=== PATIENT | male | born 1950 | race Caucasian/White ===

== ENCOUNTER 2018-04-21 15:30 | Emergency (ER) | payer MEDICARE, SELFPAY ==
[2018-04-21 15:31] VITALS: BP 153/88; PULSE 77; RESP 17; TEMP 36.6; O2SAT 100; BMI 23.0
--- NOTE | 2018-04-21 15:46 | CT_ITS ---
CT/Abdomen/Pelvis without Cont IMPRESSION: Probable 5 mm left UVJ stone causing mild hydronephrosis. Electronically Signed: Willie Wright MD at 17:08 EDT , Service support ,
--- NOTE | 2018-04-21 15:47 | ED.VISSUMM ---
- ER Visit Summary Date of Service: 04/21/18 Chief Complaint: Abdominal pain History of Present Illness: The patient is a 67 M presenting with abdominal pain. Patient states it started earlier today and has been gradually worsening throughout the day. Pain is in the left lower quadrant. He has nausea with no vomiting. He has a history of previous gastrectomy and cholecystectomy. History of previous kidney stones and states this feels similar. Denies hematuria or dysuria. Physical Examination: Vitals are stable. Patient is afebrile. Alert no acute distress. HEENT exam is unremarkable. Neck is supple. Lungs are clear and equal bilaterally. Heart is regular rate and rhythm. Abdomen is soft mild left lower quadrant tenderness without rebound or guarding Extremities are unremarkable. Skin is warm and dry. No focal neurologic deficit. Remainder of exam is unremarkable. Emergency Department Course and Treatment: Patient is given IV fluids, morphine, Zofran IV. CBC normal except for platelet 142 which is at his baseline. Chemistry showed BUN 22. Urinalysis shows positive blood, [address] abdomen and pelvis shows probable 5 mm left UVJ stone causing mild hydronephrosis. Patient continues to have pain and was given additional dose of morphine. On reevaluation, he feels improved. He will follow-up with Dr. Gregg. Advised to return to ED for any worsening complaints. Disposition: Discharged home Impression: Urolithiasis This note was generated with PowerMag dictation software. It may contain incorrect words, spelling, and punctuation that were not noted in review of the chart prior to signing ED Disposition - Plan for ED Patient: Chief Complaint: Abd Pain Instructions: ED Stone Renal W Colic Prescriptions: Oxycodone HCl/Acetaminophen [Percocet 5/325] 1 tablet PO Q6H PRN PRN 3 Days #12 tablet PRN Reason: Pain Referrals: Torsten Gregg MD [STAFF PHYSICIAN] - Piyush Rivera MD [Primary Care Provider] -
[2018-04-21 16:22] LABS: Bacteria 0 SEEN /hpf (None Seen); Mucous, Urine 0 SEEN /hpf (<or=2+); Red Blood Cells-Urine 0 SEEN /hpf (0-5); Squamous Epithelial Cells - UA 0 SEEN /hpf (0-5); White Blood Cells 0 SEEN /hpf (0-5)
[2018-04-21 16:25] LABS: Color, Urine Yellow (Yellow); Glucose, Dipstick Normal (Normal); Ketone-Dipstick 5 mg/dl (Negative); Leukocyte Esterase-Dipstick Negative /ul (Negative); Nitrite-Dipstick Negative (Negative); Occult Blood-Urine 50 /ul (Negative); Protein-Dipstick Negative (Negative); Urine Bilirubin Dipstick Negative (Negative); Urine Clarity Clear (Clear); Urine Urobilinogen Normal (Normal)
[2018-04-21] MEDS: Morphine 4 MG/ML Syringe IV ×2 (16:27→17:42)
[2018-04-21] MEDS: Ondansetron 4 MG/2 ML Vial IV (16:28)
[2018-04-21 16:43] LABS: Absolute Lymphocyte Count 1.25 X10^3/ul (0.83-4.51); Absolute Neutrophil Count 5.8 X10^3/uL (2.0-7.7); Basophil# 0.02 X10^3/uL; Basophil% 0.3 % (0-1); Eosinophil# 0.07 X10^3/uL; Eosinophils% 0.9 % (0-5); Hematocrit 44.3 % (40-54); Hemoglobin 14.3 g/dl (13.0-16.5); Lymphocyte # 1.25 X10^3/ul (4.0); Mean Corp Hgb Conc 32.3 g/gl (32-36); Mean Corpuscular Hgb 29.2 pg (27.0-32.0); Mean Corpuscular Volume 90.6 fL (80-94); Mean Platelet Vol. 10.9 fl (6.2-12.0); Monocyte# 0.68 X10^3/uL; Monocyte% 8.7 % (0-10); Neutrophil # 5.79 X10^3/uL (2.7-7.7); Neutrophil % 74.1 % (47-70); Platelet Count 142 K/mm3 (150-450); RBC Distribution Width CV 14.2 % (11.6-14.6); RBC Distribution Width SD 46.7 fl (35.1-43.9); Red Blood Count 4.89 M/mm3 (4.6-6.2); White Blood Count 7.8 K/mm3 (4.4-11.0)
[2018-04-21 16:44] LABS: POSITIVE COUNT NO; POSITIVE DIFFERENTIAL NO; POSITIVE MORPHOLOGY NO
[2018-04-21 17:02] LABS: Anion Gap 9 (5-15); BUN 22 mg/dL (7-18); BUN/Creat Ratio 20.6 RATIO (10-20); Calcium,Total 8.8 mg/dL (8.5-10.1); Chloride 108 mmol/L (98-107); Creatinine, Serum 1.07 mg/dL (0.70-1.30); EST Glomerular Filtration Rate 73 mL/min (>60); Est Glom Filt Rate - Afr Amer 88 mL/min (>60); Estimated Creatinine Clearance 72.87 ml/min; Glucose 103 mg/dL (74-106); Potassium 4.5 mmol/L (3.5-5.1); Sodium Level 142 mmol/L (136-145)
[2018-04-21 17:46] VITALS: BP 156/87; PULSE 78; RESP 18; O2SAT 97
--- NOTE | 2018-04-21 18:21 | ED.DEP ---
ED Disposition - Plan for ED Patient: Chief Complaint: Abd Pain Instructions: ED Stone Renal W Colic Prescriptions: Oxycodone HCl/Acetaminophen [Percocet 5/325] 1 tablet PO Q6H PRN PRN 3 Days #12 tablet PRN Reason: Pain Referrals: Piyush Rivera MD [Primary Care Provider] - Torsten Gregg MD [STAFF PHYSICIAN] -
[2018-04-21 18:31] VITALS: PULSE 83; RESP 18; O2SAT 96
[2018-04-21] MEDS: oxyCODONE 5 MG Tablet PO (18:31)
== END 2018-04-21 18:32 | disposition home or self-care (01) ==
LOC: ED 16:14
PROVIDERS: Emergency Provider Emergency Medicine; Family Provider Internal Medicine; PCP Internal Medicine
DX: N13.2 Hydronephrosis with renal and ureteral calculous obstruction (principal); I10 Essential (primary) hypertension; N40.0 Benign prostatic hyperplasia without lower urinary tract symptoms; Z79.82 Long term (current) use of aspirin; Z79.899 Other long term (current) drug therapy; Z87.442 Personal history of urinary calculi; Z90.3 Acquired absence of stomach [part of]; Z90.49 Acquired absence of other specified parts of digestive tract
CPT/HCPCS: 74176; 80048; 81001; 85025; 96361; 96374; 96375; 96376; 99283; J7030; J7040; A4216; J2405

== ENCOUNTER → 2018-05-30 09:00 | Outpatient (CLI) | payer MEDICARE, SELFPAY ==
--- NOTE | 2018-05-30 09:04 | RAD_ITS ---
STUDY: X-RAY - ABDOMEN/PELVIS REASON FOR EXAM: Male, 68 years old. Follow-up kidney stones TECHNIQUE: Two AP supine views of the abdomen and pelvis. COMPARISON: CT abdomen pelvis 04/21/2018 FINDINGS: Normal visualized lung bases. The left urinary bladder calculus passed the UVJ on previous CT examination is not visualized. There are small phleboliths. There is an unremarkable bowel gas pattern. There is no demonstrated free abdominal air. The visualized liver, spleen and kidneys are grossly normal in size and morphology. Normal soft tissue structures. Surgical changes in the right upper abdomen and epigastrium. There are diffuse degenerative changes of the visualized lumbar spine. Dextroscoliosis. RAD/Abdomen Single View IMPRESSION: Resolution of previous left urinary bladder calculus past the left UVJ on previous CT. Stable degenerative changes, postsurgical changes and scoliosis. Electronically Signed: Karen Hutson MD at 4:13 EDT , Service support ,
== END ==
PROVIDERS: Family Provider Internal Medicine; PCP Internal Medicine; Visit Provider Urology
DX: N20.0 Calculus of kidney (principal)
CPT/HCPCS: 74018

== ENCOUNTER → 2019-01-29 10:12 | Outpatient (CLI) | payer MEDICARE, SELFPAY ==
--- NOTE | 2019-01-29 10:28 | EKG12_ITS ---
Test Reason : PRE OP Blood Pressure : / mmHG Vent. Rate : 072 BPM Atrial Rate : 072 BPM P-R Int : 148 ms QRS Dur : 128 ms QT Int : 426 ms P-R-T Axes : 054 -50 -05 degrees QTc Int : 466 ms Normal sinus rhythm Right bundle branch block Left anterior fascicular block Bifascicular block Abnormal ECG Confirmed by DONNELL GARCIA ([id number]), assignment desk editor ZEINA RANDALL ([id number]) on 01/31/2019 6:06:50 AM Referred By: Andres Hernandez Confirmed By:DONNELL GARCIA
[2019-01-29 10:45] LABS: Absolute Lymphocyte Count 1.59 X10^3/ul (0.83-4.51); Absolute Neutrophil Count 3.5 X10^3/uL (2.0-7.7); Basophil# 0.03 X10^3/uL; Basophil% 0.5 % (0-1); Eosinophil# 0.07 X10^3/uL; Eosinophils% 1.2 % (0-5); Hematocrit 45.4 % (40-54); Hemoglobin 14.9 g/dl (13.0-16.5); Lymphocyte # 1.59 X10^3/ul (4.0); Lymphocyte % 26.6 % (19-41); Mean Corp Hgb Conc 32.8 g/gl (32-36); Mean Corpuscular Hgb 29.6 pg (27.0-32.0); Mean Corpuscular Volume 90.1 fL (80-94); Mean Platelet Vol. 11.6 fl (6.2-12.0); Monocyte# 0.75 X10^3/uL; Monocyte% 12.6 % (0-10); Neutrophil # 3.52 X10^3/uL (2.7-7.7); Neutrophil % 58.9 % (47-70); Platelet Count 165 K/mm3 (150-450); RBC Distribution Width CV 13.8 % (11.6-14.6); RBC Distribution Width SD 45.4 fl (35.1-43.9); Red Blood Count 5.04 M/mm3 (4.6-6.2)
[2019-01-29 10:47] LABS: POSITIVE COUNT NO; POSITIVE DIFFERENTIAL NO; POSITIVE MORPHOLOGY NO
[2019-01-29 11:11] LABS: Anion Gap 8 (5-15); BUN 16 mg/dL (7-18); Chloride 107 mmol/L (98-107); Creatinine, Serum 1.07 mg/dL (0.70-1.30); EST Glomerular Filtration Rate 73 mL/min (>60); Est Glom Filt Rate - Afr Amer 88 mL/min (>60); Glucose 95 mg/dL (74-106); Potassium 4.2 mmol/L (3.5-5.1); Sodium Level 144 mmol/L (136-145)
== END ==
PROVIDERS: Family Provider Internal Medicine; PCP Internal Medicine; Referring Provider Physician Assistant; Visit Provider Physician Assistant
DX: Z01.810 Encounter for preprocedural cardiovascular examination (principal); I45.10 Unspecified right bundle-branch block
CPT/HCPCS: 36415; 80048; 85025; 93005

== ENCOUNTER → 2019-04-29 08:45 | Outpatient (CLI) | payer MEDICARE, SELFPAY ==
--- NOTE | 2019-04-29 08:00 | PROSBIL_PTH ---
PATIENT: SARAH HARDIN Jr. LOC: [facility] U#:[id number] AGE/SX: 75/M ROOM: RE04/29/[address]: Dr. Torsten Gregg MD : 1950 BED: DIS: SPEC #: [id number] RECD: 04/29/19 17:25 STATUS: JOSELO JOSE MARTIN #: [id number] OSMEL: 04/29/19 08:[address]: Torsten Gregg DEPT: SURGICAL PATHOLOGY RECD BY: Naz Stringer ENTERED: 04/30/19 11:17 SP TYPE: PROST BX LELA DR: Dr. Piyush Rivera MD Tissues: A - PROSTATE RIGHT B - PROSTATE RIGHT C - PROSTATE RIGHT D - PROSTATE LEFT E - PROSTATE LEFT F - PROSTATE LEFT Procedures: PROSTATE BX HEADER OPERATION: Prostate biopsy PRE-OP DIAGNOSIS: Elevated PSA TISSUE SUBMITTED: A - Right apex, B - Right mid, C - Right base, D - Left apex, E - Left mid, F - Left base MICROSCOPIC DIAGNOSIS A. Right prostate, apex, core biopsy: Prostatic tissue, negative for malignancy. Focal basal cell hyperplasia. B. Right prostate, mid, core biopsy: Prostatic tissue, negative for malignancy. Focal basal cell hyperplasia. C. Right prostate, base, core biopsy: Prostatic tissue, negative for malignancy. Focal atrophy and basal cell hyperplasia. D. Left prostate, apex, core biopsy: Prostatic tissue, negative for malignancy. Focal basal cell hyperplasia. E. Left prostate, mid, core biopsy: Prostatic tissue, negative for malignancy. Focal basal cell hyperplasia and mild chronic inflammation. F. Left prostate, base, core biopsy: Prostatic tissue, negative for malignancy. Focal atrophy and basal cell hyperplasia. SJ:gualberto 05/01/19 MICROSCOPIC DESCRIPTION Slides are reviewed. GROSS DESCRIPTION A - Received is one container designated prostate, right apex. The specimen consists of two elongated fragments of light sanders-white soft tissue each measuring 1 cm in length and 0.1 cm in diameter. The specimen is totally submitted in one cassette. B - Received is one container designated prostate, right mid. The specimen consists of two elongated fragments of light sanders-white soft tissue each measuring 1 cm in length and 0.1 cm in diameter. The specimen is totally submitted in one cassette. C - Received is one container designated prostate, right base. The specimen consists of two elongated fragments of light sanders-white soft tissue each measuring 1 cm in length and 0.1 cm in diameter. The specimen is totally submitted in one cassette. D - Received is one container designated prostate, left apex. The specimen consists of two elongated fragments of light sanders-white soft tissue each measuring 1 cm in length and 0.1 cm in diameter. The specimen is totally submitted in one cassette. E - Received is one container designated prostate, left mid. The specimen consists of two elongated fragments of light sanders-white soft tissue each measuring 1.5 cm in length and 0.1 cm in diameter. The specimen is totally submitted in one cassette. F - Received is one container designated prostate, left base. The specimen consists of two elongated fragments of light sanders-white soft tissue each measuring 1 cm in length and 0.1 cm in diameter. The specimen is totally submitted in one cassette. / AM:gualberto 04/30/19 TC:5 CPT: G0146
== END ==
PROVIDERS: Family Provider Internal Medicine; PCP Internal Medicine; Referring Provider Urology; Visit Provider Urology
DX: R97.20 Elevated prostate specific antigen [PSA] (principal)
CPT/HCPCS: 88305; G0416

== ENCOUNTER → 2020-06-22 09:04 | Outpatient (CLI) | payer MEDICARE, SELFPAY ==
[2020-06-22 10:32] LABS: PSA,Total- Diagnostic 7.55 ng/mL (0.0-4.0)
== END ==
PROVIDERS: PCP Internal Medicine; Referring Provider Urology; Visit Provider Urology
DX: R97.20 Elevated prostate specific antigen [PSA] (principal)
CPT/HCPCS: 36415; 84153

== ENCOUNTER → 2021-07-07 09:56 | Outpatient (CLI) | payer MEDICARE, SELFPAY ==
[2021-07-07 10:55] LABS: PSA,Total- Diagnostic 5.32 ng/mL (0.0-4.0)
== END ==
PROVIDERS: PCP Internal Medicine; Referring Provider Urology; Visit Provider Urology
DX: N40.1 Benign prostatic hyperplasia with lower urinary tract symptoms (principal)
CPT/HCPCS: 36415; 84153

== ENCOUNTER → 2022-04-20 | Outpatient (CLI) | payer MEDICARE, SELFPAY ==
[2022-04-20 15:18] LABS: PSA,Total- Diagnostic 6.14 ng/mL (0.0-4.0)
== END | disposition home or self-care (01) ==
LOC: LAB 14:23
PROVIDERS: PCP Internal Medicine; Referring Provider Urology; Visit Provider Urology
DX: N40.1 Benign prostatic hyperplasia with lower urinary tract symptoms (principal)
CPT/HCPCS: 36415; 84153

== ENCOUNTER → 2023-05-07 | Outpatient (CLI) | payer MEDICARE, SELFPAY ==
[2023-05-07 12:06] LABS: PSA,Total- Diagnostic 6.23 ng/mL (0.0-4.0)
== END | disposition home or self-care (01) ==
LOC: LAB.FUTURE 11:11
PROVIDERS: PCP Internal Medicine; Referring Provider Urology; Visit Provider Urology
DX: R97.20 Elevated prostate specific antigen [PSA] (principal); N40.1 Benign prostatic hyperplasia with lower urinary tract symptoms
CPT/HCPCS: 36415; 84153

== ENCOUNTER → 2024-10-28 | Outpatient (CLI) | payer MEDICARE, SELFPAY | END | disposition home or self-care (01) | LOC: LAB 11:32 | PROVIDERS: PCP Internal Medicine; Referring Provider Nurse Practitioner; Visit Provider Nurse Practitioner | DX: R97.20 Elevated prostate specific antigen [PSA] (principal) | CPT/HCPCS: 36415; 84153 ==

== ENCOUNTER → 2024-11-06 | Outpatient (CLI) | payer MEDICARE, SELFPAY ==
[2024-11-09 08:08] LABS: PSA, Free 3.97 ng/mL; PSA, Free % 23.2 % (.)
== END | disposition home or self-care (01) ==
LOC: LAB 15:37
PROVIDERS: PCP Internal Medicine; Referring Provider Urology; Visit Provider Urology
DX: R97.20 Elevated prostate specific antigen [PSA] (principal)
CPT/HCPCS: 36415; 84153; 84154

== ENCOUNTER → 2024-12-25 | Outpatient (CLI) | payer MEDICARE, SELFPAY ==
--- NOTE | 2024-12-25 11:18 | MRI_ITS ---
PROCEDURE: PELVIS W/WO CONTRAST (MRIPELWW), 12/25/2024 REASON FOR EXAM: ELEVATED PSA. PSA reportedly 17.0 per technologist report. TECHNIQUE: Multisequence multiplanar MRI pelvis was performed with and without IV contrast. CONTRAST: 15 mL Clariscan COMPARISON: None FINDINGS: Variable overall mild motion limitation. A few sequences are moderately motion degraded. Prostate size: 7.1 x 5.7 x 7.8 cm, estimated volume 164 mL. Per the above provided PSA, PSA density is 0.104 ng/mL. Transition zone: PI-RADS 2 findings. Peripheral Zone: Minimal background changes of likely prostatitis (PI-RADS 2). Neurovascular bundles: Unremarkable. Seminal vesicles: Unremarkable. Bladder: Underdistended and suboptimally evaluated. Mass-effect by the enlarged prostate with appearance suggestive of chronic bladder outlet obstruction. Lymph nodes: Borderline mildly enlarged RIGHT inguinal node, 14 mm short axis. Enlarged RIGHT posterolateral mesorectal node measures 13 x 7 mm. Bones: Diffusely heterogeneous marrow signal. Ill-defined suspicious enhancement and restricted diffusion in the RIGHT superior pubic ramus spanning 3.2 cm. Additional areas of small restricted diffusion in the anterior acetabuli bilaterally without measurable correlate in some areas. Tiny foci of enhancement in the anterior RIGHT sacrum abutting the SI joint of 2 7 mm could be degenerative. Lumbar spondylosis. Other: None. MRI/Pelvis W/WO Contrast IMPRESSION: 1. Marked prostatomegaly and sequela of minimal likely prostatitis without high risk lesion identified (PI-RADS 2). 2. Findings suspicious for pelvic bony metastasis in light of reported history of malignancy, largest lesion in the RIGHT pubic bone measures 3.2 cm with some being difficult to discretely measure. A few ti ny foci of enhancement in the RIGHT sacrum adjacent the SI joint may be degenerative. Clinical/oncologic follow-up recomm ended. 3. Enlarged RIGHT posterolateral mesorectal node is nonspecific and may be reac tive in the absence of known rectal neoplasm, however given the context, close follow-up is warranted. 4. Borderline mildly enlarged RIGHT inguinal node. Attention on follow-up. 5. Additional description as above. Reading Location: [id number]
== END | disposition home or self-care (01) ==
PROVIDERS: PCP Internal Medicine; Referring Provider Urology; Visit Provider Urology
DX: R97.20 Elevated prostate specific antigen [PSA] (principal)
CPT/HCPCS: 72197; A9575; A4216

== ENCOUNTER → 2025-01-05 | Outpatient (CLI) | payer MEDICARE, SELFPAY ==
--- NOTE | 2025-01-05 08:00 | PROSBIL_PTH ---
PATIENT: SARAH HARDIN Jr. LOC: [facility] U#:[id number] AGE/SX: 74/M ROOM: RE01/05/[address]: Dr. Torsten Gregg MD : 1950 BED: DIS: 01/05/2025 SPEC #: [id number] RECD: 01/05/25 13:00 STATUS: JOSELO JOSE MARTIN #: [id number] OSMEL: 01/05/25 08:[address]: Torsten Gregg DEPT: SURGICAL PATHOLOGY RECD BY: Doroteo Vital ENTERED: 01/06/25 08:23 SP TYPE: PROST BX LELA DR: Dr. Piyush Rivera MD Tissues: A - PROSTATE RIGHT B - PROSTATE RIGHT C - PROSTATE RIGHT D - PROSTATE LEFT E - PROSTATE LEFT F - PROSTATE LEFT Procedures: PROSTATE BX HEADER OPERATION: Prostate biopsy PRE-OP DIAGNOSIS: Elevated PSA TISSUE SUBMITTED: A - Right apex, B - Right mid, C - Right base, D - Left apex, E - Left mid, F - Left base MICROSCOPIC DIAGNOSIS A. Prostate, right apex, biopsy: * Benign prostatic tissue B. Prostate, right mid, biopsy: * Benign prostatic tissue C. Prostate, right base, biopsy: * Benign prostatic tissue D. Prostate, left apex, biopsy: * Benign prostatic tissue E. Prostate, left mid, biopsy: * Benign prostatic tissue F. Prostate, left base, biopsy: * Benign prostatic tissue MICROSCOPIC DESCRIPTION Slides are reviewed. GROSS DESCRIPTION A. Received in formalin in a container labeled with the patient's name, date of , and RA is a 0.8 x 0.1 cm thin and wispy core biopsy of soft tissue. Submitted in toto in A1. B. Received in formalin in a container labeled with the patient's name, date of , and RM is a 1.0 x 0.1 cm white and wispy core biopsy of soft tissue. Submitted in toto in B1. C. Received in formalin in a container labeled with the patient's name, date of , and RB is a 1.3 x 0.1 cm core biopsy of white and wispy soft tissue. Submitted in toto in C1. D. Received in formalin in a container labeled with the patient's name, date of , and LA is a 1.4 x 0.1 cm thin and wispy core biopsy of soft tissue. Submitted in toto in D1. E. Received in formalin in a container labeled with the patient's name, date of , and LM is a 1.0 x 0.1 cm white and wispy core biopsy of soft tissue. Submitted in toto in E1. F. Received in formalin in a container labeled with the patient's name, date of , and LB is a 1.3 x 0.1 cm white and wispy core biopsy of soft tissue. Submitted in toto in F1. [facility] 01-06-2025 CPT: G0146
== END | disposition home or self-care (01) ==
LOC: LABSPEC 16:57
PROVIDERS: PCP Internal Medicine; Referring Provider Urology; Visit Provider Urology
DX: R97.20 Elevated prostate specific antigen [PSA] (principal)
CPT/HCPCS: 88305; G0416

== ENCOUNTER → 2025-01-08 | Outpatient (CLI) | payer MEDICARE, SELFPAY ==
--- NOTE | 2025-01-08 10:02 | NM_ITS ---
PROCEDURE: BONE SCAN WHOLE BODY 01/08/2025 REASON FOR EXAM: ELEVATED PROSTATE SPECIFIC ANTIGEN TECHNIQUE: Anterior and posterior body bone scan performed after radiopharmaceutical administration RADIOPHARMACEUTICAL: 28 mCi Technetium-99m MDP IV COMPARISON: CORRELATION WITH EXISTING RELEVANT IMAGING STUDIES (i.e. x-ray, MRI, CT, etc.): No existing relevant imaging study available , patient did not have a previous relevant imaging study. FINDINGS: Mild thoracolumbar dextroscoliosis is noted Degenerative changes are seen of the knees, spine, and bilateral 1st carpal- metacarpal joints. No findings are seen to suggest the presence of osseous metastatic disease. NM/Bone Scan Whole Body IMPRESSION: No scintigraphic evidence of osseous metastatic disease Reading Location: [place] [id number]
== END | disposition home or self-care (01) ==
LOC: NM 09:58
PROVIDERS: PCP Internal Medicine; Referring Provider Urology; Visit Provider Urology
DX: R97.20 Elevated prostate specific antigen [PSA] (principal)
CPT/HCPCS: 78306; A9503

== ENCOUNTER 2025-02-15 08:23 | Emergency (ER) | payer MEDICARE, SELFPAY ==
[2025-02-15 08:23] VITALS: BP 154/81; PULSE 88; RESP 16; TEMP 36.6; O2SAT 99; BMI 23.3
--- NOTE | 2025-02-15 08:34 | EDS_ITS ---
HPI History of Present Illness Chief Complaint: Complaint [facility] Medical History (Updated 02/15/25 @ 09:[address] Deshawn Mendez DO) History of gastric cancer History of kidney stones Hypertension Acute calculous cholecystitis Home Medications ?Medication ?Instructions ?Recorded ?Last Taken ?Type amlodipine 10 mg tablet 10 mg PO DAILY blood pressur e 12/15/16 08/15/17 History aspirin 81 mg chewable tablet 81 mg PO QHS heart 12/1508/14/17 History finasteride 5 mg tablet 5 mg PO DAILY prostate 12/1508/14/17 History folic acid 400 mcg tablet 0.4 mg PO DAILY supplement 0 12/15/16 08/14/17 History uxauwrky-kor-atjps acid 0.4 1 ea PO DAILY supplement 0 12/15/16 08/14/17 History mg-lycopene 300 mcg-lutein 250 mcg tablet tamsulosin 0.4 mg capsule 0.4 mg PO QHS prostate 12/1508/14/17 History vitamin B complex 1 ea PO QMONTH 12/15/1606/27 History ergocalciferol (vitamin D2) 1,250 50,000 units PO MO s upplement 08/15/17 08/13/17 History mcg (50,000 unit) capsule ciprofloxacin HCl 500 mg tablet 500 mg PO BID #14 TABL ETS 02/15/25 Unknown Rx lisinopril 40 mg tablet 40 mg PO DAILY 02/15/25 Unkn own History Allergy/AdvReac Type Severity Reaction Status Date / Time No Known Allergies Allergy Verified 02/15/25 08:23 Surgical History (Updated 08/24/17 @ 08:48 by Luna Conde) S/P laparoscopic cholecystectomy (~08/16/17) Social History (Updated 08/28/17 @ 13:[address] Ruperto Berrios MD) Smoking Status: Former smoker EXAM Physical Exam Const Vital Signs: 02/15/25 08:23 Temperature 97.8 F Temperature Source Oral Pulse Rate 88 Respiratory Rate 16 Blood Pressure 154/81 H Blood Pressure Mean 105 Pulse Ox 99 Oxygen Delivery Method Room Air MDM MDM MDM Narrative Medical decision making narrative: HISTORY OF PRESENT ILLNESS: Chief complaint: Urinary retention 74-year-old male history of hypertension, BPH on tamsulosin and finasteride presents with inability urinate. He states this began []. He endorses dribbling a few drops. Endorses constant pressure and urge to urinate. Notes lower abdominal pain as well. REVIEW OF SYSTEMS: Pertinent positives: Urinary retention Pertinent negatives: As per [facility] PHYSICAL EXAM: Nursing triage notes reviewed, Vital signs reviewed Constitutional: please see [facility] HENT: MMM Eyes: Pupils equal round and reactive to light, Extraocular muscles intact Neck: No stridor, no JVD, full neck ROM Lungs: Clear to auscultation, No wheezing or rales. No increased work of breathing, no conversational dyspnea, no accessory muscle use, no nasal flaring. No respiratory distress noted Heart: Regular rate and rhythm, No murmurs, No rubs and No gallops, 2+ distal pulses (radial, femoral, posterior tibial) in all extremities Abdomen: Soft, there is no tenderness, obvious distention to lower abdomen over bladder, no rigidity, rebound or guarding, no obvious peritoneal signs, no palpable pulsatile abdominal masses, no auscultated abdominal bruit : No CVAT Extremities: No edema Neuro: No new focal neurological deficits, cranial nerves II through XII intact, 5/5 strength in all present extremities. Intact sensation to light touch in all present extremities, 2+ reflexes bilateral patella tendons. Skin: No rash or lesions noted MEDICAL DECISION MAKING: Chief Complaint: please see [facility] External records reviewed: Reviewed prior imaging studies, reviewed current medi cations Factors affecting care: history of nephrolithiasis, BPH Social determinants of health: none History obtained from others: none Consults: none [facility] Narrative: The patient was initially hemodynamically stable, afebrile and nontoxic- appearing. Exam consistent with urinary tension. Bedside bladder scan showed bladder volume approximate 850 cc I considered the following differential diagnosis: Urinary retention, ALICIA, UTI I obtained labs including BMP and urinalysis to assess if there is any sign of ALICIA or UTI. Mcmahon catheter was placed with return of approximately 1 L of clear urine. Patient noted immediate relief. ALL IMAGES (IF OBTAINED) HAVE BEEN PERSONALLY REVIEWED AND INTERPRETED BY MYSELF. CBC without leukocytosis, severe anemia, no thrombocytopenia. CMP without evidence of acute kidney injury, significant electrolyte abnormality, anion gap to suggest end organ hypo-perfusion, no evidence of metabolic acidosis with a normal bicarbonate, no evidence of hepatobiliary obstructive pathology Urinalysis, urine culture pending. Will prophylactically treat with antibiotics given urinary retention and recent urethral manipulation with Mcmahon catheter placement. Will give instructions on Mcmahon catheter management, return precautions, follow-up instructions with urology. The patient and/or family, caregivers express understanding. The patient and/or family, caregivers agrees with the plan. Shared decision making: I will have a discussion with the patient and or visitors regarding risk/benefits of further testing or admission. They will be made aware of of the risk/benefits inherent in this decision they will be given the opportunity to voice understanding. Total critical care time today provided was at least 0 minutes. This excludes separately billable procedures. Critical care time (if documented) is secondary to the patient having high probability of clinically significant/life threatening deterioration in the patient's condition which required my urgent intervention. Impression: 1. Urinary tension 2. History of BPH Dispo: Discharge home This note was generated with [employer] [place] dictation software. It may contain incorrect words, spelling, and punctuation that were not noted in review of the chart prior to signing. Lab Data Labs: Laboratory Results - last 24 hr 02/15/25 08:55 WBC 9.7 RBC 4.57 L Hgb 13.2 Hct 40.0 MCV 87.5 MCH 28.9 MCHC 33.0 RDW Std Deviation 45.8 H RDW Coeff of Gogo 14.4 Plt Count 183 MPV 11.1 Immature Gran % (Auto) 0.500 Neut % (Auto) 79.4 H Lymph % (Auto) 11.3 L Daniels % (Auto) 8.3 Eos % (Auto) 0.2 Baso % (Auto) 0.3 Absolute Neuts (auto) 7.7 Absolute Lymphs (auto) 1.09 Nucleated RBC % 0 Sodium 140 Potassium 3.9 Chloride 104 Carbon Dioxide 25.1 Anion Gap 11 BUN 17 Creatinine 1.16 Estim Creat Clear Calc 59.50 Est GFR (MDRD) Non-Af 66 BUN/Creatinine Ratio 14.7 Glucose 123 H Calcium 9.1 Discharge Plan Triage Chief Complaint: Complaint ED Provider: Deshawn Mendez Dx/Rx/DC Orders Clinical Impression: Urinary retention Instructions: ED Mcmahon Catheter, Care, ED Urinary Retention, Male Prescriptions: New ciprofloxacin HCl 500 mg tablet 500 mg PO BID Qty: 14 0RF No Action folic acid 0.4 MG tablet 0.4 mg PO DAILY Patient Comments: supplement tamsulosin 0.4 MG capsule 0.4 mg PO QHS Patient Comments: prostate amlodipine 10 MG tablet 10 mg PO DAILY Patient Comments: blood pressure aspirin 81 MG tablet,chewable 81 mg PO QHS Patient Comments: health maintenance finasteride 5 MG tablet 5 mg PO DAILY Patient Comments: prostate vitamin B complex 1 EACH capsule 1 ea PO QMONTH Patient Comments: supplement uczrsdly-rwi-AX-lycopen-lutein 1 EACH tablet 1 ea PO DAILY Patient Comments: supplement ergocalciferol (vitamin D2) 50,000 U capsule 50,000 units PO MO Patient Comments: lisinopril 40 mg tablet 40 mg PO DAILY Primary Care Provider: Piyush Rivera Referrals: Torsten Gregg MD [Med Staff - Active Staff] - Activity Restrictions/Additional Instructions: Thank you for trusting us with your care today! Your history, physical exam and labs were most consistent with urinary retention. Please keep Mcmahon in place until you follow-up with urology as an outpatient. You have been prescribed antibiotics given Mcmahon catheter increased risk of infection please take antibiotics as prescribed. Please take Tylenol (2 pills, 650 mg), ibuprofen (2 pills, 400 mg) every 6 hours as needed for pain and fever control. Please return to the emergency department if your symptoms change or worsen. Please follow with your primary care physician for further outpatient evaluation and management. Print Language: Lebanese Disposition Disposition: Home, Self Care
--- OUTSIDE RECORDS SUMMARY | 2025-02-15 08:45 | XMS RPT_ITS | CCD ---
Author Organization [facility] Care Team Providers Care Bus And Trolley Dispatcher Name Role Phone Miguel EDWARDS, Piyush Naidu Primary Care Provider Miguel EDWARDS, Piyush Naidu Primary Care Provider Ju SIMEON.Negra JENNINGS Unavailable Miguel EDWARDS, Dr. Pickett Primary Care Provider Maspeth, Michelle Attending Provider [phone] Maspeth, Michelle Referring Provider [phone] Cristino EDWARDS, Dr. Torsten Mccord Attending Provider Cristino EDWARDS, Dr. Torsten Mccord Referring Provider Torsten Gregg Attending Unavailable Rivera, Piyush Primary Care Unavailable CristinoTorsten Referring Unavailable Rivera, Piyush Primary Care Unavailable Maspeth, Michelle Attending Unavailable MaspethMichelle Referring Unavailable CristinoTorsten Referring Unavailable Rivera, Piyush Primary Care Unavailable CristinoTorsten Attending Unavailable CristinoTorsten Referring Unavailable Rivera, Piyush Primary Care Unavailable CristinoTorsten Attending Unavailable CristinoTorsten Referring Unavailable Rivera, Piyush Primary Care Unavailable CristinoTorsten Attending Unavailable NEGRA UGALDE Referring Unavailable RIVERA, PIYUSH Naidu Primary Care Unavailable RIVERAPIYUSH Attending Unavailable RIVERA, FROILAN Primary Care Unavailable RIVERA, PIYUSH Naidu Referring Unavailable RIVERA, PIYUSH Naidu Primary Care Unavailable RIVERA, PIYUSH Naidu Primary Care Unavailable RIVERA, PIYUSH Naidu Primary Care Unavailable RIVERA, PIYUSH Naidu Primary Care Unavailable RIVERA, PIYUSH Naidu Referring Unavailable RIVERA, PIYUSH Naidu Primary Care Unavailable RIVERA, PIYUSH Naidu Attending Unavailable RIVERA, FROILAN Primary Care Unavailable RIVERA, FROILAN Primary Care Unavailable RIVERA, PIYUSH Naidu Primary Care Unavailable AMEYA AGUDELO Referring Unavailable RIVERA, PIYUSH Naidu Primary Care Unavailable RIVERA, PIYUSH Naidu Attending Unavailable RIVERA, PIYUSH Naidu Primary Care Unavailable RIVERA, PIYUSH Naidu Primary Care Unavailable NEGRA UGALDE Attending Unavailable RIVERA, PIYUSH Naidu Primary Care Unavailable RIVERA, PIYUSH Naidu Primary Care Unavailable RIVERA, PIYUSH Naidu Referring Unavailable RIVERA, PIYUSH Naidu Primary Care Unavailable RIVERA, PIYUSH Naidu Primary Care Unavailable RIVEAR, PIYUSH Naidu Primary Care Unavailable RIVERA, PIYUSH Naidu Primary Care Unavailable RIVERA, PIYUSH Naidu Referring Unavailable RIVERA, PIYUSH Naidu Primary Care Unavailable RIVERA, PIYUSH Naidu Referring Unavailable RIVERA, PIYUSH Naidu Primary Care Unavailable RIVERA, PIYUSH Naidu Primary Care Unavailable AMEYA AGUDELO Referring Unavailable RIVERA, PIYUSH Naidu Primary Care Unavailable RIVERA, PIYUSH Naidu Attending Unavailable RIVERA, PIYUSH Naidu Primary Care Unavailable RIVERA, PIYUSH Naidu Primary Care Unavailable Allergies Allergy Classification Reported Allergen(s) Allergy Type Date of Onset Reaction(s) Facility Bacitracin / Polymyxin B (1 source) Bacitracin / Polymyxin B Drug Allergy 07-15-2007 [facility] Work Phone: (20 sources) Bacitracin / Polymyxin B; Translations: [BACITRACIN-POLYM YXIN B] Drug Allergy 07-15-2007 [facility] Work Phone: Medications Current Medications Medication Drug Class(es) Dates Sig (Normalized) Sig (Original) acetaminophen 325 mg / oxyCODONE hydrochloride 5 mg oral tablet (5 sources) Opioid Agonist Start: 04-21-2018 Oxycodone-Acetamin ophen 1 TABLET tablet Active 1 {tbl} PO EVERY 6 HOURS NEEDED as needed for Pain 07 29April 21, 2018 12:00am Start: 04-21-2018 take 1 tablet by jammie th every six hours as needed Oxycodone-Acetaminophen Active 1 TABLET PO EVERY 6 HOURS NEEDED 07 29April 21, 2018 12:00am amLODIPine 10 mg oral tablet (20 sources) Dihydropyridine Calcium Channel Paulina Start: 12-15-2016 End: 08-28-2024 take 1 tablet by mouth once daily amLODIPine (NORVASC) 10 mg tablet Take 1 tablet by mouth once daily. 90 tablet 3 02/20/2024 Active Comment on above: Take 1 tablet by jammie th once daily. aspirin 81 mg chewable tablet (20 sources) Platelet Aggregation Inhibitor, Nonsteroidal Anti-inflammatory Drug Start: 12-15-2016 take 1 tablet by mouth at bedtime Aspirin 81 MG tablet,chewable Active 81 mg PO AT BEDTIME December 15, 2016 12:00am Start: 02-08-2015 take 1 tablet by jammie th once daily aspirin, enteric coated (ASPIR-81) 81 mg EC tablet Take 1 tablet by mouth once daily. 100 tablet 0 02/08/2015 Active Comment on above: Take 1 tablet by jammie th once daily. CENTRUM SILVER TAB (20 sources) Start: CENTRUM SILVER TAB Take one(1) tablet daily. 0 06/30/2005 Active Comment on above: Take one(1) tablet d aily. dextromethorphan hydrobromide 30 mg / pyrilamine maleate 30 mg oral tablet (5 sources) Uncompetitive N-uxmrly-O-aspartate Receptor Antagonist, Sigma-1 Agonist Start: take 1 tablet by mouth every six hours as needed pyrilamine-dextrometh orphan (CAPRON DMT) 30-30 mg tab Take 1 tablet by mouth every 6 hours as needed. 30 tablet 11/25/2024 Active ergocalciferol 1.25 mg oral capsule (20 sources) Provitamin D2 Compound Start: 025 End: 025 take 1 capsule by mouth every week ergocalciferol 50,000 unit capsule (VITAMIN D2, DRISDOL) Take 1 capsule by mouth one time a week. 12 capsule 3 12/26/2024 Active Start: 02-05-2023 End: 01-30-2024 take 1 capsule by mouth every week ergocalciferol 50,000 unit capsule (VITAMIN D2, DRISDOL) Take 1 capsule by mouth one time a week. 12 capsule 3 01/30/2024 Active Start: 11-25-2021 End: 02-20-2022 take 1 capsule by mouth every week ergocalciferol 50,000 unit capsule (VITAMIN D2, DRISDOL) Take 1 capsule by mouth one time a week. 12 capsule 11/25/2021 02/20/2022 Discontinued Start: 08-15-2017 Ergocalciferol (Vitamin D2) 27335 U capsule Active 96886 U PO MO August 15, 2017 1:00am Comment on above: Take 1 capsule by mo [facility] one time a week. finasteride 5 mg oral tablet (20 sources) 5-alpha Reductase Inhibitor Start: 07-30-2014 End: 02-25-2024 take 1 tablet by mouth once daily Finasteride 5 MG tablet Active 5 mg PO DAILY December 15, 2016 12:00am Comment on above: Take 1 tablet by jammie once daily. folic acid 0.4 mg oral tablet (20 sources) Start: 12-15-2016 take 1 tablet by mouth once daily Folic Acid 0.4 MG tablet Active 0.4 mg PO DAILY December 15, 2016 12:00am Start: 09-28-2015 take 1 tablet by jammie th once daily folic acid 400 mcg tablet Take 1 tablet by mouth once daily. 0 09/28/2015 Active Comment on above: Take 1 tablet by jammie once daily. lisinopril 40 mg oral tablet (20 sources) Angiotensin Converting Enzyme Inhibitor Start: take 1 tablet by mouth once daily lisinopril (ZESTRIL) 40 mg tablet Indications: Essential hypertension Take 1 tablet by mouth once daily. 90 tablet 3 12/19/2024 Active Start: 05-19-2024 take 1 tablet by jammie th once daily lisinopril (ZESTRIL) 40 mg tablet Indications: Essential hypertension Take 1 tablet by mouth once daily. 90 tablet 1 05/19/2024 Active Start: 05-14-2024 End: 05-19-2024 take 1 tablet by mouth once daily lisinopril (ZESTRIL) 20 mg tablet Indications: Essential hypertension Take 1 tablet by mouth once daily. 30 tablet 5 05/14/2024 05/19/2024 Discontinued (Dosage adjustment) Start: 04-16-2024 End: 05-12-2024 take 2 tablets by mouth once daily lisinopril (ZESTRIL) 10 mg tablet Indications: Essential hypertension Take 2 tablets by mouth once daily. 5 04/16/2024 05/12/2024 Discontinued Start: 04-07-2024 End: 04-16-2024 take 1 tablet by mouth once daily lisinopril (ZESTRIL) 10 mg tablet Indications: Essential hypertension Take 1 tablet by mouth once daily. 30 tablet 5 04/07/2024 04/16/2024 Discontinued Start: 03-03-2024 End: 04-07-2024 take 1 tablet by mouth once daily lisinopril (ZESTRIL) 5 mg tablet Indications: Essential hypertension Take 1 tablet by mouth once daily. 30 tablet 5 03/03/2024 04/07/2024 Discontinued (Dosage adjustment) Eydprmcp-Mbx-Pa-Lycopen-Lute in (2 sources) Start: 12-15-2016 Ygbwyyxg-Uqw-Ig-Lycopen-Lute in Active 1 EACH PO DAILY December 15, 2016 12:00am Usehxqwy-Gwd-Rr-Lycopen-Lute in 1 EACH tablet (3 sources) Start: 12-15-2016 Zrhyxmpk-Pxn-Qc-Lycopen-Lute in 1 EACH tablet Active 1 NMA PO DAILY December 15, 2016 12:00am mupirocin 0.02 mg/mg topical ointment (1 source) RNA Synthe tase Inhibi tor Antiba cteria l Start: 05-25-2023 End: 05-30-2023 mupirocin (BACTROBAN) 2 % ointment Apply to affected area three times a day for 5 days. 22 g 0 05/25/2023 05/30/2023 Active Comment on above: Apply to affected ar ea three times a day for 5 days. tamsulosin hydrochloride 0.4 mg oral capsule (20 sources) alpha- Adrene rgic Herrerae r Start: 06-05-2016 End: 06-09-2024 take 1 capsul e by mouth once daily at bedtim e tamsulosin (FLOMAX) 0.4 mg Take 1 capsule by mouth daily at bedtime. 90 capsule 4 06/10/2024 Active Comment on above: Take 1 capsule by [facility] daily at bedtime. Vitamin B Complex (2 sources) Start: 12-15-2016 Vitamin B Complex Active 1 E ACH PO EVERY MONTH December 15, 2016 12:00am Vitamin B Complex 1 EACH capsule (3 sources) Start: 12-15-2016 Vitamin B Complex 1 EACH capsule Active 1 NMA PO EVERY MONTH December 15, 2016 12:00am vitamin b12 1 mg/ml injectab le solution (20 sources) Vitami n B12 Start: 10-13-2024 End: 09-13-2025 1,000 mcg, INTRAMUSCULAR, EV PEDRO 4 WEEKS, 12 doses, First dose on Sun10/13/24 at 0000, Last dose on Sun08/17/25 at 0000 Start: 10-13-2024 End: 09-13-2025 cyanocobalamin 1,000 mcg inj ection Start: 10-01-2023 End: 09-24-2024 1,000 mcg, INTRAMUSCULAR, EV PEDRO 1 MONTH, 12 doses, First dose on Sun10/01/23 at 0000, Last dose on Sun08/26/24 at 0000 Start: 10-01-2023 End: 09-24-2024 cyanocobalamin 1,000 mcg inj ection Start: 02-25-2019 End: 09-26-2023 cyanocobalamin 1,000 mcg inj ection Problems Active Problems Problem Classification Problem Date Documented Date Episodic/Chronic Aortic; peripheral; and visceral artery aneurysms (20 sources) Aneurysm of ascending aorta; Translations: [Aneurysm of ascending aorta without rupture] Onset: 04-30-2024 04-30-2024 Chronic Biliary tract disease (5 sources) Acute cholecystitis due to biliary calculus; Translations: [Calculus of gallbladder with acute cholecystitis without obstruction] 08-24-2017 Episodic Calculus of urinary tract (5 sources) History of calculus of kidney; Translations: [Personal history of urinary calculi] 08-24-2017 Episodic Cancer of stomach (5 sources) History of malignant neoplasm of stomach; Translations: [Personal history of other malignant neoplasm of stomach] 08-24-2017 Episodic Comment on above: Status post total ga strectomy. Essential hypertension (20 sources) Essential hypertension; Translations: [Essential (primary) hypertension] Onset: 03-05-2009 09-07-2015 Chronic Hyperplasia of prostate (20 sources) Benign prostatic hyperplasia; Translations: [Benign prostatic hyperplasia without lower urinary tract symptoms] Onset: 08-15-2007 Resolved: 07-30-2014 07-30-2014 Chronic Immunizations and screening for infectious disease (6 sources) Vaccination needed; Translations: [Encounter for immunization] Episodic Nutritional deficiencies (20 sources) Vitamin D deficiency; Translations: [Vitamin D deficiency, unspecified] Onset: 07-31-2011 07-31-2011 Chronic Nutritional deficiencies (3 sources) Cobalamin deficiency; Translations: [Deficiency of other specified B group vitamins] Onset: 12-02-2024 12-02-2024 Episodic Open wounds of extremities (1 source) Disorder of lower extremity; Translations: [Unspecified open wound, left lower leg, initial encounter] 05-25-2023 Episodic Other circulatory disease (20 sources) Raynaud's phenomenon; Translations: [Raynaud's syndrome without gangrene] Onset: 07-14-2022 Chronic Other connective tissue disease (1 source) Atrophy of muscle of left lower leg; Translations: [Muscle wasting and atrophy, not elsewhere classified, left lower leg] Episodic Other connective tissue disease (3 sources) Weakness of left leg; Translations: [Other symptoms and signs involving the musculoskeletal system] Onset: 07-14-2022 Episodic Other ear and sense organ disorders (1 source) Impacted cerumen in left ear; Translations: [Impacted cerumen, left ear] Episodic Other lower respiratory disease (2 sources) Wheezing; Translations: [Wheezing] Episodic Other lower respiratory disease (2 sources) Cough; Translations: [Acute cough] 04-14-2024 Episodic Other nervous system disorders (1 source) Numbness of finger; Translations: [Anesthesia of skin] Episodic Other upper respiratory infections (1 source) Viral upper respiratory tract infection; Translations: [Acute upper respiratory infection, unspecified] 11-25-2024 Episodic Unclassified (1 source) Acute cough; Translations: [Acute cough] Onset: 04-14-2024 Viral infection (1 source) Disease caused by 2019-nCoV; Translations: [COVID-19] 04-16-2024 Episodic Past or Other Problems Problem Classification Problem Date Documented Da te Episodic/Chronic Abdominal hernia (20 sources) Inguinal hernia; Translations: [Unilateral inguinal hernia, without obstruction or gangrene, not specified as recurrent] Onset: 10-13-2010 Resolved: 02-23-2014 02-23-2014 Episodic Allergic reactions (20 sources) Solar degeneration; Translations: [Other skin changes due to chronic exposure to nonionizing radiation] Onset: 06-18-2009 Resolved: 09-07-2015 09-07-2015 Episodic Cancer of stomach (20 sources) Malignant tumor of stomach; Translations: [Malignant neoplasm of stomach, unspecified] Onset: 09-04-2007 Resolved: 07-29-2012 07-29-2012 Chronic Deficiency and other anemia (20 sources) Pernicious anemia; Translations: [Vitamin B12 deficiency anemia due to intrinsic factor deficiency] Onset: 09-13-2005 Episodic Deficiency and other anemia (20 sources) Anemia; Translations: [Anemia, unspecified] Resolved: 09-09-2007 09-09-2007 Episodic Deficiency and other anemia (1 source) Vitamin B12 deficiency anemia due to intrinsic factor deficiency; Translations: [Pernicious anemia] Onset: 09-13-2005 Episodic Diabetes mellitus without complication (3 sources) Hyperglycemia; Translations: [Hyperglycemia, unspecified] Onset: 02-25-2024 Episodic Melanomas of skin (20 sources) History of malignant melanoma of the skin; Translations: [Personal history of malignant melanoma of skin] Onset: 06-03-2007 01-12-2017 Episodic Other and unspecified benign neoplasm (20 sources) Benign neoplasm of skin of trunk; Translations: [Other benign neoplasm of skin of trunk] Onset: 06-18-2009 Resolved: 01-12-2017 01-12-2017 Episodic Other and unspecified benign neoplasm (20 sources) Benign neoplasm of skin of face; Translations: [Other benign neoplasm of skin of unspecified part of face] Onset: 06-18-2009 Resolved: 01-12-2017 01-12-2017 Episodic Other and unspecified benign neoplasm (20 sources) Melanocytic nevus of trunk; Translations: [Melanocytic nevi of trunk] Onset: 03-05-2012 Resolved: 01-12-2017 01-12-2017 Episodic Other and unspecified benign neoplasm (20 sources) Dysplastic nevus of trunk; Translations: [Melanocytic nevi of trunk] Onset: 12-31-2012 Resolved: 01-12-2017 01-12-2017 Episodic Other and unspecified benign neoplasm (20 sources) Melanocytic nevus of upper limb; Translations: [Melanocytic nevi of unspecified upper limb, including shoulder] Onset: 12-31-2012 Resolved: 01-12-2017 01-12-2017 Episodic Other and unspecified benign neoplasm (20 sources) Benign neoplasm of skin of shoulder; Translations: [Other benign neoplasm of skin of unspecified upper limb, including shoulder] Onset: 12-31-2012 Resolved: 09-07-2015 09-07-2015 Episodic Other connective tissue disease (20 sources) Other symptoms and signs involving the musculoskeletal system; Translations: [Other musculoskeletal symptoms referable to limbs] Onset: 07-14-2022 07-14-2022 Episodic Other diseases of bladder and urethra (20 sources) Bladder neck obstruction; Translations: [Bladder-neck obstruction] Onset: 08-05-2009 Resolved: 07-30-2014 07-30-2014 Chronic Other diseases of veins and lymphatics (20 sources) Venous insufficiency of leg; Translations: [Venous insufficiency (chronic) (peripheral)] Onset: 01-11-2022 Episodic Other gastrointestinal disorders (20 sources) Retroperitoneal mass; Translations: [Intra-abdominal and pelvic swelling, mass and lump, unspecified site] Onset: 02-04-2015 Resolved: 09-07-2015 09-07-2015 Episodic Other non-epithelial cancer of skin (20 sources) History of malignant neoplasm of skin; Translations: [Personal history of other malignant neoplasm of skin] Onset: 06-18-2009 Resolved: 01-12-2017 01-12-2017 Episodic Other screening for suspected conditions (not mental disorders or infectious disease) (20 sources) Raised prostate specific antigen; Translations: [Elevated prostate specific antigen [PSA]] Onset: 10-22-2006 Resolved: 04-04-2012 07-30-2014 Episodic Other skin disorders (20 sources) Seborrheic keratosis; Translations: [Other seborrheic keratosis] Onset: 06-18-2009 05-16-2011 Episodic Other skin disorders (20 sources) Solar lentigo; Translations: [Other melanin hyperpigmentation] Onset: 06-18-2009 Resolved: 09-07-2015 09-07-2015 Episodic Other skin disorders (20 sources) Scar conditions and fibrosis of skin; Translations: [Scar conditions and fibrosis of skin] Onset: 06-18-2009 Resolved: 09-07-2015 09-07-2015 Episodic Other skin disorders (20 sources) Inflamed seborrheic keratosis; Translations: [Inflamed seborrheic keratosis] Onset: 03-05-2012 Resolved: 09-07-2015 09-07-2015 Episodic Pleurisy; pneumothorax; pulmonary collapse (4 sources) Pleural effusion; Translations: [Pleural effusion, not elsewhere classified] Onset: 05-14-2024 04-14-2024 Episodic Results Test Name Value Interpretation Reference Range Facility [facility] 02-02-[address] [facility] Nurse Visit (FAMPWS) -------- HERIBERTO PEÑALOZA Ynes ([id number]) 1950 M NFR Date Time Provider Department 02/02/25 9:15 AM [facility] NURSE [facility] During your visit today, we recorded the following information about you: RAMONITA TREVINO 02/02/2025 9:18 AM Signed Patient presents for B-12 injection. Denies any problems at this time. Patient instructed on any SE of medication, verbalized understanding and agreed to proceed with treatment. Tolerated injection well. Ramonita Trevino LPN Allergies As of Date: 02/02/2025 Noted Allergy Reaction POLYSPORIN (BACITRACIN-POLYMYXIN *07/15/2007 2 - Rash Date Reviewed: 11/25/2024 Reviewed by: Negra Ugalde, DAMAGE PREVENTION COORDINATOR.FILM CUTTER - Fully Assessed Reason for Visit: B-12 Injection [247] Primary Visit Diagnosis:Vitamin B12 deficiency [E53.8] Prescriptions as of 02/02/2025 - ergocalciferol 50,000 unit capsule (VITAMIN D2, DRISDOL) Take 1 capsule by mouth one time a week. - lisinopril (ZESTRIL) 40 mg tablet Take 1 tablet by mouth once daily. - pyrilamine-dextromethorp pacheco (CAPRON DMT) 30-30 mg tab Take 1 tablet by mouth every 6 hours as needed. - tamsulosin (FLOMAX) 0.4 mg Take 1 capsule by mouth daily at bedtime. - amLODIPine (NORVASC) 10 mg tablet Take 1 tablet by mouth once daily. - folic acid 400 mcg tablet Take 1 tablet by mouth once daily. - aspirin, enteric coated (ASPIR-81) 81 mg EC tablet Take 1 tablet by mouth once daily. - CENTRUM SILVER TAB Take one(1) tablet daily. Facility-Administered Medications as of 02/02/2025 - cyanocobalamin 1,000 mcg injection Meds Comments as of 02/08/2015: Patient is not currently taking all prescribed medication due to recent surgery. Problem List As Of Date 02/02/2025 Noted Resolved PERNICIOUS ANEMIA [D51.0] 09/13/2005 Elevated prostate specific antigen (PSA) [R97.2*10/22/2006 04/04/2012 ANEMIA NOS [D64.9] 09/09/2007 H/O MALIGNANT MELANOMA/PERS HX MALIG SKIN MELAN*06/03/2007 BPH W URINARY OBS/LUTS [N40.1, N13.8] 08/15/2007 07/30/2014 Malignant neoplasm of stomach, unspecified site*09/04/2007 07/29/2012 Routine general medical examination at [facility]*02/01/2009 09/07/2015 Essential hypertension [I10] 03/05/2009 Melanocytic Nevi/ Benign Neoplasm of Skin of Tr*06/18/2009 01/12/2017 NEVI FACE///Benign Neoplasm of Skin [D23.30] 06/18/2009 01/12/2017 Other Seborrheic Keratoses [L82.1] 06/18/2009 Solar Lentigines [L81.4] 06/18/2009 09/07/2015 Actnic Damage//Sun-Damaged Skin [L57.8] 06/18/2009 09/07/2015 H/O BCC//// of Other Malignant Neoplasm [Z85.82*06/18/2009 01/12/2017 Scar condition and fibrosis of skin [L90.5] 06/18/2009 09/07/2015 Bladder neck obstruction [N32.0] 08/05/2009 07/30/2014 Inguinal hernia [K40.90] 10/13/2010 02/23/2014 Vitamin D deficiency [E55.9] 07/31/2011 Irritated//Inflamed Seborrheic Keratosis [L82.0]03/05/2012 09/07/2015 Melanocytic Nevi of trunk: Junctional and Intra*03/05/2012 01/12/2017 Atypical nevus of abdominal wall [D22.5] 12/31/2012 01/12/2017 Melanocytic nevi of upper extremity or shoulder*12/31/2012 01/12/2017 Dermatofibroma of shoulder [D23.60] 12/31/2012 09/07/2015 BPH (benign prostatic hyperplasia) [N40.0] 07/30/2014 Elevated PSA [R97.20] 07/30/2014 Retroperitoneal mass [R19.00] 02/04/2015 09/07/2015 Venous insufficiency of both lower extremities *01/11/2022 Left leg weakness [R29.898] 07/14/2022 Raynaud's phenomenon without gangrene [I73.00] 07/14/2022 Aneurysm of ascending aorta without rupture (HC*04/30/2024 Encounter Status:Closed by RAMONITA TREVINO on 02/02/25 Normal [facility] Bone Scan Whole Bodyon 01-[address] [facility] Imaging Services [address] [place] [address] [id number] Bone Scan Whole Body MR#: [id number] Acct: [id number] Name: HERIBERTO PEÑALOZA Ynes Hurtado Rep #: [id number] : 1950 M 74 From: Sumeet Strong PCP: Dr. Piyush Rivera MD Status: REG CLI Study: Bone Scan Whole Body Date of Exam: 01/08/25 Exam# [id number] Ordering Dr: Torsten Gregg MD PROCEDURE: BONE SCAN WHOLE BODY 01/08/2025 REASON FOR EXAM: ELEVATED PROSTATE SPECIFIC ANTIGEN TECHNIQUE: Anterior and posterior body bone scan performed after radiopharmaceutical administration RADIOPHARMACEUTICAL: 28 mCi Technetium-99m MDP IV COMPARISON: CORRELATION WITH EXISTING RELEVANT IMAGING STUDIES (i.e. x-ray, MRI, CT, etc.): No existing relevant imaging study available , patient did not have a previous relevant imaging study. FINDINGS: Mild thoracolumbar dextroscoliosis is noted Degenerative changes are seen of the knees, spine, and bilateral 1st carpal-metacarpal joints. No findings are seen to suggest the presence of osseous metastatic disease. NM/Bone Scan Whole Body IMPRESSION: No scintigraphic evidence of osseous metastatic disease Reading Location: [place] [address] CC: Dr. Torsten Gregg MD; Dr. Piyush Rivera MD Licensed Psychologist: Signed Normal [facility] Surgical pathology reportOrd ered By: Monserrat Manzano on 01-07-2025 Surgical pathology study [facility] CNNURSEon 01-05-2025 [facility] Nurse Visit (FAMPWS) -------- HERIBERTO PEÑALOZA ([id number]) 1950 M NFR Date Time Provider Department 01/05/25 9:15 AM MA NURSE [facility] During your visit today, we recorded the following information about you: RAMONITA TREVINO 01/05/2025 9:28 AM Signed Patient presents for B-12 injection. Denies any problems at this time. Patient instructed on any SE of medication, verbalized understanding and agreed to proceed with treatment. Tolerated injection well. Ramonita Trevino LPN Allergies As of Date: 01/05/2025 Noted Allergy Reaction POLYSPORIN (BACITRACIN-POLYMYXIN *07/15/2007 2 - Rash Date Reviewed: 11/25/2024 Reviewed by: Negra Ugalde, DAMAGE PREVENTION COORDINATOR.FILM CUTTER - Fully Assessed Reason for Visit: B-12 Injection [247] Primary Visit Diagnosis:Pernicious anemia [D51.0] Prescriptions as of 01/05/2025 - ergocalciferol 50,000 unit capsule (VITAMIN D2, DRISDOL) Take 1 capsule by mouth one time a week. - lisinopril (ZESTRIL) 40 mg tablet Take 1 tablet by mouth once daily. - pyrilamine-dextromethorp pacheco (CAPRON DMT) 30-30 mg tab Take 1 tablet by mouth every 6 hours as needed. - tamsulosin (FLOMAX) 0.4 mg Take 1 capsule by mouth daily at bedtime. - amLODIPine (NORVASC) 10 mg tablet Take 1 tablet by mouth once daily. - folic acid 400 mcg tablet Take 1 tablet by mouth once daily. - aspirin, enteric coated (ASPIR-81) 81 mg EC tablet Take 1 tablet by mouth once daily. - CENTRUM SILVER TAB Take one(1) tablet daily. Facility-Administered Medications as of 01/05/2025 - cyanocobalamin 1,000 mcg injection Meds Comments as of 02/08/2015: Patient is not currently taking all prescribed medication due to recent surgery. Problem List As Of Date 01/05/2025 Noted Resolved PERNICIOUS ANEMIA [D51.0] 09/13/2005 Elevated prostate specific antigen (PSA) [R97.2*10/22/2006 04/04/2012 ANEMIA NOS [D64.9] 09/09/2007 H/O MALIGNANT MELANOMA/PERS HX MALIG SKIN MELAN*06/03/2007 BPH W URINARY OBS/LUTS [N40.1, N13.8] 08/15/2007 07/30/2014 Malignant neoplasm of stomach, unspecified site*09/04/2007 07/29/2012 Routine general medical examination at [facility]*02/01/2009 09/07/2015 Essential hypertension [I10] 03/05/2009 Melanocytic Nevi/ Benign Neoplasm of Skin of Tr*06/18/2009 01/12/2017 NEVI FACE///Benign Neoplasm of Skin [D23.30] 06/18/2009 01/12/2017 Other Seborrheic Keratoses [L82.1] 06/18/2009 Solar Lentigines [L81.4] 06/18/2009 09/07/2015 Actnic Damage//Sun-Damaged Skin [L57.8] 06/18/2009 09/07/2015 H/O BCC//// of Other Malignant Neoplasm [Z85.82*06/18/2009 01/12/2017 Scar condition and fibrosis of skin [L90.5] 06/18/2009 09/07/2015 Bladder neck obstruction [N32.0] 08/05/2009 07/30/2014 Inguinal hernia [K40.90] 10/13/2010 02/23/2014 Vitamin D deficiency [E55.9] 07/31/2011 Irritated//Inflamed Seborrheic Keratosis [L82.0]03/05/2012 09/07/2015 Melanocytic Nevi of trunk: Junctional and Intra*03/05/2012 01/12/2017 Atypical nevus of abdominal wall [D22.5] 12/31/2012 01/12/2017 Melanocytic nevi of upper extremity or shoulder*12/31/2012 01/12/2017 Dermatofibroma of shoulder [D23.60] 12/31/2012 09/07/2015 BPH (benign prostatic hyperplasia) [N40.0] 07/30/2014 Elevated PSA [R97.20] 07/30/2014 Retroperitoneal mass [R19.00] 02/04/2015 09/07/2015 Venous insufficiency of both lower extremities *01/11/2022 Left leg weakness [R29.898] 07/14/2022 Raynaud's phenomenon without gangrene [I73.00] 07/14/2022 Aneurysm of ascending aorta without rupture (HC*04/30/2024 Encounter Status:Closed by RAMONITA TREVINO on 01/05/25 Normal [facility] PROSTATE BXon 01-05-2025 PROSTATE BX ---- Patient Age/Sex Location Account Attending Physician HERIBERTO PEÑALOZA Jr. 74/M LABSPEC [id number] Dr. Torsten Gregg MD Specimen: Received: 01/05/25 Status: JOSELO [place] Num: [id number] Spec Type: PROST BX Subm Dr: Dr. Torsten Gregg MD HEADER OPERATION: Prostate biopsy PRE-OP DIAGNOSIS: Elevated PSA TISSUE SUBMITTED: A - Right apex, B - Right mid, C - Right base, D - Left apex, E - Left mid, F - Left base MICROSCOPIC DIAGNOSIS A. Prostate, right apex, biopsy: * Benign prostatic tissue B. Prostate, right mid, biopsy: * Benign prostatic tissue C. Prostate, right base, biopsy: * Benign prostatic tissue D. Prostate, left apex, biopsy: * Benign prostatic tissue E. Prostate, left mid, biopsy: * Benign prostatic tissue F. Prostate, left base, biopsy: * Benign prostatic tissue MICROSCOPIC DESCRIPTION Slides are reviewed. GROSS DESCRIPTION A. Received in formalin in a container labeled with the patient's name, date of , and RA is a 0.8 x 0.1 cm thin and wispy core biopsy of soft tissue. Submitted in toto in A1. B. Received in formalin in a container labeled with the patient's name, date of , and RM is a 1.0 x 0.1 cm white and wispy core biopsy of soft tissue. Submitted in toto in B1. C. Received in formalin in a container labeled with the patient's name, date of , and RB is a 1.3 x 0.1 cm core biopsy of white and wispy soft tissue. Submitted in toto in C1. D. Received in formalin in a container labeled with the patient's name, date of , and LA is a 1.4 x 0.1 cm thin and wispy core biopsy of soft tissue. Submitted in toto in D1. E. Received in formalin in a container labeled with the patient's name, date of , and Patient Age/Sex Location Account Attending Physician HERIBERTO PEÑALOZA Jr. 74/M LABSPEC [id number] Dr. Torsten Gregg MD LM is a 1.0 x 0.1 cm white and wispy core biopsy of soft tissue. Submitted in toto in E1. F. Received in formalin in a container labeled with the patient's name, date of , and LB is a 1.3 x 0.1 cm white and wispy core biopsy of soft tissue. Submitted in toto in F1. [facility] 01-06-2025 CPT: G0146 Patient Age/Sex Location Account Attending Physician HERIBERTO PEÑALOZA Jr. 74/M LABSPEC [id number] Dr. Torsten Gregg MD Signed (signature on file) Dr. Monserrat Manzano DO 01/07/25 1041 Normal [facility] Comment on above: Performed By: #### P PROSB #### [facility] [address] [place], [address] Pelvis W/WO Contraston 12-25 Pelvis W/WO Contrast [facility] [address] [place] [address] Pelvis W/WO Contrast MR#: [id number] Acct: [id number] Name: HERIBERTO PEÑALOZA Jr. Rep #: [id number] : 1950 M 74 From: Aries Tomas MD PCP: Dr. Piyush Rivera MD Status: REG CLI Study: Pelvis W/WO Contrast Date of Exam: 12/25/24 Exam# [id number] Ordering Dr: Torsten Gregg MD PROCEDURE: PELVIS W/WO CONTRAST (MRIPELWW), 12/25/2024 REASON FOR EXAM: ELEVATED PSA. PSA reportedly 17.0 per technologist report. TECHNIQUE: Multisequence multiplanar MRI pelvis was performed with and without IV contrast. CONTRAST: 15 mL Clariscan COMPARISON: None FINDINGS: Variable overall mild motion limitation. A few sequences are moderately motion degraded. Prostate size: 7.1 x 5.7 x 7.8 cm, estimated volume 164 mL. Per the above provided PSA, PSA density is 0.104 ng/mL. Transition zone: PI-RADS 2 findings. Peripheral Zone: Minimal background changes of likely prostatitis (PI-RADS 2). Neurovascular bundles: Unremarkable. Seminal vesicles: Unremarkable. Bladder: Underdistended and suboptimally evaluated. Mass-effect by the enlarged prostate with appearance suggestive of chronic bladder outlet obstruction. Lymph nodes: Borderline mildly enlarged RIGHT inguinal node, 14 mm short axis. Enlarged RIGHT posterolateral mesorectal node measures 13 x 7 mm. Bones: Diffusely heterogeneous marrow signal. Ill-defined suspicious enhancement and restricted diffusion in the RIGHT superior pubic ramus spanning 3.2 cm. Additional areas of small restricted diffusion in the anterior acetabuli bilaterally without measurable correlate in some areas. Tiny foci of enhancement in the anterior RIGHT sacrum abutting the SI joint of 2 7 mm could be degenerative. Lumbar spondylosis. Other: None. MRI/Pelvis W/WO Contrast IMPRESSION: 1. Marked prostatomegaly and sequela of minimal likely prostatitis without high risk lesion identified (PI-RADS 2). 2. Findings suspicious for pelvic bony metastasis in light of reported history of malignancy, largest lesion in the RIGHT pubic bone measures 3.2 cm with some being difficult to discretely measure. A few tiny foci of enhancement in the RIGHT sacrum adjacent the SI joint may be degenerative. Clinical/oncologic follow-up recommended. 3. Enlarged RIGHT posterolateral mesorectal node is nonspecific and may be reactive in the absence of known rectal neoplasm, however given the context, close follow-up is warranted. 4. Borderline mildly enlarged RIGHT inguinal node. Attention on follow-up. 5. Additional description as above. Reading Location: [id number] CC: Dr. Torsten Gregg MD; Dr. Piyush Rivera MD Licensed Psychologist: [facility]igned [facility] [facility] Nurse Visit (FAMPWS) -------- HERIBERTO PEÑALOZA ([id number]) 1950 M NFR Date Time Provider Department 12/02/24 11:15 AM [facility] During your visit today, we recorded the following information about you: Usha Alexander LPN 12/02/2024 10:58 AM Signed Patient presents for B-12 injection. Denies any problems at this time. Patient instructed on any SE of medication, verbalized understanding and agreed to proceed with treatment. Tolerated injection well. Usha Alexander LPN Allergies As of Date: 12/02/2024 Noted Allergy Reaction POLYSPORIN (BACITRACIN-POLYMYXIN *07/15/2007 2 - Rash Date Reviewed: 11/25/2024 Reviewed by: Negra Ugalde, DAMAGE PREVENTION COORDINATOR.FILM CUTTER - Fully Assessed Primary Visit Diagnosis:Vitamin B12 deficiency [E53.8] Prescriptions as of 12/02/2024 - pyrilamine-dextromethorp pacheco (CAPRON DMT) 30-30 mg tab Take 1 tablet by mouth every 6 hours as needed. - tamsulosin (FLOMAX) 0.4 mg Take 1 capsule by mouth daily at bedtime. - lisinopril (ZESTRIL) 40 mg tablet Take 1 tablet by mouth once daily. - amLODIPine (NORVASC) 10 mg tablet Take 1 tablet by mouth once daily. - ergocalciferol 50,000 unit capsule (VITAMIN D2, DRISDOL) Take 1 capsule by mouth one time a week. - folic acid 400 mcg tablet Take 1 tablet by mouth once daily. - aspirin, enteric coated (ASPIR-81) 81 mg EC tablet Take 1 tablet by mouth once daily. - CENTRUM SILVER TAB Take one(1) tablet daily. Facility-Administered Medications as of 12/02/2024 - cyanocobalamin 1,000 mcg injection Meds Comments as of 02/08/2015: Patient is not currently taking all prescribed medication due to recent surgery. Problem List As Of Date 12/02/2024 Noted Resolved PERNICIOUS ANEMIA [D51.0] 09/13/2005 Elevated prostate specific antigen (PSA) [R97.2*10/22/2006 04/04/2012 ANEMIA NOS [D64.9] 09/09/2007 H/O MALIGNANT MELANOMA/PERS HX MALIG SKIN MELAN*06/03/2007 BPH W URINARY OBS/LUTS [N40.1, N13.8] 08/15/2007 07/30/2014 Malignant neoplasm of stomach, unspecified site*09/04/2007 07/29/2012 Routine general medical examination at [facility]*02/01/2009 09/07/2015 Essential hypertension [I10] 03/05/2009 Melanocytic Nevi/ Benign Neoplasm of Skin of Tr*06/18/2009 01/12/2017 NEVI FACE///Benign Neoplasm of Skin [D23.30] 06/18/2009 01/12/2017 Other Seborrheic Keratoses [L82.1] 06/18/2009 Solar Lentigines [L81.4] 06/18/2009 09/07/2015 Actnic Damage//Sun-Damaged Skin [L57.8] 06/18/2009 09/07/2015 H/O BCC//// of Other Malignant Neoplasm [Z85.82*06/18/2009 01/12/2017 Scar condition and fibrosis of skin [L90.5] 06/18/2009 09/07/2015 Bladder neck obstruction [N32.0] 08/05/2009 07/30/2014 Inguinal hernia [K40.90] 10/13/2010 02/23/2014 Vitamin D deficiency [E55.9] 07/31/2011 Irritated//Inflamed Seborrheic Keratosis [L82.0]03/05/2012 09/07/2015 Melanocytic Nevi of trunk: Junctional and Intra*03/05/2012 01/12/2017 Atypical nevus of abdominal wall [D22.5] 12/31/2012 01/12/2017 Melanocytic nevi of upper extremity or shoulder*12/31/2012 01/12/2017 Dermatofibroma of shoulder [D23.60] 12/31/2012 09/07/2015 BPH (benign prostatic hyperplasia) [N40.0] 07/30/2014 Elevated PSA [R97.20] 07/30/2014 Retroperitoneal mass [R19.00] 02/04/2015 09/07/2015 Venous insufficiency of both lower extremities *01/11/2022 Left leg weakness [R29.898] 07/14/2022 Raynaud's phenomenon without gangrene [I73.00] 07/14/2022 Aneurysm of ascending aorta without rupture (HC*04/30/2024 Encounter Status:Closed by USHA ALEXANDER on 12/02/24 [facility] CNOVon 11-25-2024 CNOV Office Visit (INTMWS ) -------- HERIBERTO PEÑALOZA ([id number]) 1950 M NFR Date Time Provider Department 11/25/24 8:20 AM NEGRA UGALDE INTMWS During your visit today, we recorded the following information about you: Temperature Pulse Respiration Blood pressure 98.7 degrees 74/minute 14/minute 132/80 Weight 74.8 kg Negra Ugalde, DAMAGE PREVENTION COORDINATOR.FILM CUTTER 11/25/2024 8:35 AM Signed - Prescription for a combination medication with a cough suppressant and antihistamine sent to [facility] pharmacy. - Drink plenty of fluids to help break up thick drainage. - Use a humidifier at night to alleviate coughing. - Let me know on Sunday if you are not feeling any better Negra Ugalde, BLANCO.FILM CUTTER 11/25/2024 8:38 AM Signed CC: Patient presents with: Chest Congestion: Cough x 4 days HPI The patient consented to the use of ambient AI software for draft documentation of the visit consistent with [facility]?s Notice of Privacy Practices. Cough: - Onset: Sunday, four days ago. - Described as horrible during coughing fits, with sensation deep in the chest. - Associated with postnasal drainage; unable to expectorate sputum. - Denies dyspnea, fever, chills, headache, or decreased appetite. - Sore throat has improved. - Energy level remains consistent with baseline. - No known exposure to sick contacts. - Denies history of asthma or other respiratory issues. - Has not performed any home COVID-19 tests. 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 BPH (benign prostatic hyperplasia) 07/30/2014 Cholelithiasis and acute cholecystitis without obstruction 08/16/2017 Elevated PSA 07/30/2014 Essential hypertension 03/05/2009 H/O MALIGNANT MELANOMA/PERS HX MALIG SKIN MELANOMA 06/03/2007 HYPERTENSION NOS 03/05/2009 Hypertrophy of prostate with urinary obstruction and other lower urinary tract symptoms (LUTS) 08/15/2007 Internal hemorrhoids without mention of complication MALIG NEOPL STOMACH NOS 09/04/2007 Pernicious anemia 09/13/2005 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 Ureterolithiasis 01/02/2017 right Venous insufficiency of both lower extremities 01/11/2022 PAST SURGICAL HISTORY Procedure Laterality Date COLONOSCOPY FLX DX W/COLLJ SPEC WHEN PFRMD 11/27/2006 COLONOSCOPY FLX DX W/COLLJ SPEC WHEN PFRMD 12/25/2014 COLONOSCOPY FLX DX W/COLLJ SPEC WHEN PFRMD 04/21/2020 Colonoscopy CYSTOSCOPY,URETEROSCOPY, LITHOTRIPSY Right 01/10/2017 Stent placement, removal, 01/10/17; 01/03/17 ESOPHAGOGASTRODUODENOSCO PY TRANSORAL DIAGNOSTIC 11/27/2006 LAPS SURG CHOLECYSTECTOMY W/CHOLANGIOGRAPHY 08/16/2017 [facility] PAST SURGICAL HISTORY OF November Total gastrectomy- stomach CA, Trudi n Y jejunostomy PAST SURGICAL HISTORY OF Left 1989 left knee arthroscopy, PAST SURGICAL HISTORY OF Right 02/04/2015 Retroperitoneal cyst excision PROSTATE BIOPSY W/TRANSRECTAL US 04/29/2019 RPR 1ST INGUN HRNA AGE 5 YRS/> REDUCIBLE 10/03/2010 RIGHT SHOULDER SURGERY HX Right 2019 ALLERGIES Polysporin [Bacitracin-Polymyxin B] MEDICATIONS tamsulosin (FLOMAX) 0.4 mgTake 1 capsule by mouth daily at bedtime.Disp: 90 capsuleRfl: 4 lisinopril (ZESTRIL) 40 mg tabletTake 1 tablet by mouth once daily.Disp: 90 tabletRfl: 1 amLODIPine (NORVASC) 10 mg tabletTake 1 tablet by mouth once daily.Disp: 90 tabletRfl: 3 ergocalciferol 50,000 unit capsule (VITAMIN D2, DRISDOL)Take 1 capsule by mouth one time a week.Disp: 12 capsuleRfl: 3 folic acid 400 mcg tabletTake 1 tablet by mouth once daily.Disp: Rfl: 0 aspirin, enteric coated (ASPIR-81) 81 mg EC tabletTake 1 tablet by mouth once daily.Disp: 100 tabletRfl: 0 CENTRUM SILVER TABTake one(1) tablet daily.Disp: Rfl: 0 pyrilamine-dextromethorp pacheco (CAPRON DMT) 30-30 mg tabTake 1 tablet by mouth every 6 hours as needed.Disp: 30 tabletRfl: 0 FAMILY HISTORY Problem Relation Age of Onset None Father failure to thrive None Mother failure to thrive Social History Tobacco Use Smoking status: Never Smokeless tobacco: Never Vaping Use Vaping status: Never Used Substance Use Topics Alcohol use: Yes Alcohol/week: 8.0 standard drinks of alcohol Types: 8 Glasses of Wine (5oz) per week Drug use: No Comment: not usually BP 132/80 Pulse 74 Temp 37.1 ?C (98.7 ?F) (Temporal) Resp 14 Wt 74.8 kg (165 lb) SpO2 98% BMI 23.51 kg/m? Physical Exam Vitals reviewed. Constitutional: General: He is not in acute distress. Appearance: He is ill-appearing. He is not toxic-appearing. HENT: Head: Normocephalic and atraumatic. Nose: Rhinorrhea present. No congestion. Mouth/Throat: Mouth: Mucous membranes are moist. Pharynx: Oropharynx is clear. Eyes: Conjunctiva/sclera: Conjunctivae normal. Cardiovascular: Rate and Rhythm: Normal rate and regular rhythm. (more content not included)... [facility] [facility] -------- HERIBERTO PEÑALOZA Ynes ([id number]) 1950 M NFR Date Time Provider Department 11/10/24 9:15 AM [facility] During your visit today, we recorded the following information about you: RAMONITA TREVINO 11/10/2024 9:18 AM Signed Patient presents for B-12 injection. Denies any problems at this time. Patient instructed on any SE of medication, verbalized understanding and agreed to proceed with treatment. Tolerated injection well. Ramonita Trevino LPN Allergies As of Date: 11/10/2024 Noted Allergy Reaction POLYSPORIN (BACITRACIN-POLYMYXIN *07/15/2007 2 - Rash Date Reviewed: 08/28/2024 Reviewed by: Fatou Rodriguez LPN - Fully Assessed Reason for Visit: B-12 Injection [247] Primary Visit Diagnosis:Pernicious anemia [D51.0] Prescriptions as of 11/10/2024 - tamsulosin (FLOMAX) 0.4 mg Take 1 capsule by mouth daily at bedtime. - lisinopril (ZESTRIL) 40 mg tablet Take 1 tablet by mouth once daily. - amLODIPine (NORVASC) 10 mg tablet Take 1 tablet by mouth once daily. - ergocalciferol 50,000 unit capsule (VITAMIN D2, DRISDOL) Take 1 capsule by mouth one time a week. - folic acid 400 mcg tablet Take 1 tablet by mouth once daily. - aspirin, enteric coated (ASPIR-81) 81 mg EC tablet Take 1 tablet by mouth once daily. - CENTRUM SILVER TAB Take one(1) tablet daily. Facility-Administered Medications as of 11/10/2024 - cyanocobalamin 1,000 mcg injection Meds Comments as of 02/08/2015: Patient is not currently taking all prescribed medication due to recent surgery. Problem List As Of Date 11/10/2024 Noted Resolved PERNICIOUS ANEMIA [D51.0] 09/13/2005 Elevated prostate specific antigen (PSA) [R97.2*10/22/2006 04/04/2012 ANEMIA NOS [D64.9] 09/09/2007 H/O MALIGNANT MELANOMA/PERS HX MALIG SKIN MELAN*06/03/2007 BPH W URINARY OBS/LUTS [N40.1, N13.8] 08/15/2007 07/30/2014 Malignant neoplasm of stomach, unspecified site*09/04/2007 07/29/2012 Routine general medical examination at [facility]*02/01/2009 09/07/2015 Essential hypertension [I10] 03/05/2009 Melanocytic Nevi/ Benign Neoplasm of Skin of Tr*06/18/2009 01/12/2017 NEVI FACE///Benign Neoplasm of Skin [D23.30] 06/18/2009 01/12/2017 Other Seborrheic Keratoses [L82.1] 06/18/2009 Solar Lentigines [L81.4] 06/18/2009 09/07/2015 Actnic Damage//Sun-Damaged Skin [L57.8] 06/18/2009 09/07/2015 H/O BCC//// of Other Malignant Neoplasm [Z85.82*06/18/2009 01/12/2017 Scar condition and fibrosis of skin [L90.5] 06/18/2009 09/07/2015 Bladder neck obstruction [N32.0] 08/05/2009 07/30/2014 Inguinal hernia [K40.90] 10/13/2010 02/23/2014 Vitamin D deficiency [E55.9] 07/31/2011 Irritated//Inflamed Seborrheic Keratosis [L82.0]03/05/2012 09/07/2015 Melanocytic Nevi of trunk: Junctional and Intra*03/05/2012 01/12/2017 Atypical nevus of abdominal wall [D22.5] 12/31/2012 01/12/2017 Melanocytic nevi of upper extremity or shoulder*12/31/2012 01/12/2017 Dermatofibroma of shoulder [D23.60] 12/31/2012 09/07/2015 BPH (benign prostatic hyperplasia) [N40.0] 07/30/2014 Elevated PSA [R97.20] 07/30/2014 Retroperitoneal mass [R19.00] 02/04/2015 09/07/2015 Venous insufficiency of both lower extremities *01/11/2022 Left leg weakness [R29.898] 07/14/2022 Raynaud's phenomenon without gangrene [I73.00] 07/14/2022 Aneurysm of ascending aorta without rupture (HC*04/30/2024 Encounter Status:Closed by RAMONITA TREVINO on 11/10/24 Normal [facility] PSA Total+%Freeon 11-09-2024 PSA, FREE 3.97 ng/mL Normal N/A [facility] Comment on above: Result Comment: Ba DICK methodology. Performed By: #### L [id number] #### [facility] [address] [place], [address] PSA, FREE % 23.2 Normal . [facility] Comment on above: Result Comment: The table below lists the probability of prostate cancer for men with non-suspicious ALFONZO results and total PSA between 4 and 10 ng/mL, by patient age (Lazaro et al, SAMUEL 1998, 279:1542). % Free PSA 50-64 yr 65-75 yr 0.00-10.00% 56% 55% 10.01-15.00% 24% 35% 15.01-20.00% 17% 23% 20.01-25.00% 10% 20% >25.00% 5% 9% Please note: Lazaro et al did not make specific recommendations regarding the use of percent free PSA for any other population of men. Performed at: [facility] [address] [place] [id number] Floor And Wall Applier Liquid: Jimmy Kelly PhD, Phone: [phone] Performed By: #### L [id number] #### [facility] [address] [place], [address] PSA, TOTAL ULTR 17.100 ng/mL Abnormal 0.000-4.000 [facility] Comment on above: Result Comment: Ba zaragoza ECLIA methodology. According to the [employer], Serum PSA should decrease and remain at undetectable levels after radical prostatectomy. The AUA defines biochemical recurrence as an initial PSA value 0.200 ng/mL or greater followed by a subsequent confirmatory PSA value 0.200 ng/mL or greater. Values obtained with different assay methods or kits cannot be used interchangeably. Results cannot be interpreted as absolute evidence of the presence or absence of malignant disease. Performed By: #### L [id number] #### [facility] [address] [place], [address] Free PSA/Total PSA [Mass fra ction]Ordered By: Torsten Gregg on 11-06-2024 % Free Prostate Specific Ag Calc 23.2 % . [facility] Comment on above: The table below list s the probability of prostate cancer formen with non-suspicious ALFONZO results and total PSA between4 and 10 ng/mL, by patient age (Lazaro et al, SAMUEL 1998,279:1542). % Free PSA 50-64 yr 65-75 yr 0.00-10.00% 56% 55% 10.01-15.00% 24% 35% 15.01-20.00% 17% 23% 20.01-25.00% 10% 20% >25.00% 5% 9%Please note: Lazaro et al did not make specific recommendations regarding the use of percent free PSA for any other population of men.Performed at: [facility] [address] [id number] Director: Jimmy Kelly PhD, Phone: [phone] Free prostate specific antig en (PSA) measurementOrdered By: Torsten Gregg on 11-06-2024 Free Prostate Specific Antigen 3.97 ng/mL N/A [facility] Comment on above: [employer] ECLIA methodol ogy. PSA, totalOrdered By: Torsten rivas on 11-06-2024 Prostate Specific Ag, Ultra-Sensitv 17.100 ng/mL High 0.000-4.000 [facility] Comment on above: [employer] ECLIA methodol ogy.According to the [employer], Serum PSAshould decrease and remain at undetectable levels afterradical prostatectomy. The AUA defines biochemicalrecurrence as an initial PSA value 0.200 ng/mL or greaterfollowed by a subsequent confirmatory PSA value 0.200 ng/mLor greater. Values obtained with different assay methods orkits cannot be used interchangeably. Results cannot beinterpreted as absolute evidence of the presence or absenceof malignant disease. Serum or plasma free prostat e specific antigen (PSA)/total PSA mass ratioOrdered By: Torsten Gregg on 11-06-2024 Free PSA/Total PSA [Mass fraction] 23.2 % . [facility] Comment on above: The table below list s the probability of prostate cancer formen with non-suspicious ALFONZO results and total PSA between4 and 10 ng/mL, by patient age (Lazaro et al, SAMUEL 1998,279:1542). % Free PSA 50-64 yr 65-75 yr 0.00-10.00% 56% 55% 10.01-15.00% 24% 35% 15.01-20.00% 17% 23% 20.01-25.00% 10% 20% >25.00% 5% 9%Please note: Lazaro et al did not make specific recommendations regarding the use of percent free PSA for any other population of men.Performed at: [facility] [employer] [id number] Director: Jimmy Kelly PhD, Phone: [phone] Diagnostic total prostate sp ecific antigen (PSA) measurementOrdered By: Michelle Ely on 10-28-2024 Prostate Specific Antigen Total 17.70 ng/mL High 0.00-4.00 [facility] Comment on above: This test was perfor med using the [employer] tPSA method. Measured values of a patient sample can vary depending on the testing procedure used. PSA values determined on patient samples by different testing procedures cannot be used interchangeably. If there is a change in PSA assays while monitoring therapy, sequential testing should be performed to confirm baseline values. PSA,Total- [employer]icon PSA, DIAGNOSTIC 17.70 ng/mL High 0.00-4.00 [facility] Comment on above: Result Comment: This test was performed using the [employer] tPSA method. Measured values of a patient??sample can vary depending on the testing procedure used. PSA values determined on patient samples by different testing procedures cannot be used interchangeably. If there is a change in PSA assays while monitoring therapy, sequential testing should be performed to confirm baseline values. Performed By: #### L [phone] #### [facility] [address] [place], [address] CNNURSEon 10-13-[address] [facility] Nurse Visit (FAMPWS) -------- HERIBERTO PEÑALOZA ([id number]) 1950 M NFR Date Time Provider Department 10/13/24 9:15 AM [facility] During your visit today, we recorded the following information about you: RAMONITA TREVINO 10/13/2024 9:18 AM Signed Patient presents for B-12 injection. Denies any problems at this time. Patient instructed on any SE of medication, verbalized understanding and agreed to proceed with treatment. Tolerated injection well. Ramonita Trevino LPN Allergies As of Date: 10/13/2024 Noted Allergy Reaction POLYSPORIN (BACITRACIN-POLYMYXIN *07/15/2007 2 - Rash Date Reviewed: 08/28/2024 Reviewed by: Fatou Rodriguez LPN - Fully Assessed Reason for Visit: B-12 Injection [247] Primary Visit Diagnosis:Pernicious anemia [D51.0] Prescriptions as of 10/13/2024 - tamsulosin (FLOMAX) 0.4 mg Take 1 capsule by mouth daily at bedtime. - lisinopril (ZESTRIL) 40 mg tablet Take 1 tablet by mouth once daily. - amLODIPine (NORVASC) 10 mg tablet Take 1 tablet by mouth once daily. - ergocalciferol 50,000 unit capsule (VITAMIN D2, DRISDOL) Take 1 capsule by mouth one time a week. - folic acid 400 mcg tablet Take 1 tablet by mouth once daily. - aspirin, enteric coated (ASPIR-81) 81 mg EC tablet Take 1 tablet by mouth once daily. - CENTRUM SILVER TAB Take one(1) tablet daily. Facility-Administered Medications as of 10/13/2024 - cyanocobalamin 1,000 mcg injection Meds Comments as of 02/08/2015: Patient is not currently taking all prescribed medication due to recent surgery. Problem List As Of Date 10/13/2024 Noted Resolved PERNICIOUS ANEMIA [D51.0] 09/13/2005 Elevated prostate specific antigen (PSA) [R97.2*10/22/2006 04/04/2012 ANEMIA NOS [D64.9] 09/09/2007 H/O MALIGNANT MELANOMA/PERS HX MALIG SKIN MELAN*06/03/2007 BPH W URINARY OBS/LUTS [N40.1, N13.8] 08/15/2007 07/30/2014 Malignant neoplasm of stomach, unspecified site*09/04/2007 07/29/2012 Routine general medical examination at [facility]*02/01/2009 09/07/2015 Essential hypertension [I10] 03/05/2009 Melanocytic Nevi/ Benign Neoplasm of Skin of Tr*06/18/2009 01/12/2017 NEVI FACE///Benign Neoplasm of Skin [D23.30] 06/18/2009 01/12/2017 Other Seborrheic Keratoses [L82.1] 06/18/2009 Solar Lentigines [L81.4] 06/18/2009 09/07/2015 Actnic Damage//Sun-Damaged Skin [L57.8] 06/18/2009 09/07/2015 H/O BCC//// of Other Malignant Neoplasm [Z85.82*06/18/2009 01/12/2017 Scar condition and fibrosis of skin [L90.5] 06/18/2009 09/07/2015 Bladder neck obstruction [N32.0] 08/05/2009 07/30/2014 Inguinal hernia [K40.90] 10/13/2010 02/23/2014 Vitamin D deficiency [E55.9] 07/31/2011 Irritated//Inflamed Seborrheic Keratosis [L82.0]03/05/2012 09/07/2015 Melanocytic Nevi of trunk: Junctional and Intra*03/05/2012 01/12/2017 Atypical nevus of abdominal wall [D22.5] 12/31/2012 01/12/2017 Melanocytic nevi of upper extremity or shoulder*12/31/2012 01/12/2017 Dermatofibroma of shoulder [D23.60] 12/31/2012 09/07/2015 BPH (benign prostatic hyperplasia) [N40.0] 07/30/2014 Elevated PSA [R97.20] 07/30/2014 Retroperitoneal mass [R19.00] 02/04/2015 09/07/2015 Venous insufficiency of both lower extremities *01/11/2022 Left leg weakness [R29.898] 07/14/2022 Raynaud's phenomenon without gangrene [I73.00] 07/14/2022 Aneurysm of ascending aorta without rupture (HC*04/30/2024 Encounter Status:Closed by RAMONITA TREVINO on 10/13/24 [facility] 09-24-2024 CNPN Telephone (INTMWS) -------- HERIBERTO PEÑALOZA ([id number]) 1950 M NFR Date Time Provider Department 09/24/24 PIYUSH RIVERA INTWS During your visit today, we recorded the following information about you: Ramonita Trevino LPN 09/24/2024 2:17 PM Signed Patient scheduled for nurse visit 10/13/24 to receive B-[address] order at this time. Ramonita Trevino LPN Allergies As of Date: 09/24/2024 Noted Allergy Reaction POLYSPORIN (BACITRACIN-POLYMYXIN *07/15/2007 2 - Rash Date Reviewed: 08/28/2024 Reviewed by: Fatou Rodriguez LPN - Fully Assessed Reason for Visit: Orders [681] Primary Visit Diagnosis:Pernicious anemia [D51.0] Order(s):[START ON 10/13/2024] cyanocobalamin 1,000 mcg injectionDisp: Rfl: Prescriptions as of 09/25/2024 - tamsulosin (FLOMAX) 0.4 mg Take 1 capsule by mouth daily at bedtime. - lisinopril (ZESTRIL) 40 mg tablet Take 1 tablet by mouth once daily. - amLODIPine (NORVASC) 10 mg tablet Take 1 tablet by mouth once daily. - ergocalciferol 50,000 unit capsule (VITAMIN D2, DRISDOL) Take 1 capsule by mouth one time a week. - folic acid 400 mcg tablet Take 1 tablet by mouth once daily. - aspirin, enteric coated (ASPIR-81) 81 mg EC tablet Take 1 tablet by mouth once daily. - CENTRUM SILVER TAB Take one(1) tablet daily. Facility-Administered Medications as of 09/25/2024 - cyanocobalamin 1,000 mcg injection Meds Comments as of 02/08/2015: Patient is not currently taking all prescribed medication due to recent surgery. Problem List As Of Date 09/24/2024 Noted Resolved PERNICIOUS ANEMIA [D51.0] 09/13/2005 Elevated prostate specific antigen (PSA) [R97.2*10/22/2006 04/04/2012 ANEMIA NOS [D64.9] 09/09/2007 H/O MALIGNANT MELANOMA/PERS HX MALIG SKIN MELAN*06/03/2007 BPH W URINARY OBS/LUTS [N40.1, N13.8] 08/15/2007 07/30/2014 Malignant neoplasm of stomach, unspecified site*09/04/2007 07/29/2012 Routine general medical examination at [facility]*02/01/2009 09/07/2015 Essential hypertension [I10] 03/05/2009 Melanocytic Nevi/ Benign Neoplasm of Skin of Tr*06/18/2009 01/12/2017 NEVI FACE///Benign Neoplasm of Skin [D23.30] 06/18/2009 01/12/2017 Other Seborrheic Keratoses [L82.1] 06/18/2009 Solar Lentigines [L81.4] 06/18/2009 09/07/2015 Actnic Damage//Sun-Damaged Skin [L57.8] 06/18/2009 09/07/2015 H/O BCC//// of Other Malignant Neoplasm [Z85.82*06/18/2009 01/12/2017 Scar condition and fibrosis of skin [L90.5] 06/18/2009 09/07/2015 Bladder neck obstruction [N32.0] 08/05/2009 07/30/2014 Inguinal hernia [K40.90] 10/13/2010 02/23/2014 Vitamin D deficiency [E55.9] 07/31/2011 Irritated//Inflamed Seborrheic Keratosis [L82.0]03/05/2012 09/07/2015 Melanocytic Nevi of trunk: Junctional and Intra*03/05/2012 01/12/2017 Atypical nevus of abdominal wall [D22.5] 12/31/2012 01/12/2017 Melanocytic nevi of upper extremity or shoulder*12/31/2012 01/12/2017 Dermatofibroma of shoulder [D23.60] 12/31/2012 09/07/2015 BPH (benign prostatic hyperplasia) [N40.0] 07/30/2014 Elevated PSA [R97.20] 07/30/2014 Retroperitoneal mass [R19.00] 02/04/2015 09/07/2015 Venous insufficiency of both lower extremities *01/11/2022 Left leg weakness [R29.898] 07/14/2022 Raynaud's phenomenon without gangrene [I73.00] 07/14/2022 Aneurysm of ascending aorta without rupture (HC*04/30/2024 Prescriptions ordered this encounter Disp Refills Start End CYANOCOBALAMIN (VIT B-12) 1,000 MCG/* 10/13/2024 09/13/2025 Route: INTRAMUSCULA Encounter Status:[facility]FAMPWS[facility] -------- HERIBERTO PEÑALOZA ([id number]) 1950 M NFR Date Time Provider Department 09/08/24 8:45 AM MA NURSE BLU During your visit today, we recorded the following information about you: Ramonita Trevino LPN 09/08/2024 8:47 AM Signed Patient presents for B-12 injection. Denies any problems at this time. Patient instructed on any SE of medication, verbalized understanding and agreed to proceed with treatment. Tolerated injection well. Ramonita Trevino LPN Allergies As of Date: 09/08/2024 Noted Allergy Reaction POLYSPORIN (BACITRACIN-POLYMYXIN *07/15/2007 2 - Rash Date Reviewed: 08/28/2024 Reviewed by: Fatou Rodriguez LPN - Fully Assessed Reason for Visit: B-12 Injection [247] Primary Visit Diagnosis:Pernicious anemia [D51.0] Prescriptions as of 09/08/2024 - tamsulosin (FLOMAX) 0.4 mg Take 1 capsule by mouth daily at bedtime. - lisinopril (ZESTRIL) 40 mg tablet Take 1 tablet by mouth once daily. - amLODIPine (NORVASC) 10 mg tablet Take 1 tablet by mouth once daily. - ergocalciferol 50,000 unit capsule (VITAMIN D2, DRISDOL) Take 1 capsule by mouth one time a week. - folic acid 400 mcg tablet Take 1 tablet by mouth once daily. - aspirin, enteric coated (ASPIR-81) 81 mg EC tablet Take 1 tablet by mouth once daily. - CENTRUM SILVER TAB Take one(1) tablet daily. Meds Comments as of 02/08/2015: Patient is not currently taking all prescribed medication due to recent surgery. Problem List As Of Date 09/08/2024 Noted Resolved PERNICIOUS ANEMIA [D51.0] 09/13/2005 Elevated prostate specific antigen (PSA) [R97.2*10/22/2006 04/04/2012 ANEMIA NOS [D64.9] 09/09/2007 H/O MALIGNANT MELANOMA/PERS HX MALIG SKIN MELAN*06/03/2007 BPH W URINARY OBS/LUTS [N40.1, N13.8] 08/15/2007 07/30/2014 Malignant neoplasm of stomach, unspecified site*09/04/2007 07/29/2012 Routine general medical examination at [facility]*02/01/2009 09/07/2015 Essential hypertension [I10] 03/05/2009 Melanocytic Nevi/ Benign Neoplasm of Skin of Tr*06/18/2009 01/12/2017 NEVI FACE///Benign Neoplasm of Skin [D23.30] 06/18/2009 01/12/2017 Other Seborrheic Keratoses [L82.1] 06/18/2009 Solar Lentigines [L81.4] 06/18/2009 09/07/2015 Actnic Damage//Sun-Damaged Skin [L57.8] 06/18/2009 09/07/2015 H/O BCC//// of Other Malignant Neoplasm [Z85.82*06/18/2009 01/12/2017 Scar condition and fibrosis of skin [L90.5] 06/18/2009 09/07/2015 Bladder neck obstruction [N32.0] 08/05/2009 07/30/2014 Inguinal hernia [K40.90] 10/13/2010 02/23/2014 Vitamin D deficiency [E55.9] 07/31/2011 Irritated//Inflamed Seborrheic Keratosis [L82.0]03/05/2012 09/07/2015 Melanocytic Nevi of trunk: Junctional and Intra*03/05/2012 01/12/2017 Atypical nevus of abdominal wall [D22.5] 12/31/2012 01/12/2017 Melanocytic nevi of upper extremity or shoulder*12/31/2012 01/12/2017 Dermatofibroma of shoulder [D23.60] 12/31/2012 09/07/2015 BPH (benign prostatic hyperplasia) [N40.0] 07/30/2014 Elevated PSA [R97.20] 07/30/2014 Retroperitoneal mass [R19.00] 02/04/2015 09/07/2015 Venous insufficiency of both lower extremities *01/11/2022 Left leg weakness [R29.898] 07/14/2022 Raynaud's phenomenon without gangrene [I73.00] 07/14/2022 Aneurysm of ascending aorta without rupture (HC*04/30/2024 Encounter Status:Closed by RAMONITA TREVINO on 09/08/24 Normal [facility] CNOVon 08-28-2024 CNOV Office Visit (INTMWS ) -------- HERIBERTO PEÑALOZA ([id number]) 1950 M NFR Date Time Provider Department 08/28/24 1:40 PM PIYUSH RIVERA INTMWS During your visit today, we recorded the following information about you: Temperature Pulse Respiration Blood pressure 98.2 degrees 72/minute 18/minute 118/68 Weight 75.7 kg Piyush Rivera MD 08/28/2024 2:17 PM Signed This note was created using [employer]. Subjective Heriberto Peñaloza is a 74 year old male. He was doing well. Hypertension was controlled. He was at the end of a minor upper respiratory infection. He was at the end of low back strain related to chores. Left leg weakness was mild and stable. Review of Systems Constitutional: Negative for fatigue and fever. HENT: Negative for congestion. Respiratory: Positive for cough. Negative for shortness of breath and wheezing. Cardiovascular: Negative for chest pain, palpitations and leg swelling. Neurological: Negative. ACTIVE PROBLEM LIST Pernicious Anemia H/O MALIGNANT MELANOMA/PERS HX MALIG SKIN MELANOMA Essential Hypertension Other Seborrheic Keratoses Vitamin D Deficiency Bph (Benign Prostatic Hyperplasia) Elevated Psa Venous Insufficiency of Both Lower Extremities Left Leg Weakness Raynaud's Phenomenon Without Gangrene Aneurysm of Ascending Aorta Without Rupture (Hcc) Social History Tobacco Use Smoking status: Never Smokeless tobacco: Never Vaping Use Vaping status: Never Used Substance Use Topics Alcohol use: Yes Alcohol/week: 8.0 standard drinks of alcohol Types: 8 Glasses of Wine (5oz) per week Drug use: No Comment: not usually Current Outpatient Medications Medication Sig tamsulosin (FLOMAX) 0.4 mg Take 1 capsule by mouth daily at bedtime. lisinopril (ZESTRIL) 40 mg tablet Take 1 tablet by mouth once daily. amLODIPine (NORVASC) 10 mg tablet Take 1 tablet by mouth once daily. ergocalciferol 50,000 unit capsule (VITAMIN D2, DRISDOL) Take 1 capsule by mouth one time a week. folic acid 400 mcg tablet Take 1 tablet by mouth once daily. aspirin, enteric coated (ASPIR-81) 81 mg EC tablet Take 1 tablet by mouth once daily. CENTRUM SILVER TAB Take one(1) tablet daily. amLODIPine (NORVASC) 10 mg tablet Take 1 tablet by mouth once daily for 14 days. Current Facility-Administered Medications Medication Dose Route Frequency cyanocobalamin 1,000 mcg injection 1,000 mcg INTRAMUSCULAR q 1 MONTH Objective BP 118/68 (BP Site: Left Arm, BP Position: Sitting, BP Cuff Size: Large Adult) Pulse 72 Temp 36.8 ?C (98.2 ?F) (Temporal) Resp 18 Wt 75.7 kg (166 lb 14.2 oz) BMI 23.78 kg/m? Physical Exam HENT: Nose: No rhinorrhea. Cardiovascular: Rate and Rhythm: Normal rate and regular rhythm. Heart sounds: No murmur heard. No gallop. Pulmonary: Effort: No respiratory distress. Breath sounds: No wheezing or rales. Comments: Transient rhonchi, right mid lung. Musculoskeletal: Right lower leg: No edema. Left lower leg: No edema. Neurological: Mental Status: He is alert. Assessment and Plan 1. Essential hypertension - ICD9: 401.9, ICD10: I10 (primary diagnosis) - Controlled - Continue current medications - LIPID PANEL BASIC - COMPREHENSIVE METABOLIC PANEL 2. Encounter for immunization - ICD9: V03.89, ICD10: Z23 - [employer] COVID-19 VACCINE AGE 12+ YR (COMIRNATY) 3. Pernicious anemia - ICD9: 281.0, ICD10: D51.0 - Supplemented. - COMPLETE BLOOD COUNT - VITAMIN B12 4. Vitamin D deficiency - ICD9: 268.9, ICD10: E55.9 - supplemented. Piyush Rivera MD Allergies As of Date: 08/28/2024 Noted Allergy Reaction POLYSPORIN (BACITRACIN-POLYMYXIN *07/15/2007 2 - Rash Date Reviewed: 08/28/2024 Reviewed by: Fatou Rodriguez LPN - Fully Assessed Reason for Visit: F/U 6 months [1177] Primary Visit Diagnosis:Essential hypertension [I10] Other Visit Diagnoses:Encounter for immunization [Z23] Pernicious anemia [D51.0] Vitamin D deficiency [E55.9] Order(s):[employer] COVID-19 VACCINE AGE 12+ YR (MANDEEP) [[id number]] Order #: [id number] COMPLETE BLOOD COUNT [SQCBC] Order #: [id number] FUTURE VITAMIN B12 [SQB12] Order #: [id number] FUTURE LIPID PANEL BASIC [SQLIPB] Order #: [id number] FUTURE COMPREHENSIVE METABOLIC PANEL [SQCMP] Order #: [id number] FUTURE Prescriptions as of 08/28/2024 - tamsulosin (FLOMAX) 0.4 mg Take 1 capsule by mouth daily at bedtime. - lisinopril (ZESTRIL) 40 mg tablet Take 1 tablet by mouth once daily. - amLODIPine (NORVASC) 10 mg tablet Take 1 tablet by mouth once daily. - ergocalciferol 50,000 unit capsule (VITAMIN D2, DRISDOL) Take 1 capsule by mouth one time a week. - folic acid 400 mcg tablet Take 1 tablet by mouth once daily. - aspirin, enteric coated (ASPIR-81) 81 mg EC tablet Take 1 tablet by mouth once daily. - CENTRUM SILVER TAB Take one(1) tablet daily. Facility-Adm (more content not included)... Normal [facility] 08-11-[address] [facility] Nurse Visit (FAMPWS) -------- HERIBERTO PEÑALOZA ([id number]) 1950 M NFR Date Time Provider Department 08/11/24 9:15 AM MA NURSE FAMPWS During your visit today, we recorded the following information about you: Ramonita Trevino LPN 08/11/2024 9:43 AM Signed Patient presents for B-12 injection. Denies any problems at this time. Patient instructed on any SE of medication, verbalized understanding and agreed to proceed with treatment. Tolerated injection well. Ramonita Trevino LPN Allergies As of Date: 08/11/2024 Noted Allergy Reaction POLYSPORIN (BACITRACIN-POLYMYXIN *07/15/2007 2 - Rash Date Reviewed: 05/19/2024 Reviewed by: Fatou Rodriguez LPN - Fully Assessed Reason for Visit: B-12 Injection [247] Primary Visit Diagnosis:Pernicious anemia [D51.0] Prescriptions as of 08/11/2024 - tamsulosin (FLOMAX) 0.4 mg Take 1 capsule by mouth daily at bedtime. - amLODIPine (NORVASC) 10 mg tablet Take 1 tablet by mouth once daily for 14 days. - lisinopril (ZESTRIL) 40 mg tablet Take 1 tablet by mouth once daily. - amLODIPine (NORVASC) 10 mg tablet Take 1 tablet by mouth once daily. - ergocalciferol 50,000 unit capsule (VITAMIN D2, DRISDOL) Take 1 capsule by mouth one time a week. - folic acid 400 mcg tablet Take 1 tablet by mouth once daily. - aspirin, enteric coated (ASPIR-81) 81 mg EC tablet Take 1 tablet by mouth once daily. - CENTRUM SILVER TAB Take one(1) tablet daily. Facility-Administered Medications as of 08/11/2024 - cyanocobalamin 1,000 mcg injection Meds Comments as of 02/08/2015: Patient is not currently taking all prescribed medication due to recent surgery. Problem List As Of Date 08/11/2024 Noted Resolved PERNICIOUS ANEMIA [D51.0] 09/13/2005 Elevated prostate specific antigen (PSA) [R97.2*10/22/2006 04/04/2012 ANEMIA NOS [D64.9] 09/09/2007 H/O MALIGNANT MELANOMA/PERS HX MALIG SKIN MELAN*06/03/2007 BPH W URINARY OBS/LUTS [N40.1, N13.8] 08/15/2007 07/30/2014 Malignant neoplasm of stomach, unspecified site*09/04/2007 07/29/2012 Routine general medical examination at [facility]*02/01/2009 09/07/2015 Essential hypertension [I10] 03/05/2009 Melanocytic Nevi/ Benign Neoplasm of Skin of Tr*06/18/2009 01/12/2017 NEVI FACE///Benign Neoplasm of Skin [D23.30] 06/18/2009 01/12/2017 Other Seborrheic Keratoses [L82.1] 06/18/2009 Solar Lentigines [L81.4] 06/18/2009 09/07/2015 Actnic Damage//Sun-Damaged Skin [L57.8] 06/18/2009 09/07/2015 H/O BCC//// of Other Malignant Neoplasm [Z85.82*06/18/2009 01/12/2017 Scar condition and fibrosis of skin [L90.5] 06/18/2009 09/07/2015 Bladder neck obstruction [N32.0] 08/05/2009 07/30/2014 Inguinal hernia [K40.90] 10/13/2010 02/23/2014 Vitamin D deficiency [E55.9] 07/31/2011 Irritated//Inflamed Seborrheic Keratosis [L82.0]03/05/2012 09/07/2015 Melanocytic Nevi of trunk: Junctional and Intra*03/05/2012 01/12/2017 Atypical nevus of abdominal wall [D22.5] 12/31/2012 01/12/2017 Melanocytic nevi of upper extremity or shoulder*12/31/2012 01/12/2017 Dermatofibroma of shoulder [D23.60] 12/31/2012 09/07/2015 BPH (benign prostatic hyperplasia) [N40.0] 07/30/2014 Elevated PSA [R97.20] 07/30/2014 Retroperitoneal mass [R19.00] 02/04/2015 09/07/2015 Venous insufficiency of both lower extremities *01/11/2022 Left leg weakness [R29.898] 07/14/2022 Raynaud's phenomenon without gangrene [I73.00] 07/14/2022 Aneurysm of ascending aorta without rupture (HC*04/30/2024 Encounter Status:Closed by RAMONITA TREVINO on 08/11/24 [facility] [facility] Nurse Visit (FAMPWS) -------- HERIBERTO PEÑALOZA ([id number]) 1950 M NFR Date Time Provider Department 07/07/24 9:15 AM MA NURSE BLU During your visit today, we recorded the following information about you: Pulse Blood pressure 83/minute 135/70 Ramonita Trevino LPN 07/07/2024 9:05 AM Signed Patient presents for B-12 injection. Denies any problems at this time. Patient instructed on any SE of medication, verbalized understanding and agreed to proceed with treatment. Tolerated injection well. Ramonita Trevino LPN Allergies As of Date: 07/07/2024 Noted Allergy Reaction POLYSPORIN (BACITRACIN-POLYMYXIN *07/15/2007 2 - Rash Date Reviewed: 05/19/2024 Reviewed by: Fatou Rodriguez LPN - Fully Assessed Reason for Visit: B-12 Injection [247] Primary Visit Diagnosis:Pernicious anemia [D51.0] Prescriptions as of 07/07/2024 - tamsulosin (FLOMAX) 0.4 mg Take 1 capsule by mouth daily at bedtime. - amLODIPine (NORVASC) 10 mg tablet Take 1 tablet by mouth once daily for 14 days. - lisinopril (ZESTRIL) 40 mg tablet Take 1 tablet by mouth once daily. - amLODIPine (NORVASC) 10 mg tablet Take 1 tablet by mouth once daily. - ergocalciferol 50,000 unit capsule (VITAMIN D2, DRISDOL) Take 1 capsule by mouth one time a week. - folic acid 400 mcg tablet Take 1 tablet by mouth once daily. - aspirin, enteric coated (ASPIR-81) 81 mg EC tablet Take 1 tablet by mouth once daily. - CENTRUM SILVER TAB Take one(1) tablet daily. Facility-Administered Medications as of 07/07/2024 - cyanocobalamin 1,000 mcg injection Meds Comments as of 02/08/2015: Patient is not currently taking all prescribed medication due to recent surgery. Problem List As Of Date 07/07/2024 Noted Resolved PERNICIOUS ANEMIA [D51.0] 09/13/2005 Elevated prostate specific antigen (PSA) [R97.2*10/22/2006 04/04/2012 ANEMIA NOS [D64.9] 09/09/2007 H/O MALIGNANT MELANOMA/PERS HX MALIG SKIN MELAN*06/03/2007 BPH W URINARY OBS/LUTS [N40.1, N13.8] 08/15/2007 07/30/2014 Malignant neoplasm of stomach, unspecified site*09/04/2007 07/29/2012 Routine general medical examination at [facility]*02/01/2009 09/07/2015 Essential hypertension [I10] 03/05/2009 Melanocytic Nevi/ Benign Neoplasm of Skin of Tr*06/18/2009 01/12/2017 NEVI FACE///Benign Neoplasm of Skin [D23.30] 06/18/2009 01/12/2017 Other Seborrheic Keratoses [L82.1] 06/18/2009 Solar Lentigines [L81.4] 06/18/2009 09/07/2015 Actnic Damage//Sun-Damaged Skin [L57.8] 06/18/2009 09/07/2015 H/O BCC//// of Other Malignant Neoplasm [Z85.82*06/18/2009 01/12/2017 Scar condition and fibrosis of skin [L90.5] 06/18/2009 09/07/2015 Bladder neck obstruction [N32.0] 08/05/2009 07/30/2014 Inguinal hernia [K40.90] 10/13/2010 02/23/2014 Vitamin D deficiency [E55.9] 07/31/2011 Irritated//Inflamed Seborrheic Keratosis [L82.0]03/05/2012 09/07/2015 Melanocytic Nevi of trunk: Junctional and Intra*03/05/2012 01/12/2017 Atypical nevus of abdominal wall [D22.5] 12/31/2012 01/12/2017 Melanocytic nevi of upper extremity or shoulder*12/31/2012 01/12/2017 Dermatofibroma of shoulder [D23.60] 12/31/2012 09/07/2015 BPH (benign prostatic hyperplasia) [N40.0] 07/30/2014 Elevated PSA [R97.20] 07/30/2014 Retroperitoneal mass [R19.00] 02/04/2015 09/07/2015 Venous insufficiency of both lower extremities *01/11/2022 Left leg weakness [R29.898] 07/14/2022 Raynaud's phenomenon without gangrene [I73.00] 07/14/2022 Aneurysm of ascending aorta without rupture (HC*04/30/2024 Encounter Status:Closed [facility]INO [facility] [facility] Nurse Visit (FAMPWS) -------- HERIBERTO PEÑALOZA ([id number]) 1950 M NFR Date Time Provider Department 06/09/24 9:45 AM [facility] your visit today, we recorded the following information about you: Ramonita Trevino LPN 06/09/2024 9:45 AM Signed Patient presents for B-12 injection. Denies any problems at this time. Patient instructed on any SE of medication, verbalized understanding and agreed to proceed with treatment. Tolerated injection well. Ramonita Trevino LPN Allergies As of Date: 06/09/2024 Noted Allergy Reaction POLYSPORIN (BACITRACIN-POLYMYXIN *07/15/2007 2 - Rash Date Reviewed: 05/19/2024 Reviewed by: Fatou Rodriguez LPN - Fully Assessed Reason for Visit: B-12 Injection [247] Primary Visit Diagnosis:Pernicious anemia [D51.0] Prescriptions as of 06/09/2024 - lisinopril (ZESTRIL) 40 mg tablet Take 1 tablet by mouth once daily. - amLODIPine (NORVASC) 10 mg tablet Take 1 tablet by mouth once daily. - ergocalciferol 50,000 unit capsule (VITAMIN D2, DRISDOL) Take 1 capsule by mouth one time a week. - tamsulosin ER (FLOMAX) 0.4 mg cp24 Take 1 capsule by mouth daily at bedtime. - folic acid 400 mcg tablet Take 1 tablet by mouth once daily. - aspirin, enteric coated (ASPIR-81) 81 mg EC tablet Take 1 tablet by mouth once daily. - CENTRUM SILVER TAB Take one(1) tablet daily. Facility-Administered Medications as of 06/09/2024 - cyanocobalamin 1,000 mcg injection Meds Comments as of 02/08/2015: Patient is not currently taking all prescribed medication due to recent surgery. Problem List As Of Date 06/09/2024 Noted Resolved PERNICIOUS ANEMIA [D51.0] 09/13/2005 Elevated prostate specific antigen (PSA) [R97.2*10/22/2006 04/04/2012 ANEMIA NOS [D64.9] 09/09/2007 H/O MALIGNANT MELANOMA/PERS HX MALIG SKIN MELAN*06/03/2007 BPH W URINARY OBS/LUTS [N40.1, N13.8] 08/15/2007 07/30/2014 Malignant neoplasm of stomach, unspecified site*09/04/2007 07/29/2012 Routine general medical examination at [facility]*02/01/2009 09/07/2015 Essential hypertension [I10] 03/05/2009 Melanocytic Nevi/ Benign Neoplasm of Skin of Tr*06/18/2009 01/12/2017 NEVI FACE///Benign Neoplasm of Skin [D23.30] 06/18/2009 01/12/2017 Other Seborrheic Keratoses [L82.1] 06/18/2009 Solar Lentigines [L81.4] 06/18/2009 09/07/2015 Actnic Damage//Sun-Damaged Skin [L57.8] 06/18/2009 09/07/2015 H/O BCC//// of Other Malignant Neoplasm [Z85.82*06/18/2009 01/12/2017 Scar condition and fibrosis of skin [L90.5] 06/18/2009 09/07/2015 Bladder neck obstruction [N32.0] 08/05/2009 07/30/2014 Inguinal hernia [K40.90] 10/13/2010 02/23/2014 Vitamin D deficiency [E55.9] 07/31/2011 Irritated//Inflamed Seborrheic Keratosis [L82.0]03/05/2012 09/07/2015 Melanocytic Nevi of trunk: Junctional and Intra*03/05/2012 01/12/2017 Atypical nevus of abdominal wall [D22.5] 12/31/2012 01/12/2017 Melanocytic nevi of upper extremity or shoulder*12/31/2012 01/12/2017 Dermatofibroma of shoulder [D23.60] 12/31/2012 09/07/2015 BPH (benign prostatic hyperplasia) [N40.0] 07/30/2014 Elevated PSA [R97.20] 07/30/2014 Retroperitoneal mass [R19.00] 02/04/2015 09/07/2015 Venous insufficiency of both lower extremities *01/11/2022 Left leg weakness [R29.898] 07/14/2022 Raynaud's phenomenon without gangrene [I73.00] 07/14/2022 Aneurysm of ascending aorta without rupture (HC*04/30/2024 Encounter Status:Closed by RAMONITA TREVINO on 06/09/24 [facility] CNOVon 05-19-2024 CNOV Office Visit (INTMWS ) -------- HERIBERTO PEÑALOZA ([id number]) 1950 M NFR Date Time Provider Department 05/19/24 3:00 PM PIYUSH RIVERA INTMWS During your visit today, we recorded the following information about you: Temperature Pulse Blood pressure Weight 97 degrees 71/minute 135/72 75.1 kg Piyush Rivera MD 05/19/2024 3:30 PM Signed This note was created using NoteWriter. Subjective Heriberto Peñaloza is a 73 year old male. He had Covid and cough resolved. CXR normalized. Echo was essentially unremarkable and thoracic aorta size was unchanged compared to 2015. Review of Systems Constitutional: Negative for fatigue. Respiratory: Negative for cough and shortness of breath. Cardiovascular: Negative for chest pain. Musculoskeletal: Negative. Neurological: Negative. ACTIVE PROBLEM LIST Pernicious Anemia H/O MALIGNANT MELANOMA/PERS HX MALIG SKIN MELANOMA Essential Hypertension Other Seborrheic Keratoses Vitamin D Deficiency Bph (Benign Prostatic Hyperplasia) Elevated Psa Venous Insufficiency of Both Lower Extremities Left Leg Weakness Raynaud's Phenomenon Without Gangrene Aneurysm of Ascending Aorta Without Rupture (Hcc) Social History Tobacco Use Smoking status: Never Smokeless tobacco: Never Vaping Use Vaping status: Never Used Substance Use Topics Alcohol use: Yes Alcohol/week: 8.0 standard drinks of alcohol Types: 8 Glasses of Wine (5oz) per week Drug use: No Comment: not usually Current Outpatient Medications Medication Sig lisinopril (ZESTRIL) 20 mg tablet Take 1 tablet by mouth once daily. amLODIPine (NORVASC) 10 mg tablet Take 1 tablet by mouth once daily. ergocalciferol 50,000 unit capsule (VITAMIN D2, DRISDOL) Take 1 capsule by mouth one time a week. tamsulosin ER (FLOMAX) 0.4 mg cp24 Take 1 capsule by mouth daily at bedtime. folic acid 400 mcg tablet Take 1 tablet by mouth once daily. aspirin, enteric coated (ASPIR-81) 81 mg EC tablet Take 1 tablet by mouth once daily. CENTRUM SILVER TAB Take one(1) tablet daily. Current Facility-Administered Medications Medication Dose Route Frequency cyanocobalamin 1,000 mcg injection 1,000 mcg INTRAMUSCULAR q 1 MONTH Objective BP 135/72 (BP Site: Left Arm, BP Position: Sitting, BP Cuff Size: Large Adult) Pulse 71 Temp 36.1 ?C (97 ?F) (Temporal) Wt 75.1 kg (165 lb 9.1 oz) SpO2 98% BMI 23.59 kg/m? Physical Exam Constitutional: Appearance: Normal appearance. Cardiovascular: Rate and Rhythm: Normal rate and regular rhythm. Heart sounds: No murmur heard. No gallop. Pulmonary: Breath sounds: Normal breath sounds. Test results pertinent to today's visit were reviewed and discussed with the patient. Assessment and Plan 1. Essential hypertension - ICD9: 401.9, ICD10: I10 (primary diagnosis) - Improving control - Increase lisinopril - Recommend home blood pressure monitoring, to bring results to next visit - LISINOPRIL 40 MG TABLET 2. Need for influenza vaccination - ICD9: V04.81, ICD10: Z23 - INFLUENZA VACCINE, PRSV FREE, AGE 65+ YR, HIGH DOSE, TRIVALENT (FLUZONE HIGH-DOSE) 3. Aneurysm of ascending aorta without rupture (HCC) - ICD9: 441.2, ICD10: I71.21 Stable. Piyush Rivera MD Allergies As of Date: 05/19/2024 Noted Allergy Reaction POLYSPORIN (BACITRACIN-POLYMYXIN *07/15/2007 2 - Rash Date Reviewed: 05/19/2024 Reviewed by: Fatou Rodriguez LPN - Fully Assessed Reason for Visit: Urgent Care follow-up [Other] Immunizations [194] Cmt: Flu vaccination Primary Visit Diagnosis:Essential hypertension [I10] Other Visit Diagnoses:Need for influenza vaccination [Z23] Aneurysm of ascending aorta without rupture (HCC) [I71.21] Order(s):INFLUENZA VACCINE, PRSV FREE, AGE 65+ YR, HIGH DOSE, TRIVALENT (FLUZONE HIGH-DOSE) [[id number]] Order #: [id number] lisinopril (ZESTRIL) 40 mg tabletTake 1 tablet by mouth once daily.Disp: 90 tabletRfl: 1 Prescriptions as of 05/19/2024 - lisinopril (ZESTRIL) 40 mg tablet Take 1 tablet by mouth once daily. - amLODIPine (NORVASC) 10 mg tablet Take 1 tablet by mouth once daily. - ergocalciferol 50,000 unit capsule (VITAMIN D2, DRISDOL) Take 1 capsule by mouth one time a week. - tamsulosin ER (FLOMAX) 0.4 mg cp24 Take 1 capsule by mouth daily at bedtime. - folic acid 400 mcg tablet Take 1 tablet by mouth once daily. - aspirin, enteric coated (ASPIR-81) 81 mg EC tablet Take 1 tablet by mouth once daily. - CENTRUM SILVER TAB Take one(1) tablet daily. Facility-Administered Medications as of 05/19/2024 - cyanocobalamin 1,000 mcg injection Meds Comments as of 02/08/2015: Patient is not currently taking all prescribed medication due to recent surgery. Problem List As Of Date 05/19/2024 Noted Resolved PERNICIOUS ANEMIA [D51.0] 09/13/2005 Elevated prostate specific antigen (PSA) [R97.2*10/22/2006 04/04/2012 ANEMIA NOS [D64.9] (more content not included)... [facility] CNPRadha 05-19-2024 [facility] Telephone (INTMWS) -------- HERIBERTO PEÑALOZA ([id number]) 1950 M NFR Date Time Provider Department 05/19/24 PIYUSH RIVERA During your visit today, we recorded the following information about you: Ruth De León LPN 05/19/2024 9:37 AM Signed ----- Message from Piyush Rivera MD sent at 05/17/2024 3:57 PM EDT ----- chest X-ray within normal limits. Rtuh De León LPN 05/19/2024 9:39 AM Signed Phoned patient left message to return call and ask to speak to a nurse. Fatou Rodriguez LPN 05/19/2024 12:29 PM Signed Patient notified. Fatou Rodriguez LPN Allergies As of Date: 05/19/2024 Noted Allergy Reaction POLYSPORIN (BACITRACIN-POLYMYXIN *07/15/2007 2 - Rash Date Reviewed: 04/16/2024 Reviewed by: Fatou Rodriguez LPN - Fully Assessed Reason for Visit: Results [95] chest xray results [Other] Prescriptions as of 05/19/2024 - lisinopril (ZESTRIL) 20 mg tablet Take 1 tablet by mouth once daily. - amLODIPine (NORVASC) 10 mg tablet Take 1 tablet by mouth once daily. - ergocalciferol 50,000 unit capsule (VITAMIN D2, DRISDOL) Take 1 capsule by mouth one time a week. - tamsulosin ER (FLOMAX) 0.4 mg cp24 Take 1 capsule by mouth daily at bedtime. - folic acid 400 mcg tablet Take 1 tablet by mouth once daily. - aspirin, enteric coated (ASPIR-81) 81 mg EC tablet Take 1 tablet by mouth once daily. - CENTRUM SILVER TAB Take one(1) tablet daily. Facility-Administered Medications as of 05/19/2024 - cyanocobalamin 1,000 mcg injection Meds Comments as of 02/08/2015: Patient is not currently taking all prescribed medication due to recent surgery. Problem List As Of Date 05/19/2024 Noted Resolved PERNICIOUS ANEMIA [D51.0] 09/13/2005 Elevated prostate specific antigen (PSA) [R97.2*10/22/2006 04/04/2012 ANEMIA NOS [D64.9] 09/09/2007 H/O MALIGNANT MELANOMA/PERS HX MALIG SKIN MELAN*06/03/2007 BPH W URINARY OBS/LUTS [N40.1, N13.8] 08/15/2007 07/30/2014 Malignant neoplasm of stomach, unspecified site*09/04/2007 07/29/2012 Routine general medical examination at [facility]*02/01/2009 09/07/2015 Essential hypertension [I10] 03/05/2009 Melanocytic Nevi/ Benign Neoplasm of Skin of Tr*06/18/2009 01/12/2017 NEVI FACE///Benign Neoplasm of Skin [D23.30] 06/18/2009 01/12/2017 Other Seborrheic Keratoses [L82.1] 06/18/2009 Solar Lentigines [L81.4] 06/18/2009 09/07/2015 Actnic Damage//Sun-Damaged Skin [L57.8] 06/18/2009 09/07/2015 H/O BCC//// of Other Malignant Neoplasm [Z85.82*06/18/2009 01/12/2017 Scar condition and fibrosis of skin [L90.5] 06/18/2009 09/07/2015 Bladder neck obstruction [N32.0] 08/05/2009 07/30/2014 Inguinal hernia [K40.90] 10/13/2010 02/23/2014 Vitamin D deficiency [E55.9] 07/31/2011 Irritated//Inflamed Seborrheic Keratosis [L82.0]03/05/2012 09/07/2015 Melanocytic Nevi of trunk: Junctional and Intra*03/05/2012 01/12/2017 Atypical nevus of abdominal wall [D22.5] 12/31/2012 01/12/2017 Melanocytic nevi of upper extremity or shoulder*12/31/2012 01/12/2017 Dermatofibroma of shoulder [D23.60] 12/31/2012 09/07/2015 BPH (benign prostatic hyperplasia) [N40.0] 07/30/2014 Elevated PSA [R97.20] 07/30/2014 Retroperitoneal mass [R19.00] 02/04/2015 09/07/2015 Venous insufficiency of both lower extremities *01/11/2022 Left leg weakness [R29.898] 07/14/2022 Raynaud's phenomenon without gangrene [I73.00] 07/14/2022 Aneurysm of ascending aorta without rupture (HC*04/30/2024 Encounter Status:Closed by FATOU RODRIGUEZ on 05/19/24 Normal [facility] XR CHEST 2V FRONTAL/LATon XR CHEST 2V FRONTAL/LAT * * *Final Report* * * DATE OF EXAM: May 14 2024 8:31AM WOX [id number] - XR CHEST 2V FRONTAL/LAT / PROCEDURE REASON: Pleural effusion * * * * Physician Interpretation * * * * EXAMINATION: CHEST RADIOGRAPH (2 VIEW FRONTAL and LATERAL) CLINICAL HISTORY: Pleural effusion MQ: XC2_6 EXAM DATE/TIME: 05/14/2024 8:31 AM COMPARISON: 04/14/2024 RESULT: Lines, tubes, and devices: None. Lungs and pleura: No consolidation. No lung mass. No persistent pleural effusion. No pneumothorax. Cardiomediastinal silhouette: Normal cardiomediastinal silhouette. Bones and soft tissues: Multilevel degenerative change and osteophytosis. IMPRESSION: No acute radiographic abnormality. Licensed Psychologist: JOVITA Transcribe Date/Time: May 14 2024 4:17P Dictated by : CORNELL JAMISON MD This examination was interpreted and the report reviewed and electronically signed by: CORNELL JAMISON MD on May 14 2024 4:19PM EST [id number] Normal [facility] XR Chest PA and Lateralon IMPRESSION: No acute radiographic abnormality. Licensed Psychologist: JOVITA Transcribe Date/Time: May 14 2024 4:17P Dictated by : CORNELL JAMISON MD This examination was interpreted and the report reviewed and electronically signed by: CORNELL JAMISON MD on May 14 2024 4:19PM EST DIVISION OF RADIOLOGY * * *Final Report* * * DATE OF EXAM: May 14 2024 8:31AM WOX [id number] - XR CHEST 2V FRONTAL/LAT / PROCEDURE REASON: Pleural effusion * * * * Physician Interpretation * * * * EXAMINATION: CHEST RADIOGRAPH (2 VIEW FRONTAL & LATERAL) CLINICAL HISTORY: Pleural effusion MQ: XC2_6 EXAM DATE/TIME: 05/14/2024 8:31 AM COMPARISON: 04/14/2024 RESULT: Lines, tubes, and devices: None. Lungs and pleura: No consolidation. No lung mass. No persistent pleural effusion. No pneumothorax. Cardiomediastinal silhouette: Normal cardiomediastinal silhouette. Bones and soft tissues: Multilevel degenerative change and osteophytosis. DIVISION OF RADIOLOGY Provider, Rosas Hoskins - 05/14/2024 * * *Final Report* * * DATE OF EXAM: May 14 2024 8:31AM WOX [id number] - XR CHEST 2V FRONTAL/LAT / PROCEDURE REASON: Pleural effusion * * * * Physician Interpretation * * * * EXAMINATION: CHEST RADIOGRAPH (2 VIEW FRONTAL & LATERAL) CLINICAL HISTORY: Pleural effusion MQ: XC2_6 EXAM DATE/TIME: 05/14/2024 8:31 AM COMPARISON: 04/14/2024 RESULT: Lines, tubes, and devices: None. Lungs and pleura: No consolidation. No lung mass. No persistent pleural effusion. No pneumothorax. Cardiomediastinal silhouette: Normal cardiomediastinal silhouette. Bones and soft tissues: Multilevel degenerative change and osteophytosis. IMPRESSION IMPRESSION: No acute radiographic abnormality. Licensed Psychologist: PSCB Transcribe Date/Time: May 14 2024 4:17P Dictated by : CORNELL JAMISON MD This examination was interpreted and the report reviewed and electronically signed by: CORNELL JAMISON MD on May 14 2024 4:19PM EST [facility] Radiology Study observation (narrative) [facility] XR Chest PA and LateralOrder ed By: [facility]cf Provider on 05-14-2024 [facility] CNNURSEon 05-12-2024 CNNURSE Nurse Visit (FAMPWS) -------- HERIBERTO PEÑALOZA ([id number]) 1950 M NFR Date Time Provider Department 05/12/24 9:15 AM MA NURSE BLU During your visit today, we recorded the following information about you: Ramonita Trevino LPN 05/12/2024 9:14 AM Signed Patient presents for B-12 injection. Denies any problems at this time. Patient instructed on any SE of medication, verbalized understanding and agreed to proceed with treatment. Tolerated injection well. Ramonita Trevino LPN Allergies As of Date: 05/12/2024 Noted Allergy Reaction POLYSPORIN (BACITRACIN-POLYMYXIN *07/15/2007 2 - Rash Date Reviewed: 04/16/2024 Reviewed by: Fatou Rodriguez LPN - Fully Assessed Reason for Visit: B-12 Injection [247] Primary Visit Diagnosis:Pernicious anemia [D51.0] Prescriptions as of 05/12/2024 - lisinopril (ZESTRIL) 10 mg tablet Take 2 tablets by mouth once daily. - amLODIPine (NORVASC) 10 mg tablet Take 1 tablet by mouth once daily. - ergocalciferol 50,000 unit capsule (VITAMIN D2, DRISDOL) Take 1 capsule by mouth one time a week. - tamsulosin ER (FLOMAX) 0.4 mg cp24 Take 1 capsule by mouth daily at bedtime. - folic acid 400 mcg tablet Take 1 tablet by mouth once daily. - aspirin, enteric coated (ASPIR-81) 81 mg EC tablet Take 1 tablet by mouth once daily. - CENTRUM SILVER TAB Take one(1) tablet daily. Facility-Administered Medications as of 05/12/2024 - cyanocobalamin 1,000 mcg injection Meds Comments as of 02/08/2015: Patient is not currently taking all prescribed medication due to recent surgery. Problem List As Of Date 05/12/2024 Noted Resolved PERNICIOUS ANEMIA [D51.0] 09/13/2005 Elevated prostate specific antigen (PSA) [R97.2*10/22/2006 04/04/2012 ANEMIA NOS [D64.9] 09/09/2007 H/O MALIGNANT MELANOMA/PERS HX MALIG SKIN MELAN*06/03/2007 BPH W URINARY OBS/LUTS [N40.1, N13.8] 08/15/2007 07/30/2014 Malignant neoplasm of stomach, unspecified site*09/04/2007 07/29/2012 Routine general medical examination at [facility]*02/01/2009 09/07/2015 Essential hypertension [I10] 03/05/2009 Melanocytic Nevi/ Benign Neoplasm of Skin of Tr*06/18/2009 01/12/2017 NEVI FACE///Benign Neoplasm of Skin [D23.30] 06/18/2009 01/12/2017 Other Seborrheic Keratoses [L82.1] 06/18/2009 Solar Lentigines [L81.4] 06/18/2009 09/07/2015 Actnic Damage//Sun-Damaged Skin [L57.8] 06/18/2009 09/07/2015 H/O BCC//// of Other Malignant Neoplasm [Z85.82*06/18/2009 01/12/2017 Scar condition and fibrosis of skin [L90.5] 06/18/2009 09/07/2015 Bladder neck obstruction [N32.0] 08/05/2009 07/30/2014 Inguinal hernia [K40.90] 10/13/2010 02/23/2014 Vitamin D deficiency [E55.9] 07/31/2011 Irritated//Inflamed Seborrheic Keratosis [L82.0]03/05/2012 09/07/2015 Melanocytic Nevi of trunk: Junctional and Intra*03/05/2012 01/12/2017 Atypical nevus of abdominal wall [D22.5] 12/31/2012 01/12/2017 Melanocytic nevi of upper extremity or shoulder*12/31/2012 01/12/2017 Dermatofibroma of shoulder [D23.60] 12/31/2012 09/07/2015 BPH (benign prostatic hyperplasia) [N40.0] 07/30/2014 Elevated PSA [R97.20] 07/30/2014 Retroperitoneal mass [R19.00] 02/04/2015 09/07/2015 Venous insufficiency of both lower extremities *01/11/2022 Left leg weakness [R29.898] 07/14/2022 Raynaud's phenomenon without gangrene [I73.00] 07/14/2022 Aneurysm of ascending aorta without rupture (HC*04/30/2024 Encounter Status:Closed by RAMONITA TREVINO on 05/12/24 Normal [facility] 05-12-2024 CNPN Telephone (INTMWS) -------- HERIBERTO PEÑALOZA ([id number]) 1950 M NFR Date Time Provider Department 05/12/24 PIYUSH RIVERA INTMWS During your visit today, we recorded the following information about you: Ramonita Trevino LPN 05/12/2024 9:25 AM Signed Patient here for B-12 nurse visit. BP checked at this time d/t recent increase in Linsinopril to 20mg daily. Tolerating medication well with no problems. Patient is here for a blood pressure check. Initial BP: 135/71 P 74 BP Daniel average: 139/68 P 72 Repeat BP Check: 133/70 P43. #1 144/70 P73 #2 144/66 P71 #3 138/65 P71 #4 135/69 P72 #5 139/67 P71 #6 Does patient report chest pain? No Does patient report dizziness? No Does patient report shortness of breath? No Any complaints voiced by patient? No Medications reviewed? Yes Current Outpatient Medications Medication Sig lisinopril (ZESTRIL) 10 mg tablet Take 2 tablets by mouth once daily. amLODIPine (NORVASC) 10 mg tablet Take 1 tablet by mouth once daily. ergocalciferol 50,000 unit capsule (VITAMIN D2, DRISDOL) Take 1 capsule by mouth one time a week. tamsulosin ER (FLOMAX) 0.4 mg cp24 Take 1 capsule by mouth daily at bedtime. folic acid 400 mcg tablet Take 1 tablet by mouth once daily. aspirin, enteric coated (ASPIR-81) 81 mg EC tablet Take 1 tablet by mouth once daily. CENTRUM SILVER TAB Take one(1) tablet daily. Current Facility-Administered Medications Medication Dose Route Frequency cyanocobalamin 1,000 mcg injection 1,000 mcg INTRAMUSCULAR q 1 MONTH Will review with Piyush Rivera MD Next Appointment: 05/19/24 Will need refill of higher Lisinopril dosing. ZHANNA Fuller Victor H, MD 05/14/2024 12:06 AM Signed Improved BP. The following approved medication requests have been transmitted electronically. Requested Prescriptions Signed Prescriptions Disp Refills lisinopril (ZESTRIL) 20 mg tablet 30 tablet 5 Sig: Take 1 tablet by mouth once daily. Authorizing Provider: PIYUSH RIVERA MD Allergies As of Date: 05/12/2024 Noted Allergy Reaction POLYSPORIN (BACITRACIN-POLYMYXIN *07/15/2007 2 - Rash Date Reviewed: 04/16/2024 Reviewed by: Fatou Rodriguez LPN - Fully Assessed Reason for Visit: blood pressure update [Other] Visit Diagnosis:Essential hypertension [I10] Order(s):lisinopril (ZESTRIL) 20 mg tabletTake 1 tablet by mouth once daily.Disp: 30 tabletRfl: 5 Prescriptions as of 05/14/2024 - lisinopril (ZESTRIL) 20 mg tablet Take 1 tablet by mouth once daily. - amLODIPine (NORVASC) 10 mg tablet Take 1 tablet by mouth once daily. - ergocalciferol 50,000 unit capsule (VITAMIN D2, DRISDOL) Take 1 capsule by mouth one time a week. - tamsulosin ER (FLOMAX) 0.4 mg cp24 Take 1 capsule by mouth daily at bedtime. - folic acid 400 mcg tablet Take 1 tablet by mouth once daily. - aspirin, enteric coated (ASPIR-81) 81 mg EC tablet Take 1 tablet by mouth once daily. - CENTRUM SILVER TAB Take one(1) tablet daily. Facility-Administered Medications as of 05/14/2024 - cyanocobalamin 1,000 mcg injection Meds Comments as of 02/08/2015: Patient is not currently taking all prescribed medication due to recent surgery. Problem List As Of Date 05/12/2024 Noted Resolved PERNICIOUS ANEMIA [D51.0] 09/13/2005 Elevated prostate specific antigen (PSA) [R97.2*10/22/2006 04/04/2012 ANEMIA NOS [D64.9] 09/09/2007 H/O MALIGNANT MELANOMA/PERS HX MALIG SKIN MELAN*06/03/2007 BPH W URINARY OBS/LUTS [N40.1, N13.8] 08/15/2007 07/30/2014 Malignant neoplasm of stomach, unspecified site*09/04/2007 07/29/2012 Routine general medical examination at a [facility]*02/01/2009 09/07/2015 Essential hypertension [I10] 03/05/2009 Melanocytic Nevi/ Benign Neoplasm of Skin of Tr*06/18/2009 01/12/2017 NEVI FACE///Benign Neoplasm of Skin [D23.30] 06/18/2009 01/12/2017 Other Seborrheic Keratoses [L82.1] 06/18/2009 Solar Lentigines [L81.4] 06/18/2009 09/07/2015 Actnic Damage//Sun-Damaged Skin [L57.8] 06/18/2009 09/07/2015 H/O BCC//// of Other Malignant Neoplasm [Z85.82*06/18/2009 01/12/2017 Scar condition and fibrosis of skin [L90.5] 06/18/2009 09/07/2015 Bladder neck obstruction [N32.0] 08/05/2009 07/30/2014 Inguinal hernia [K40.90] 10/13/2010 02/23/2014 Vitamin D deficiency [E55.9] 07/31/2011 Irritated//Inflamed Seborrheic Keratosis [L82.0]03/05/2012 09/07/2015 Melanocytic Nevi of trunk: Junctional and Intra*03/05/2012 01/12/2017 Atypical nevus of abdominal wall [D22.5] 12/31/2012 01/12/2017 Melanocytic nevi of upper extremity or shoulder*12/31/2012 01/12/2017 Dermatofibroma of shoulder [D23.60] 12/31/2012 09/07/2015 BPH (benign prostatic hyperplasia) [N40.0] 07/30/2014 Elevated PSA [R97.20] 07/30/2014 Retroperitoneal mass [R19.00] 02/04/2015 09/07/2015 Venous insufficiency of both lower extremities *01/11/2022 Left leg weakness [R29.898] 06/27 (more content not included)... Normal [facility] ECHOon 04-24-2024 Echocardiography Echocardiography Rep ort: Transthoracic Echo [facility] Date of service: 04/24/2024 3:16:22 PM [employer] Ordering physician: PIYUSH RIVERA Indication: Abnormal ECG Technologist: Ana Scales [facility] Interpreting physician: Kartik Sanchez MD PATIENT: Name: MR. HERIBERTO PEÑALOZA : 1950 Age: 73 years Gender: M History of hypertension. Primary rhythm: sinus. Height: 178.40 cm BSA: 1.91 m Weight: 73.60 kg BMI: 23.1 kg/m Heart rate 66 bpm Blood pressure 151/76 mmHg Technically difficult exam due to body habitus. Color Doppler was utilized to interrogate the cardiac valves assessed and spectral Doppler was utilized to determine the flow velocities and pressure gradients reported in this exam. MEASUREMENTS: Value Indexed Normal Max aortic dimension 4.6 cm Ao < 3.8 Left atrial volume 41 ml (4ch A-L) 22 ml/m Eileen <= 34 LV ID (diastole) 5.0 cm (2D) 2.61 cm/m LV ID (systole) 3.2 cm (2D) 1.68 cm/m IVS, leaflet tips 1.1 cm (2D) Posterior wall thickness 1.1 cm (2D) Left ventricular mass 209 g (2D) 110 g/m LV stroke volume 65 ml (2D biplane) LV end diastolic volume 118 ml (2D biplane) 61.6 ml/m 34<=EDVi<75 LV end systolic volume 53 ml (2D biplane) 27.7 ml/m Ejection Fraction 55 % (2D biplane) EF > 52 FINDINGS: LEFT VENTRICLE The left ventricle is normal in size. Left ventricular systolic function is normal. Grade I left ventricular diastolic dysfunction. Mitral annular lateral E/e': 8.7. Mitral annular septal E/e': 7.5. Wall Motion: All scored segments are normal. RIGHT VENTRICLE The right ventricle is normal in size. Right ventricular systolic function is normal. RV systolic tissue Doppler velocity is 11.0 cm/s. Estimated right ventricular systolic pressure is 28 mmHg consistent with normal pulmonary artery pressures. Estimated right atrial pressure is 3 mmHg (although IVC not seen). LEFT ATRIUM The left atrial cavity is normal in size. RIGHT ATRIUM The right atrial cavity is normal in size. Inferior Vena Cava: The inferior vena cava appears dilated measuring 2.1 cm. MITRAL VALVE The mitral valve leaflets are structurally normal. There is no mitral valve regurgitation. The pressure half time is 77 msec. The peak mitral E/A ratio is 0.80. The average mitral E/e' ratio is 8.1. The mitral flow deceleration time is 267 msec. TRICUSPID VALVE The tricuspid valve leaflets are structurally normal. There is trace (trace - 1+) tricuspid valve regurgitation. AORTIC VALVE The aortic valve cusps are structurally normal. There is mild (1+) aortic valve regurgitation. Tricuspid aortic valve. The peak gradient is 5 mmHg (peak velocity = 107.6 cm/s). PULMONIC VALVE The pulmonic valve cusps are structurally normal. There is mild (1+ - 2+) pulmonic valve regurgitation. AORTA The visualized aorta is dilated. Measurements - Sinus: 3.8 cm. Sinotubular junction 3.4 cm. Mid ascending aorta 4.6 cm. Distal ascending aorta 4.5 cm. Mid arch 4.0 cm. PERICARDIUM There is no pericardial effusion. CONCLUSIONS: - Technically difficult exam due to body habitus. - Exam indication: Abnormal ECG - The left ventricle is normal in size. Left ventricular systolic function is normal. EF = 55 5% (2D biplane) Grade I left ventricular diastolic dysfunction. - The right ventricle is normal in size. Right ventricular systolic function is normal. - There are no significant valvular abnormalities. - The visualized aorta is dilated with a maximal dimension of 4.6 cm. - Exam was compared with the prior echocardiographic exam performed on 01/27/2015 (Stress). The LVEF has increased slightly. * * * Final (Updated) * * * [employer] [facility] Image : [id number] Normal [facility] CNOVon 04-16-2024 CNOV Office Visit (INTMWS ) -------- HERIBERTO PEÑALOZA ([id number]) 1950 M NFR Date Time Provider Department 04/16/24 8:20 AM IPYUSH RIVERA INTMWS During your visit today, we recorded the following information about you: Temperature Pulse Respiration Blood pressure 97.5 degrees 69/minute 20/minute 146/78 Weight 73.6 kg Piyush Rivera MD 04/16/2024 9:10 AM Signed This note was created using [employer]. Subjective Heriberto Peñaloza is a 73 year old male. He developed a cough more than one week ago, and had no other symptoms. He tested + for Covid, and the finding of pleural effusion prompted other studies with borderline elevation of d dimer and BNP. He felt back to normal. He had no cardiac disease. He had no leg pain, no inactivity or prolonged immobility, no history of PE or DVT. Review of Systems Constitutional: Negative for chills, fatigue and fever. Respiratory: Negative for chest tightness and shortness of breath. Cardiovascular: Negative for chest pain, palpitations and leg swelling. Gastrointestinal: Negative. Musculoskeletal: Negative for myalgias. ACTIVE PROBLEM LIST Pernicious Anemia H/O MALIGNANT MELANOMA/PERS HX MALIG SKIN MELANOMA Essential Hypertension Other Seborrheic Keratoses Vitamin D Deficiency Bph (Benign Prostatic Hyperplasia) Elevated Psa Venous Insufficiency of Both Lower Extremities Left Leg Weakness Raynaud's Phenomenon Without Gangrene Current Outpatient Medications Medication Sig lisinopril (ZESTRIL) 10 mg tablet Take 1 tablet by mouth once daily. amLODIPine (NORVASC) 10 mg tablet Take 1 tablet by mouth once daily. ergocalciferol 50,000 unit capsule (VITAMIN D2, DRISDOL) Take 1 capsule by mouth one time a week. tamsulosin ER (FLOMAX) 0.4 mg cp24 Take 1 capsule by mouth daily at bedtime. folic acid 400 mcg tablet Take 1 tablet by mouth once daily. aspirin, enteric coated (ASPIR-81) 81 mg EC tablet Take 1 tablet by mouth once daily. CENTRUM SILVER TAB Take one(1) tablet daily. Current Facility-Administered Medications Medication Dose Route Frequency cyanocobalamin 1,000 mcg injection 1,000 mcg INTRAMUSCULAR q 1 MONTH Objective BP 146/78 (BP Site: Left Arm, BP Position: Sitting, BP Cuff Size: Large Adult) Pulse 69 Temp 36.4 ?C (97.5 ?F) (Temporal) Resp 20 Wt 73.6 kg (162 lb 4.1 oz) BMI 23.12 kg/m? Physical Exam Constitutional: Appearance: Normal appearance. He is not ill-appearing or diaphoretic. Cardiovascular: Rate and Rhythm: Normal rate and regular rhythm. Heart sounds: No murmur heard. No gallop. Pulmonary: Effort: No respiratory distress. Breath sounds: Normal breath sounds. No wheezing or rales. Musculoskeletal: General: No tenderness. Right lower leg: No edema. Left lower leg: No edema. Neurological: Mental Status: He is alert. Latest Ref [facility] 04/14/2024 WBC 3.70 - 11.00 k/uL 6.06 RBC 4.20 - 6.00 m/uL 4.66 Hemoglobin 13.0 - 17.0 g/dL 13.1 Hematocrit 39.0 - 51.0 % 41.2 MCV 80.0 - 100.0 fL 88.4 MCH 26.0 - 34.0 pg 28.1 MCHC 30.5 - 36.0 g/dL 31.8 RDW-CV 11.5 - 15.0 % 14.9 Platelet Count 150 - 400 k/uL 202 MPV 9.0 - 12.7 fL 11.9 Neut% % 53.1 Abs Neut (ANC) 1.45 - 7.50 k/uL 3.22 Lymph% % 33.2 Abs Lymph 1.00 - 4.00 k/uL 2.01 Stanley% % 11.1 Abs Stanley <0.87 k/uL 0.67 Eosin% % 2.0 Abs Eosin <0.46 k/uL 0.12 Baso% % 0.3 Abs Baso <0.11 k/uL <0.03 Immature Gran % % 0.3 IMMATURE GRANS (ABS) <0.10 k/uL <0.03 NRBC /100 WBC 0.0 Absolute nRBC <0.01 k/uL <0.01 DTYPE Auto Protein, Total 6.3 - 8.0 g/dL 6.9 Albumin 3.9 - 4.9 g/dL 4.0 Calcium 8.5 - 10.2 mg/dL 8.9 Bilirubin, Total 0.2 - 1.3 mg/dL 0.4 Alkaline Phosphatase 38 - 113 U/L 86 AST 14 - 40 U/L 17 ALT 10 - 54 U/L 14 Glucose 74 - 99 mg/dL 79 BUN 9 - 24 mg/dL 18 Creatinine 0.73 - 1.22 mg/dL 1.18 Sodium 136 - 144 mmol/L 142 Potassium 3.7 - 5.1 mmol/L 4.5 Chloride 98 - 107 mmol/L 106 CO2 22 - 30 mmol/L 24 Anion Gap 8 - 15 mmol/L 12 eGFR >=60 mL/min/1.73m? 65 d Dimer <500 ng/mL FEU 740 (H) D Dimer Age-related Cutoff ng/mL FEU 730 COVID 19 Result See comment Detected ! NT Pro BNP <125 pg/mL 218 (H) Legend: (H) High ! Abnormal EKG RESULTS: normal sinus rhythm, LBBB, RBBB, and T wave abnormality lateral leads. Assessment and Plan 1. COVID-19 - ICD9: 079.89, ICD10: U07.1 (primary diagnosis) - Resolving. Continue precautions. 2. Pleural effusion - ICD9: 511.9, ICD10: J90 I suspect viral. Recheck in 3 weeks. - ECG COMPLETE - SODIUM CHLORIDE 0.9 % (FLUSH) INJECTION SYRINGE - XR CHEST 2V FRONTAL/LAT 3. Abnormal blood chemistry - ICD9: 790.6, ICD10: R79.9 Unclear significance. Patient is clinically fine. See #5. - SODIUM CHLORIDE 0.9 % (FLUSH) INJECTION SYRINGE 4. Essential hypertension - ICD9: 401.9, ICD10: I10 Not at goal. We have been increasing lisinopril. - LISINOPRIL 10 MG TABLET. Increase to 20 mg (2 tablets) (more content not included)... Normal [facility] ECG COMPLETEon 04-16-2024 ECG COMPLETE Ventricular Rate : 6 4 BPM Atrial Rate : 64 BPM P-R Interval : 154 ms QRS Duration : 130 ms Q-T Interval : 450 ms QTC Calculation(Bazett) : 464 ms Calculated P [place] : 57 degrees Calculated R [place] : -60 degrees Calculated T [place] : -36 degrees NORMAL SINUS RHYTHM COMPLETE RIGHT BUNDLE BRANCH BLOCK LEFT ANTERIOR FASCICULAR BLOCK BIFASCICULAR BLOCK LATERAL T WAVE ABNORMALITY ABNORMAL ECG Confirmed by ILA SANTIZO DO ([id number]) on 04/17/2024 1:01:24 PM NAME : HERIBERTO PEÑALOZA PID : [id number] : 1950 Gender : Male Race : ORD : [id number] Procedure Date : Apr 16 2024 08:43:30 Edit Date : Apr 17 2024 13:55:35 Diagnosis: NORMAL SINUS RHYTHM COMPLETE RIGHT BUNDLE BRANCH BLOCK LEFT ANTERIOR FASCICULAR BLOCK BIFASCICULAR BLOCK LATERAL T WAVE ABNORMALITY ABNORMAL ECG Confirmed by ILA SANTIZO DO ([id number]) on 04/17/2024 1:01:24 PM Test Reason : J90 Pleural effusion Location : 185 : [facility] Overread By : ILA SANTIZO DO Edited By : ILA SANTIZO DO Referred By : PIYUSH RIVERA Acquired by : Armando MAHARAJ [facility] -------- HERIBERTO PEÑALOZA ([id number]) 1950 M R Date Time Provider Department 04/15/24 SUZANNE TSANG [facility] During your visit today, we recorded the following information about you: Suzanne Tsang PA 04/15/2024 7:00 PM Signed I spoke with Negra Odonnell CNP in Dr. Rivera's office. She will make Dr. Rivera aware of the mildly elevated D-dimer. Patient is COVID-positive. He has a follow-up with PCP tomorrow. PCPs office is aware of the result. Allergies As of Date: 04/15/2024 Noted Allergy Reaction POLYSPORIN (BACITRACIN-POLYMYXIN *07/15/2007 2 - Rash Date Reviewed: 04/14/2024 Reviewed by: Sadie Toscano LPN - Fully Assessed Reason for Visit: Results [95] Prescriptions as of 04/15/2024 - lisinopril (ZESTRIL) 10 mg tablet Take 1 tablet by mouth once daily. - amLODIPine (NORVASC) 10 mg tablet Take 1 tablet by mouth once daily. - ergocalciferol 50,000 unit capsule (VITAMIN D2, DRISDOL) Take 1 capsule by mouth one time a week. - tamsulosin ER (FLOMAX) 0.4 mg cp24 Take 1 capsule by mouth daily at bedtime. - folic acid 400 mcg tablet Take 1 tablet by mouth once daily. - aspirin, enteric coated (ASPIR-81) 81 mg EC tablet Take 1 tablet by mouth once daily. - CENTRUM SILVER TAB Take one(1) tablet daily. Facility-Administered Medications as of 04/15/2024 - cyanocobalamin 1,000 mcg injection Meds Comments as of 02/08/2015: Patient is not currently taking all prescribed medication due to recent surgery. Problem List As Of Date 04/15/2024 Noted Resolved PERNICIOUS ANEMIA [D51.0] 09/13/2005 Elevated prostate specific antigen (PSA) [R97.2*10/22/2006 04/04/2012 ANEMIA NOS [D64.9] 09/09/2007 H/O MALIGNANT MELANOMA/PERS HX MALIG SKIN MELAN*06/03/2007 BPH W URINARY OBS/LUTS [N40.1, N13.8] 08/15/2007 07/30/2014 Malignant neoplasm of stomach, unspecified site*09/04/2007 07/29/2012 Routine general medical examination at [facility]*02/01/2009 09/07/2015 Essential hypertension [I10] 03/05/2009 Melanocytic Nevi/ Benign Neoplasm of Skin of Tr*06/18/2009 01/12/2017 NEVI FACE///Benign Neoplasm of Skin [D23.30] 06/18/2009 01/12/2017 Other Seborrheic Keratoses [L82.1] 06/18/2009 Solar Lentigines [L81.4] 06/18/2009 09/07/2015 Actnic Damage//Sun-Damaged Skin [L57.8] 06/18/2009 09/07/2015 H/O BCC//// of Other Malignant Neoplasm [Z85.82*06/18/2009 01/12/2017 Scar condition and fibrosis of skin [L90.5] 06/18/2009 09/07/2015 Bladder neck obstruction [N32.0] 08/05/2009 07/30/2014 Inguinal hernia [K40.90] 10/13/2010 02/23/2014 Vitamin D deficiency [E55.9] 07/31/2011 Irritated//Inflamed Seborrheic Keratosis [L82.0]03/05/2012 09/07/2015 Melanocytic Nevi of trunk: Junctional and Intra*03/05/2012 01/12/2017 Atypical nevus of abdominal wall [D22.5] 12/31/2012 01/12/2017 Melanocytic nevi of upper extremity or shoulder*12/31/2012 01/12/2017 Dermatofibroma of shoulder [D23.60] 12/31/2012 09/07/2015 BPH (benign prostatic hyperplasia) [N40.0] 07/30/2014 Elevated PSA [R97.20] 07/30/2014 Retroperitoneal mass [R19.00] 02/04/2015 09/07/2015 Venous insufficiency of both lower extremities *01/11/2022 Left leg weakness [R29.898] 07/14/2022 Raynaud's phenomenon without gangrene [I73.00] 07/14/2022 Encounter Status:Closed by [facility] HERIBERTO PEÑALOZA ([id number]) 1950 M NFR Date Time Provider Department [facility]/15[facility] During your visit today, we recorded the following information about you: Suzanne Tsang PA 04/15/2024 7:20 AM Signed Please contact patient and let him know he tested positive for COVID-19. He is out of the window for treatment with antiviral. Keep appointment with PCP follow-up tomorrow. Sadie Toscano LPN 04/15/2024 8:49 AM Signed Patient notified.Sadie Toscano LPN Allergies As of Date: 04/15/2024 Noted Allergy Reaction POLYSPORIN (BACITRACIN-POLYMYXIN *07/15/2007 2 - Rash Date Reviewed: 04/14/2024 Reviewed by: Sadie Toscano LPN - Fully Assessed Reason for Visit: Results [95] Prescriptions as of 04/15/2024 - lisinopril (ZESTRIL) 10 mg tablet Take 1 tablet by mouth once daily. - amLODIPine (NORVASC) 10 mg tablet Take 1 tablet by mouth once daily. - ergocalciferol 50,000 unit capsule (VITAMIN D2, DRISDOL) Take 1 capsule by mouth one time a week. - tamsulosin ER (FLOMAX) 0.4 mg cp24 Take 1 capsule by mouth daily at bedtime. - folic acid 400 mcg tablet Take 1 tablet by mouth once daily. - aspirin, enteric coated (ASPIR-81) 81 mg EC tablet Take 1 tablet by mouth once daily. - CENTRUM SILVER TAB Take one(1) tablet daily. Facility-Administered Medications as of 04/15/2024 - cyanocobalamin 1,000 mcg injection Meds Comments as of 02/08/2015: Patient is not currently taking all prescribed medication due to recent surgery. Problem List As Of Date 04/15/2024 Noted Resolved PERNICIOUS ANEMIA [D51.0] 09/13/2005 Elevated prostate specific antigen (PSA) [R97.2*10/22/2006 04/04/2012 ANEMIA NOS [D64.9] 09/09/2007 H/O MALIGNANT MELANOMA/PERS HX MALIG SKIN MELAN*06/03/2007 BPH W URINARY OBS/LUTS [N40.1, N13.8] 08/15/2007 07/30/2014 Malignant neoplasm of stomach, unspecified site*09/04/2007 07/29/2012 Routine general medical examination at [facility]*02/01/2009 09/07/2015 Essential hypertension [I10] 03/05/2009 Melanocytic Nevi/ Benign Neoplasm of Skin of Tr*06/18/2009 01/12/2017 NEVI FACE///Benign Neoplasm of Skin [D23.30] 06/18/2009 01/12/2017 Other Seborrheic Keratoses [L82.1] 06/18/2009 Solar Lentigines [L81.4] 06/18/2009 09/07/2015 Actnic Damage//Sun-Damaged Skin [L57.8] 06/18/2009 09/07/2015 H/O BCC//// of Other Malignant Neoplasm [Z85.82*06/18/2009 01/12/2017 Scar condition and fibrosis of skin [L90.5] 06/18/2009 09/07/2015 Bladder neck obstruction [N32.0] 08/05/2009 07/30/2014 Inguinal hernia [K40.90] 10/13/2010 02/23/2014 Vitamin D deficiency [E55.9] 07/31/2011 Irritated//Inflamed Seborrheic Keratosis [L82.0]03/05/2012 09/07/2015 Melanocytic Nevi of trunk: Junctional and Intra*03/05/2012 01/12/2017 Atypical nevus of abdominal wall [D22.5] 12/31/2012 01/12/2017 Melanocytic nevi of upper extremity or shoulder*12/31/2012 01/12/2017 Dermatofibroma of shoulder [D23.60] 12/31/2012 09/07/2015 BPH (benign prostatic hyperplasia) [N40.0] 07/30/2014 Elevated PSA [R97.20] 07/30/2014 Retroperitoneal mass [R19.00] 02/04/2015 09/07/2015 Venous insufficiency of both lower extremities *01/11/2022 Left leg weakness [R29.898] 07/14/2022 Raynaud's phenomenon without gangrene [I73.00] 07/14/2022 Encounter Status:Closed by SADIE TOSCANO on 04/15/24 Normal [facility] CBC W Auto Differential pane l (Bld)on 04-14-2024 Basophils (Bld) [#/Vol] 10*3/uL Normal <0.11 [facility] Comment on above: Order Comment: Speci men Type: BLOOD SPECIMENOrdering Facility: [facility] Address: [address] [place] [address] Performed By: #### 5 7021-8 ####[facility] LABCLIA [id number] [place] [address] [place] Basophils/100 WBC (Bld) 0.3 % Normal [facility] Comment on above: Order Comment: Speci men Type: BLOOD SPECIMENOrdering Facility: [facility] Address: [address] [place] [address] Performed By: #### 5 7021-8 ####[facility] LABCLIA [id number] [place] [address] [place] Differential cell count method Nom (Bld) Auto Normal [facility] Comment on above: Order Comment: Speci men Type: BLOOD SPECIMENOrdering Facility: [facility] Address: [address] [place] [address] Performed By: #### 5 7021-8 ####[facility] LABCLIA [id number] [place] [address] [place] Eosinophils (Bld) [#/Vol] 0.12 10*3/uL Normal <0.46 [facility] Comment on above: Order Comment: Speci men Type: BLOOD SPECIMENOrdering Facility: [facility] Address: [address] [place] [address] Performed By: #### 5 7021-8 ####[facility] LABCLIA [id number] [place] [address] [place] Eosinophils/100 WBC (Bld) 2.0 % Normal [facility] Comment on above: Order Comment: Speci men Type: BLOOD SPECIMENOrdering Facility: [facility] Address: [address] [place] [address] Performed By: #### 5 7021-8 ####[facility] LABCLIA [id number] [place] [address] [place] Erythrocyte distribution width (RBC) [Ratio] 14.9 % Normal 11.5-15.0 [facility] Comment on above: Order Comment: Speci men Type: BLOOD SPECIMENOrdering Facility: [facility] Address: [address] [place] [address] Performed By: #### 5 7021-8 ####[facility] LABCLIA [id number] [place] [address] [place] Hematocrit (Bld) [Volume fraction] 41.2 % Normal 39.0-51.0 [facility] Comment on above: Order Comment: Speci men Type: BLOOD SPECIMENOrdering Facility: [facility] Address: [address] [place] [address] Performed By: #### 5 7021-8 ####[facility] LABCLIA [id number] [place] [address] [place] Hemoglobin (Bld) [Mass/Vol] 13.1 g/dL Normal 13.0-17.0 [facility] Comment on above: Order Comment: Speci men Type: BLOOD SPECIMENOrdering Facility: [facility] Address: [address] [place] [address] Performed By: #### 5 7021-8 ####[facility] LABCLIA [id number] [place] [address] [place] Immature granulocytes (Bld) [#/Vol] 10*3/uL Normal <0.10 [facility] Comment on above: Order Comment: Speci men Type: BLOOD SPECIMENOrdering Facility: [facility] Address: [address] [place] [address] Performed By: #### 5 7021-8 ####[facility] LABCLIA [id number] [place] [address] [place] Immature granulocytes/100 WBC (Bld) 0.3 % Normal [facility] Comment on above: Order Comment: Speci men Type: BLOOD SPECIMENOrdering Facility: [facility] Address: [address] [place] [address] Performed By: #### 5 7021-8 ####[facility] LABIA [id number] [place] [address] [place] Lymphocytes (Bld) [#/Vol] 2.01 10*3/uL Normal 1.00-4.00 [facility] Comment on above: Order Comment: Speci men Type: BLOOD SPECIMENOrdering Facility: [facility] Address: [address] [place] [address] Performed By: #### 5 7021-8 ####[facility] LABIA [id number] [place] [address] [place] Lymphocytes/100 WBC (Bld) 33.2 % Normal [facility] Comment on above: Order Comment: Speci men Type: BLOOD SPECIMENOrdering Facility: [facility] Address: [address] [place] [address] Performed By: #### 5 7021-8 ####[facility] LABIA [id number] [place] [address] [place] MCH (RBC) [Entitic mass] 28.1 pg Normal 26.0-34.0 [facility] Comment on above: Order Comment: Speci men Type: BLOOD SPECIMENOrdering Facility: [facility] Address: [address] [place] [address] Performed By: #### 5 7021-8 ####[facility] LABIA [id number] [place] [address] [place] MCHC (RBC) [Mass/Vol] 31.8 g/dL Normal 30.5-36.0 [facility] Comment on above: Order Comment: Speci men Type: BLOOD SPECIMENOrdering Facility: [facility] Address: [address] [place] [address] Performed By: #### 5 7021-8 ####[facility] LABCLIA [id number] [place] [address] [place] MCV (RBC) [Entitic vol] 88.4 fL Normal 80.0-100.0 [facility] Comment on above: Order Comment: Speci men Type: BLOOD SPECIMENOrdering Facility: [facility] Address: [address] [place] [address] Performed By: #### 5 7021-8 ####[facility] LABCLIA [id number] [place] [address] [place] Monocytes (Bld) [#/Vol] 0.67 10*3/uL Normal <0.87 [facility] Comment on above: Order Comment: Speci men Type: BLOOD SPECIMENOrdering Facility: [facility] Address: [address] [place] [address] Performed By: #### 5 7021-8 ####[facility] LABCLIA [id number] [place] [address] [place] Monocytes/100 WBC (Bld) 11.1 % Normal [facility] Comment on above: Order Comment: Speci men Type: BLOOD SPECIMENOrdering Facility: [facility] Address: [address] [place] [address] Performed By: #### 5 7021-8 ####[facility] LABCLIA [id number] [place] [address] [place] Neutrophils (Bld) [#/Vol] 3.22 10*3/uL Normal 1.45-7.50 [facility] Comment on above: Order Comment: Speci men Type: BLOOD SPECIMENOrdering Facility: [facility] Address: [address] [place] [address] Performed By: #### 5 7021-8 ####[facility] LABCLIA [id number] [place] [address] [place] Neutrophils/100 WBC (Bld) 53.1 % Normal [facility] Comment on above: Order Comment: Speci men Type: BLOOD SPECIMENOrdering Facility: [facility] Address: [address] [place] [address] Performed By: #### 5 7021-8 ####[facility] LABIA [id number] [place] [address] [place] Nucleated RBC (Bld) [#/Vol] 10*3/uL Normal <0.01 [facility] Comment on above: Order Comment: Speci men Type: BLOOD SPECIMENOrdering Facility: [facility] Address: [address] [place] [address] Performed By: #### 5 7021-8 ####[facility] LABIA [id number] [place] [address] [place] Nucleated RBC/100 WBC (Bld) [Ratio] 0.0 /100 WBC Normal [facility] Comment on above: Order Comment: Speci men Type: BLOOD SPECIMENOrdering Facility: [facility] Address: [address] [place] [address] Performed By: #### 5 7021-8 ####[facility] LABIA [id number] [place] [address] [place] Platelet mean volume (Bld) [Entitic vol] 11.9 fL Normal 9.0-12.7 [facility] Comment on above: Order Comment: Speci men Type: BLOOD SPECIMENOrdering Facility: [facility] Address: [address] [place] [address] Performed By: #### 5 7021-8 ####[facility] LABIA [id number] [place] [address] [place] Platelets (Bld) [#/Vol] 202 10*3/uL Normal 150-400 [facility] Comment on above: Order Comment: Speci men Type: BLOOD SPECIMENOrdering Facility: [facility] Address: [address] [place] [address] Performed By: #### 5 7021-8 ####[facility] LABCLIA [id number] [place] [id number] [place] RBC (Bld) [#/Vol] 4.66 10*6/uL Normal 4.20-6.00 [facility] Comment on above: Order Comment: Speci men Type: BLOOD SPECIMENOrdering Facility: [facility] Address: [address] [place] [address] Performed By: #### 5 7021-8 ####[facility] LABCLIA [id number] [place] [address] [place] WBC (Bld) [#/Vol] 6.06 10*3/uL Normal 3.70-11.00 [facility] Comment on above: Order Comment: Speci men Type: BLOOD SPECIMENOrdering Facility: [facility] Address: [address] [place] [address] Performed By: #### 5 7021-8 ####[facility] LABCLIA [id number] [address] [facility] CNOV[facility] 04-14-20[facility] -------- HERIBERTO PEÑALOZA ([id number]) 1950 M NFR Date Time Provider Department 04/14/24 3:00 PM [facility] During your visit today, we recorded the following information about you: Temperature Pulse Respiration Blood pressure 98.2 degrees 97/minute 18/minute 140/80 Weight 75.7 kg Ameya Agudelo MD 04/14/2024 4:25 PM Signed Patient presents with: Cough: Cough x 1 week HPI: Coughing since last week. His will be getting chemo so he wants to avoid getting her sick. Positive symptoms: cough, mid chest hurts with coughs but not with deep breaths, history of pneumonia, Negative symptoms: Shortness of breath, Wheezing, Sore throat, Nasal Congestion, Rhinorrhea, Fever, Chills, OTC: none Has a history of pneumonia. No history of asthma. MEDICATIONS: Current Outpatient Medications Medication Sig lisinopril (ZESTRIL) 10 mg tablet Take 1 tablet by mouth once daily. amLODIPine (NORVASC) 10 mg tablet Take 1 tablet by mouth once daily. ergocalciferol 50,000 unit capsule (VITAMIN D2, DRISDOL) Take 1 capsule by mouth one time a week. tamsulosin ER (FLOMAX) 0.4 mg cp24 Take 1 capsule by mouth daily at bedtime. folic acid 400 mcg tablet Take 1 tablet by mouth once daily. aspirin, enteric coated (ASPIR-81) 81 mg EC tablet Take 1 tablet by mouth once daily. CENTRUM SILVER TAB Take one(1) tablet daily. Current Facility-Administered Medications Medication Dose Route Frequency cyanocobalamin 1,000 mcg injection 1,000 mcg INTRAMUSCULAR q 1 MONTH ALLERGIES: ALLERGIES Allergen Reactions Polysporin [Bacitra* Rash VITALS: BP 140/80 Pulse 97 Temp 36.8 ?C (98.2 ?F) (Tympanic) Resp 18 Wt 75.7 kg (166 lb 14.2 oz) SpO2 97% BMI 23.78 kg/m? PHYSICAL EXAM: GEN: Pleasant, in no acute distress. HEENT: PERRL, EOMI, conjunctiva clear Sinuses: non-tender frontal sinus, non-tender maxillary sinuses Throat: moist mucous membranes, no erythema, no exudate Neck: supple, no thyromegaly, no lymphadenopathy HEART: regular rate and rhythm, no murmurs LUNGS: faint inspiratory wheezes and crackles which clear after coughing, raspy cough, no increased WOB CHEST: no sternal tenderness with palpation EXT: no clubbing, cyanosis, or edema ASSESSMENT/PLAN: 1. Acute cough - ICD9: 786.2, ICD10: R05.1 (primary diagnosis) 2. Pleural effusion - ICD9: 511.9, ICD10: J90 - XR CHEST 2V FRONTAL/LAT - small bilateral pleural effusions - COVID NAAT, UPPER RESPIRATORY, ROUTINE New effusion without identifiable cause. Discussed with PCP. Will draw labs and schedule follow up this week. - COMPREHENSIVE METABOLIC PANEL - NT PRO BNP - COMPLETE BLOOD COUNT AND DIFFERENTIAL - D dimer Follow up sooner with worsening cough, worsening shortness of breath, increasing chest pain, or late onset fever. Ameya Agudelo MD Allergies As of Date: 04/14/2024 Noted Allergy Reaction POLYSPORIN (BACITRACIN-POLYMYXIN *07/15/2007 2 - Rash Date Reviewed: 04/14/2024 Reviewed by: Sadie Toscano LPN - Fully Assessed Reason for Visit: Cough [28] Cmt: Cough x 1 week Primary Visit Diagnosis:Acute cough [R05.1] Other Visit Diagnosis:Pleural effusion [J90] Order(s):XR CHEST 2V FRONTAL/LAT [[id number]] Order #: [id number] FUTURE COVID NAAT, UPPER RESPIRATORY, ROUTINE [SQCOVID] Order #: [id number]. #:[id number] COMPREHENSIVE METABOLIC PANEL [SQCMP] Order #: [id number] FUTURE NT PRO BNP [SQNTBNP] Order #: [id number] FUTURE COMPLETE BLOOD COUNT AND DIFFERENTIAL [SQCBCDIF] Order #: [id number] FUTURE D-DIMER [SQDDMER] Order #: [id number] FUTURE Prescriptions as of 04/14/2024 - lisinopril (ZESTRIL) 10 mg tablet Take 1 tablet by mouth once daily. - amLODIPine (NORVASC) 10 mg tablet Take 1 tablet by mouth once daily. - ergocalciferol 50,000 unit capsule (VITAMIN D2, DRISDOL) Take 1 capsule by mouth one time a week. - tamsulosin ER (FLOMAX) 0.4 mg cp24 Take 1 capsule by mouth daily at bedtime. - folic acid 400 mcg tablet Take 1 tablet by mouth once daily. - aspirin, enteric coated (ASPIR-81) 81 mg EC tablet Take 1 tablet by mouth once daily. - CENTRUM SILVER TAB Take one(1) tablet daily. Facility-Administered Medications as of 04/14/2024 - cyanocobalamin 1,000 mcg injection Meds Comments as of 02/08/2015: Patient is not currently taking all prescribed medication due to recent surgery. Problem List As Of Date 04/14/2024 Noted Resolved PERNICIOUS ANEMIA [D51.0] 09/13/2005 Elevated prostate specific antigen (PSA) [R97.2*10/22/2006 04/04/2012 ANEMIA NOS [D64.9] 09/09/2007 H/O MALIGNANT MELANOMA/PERS HX MALIG SKIN MELAN*06/03/2007 BPH W URINARY OBS/LUTS [N40.1, N13.8] 08/15/2007 07/30/2014 Malignant neoplasm of stomach, unspecified site*09/04/2007 07/29/2012 Routine general medical examination at [facility]*02/01/2009 09/07/2015 Essential hypertension [I10] (more content not included)... Normal [facility] Comprehensive metabolic 2000 panelon 04-14-2024 Albumin [Mass/Vol] 4.0 g/dL Normal 3.9-4.9 [facility] Comment on above: Order Comment: Speci men Type: BLOOD SPECIMENOrdering Facility: [facility] Address: [address] [place] [address] Performed By: #### 3 3762-6, 90542-9 ####[facility] LABIA [id number] [place] [address] [place] ALP [Catalytic activity/Vol] 86 U/L Normal 38-113 [facility] Comment on above: Order Comment: Speci men Type: BLOOD SPECIMENOrdering Facility: [facility] Address: [address] [place] [address] Performed By: #### 3 3762-6, 87473-8 ####[facility] LABCLIA [id number] [place] [id number] [place] ALT [Catalytic activity/Vol] 14 U/L Normal 10-54 [facility] Comment on above: Order Comment: Speci men Type: BLOOD SPECIMENOrdering Facility: [facility] Address: [address] [place] [id number] Performed By: #### 3 3762-6, 36010-1 ####[facility] LABIA [id number] [address] [address] [place] Anion gap [Moles/Vol] 12 mmol/L Normal 8-15 [facility] Comment on above: Order Comment: Speci men Type: BLOOD SPECIMENOrdering Facility: [facility] Address: [address] [place] [address] Performed By: #### 3 3762-6, ####[facility] LABCLIA [id number] [place] [address] [place] AST [Catalytic activity/Vol] 17 U/L Normal 14-40 [facility] Comment on above: Order Comment: Speci men Type: BLOOD SPECIMENOrdering Facility: [facility] Address: [address] [place] [address] Performed By: #### 3 3762-6, 36682-5 ####[facility] LABCLIA [id number] [place] [address] [place] Bilirubin [Mass/Vol] 0.4 mg/dL Normal 0.2-1.3 [facility] Comment on above: Order Comment: Speci men Type: BLOOD SPECIMENOrdering Facility: [facility] Address: [address] [place] [address] Performed By: #### 3 3762-6, ####[facility] LABCLIA [id number] [place] [address] [place] Calcium [Mass/Vol] 8.9 mg/dL Normal 8.5-10.2 [facility] Comment on above: Order Comment: Speci men Type: BLOOD SPECIMENOrdering Facility: [facility] Address: [address] [place] [address] Performed By: #### 3 3762-6, ####[facility] LABCLIA [id number] [place] [address] [place] Chloride [Moles/Vol] 106 mmol/L Normal 98-107 [facility] Comment on above: Order Comment: Speci men Type: BLOOD SPECIMENOrdering Facility: [facility] Address: [address] [place] [address] Performed By: #### 3 3762-6, 83665-0 ####[facility] LABCLIA [id number] [place] [address] [place] CO2 [Moles/Vol] 24 mmol/L Normal 22-30 [facility] Comment on above: Order Comment: Speci men Type: BLOOD SPECIMENOrdering Facility: [facility] Address: [address] [place] [address] Performed By: #### 3 3762-6, 01401-5 ####[facility] LABCLIA [id number] [place] [address] [place] Creatinine [Mass/Vol] 1.18 mg/dL Normal 0.73-1.22 [facility] Comment on above: Order Comment: Speci men Type: BLOOD SPECIMENOrdering Facility: [facility] Address: [address] [place] [address] Performed By: #### 3 3762-6, 75501-1 ####[facility] LABCLIA [id number] [address] [place] Creatinine and Glomerular filtration rate.predicted panel (S/P/Bld) 65 mL/min/1.73m??? Normal >=60 [facility] Comment on above: Order Comment: Speci men Type: BLOOD SPECIMENOrdering Facility: [facility] Address: [address] [place] [address] Result Comment: Yaa mated Glomerular Filtration Rate (eGFR) is calculated using the 2020 CKD-EPI creatinine equation. This equation utilizes serum creatinine, sex, and age as parameters. The creatinine assay has traceable calibration to isotope dilution-mass spectrometry. Refer to KDIGO guidelines for clinical interpretation. In patients with unstable renal function, e.g. those with acute kidney injury, the eGFR may not accurately reflect actual GFR. Performed By: #### 3 3762-6, 92291-7 ####[facility] LABCLIA [id number] [address] [address] [place] Glucose [Mass/Vol] 79 mg/dL Normal 74-99 [facility] Comment on above: Order Comment: Speci men Type: BLOOD SPECIMENOrdering Facility: [facility] Address: [address] [place] [address] Result Comment: The [place] [employer] (ADA) provides guidance for cutoff values for fasting glucose and random glucose. The ADA defines fasting as no caloric intake for at least 8 hours. Fasting plasma glucose results between 100 to 125 mg/dL indicate increased risk for diabetes (prediabetes). Fasting plasma glucose results greater than or equal to 126 mg/dL meet the criteria for diagnosis of diabetes. In the absence of unequivocal hyperglycemia, results should be confirmed by repeat testing. In a patient with classic symptoms of hyperglycemia or hyperglycemic crisis, random plasma glucose results greater than or equal to 200 mg/dL meet the criteria for diagnosis of diabetes. Reference: Standards of Medical Care in Diabetes 2016, [place] [employer]. Diabetes Care. 2016.39(Suppl 1). Performed By: #### 3 3762-6, 62041-1 ####[facility] LABIA [id number] [place] [address] [place] Potassium [Moles/Vol] 4.5 mmol/L Normal 3.7-5.1 [facility] Comment on above: Order Comment: Speci men Type: BLOOD SPECIMENOrdering Facility: [facility] Address: [address] [place] [address] Performed By: #### 3 3762-6, 66848-8 ####[facility] LABIA [id number] [place] [address] [place] Protein [Mass/Vol] 6.9 g/dL Normal 6.3-8.0 [facility] Comment on above: Order Comment: Speci men Type: BLOOD SPECIMENOrdering Facility: [facility] Address: [address] [place] [address] Performed By: #### 3 3762-6, 80359-6 ####[facility] LABCLIA [id number] [place] [address] [place] Sodium [Moles/Vol] 142 mmol/L Normal 136-144 [facility] Comment on above: Order Comment: Speci men Type: BLOOD SPECIMENOrdering Facility: [facility] Address: [address] [place] [address] Performed By: #### 3 3762-6, 56033-7 ####[facility] LABCLIA [id number] [place] [address] [place] Urea nitrogen [Mass/Vol] 18 mg/dL Normal 9-24 [facility] Comment on above: Order Comment: Speci men Type: BLOOD SPECIMENOrdering Facility: [facility] Address: [address] [place] [address] Performed By: #### 3 3762-6, 14384-6 ####[facility] LABIA [id number] [place] [address] [place] D dimer FEU PPP-mCncon 04-14 Fibrin D-dimer FEU (PPP) [Mass/Vol] 740 ng/mL FEU High <500 [facility] Comment on above: Order Comment: Speci men Type: BLOOD SPECIMENOrdering Facility: [facility] Address: [address] [place] [address] Result Comment: Peyton en Plasma Aliquot Performed By: #### 4 8065-7 ####[facility] LABCLIA [id number] [place] [address] [place] Fibrin D-dimer FEU (PPP) [Ma ss/Vol]on 04-14-2024 D DIMER AGE-RELATED CUTOFF 730 ng/mL FEU Normal [facility] Comment on above: Order Comment: Speci men Type: BLOOD SPECIMENOrdering Facility: [facility] Address: [address] [place] [address] Performed By: #### 4 8065-7 ####[facility] LABCLIA [id number] [address] [place] NT-proBNP SerPl-ncon 04-14 Natriuretic peptide.B prohormone N-Terminal [Mass/Vol] 218 pg/mL High <125 [facility] Comment on above: Order Comment: Speci men Type: BLOOD SPECIMENOrdering Facility: [facility] Address: [address] [place] [address] Performed By: #### 3 3762-6, 78646-4 ####[facility] [id number] [place] [address] [place] SARS-CoV-2 RNA Resp Ql CORAL+p robeon 04-14-2024 SARS-CoV-2 (COVID-19) RNA CORAL+probe Ql (Resp) COVID 19 RESULT: Detected The method used is RT-PCR or an equivalent NAAT method. Reference Range (the expected result in uninfected individuals): Not detected Normal [facility] Comment on above: Performed By: #### 9 4500-6 ####[facility] [id number] [place] [address] [place] XR CHEST 2V FRONTAL/LATon XR CHEST 2V FRONTAL/LAT * * *Final Report* * * DATE OF EXAM: Apr 14 2024 3:28PM WOX [id number] - XR CHEST 2V FRONTAL/LAT / PROCEDURE REASON: Acute cough * * * * Physician Interpretation * * * * EXAMINATION: CHEST RADIOGRAPH (2 VIEW FRONTAL and LATERAL) CLINICAL HISTORY: Acute cough MQ: XC2_6 EXAM DATE/TIME: 04/14/2024 3:28 PM COMPARISON: Chest x-ray on 01/11/2022 RESULT: Lines, tubes, and devices: None. Lungs and pleura: No consolidation. No lung mass. There appear to be bilateral small pleural effusions, visualized on lateral view. No pneumothorax identified. Cardiomediastinal silhouette: Normal cardiomediastinal silhouette. Bones and soft tissues: Unremarkable. IMPRESSION: Bilateral small pleural effusions. Licensed Psychologist: PSCB Transcribe Date/Time: Apr 14 2024 3:58P Dictated by : AZ MEDINA MD This examination was interpreted and the report reviewed and electronically signed by: AZ MEDINA MD on Apr 14 2024 3:58PM EST [id number] Normal [facility] XR Chest PA and Lateralon IMPRESSION: Bilateral small pleural effusions. Licensed Psychologist: JOVITA Transcribe Date/Time: Apr 14 2024 3:58P Dictated by : AZ MEDINA MD This examination was interpreted and the report reviewed and electronically signed by: AZ MEDINA MD on Apr 14 2024 3:58PM EST DIVISION OF RADIOLOGY * * *Final Report* * * DATE OF EXAM: Apr 14 2024 3:28PM WOX [id number] - XR CHEST 2V FRONTAL/LAT / PROCEDURE REASON: Acute cough * * * * Physician Interpretation * * * * EXAMINATION: CHEST RADIOGRAPH (2 VIEW FRONTAL & LATERAL) CLINICAL HISTORY: Acute cough MQ: XC2_6 EXAM DATE/TIME: 04/14/2024 3:28 PM COMPARISON: Chest x-ray on 01/11/2022 RESULT: Lines, tubes, and devices: None. Lungs and pleura: No consolidation. No lung mass. There appear to be bilateral small pleural effusions, visualized on lateral view. No pneumothorax identified. Cardiomediastinal silhouette: Normal cardiomediastinal silhouette. Bones and soft tissues: Unremarkable. DIVISION OF RADIOLOGY Provider, [facility] - 04/14/2024 * * *Final Report* * * DATE OF EXAM: Apr 14 2024 3:28PM WOX 5291 - XR CHEST 2V FRONTAL/LAT / PROCEDURE REASON: Acute cough * * * * Physician Interpretation * * * * EXAMINATION: CHEST RADIOGRAPH (2 VIEW FRONTAL & LATERAL) CLINICAL HISTORY: Acute cough MQ: XC2_6 EXAM DATE/TIME: 04/14/2024 3:28 PM COMPARISON: Chest x-ray on 01/11/2022 RESULT: Lines, tubes, and devices: None. Lungs and pleura: No consolidation. No lung mass. There appear to be bilateral small pleural effusions, visualized on lateral view. No pneumothorax identified. Cardiomediastinal silhouette: Normal cardiomediastinal silhouette. Bones and soft tissues: Unremarkable. IMPRESSION IMPRESSION: Bilateral small pleural effusions. Licensed Psychologist: JOVITA Transcribe Date/Time: Apr 14 2024 3:58P Dictated by : AZ MEDINA MD This examination was interpreted and the report reviewed and electronically signed by: AZ MEDINA MD on Apr 14 2024 3:58PM EST [facility] Radiology Study observation (narrative) [facility] XR Chest PA and LateralOrder ed By: Ccf Provider on 04-14-2024 [facility] Basic metabolic 2000 panelon 04-07-2024 Anion gap [Moles/Vol] 9 mmol/L Normal 8-15 [facility] Comment on above: Order Comment: Speci men Type: BLOOD SPECIMENOrdering Facility: [facility] Address: [address] [place] [address] Performed By: #### 2 4321-2 ####[facility] [id number] [place] [address] [place] Calcium [Mass/Vol] 8.9 mg/dL Normal 8.5-10.2 [facility] Comment on above: Order Comment: Speci men Type: BLOOD SPECIMENOrdering Facility: [facility] Address: [address] [place] [address] Performed By: #### 2 4321-2 ####[facility] [id number] [place] [address] [place] Chloride [Moles/Vol] 106 mmol/L Normal 98-107 [facility] Comment on above: Order Comment: Speci men Type: BLOOD SPECIMENOrdering Facility: [facility] Address: [address] [place] [address] Performed By: #### 2 4321-2 ####[facility] [id number] [place] [address] [place] CO2 [Moles/Vol] 25 mmol/L Normal 22-30 [facility] Comment on above: Order Comment: Speci men Type: BLOOD SPECIMENOrdering Facility: [facility] Address: [address] [place] [address] Performed By: #### 2 4321-2 ####[facility] KAILASHBONAPARTENCDilia [id number] [place] [address] [place] Creatinine [Mass/Vol] 0.90 mg/dL Normal 0.73-1.22 [facility] Comment on above: Order Comment: Speci men Type: BLOOD SPECIMENOrdering Facility: [facility] Address: [address] [place] [address] Performed By: #### 2 4321-2 ####[facility] [id number] [place] [address] [place] Creatinine and Glomerular filtration rate.predicted panel (S/P/Bld) 90 mL/min/1.73m??? Normal >=60 [facility] Comment on above: Order Comment: Speci men Type: BLOOD SPECIMENOrdering Facility: [facility] Address: [address] [place] [address] Result Comment: Yaa mated Glomerular Filtration Rate (eGFR) is calculated using the 2020 CKD-EPI creatinine equation. This equation utilizes serum creatinine, sex, and age as parameters. The creatinine assay has traceable calibration to isotope dilution-mass spectrometry. Refer to KDIGO guidelines for clinical interpretation. In patients with unstable renal function, e.g. those with acute kidney injury, the eGFR may not accurately reflect actual GFR. Performed By: #### 2 4321-2 ####[facility] [id number] [place] [address] [place] Glucose [Mass/Vol] 103 mg/dL High 74-99 [facility] Comment on above: Order Comment: Speci men Type: BLOOD SPECIMENOrdering Facility: [facility] Address: [address] [place] [address] Result Comment: The [place] [employer] Association (ADA) provides guidance for cutoff values for fasting glucose and random glucose. The ADA defines fasting as no caloric intake for at least 8 hours. Fasting plasma glucose results between 100 to 125 mg/dL indicate increased risk for diabetes (prediabetes). Fasting plasma glucose results greater than or equal to 126 mg/dL meet the criteria for diagnosis of diabetes. In the absence of unequivocal hyperglycemia, results should be confirmed by repeat testing. In a patient with classic symptoms of hyperglycemia or hyperglycemic crisis, random plasma glucose results greater than or equal to 200 mg/dL meet the criteria for diagnosis of diabetes. Reference: Standards of Medical Care in Diabetes 2016, [place] [employer]. Diabetes Care. 2016.39(Suppl 1). Performed By: #### 2 4321-2 ####[facility] MILLTOWNCLIA [id number] [place] [address] [place] Potassium [Moles/Vol] 3.7 mmol/L Normal 3.7-5.1 [facility] Comment on above: Order Comment: Speci men Type: BLOOD SPECIMENOrdering Facility: [facility] Address: [address] [place] [address] Performed By: #### 2 4321-2 ####[facility] [id number] [place] [address] [place] Sodium [Moles/Vol] 140 mmol/L Normal 136-144 [facility] Comment on above: Order Comment: Speci men Type: BLOOD SPECIMENOrdering Facility: [facility] Address: [address] [place] [address] Performed By: #### 2 4321-2 ####[facility]IT[facility]CL[facility] [id number] [place] [address] [place] Urea nitrogen [Mass/Vol] 16 mg/dL Normal 9-24 [facility] Comment on above: Order Comment: Speci men Type: BLOOD SPECIMENOrdering Facility: [facility] Address: [address] [place] [address] Performed By: #### 2 4321-2 ####[facility] [id number] [place] [address] [facility] CNNURSEon 04-07-2024 [facility] Nurse Visit (FAMPWS) -------- HERIBERTO PEÑALOZA ([id number]) 1950 M NFR Date Time Provider Department 04/07/24 9:45 AM [facility] During your visit today, we recorded the following information about you: Ramonita Trevino LPN 04/07/2024 9:20 AM Signed Patient presents for B-12 injection. Denies any problems at this time. Patient instructed on any SE of medication, verbalized understanding and agreed to proceed with treatment. Tolerated injection well. Ramonita Trevino LPN Referring Provider: PIYUSH RIVERA [[id number]] Allergies As of Date: 04/07/2024 Noted Allergy Reaction POLYSPORIN (BACITRACIN-POLYMYXIN *07/15/2007 2 - Rash Date Reviewed: 02/25/2024 Reviewed by: Fatou Rodriguez LPN - Fully Assessed Reason for Visit: B-12 Injection [247] Primary Visit Diagnosis:Pernicious anemia [D51.0] Prescriptions as of 04/07/2024 - lisinopril (ZESTRIL) 5 mg tablet Take 1 tablet by mouth once daily. - amLODIPine (NORVASC) 10 mg tablet Take 1 tablet by mouth once daily. - ergocalciferol 50,000 unit capsule (VITAMIN D2, DRISDOL) Take 1 capsule by mouth one time a week. - tamsulosin ER (FLOMAX) 0.4 mg cp24 Take 1 capsule by mouth daily at bedtime. - folic acid 400 mcg tablet Take 1 tablet by mouth once daily. - aspirin, enteric coated (ASPIR-81) 81 mg EC tablet Take 1 tablet by mouth once daily. - CENTRUM SILVER TAB Take one(1) tablet daily. Facility-Administered Medications as of 04/07/2024 - cyanocobalamin 1,000 mcg injection Meds Comments as of 02/08/2015: Patient is not currently taking all prescribed medication due to recent surgery. Problem List As Of Date 04/07/2024 Noted Resolved PERNICIOUS ANEMIA [D51.0] 09/13/2005 Elevated prostate specific antigen (PSA) [R97.2*10/22/2006 04/04/2012 ANEMIA NOS [D64.9] 09/09/2007 H/O MALIGNANT MELANOMA/PERS HX MALIG SKIN MELAN*06/03/2007 BPH W URINARY OBS/LUTS [N40.1, N13.8] 08/15/2007 07/30/2014 Malignant neoplasm of stomach, unspecified site*09/04/2007 07/29/2012 Routine general medical examination at [facility]*02/01/2009 09/07/2015 Essential hypertension [I10] 03/05/2009 Melanocytic Nevi/ Benign Neoplasm of Skin of Tr*06/18/2009 01/12/2017 NEVI FACE///Benign Neoplasm of Skin [D23.30] 06/18/2009 01/12/2017 Other Seborrheic Keratoses [L82.1] 06/18/2009 Solar Lentigines [L81.4] 06/18/2009 09/07/2015 Actnic Damage//Sun-Damaged Skin [L57.8] 06/18/2009 09/07/2015 H/O BCC//// of Other Malignant Neoplasm [Z85.82*06/18/2009 01/12/2017 Scar condition and fibrosis of skin [L90.5] 06/18/2009 09/07/2015 Bladder neck obstruction [N32.0] 08/05/2009 07/30/2014 Inguinal hernia [K40.90] 10/13/2010 02/23/2014 Vitamin D deficiency [E55.9] 07/31/2011 Irritated//Inflamed Seborrheic Keratosis [L82.0]03/05/2012 09/07/2015 Melanocytic Nevi of trunk: Junctional and Intra*03/05/2012 01/12/2017 Atypical nevus of abdominal wall [D22.5] 12/31/2012 01/12/2017 Melanocytic nevi of upper extremity or shoulder*12/31/2012 01/12/2017 Dermatofibroma of shoulder [D23.60] 12/31/2012 09/07/2015 BPH (benign prostatic hyperplasia) [N40.0] 07/30/2014 Elevated PSA [R97.20] 07/30/2014 Retroperitoneal mass [R19.00] 02/04/2015 09/07/2015 Venous insufficiency of both lower extremities *01/11/2022 Left leg weakness [R29.898] 07/14/2022 Raynaud's phenomenon without gangrene [I73.00] 07/14/2022 Encounter Status:Closed by RAMONITA TREVINO on 04/07/24 [facility] CNPNon 04-07-2024 CNPN Telephone (INTMWS) -------- HERIBERTO PEÑALOZA ([id number]) 1950 M NFR Date Time Provider Department 04/07/24 PIYUSH RIVERA INTMWS During your visit today, we recorded the following information about you: Pulse Blood pressure 73/minute 145/72 Ramonita Trevino LPN 04/07/2024 9:26 AM Signed Patient in for nurse visit for B-12 and had BP checked since starting Lisinopril 5mg daily. Manual Readin/72 Pulse: 68 BP Daniel average: 145/72 P: 73 Repeat BP Check: 154/70 P73 #1 150/73 P71 #2 145/72 P80 #3 146/73 P70 #4 143/71 P73 #5 132/71 P73 #6 Reason for blood pressure check - Medication adjustment Patient is: Taking medication as prescribed Yes Took medication today No If no, date medication last taken 04/05/24; states that he ran out of medication yesterday Experiencing side effects No Pt has been identified by name and birthdate: Yes Allergies reviewed: Yes Latex allergy: no. Medication - prescribed and OTC reviewed and updated: Yes Do you need any prescription refills prior to your next visit: No Health Maintenance: Reviewed and not up to date and provider notified ZHANNA Fullerquez, Froilan, MD 04/07/2024 1:48 PM Signed 1) Blood chemistry within normal limits. 2) Increase Lisinopril to 10 mg daily. Rx sent. 3) Continue amlodipine. 4) BP true with next B12 injection. Fatou Rodriguez LPN 04/07/2024 5:13 PM Signed Patient notified of below results/recommendations, verbalized understanding. Added BP daniel to next B-12 injection. Fatou Rodriguez LPN Allergies As of Date: 04/07/2024 Noted Allergy Reaction POLYSPORIN (BACITRACIN-POLYMYXIN *07/15/2007 2 - Rash Date Reviewed: 02/25/2024 Reviewed by: Fatou Rodriguez LPN - Fully Assessed Reason for Visit: Patient Update [1234] Primary Visit Diagnosis:Essential hypertension [I10] Order(s):lisinopril (ZESTRIL) 10 mg tabletTake 1 tablet by mouth once daily.Disp: 30 tabletRfl: 5 Prescriptions as of 04/07/2024 - lisinopril (ZESTRIL) 10 mg tablet Take 1 tablet by mouth once daily. - amLODIPine (NORVASC) 10 mg tablet Take 1 tablet by mouth once daily. - ergocalciferol 50,000 unit capsule (VITAMIN D2, DRISDOL) Take 1 capsule by mouth one time a week. - tamsulosin ER (FLOMAX) 0.4 mg cp24 Take 1 capsule by mouth daily at bedtime. - folic acid 400 mcg tablet Take 1 tablet by mouth once daily. - aspirin, enteric coated (ASPIR-81) 81 mg EC tablet Take 1 tablet by mouth once daily. - CENTRUM SILVER TAB Take one(1) tablet daily. Facility-Administered Medications as of 04/07/2024 - cyanocobalamin 1,000 mcg injection Meds Comments as of 02/08/2015: Patient is not currently taking all prescribed medication due to recent surgery. Problem List As Of Date 04/07/2024 Noted Resolved PERNICIOUS ANEMIA [D51.0] 09/13/2005 Elevated prostate specific antigen (PSA) [R97.2*10/22/2006 04/04/2012 ANEMIA NOS [D64.9] 09/09/2007 H/O MALIGNANT MELANOMA/PERS HX MALIG SKIN MELAN*06/03/2007 BPH W URINARY OBS/LUTS [N40.1, N13.8] 08/15/2007 07/30/2014 Malignant neoplasm of stomach, unspecified site*09/04/2007 07/29/2012 Routine general medical examination at [facility]*02/01/2009 09/07/2015 Essential hypertension [I10] 03/05/2009 Melanocytic Nevi/ Benign Neoplasm of Skin of Tr*06/18/2009 01/12/2017 NEVI FACE///Benign Neoplasm of Skin [D23.30] 06/18/2009 01/12/2017 Other Seborrheic Keratoses [L82.1] 06/18/2009 Solar Lentigines [L81.4] 06/18/2009 09/07/2015 Actnic Damage//Sun-Damaged Skin [L57.8] 06/18/2009 09/07/2015 H/O BCC//// of Other Malignant Neoplasm [Z85.82*06/18/2009 01/12/2017 Scar condition and fibrosis of skin [L90.5] 06/18/2009 09/07/2015 Bladder neck obstruction [N32.0] 08/05/2009 07/30/2014 Inguinal hernia [K40.90] 10/13/2010 02/23/2014 Vitamin D deficiency [E55.9] 07/31/2011 Irritated//Inflamed Seborrheic Keratosis [L82.0]03/05/2012 09/07/2015 Melanocytic Nevi of trunk: Junctional and Intra*03/05/2012 01/12/2017 Atypical nevus of abdominal wall [D22.5] 12/31/2012 01/12/2017 Melanocytic nevi of upper extremity or shoulder*12/31/2012 01/12/2017 Dermatofibroma of shoulder [D23.60] 12/31/2012 09/07/2015 BPH (benign prostatic hyperplasia) [N40.0] 07/30/2014 Elevated PSA [R97.20] 07/30/2014 Retroperitoneal mass [R19.00] 02/04/2015 09/07/2015 Venous insufficiency of both lower extremities *01/11/2022 Left leg weakness [R29.898] 07/14/2022 Raynaud's phenomenon without gangrene [I73.00] 07/14/2022 Prescriptions ordered this encounter Disp Refills Start End LISINOPRIL 10 MG TABLET 30 t* 5 04/07/2024 Route: ORAL Sig: Take 1 tablet by mouth once daily. Medications Discontinued During This Encounter Prescriptions - lisinopril (ZESTRIL) 5 mg tablet (Discontinued) Take 1 tablet by mouth once daily. Encounter Status:Closed by FATOU RODRIGUEZ on 04/07/24 [facility] 03-03-[address] [facility] Nurse Visit (FAMPWS) -------- HERIBERTO PEÑALOZA ([id number]) 1950 M NFR Date Time Provider Department 03/03/24 9:15 AM [facility] During your visit today, we recorded the following information about you: Ramonita Trevino LPN 03/03/2024 9:33 AM Signed Patient presents for B-12 injection. Denies any problems at this time. Patient instructed on any SE of medication, verbalized understanding and agreed to proceed with treatment. Tolerated injection well. Ramonita Trevino LPN Referring Provider: PIYUSH RIVERA [[id number]] Allergies As of Date: 03/03/2024 Noted Allergy Reaction POLYSPORIN (BACITRACIN-POLYMYXIN *07/15/2007 2 - Rash Date Reviewed: 02/25/2024 Reviewed by: Fatou Rodriguez LPN - Fully Assessed Reason for Visit: B-12 Injection [247] Primary Visit Diagnosis:Pernicious anemia [D51.0] Prescriptions as of 03/03/2024 - amLODIPine (NORVASC) 10 mg tablet Take 1 tablet by mouth once daily. - ergocalciferol 50,000 unit capsule (VITAMIN D2, DRISDOL) Take 1 capsule by mouth one time a week. - tamsulosin ER (FLOMAX) 0.4 mg cp24 Take 1 capsule by mouth daily at bedtime. - folic acid 400 mcg tablet Take 1 tablet by mouth once daily. - aspirin, enteric coated (ASPIR-81) 81 mg EC tablet Take 1 tablet by mouth once daily. - CENTRUM SILVER TAB Take one(1) tablet daily. Facility-Administered Medications as of 03/03/2024 - cyanocobalamin 1,000 mcg injection Meds Comments as of 02/08/2015: Patient is not currently taking all prescribed medication due to recent surgery. Problem List As Of Date 03/03/2024 Noted Resolved PERNICIOUS ANEMIA [D51.0] 09/13/2005 Elevated prostate specific antigen (PSA) [R97.2*10/22/2006 04/04/2012 ANEMIA NOS [D64.9] 09/09/2007 H/O MALIGNANT MELANOMA/PERS HX MALIG SKIN MELAN*06/03/2007 BPH W URINARY OBS/LUTS [N40.1, N13.8] 08/15/2007 07/30/2014 Malignant neoplasm of stomach, unspecified site*09/04/2007 07/29/2012 Routine general medical examination at [facility]*02/01/2009 09/07/2015 Essential hypertension [I10] 03/05/2009 Melanocytic Nevi/ Benign Neoplasm of Skin of Tr*06/18/2009 01/12/2017 NEVI FACE///Benign Neoplasm of Skin [D23.30] 06/18/2009 01/12/2017 Other Seborrheic Keratoses [L82.1] 06/18/2009 Solar Lentigines [L81.4] 06/18/2009 09/07/2015 Actnic Damage//Sun-Damaged Skin [L57.8] 06/18/2009 09/07/2015 H/O BCC//// of Other Malignant Neoplasm [Z85.82*06/18/2009 01/12/2017 Scar condition and fibrosis of skin [L90.5] 06/18/2009 09/07/2015 Bladder neck obstruction [N32.0] 08/05/2009 07/30/2014 Inguinal hernia [K40.90] 10/13/2010 02/23/2014 Vitamin D deficiency [E55.9] 07/31/2011 Irritated//Inflamed Seborrheic Keratosis [L82.0]03/05/2012 09/07/2015 Melanocytic Nevi of trunk: Junctional and Intra*03/05/2012 01/12/2017 Atypical nevus of abdominal wall [D22.5] 12/31/2012 01/12/2017 Melanocytic nevi of upper extremity or shoulder*12/31/2012 01/12/2017 Dermatofibroma of shoulder [D23.60] 12/31/2012 09/07/2015 BPH (benign prostatic hyperplasia) [N40.0] 07/30/2014 Elevated PSA [R97.20] 07/30/2014 Retroperitoneal mass [R19.00] 02/04/2015 09/07/2015 Venous insufficiency of both lower extremities *01/11/2022 Left leg weakness [R29.898] 07/14/2022 Raynaud's phenomenon without gangrene [I73.00] 07/14/2022 Encounter Status:Closed by RAMONITA TREVINO on 03/03/24 [facility] C[facility] Tele[facility] (INTMWS) -------- HERIBERTO PEÑALOZA ([id number]) 1950 M NFR Date Time Provider Department 03/03/24 PIYUSH RIVERA INTWS During your visit today, we recorded the following information about you: Blood pressure 146/73 Ramonita Trevino LPN 03/03/2024 10:28 AM Signed Patient was in office for B-12 administration. Did check BP before he left with reading of 146/73 d/t recent elevation in office. Patient requesting further instruction. ZHANNA Fuller Victor H, MD 03/03/2024 4:17 PM Signed Add LISINOPRIL 5 mg daily to amlodipine. BP true with next B12 shot. Non fasting BMP with next B12 shot to monitor electrolytes, kidney function on new medication. Make August 2024 follow up in person, not video. Fatou Rodriguez LPN 03/03/2024 4:45 PM Signed Patient notified of below recommendation, verbalized understanding. BP daniel added to next B-12 injection. 08/28/2024 appt changed to yuki. Fatou Rodriguez LPN Allergies As of Date: 03/03/2024 Noted Allergy Reaction POLYSPORIN (BACITRACIN-POLYMYXIN *07/15/2007 2 - Rash Date Reviewed: 02/25/2024 Reviewed by: Fatou Rodriguez LPN - Fully Assessed Reason for Visit: Patient Update [1234] Primary Visit Diagnosis:Essential hypertension [I10] Order(s):lisinopril (ZESTRIL) 5 mg tabletTake 1 tablet by mouth once daily.Disp: 30 tabletRfl: 5 BASIC METABOLIC PANEL [SQBMP] Order #: [id number] FUTURE Prescriptions as of 03/03/2024 - lisinopril (ZESTRIL) 5 mg tablet Take 1 tablet by mouth once daily. - amLODIPine (NORVASC) 10 mg tablet Take 1 tablet by mouth once daily. - ergocalciferol 50,000 unit capsule (VITAMIN D2, DRISDOL) Take 1 capsule by mouth one time a week. - tamsulosin ER (FLOMAX) 0.4 mg cp24 Take 1 capsule by mouth daily at bedtime. - folic acid 400 mcg tablet Take 1 tablet by mouth once daily. - aspirin, enteric coated (ASPIR-81) 81 mg EC tablet Take 1 tablet by mouth once daily. - CENTRUM SILVER TAB Take one(1) tablet daily. Facility-Administered Medications as of 03/03/2024 - cyanocobalamin 1,000 mcg injection Meds Comments as of 02/08/2015: Patient is not currently taking all prescribed medication due to recent surgery. Problem List As Of Date 03/03/2024 Noted Resolved PERNICIOUS ANEMIA [D51.0] 09/13/2005 Elevated prostate specific antigen (PSA) [R97.2*10/22/2006 04/04/2012 ANEMIA NOS [D64.9] 09/09/2007 H/O MALIGNANT MELANOMA/PERS HX MALIG SKIN MELAN*06/03/2007 BPH W URINARY OBS/LUTS [N40.1, N13.8] 08/15/2007 07/30/2014 Malignant neoplasm of stomach, unspecified site*09/04/2007 07/29/2012 Routine general medical examination at [facility]*02/01/2009 09/07/2015 Essential hypertension [I10] 03/05/2009 Melanocytic Nevi/ Benign Neoplasm of Skin of Tr*06/18/2009 01/12/2017 NEVI FACE///Benign Neoplasm of Skin [D23.30] 06/18/2009 01/12/2017 Other Seborrheic Keratoses [L82.1] 06/18/2009 Solar Lentigines [L81.4] 06/18/2009 09/07/2015 Actnic Damage//Sun-Damaged Skin [L57.8] 06/18/2009 09/07/2015 H/O BCC//// of Other Malignant Neoplasm [Z85.82*06/18/2009 01/12/2017 Scar condition and fibrosis of skin [L90.5] 06/18/2009 09/07/2015 Bladder neck obstruction [N32.0] 08/05/2009 07/30/2014 Inguinal hernia [K40.90] 10/13/2010 02/23/2014 Vitamin D deficiency [E55.9] 07/31/2011 Irritated//Inflamed Seborrheic Keratosis [L82.0]03/05/2012 09/07/2015 Melanocytic Nevi of trunk: Junctional and Intra*03/05/2012 01/12/2017 Atypical nevus of abdominal wall [D22.5] 12/31/2012 01/12/2017 Melanocytic nevi of upper extremity or shoulder*12/31/2012 01/12/2017 Dermatofibroma of shoulder [D23.60] 12/31/2012 09/07/2015 BPH (benign prostatic hyperplasia) [N40.0] 07/30/2014 Elevated PSA [R97.20] 07/30/2014 Retroperitoneal mass [R19.00] 02/04/2015 09/07/2015 Venous insufficiency of both lower extremities *01/11/2022 Left leg weakness [R29.898] 07/14/2022 Raynaud's phenomenon without gangrene [I73.00] 07/14/2022 Prescriptions ordered this encounter Disp Refills Start End LISINOPRIL 5 MG TABLET 30 t* 5 03/03/2024 Route: ORAL Sig: Take 1 tablet by mouth once daily. Encounter Status:Closed by FATOU RODRIGUEZ on 03/03/24 [facility] HERIBERTO PEÑALOZA ([id number]) 1950 M NFR Date Time Provider Department 02/26/24 PIYUSH RIVERA 4CQ During your visit today, we recorded the following information about you: Rosa Gray 02/26/2024 4:05 PM Signed Patient called to arrange his B 12 shot with you at 9 am on Mondays I see you are blocked for a mtg. Please call patient back. Ramonita Trevino LPN 02/27/2024 11:19 AM Signed Spoke with PSS regarding appt and recommendation to get pt scheduled. Ramonita Trevino LPN Allergies As of Date: 02/26/2024 Noted Allergy Reaction POLYSPORIN (BACITRACIN-POLYMYXIN *07/15/2007 2 - Rash Date Reviewed: 02/25/2024 Reviewed by: Fatou Rodriguez LPN - Fully Assessed Reason for Visit: Patient Question [5458] Prescriptions as of 02/27/2024 - amLODIPine (NORVASC) 10 mg tablet Take 1 tablet by mouth once daily. - ergocalciferol 50,000 unit capsule (VITAMIN D2, DRISDOL) Take 1 capsule by mouth one time a week. - tamsulosin ER (FLOMAX) 0.4 mg cp24 Take 1 capsule by mouth daily at bedtime. - folic acid 400 mcg tablet Take 1 tablet by mouth once daily. - aspirin, enteric coated (ASPIR-81) 81 mg EC tablet Take 1 tablet by mouth once daily. - CENTRUM SILVER TAB Take one(1) tablet daily. Facility-Administered Medications as of 02/27/2024 - cyanocobalamin 1,000 mcg injection Meds Comments as of 02/08/2015: Patient is not currently taking all prescribed medication due to recent surgery. Problem List As Of Date 02/26/2024 Noted Resolved PERNICIOUS ANEMIA [D51.0] 09/13/2005 Elevated prostate specific antigen (PSA) [R97.2*10/22/2006 04/04/2012 ANEMIA NOS [D64.9] 09/09/2007 H/O MALIGNANT MELANOMA/PERS HX MALIG SKIN MELAN*06/03/2007 BPH W URINARY OBS/LUTS [N40.1, N13.8] 08/15/2007 07/30/2014 Malignant neoplasm of stomach, unspecified site*09/04/2007 07/29/2012 Routine general medical examination at [facility]*02/01/2009 09/07/2015 Essential hypertension [I10] 03/05/2009 Melanocytic Nevi/ Benign Neoplasm of Skin of Tr*06/18/2009 01/12/2017 NEVI FACE///Benign Neoplasm of Skin [D23.30] 06/18/2009 01/12/2017 Other Seborrheic Keratoses [L82.1] 06/18/2009 Solar Lentigines [L81.4] 06/18/2009 09/07/2015 Actnic Damage//Sun-Damaged Skin [L57.8] 06/18/2009 09/07/2015 H/O BCC//// of Other Malignant Neoplasm [Z85.82*06/18/2009 01/12/2017 Scar condition and fibrosis of skin [L90.5] 06/18/2009 09/07/2015 Bladder neck obstruction [N32.0] 08/05/2009 07/30/2014 Inguinal hernia [K40.90] 10/13/2010 02/23/2014 Vitamin D deficiency [E55.9] 07/31/2011 Irritated//Inflamed Seborrheic Keratosis [L82.0]03/05/2012 09/07/2015 Melanocytic Nevi of trunk: Junctional and Intra*03/05/2012 01/12/2017 Atypical nevus of abdominal wall [D22.5] 12/31/2012 01/12/2017 Melanocytic nevi of upper extremity or shoulder*12/31/2012 01/12/2017 Dermatofibroma of shoulder [D23.60] 12/31/2012 09/07/2015 BPH (benign prostatic hyperplasia) [N40.0] 07/30/2014 Elevated PSA [R97.20] 07/30/2014 Retroperitoneal mass [R19.00] 02/04/2015 09/07/2015 Venous insufficiency of both lower extremities *01/11/2022 Left leg weakness [R29.898] 07/14/2022 Raynaud's phenomenon without gangrene [I73.00] 07/14/2022 Encounter Status:Closed by RAMONITA TREVINO on 02/27/24 Normal [facility] 25(OH)D3 SerPl-[facility] 2023 25-hydroxyvitamin D3 [Mass/Vol] 71.2 ng/mL Normal 31.0-80.0 [facility] Comment on above: Order Comment: Speci men Type: BLOOD SPECIMENOrdering Facility: [facility] Address: [address] [place] [address] Performed By: #### 1 989-3 ####[facility] LABCLIA [id number] [address] [place] CBC panel Auto (Bld)on 02-24 Erythrocyte distribution width (RBC) [Ratio] 14.5 % Normal 11.5-15.0 [facility] Comment on above: Order Comment: Speci men Type: BLOOD SPECIMENOrdering Facility: [facility] Address: [address] [place] [address] Performed By: #### 5 8410-2 ####[facility] [id number] [place] [address] [place] Hematocrit (Bld) [Volume fraction] 45.3 % Normal 39.0-51.0 [facility] Comment on above: Order Comment: Speci men Type: BLOOD SPECIMENOrdering Facility: [facility] Address: [address] [place] [address] Performed By: #### 5 8410-2 ####[facility] [id number] [place] [address] [place] Hemoglobin (Bld) [Mass/Vol] 14.3 g/dL Normal 13.0-17.0 [facility] Comment on above: Order Comment: Speci men Type: BLOOD SPECIMENOrdering Facility: [facility] Address: [address] [place] [address] Performed By: #### 5 8410-2 ####[facility] [id number] [place] [address] [place] MCH (RBC) [Entitic mass] 28.1 pg Normal 26.0-34.0 [facility] Comment on above: Order Comment: Speci men Type: BLOOD SPECIMENOrdering Facility: [facility] Address: [address] [place] [address] Performed By: #### 5 8410-2 ####[facility] [id number] [place] [address] [place] MCHC (RBC) [Mass/Vol] 31.6 g/dL Normal 30.5-36.0 [facility] Comment on above: Order Comment: Speci men Type: BLOOD SPECIMENOrdering Facility: [facility] Address: [address] [place] [address] Performed By: #### 5 8410-2 ####[facility] [id number] [place] [address] [place] MCV (RBC) [Entitic vol] 89.0 fL Normal 80.0-100.0 [facility] Comment on above: Order Comment: Speci men Type: BLOOD SPECIMENOrdering Facility: [facility] Address: [address] [place], [place] [address] Performed By: #### 5 8410-2 ####[facility] [id number] [place] [address] [place] Nucleated RBC (Bld) [#/Vol] 10*3/uL Normal <0.01 [facility] Comment on above: Order Comment: Speci men Type: BLOOD SPECIMENOrdering Facility: [facility] Address: [address] [place] [address] Performed By: #### 5 8410-2 ####[facility] KIRSTEN [id number] [place] [address] [place] Platelet mean volume (Bld) [Entitic vol] 11.9 fL Normal 9.0-12.7 [facility] Comment on above: Order Comment: Speci men Type: BLOOD SPECIMENOrdering Facility: [facility] Address: [address] [place] [address] Performed By: #### 5 8410-2 ####[facility] KAILASHBONAPARTENCDYLON [id number] [place] [address] [place] Platelets (Bld) [#/Vol] 157 10*3/uL Normal 150-400 [facility] Comment on above: Order Comment: Speci men Type: BLOOD SPECIMENOrdering Facility: [facility] Address: [address] [place] [address] Performed By: #### 5 8410-2 ####[facility]ITALNCSALMAA [id number] [place] [address] [place] RBC (Bld) [#/Vol] 5.09 10*6/uL Normal 4.20-6.00 [facility] Comment on above: Order Comment: Speci men Type: BLOOD SPECIMENOrdering Facility: [facility] Address: [address] [place] [address] Performed By: #### 5 8410-2 ####[facility] [id number] [place] [address] [place] WBC (Bld) [#/Vol] 5.83 10*3/uL Normal 3.70-11.00 [facility] Comment on above: Order Comment: Speci men Type: BLOOD SPECIMENOrdering Facility: [facility] Address: [address] [place], [place] [address] Performed By: #### 5 8410-2 ####[facility] ANDRY [facility]ER[facility] HOSPITALDYLON [id number] [place] [id number] [facility] CNOVon 02-25-2024 CNOV Office Visit (INTMWS ) -------- HERIBERTO PEÑALOZA ([id number]) 1950 M NFR Date Time Provider Department 02/25/24 4:40 PM PIYUSH RIVERA INTMWS During your visit today, we recorded the following information about you: Temperature Pulse Respiration Blood pressure 98 degrees 69/minute 20/minute 156/74 Weight Height 74.8 kg 1.784 m Piyush Rivera MD 02/25/2024 5:55 PM Signed Heriberto Peñaloza is a 73 year old male here for a Medicare wellness visit. Medicare Health Risk Assessment General Health Very good Exercise: Minutes/Day 30 min Exercise: Days/Week 2 days Alcohol: Daily Use 4 or more times a week Alcohol: Drinks/Day 1 or 2 Alcohol: 6 or more drinks Never Feel off balance No Concerns: Teeth/Dentures No Concerns: Sexual function No Troubled by feelings Stressed Frequency: Eating healthy diet More than half the days ADLs requiring help None of the above Safety precautions in home/vehicle Yes Smoke, vape, chews tobacco No Difficulty hearing No Difficulty seeing No Current Providers Specialists: I have reviewed specialist-related care of the patient in the medical record. Current care team: Patient Care Team: Piyush Rivera MD as PCP - General (Internal Medicine) Outside specialists seen: Dr. Ermelinda Gregg, urology. Dr. Bob Campos, dermatology. Dr. Hurtado, ophthalmology. Medical/Family history review Reviewed and updated problem list, medical/surgical/family/ social history, medications, and allergies. Opioid use review Opioid Medications (last 90 days) No data to display Anxiety/Depression screening Recommendation: no further intervention at this time Cognitive screening Mini Cog Score: 5 Cognitive screening reviewed and No further action needed (score 3-5). Functional Observation Was the patient's Timed Up AND Go test unsteady or ? 12 seconds? No Advance Care Planning Patient did not wish or was not able to name a surrogate decision maker or provide an advance care plan Measurements BP 156/74 Pulse 69 Temp (Src) 98 (Temporal) Resp 20 Ht 5' 10.25 (1.78m) Wt 165 lb (74.8kg) BMI 23.52 kg/(m2). Vision Screening: Follows with optometry/ophthalmology Right: 20/40 Left: 20/ 20 Both: 20/30 Assessment/Plan Medicare annual wellness visit, subsequent (Z00.00) - Counseled on healthy diet and regular exercise - Fall avoidance information provided - Personalized prevention plan provided - Covid booster recommended. Piyush Rivera MD 02/25/2024 5:55 PM Signed This note was created using [employer]. Subjective Heriberto Peñaloza is a 73 year old male. He was dealing with some stressors, but overall felt well. His hypertension was elevated today. His labs were pending. Review of Systems Constitutional: Negative for fatigue and unexpected weight change. Respiratory: Negative for chest tightness and shortness of breath. Cardiovascular: Negative for chest pain, palpitations and leg swelling. Gastrointestinal: Negative for abdominal pain. Musculoskeletal: Left thumb normal. Neurological: Positive for numbness. Negative for dizziness and headaches. Numbness, tingling of left thumb. ACTIVE PROBLEM LIST Pernicious Anemia H/O MALIGNANT MELANOMA/PERS HX MALIG SKIN MELANOMA Essential Hypertension Other Seborrheic Keratoses Vitamin D Deficiency Bph (Benign Prostatic Hyperplasia) Elevated Psa Venous Insufficiency of Both Lower Extremities Left Leg Weakness Raynaud's Phenomenon Without Gangrene Current Outpatient Medications Medication Sig amLODIPine (NORVASC) 10 mg tablet Take 1 tablet by mouth once daily. ergocalciferol 50,000 unit capsule (VITAMIN D2, DRISDOL) Take 1 capsule by mouth one time a week. tamsulosin ER (FLOMAX) 0.4 mg cp24 Take 1 capsule by mouth daily at bedtime. folic acid 400 mcg tablet Take 1 tablet by mouth once daily. aspirin, enteric coated (ASPIR-81) 81 mg EC tablet Take 1 tablet by mouth once daily. CENTRUM SILVER TAB Take one(1) tablet daily. Current Facility-Administered Medications Medication Dose Route Frequency cyanocobalamin 1,000 mcg injection 1,000 mcg INTRAMUSCULAR q 1 MONTH Objective BP 156/74 (BP Site: Left Arm, BP Position: Sitting, BP Cuff Size: Large Adult) Pulse 69 Temp 36.7 ?C (98 ?F) (Temporal) Resp 20 Ht 178.4 cm (5' 10.25) Wt 74.8 kg (165 lb) BMI 23.51 kg/m? Physical Exam Constitutional: Appearance: He is not ill-appearing. Cardiovascular: Rate and Rhythm: Normal rate and regular rhythm. Heart sounds: No murmur heard. No gallop. Pulmonary: Effort: No respiratory distress. Breath sounds: No wheezing or rales. Abdominal: Palpations: Abdomen is soft. Tenderness: There is no abdominal tenderness. Musculoskeletal: Right lower leg: No edema. Left lower leg: No edema. Comments: Left leg in compression stocking. Neurological: Mental Status: He is alert. (more content not included)... Normal [facility] Comprehensive metabolic 2000 panelon 02-25-2024 Albumin [Mass/Vol] 3.9 g/dL Normal 3.9-4.9 [facility] Comment on above: Order Comment: Speci men Type: BLOOD SPECIMENOrdering Facility: [facility] Address: [address] [place] [address] Performed By: #### 2 4323-8 ####[facility] [id number] [place] [address] [place] ALP [Catalytic activity/Vol] 89 U/L Normal 38-113 [facility] Comment on above: Order Comment: Speci men Type: BLOOD SPECIMENOrdering Facility: [facility] Address: [address] [place] [address] Performed By: #### 2 4323-8 ####[facility] [id number] [place] [address] [place] ALT [Catalytic activity/Vol] 10 U/L Normal 10-54 [facility] Comment on above: Order Comment: Speci men Type: BLOOD SPECIMENOrdering Facility: [facility] Address: [address] [place] [address] Performed By: #### 2 4323-8 ####[facility] ANDRY MILLTOWNCLIA [id number] [place] [address] [place] Anion gap [Moles/Vol] 9 mmol/L Normal 8-15 [facility] Comment on above: Order Comment: Speci men Type: BLOOD SPECIMENOrdering Facility: [facility] Address: [address] [place] [address] Performed By: #### 2 4323-8 ####[facility] MILLWNCLIA [id number] [place] [address] [place] AST [Catalytic activity/Vol] 15 U/L Normal 14-40 [facility] Comment on above: Order Comment: Speci men Type: BLOOD SPECIMENOrdering Facility: [facility] Address: [address] [place] [address] Performed By: #### 2 4323-8 ####[facility] MILLTOWNCLIA [id number] [place] [address] [place] Bilirubin [Mass/Vol] 0.7 mg/dL Normal 0.2-1.3 [facility] Comment on above: Order Comment: Speci men Type: BLOOD SPECIMENOrdering Facility: [facility] Address: [address] [place] [address] Performed By: #### 2 4323-8 ####[facility] MILLTOWNCLIA [id number] [place] [address] [place] Calcium [Mass/Vol] 8.9 mg/dL Normal 8.5-10.2 [facility] Comment on above: Order Comment: Speci men Type: BLOOD SPECIMENOrdering Facility: [facility] Address: [address] [place] [address] Performed By: #### 2 4323-8 ####[facility] [id number] [place] [address] [place] Chloride [Moles/Vol] 107 mmol/L Normal 98-107 [facility] Comment on above: Order Comment: Speci men Type: BLOOD SPECIMENOrdering Facility: [facility] Address: [address] [place] [address] Performed By: #### 2 4323-8 ####[facility] [id number] [place] [address] [place] CO2 [Moles/Vol] 22 mmol/L Normal 22-30 [facility] Comment on above: Order Comment: Speci men Type: BLOOD SPECIMENOrdering Facility: [facility] Address: [address] [place] [address] Performed By: #### 2 4323-8 ####[facility] [id number] [place] [address] [place] Creatinine [Mass/Vol] 0.97 mg/dL Normal 0.73-1.22 [facility] Comment on above: Order Comment: Speci men Type: BLOOD SPECIMENOrdering Facility: [facility] Address: [address] [place] [address] Performed By: #### 2 4323-8 ####[facility] [id number] [place] [address] [place] Creatinine and Glomerular filtration rate.predicted panel (S/P/Bld) 82 mL/min/1.73m??? Normal >=60 [facility] Comment on above: Order Comment: Speci men Type: BLOOD SPECIMENOrdering Facility: [facility] Address: [address] [place] [address] Result Comment: Yaa mated Glomerular Filtration Rate (eGFR) is calculated using the 2020 CKD-EPI creatinine equation. This equation utilizes serum creatinine, sex, and age as parameters. The creatinine assay has traceable calibration to isotope dilution-mass spectrometry. Refer to KDIGO guidelines for clinical interpretation. In patients with unstable renal function, e.g. those with acute kidney injury, the eGFR may not accurately reflect actual GFR. Performed By: #### 2 4323-8 ####[facility] [id number] [place] [address] [place] Glucose [Mass/Vol] 102 mg/dL High 74-99 [facility] Comment on above: Order Comment: Speci men Type: BLOOD SPECIMENOrdering Facility: [facility] Address: [address] [place] [address] Result Comment: The [place] Diabetes Association (ADA) provides guidance for cutoff values for fasting glucose and random glucose. The ADA defines fasting as no caloric intake for at least 8 hours. Fasting plasma glucose results between 100 to 125 mg/dL indicate increased risk for diabetes (prediabetes). Fasting plasma glucose results greater than or equal to 126 mg/dL meet the criteria for diagnosis of diabetes. In the absence of unequivocal hyperglycemia, results should be confirmed by repeat testing. In a patient with classic symptoms of hyperglycemia or hyperglycemic crisis, random plasma glucose results greater than or equal to 200 mg/dL meet the criteria for diagnosis of diabetes. Reference: Standards of Medical Care in Diabetes 2016, [place] Diabetes Association. Diabetes Care. 2016.39(Suppl 1). Performed By: #### 2 4323-8 ####[facility] [id number] [place] [address] [place] Potassium [Moles/Vol] 3.8 mmol/L Normal 3.7-5.1 [facility] Comment on above: Order Comment: Richard bruno Type: BLOOD SPECIMENOrdering Facility: [facility] Address: [address] [place] [address] Performed By: #### 2 4323-8 ####[facility] [id number] [place] [address] [place] Protein [Mass/Vol] 6.5 g/dL Normal 6.3-8.0 [facility] Comment on above: Order Comment: Speci men Type: BLOOD SPECIMENOrdering Facility: [facility] Address: [address] [place] [address] Performed By: #### 2 4323-8 ####[facility] [id number] [place] [address] [place] Sodium [Moles/Vol] 138 mmol/L Normal 136-144 [facility] Comment on above: Order Comment: Speci men Type: BLOOD SPECIMENOrdering Facility: [facility] Address: [address] [place] [address] Performed By: #### 2 4323-8 ####[facility] [id number] [place] [address] [place] Urea nitrogen [Mass/Vol] 22 mg/dL Normal 9-24 [facility] Comment on above: Order Comment: Speci men Type: BLOOD SPECIMENOrdering Facility: [facility] Address: [address] [place] [address] Performed By: #### 2 4323-8 ####[facility] [id number] [place] [address] [place] HbA1c (Bld)on 02-25-2024 Average glucose Estimated from glycated hemoglobin (Bld) [Mass/Vol] 114 mg/dL Normal [facility] Comment on above: Order Comment: Speci men Type: BLOOD SPECIMENOrdering Facility: [facility] Address: [address] [place] [address] Result Comment: eAG: (Estimated average glucose) is a calculated value from HgbA1c and is patient representative of the average blood glucose level in the last 2-3 month period. Performed By: #### 5 5454-3 ####[facility] LABCLIA [id number] [place] [address] [place] HbA1c (Bld) [Mass fraction] 5.6 % Normal 4.3-5.6 [facility] Comment on above: Order Comment: Speci men Type: BLOOD SPECIMENOrdering Facility: [facility] Address: [address] [place] [address] Result Comment: Amer [place] Diabetes Association guidelines indicate that patients with HgbA1c in the range 5.7-6.4% are at increased risk for development of diabetes, and intervention by lifestyle modification may be beneficial. HgbA1c greater or equal to 6.5% is considered diagnostic of diabetes. Performed By: #### 5 5454-3 ####[facility] LABCLIA [id number] [address] OF [place] Lipid 1996 panelon 4 Cholesterol [Mass/Vol] 155 mg/dL Normal <200 [facility] Comment on above: Order Comment: Richard bruno Type: BLOOD SPECIMENOrdering Facility: [facility] Address: [address] [place] [address] Result Comment: <200 mg/dL, Desirable 200-239 mg/dL, Borderline high >239 mg/dL, High Performed By: #### 2 132-9 ####[facility] LABCLIA [id number] [address] [place]#### [address]-6 ####[facility] LABCLIA [id number] [address] OF [facility] [id number] [place] [address] [place] Cholesterol in HDL [Mass/Vol] 64 mg/dL Normal >39 [facility] Comment on above: Order Comment: Richard bruno Type: BLOOD SPECIMENOrdering Facility: [facility] Address: [address] [place] [address] Result Comment: 40-5 9 mg/dL, Acceptable >59 mg/dL, High: Negative risk factor for coronary heart disease <40 mg/dL, Low: Positive risk factor for coronary heart disease Performed By: #### 2 132-9 ####[facility] LABCLIA [id number] [place] [address] [place]#### 49889-2 ####[facility] LABCLIA [id number] [address] [id number] [address] OF [facility] Cholesterol in LDL [Mass/Vol] 79 mg/dL Normal <100 [facility] Comment on above: Order Comment: Speci men Type: BLOOD SPECIMENOrdering Facility: [facility] Address: [address] [place] [address] Result Comment: <100 mg/dL, Optimal 100-129 mg/dL, Near optimal/above optimal 130-159 mg/dL, Borderline high 160-189 mg/dL, High >189 mg/dL, Very high Secondary prevention optimal LDL Cholesterol levels are recommended to be < 70 mg/dL Performed By: #### 2 132-9 ####[facility] LABCLIA [id number] [address] OF [facility]#### [address]30-9 ####[facility] LABCLIA [id number] [address] [id number] [address] OF [facility] Cholesterol in LDL/Cholesterol in HDL [Mass ratio] 1.23 {ratio} Normal <2.54 [facility] Comment on above: Order Comment: Richard men Type: BLOOD SPECIMENOrdering Facility: [facility] Address: [address] [place] [address] Result Comment: Refnik bills: 1. National Cholesterol Education Program ATP III Guideline At-A-Glance Quick Desk Reference: National Heart, Lung, and Blood [place]. National Institutes of Health. 2001: NIH Publication No. 01-3305. 2. An International Atherosclerosis Society position paper: global recommendations for the management of dyslipidemia: executive summary, Atherosclerosis. 2014: 232(2):410-413. Performed By: #### 2 132-9 ####[facility] LABCLIA [id number] [address] [address] [place]#### 27835-9 ####[facility] LABCLIA [id number] [address] [address] [facility] [id number] [place] [address] [place] Cholesterol in VLDL [Mass/Vol] 12 mg/dL Normal <30 [facility] Comment on above: Order Comment: Speci men Type: BLOOD SPECIMENOrdering Facility: [facility] Address: [address] [place] [address] Performed By: #### 2 132-9 ####[facility] LABCLIA [id number] [place] [address] [place]#### 87024-6 ####[facility] LABCLIA [id number] [address] [id number] [place] [address] [place] Cholesterol non HDL [Mass/Vol] 91 mg/dL Normal <130 [facility] Comment on above: Order Comment: Speci men Type: BLOOD SPECIMENOrdering Facility: [facility] Address: [address] [place] [address] Result Comment: <130 mg/dL, Optimal 130-159 mg/dL, Near optimal/above optimal 160-189 mg/dL, Borderline high 190-219 mg/dL, High >219 mg/dL, Very high Secondary prevention optimal non HDL Cholesterol levels are recommended to be <100 mg/dL Performed By: #### 2 132-9 ####[facility] LABCLIA [id number] [place] [id number] [place]#### 72027-8 ####[facility] LABCLIA [id number] [address] [id number] [place] [address] [place] Cholesterol.total/Chol esterol in HDL [Mass ratio] 2.42 {ratio} Normal <5.10 [facility] Comment on above: Order Comment: Speci men Type: BLOOD SPECIMENOrdering Facility: [facility] Address: [address] [place] [address] Performed By: #### 2 132-9 ####[facility] LABCLIA [id number] [place] [address] [place]#### 08070-6 ####[facility] LABCLIA [id number] [address] [id number] [place] [address] [place] FASTING TIME 12 hrs Normal [facility] Comment on above: Order Comment: Speci men Type: BLOOD SPECIMENOrdering Facility: [facility] Address: [address] [place] [address] Performed By: #### 2 132-9 ####[facility] LABCLIA [id number] [place] [address] [place]#### 28263-4 ####[facility] LABCLIA [id number] [place] [id number] [place] [facility] [id number] [place] [address] [place] Triglyceride [Mass/Vol] 61 mg/dL Normal <150 [facility] Comment on above: Order Comment: Speci men Type: BLOOD SPECIMENOrdering Facility: [facility] Address: [address] [place], [place] [address] Result Comment: <150 mg/dL, Normal 150-199 mg/dL, Borderline high 200-499 mg/dL, High >499 mg/dL, Very high Performed By: #### 2 132-9 ####[facility] LABIA [id number] [address] [place]#### [address]666-8 ####[facility] LABIA [id number] [address] [id number] [place] [address] [place] Vit B12 [facility] 02-24- 024 Cobalamin (Vitamin B12) [Mass/Vol] 378 pg/mL Normal 232-1245 [facility] Comment on above: Order Comment: Speci men Type: BLOOD SPECIMENOrdering Facility: [facility] Address: [address] [place] [address] Performed By: #### 2 132-9 ####[facility] LABIA [id number] [address]#### 97935-1 ####[facility] [id number] [address] [id number] [address] 02-04-[address] [facility] Nurse Visit (FAMPWS) -------- HERIBERTO PEÑALOZA ([id number]) 1950 M NFR Date Time Provider Department 02/04/24 9:15 AM [place] NURSE FAMPWS During your visit today, we recorded the following information about you: Ramonita Trevino LPN 02/04/2024 11:26 AM Signed Patient presents for B-12 injection. Denies any problems at this time. Patient instructed on any SE of medication, verbalized understanding and agreed to proceed with treatment. Tolerated injection well. Ramonita Trevino LPN Allergies As of Date: 02/04/2024 Noted Allergy Reaction POLYSPORIN (BACITRACIN-POLYMYXIN *07/15/2007 2 - Rash Date Reviewed: 05/25/2023 Reviewed by: Sadie Toscano LPN - Fully Assessed Reason for Visit: B-12 Injection [247] Primary Visit Diagnosis:Pernicious anemia [D51.0] Prescriptions as of 02/04/2024 - ergocalciferol 50,000 unit capsule (VITAMIN D2, DRISDOL) Take 1 capsule by mouth one time a week. - amLODIPine (NORVASC) 10 mg tablet Take 1 tablet by mouth once daily. - tamsulosin ER (FLOMAX) 0.4 mg cp24 Take 1 capsule by mouth daily at bedtime. - folic acid 400 mcg tablet Take 1 tablet by mouth once daily. - aspirin, enteric coated (ASPIR-81) 81 mg EC tablet Take 1 tablet by mouth once daily. - finasteride (PROSCAR) 5 mg tablet Take 1 tablet by mouth once daily. - CENTRUM SILVER TAB Take one(1) tablet daily. Facility-Administered Medications as of 02/04/2024 - cyanocobalamin 1,000 mcg injection Meds Comments as of 02/08/2015: Patient is not currently taking all prescribed medication due to recent surgery. Problem List As Of Date 02/04/2024 Noted Resolved PERNICIOUS ANEMIA [D51.0] 09/13/2005 Elevated prostate specific antigen (PSA) [R97.2*10/22/2006 04/04/2012 ANEMIA NOS [D64.9] 09/09/2007 H/O MALIGNANT MELANOMA/PERS HX MALIG SKIN MELAN*06/03/2007 BPH W URINARY OBS/LUTS [N40.1, N13.8] 08/15/2007 07/30/2014 Malignant neoplasm of stomach, unspecified site*09/04/2007 07/29/2012 Routine general medical examination at [facility]*02/01/2009 09/07/2015 Essential hypertension [I10] 03/05/2009 Melanocytic Nevi/ Benign Neoplasm of Skin of Tr*06/18/2009 01/12/2017 NEVI FACE///Benign Neoplasm of Skin [D23.30] 06/18/2009 01/12/2017 Other Seborrheic Keratoses [L82.1] 06/18/2009 Solar Lentigines [L81.4] 06/18/2009 09/07/2015 Actnic Damage//Sun-Damaged Skin [L57.8] 06/18/2009 09/07/2015 H/O BCC//// of Other Malignant Neoplasm [Z85.82*06/18/2009 01/12/2017 Scar condition and fibrosis of skin [L90.5] 06/18/2009 09/07/2015 Bladder neck obstruction [N32.0] 08/05/2009 07/30/2014 Inguinal hernia [K40.90] 10/13/2010 02/23/2014 Vitamin D deficiency [E55.9] 07/31/2011 Irritated//Inflamed Seborrheic Keratosis [L82.0]03/05/2012 09/07/2015 Melanocytic Nevi of trunk: Junctional and Intra*03/05/2012 01/12/2017 Atypical nevus of abdominal wall [D22.5] 12/31/2012 01/12/2017 Melanocytic nevi of upper extremity or shoulder*12/31/2012 01/12/2017 Dermatofibroma of shoulder [D23.60] 12/31/2012 09/07/2015 BPH (benign prostatic hyperplasia) [N40.0] 07/30/2014 Elevated PSA [R97.20] 07/30/2014 Retroperitoneal mass [R19.00] 02/04/2015 09/07/2015 Venous insufficiency of both lower extremities *01/11/2022 Left leg weakness [R29.898] 07/14/2022 Raynaud's phenomenon without gangrene [I73.00] 07/14/2022 Encounter Status:Closed by RAMONITA TREVINO on 02/04/24 Normal [facility] No Panel InformationOrdered By: Torsten Gregg on 05-07-2023 Prostate Specific Antigen Total 6.23 ng/mL 0.0-4.0 [facility] Comment on above: This test was perfor med using the TPSA assay method for theDimension chemistry system. Values obtained with differentassay methods cannot be used interchangably.When changing PSA assays in the course of monitoring apatient, additional sequential testing should be carriedout to confirm baseline values. Comprehensive metabolic 2000 panelon 02-09-2023 Albumin [Mass/Vol] 4.1 g/dL 3.9 - 4.9 g/dL [facility] ALP [Catalytic activity/Vol] 91 U/L 38 - 113 U/L [facility] ALT [Catalytic activity/Vol] 9 U/L Low 10 - 54 U/L [facility] Anion gap [Moles/Vol] 8 mmol/L Low 9 - 18 mmol/L [facility] AST [Catalytic activity/Vol] 13 U/L Low 14 - 40 U/L [facility] Bilirubin [Mass/Vol] 0.7 mg/dL 0.2 - 1 .3 mg/dL [facility] Calcium [Mass/Vol] 9.0 mg/dL 8.5 - 10. 2 mg/dL [facility] Chloride [Moles/Vol] 105 mmol/L 97 - 10 5 mmol/L [facility] CO2 [Moles/Vol] 27 mmol/L 22 - 30 mmol/L [facility] Creatinine [Mass/Vol] 1.06 mg/dL 0.73 - 1.22 mg/dL [facility] Estimated Glomerular Filtration Rate 75 mL/min/1.73m >=60 mL/min/1.73m [facility] Glucose [Mass/Vol] 166 mg/dL High 74 - 99 mg/dL [facility] Potassium [Moles/Vol] 3.8 mmol/L 3.7 - 5.1 mmol/L [facility] Protein [Mass/Vol] 6.3 g/dL 6.3 - 8.0 g/dL [facility] Sodium [Moles/Vol] 140 mmol/L 136 - 144 mmol/L [facility] Urea nitrogen [Mass/Vol] 20 mg/dL 9 - 24 mg/dL [facility] No Panel Informationon 04-20 Prostate Specific Antigen Total 6.14 ng/mL 0.0-4.0 [facility] Work Phone: Comment on above: This test was perfor med using the TPSA assay method for theDimension chemistry system. Values obtained with differentassay methods cannot be used interchangably.When changing PSA assays in the course of monitoring apatient, additional sequential testing should be carriedout to confirm baseline values. XR CHEST 2V FRONTAL/LATon [facility] XR Chest PA and Lateralon IMPRESSION: No acute radiographic abnormality. Licensed Psychologist: JOVITA Transcribe Date/Time: Jan 11 2022 9:50A Dictated by : CORNELL JAMISON MD This examination was interpreted and the report reviewed and electronically signed by: CORNELL JAMISON MD on Jan 11 2022 9:51AM EST ZZZ_DO_NOT_U _DIVISION OF RADIOLOGY * * *Final Report* * * DATE OF EXAM: Jan 11 2022 9:48AM WOX [id number] - XR CHEST 2V FRONTAL/LAT / PROCEDURE REASON: Wheezing * * * * Physician Interpretation * * * * EXAMINATION: CHEST RADIOGRAPH (2 VIEW FRONTAL & LATERAL) CLINICAL HISTORY: Wheezing MQ: XC2_6 EXAM DATE/TIME: 01/11/2022 9:48 AM COMPARISON: 08/24/2019 RESULT: Lines, tubes, and devices: None. Lungs and pleura: No consolidation. No lung mass. No pleural effusion. No pneumothorax. Cardiomediastinal silhouette: Stable cardiomediastinal silhouette. Bones and soft tissues: Unremarkable. ZZZ_DO_NOT_U _DIVISION OF RADIOLOGY Provider, [facility] - 01/11/2022 * * *Final Report* * * DATE OF EXAM: Jan 11 2022 9:48AM WOX [id number] - XR CHEST 2V FRONTAL/LAT / PROCEDURE REASON: Wheezing * * * * Physician Interpretation * * * * EXAMINATION: CHEST RADIOGRAPH (2 VIEW FRONTAL & LATERAL) CLINICAL HISTORY: Wheezing MQ: XC2_6 EXAM DATE/TIME: 01/11/2022 9:48 AM COMPARISON: 08/24/2019 RESULT: Lines, tubes, and devices: None. Lungs and pleura: No consolidation. No lung mass. No pleural effusion. No pneumothorax. Cardiomediastinal silhouette: Stable cardiomediastinal silhouette. Bones and soft tissues: Unremarkable. IMPRESSION IMPRESSION: No acute radiographic abnormality. Licensed Psychologist: JOVITA Transcribe Date/Time: Jan 11 2022 9:50A Dictated by : CORNELL JAMISON MD This examination was interpreted and the report reviewed and electronically signed by: CORNELL JAMISON MD on Jan 11 2022 9:51AM EST [facility] Radiology Study observation (narrative) [facility] XR Chest PA and LateralOrder ed By: [facility] Provider on 01-11-2022 [facility] Vital Signs Date Time Vital Sign Value Performing Clinician Facility 11-25-2024 08:18-0400 Body mass index (BMI) [Ratio] 23.51 kg/m2 [employer] DAMAGE PREVENTION COORDINATOR.FILM CUTTER Work Phone: [facility] 11-25-2024 08:18-0400 Body temperature 98.71 [degF] [employer] [facility] DAMAGE PREVENTION COORDINATOR.FILM CUTTER Work Phone: [facility] 11-25-2024 08:18-0400 Body weight 74.84 kg [employer] DAMAGE PREVENTION COORDINATOR.FILM CUTTER Work Phone: [facility] 11-25-2024 08:18-0400 Diastolic blood pressure 80 mm[Hg] [employer] DAMAGE PREVENTION COORDINATOR.FILM CUTTER Work Phone: [facility] 11-25-2024 08:18-0400 Heart rate 74 /min [employer] DAMAGE PREVENTION COORDINATOR.FILM CUTTER Work Phone: [facility] 11-25-2024 08:18-0400 Respiratory rate 14 /min Negra ShepardJu DAMAGE PREVENTION COORDINATOR.FILM CUTTER Work Phone: [facility] 11-25-2024 08:18-0400 SaO2% (BldA) [Mass fraction] 98 % [employer] DAMAGE PREVENTION COORDINATOR.FILM CUTTER Work Phone: [facility] 11-25-2024 08:18-0400 Systolic blood pressure 132 mm[Hg] [employer]ra Ju DAMAGE PREVENTION COORDINATOR.FILM CUTTER Work Phone: [facility] 08-28-2024 13:33-0500 Body mass index (BMI) [Ratio] 23.78 kg/m2 Piyush Rivera MD Work Phone: [facility] 08-28-2024 13:33-0500 Body temperature 98.2 [degF] Piyush Rivera MD Work Phone: [facility] 08-28-2024 13:33-0500 Body weight 75.7 kg Piyush Rivera MD Work Phone: [facility] 08-28-2024 13:33-0500 Diastolic blood pressure 68 mm[Hg] Piyush Rivera MD Work Phone: [facility] 08-28-2024 13:33-0500 Heart rate 72 /min Piyush Rivera MD Work Phone: [facility] 08-28-2024 13:33-0500 Respiratory rate 18 /min Piyush Rivera MD Work Phone: [facility] 08-28-2024 13:33-0500 Systolic blood pressure 118 mm[Hg] Piyush Rivera MD Work Phone: [facility] 07-07-2024 09:05-0500 Diastolic blood pressure 70 mm[Hg] Mi Nurse Work Phone: [facility] 07-07-2024 09:05-0500 Heart rate 83 /min Mi Nurse Work Phone: [facility] 07-07-2024 09:05-0500 Systolic blood pressure 135 mm[Hg] Mi Nurse Work Phone: [facility] 05-19-2024 15:00-0400 Diastolic blood pressure 72 mm[Hg] Piyush Rivera MD Work Phone: [facility] 05-19-2024 15:00-0400 Heart rate 71 /min Piyush Rivera MD Work Phone: [facility] 05-19-2024 15:00-0400 Systolic blood pressure 135 mm[Hg] Piyush Rivera MD Work Phone: [facility] 05-19-2024 14:56-0400 Body mass index (BMI) [Ratio] 23.59 kg/m2 Piyush Rivera MD Work Phone: [facility] 05-19-2024 14:56-0400 Body temperature 97 [degF] Piyush Rivera MD Work Phone: [facility] 05-19-2024 14:56-0400 Body weight 75.1 kg Piyush Rivera MD Work Phone: [facility] 05-19-2024 14:56-0400 SaO2% (BldA) [Mass fraction] 98 % Piyush Rivera MD Work Phone: [facility] 04-16-2024 08:30-0400 Diastolic blood pressure 78 mm[Hg] Piyush Rivera MD Work Phone: [facility] 04-16-2024 08:30-0400 Heart rate 69 /min Piyush Rivera MD Work Phone: [facility] 04-16-2024 08:30-0400 Systolic blood pressure 146 mm[Hg] Piyush Rivera MD Work Phone: [facility] 04-16-2024 08:29-0400 Body mass index (BMI) [Ratio] 23.12 kg/m2 Piyush Rivera MD Work Phone: [facility] 04-16-2024 08:29-0400 Body temperature 97.5 [degF] Piyush Rivera MD Work Phone: [facility] 04-16-2024 08:29-0400 Body weight 73.6 kg Piyush Rivera MD Work Phone: [facility] 04-16-2024 08:29-0400 Respiratory rate 20 /min Piyush Rivera MD Work Phone: [facility] 04-14-2024 14:54-0400 Body mass index (BMI) [Ratio] 23.78 kg/m2 Ameya Agudelo MD Work Phone: [facility] 04-14-2024 14:54-0400 Body temperature 98.2 [degF] Ameya Agudelo MD Work Phone: [facility] 04-14-2024 14:54-0400 Body weight 75.7 kg Ameya Agudelo MD Work Phone: [facility] 04-14-2024 14:54-0400 Diastolic blood pressure 80 mm[Hg] Ameya Agudelo MD Work Phone: [facility] 04-14-2024 14:54-0400 Heart rate 97 /min Ameya Agudelo MD Work Phone: [facility] 04-14-2024 14:54-0400 Respiratory rate 18 /min Ameya Agudelo MD Work Phone: [facility] 04-14-2024 14:54-0400 SaO2% (BldA) [Mass fraction] 97 % Ameya Agudelo MD Work Phone: [facility] 04-14-2024 14:54-0400 Systolic blood pressure 140 mm[Hg] Ameya Agudelo MD Work Phone: [facility] 04-07-2024 09:26-0400 Diastolic blood pressure 72 mm[Hg] Piyush Rivera MD Work Phone: [facility] Comment on above: BP Daniel average 04-07-2024 09:26-0400 Heart rate 73 /min Piyush Rivera MD Work Phone: [facility] 04-07-2024 09:26-0400 Systolic blood pressure 145 mm[Hg] Piyush Rivera MD Work Phone: [facility] Comment on above: BP Daniel average 03-03-2024 10:28-0400 Diastolic blood pressure 73 mm[Hg] Piyush Rivera MD Work Phone: [facility] 03-03-2024 10:28-0400 Systolic blood pressure 146 mm[Hg] Piyush Rivera MD Work Phone: [facility] 02-25-2024 16:46-0400 Diastolic blood pressure 74 mm[Hg] Piyush Rivera MD Work Phone: [facility] 02-25-2024 16:46-0400 Heart rate 69 /min Piyush Rivera MD Work Phone: [facility] 02-25-2024 16:46-0400 Systolic blood pressure 156 mm[Hg] Piyush Rivera MD Work Phone: [facility] 02-25-2024 16:35-0400 Body height 178.4 cm Piyush Rivera MD Work Phone: [facility] 02-25-2024 16:35-0400 Body mass index (BMI) [Ratio] 23.51 kg/m2 Piyush Rivera MD Work Phone: [facility] 02-25-2024 16:35-0400 Body temperature 98.01 [degF] Piyush Rivera MD Work Phone: [facility] 02-25-2024 16:35-0400 Body weight 74.84 kg Piyush Rivera MD Work Phone: [facility] 02-25-2024 16:35-0400 Respiratory rate 20 /min Piyush Rivera MD Work Phone: [facility] 05-25-2023 09:51-0400 Body temperature 97.11 [degF] Karey Athy PA-C Work Phone: [facility] 05-25-2023 09:51-0400 Body weight 77.2 kg Karey Athy PA-C Work Phone: [facility] 05-25-2023 09:51-0400 Diastolic blood pressure 70 mm[Hg] Karey Athy PA-C Work Phone: [facility] 05-25-2023 09:51-0400 Heart rate 80 /min Karey Athy PA-C Work Phone: [facility] 05-25-2023 09:51-0400 Respiratory rate 18 /min Karey Athy PA-C Work Phone: [facility] 05-25-2023 09:51-0400 SaO2% (BldA) [Mass fraction] 97 % Karey Athy PA-C Work Phone: [facility] 05-25-2023 09:51-0400 Systolic blood pressure 120 mm[Hg] Karey Staton PA-C Work Phone: [facility] 02-12-2023 13:25-0400 Body height 178.4 cm Piyush Rivera MD Work Phone: [facility] 02-12-2023 13:25-0400 Body weight 76.2 kg Piyush Rivera MD Work Phone: [facility] 02-12-2023 13:25-0400 Diastolic blood pressure 68 mm[Hg] Piyush Rivera MD Work Phone: [facility] 02-12-2023 13:25-0400 Heart rate 80 /min Piyush Rivera MD Work Phone: [facility] 02-12-2023 13:25-0400 Respiratory rate 16 /min Piyush Rivera MD Work Phone: [facility] 02-12-2023 13:25-0400 Systolic blood pressure 130 mm[Hg] Piyush Rivera MD Work Phone: [facility] 07-14-2022 10:19-0500 Diastolic blood pressure 66 mm[Hg] Piyush Rivera MD Work Phone: [facility] 07-14-2022 10:19-0500 Systolic blood pressure 132 mm[Hg] Piyush Rivera MD Work Phone: [facility] 01-11-2022 09:28-0400 Diastolic blood pressure 68 mm[Hg] Piyush Rivera MD Work Phone: [facility] 01-11-2022 09:28-0400 Systolic blood pressure 130 mm[Hg] Piyush Rivera MD Work Phone: [facility] 01-11-2022 08:50-0400 Body height 181.9 cm Piyush Rivera MD Work Phone: [facility] 01-11-2022 08:50-0400 Body temperature 97.9 [degF] Piyush Rivera MD Work Phone: [facility] 01-11-2022 08:50-0400 Body weight 78.02 kg Piyush Rivera MD Work Phone: [facility] 01-11-2022 08:50-0400 Heart rate 76 /min Piyush Rivera MD Work Phone: [facility] 01-11-2022 08:50-0400 Respiratory rate 12 /min Piyush Rivera MD Work Phone: [facility] Encounters Encounter Date Encounter Type Care Provider Facility Start: 02-02-2025 End: 02-02-2025 Nursing evaluation of patient and report Mi Nurse Work Phone: [facility] [place] Comment on above: Vitamin B12 deficien cy (Primary Dx) Start: 02-02-2025 End: 02-02-2025 ambulatory PIYUSH RIVERA Facility:[facility] Start: 01-08-[address] Torsten Gregg MD -Nuclear Medicine [facility] Work Phone: Start: 01-08-2025 End: 01-08-2025 ambulatory Torsten Gregg Facility:[facility] Start: 01-05-2025 End: 01-05-[address] Piyush Rivera MD Work Phone: [facility] Work Phone: Start: 01-05-2025 End: 01-05-[address] Torsten Gregg MD -Laboratory Specimen Work Phone: Start: 01-05-2025 End: 01-05-2025 ambulatory PIYUSH RIVERA Facility:[facility] Start: 01-05-2025 End: 01-05-2025 Nursing evaluation of patient and report Mi Nurse Work Phone: [facility] [place] Comment on above: Pernicious anemia (P rimary Dx) Start: 01-05-2025 End: 01-05-2025 ambulatory Torsten Gregg Facility:[facility] Start: 12-25-2024 End: 12-26-2024 Refill Piyush Rivera MD Work Phone: [facility] [place] Comment on above: Refill Request ([place] [facility] to local [facility]) Start: 12-25-2024 End: 12-25-[address] Torsten Gregg MD -[facility] Work Phone: Start: 12-25-2024 End: 12-25-2024 ambulatory Torsten Gregg Facility:[facility] Start: 12-02-2024 End: 12-02-2024 Nursing evaluation of patient and report Mi Nurse Work Phone: [facility] [place] Comment on above: Vitamin B12 deficien cy (Primary Dx) Start: 12-02-2024 End: 12-02-2024 ambulatory PIYUSH RIVERA Facility:[facility] Start: 11-25-2024 End: 11-25-2024 ambulatory NEGRA UGALDE Facility:[facility] Start: 11-25-2024 End: 11-25-2024 Patient encounter procedure Negra Ugalde DAMAGE PREVENTION COORDINATOR.FILM CUTTER Work Phone: [facility] [place] Comment on above: Viral URI with cough (Primary Dx) Start: 11-10-2024 End: 11-10-2024 ambulatory PIYUSH RIVERA Facility:[facility] Start: 11-06-2024 End: 11-06-[address] Piyush Rivera MD Work Phone: [facility] Work Phone: Start: 11-06-2024 End: 11-06-[address] Torsten Gregg MD -Laboratory Work Phone: Start: 11-06-2024 End: 11-06-2024 ambulatory Torsten Gregg Facility:[facility] Start: 10-28-2024 End: 10-28-[address] Piyush Rivera MD Work Phone: [facility] Work Phone: Start: 10-28-2024 End: 10-28-2024 Patient encounter procedure Michelle Ely -Laboratory Work Phone: Start: 10-28-2024 End: 10-28-2024 ambulatory Piyush Velascoz Facility:[facility] Start: 10-13-2024 End: 10-13-2024 ambulatory PIYUSH RIVERA Facility:[facility] Start: 10-13-2024 End: 10-13-2024 Nursing evaluation of patient and report Mi Nurse Work Phone: [facility] [place] Comment on above: Pernicious anemia (P rimary Dx) Start: 09-24-2024 End: 09-25-2024 Telephone encounter Piyush Rivera MD Work Phone: [facility] [place] Comment on above: Orders Start: 09-08-2024 End: 09-08-2024 ambulatory PIYUSH Naidu RIVERA Facility:[facility] Start: 09-08-2024 End: 09-08-2024 Nursing evaluation of patient and report Mi Nurse Work Phone: [facility] [place] Comment on above: Pernicious anemia (P rimary Dx) Start: 08-28-2024 End: 08-28-2024 ambulatory PIYUSH RIVERA Facility:[facility] Start: 08-28-2024 End: 08-28-2024 Office outpatient visit 15 minutes Piyush Rivera MD Work Phone: Internal [facility] [place] Comment on above: Essential hypertensi on (Primary Dx); Encounter for immunization; Pernicious anemia; Vitamin D deficiency Start: 08-11-2024 End: 08-11-2024 ambulatory PIYUSH MEJIAQUEZ Facility:[facility] Start: 08-11-2024 End: 08-11-2024 Nursing evaluation of patient and report Mi Nurse Work Phone: [facility] [place] Comment on above: Pernicious anemia (P rimary Dx) Start: 07-07-2024 End: 07-07-2024 Nursing evaluation of patient and report Mi Nurse Work Phone: [facility] [place] Comment on above: Pernicious anemia (P rimary Dx) Start: 07-07-2024 End: 07-07-2024 ambulatory PIYUSH RIVERA Facility:[facility] Start: 06-09-2024 End: 06-09-2024 ambulatory PIYUSH RIVERA Facility:[facility] Start: 06-09-2024 End: 06-10-2024 Nursing evaluation of patient and report Mi Nurse Work Phone: Family [facility] [place] Comment on above: Pernicious anemia (P rimary Dx) Refill Request Start: 05-19-2024 End: 05-19-2024 ambulatory PIYUSH RIVERA Facility:[facility] Start: 05-19-2024 End: 05-19-2024 Office outpatient visit 15 minutes Piyush Rivera MD Work Phone: [facility] [place] Comment on above: Essential hypertensi on (Primary Dx); Need for influenza vaccination; Aneurysm of ascending aorta without rupture (HCC) Start: 05-19-2024 End: 05-19-2024 Telephone encounter Piyush Rivera MD Work Phone: [facility] [place] Comment on above: Results; chest xray results Start: 05-14-2024 End: 05-14-2024 ambulatory PIYUSH RIVERA Facility:[facility] Start: 05-14-2024 End: 05-14-2024 Subsequent hospital visit by physician [facility] [place] Work Phone: Radiology Comment on above: Pleural effusion [J9 0] Start: 05-12-2024 End: 05-14-2024 Telephone encounter Piyush Rivera MD Work Phone: [facility] [place] Comment on above: blood pressure updat e Start: 05-12-2024 End: 05-12-2024 ambulatory PIYUSH RIVERA Facility:[facility] Start: 05-12-2024 End: 05-12-2024 Nursing evaluation of patient and report Mi Nurse Work Phone: [facility] [place] Comment on above: Pernicious anemia (P rimary Dx) Start: 04-24-2024 End: 04-24-2024 ambulatory PIYUSH RIVERA Facility:[facility] Start: 04-16-2024 End: 04-16-2024 ambulatory PIYUSH RIVERA Facility:[facility] Start: 04-16-2024 End: 04-16-2024 Office outpatient visit 25 minutes Piyush Rivera MD Work Phone: [facility] [place] Comment on above: COVID-19 (Primary Dx ); Pleural effusion; Abnormal blood chemistry; Essential hypertension; Abnormal EKG Start: 04-15-2024 End: 04-15-2024 Telephone encounter Suzanne GOULD Work Phone: [facility] Comment on above: Results Start: 04-14-2024 End: 04-14-2024 Subsequent hospital visit by physician [facility] [place] Work Phone: Radiology Comment on above: Acute cough [R05.1] Start: 04-14-2024 End: 04-14-2024 ambulatory AMEYA AGUDELO Facility:[facility] Start: 04-14-2024 End: 04-14-2024 Office outpatient visit 25 minutes Ameya Agudelo MD Work Phone: [facility] Comment on above: Acute cough (Primary Dx); Pleural effusion Start: 04-07-2024 Telephone encounter Piyush rudd MD Work Phone: [facility] [place] Comment on above: Patient Update Start: 04-07-2024 End: 04-07-2024 Nursing evaluation of patient and report Mi Nurse Work Phone: Family [facility] [place] Comment on above: Pernicious anemia (P rimary Dx) Start: 04-07-2024 End: 04-07-2024 ambulatory PIYUSH RIVERA Facility:[facility] Start: 03-03-2024 Telephone encounter Piyush rudd MD Work Phone: [facility] [place] Comment on above: Patient Update Start: 03-03-2024 End: 03-03-2024 ambulatory PIYUSH RIVERA Facility:[facility] Start: 03-03-2024 End: 03-03-2024 Nursing evaluation of patient and report Mi Nurse Work Phone: [facility] [place] Comment on above: Pernicious anemia (P rimary Dx) Start: 02-26-2024 Telephone encounter Piyush rudd MD Work Phone: [address] [place] [address] Comment on above: Patient Question Start: 02-25-2024 End: 02-25-2024 ambulatory PIYUSH RIVERA Facility:[facility] Start: 02-25-2024 End: 02-25-2024 Patient encounter procedure Piyush Rivera MD Work Phone: [facility] [place] Comment on above: Medicare annual well ness visit, subsequent (Primary Dx); Essential hypertension; Pernicious anemia; Venous insufficiency of both lower extremities; Need for COVID-19 vaccine; Vitamin D deficiency Start: 02-25-2024 End: 02-25-2024 ambulatory NEGRA UGALDE Facility:[facility] Start: 02-20-2024 Refill Piyush boss MD Work Phone: [facility] [place] Comment on above: Refill Request Start: 02-04-2024 End: 02-04-2024 ambulatory PIYUSH RIVERA Facility:[facility] Start: 02-04-2024 End: 02-04-2024 Nursing evaluation of patient and report Mi Nurse Work Phone: [facility] [place] Comment on above: Pernicious anemia (P rimary Dx) Start: 01-30-2024 Refill Piyush boss MD Work Phone: [facility] [place] Comment on above: Refill Request Medication Problem Start: 12-31-2023 End: 12-31-2023 Nursing evaluation of patient and report Mi Nurse Work Phone: [facility] [place] Comment on above: Pernicious anemia (P rimary Dx) Start: 11-26-2023 End: 11-26-2023 Nursing evaluation of patient and report Mi Nurse Work Phone: [facility] [place] Comment on above: Pernicious anemia (P rimary Dx) Start: 10-29-2023 End: 10-29-2023 Nursing evaluation of patient and report Mi Nurse Work Phone: [facility] [place] Comment on above: Pernicious anemia (P rimary Dx) Start: 10-01-2023 End: 10-01-2023 Nursing evaluation of patient and report Mi Nurse Work Phone: [facility] [place] Comment on above: Pernicious anemia (P rimary Dx) Start: 09-28-2023 Telephone encounter Piyush rudd MD Work Phone: [facility] [place] Comment on above: Orders Start: 07-02-2023 End: 07-02-2023 Nursing evaluation of patient and report Mi Nurse Work Phone: [facility] [place] Comment on above: Pernicious anemia (P rimary Dx) Start: 05-25-2023 End: 05-25-2023 Patient encounter procedure Karey Staton PA-C Work Phone: [facility] Comment on above: Leg wound, left, ini tial encounter (Primary Dx) Start: 05-07-2023 End: 05-07-2023 ambulatory [facility] Work Phone: Start: 05-07-2023 End: 05-07-2023 Patient encounter procedure [facility]-Laboratory, Future Work Phone: Start: 04-02-2023 End: 04-02-2023 Nursing evaluation of patient and report Mi Nurse Work Phone: [facility] [place] Comment on above: Pernicious anemia (P rimary Dx) Start: 02-12-2023 End: 02-12-2023 Patient encounter procedure Piyush Rivera MD Work Phone: Internal [facility] Comment on above: Medicare annual well ness visit, subsequent (Primary Dx); Pernicious anemia; Essential hypertension; Vitamin D deficiency; Numbness of left thumb; Impacted cerumen of left ear; Hyperglycemia Start: 02-09-2023 Telephone encounter Leidy Granados MA [facility] [place] Comment on above: Orders Start: 01-29-2023 End: 01-29-2023 Nursing evaluation of patient and report Mi Nurse Work Phone: [facility] [place] Comment on above: Pernicious anemia (P rimary Dx) Start: 12-25-2022 End: 12-25-2022 Nursing evaluation of patient and report Mi Nurse Work Phone: [facility] [place] Comment on above: Pernicious anemia (P rimary Dx) Start: 11-27-2022 End: 11-27-2022 Nursing evaluation of patient and report Mi Nurse Work Phone: [facility] [place] Comment on above: Pernicious anemia (P rimary Dx) Start: 10-30-2022 End: 10-30-2022 Nursing evaluation of patient and report Mi Nurse Work Phone: [facility] [place] Comment on above: Pernicious anemia (P rimary Dx) Start: 10-02-2022 End: 10-02-2022 Nursing evaluation of patient and report Mi Nurse Work Phone: [facility] [place] Comment on above: Pernicious anemia (P rimary Dx) Start: 09-26-2022 Telephone encounter Piyush rudd MD Work Phone: Internal [facility] [place] Comment on above: Orders Start: 09-04-2022 End: 09-04-2022 Nursing evaluation of patient and report Mi Nurse Work Phone: [facility] [place] Comment on above: Pernicious anemia (P rimary Dx) Start: 07-31-2022 End: 07-31-2022 Nursing evaluation of patient and report Mi Nurse Work Phone: [facility] [place] Comment on above: Pernicious anemia (P rimary Dx) Start: 07-14-2022 End: 07-14-2022 Patient encounter procedure Piyush Rivera MD Work Phone: Internal [facility] [place] Comment on above: Essential hypertensi on (Primary Dx); Pernicious anemia; Venous insufficiency of both lower extremities; Atrophy of muscle of left lower leg; Left leg weakness; Raynaud's phenomenon without gangrene Start: 07-03-2022 End: 07-03-2022 Nursing evaluation of patient and report Mi Nurse Work Phone: [facility] [place] Comment on above: Pernicious anemia (P rimary Dx) Start: 06-05-2022 End: 06-05-2022 Nursing evaluation of patient and report Mi Nurse Work Phone: [facility] Comment on above: Pernicious anemia (P rimary Dx); Need for vaccination; Need for influenza vaccination Start: 05-03-2022 End: 05-03-2022 Nursing evaluation of patient and report Mi Nurse Work Phone: [facility] [place] Comment on above: Pernicious anemia (P rimary Dx) Start: 04-20-2022 End: 04-20-2022 ambulatory [facility] Work Phone: Start: 04-20-2022 End: 04-20-2022 Patient encounter procedure [facility]Labor[facility] Start: 04-03-2022 End: 04-03-2022 Nursing evaluation of patient and report Mi Nurse Work Phone: [facility] Comment on above: Pernicious anemia (P rimary Dx) Start: 03-29-2022 Telephone encounter Piyush rudd MD Work Phone: [facility] Comment on above: Patient Update Start: 03-06-2022 End: 03-06-2022 Nursing evaluation of patient and report Mi Nurse Work Phone: [facility] Comment on above: Pernicious anemia (P rimary Dx) Start: 02-20-2022 Refill Piyush boss MD Work Phone: Internal [facility] Comment on above: Refill Request Start: 01-30-2022 End: 01-30-2022 Nursing evaluation of patient and report Mi Nurse Work Phone: [facility] Comment on above: Pernicious anemia (P rimary Dx) Start: 01-11-2022 End: 01-11-2022 Subsequent hospital visit by physician [facility] [place] Work Phone: Radiology Comment on above: Wheezing [R06.2] Start: 01-11-2022 End: 01-11-2022 Patient encounter procedure Piyush Rivera MD Work Phone: Internal [facility] Comment on above: Medicare annual well ness visit, subsequent (Primary Dx); Essential hypertension; Wheezing; Need for COVID-19 vaccine; Pernicious anemia; Venous insufficiency of both lower extremities Start: 12-28-2021 Refill Piyush boss MD Work Phone: [facility] [place] Comment on above: Refill Request Start: 12-26-2021 End: 12-26-2021 Nursing evaluation of patient and report Mi Nurse Work Phone: [facility] [place] Comment on above: Pernicious anemia (P rimary Dx) Start: 11-28-2021 End: 11-28-2021 Nursing evaluation of patient and report Mi Nurse Work Phone: [facility] [place] Comment on above: Pernicious anemia (P rimary Dx) Start: 02-01-2009 End: 09-07-2015 Patient encounter status Mi Nurse Work Phone: [facility] Procedures Date Procedure Procedure Detail Performing Clinician Start: 01-08-2025 Radionuclide whole b benita bone study Dr. Piyush Rivera MD Work Phone: Start: 12-25-2024 MRI of pelvis with contrast Dr. Piyush Rivera MD Work Phone: Start: 11-06-2024 Free prostate specif ic antigen level Dr. Piyush Rivera MD Work Phone: Comment on above: [facility] [employer]. Start: 11-06-2024 Prostate specific an tigen measurement Dr. Piyush Rivera MD Work Phone: Comment on above: [facility] [employer].According to the [employer], Serum PSAshould decrease and remain at undetectable levels afterradical prostatectomy. The AUA defines biochemicalrecurrence as an initial PSA value 0.200 ng/mL or greaterfollowed by a subsequent confirmatory PSA value 0.200 ng/mLor greater. Values obtained with different assay methods orkits cannot be used interchangeably. Results cannot beinterpreted as absolute evidence of the presence or absenceof malignant disease. Start: 10-28-2024 Assay of prostate sp ecific antigen total Dr. Piyush Rivera MD Work Phone: Comment on above: This test was perfor med using the [employer] tPSA method. Measured values of a patient sample can vary depending on the testing procedure used. PSA values determined on patient samples by different testing procedures cannot be used interchangeably. If there is a change in PSA assays while monitoring therapy, sequential testing should be performed to confirm baseline values. Start: 08-28-2024 PFIZER-BIONTECH COVI D-19 VACCINE AGE 12+ YR (COMIRNATY) Piyush Rivera MD Work Phone: Start: 05-14-2024 Radiologic exam chest 2 views Piyush Rivera MD Work Phone: Start: 04-16-2024 Ecg routine ecg w/le ast 12 lds i&r only [facility] Provider Start: 04-14-2024 Radiologic exam chest 2 views Ameya Agudelo MD Work Phone: Start: 02-25-2024 PFIZER-BIONTECH COVI D-19 VACCINE (2022- SEASON) AGE 12+ YR Piyush Rivera MD Work Phone: Start: 02-25-2024 Adult depression scr eening assessment Mi Nurse Work Phone: Start: 02-25-2024 Lipid 1996 panel - S sofía or Plasma Piyush Rivera MD Work Phone: Start: 02-09-2023 Lipid 1996 panel - S sofía or Plasma Karey Staton PA-C Work Phone: Start: 06-05-2022 INFLUENZA SEASONAL Q UADRIVALENT HIGH DOSE AGE 65+ 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 Work Phone: Start: 06-05-2022 PFIZER-BIONTECH COVI D-19 BIVALENT BOOSTER VACCINE, AGE 12+ YR 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 Work Phone: Start: 01-11-2022 Radiologic exam chest 2 views Piyush Rivera MD Work Phone: Start: 01-11-2022 PFIZER-BIONTECH COVI D-19 VACCINE, AGE 12+ YR (BUI TOP) Piyush Rivera MD Work Phone: Start: 01-11-2022 Adult depression scr eening assessment Piyush Rivera MD Work Phone: Start: 01-03-2021 Adult depression scr eening assessment Swathi Nurse Work Phone: Start: 04-21-2020 Colonoscopy Mi Nurse Work Phone: Plan of Treatment Date Care Activity Detail Author Start: 04-21-2030 Colonoscopy COLONOSCOPY [facility] Start: 04-21-2030 COLORECTAL CANCER SCREENING COLORECTAL CANCER SCREENING [facility] Start: 04-21-2030 Screening for malign ant neoplasm of colon [facility] Start: 02-24-2029 Lipid panel Lipid Screening [facility] Start: 01-27-2029 Urine microalbumin profile [facility] Start: 02-10-2028 Lipid 1996 panel - S sofía or Plasma Lipid Screening [facility] Start: 02-10-2028 Lipid panel Lipid Screening [facility] Start: 02-10-2028 LIPID SCREEN LIPID SCREEN [facility] Start: 04-14-2027 Diabetes Screening Diabetes Screenin g [facility] Start: 04-07-2027 Diabetes Screening Diabetes Screenin g [facility] Start: 02-24-2027 [facility] Start: 12-26-2026 LIPID SCREEN LIPID SCREEN [facility] Start: 02-09-2026 DIABETES SCREEN DIABETES SCREEN [facility] Start: 02-09-2026 Diabetes Screening Diabetes Screenin g [facility] Start: 12-30-2025 LIPID SCREEN LIPID SCREEN [facility] Start: 11-25-2025 Annual PCP Team Sleeve Sewer joseph Disease Visit Annual PCP Team Chronic Disease Visit [facility] Start: 08-28-2025 Annual PCP Team Sleeve Sewer joseph Disease Visit Annual PCP Team Chronic Disease Visit [facility] Start: 08-28-2025 BP Controlled (<130/80) BP Controlle d (<130/80) [facility] Start: 08-10-2025 End: 08-10-2025 Nursing evaluation of patient and report 08/10/2025 9:00 AM EST Nurse Visit [facility] [place] [address] [place] [address] Nurse, Swathi [address] [place] [address] [place] [address] B-12 injection [facility] [place] Comment on above: B-12 injection Start: 07-14-2025 DIABETES SCREEN DIABETES SCREEN [facility] Start: 07-06-2025 End: 07-06-2025 Nursing evaluation of patient and report 07/06/2025 9:00 AM EST Nurse Visit [facility] [place] [address] [place] [address] Nurse, Mi [address] [place] [address] B-12 injection [facility] [place] Comment on above: B-12 injection Start: 06-08-2025 End: 06-08-2025 Nursing evaluation of patient and report 06/08/2025 9:00 AM EDT Nurse Visit [facility] [place] [address] [place] [address] Nurse, Ut [address] [place] [address] B-12 injection [facility] [place] Comment on above: B-12 injection Start: 05-19-2025 Annual PCP Team Sleeve Sewer joseph Disease Visit Annual PCP Team Chronic Disease Visit [facility] Start: 05-11-2025 End: 05-11-2025 Nursing evaluation of patient and report 05/11/2025 9:00 AM EDT Nurse Visit [facility] [place] [address] [place] [address] Nurse, Ut [address] [place] [address] B-12 injection [facility] [place] Comment on above: B-12 injection Start: 04-16-2025 Annual PCP Team Sleeve Sewer joseph Disease Visit Annual PCP Team Chronic Disease Visit [facility] Start: 04-06-2025 End: 04-06-2025 Nursing evaluation of patient and report 04/06/2025 9:00 AM EDT Nurse Visit [facility] [place] [address] [place] [address] Nurse, Ut [address] [place] [address] B-12 injection [facility] [place] Comment on above: B-12 injection Start: 03-02-2025 End: 03-02-2025 Nursing evaluation of patient and report 03/02/2025 11:15 AM EDT Nurse Visit [facility] [place] [address] [place] [address] Nurse, Ut [address] [place], [place] [id number] B-12 injection [facility] [place] Comment on above: B-12 injection Start: 02-26-2025 End: 02-26-2025 Patient encounter procedure 02/26/2025 1:00 PM EDT Office Visit [facility] [place] [address] [place] [address] Piyush Rivera MD [address] [place] [address] Medicare Annual Wellness w/6 month follow-up [facility] [place] Comment on above: Medicare Annual Well ness w/6 month follow-up Start: 02-25-2025 Covid-19 Vaccine () Covid-19 Vaccine () [facility] Start: 02-24-2025 Annual PCP Team Sleeve Sewer joseph Disease Visit Annual PCP Team Chronic Disease Visit [facility] Start: 02-24-2025 Anxiety Screening Anxiety Screening [facility] Start: 02-24-2025 Depression Screening Depression Scre ening [facility] Start: 02-23-2025 End: 05-25-2025 CBC panel - Blood by Automated count COMPLETE BLOOD COUNT Lab Routine Pernicious anemia Expected: 02/23/2025, Expires: 05/25/2025 [facility] Work Phone: Comment on above: Expected: 02/23/2025 , Expires: 05/25/2025 Start: 02-23-2025 End: 05-25-2025 Cobalamin (Vitamin B12) [Mass/volume] in Serum or Plasma VITAMIN B12 Lab Routine Pernicious anemia Expected: 02/23/2025, Expires: 05/25/2025 [facility] Comment on above: Expected: 02/23/2025 , Expires: 05/25/2025 Start: 02-23-2025 End: 05-25-2025 Comprehensive metabolic 2000 panel - Serum or Plasma COMPREHENSIVE METABOLIC PANEL Lab Routine Essential hypertension Expected: 02/23/2025, Expires: 05/25/2025 [facility] Comment on above: Expected: 02/23/2025 , Expires: 05/25/2025 Start: 02-23-2025 End: 05-25-2025 Lipid 1996 panel - Serum or Plasma LIPID PANEL BASIC Lab Routine Essential hypertension Expected: 02/23/2025, Expires: 05/25/2025 [facility] Comment on above: Expected: 02/23/2025 , Expires: 05/25/2025 Start: 02-02-2025 End: 02-02-2025 Nursing evaluation of patient and report 02/02/2025 9:15 AM EDT Nurse Visit [facility] [place] [address] [place] [address] Nurse, Ut [address] [place] [address] B-12 injection [facility] [place] Comment on above: B-12 injection Start: 01-05-2025 End: 01-05-2025 Nursing evaluation of patient and report 01/05/2025 9:15 AM EDT Nurse Visit [facility] [place] [address] [place] [address] Nurse, Ut [address] [place] [address] B-12 injection [facility] [place] Comment on above: B-12 injection Start: 12-26-2024 DIABETES SCREEN DIABETES SCREEN [facility] Start: 12-08-2024 End: 12-08-2024 Nursing evaluation of patient and report 12/08/2024 9:15 AM EDT Nurse Visit [facility] [place] [address] [place] [address] Nurse, Mi [address] [place] [address] B-12 injection [facility] [place] Comment on above: B-12 injection Start: 11-10-2024 End: 11-10-2024 Nursing evaluation of patient and report 11/10/2024 9:15 AM EDT Nurse Visit [facility] [place] [address] [place] [address] Nurse, Ut [address] [place] [address] B-12 injection [facility] [place] Comment on above: B-12 injection Start: 10-13-2024 End: 10-13-2024 Nursing evaluation of patient and report 10/13/2024 9:15 AM EST Nurse Visit [facility] [place] [address] [place] [address] Nurse, Ut [address] [place] [address] B-12 injection [facility] [place] Comment on above: B-12 injection Start: 09-08-2024 End: 09-08-2024 Nursing evaluation of patient and report 09/08/2024 8:45 AM EST Nurse Visit [facility] [place] [address] [place] [address] Nurse, Ut [address] [place] [address] B-12 injection [facility] [place] Comment on above: B-12 injection Start: 08-28-2024 End: 08-28-2024 Follow-up encounter 08/28/2024 1:[address] [facility] [place] [address] [place] [address] Piyush Rivera MD [address] [place] [address] 6 month follow-up [facility] [place] Comment on above: 6 month follow-up Start: 08-28-2024 End: 08-28-2024 Patient encounter procedure 08/28/2024 1:40 PM EST Office Visit [facility] [place] [address] [place] [address] Piyush Rivera MD [address] [place] [address] 6 month follow-up [facility] [place] Comment on above: 6 month follow-up Start: 08-27-2024 Advance Directive Discussion Advance Directive Discussion [facility] Start: 08-11-2024 End: 08-11-2024 Nursing evaluation of patient and report 08/11/2024 9:15 AM EST Nurse Visit [facility] [place] [address] [place] [address] Nurse, Ut [address] [place] [address] B-12 injection [facility] [place] Comment on above: B-12 injection Start: 07-07-2024 End: 07-07-2024 Nursing evaluation of patient and report 07/07/2024 9:15 AM EST Nurse Visit [facility] [place] [address] [place] [address] Nurse, Ut [address] [place] [address] B-12 injection [facility] [place] Comment on above: B-12 injection Start: 06-09-2024 End: 06-09-2024 Nursing evaluation of patient and report 06/09/2024 9:45 AM EDT Nurse Visit [facility] [place] [address] [place] [address] Nurse, Ut [address] [place] [address] B-12 injection [facility] [place] Comment on above: B-12 injection Start: 05-25-2024 BP Controlled (<130/80) BP Controlle d (<130/80) [facility] Start: 05-19-2024 End: 05-19-2024 Patient encounter procedure 05/19/2024 3:00 PM EDT Office Visit [facility] [place] [address] [place] [address] Piyush Rivera MD [address] [place] [address] urg care f/u [facility] [place] Comment on above: urg care f/u Start: 05-12-2024 End: 05-12-2024 Nursing evaluation of patient and report 05/12/2024 9:15 AM EDT Nurse Visit [facility] [place] [address] [place] [address] Nurse, Ut [address] [place] [address] B-12 injection [facility] [place] Comment on above: B-12 injection Start: 05-07-2024 End: 05-16-2025 XR Chest PA and Lateral XR CHEST 2V FRONTAL/LAT Radiology Routine Pleural effusion Expected: 05/07/2024, Expires: 05/16/2025 [facility] Comment on above: Expected: 05/07/2024 , Expires: 05/16/2025 Start: 04-27-2024 Covid-19 Vaccine () Covid-19 Vaccine () [facility] Start: 04-27-2024 Influenza vaccination Influenza Vacc ine (#1) [facility] Start: 04-24-2024 End: 04-24-2024 Patient encounter procedure 04/24/2024 3:30 PM EDT Office Visit Cardiology [address] [place], [place] [id number] Abnormal EKG [R94.31] Cardiology Comment on above: Abnormal EKG [R94.31 ] Start: 04-16-2024 End: 04-16-2024 Patient encounter procedure 04/16/2024 8:20 AM EDT Office Visit [facility] [place] [address] [place] [address] Piyush Rivera MD [address] [place] [address] urg care f/u [facility] [place] Comment on above: urg care f/u Start: 04-14-2024 End: 07-14-2024 CBC W Auto Differential panel - Blood [facility] Comment on above: Expected: 04/14/2024 , Expires: 07/14/2024 Start: 04-14-2024 End: 07-14-2024 Comprehensive metabolic 2000 panel - Serum or Plasma [facility] Comment on above: Expected: 04/14/2024 , Expires: 07/14/2024 Start: 04-14-2024 End: 07-14-2024 Fibrin D-dimer FEU [Mass/volume] in Platelet poor plasma [facility] Comment on above: Expected: 04/14/2024 , Expires: 07/14/2024 Start: 04-14-2024 End: 07-14-2024 Natriuretic peptide.B prohormone N-Terminal [Mass/volume] in Serum or Plasma [facility] Comment on above: Expected: 04/14/2024 , Expires: 07/14/2024 Start: 04-07-2024 End: 04-07-2024 Nursing evaluation of patient and report 04/07/2024 9:45 AM EDT Nurse Visit [facility] [place] [address] [place] [address] Nurse, Swathi [address] [place] [address] b-12 [facility] [place] Comment on above: b-12 Start: 03-24-2024 End: 06-23-2024 Basic metabolic 2000 panel - Serum or Plasma BASIC METABOLIC PANEL Lab Routine Essential hypertension Expected: 03/24/2024, Expires: 06/23/2024 [facility] Work Phone: Comment on above: Expected: 03/24/2024 , Expires: 06/23/2024 Start: 03-03-2024 End: 03-03-2024 Nursing evaluation of patient and report 03/03/2024 9:15 AM EDT Nurse Visit [facility] [place] [address] [place] [address] Nurse, Ut [address] [place] [address] B-12 injection- ok to arrive early per [facility] [place] Comment on above: B-12 injection- ok t o arrive early per [facility] Start: 02-25-2024 End: 02-25-2024 Patient encounter procedure 02/25/2024 4:40 PM EDT Office Visit [facility] [place] [address] [facility] [place] [address] Piyush Rivera MD [address] [place] [address] medicare wellness [facility] [place] Comment on above: medicare wellness Start: 02-13-2024 ANNUAL PCP TEAM DIRECTOR NETWORK DEVELOPMENT JOSEPH DISEASE VISIT ANNUAL PCP TEAM CHRONIC DISEASE VISIT [facility] Start: 02-04-2024 End: 02-04-2024 Nursing evaluation of patient and report [facility] [place] Comment on above: B-12 injection B-12 injection- ok t o arrive late per [facility] Start: 01-30-2024 End: 04-30-2024 25-hydroxyvitamin D3 [Mass/volume] in Serum or Plasma VITAMIN D 25 HYDROXY Lab Routine Vitamin D deficiency Expected: 01/30/2024, Expires: 04/30/2024 [facility] Comment on above: Expected: 01/30/2024 , Expires: 04/30/2024 Start: 01-30-2024 End: 04-30-2024 CBC panel - Blood by Automated count COMPLETE BLOOD COUNT Lab Routine Pernicious anemia Essential hypertension Expected: 01/30/2024, Expires: 04/30/2024 [facility] Work Phone: Comment on above: Expected: 01/30/2024 , Expires: 04/30/2024 Start: 01-30-2024 End: 04-30-2024 Cobalamin (Vitamin B12) [Mass/volume] in Serum or Plasma VITAMIN B12 Lab Routine Pernicious anemia Expected: 01/30/2024, Expires: 04/30/2024 [facility] Comment on above: Expected: 01/30/2024 , Expires: 04/30/2024 Start: 01-30-2024 End: 04-30-2024 Comprehensive metabolic 2000 panel - Serum or Plasma COMPREHENSIVE METABOLIC PANEL Lab Routine Essential hypertension Expected: 01/30/2024, Expires: 04/30/2024 [facility] Comment on above: Expected: 01/30/2024 , Expires: 04/30/2024 Start: 01-30-2024 End: 04-30-2024 Hemoglobin A1c in Blood HEMOGLOBIN A1C Lab Routine Hyperglycemia Expected: 01/30/2024, Expires: 04/30/2024 [facility] Comment on above: Expected: 01/30/2024 , Expires: 04/30/2024 Start: 01-30-2024 End: 04-30-2024 Lipid 1996 panel - Serum or Plasma LIPID PANEL BASIC Lab Routine Essential hypertension Expected: 01/30/2024, Expires: 04/30/2024 [facility] Comment on above: Expected: 01/30/2024 , Expires: 04/30/2024 Start: 12-31-2023 DIABETES SCREEN DIABETES SCREEN [facility] Start: 09-28-2023 Covid-19 Vaccine (7 - 2023-24 season) Covid-19 Vaccine () [facility] Start: 08-27-2023 Advance Directive Discussion Advance Directive Discussion [facility] Start: 08-27-2023 Behavioral Health Screening Behavioral Health Screening [facility] Start: 08-27-2023 Depression Assessment Depression Ass essment [facility] Start: 08-14-2023 End: 10-14-2023 25-hydroxyvitamin D3 [Mass/volume] in Serum or Plasma VITAMIN D 25 HYDROXY Lab Routine Vitamin D deficiency Expected: 08/14/2023, Expires: 10/14/2023 [facility] Work Phone: Comment on above: Expected: 08/14/2023 , Expires: 10/14/2023 Start: 08-14-2023 End: 10-14-2023 Basic metabolic 2000 panel - Serum or Plasma BASIC METABOLIC PNL Lab Routine Hyperglycemia Expected: 08/14/2023, Expires: 10/14/2023 [facility] Work Phone: Comment on above: Expected: 08/14/2023 , Expires: 10/14/2023 Start: 08-14-2023 End: 10-14-2023 CBC panel - Blood by Automated count CBC Lab Routine Pernicious anemia Expected: 08/14/2023, Expires: 10/14/2023 [facility] Work Phone: Comment on above: Expected: 08/14/2023 , Expires: 10/14/2023 Start: 08-14-2023 End: 10-14-2023 Cobalamin (Vitamin B12) [Mass/volume] in Serum or Plasma VITAMIN B12 BLOOD Lab Routine Pernicious anemia Expected: 08/14/2023, Expires: 10/14/2023 [facility] Work Phone: Comment on above: Expected: 08/14/2023 , Expires: 10/14/2023 Start: 08-14-2023 End: 10-14-2023 Hemoglobin A1c in Blood HGB A1C Lab Routine Hyperglycemia Expected: 08/14/2023, Expires: 10/14/2023 [facility] Work Phone: Comment on above: Expected: 08/14/2023 , Expires: 10/14/2023 Start: 07-14-2023 ANNUAL PCP TEAM DIRECTOR NETWORK DEVELOPMENT JOSEPH DISEASE VISIT ANNUAL PCP TEAM CHRONIC DISEASE VISIT [facility] Start: 04-27-2023 Influenza vaccination [facility] Start: 02-09-2023 End: 04-11-2023 25-hydroxyvitamin D3 [Mass/volume] in Serum or Plasma [facility] Work Phone: Comment on above: Expected: 02/09/2023 , Expires: 04/11/2023 Start: 02-09-2023 End: 04-11-2023 Lipid 1996 panel - Serum or Plasma [facility] Work Phone: Comment on above: Expected: 02/09/2023 , Expires: 04/11/2023 Start: 01-11-2023 Adult depression scr eening assessment DEPRESSION SCREENING [facility] Start: 01-11-2023 ANNUAL PCP TEAM DIRECTOR NETWORK DEVELOPMENT JOSEPH DISEASE VISIT ANNUAL PCP TEAM CHRONIC DISEASE VISIT [facility] Start: 10-06-2022 COVID-19 VACCINE (6 - Pfizer series) COVID-19 VACCINE (6 - Pfizer series) [facility] Start: 08-27-2022 ADVANCE DIRECTIVE DISCUSSION ADVANCE DIRECTIVE DISCUSSION [facility] Start: 08-27-2022 DEPRESSION ASSESSMENT DEPRESSION ASS ESSMENT [facility] Start: 07-14-2022 End: 09-13-2022 Basic metabolic 2000 panel - Serum or Plasma BASIC METABOLIC PNL Lab Routine Pernicious anemia Expected: 07/14/2022, Expires: 09/13/2022 [facility] Work Phone: Comment on above: Expected: 07/14/2022 , Expires: 09/13/2022 Start: 07-14-2022 End: 09-13-2022 CBC panel - Blood by Automated count CBC Lab Routine Pernicious anemia Expected: 07/14/2022, Expires: 09/13/2022 [facility] Work Phone: Comment on above: Expected: 07/14/2022 , Expires: 09/13/2022 Start: 07-14-2022 End: 09-13-2022 VITAMIN B12 BLOOD VITAMIN B12 BLOOD Lab Routine Pernicious anemia Expected: 07/14/2022, Expires: 09/13/2022 [facility] Work Phone: Comment on above: Expected: 07/14/2022 , Expires: 09/13/2022 Start: 04-27-2022 Influenza vaccination INFLUENZA (#1) [facility] Start: 04-13-2022 ANNUAL PCP TEAM DIRECTOR NETWORK DEVELOPMENT JOSEPH DISEASE VISIT ANNUAL PCP TEAM CHRONIC DISEASE VISIT [facility] Start: 01-03-2022 Adult depression scr eening assessment DEPRESSION SCREENING [facility] Start: 08-27-2021 ADVANCE DIRECTIVE DISCUSSION ADVANCE DIRECTIVE DISCUSSION [facility] Start: 08-27-2021 DEPRESSION ASSESSMENT DEPRESSION ASS ESSMENT [facility] Start: 05-31-2021 BP CONTROLLED (<130/80) BP CONTROLLE D (<130/80) [facility] Start: 02-25-2015 FECAL OCCULT BLOOD FECAL OCCULT BLOO D [facility] Start: 02-25-2015 Screening for malign ant neoplasm of colon Fecal Occult Blood [facility] Start: 2010 RSV Vaccine (1 - 1-d ose 60+ series) RSV Vaccine (1 - 1-dose 60+ series) [facility] Start: 1995 COLOGUARD (FIT-DNA) COLOGUARD (FIT-D NA) [facility] Start: [address] COLONOGRAPHY [facility] Start: 1995 Screening for malign ant neoplasm of colon [facility] Start: 1995 SIGMOIDOSCOPY SIGMOIDOSCOPY [facility] ECG COMPLETE [facility] Work Phone: Comment on above: Ordered: 04/16/2024 End: 04-16-2025 Echocardiography ECHO Cardiology Routine Abnormal EKG 1 Occurrences starting 04/16/2024 until 04/16/2025 [facility] Comment on above: 1 Occurrences starti ng 04/16/2024 until 04/16/2025 Removal impacted cer umen irrigation/lvg unilat AMBULATORY EAR LAVAGE/IRRIGATION Procedures Routine Impacted cerumen of left ear Ordered: 02/12/2023 [facility] Work Phone: Comment on above: Ordered: 02/12/2023 SARS-CoV-2 (COVID-19 ) RNA [Presence] in Respiratory specimen by CORAL with probe detection COVID NAAT, UPPER RESPIRATORY, ROUTINE Microbiology Routine Acute cough Ordered: 04/14/2024 [facility] Work Phone: Comment on above: Ordered: 04/14/2024 [facility] Immunizations Immunization Date Immunization Notes Care Provider Fa cili 08-28-2024 COVID-19 vaccine, ag e 12+ yr (PFIZER-BIONTECH COMIRNATY) Piyush Rivera MD Work Phone: [facility] 05-19-2024 influenza, high dose seasonal, preservative-free Piyush Rivera MD Work Phone: [facility] 02-25-2024 COVID-19 vaccine, ag e 12+ yr, season (PFIZER-BIONTECH) Piyush Rivera MD Work Phone: [facility] 10-03-2023 respiratory syncytia l virus (RSV) vaccine, bivalent (ABRYSVO) Piyush Rivera MD Work Phone: [facility] 2023 COVID-19 vaccine, ag e 12+ yr, season (PFIZER-BIONTECH) Ut Nurse Work Phone: [facility] Work Phone: 2023 influenza (HD-IIV4) vaccine, age 65+ yr, high dose, quadrivalent, PF (FLUZONE HIGH-DOSE) Ut Nurse Work Phone: [facility] Work Phone: 2023 influenza virus vacc ine, unspecified formulation Piyush Rivera MD Work Phone: [facility] 06-05-2022 COVID-19 booster vaccine, age 12+ yr, bivalent (PFIZER-BIONTECH) Ut Nurse Work Phone: [facility] Work Phone: 06-05-2022 influenza, high-dose , quadrivalent vaccine (FLUZONE HIGH DOSE QUADRIVALENT) Ut Nurse Work Phone: [facility] Work Phone: 06-05-2022 influenza virus vacc ine, unspecified formulation Karey Staton PA-C Work Phone: [facility] 01-11-2022 COVID-19 vaccine, ag e 12+ yr (PFIZER-BIONTECH - BUI TOP) Piyush Rivera MD Work Phone: [facility] Work Phone: 05-30-2021 influenza, high-dose , quadrivalent vaccine (FLUZONE HIGH DOSE QUADRIVALENT) Ut Nurse Work Phone: [facility] Work Phone: 10-21-2020 COVID-19 vaccine, ag e 12+ yr (PFIZER-BIONTECH - PURPLE TOP) Ut Nurse Work Phone: [facility] Work Phone: 09-30-2020 COVID-19 vaccine, ag e 12+ yr (PFIZER-BIONTECH - PURPLE TOP) Mi Nurse Work Phone: [facility] Work Phone: 08-24-2020 zoster vaccine recombinant Mi Nurse Work Phone: [facility] Work Phone: 06-02-2020 zoster vaccine recombinant Ut Nurse Work Phone: [facility] Work Phone: 05-31-2020 influenza, high-dose , quadrivalent vaccine (FLUZONE HIGH DOSE QUADRIVALENT) Ut Nurse Work Phone: [facility] Work Phone: 05-29-2019 influenza, high dose seasonal, preservative-free Mi Nurse Work Phone: [facility] Work Phone: 01-27-2019 tetanus and diphther ia toxoids, adsorbed, preservative free, for adult use (5 Lf of tetanus toxoid and 2 Lf of diphtheria toxoid) Ut Nurse Work Phone: [facility] Work Phone: 05-13-2018 influenza, high dose seasonal, preservative-free Ut Nurse Work Phone: [facility] Work Phone: 06-19-2017 influenza, injectabl e, quadrivalent, preservative free [facility] 06-19-2017 influenza, seasonal, injectable [facility] Work Phone: 06-18-2017 influenza, high dose seasonal, preservative-free Ut Nurse Work Phone: [facility] Work Phone: 01-12-2017 pneumococcal polysaccharide vaccine, 23 valent [facility] Nurse Work Phone: [facility] 06-19-2016 influenza, high dose seasonal, preservative-free [facility] Nurse Work Phone: [facility] Work Phone: 09-07-2015 pneumococcal conjuga te vaccine, 13 valent Ut Nurse Work Phone: [facility] 06-07-2015 influenza, high dose seasonal, preservative-free [facility] Nurse Work Phone: [facility] Work Phone: 07-20-2014 influenza, seasonal, injectable Ut Nurse Work Phone: [facility] Work Phone: 07-03-2012 influenza virus vacc ine, unspecified formulation [facility] Nurse Work Phone: [facility] 07-03-2012 zoster vaccine, live [facility] Nurs e Work Phone: [facility] 07-31-2011 influenza virus vacc ine, unspecified formulation [facility] Nurse Work Phone: [facility] 06-13-2010 influenza virus vacc ine, unspecified formulation Mi Nurse Work Phone: [facility] 06-14-2009 influenza virus vacc ine, unspecified formulation Mi Nurse Work Phone: [facility] Work Phone: 02-01-2009 tetanus toxoid, redu raven diphtheria toxoid, and acellular pertussis vaccine, adsorbed Ut Nurse Work Phone: [facility] 08-10-2008 influenza virus vacc ine, unspecified formulation Ut Nurse Work Phone: [facility] Work Phone: 07-15-2007 influenza virus vacc ine, unspecified formulation Ut Nurse Work Phone: [facility] 06-25-2006 influenza virus vacc ine, unspecified formulation Ut Nurse Work Phone: [facility] Work Phone: Payers Date Payer Category Payer Self-pay [id number] 2021 Medicare AETNA MEDICARE A ETNA MEDICARE PPO [id number] 2021-Present [phone] [address] [place] [address] PP [id number] 2021 Medicare AETNA MEDICARE A ETNA MEDICARE PPO [id number] 2021-Present [phone] [address] [place] [address] PP [id number] 2021 Medicare (Managed Care) [facility] [id number] 2010 Private Health Insurance 101 [id number] Unknown [id number] Unknown [id number] Unknown [id number] Unknown [id number] Unknown [id number] Social History Date Type Detail Facility Start: 07-31-2011 End: 02-12-2023 Tobacco smoking status NHIS Never smoked tobacco [facility] Work Phone: Start: 04-13-2021 End: 11-25-2024 Alcohol intake Current drinker of alcohol (finding) [facility] Start: 04-13-2021 End: 01-29-2023 Alcohol intake [facility] Start: 04-21-2020 End: 05-31-2020 History SDOH Alcohol Frequency 5 [facility] Start: 04-21-2020 End: 05-31-2020 History SDOH Alcohol Std Drinks 1 [facility] Start: 09-16-2019 End: 12-27-2019 History SDOH Social Connections Phone 3 [facility] Start: 09-16-2019 End: 05-31-2020 History SDOH Social Connections Get Together 2 [facility] Start: 09-15-2019 Education 18 [facility] Start: 1950 Sex Assigned At Male [facility] Start: 11-25-2021 End: 01-11-2022 Exposure to SARS-CoV-2 (event) Not sure [facility] Start: 07-31-2011 End: 02-12-2023 Tobacco use and exposure Smokeless tobacco non-user [facility] Start: 04-21-2018 Tobacco smoking status NHIS Unknown if ever smoked [facility] Start: 08-15-2017 None [facility] Start: 12-20-2017 Spouse/ Significant Other [facility] Start: 01-02-2017 Non-smoker [facility] Start: 12-27-2019 End: 01-29-2023 Social connection and isolation panel [facility] Do you belong to any clubs or organizations such as judaism groups, unions, fraternal or athletic groups, or school groups? Yes [facility] Are you now , , , , never or living with a partner? [facility] How often to you hav e a drink containing alcohol? 4 or more times a week [facility] How many standard dr inks containing alcohol do you have on a typical day? 1 or 2 [facility] How often do you hav e 6 or more drinks on 1 occasion? Never [facility] How hard is it for y ou to pay for the very basics like food, housing, medical care, and heating Not hard at all [facility] Work Phone: Do you feel stress - tense, restless, nervous, or anxious, or unable to sleep at night because your mind is troubled all the time - these days [OSQ] Only a little [facility] (I/We) worried [facility] (my/our) food would run out before (I/we) got money to buy more. Never true [facility] Work Phone: Start: 12-29-2019 Gender identity Identifies as male gender (finding) [facility] Start: 04-21-2018 Tobacco smoking status NHIS Ex-smoker (finding) [facility] Start: 11-09-2024 End: 11-16-2024 Sex Male (finding) [facility] Functional Status Date Assessment Result Facility 03-08-2015 Are you deaf, or do you have serious difficulty hearing No 03/08/2015 9:29 AM Tami Magdaleno LPN No [facility] Work Phone: 03-08-2015 Are you blind, or do you have serious difficulty seeing, even when wearing glasses No 03/08/2015 9:29 AM Tami Magdaleno LPN No [facility] 03-08-2015 Do you have serious difficulty walking or climbing stairs No 03/08/2015 9:29 AM Tami Magdaleno LPN No [facility] 03-08-2015 Do you have difficul ty dressing or bathing No 03/08/2015 9:29 AM EDT Tami Mejia LPN No [facility] 03-08-2015 Because of a physica l, mental, or emotional condition, do you have difficulty doing errands alone such as visiting a physician's office or shopping No 03/08/2015 9:29 AM EDT Tami Mejia LPN No [facility] Mental Status Date Assessment Result Facility 03-08-2015 Because of a physica l, mental, or emotional condition, do you have serious difficulty concentrating, remembering, or making decisions No 03/08/2015 9:29 AM EDT Tami Mejia LPN No [facility] Clinical Notes 02-04-2015 to 02-02-2025 RAMONITA TREVINO - 02/02/2025 9:10 AM EDTRAMONITA TREVINO - 01/05/2025 9:28 AM EDTTelephone Encounter - Maspeth Ayah Vanegas - 12/25/2024 2:52 PM Usha Valverde LPN - 12/02/2024 10:58 AM EDT Note Date & Type Note Facility 02-02-2025 Note HNO ID: [id number] Author: ?, ?, ? Service: ? Author Type: LICENSED NURSE Type: Progress Notes Filed: 02/02/2025 09:18 Note Text: Patient presents for B-12 injection. Denies any problems at this time. Patient instructed on any SE of medication, verbalized understanding and agreed to proceed with treatment. Tolerated injection well. Ramonita Trevino LPN [facility] 02-02-2025 History of Presen t illness Narrative Patient presents for B-12 injection. Denies any problems at this time. Patient instructed on any SE of medication, verbalized understanding and agreed to proceed with treatment. Tolerated injection well. Ramonita Trevino LPN documented in this encounter [facility] 01-05-2025 Note HNO ID: [id number] Author: ?, ?, ? Service: ? Author Type: LICENSED NURSE Type: Progress Notes Filed: 01/05/2025 09:28 Note Text: Patient presents for B-12 injection. Denies any problems at this time. Patient instructed on any SE of medication, verbalized understanding and agreed to proceed with treatment. Tolerated injection well. Ramonita Trevino LPN [facility] 01-05-2025 History of Presen t illness Narrative Patient presents for B-12 injection. Denies any problems at this time. Patient instructed on any SE of medication, verbalized understanding and agreed to proceed with treatment. Tolerated injection well. Ramonita Trevino LPN documented in this encounter [facility] 12-25-2024 Telephone encounter Note Prescription Refill Information The patient has been identified by name and date of : Yes Caregiver verified no other encounters exist for this prescription request: Yes Caregiver confirmed with patient/requestor that no other refills are due, in the near future, with this provider at this time: Yes The last office visit in the department: 11/25/24 Does the patient have a future office visit with this provider/department: Yes Requested Prescriptions Pending Prescriptions Disp Refills ergocalciferol 50,000 unit capsule (VITAMIN D2, DRISDOL) 12 capsule 3 Sig: Take 1 capsule by mouth one time a week. Per Patient, [facility] will not mail the Vitamin D2. Please send to [facility] [place]. Ayah Vanegas December 25, 2024 2:53 PM [facility] 12-25-2024 Miscellaneous Notes Prescription Refill Information The patient has been identified by name and date of : Yes Caregiver verified no other encounters exist for this prescription request: Yes Caregiver confirmed with patient/requestor that no other refills are due, in the near future, with this provider at this time: Yes The last office visit in the department: 11/25/24 Does the patient have a future office visit with this provider/department: Yes Requested Prescriptions Pending Prescriptions Disp Refills ergocalciferol 50,000 unit capsule (VITAMIN D2, DRISDOL) 12 capsule 3 Sig: Take 1 capsule by mouth one time a week. Per Patient, [facility] will not mail the Vitamin D2. Please send to [facility] [place]. Ayah Vanegas December 25, 2024 2:53 PM documented in this encounter [facility] 12-02-2024 History of Presen t illness Narrative Patient presents for B-12 injection. Denies any problems at this time. Patient instructed on any SE of medication, verbalized understanding and agreed to proceed with treatment. Tolerated injection well. Usha Alexander LPN documented in this encounter [facility] 12-02-2024 Note HNO ID: [id number] Author: USHA ALEXANDER LPN Service: ? Author Type: LICENSED NURSE Type: Progress Notes Filed: 12/02/2024 10:58 Note Text: Patient presents for B-12 injection. Denies any problems at this time. Patient instructed on any SE of medication, verbalized understanding and agreed to proceed with treatment. Tolerated injection well. Usha Alexander LPN [facility] 11-25-2024 Note HNO ID: [id number] Author: NEGRA UGALDE APRN.FILM CUTTER Service: ? Author Type: Nurse Practitioner Type: Progress Notes Filed: 11/25/2024 08:38 Note Text: CC: Patient presents with: Chest Congestion: Cough x 4 days HPI The patient consented to the use of [employer] software for draft documentation of the visit consistent with [facility]?s Notice of Privacy Practices. Cough: - Onset: Sunday, four days ago. - Described as horrible during coughing fits, with sensation deep in the chest. - Associated with postnasal drainage; unable to expectorate sputum. - Denies dyspnea, fever, chills, headache, or decreased appetite. - Sore throat has improved. - Energy level remains consistent with baseline. - No known exposure to sick contacts. - Denies history of asthma or other respiratory issues. - Has not performed any home COVID-19 tests. 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 BPH (benign prostatic hyperplasia) 07/30/2014 Cholelithiasis and acute cholecystitis without obstruction 08/16/2017 Elevated PSA 07/30/2014 Essential hypertension 03/05/2009 H/O MALIGNANT MELANOMA/PERS HX MALIG SKIN MELANOMA 06/03/2007 HYPERTENSION NOS 03/05/2009 Hypertrophy of prostate with urinary obstruction and other lower urinary tract symptoms (LUTS) 08/15/2007 Internal hemorrhoids without mention of complication MALIG NEOPL STOMACH NOS 09/04/2007 Pernicious anemia 09/13/2005 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 Ureterolithiasis 01/02/2017 right Venous insufficiency of both lower extremities 01/11/2022 PAST SURGICAL HISTORY Procedure Laterality Date COLONOSCOPY FLX DX W/COLLJ SPEC WHEN PFRMD 11/27/2006 COLONOSCOPY FLX DX W/COLLJ SPEC WHEN PFRMD 12/25/2014 COLONOSCOPY FLX DX W/COLLJ SPEC WHEN PFRMD 04/21/2020 Colonoscopy CYSTOSCOPY,URETEROSCOPY,LITHOTR IPSY Right 01/10/2017 Stent placement, removal, 01/10/17; 01/03/17 ESOPHAGOGASTRODUODENOSCOPY TRANSORAL DIAGNOSTIC 11/27/2006 LAPS SURG CHOLECYSTECTOMY W/CHOLANGIOGRAPHY 08/16/2017 [facility] PAST SURGICAL HISTORY OF November Total gastrectomy- stomach CA, Rtudi n Y jejunostomy PAST SURGICAL HISTORY OF Left 1989 left knee arthroscopy, PAST SURGICAL HISTORY OF Right 02/04/2015 Retroperitoneal cyst excision PROSTATE BIOPSY W/TRANSRECTAL US 04/29/2019 RPR 1ST INGUN HRNA AGE 5 YRS/> REDUCIBLE 10/03/2010 RIGHT SHOULDER SURGERY HX Right 2019 ALLERGIES Polysporin [Bacitracin-Polymyxin B] MEDICATIONS tamsulosin (FLOMAX) 0.4 mgTake 1 capsule by mouth daily at bedtime.Disp: 90 capsuleRfl: 4 lisinopril (ZESTRIL) 40 mg tabletTake 1 tablet by mouth once daily.Disp: 90 tabletRfl: 1 amLODIPine (NORVASC) 10 mg tabletTake 1 tablet by mouth once daily.Disp: 90 tabletRfl: 3 ergocalciferol 50,000 unit capsule (VITAMIN D2, DRISDOL)Take 1 capsule by mouth one time a week.Disp: 12 capsuleRfl: 3 folic acid 400 mcg tabletTake 1 tablet by mouth once daily.Disp: Rfl: 0 aspirin, enteric coated (ASPIR-81) 81 mg EC tabletTake 1 tablet by mouth once daily.Disp: 100 tabletRfl: 0 CENTRUM SILVER TABTake one(1) tablet daily.Disp: Rfl: 0 pyrilamine-dextromethorphan (CAPRON DMT) 30-30 mg tabTake 1 tablet by mouth every 6 hours as needed.Disp: 30 tabletRfl: 0 FAMILY HISTORY Problem Relation Age of Onset None Father failure to thrive None Mother failure to thrive Social History Tobacco Use Smoking status: Never Smokeless tobacco: Never Vaping Use Vaping status: Never Used Substance Use Topics Alcohol use: Yes Alcohol/week: 8.0 standard drinks of alcohol Types: 8 Glasses of Wine (5oz) per week Drug use: No Comment: not usually BP 132/80 Pulse 74 Temp 37.1 ?C (98.7 ?F) (Temporal) Resp 14 Wt 74.8 kg (165 lb) SpO2 98% BMI 23.51 kg/m? Physical Exam Vitals reviewed. Constitutional: General: He is not in acute distress. Appearance: He is ill-appearing. He is not toxic-appearing. HENT: Head: Normocephalic and atraumatic. Nose: Rhinorrhea present. No congestion. Mouth/Throat: Mouth: Mucous membranes are moist. Pharynx: Oropharynx is clear. Eyes: Conjunctiva/sclera: Conjunctivae normal. Cardiovascular: Rate and Rhythm: Normal rate and regular rhythm. Heart sounds: Murmur heard. Pulmonary: Effort: Pulmonary effort is normal. Breath sounds: Normal breath sounds. No wheezing, rhonchi or rales. Lymphadenopathy: Cervical: No cervical adenopathy. Skin: General: Skin is warm and dry. Neurological: Mental Status: He is alert. Assessment/Plan 1. Viral URI with cough (J06.9) - Onset of cough began on Sunday, with no associated sputum production, dyspnea, fever, chills, or headache. Sore throat has improved, and energy levels remain stable. - No known exposure to sick contacts and no history of asthma or other respiratory issues. - Physical examination (more content not included)... [facility] 11-25-2024 History of Presen t illness Narrative CC: Patient presents with: Chest Congestion: Cough x 4 days HPI The patient consented to the use of [employer] software for draft documentation of the visit consistent with [facility] s Notice of Privacy Practices. Cough: - Onset: Sunday, four days ago. - Described as horrible during coughing fits, with sensation deep in the chest. - Associated with postnasal drainage; unable to expectorate sputum. - Denies dyspnea, fever, chills, headache, or decreased appetite. - Sore throat has improved. - Energy level remains consistent with baseline. - No known exposure to sick contacts. - Denies history of asthma or other respiratory issues. - Has not performed any home COVID-19 tests. 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 BPH (benign prostatic hyperplasia) 07/30/2014 Cholelithiasis and acute cholecystitis without obstruction 08/16/2017 Elevated PSA 07/30/2014 Essential hypertension 03/05/2009 H/O MALIGNANT MELANOMA/PERS HX MALIG SKIN MELANOMA 06/03/2007 HYPERTENSION NOS 03/05/2009 Hypertrophy of prostate with urinary obstruction and other lower urinary tract symptoms (LUTS) 08/15/2007 Internal hemorrhoids without mention of complication MALIG NEOPL STOMACH NOS 09/04/2007 Pernicious anemia 09/13/2005 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 Ureterolithiasis 01/02/2017 right Venous insufficiency of both lower extremities 01/11/2022 PAST SURGICAL HISTORY Procedure Laterality Date COLONOSCOPY FLX DX W/COLLJ SPEC WHEN PFRMD 11/27/2006 COLONOSCOPY FLX DX W/COLLJ SPEC WHEN PFRMD 12/25/2014 COLONOSCOPY FLX DX W/COLLJ SPEC WHEN PFRMD 04/21/2020 Colonoscopy CYSTOSCOPY,URETEROSCOPY,LITHOTR IPSY Right 01/10/2017 Stent placement, removal, 01/10/17; 01/03/17 ESOPHAGOGASTRODUODENOSCOPY TRANSORAL DIAGNOSTIC 11/27/2006 LAPS SURG CHOLECYSTECTOMY W/CHOLANGIOGRAPHY 08/16/2017 [facility] PAST SURGICAL HISTORY OF November Total gastrectomy- stomach CA, Trudi n Y jejunostomy PAST SURGICAL HISTORY OF Left 1989 left knee arthroscopy, PAST SURGICAL HISTORY OF Right 02/04/2015 Retroperitoneal cyst excision PROSTATE BIOPSY W/TRANSRECTAL US 04/29/2019 RPR 1ST INGUN HRNA AGE 5 YRS/> REDUCIBLE 10/03/2010 RIGHT SHOULDER SURGERY HX Right 2019 ALLERGIES Polysporin [Bacitracin-Polymyxin B] MEDICATIONS tamsulosin (FLOMAX) 0.4 mg^Take 1 capsule by mouth daily at bedtime.^Disp: 90 capsule^Rfl: 4 lisinopril (ZESTRIL) 40 mg tablet^Take 1 tablet by mouth once daily.^Disp: 90 tablet^Rfl: 1 amLODIPine (NORVASC) 10 mg tablet^Take 1 tablet by mouth once daily.^Disp: 90 tablet^Rfl: 3 ergocalciferol 50,000 unit capsule (VITAMIN D2, DRISDOL)^Take 1 capsule by mouth one time a week.^Disp: 12 capsule^Rfl: 3 folic acid 400 mcg tablet^Take 1 tablet by mouth once daily.^Disp: ^Rfl: 0 aspirin, enteric coated (ASPIR-81) 81 mg EC tablet^Take 1 tablet by mouth once daily.^Disp: 100 tablet^Rfl: 0 CENTRUM SILVER TAB^Take one(1) tablet daily.^Disp: ^Rfl: 0 pyrilamine-dextromethorphan (CAPRON DMT) 30-30 mg tab^Take 1 tablet by mouth every 6 hours as needed.^Disp: 30 tablet^Rfl: 0 FAMILY HISTORY Problem Relation Age of Onset None Father failure to thrive None Mother failure to thrive Social History Tobacco Use Smoking status: Never Smokeless tobacco: Never Vaping Use Vaping status: Never Used Substance Use Topics Alcohol use: Yes Alcohol/week: 8.0 standard drinks of alcohol Types: 8 Glasses of Wine (5oz) per week Drug use: No Comment: not usually BP 132/80 Pulse 74 Temp 37.1 C (98.7 F) (Temporal) Resp 14 Wt 74.8 kg (165 lb) SpO2 98% BMI 23.51 kg/m Physical Exam Vitals reviewed. Constitutional: General: He is not in acute distress. Appearance: He is ill-appearing. He is not toxic-appearing. HENT: Head: Normocephalic and atraumatic. Nose: Rhinorrhea present. No congestion. Mouth/Throat: Mouth: Mucous membranes are moist. Pharynx: Oropharynx is clear. Eyes: Conjunctiva/sclera: Conjunctivae normal. Cardiovascular: Rate and Rhythm: Normal rate and regular rhythm. Heart sounds: Murmur heard. Pulmonary: Effort: Pulmonary effort is normal. Breath sounds: Normal breath sounds. No wheezing, rhonchi or rales. Lymphadenopathy: Cervical: No cervical adenopathy. Skin: General: Skin is warm and dry. Neurological: Mental Status: He is alert. Assessment/Plan 1. Viral URI with cough (J06.9) - Onset of cough began on Sunday, with no associated sputum production, dyspnea, fever, chills, or headache. Sore throat has improved, and energy levels remain stable. - No known exposure to sick contacts and no history of asthma or other respiratory issues. - Physical examination reveals clear lung bravo, with no evidence of bronchitis or pneumonia. - Prescribed combination medication containing a cough suppressant and antihistamine to address cough and postnasal drainage; prescription sent to [facility] pharmacy. - Advised increased fluid intake and use of a humidifier at night to alleviate symptoms. - Discussed the option of a COVID-19 test, but patient declined. Prescription instructions reviewed with patient as applicable. Potential red flag symptoms discussed with the patient. Reviewed appropriate action plan to take if red flag symptoms occur. Patient agreeable to treatment plan. Negra Ugalde APRN.CNP Medical Decision Making: Problems: Low: Acute, uncomplicated illness or injury Risk: Low: Low risk from testing/treatment Moderate: Drug management Medical Decision Making Level: 3 - Low documented in this encounter [facility] 11-25-2024 Instructions Negra Ugalde APRN.CNP - 11/25/2024 8:35 AM EDT - Prescription for a combination medication with a cough suppressant and antihistamine sent to [facility] pharmacy. - Drink plenty of fluids to help break up thick drainage. - Use a humidifier at night to alleviate coughing. - Let me know on Sunday if you are not feeling any better documented in this encounter [facility] 11-10-2024 Note HNO ID: [id number] Author: ?, ?, ? Service: ? Author Type: LICENSED NURSE Type: Progress Notes Filed: 11/10/2024 09:18 Note Text: Patient presents for B-12 injection. Denies any problems at this time. Patient instructed on any SE of medication, verbalized understanding and agreed to proceed with treatment. Tolerated injection well. Ramonita Trevino LPN [facility] 10-13-2024 Note HNO ID: [id number] Author: ?, ?, ? Service: ? Author Type: LICENSED NURSE Type: Progress Notes Filed: 10/13/2024 09:18 Note Text: Patient presents for B-12 injection. Denies any problems at this time. Patient instructed on any SE of medication, verbalized understanding and agreed to proceed with treatment. Tolerated injection well. Ramonita Trevino LPN [facility] 10-13-2024 History of Presen t illness Narrative Patient presents for B-12 injection. Denies any problems at this time. Patient instructed on any SE of medication, verbalized understanding and agreed to proceed with treatment. Tolerated injection well. Ramonita Trevino LPN documented in this encounter [facility] 09-24-2024 Telephone encounter Note Patient scheduled for nurse visit 10/13/24 to receive B-[address]. [address] order at this time. Ramonita Trevino LPN [facility] 09-24-2024 Miscellaneous Notes Patient scheduled for nurse visit 10/13/24 to receive B-[address] order at this time. Ramonita Trevino LPN documented in this encounter [facility] 09-08-2024 Note HNO ID: [id number] Author: RAMONITA TREVINO LPN Service: ? Author Type: LICENSED NURSE Type: Progress Notes Filed: 09/08/2024 08:47 Note Text: Patient presents for B-12 injection. Denies any problems at this time. Patient instructed on any SE of medication, verbalized understanding and agreed to proceed with treatment. Tolerated injection well. Ramonita Trevino LPN [facility] 09-08-2024 History of Presen t illness Narrative Patient presents for B-12 injection. Denies any problems at this time. Patient instructed on any SE of medication, verbalized understanding and agreed to proceed with treatment. Tolerated injection well. Ramonita Trevino LPN documented in this encounter [facility] 08-28-2024 Note HNO ID: [id number] Author: PIYUSH RIVERA MD Service: ? Author Type: Physician Type: Progress Notes Filed: 08/28/2024 14:17 Note Text: This note was created using Peelter. Subjective Heriberto Peñaloza is a 74 year old male. He was doing well. Hypertension was controlled. He was at the end of a minor upper respiratory infection. He was at the end of low back strain related to chores. Left leg weakness was mild and stable. Review of Systems Constitutional: Negative for fatigue and fever. HENT: Negative for congestion. Respiratory: Positive for cough. Negative for shortness of breath and wheezing. Cardiovascular: Negative for chest pain, palpitations and leg swelling. Neurological: Negative. ACTIVE PROBLEM LIST Pernicious Anemia H/O MALIGNANT MELANOMA/PERS HX MALIG SKIN MELANOMA Essential Hypertension Other Seborrheic Keratoses Vitamin D Deficiency Bph (Benign Prostatic Hyperplasia) Elevated Psa Venous Insufficiency of Both Lower Extremities Left Leg Weakness Raynaud's Phenomenon Without Gangrene Aneurysm of Ascending Aorta Without Rupture (Hcc) Social History Tobacco Use Smoking status: Never Smokeless tobacco: Never Vaping Use Vaping status: Never Used Substance Use Topics Alcohol use: Yes Alcohol/week: 8.0 standard drinks of alcohol Types: 8 Glasses of Wine (5oz) per week Drug use: No Comment: not usually Current Outpatient Medications Medication Sig tamsulosin (FLOMAX) 0.4 mg Take 1 capsule by mouth daily at bedtime. lisinopril (ZESTRIL) 40 mg tablet Take 1 tablet by mouth once daily. amLODIPine (NORVASC) 10 mg tablet Take 1 tablet by mouth once daily. ergocalciferol 50,000 unit capsule (VITAMIN D2, DRISDOL) Take 1 capsule by mouth one time a week. folic acid 400 mcg tablet Take 1 tablet by mouth once daily. aspirin, enteric coated (ASPIR-81) 81 mg EC tablet Take 1 tablet by mouth once daily. CENTRUM SILVER TAB Take one(1) tablet daily. amLODIPine (NORVASC) 10 mg tablet Take 1 tablet by mouth once daily for 14 days. Current Facility-Administered Medications Medication Dose Route Frequency cyanocobalamin 1,000 mcg injection 1,000 mcg INTRAMUSCULAR q 1 MONTH Objective BP 118/68 (BP Site: Left Arm, BP Position: Sitting, BP Cuff Size: Large Adult) Pulse 72 Temp 36.8 ?C (98.2 ?F) (Temporal) Resp 18 Wt 75.7 kg (166 lb 14.2 oz) BMI 23.78 kg/m? Physical Exam HENT: Nose: No rhinorrhea. Cardiovascular: Rate and Rhythm: Normal rate and regular rhythm. Heart sounds: No murmur heard. No gallop. Pulmonary: Effort: No respiratory distress. Breath sounds: No wheezing or rales. Comments: Transient rhonchi, right mid lung. Musculoskeletal: Right lower leg: No edema. Left lower leg: No edema. Neurological: Mental Status: He is alert. Assessment and Plan 1. Essential hypertension - ICD9: 401.9, ICD10: I10 (primary diagnosis) - Controlled - Continue current medications - LIPID PANEL BASIC - COMPREHENSIVE METABOLIC PANEL 2. Encounter for immunization - ICD9: V03.89, ICD10: Z23 - PFIZER-BIONTECH COVID-19 VACCINE AGE 12+ YR (COMIRNATY) 3. Pernicious anemia - ICD9: 281.0, ICD10: D51.0 - Supplemented. - COMPLETE BLOOD COUNT - VITAMIN B12 4. Vitamin D deficiency - ICD9: 268.9, ICD10: E55.9 - supplemented. Piyush Rivera MD [facility] 08-28-2024 History of Presen t illness Narrative This note was created using NoteWriter. Subjective Heriberto Peñaloza is a 74 year old male. He was doing well. Hypertension was controlled. He was at the end of a minor upper respiratory infection. He was at the end of low back strain related to chores. Left leg weakness was mild and stable. Review of Systems Constitutional: Negative for fatigue and fever. HENT: Negative for congestion. Respiratory: Positive for cough. Negative for shortness of breath and wheezing. Cardiovascular: Negative for chest pain, palpitations and leg swelling. Neurological: Negative. ACTIVE PROBLEM LIST Pernicious Anemia H/O MALIGNANT MELANOMA/PERS HX MALIG SKIN MELANOMA Essential Hypertension Other Seborrheic Keratoses Vitamin D Deficiency Bph (Benign Prostatic Hyperplasia) Elevated Psa Venous Insufficiency of Both Lower Extremities Left Leg Weakness Raynaud's Phenomenon Without Gangrene Aneurysm of Ascending Aorta Without Rupture (Hcc) Social History Tobacco Use Smoking status: Never Smokeless tobacco: Never Vaping Use Vaping status: Never Used Substance Use Topics Alcohol use: Yes Alcohol/week: 8.0 standard drinks of alcohol Types: 8 Glasses of Wine (5oz) per week Drug use: No Comment: not usually Current Outpatient Medications Medication Sig tamsulosin (FLOMAX) 0.4 mg Take 1 capsule by mouth daily at bedtime. lisinopril (ZESTRIL) 40 mg tablet Take 1 tablet by mouth once daily. amLODIPine (NORVASC) 10 mg tablet Take 1 tablet by mouth once daily. ergocalciferol 50,000 unit capsule (VITAMIN D2, DRISDOL) Take 1 capsule by mouth one time a week. folic acid 400 mcg tablet Take 1 tablet by mouth once daily. aspirin, enteric coated (ASPIR-81) 81 mg EC tablet Take 1 tablet by mouth once daily. CENTRUM SILVER TAB Take one(1) tablet daily. amLODIPine (NORVASC) 10 mg tablet Take 1 tablet by mouth once daily for 14 days. Current Facility-Administered Medications Medication Dose Route Frequency cyanocobalamin 1,000 mcg injection 1,000 mcg INTRAMUSCULAR q 1 MONTH Objective BP 118/68 (BP Site: Left Arm, BP Position: Sitting, BP Cuff Size: Large Adult) Pulse 72 Temp 36.8 C (98.2 F) (Temporal) Resp 18 Wt 75.7 kg (166 lb 14.2 oz) BMI 23.78 kg/m Physical Exam HENT: Nose: No rhinorrhea. Cardiovascular: Rate and Rhythm: Normal rate and regular rhythm. Heart sounds: No murmur heard. No gallop. Pulmonary: Effort: No respiratory distress. Breath sounds: No wheezing or rales. Comments: Transient rhonchi, right mid lung. Musculoskeletal: Right lower leg: No edema. Left lower leg: No edema. Neurological: Mental Status: He is alert. Assessment and Plan 1. Essential hypertension - ICD9: 401.9, ICD10: I10 (primary diagnosis) - Controlled - Continue current medications - LIPID PANEL BASIC - COMPREHENSIVE METABOLIC PANEL 2. Encounter for immunization - ICD9: V03.89, ICD10: Z23 - PFIZER-BIONTECH COVID-19 VACCINE AGE 12+ YR (COMIRNATY) 3. Pernicious anemia - ICD9: 281.0, ICD10: D51.0 - Supplemented. - COMPLETE BLOOD COUNT - VITAMIN B12 4. Vitamin D deficiency - ICD9: 268.9, ICD10: E55.9 - supplemented. Piyush Rivera MD documented in this encounter [facility] 08-11-2024 Note HNO ID: [id number] Author: RAMONITA TREVINO LPN Service: ? Author Type: LICENSED NURSE Type: Progress Notes Filed: 08/11/2024 09:43 Note Text: Patient presents for B-12 injection. Denies any problems at this time. Patient instructed on any SE of medication, verbalized understanding and agreed to proceed with treatment. Tolerated injection well. Ramonita Trevino LPN [facility] 08-11-2024 History of Presen t illness Narrative Patient presents for B-12 injection. Denies any problems at this time. Patient instructed on any SE of medication, verbalized understanding and agreed to proceed with treatment. Tolerated injection well. Ramonita Trevino LPN documented in this encounter [facility] 07-07-2024 Note HNO ID: [id number] Author: RAMONITA TREVINO LPN Service: ? Author Type: LICENSED NURSE Type: Progress Notes Filed: 07/07/2024 09:05 Note Text: Patient presents for B-12 injection. Denies any problems at this time. Patient instructed on any SE of medication, verbalized understanding and agreed to proceed with treatment. Tolerated injection well. Ramonita Trevino LPN [facility] 07-07-2024 History of Presen t illness Narrative Patient presents for B-12 injection. Denies any problems at this time. Patient instructed on any SE of medication, verbalized understanding and agreed to proceed with treatment. Tolerated injection well. Ramonita Trevino LPN documented in this encounter [facility] 06-09-2024 Telephone encounter Note Prescription Refill Information The patient has been identified by name and date of : Yes Caregiver verified no other encounters exist for this prescription request: Yes Caregiver confirmed with patient/requestor that no other refills are due, in the near future, with this provider at this time: Yes The last office visit in the department: 05/19/24 Does the patient have a future office visit with this provider/department: Yes Requested Prescriptions Pending Prescriptions Disp Refills tamsulosin (FLOMAX) 0.4 mg 90 capsule 4 Sig: Take 1 capsule by mouth daily at bedtime. Noreen Bright LPN June 09, 2024 3:44 PM [facility] 06-09-2024 Miscellaneous Notes Prescription Refill Information The patient has been identified by name and date of : Yes Caregiver verified no other encounters exist for this prescription request: Yes Caregiver confirmed with patient/requestor that no other refills are due, in the near future, with this provider at this time: Yes The last office visit in the department: 05/19/24 Does the patient have a future office visit with this provider/department: Yes Requested Prescriptions Pending Prescriptions Disp Refills tamsulosin (FLOMAX) 0.4 mg 90 capsule 4 Sig: Take 1 capsule by mouth daily at bedtime. Noreen Bright LPN June 09, 2024 3:44 PM Prescription Refill Information The patient has been identified by name and date of : Yes Caregiver verified no other encounters exist for this prescription request: Yes Caregiver confirmed with patient/requestor that no other refills are due, in the near future, with this provider at this time: Yes The last office visit in the department: 05/19/2024 Does the patient have a future office visit with this provider/department: Yes Requested Prescriptions Pending Prescriptions Disp Refills tamsulosin (FLOMAX) 0.4 mg 90 capsule 4 Sig: Take 1 capsule by mouth daily at bedtime. Mail order pharmacy requesting a short term 14 day supply is sent to local pharmacy while they prepare mail order Radha Garcias June 09, 2024 11:13 AM documented in this encounter [facility] 06-09-2024 Telephone encounter Note Prescription Refill Information The patient has been identified by name and date of : Yes Caregiver verified no other encounters exist for this prescription request: Yes Caregiver confirmed with patient/requestor that no other refills are due, in the near future, with this provider at this time: Yes The last office visit in the department: 05/19/2024 Does the patient have a future office visit with this provider/department: Yes Requested Prescriptions Pending Prescriptions Disp Refills tamsulosin (FLOMAX) 0.4 mg 90 capsule 4 Sig: Take 1 capsule by mouth daily at bedtime. Mail order pharmacy requesting a short term 14 day supply is sent to local pharmacy while they prepare mail order Radha Garcias June 09, 2024 11:13 AM [facility] 06-09-2024 Telephone encounter Note Patient unable to get mail order until 06/13. Is currently out, asking for short term supply be sent to [facility]. [facility] 06-09-2024 Miscellaneous Notes Patient unable to get mail order until 06/13. Is currently out, asking for short term supply be sent to [facility]. documented in this encounter [facility] 06-09-2024 Note HNO ID: [id number] Author: RAMONITA TREVINO LPN Service: ? Author Type: LICENSED NURSE Type: Progress Notes Filed: 06/09/2024 09:45 Note Text: Patient presents for B-12 injection. Denies any problems at this time. Patient instructed on any SE of medication, verbalized understanding and agreed to proceed with treatment. Tolerated injection well. Ramonita Trevino LPN [facility] 06-09-2024 History of Presen t illness Narrative Patient presents for B-12 injection. Denies any problems at this time. Patient instructed on any SE of medication, verbalized understanding and agreed to proceed with treatment. Tolerated injection well. Ramonita Trevino LPN documented in this encounter [facility] 05-19-2024 Note HNO ID: [id number] Author: PIYUSH RIVERA MD Service: ? Author Type: Physician Type: Progress Notes Filed: 05/19/2024 15:30 Note Text: This note was created using Druva. Subjective Heriberto Peñaloza is a 73 year old male. He had Covid and cough resolved. CXR normalized. Echo was essentially unremarkable and thoracic aorta size was unchanged compared to 2015. Review of Systems Constitutional: Negative for fatigue. Respiratory: Negative for cough and shortness of breath. Cardiovascular: Negative for chest pain. Musculoskeletal: Negative. Neurological: Negative. ACTIVE PROBLEM LIST Pernicious Anemia H/O MALIGNANT MELANOMA/PERS HX MALIG SKIN MELANOMA Essential Hypertension Other Seborrheic Keratoses Vitamin D Deficiency Bph (Benign Prostatic Hyperplasia) Elevated Psa Venous Insufficiency of Both Lower Extremities Left Leg Weakness Raynaud's Phenomenon Without Gangrene Aneurysm of Ascending Aorta Without Rupture (Hcc) Social History Tobacco Use Smoking status: Never Smokeless tobacco: Never Vaping Use Vaping status: Never Used Substance Use Topics Alcohol use: Yes Alcohol/week: 8.0 standard drinks of alcohol Types: 8 Glasses of Wine (5oz) per week Drug use: No Comment: not usually Current Outpatient Medications Medication Sig lisinopril (ZESTRIL) 20 mg tablet Take 1 tablet by mouth once daily. amLODIPine (NORVASC) 10 mg tablet Take 1 tablet by mouth once daily. ergocalciferol 50,000 unit capsule (VITAMIN D2, DRISDOL) Take 1 capsule by mouth one time a week. tamsulosin ER (FLOMAX) 0.4 mg cp24 Take 1 capsule by mouth daily at bedtime. folic acid 400 mcg tablet Take 1 tablet by mouth once daily. aspirin, enteric coated (ASPIR-81) 81 mg EC tablet Take 1 tablet by mouth once daily. CENTRUM SILVER TAB Take one(1) tablet daily. Current Facility-Administered Medications Medication Dose Route Frequency cyanocobalamin 1,000 mcg injection 1,000 mcg INTRAMUSCULAR q 1 MONTH Objective BP 135/72 (BP Site: Left Arm, BP Position: Sitting, BP Cuff Size: Large Adult) Pulse 71 Temp 36.1 ?C (97 ?F) (Temporal) Wt 75.1 kg (165 lb 9.1 oz) SpO2 98% BMI 23.59 kg/m? Physical Exam Constitutional: Appearance: Normal appearance. Cardiovascular: Rate and Rhythm: Normal rate and regular rhythm. Heart sounds: No murmur heard. No gallop. Pulmonary: Breath sounds: Normal breath sounds. Test results pertinent to today's visit were reviewed and discussed with the patient. Assessment and Plan 1. Essential hypertension - ICD9: 401.9, ICD10: I10 (primary diagnosis) - Improving control - Increase lisinopril - Recommend home blood pressure monitoring, to bring results to next visit - LISINOPRIL 40 MG TABLET 2. Need for influenza vaccination - ICD9: V04.81, ICD10: Z23 - INFLUENZA VACCINE, PRSV FREE, AGE 65+ YR, HIGH DOSE, TRIVALENT (FLUZONE HIGH-DOSE) 3. Aneurysm of ascending aorta without rupture (HCC) - ICD9: 441.2, ICD10: I71.21 Stable. Piyush Rivera MD [facility] 05-19-2024 History of Presen t illness Narrative This note was created using NoteWriter. Subjective Heriberto Peñaloza is a 73 year old male. He had Covid and cough resolved. CXR normalized. Echo was essentially unremarkable and thoracic aorta size was unchanged compared to 2015. Review of Systems Constitutional: Negative for fatigue. Respiratory: Negative for cough and shortness of breath. Cardiovascular: Negative for chest pain. Musculoskeletal: Negative. Neurological: Negative. ACTIVE PROBLEM LIST Pernicious Anemia H/O MALIGNANT MELANOMA/PERS HX MALIG SKIN MELANOMA Essential Hypertension Other Seborrheic Keratoses Vitamin D Deficiency Bph (Benign Prostatic Hyperplasia) Elevated Psa Venous Insufficiency of Both Lower Extremities Left Leg Weakness Raynaud's Phenomenon Without Gangrene Aneurysm of Ascending Aorta Without Rupture (Hcc) Social History Tobacco Use Smoking status: Never Smokeless tobacco: Never Vaping Use Vaping status: Never Used Substance Use Topics Alcohol use: Yes Alcohol/week: 8.0 standard drinks of alcohol Types: 8 Glasses of Wine (5oz) per week Drug use: No Comment: not usually Current Outpatient Medications Medication Sig lisinopril (ZESTRIL) 20 mg tablet Take 1 tablet by mouth once daily. amLODIPine (NORVASC) 10 mg tablet Take 1 tablet by mouth once daily. ergocalciferol 50,000 unit capsule (VITAMIN D2, DRISDOL) Take 1 capsule by mouth one time a week. tamsulosin ER (FLOMAX) 0.4 mg cp24 Take 1 capsule by mouth daily at bedtime. folic acid 400 mcg tablet Take 1 tablet by mouth once daily. aspirin, enteric coated (ASPIR-81) 81 mg EC tablet Take 1 tablet by mouth once daily. CENTRUM SILVER TAB Take one(1) tablet daily. Current Facility-Administered Medications Medication Dose Route Frequency cyanocobalamin 1,000 mcg injection 1,000 mcg INTRAMUSCULAR q 1 MONTH Objective BP 135/72 (BP Site: Left Arm, BP Position: Sitting, BP Cuff Size: Large Adult) Pulse 71 Temp 36.1 C (97 F) (Temporal) Wt 75.1 kg (165 lb 9.1 oz) SpO2 98% BMI 23.59 kg/m Physical Exam Constitutional: Appearance: Normal appearance. Cardiovascular: Rate and Rhythm: Normal rate and regular rhythm. Heart sounds: No murmur heard. No gallop. Pulmonary: Breath sounds: Normal breath sounds. Test results pertinent to today's visit were reviewed and discussed with the patient. Assessment and Plan 1. Essential hypertension - ICD9: 401.9, ICD10: I10 (primary diagnosis) - Improving control - Increase lisinopril - Recommend home blood pressure monitoring, to bring results to next visit - LISINOPRIL 40 MG TABLET 2. Need for influenza vaccination - ICD9: V04.81, ICD10: Z23 - INFLUENZA VACCINE, PRSV FREE, AGE 65+ YR, HIGH DOSE, TRIVALENT (FLUZONE HIGH-DOSE) 3. Aneurysm of ascending aorta without rupture (HCC) - ICD9: 441.2, ICD10: I71.21 Stable. Piyush Rivera MD documented in this encounter [facility] 05-19-2024 Telephone encounter Note Patient notified. Fatou Rodriguez LPN [facility] 05-19-2024 Miscellaneous Notes Patient notified. Fatou Rodriguez LPN Phoned patient left message to return call and ask to speak to a nurse. ----- Message from Piyush Rivera MD sent at 05/17/2024 3:57 PM EDT ----- chest X-ray within normal limits. documented in this encounter [facility] 05-19-2024 Telephone encounter Note Phoned patient left message to return call and ask to speak to a nurse. [facility] 05-19-2024 Telephone encounter Note ----- Message from Piyush Rivera MD sent at 05/17/2024 3:57 PM EDT ----- chest X-ray within normal limits. [facility] 05-14-2024 History of Presen t illness Narrative Radiology Service Progress Note PATIENT NAME: Heriberto Peñaloza DATE OF SERVICE: May 14, 2024 TIME: 8:26 AM PATIENT IDENTITY VERIFICATION COMPLETED USING TWO (2) IDENTIFIERS: Name and Date of confirmed by patient verbally. FALL SCREENING: Has the patient had 2 falls in the last year or 1 fall with injury or currently using an Ambulatory Assistive Device (Walker, Cane, Wheelchair, Crutches, etc.)? No PATIENT GENDER DATA: Male PATIENT RELEVANT IMPLANT DATA REVIEWED: Not Applicable PATIENT PRESENTS WITH AN IMPLANTABLE OR ATTACHED STEAM DISTRIBUTION SUPERVISOR: No RADIOLOGY DEPARTMENT: General X-ray: Exam(s) Completed: Chest X-Ray PERIPHERAL IV DATA: Not applicable SIGNED BY: RT Ruslan(R) May 14, 2024 8:26 AM documented in this encounter [facility] 05-14-2024 Note HNO ID: [id number] Author: ARAM PINA RT(R) Service: Radiology Author Type: Technologist Type: Progress Notes Filed: 05/14/2024 08:32 Note Text: Radiology Service Progress Note PATIENT NAME: Heriberto Peñaloza DATE OF SERVICE: May 14, 2024 TIME: 8:26 AM PATIENT IDENTITY VERIFICATION COMPLETED USING TWO (2) IDENTIFIERS: Name and Date of confirmed by patient verbally. FALL SCREENING: Has the patient had 2 falls in the last year or 1 fall with injury or currently using an Ambulatory Assistive Device (Walker, Cane, Wheelchair, Crutches, etc.)? No PATIENT GENDER DATA: Male PATIENT RELEVANT IMPLANT DATA REVIEWED: Not Applicable PATIENT PRESENTS WITH AN IMPLANTABLE OR ATTACHED STEAM DISTRIBUTION SUPERVISOR: No RADIOLOGY DEPARTMENT: General X-ray: Exam(s) Completed: Chest X-Ray PERIPHERAL IV DATA: Not applicable SIGNED BY: RT Ruslan(R) May 14, 2024 8:26 AM [facility] 05-14-2024 Telephone encounter Note Improved BP. The following approved medication requests have been transmitted electronically. Requested Prescriptions Signed Prescriptions Disp Refills lisinopril (ZESTRIL) 20 mg tablet 30 tablet 5 Sig: Take 1 tablet by mouth once daily. Authorizing Provider: PIYUSH RIVERA MD [facility] 05-14-2024 Miscellaneous Notes Improved BP. The following approved medication requests have been transmitted electronically. Requested Prescriptions Signed Prescriptions Disp Refills lisinopril (ZESTRIL) 20 mg tablet 30 tablet 5 Sig: Take 1 tablet by mouth once daily. Authorizing Provider: PIYUSH RIVERA MD Patient here for B-12 nurse visit. BP checked at this time d/t recent increase in Linsinopril to 20mg daily. Tolerating medication well with no problems. Patient is here for a blood pressure check. Initial BP: 135/71 P 74 BP Daniel average: 139/68 P 72 Repeat BP Check: 133/70 P43. #1 144/70 P73 #2 144/66 P71 #3 138/65 P71 #4 135/69 P72 #5 139/67 P71 #6 Does patient report chest pain? No Does patient report dizziness? No Does patient report shortness of breath? No Any complaints voiced by patient? No Medications reviewed? Yes Current Outpatient Medications Medication Sig lisinopril (ZESTRIL) 10 mg tablet Take 2 tablets by mouth once daily. amLODIPine (NORVASC) 10 mg tablet Take 1 tablet by mouth once daily. ergocalciferol 50,000 unit capsule (VITAMIN D2, DRISDOL) Take 1 capsule by mouth one time a week. tamsulosin ER (FLOMAX) 0.4 mg cp24 Take 1 capsule by mouth daily at bedtime. folic acid 400 mcg tablet Take 1 tablet by mouth once daily. aspirin, enteric coated (ASPIR-81) 81 mg EC tablet Take 1 tablet by mouth once daily. CENTRUM SILVER TAB Take one(1) tablet daily. Current Facility-Administered Medications Medication Dose Route Frequency cyanocobalamin 1,000 mcg injection 1,000 mcg INTRAMUSCULAR q 1 MONTH Will review with Piyush Rivera MD Next Appointment: 05/19/24 Will need refill of higher Lisinopril dosing. Ramonita Trevino LPN documented in this encounter [facility] 05-12-2024 Telephone encounter Note Patient here for B-12 nurse visit. BP checked at this time d/t recent increase in Linsinopril to 20mg daily. Tolerating medication well with no problems. Patient is here for a blood pressure check. Initial BP: 135/71 P 74 BP Daniel average: 139/68 P 72 Repeat BP Check: 133/70 P43. #1 144/70 P73 #2 144/66 P71 #3 138/65 P71 #4 135/69 P72 #5 139/67 P71 #6 Does patient report chest pain? No Does patient report dizziness? No Does patient report shortness of breath? No Any complaints voiced by patient? No Medications reviewed? Yes Current Outpatient Medications Medication Sig lisinopril (ZESTRIL) 10 mg tablet Take 2 tablets by mouth once daily. amLODIPine (NORVASC) 10 mg tablet Take 1 tablet by mouth once daily. ergocalciferol 50,000 unit capsule (VITAMIN D2, DRISDOL) Take 1 capsule by mouth one time a week. tamsulosin ER (FLOMAX) 0.4 mg cp24 Take 1 capsule by mouth daily at bedtime. folic acid 400 mcg tablet Take 1 tablet by mouth once daily. aspirin, enteric coated (ASPIR-81) 81 mg EC tablet Take 1 tablet by mouth once daily. CENTRUM SILVER TAB Take one(1) tablet daily. Current Facility-Administered Medications Medication Dose Route Frequency cyanocobalamin 1,000 mcg injection 1,000 mcg INTRAMUSCULAR q 1 MONTH Will review with Piyush Rivera MD Next Appointment: 05/19/24 Will need refill of higher Lisinopril dosing. Ramonita Trevino LPN [facility] 05-12-2024 Note HNO ID: [id number] Author: RAMONITA TREVINO LPN Service: ? Author Type: LICENSED NURSE Type: Progress Notes Filed: 05/12/2024 09:14 Note Text: Patient presents for B-12 injection. Denies any problems at this time. Patient instructed on any SE of medication, verbalized understanding and agreed to proceed with treatment. Tolerated injection well. Ramonita Trevino LPN [facility] 05-12-2024 History of Presen t illness Narrative Patient presents for B-12 injection. Denies any problems at this time. Patient instructed on any SE of medication, verbalized understanding and agreed to proceed with treatment. Tolerated injection well. Ramnoita Trevino LPN documented in this encounter [facility] 04-16-2024 Instructions Piyush Rivera MD - 04/16/2024 9:01 AM EDT Increase lisinopril to 20 mg daily. Chest xray in 3 weeks. documented in this encounter [facility] 04-16-2024 Note HNO ID: [id number] Author: PIYUSH RIVERA MD Service: ? Author Type: Physician Type: Progress Notes Filed: 04/16/2024 09:10 Note Text: This note was created using [employer]. Subjective Heriberto Peñaloza is a 73 year old male. He developed a cough more than one week ago, and had no other symptoms. He tested + for Covid, and the finding of pleural effusion prompted other studies with borderline elevation of d dimer and BNP. He felt back to normal. He had no cardiac disease. He had no leg pain, no inactivity or prolonged immobility, no history of PE or DVT. Review of Systems Constitutional: Negative for chills, fatigue and fever. Respiratory: Negative for chest tightness and shortness of breath. Cardiovascular: Negative for chest pain, palpitations and leg swelling. Gastrointestinal: Negative. Musculoskeletal: Negative for myalgias. ACTIVE PROBLEM LIST Pernicious Anemia H/O MALIGNANT MELANOMA/PERS HX MALIG SKIN MELANOMA Essential Hypertension Other Seborrheic Keratoses Vitamin D Deficiency Bph (Benign Prostatic Hyperplasia) Elevated Psa Venous Insufficiency of Both Lower Extremities Left Leg Weakness Raynaud's Phenomenon Without Gangrene Current Outpatient Medications Medication Sig lisinopril (ZESTRIL) 10 mg tablet Take 1 tablet by mouth once daily. amLODIPine (NORVASC) 10 mg tablet Take 1 tablet by mouth once daily. ergocalciferol 50,000 unit capsule (VITAMIN D2, DRISDOL) Take 1 capsule by mouth one time a week. tamsulosin ER (FLOMAX) 0.4 mg cp24 Take 1 capsule by mouth daily at bedtime. folic acid 400 mcg tablet Take 1 tablet by mouth once daily. aspirin, enteric coated (ASPIR-81) 81 mg EC tablet Take 1 tablet by mouth once daily. CENTRUM SILVER TAB Take one(1) tablet daily. Current Facility-Administered Medications Medication Dose Route Frequency cyanocobalamin 1,000 mcg injection 1,000 mcg INTRAMUSCULAR q 1 MONTH Objective BP 146/78 (BP Site: Left Arm, BP Position: Sitting, BP Cuff Size: Large Adult) Pulse 69 Temp 36.4 ?C (97.5 ?F) (Temporal) Resp 20 Wt 73.6 kg (162 lb 4.1 oz) BMI 23.12 kg/m? Physical Exam Constitutional: Appearance: Normal appearance. He is not ill-appearing or diaphoretic. Cardiovascular: Rate and Rhythm: Normal rate and regular rhythm. Heart sounds: No murmur heard. No gallop. Pulmonary: Effort: No respiratory distress. Breath sounds: Normal breath sounds. No wheezing or rales. Musculoskeletal: General: No tenderness. Right lower leg: No edema. Left lower leg: No edema. Neurological: Mental Status: He is alert. Latest Ref Rng 04/14/2024 WBC 3.70 - 11.00 k/uL 6.06 RBC 4.20 - 6.00 m/uL 4.66 Hemoglobin 13.0 - 17.0 g/dL 13.1 Hematocrit 39.0 - 51.0 % 41.2 MCV 80.0 - 100.0 fL 88.4 MCH 26.0 - 34.0 pg 28.1 MCHC 30.5 - 36.0 g/dL 31.8 RDW-CV 11.5 - 15.0 % 14.9 Platelet Count 150 - 400 k/uL 202 MPV 9.0 - 12.7 fL 11.9 Neut% % 53.1 Abs Neut (ANC) 1.45 - 7.50 k/uL 3.22 Lymph% % 33.2 Abs Lymph 1.00 - 4.00 k/uL 2.01 Stanley% % 11.1 Abs Stanley <0.87 k/uL 0.67 Eosin% % 2.0 Abs Eosin <0.46 k/uL 0.12 Baso% % 0.3 Abs Baso <0.11 k/uL <0.03 Immature Gran % % 0.3 IMMATURE GRANS (ABS) <0.10 k/uL <0.03 NRBC /100 WBC 0.0 Absolute nRBC <0.01 k/uL <0.01 DTYPE Auto Protein, Total 6.3 - 8.0 g/dL 6.9 Albumin 3.9 - 4.9 g/dL 4.0 Calcium 8.5 - 10.2 mg/dL 8.9 Bilirubin, Total 0.2 - 1.3 mg/dL 0.4 Alkaline Phosphatase 38 - 113 U/L 86 AST 14 - 40 U/L 17 ALT 10 - 54 U/L 14 Glucose 74 - 99 mg/dL 79 BUN 9 - 24 mg/dL 18 Creatinine 0.73 - 1.22 mg/dL 1.18 Sodium 136 - 144 mmol/L 142 Potassium 3.7 - 5.1 mmol/L 4.5 Chloride 98 - 107 mmol/L 106 CO2 22 - 30 mmol/L 24 Anion Gap 8 - 15 mmol/L 12 eGFR >=60 mL/min/1.73m? 65 d Dimer <500 ng/mL FEU 740 (H) D Dimer Age-related Cutoff ng/mL FEU 730 COVID 19 Result See comment Detected ! NT Pro BNP <125 pg/mL 218 (H) Legend: (H) High ! Abnormal EKG RESULTS: normal sinus rhythm, LBBB, RBBB, and T wave abnormality lateral leads. Assessment and Plan 1. COVID-19 - ICD9: 079.89, ICD10: U07.1 (primary diagnosis) - Resolving. Continue precautions. 2. Pleural effusion - ICD9: 511.9, ICD10: J90 I suspect viral. Recheck in 3 weeks. - ECG COMPLETE - SODIUM CHLORIDE 0.9 % (FLUSH) INJECTION SYRINGE - XR CHEST 2V FRONTAL/LAT 3. Abnormal blood chemistry - ICD9: 790.6, ICD10: R79.9 Unclear significance. Patient is clinically fine. See #5. - SODIUM CHLORIDE 0.9 % (FLUSH) INJECTION SYRINGE 4. Essential hypertension - ICD9: 401.9, ICD10: I10 Not at goal. We have been increasing lisinopril. - LISINOPRIL 10 MG TABLET. Increase to 20 mg (2 tablets) daily. BP recheck scheduled. 5. Abnormal EKG - ICD9: 794.31, ICD10: R94.31 Patient denied symptoms of CV awareness. Further recommendations with echo. - ECHO - PERFLUTREN LIPID MICROSPHERES 1.1 MG/ML INJECTION IN NS 10 ML - SODIUM CHLORIDE 0.9 % (FLUSH) INJECTION SYRINGE Piyush Rivera MD [facility] 04-16-2024 History of Presen t illness Narrative This note was created using [employer]. Subjective Heriberto Peñaloza is a 73 year old male. He developed a cough more than one week ago, and had no other symptoms. He tested + for Covid, and the finding of pleural effusion prompted other studies with borderline elevation of d dimer and BNP. He felt back to normal. He had no cardiac disease. He had no leg pain, no inactivity or prolonged immobility, no history of PE or DVT. Review of Systems Constitutional: Negative for chills, fatigue and fever. Respiratory: Negative for chest tightness and shortness of breath. Cardiovascular: Negative for chest pain, palpitations and leg swelling. Gastrointestinal: Negative. Musculoskeletal: Negative for myalgias. ACTIVE PROBLEM LIST Pernicious Anemia H/O MALIGNANT MELANOMA/PERS HX MALIG SKIN MELANOMA Essential Hypertension Other Seborrheic Keratoses Vitamin D Deficiency Bph (Benign Prostatic Hyperplasia) Elevated Psa Venous Insufficiency of Both Lower Extremities Left Leg Weakness Raynaud's Phenomenon Without Gangrene Current Outpatient Medications Medication Sig lisinopril (ZESTRIL) 10 mg tablet Take 1 tablet by mouth once daily. amLODIPine (NORVASC) 10 mg tablet Take 1 tablet by mouth once daily. ergocalciferol 50,000 unit capsule (VITAMIN D2, DRISDOL) Take 1 capsule by mouth one time a week. tamsulosin ER (FLOMAX) 0.4 mg cp24 Take 1 capsule by mouth daily at bedtime. folic acid 400 mcg tablet Take 1 tablet by mouth once daily. aspirin, enteric coated (ASPIR-81) 81 mg EC tablet Take 1 tablet by mouth once daily. CENTRUM SILVER TAB Take one(1) tablet daily. Current Facility-Administered Medications Medication Dose Route Frequency cyanocobalamin 1,000 mcg injection 1,000 mcg INTRAMUSCULAR q 1 MONTH Objective BP 146/78 (BP Site: Left Arm, BP Position: Sitting, BP Cuff Size: Large Adult) Pulse 69 Temp 36.4 C (97.5 F) (Temporal) Resp 20 Wt 73.6 kg (162 lb 4.1 oz) BMI 23.12 kg/m Physical Exam Constitutional: Appearance: Normal appearance. He is not ill-appearing or diaphoretic. Cardiovascular: Rate and Rhythm: Normal rate and regular rhythm. Heart sounds: No murmur heard. No gallop. Pulmonary: Effort: No respiratory distress. Breath sounds: Normal breath sounds. No wheezing or rales. Musculoskeletal: General: No tenderness. Right lower leg: No edema. Left lower leg: No edema. Neurological: Mental Status: He is alert. Latest Ref [facility] 04/14/2024 WBC 3.70 - 11.00 k/uL 6.06 RBC 4.20 - 6.00 m/uL 4.66 Hemoglobin 13.0 - 17.0 g/dL 13.1 Hematocrit 39.0 - 51.0 % 41.2 MCV 80.0 - 100.0 fL 88.4 MCH 26.0 - 34.0 pg 28.1 MCHC 30.5 - 36.0 g/dL 31.8 RDW-CV 11.5 - 15.0 % 14.9 Platelet Count 150 - 400 k/uL 202 MPV 9.0 - 12.7 fL 11.9 Neut% % 53.1 Abs Neut (ANC) 1.45 - 7.50 k/uL 3.22 Lymph% % 33.2 Abs Lymph 1.00 - 4.00 k/uL 2.01 Stanley% % 11.1 Abs Stanley <0.87 k/uL 0.67 Eosin% % 2.0 Abs Eosin <0.46 k/uL 0.12 Baso% % 0.3 Abs Baso <0.11 k/uL <0.03 Immature Gran % % 0.3 IMMATURE GRANS (ABS) <0.10 k/uL <0.03 NRBC /100 WBC 0.0 Absolute nRBC <0.01 k/uL <0.01 DTYPE Auto Protein, Total 6.3 - 8.0 g/dL 6.9 Albumin 3.9 - 4.9 g/dL 4.0 Calcium 8.5 - 10.2 mg/dL 8.9 Bilirubin, Total 0.2 - 1.3 mg/dL 0.4 Alkaline Phosphatase 38 - 113 U/L 86 AST 14 - 40 U/L 17 ALT 10 - 54 U/L 14 Glucose 74 - 99 mg/dL 79 BUN 9 - 24 mg/dL 18 Creatinine 0.73 - 1.22 mg/dL 1.18 Sodium 136 - 144 mmol/L 142 Potassium 3.7 - 5.1 mmol/L 4.5 Chloride 98 - 107 mmol/L 106 CO2 22 - 30 mmol/L 24 Anion Gap 8 - 15 mmol/L 12 eGFR >=60 mL/min/1.73m 65 d Dimer <500 ng/mL FEU 740 (H) D Dimer Age-related Cutoff ng/mL FEU 730 COVID 19 Result See comment Detected ! NT Pro BNP <125 pg/mL 218 (H) Legend: (H) High ! Abnormal EKG RESULTS: normal sinus rhythm, LBBB, RBBB, and T wave abnormality lateral leads. Assessment and Plan 1. COVID-19 - ICD9: 079.89, ICD10: U07.1 (primary diagnosis) - Resolving. Continue precautions. 2. Pleural effusion - ICD9: 511.9, ICD10: J90 I suspect viral. Recheck in 3 weeks. - ECG COMPLETE - SODIUM CHLORIDE 0.9 % (FLUSH) INJECTION SYRINGE - XR CHEST 2V FRONTAL/LAT 3. Abnormal blood chemistry - ICD9: 790.6, ICD10: R79.9 Unclear significance. Patient is clinically fine. See #5. - SODIUM CHLORIDE 0.9 % (FLUSH) INJECTION SYRINGE 4. Essential hypertension - ICD9: 401.9, ICD10: I10 Not at goal. We have been increasing lisinopril. - LISINOPRIL 10 MG TABLET. Increase to 20 mg (2 tablets) daily. BP recheck scheduled. 5. Abnormal EKG - ICD9: 794.31, ICD10: R94.31 Patient denied symptoms of CV awareness. Further recommendations with echo. - ECHO - PERFLUTREN LIPID MICROSPHERES 1.1 MG/ML INJECTION IN NS 10 ML - SODIUM CHLORIDE 0.9 % (FLUSH) INJECTION SYRINGE Piyush Rivera MD documented in this encounter [facility] 04-15-2024 Telephone encounter Note I spoke with Negra Odonnell CNP in Dr. Rivera's office. She will make Dr. Rivera aware of the mildly elevated D-dimer. Patient is COVID-positive. He has a follow-up with PCP tomorrow. PCPs office is aware of the result. [facility] Work Phone: 04-15-2024 Miscellaneous Notes I spoke with Negra Odonnell CNP in Dr. Rivera's office. She will make Dr. Rivera aware of the mildly elevated D-dimer. Patient is COVID-positive. He has a follow-up with PCP tomorrow. PCPs office is aware of the result. documented in this encounter [facility] 04-15-2024 Telephone encounter Note Patient notified.Sadie Toscano LPN [facility] 04-15-2024 Miscellaneous Notes Patient notified.Sadie Toscano LPN Please contact patient and let him know he tested positive for COVID-19. He is out of the window for treatment with antiviral. Keep appointment with PCP follow-up tomorrow. documented in this encounter [facility] 04-15-2024 Telephone encounter Note Please contact patient and let him know he tested positive for COVID-19. He is out of the window for treatment with antiviral. Keep appointment with PCP follow-up tomorrow. [facility] Work Phone: 04-14-2024 History of Presen t illness Narrative Radiology Service Progress Note PATIENT NAME: Heriberto Peñaloza DATE OF SERVICE: April 14, 2024 TIME: 3:22 PM PATIENT IDENTITY VERIFICATION COMPLETED USING TWO (2) IDENTIFIERS: Name and Date of confirmed by patient verbally. FALL SCREENING: Has the patient had 2 falls in the last year or 1 fall with injury or currently using an Ambulatory Assistive Device (Walker, Cane, Wheelchair, Crutches, etc.)? No PATIENT GENDER DATA: Male PATIENT RELEVANT IMPLANT DATA REVIEWED: Not Applicable PATIENT PRESENTS WITH AN IMPLANTABLE OR ATTACHED STEAM DISTRIBUTION SUPERVISOR: No RADIOLOGY DEPARTMENT: General X-ray: Exam(s) Completed: Chest X-Ray PERIPHERAL IV DATA: Not applicable SIGNED BY: RT Ruslan(R) April 14, 2024 3:22 PM documented in this encounter [facility] 04-14-2024 Note HNO ID: [id number] Author: ARAM PINA RT(R) Service: Radiology Author Type: Technologist Type: Progress Notes Filed: 04/14/2024 15:28 Note Text: Radiology Service Progress Note PATIENT NAME: Heriberto Peñaloza DATE OF SERVICE: April 14, 2024 TIME: 3:22 PM PATIENT IDENTITY VERIFICATION COMPLETED USING TWO (2) IDENTIFIERS: Name and Date of confirmed by patient verbally. FALL SCREENING: Has the patient had 2 falls in the last year or 1 fall with injury or currently using an Ambulatory Assistive Device (Walker, Cane, Wheelchair, Crutches, etc.)? No PATIENT GENDER DATA: Male PATIENT RELEVANT IMPLANT DATA REVIEWED: Not Applicable PATIENT PRESENTS WITH AN IMPLANTABLE OR ATTACHED STEAM DISTRIBUTION SUPERVISOR: No RADIOLOGY DEPARTMENT: General X-ray: Exam(s) Completed: Chest X-Ray PERIPHERAL IV DATA: Not applicable SIGNED BY: RT Ruslan(R) April 14, 2024 3:22 PM [facility] 04-14-2024 Note HNO ID: [id number] Author: AMEYA AGUDELO MD Service: ? Author Type: Physician Type: Progress Notes Filed: 04/14/2024 16:25 Note Text: Patient presents with: Cough: Cough x 1 week HPI: Coughing since last week. His will be getting chemo so he wants to avoid getting her sick. Positive symptoms: cough, mid chest hurts with coughs but not with deep breaths, history of pneumonia, Negative symptoms: Shortness of breath, Wheezing, Sore throat, Nasal Congestion, Rhinorrhea, Fever, Chills, OTC: none Has a history of pneumonia. No history of asthma. MEDICATIONS: Current Outpatient Medications Medication Sig lisinopril (ZESTRIL) 10 mg tablet Take 1 tablet by mouth once daily. amLODIPine (NORVASC) 10 mg tablet Take 1 tablet by mouth once daily. ergocalciferol 50,000 unit capsule (VITAMIN D2, DRISDOL) Take 1 capsule by mouth one time a week. tamsulosin ER (FLOMAX) 0.4 mg cp24 Take 1 capsule by mouth daily at bedtime. folic acid 400 mcg tablet Take 1 tablet by mouth once daily. aspirin, enteric coated (ASPIR-81) 81 mg EC tablet Take 1 tablet by mouth once daily. CENTRUM SILVER TAB Take one(1) tablet daily. Current Facility-Administered Medications Medication Dose Route Frequency cyanocobalamin 1,000 mcg injection 1,000 mcg INTRAMUSCULAR q 1 MONTH ALLERGIES: ALLERGIES Allergen Reactions Polysporin [Bacitra* Rash VITALS: BP 140/80 Pulse 97 Temp 36.8 ?C (98.2 ?F) (Tympanic) Resp 18 Wt 75.7 kg (166 lb 14.2 oz) SpO2 97% BMI 23.78 kg/m? PHYSICAL EXAM: GEN: Pleasant, in no acute distress. HEENT: PERRL, EOMI, conjunctiva clear Sinuses: non-tender frontal sinus, non-tender maxillary sinuses Throat: moist mucous membranes, no erythema, no exudate Neck: supple, no thyromegaly, no lymphadenopathy HEART: regular rate and rhythm, no murmurs LUNGS: faint inspiratory wheezes and crackles which clear after coughing, raspy cough, no increased WOB CHEST: no sternal tenderness with palpation EXT: no clubbing, cyanosis, or edema ASSESSMENT/PLAN: 1. Acute cough - ICD9: 786.2, ICD10: R05.1 (primary diagnosis) 2. Pleural effusion - ICD9: 511.9, ICD10: J90 - XR CHEST 2V FRONTAL/LAT - small bilateral pleural effusions - COVID NAAT, UPPER RESPIRATORY, ROUTINE New effusion without identifiable cause. Discussed with PCP. Will draw labs and schedule follow up this week. - COMPREHENSIVE METABOLIC PANEL - NT PRO BNP - COMPLETE BLOOD COUNT AND DIFFERENTIAL - D dimer Follow up sooner with worsening cough, worsening shortness of breath, increasing chest pain, or late onset fever. Ameya Agudelo MD [facility] 04-14-2024 History of Presen t illness Narrative Patient presents with: Cough: Cough x 1 week HPI: Coughing since last week. His will be getting chemo so he wants to avoid getting her sick. Positive symptoms: cough, mid chest hurts with coughs but not with deep breaths, history of pneumonia, Negative symptoms: Shortness of breath, Wheezing, Sore throat, Nasal Congestion, Rhinorrhea, Fever, Chills, OTC: none Has a history of pneumonia. No history of asthma. MEDICATIONS: Current Outpatient Medications Medication Sig lisinopril (ZESTRIL) 10 mg tablet Take 1 tablet by mouth once daily. amLODIPine (NORVASC) 10 mg tablet Take 1 tablet by mouth once daily. ergocalciferol 50,000 unit capsule (VITAMIN D2, DRISDOL) Take 1 capsule by mouth one time a week. tamsulosin ER (FLOMAX) 0.4 mg cp24 Take 1 capsule by mouth daily at bedtime. folic acid 400 mcg tablet Take 1 tablet by mouth once daily. aspirin, enteric coated (ASPIR-81) 81 mg EC tablet Take 1 tablet by mouth once daily. CENTRUM SILVER TAB Take one(1) tablet daily. Current Facility-Administered Medications Medication Dose Route Frequency cyanocobalamin 1,000 mcg injection 1,000 mcg INTRAMUSCULAR q 1 MONTH ALLERGIES: ALLERGIES Allergen Reactions Polysporin [Bacitra* Rash VITALS: BP 140/80 Pulse 97 Temp 36.8 C (98.2 F) (Tympanic) Resp 18 Wt 75.7 kg (166 lb 14.2 oz) SpO2 97% BMI 23.78 kg/m PHYSICAL EXAM: GEN: Pleasant, in no acute distress. HEENT: PERRL, EOMI, conjunctiva clear Sinuses: non-tender frontal sinus, non-tender maxillary sinuses Throat: moist mucous membranes, no erythema, no exudate Neck: supple, no thyromegaly, no lymphadenopathy HEART: regular rate and rhythm, no murmurs LUNGS: faint inspiratory wheezes and crackles which clear after coughing, raspy cough, no increased WOB CHEST: no sternal tenderness with palpation EXT: no clubbing, cyanosis, or edema ASSESSMENT/PLAN: 1. Acute cough - ICD9: 786.2, ICD10: R05.1 (primary diagnosis) 2. Pleural effusion - ICD9: 511.9, ICD10: J90 - XR CHEST 2V FRONTAL/LAT - small bilateral pleural effusions - COVID NAAT, UPPER RESPIRATORY, ROUTINE New effusion without identifiable cause. Discussed with PCP. Will draw labs and schedule follow up this week. - COMPREHENSIVE METABOLIC PANEL - NT PRO BNP - COMPLETE BLOOD COUNT AND DIFFERENTIAL - D dimer Follow up sooner with worsening cough, worsening shortness of breath, increasing chest pain, or late onset fever. Ameya Agudelo MD documented in this encounter [facility] 04-07-2024 Telephone encounter Note Patient notified of below results/recommendations, verbalized understanding. Added BP daniel to next B-12 injection. Fatou Rodriguez LPN [facility] 04-07-2024 Miscellaneous Notes Patient notified of below results/recommendations, verbalized understanding. Added BP daniel to next B-12 injection. Fatou Rodriguez LPN 1) Blood chemistry within normal limits. 2) Increase Lisinopril to 10 mg daily. Rx sent. 3) Continue amlodipine. 4) BP true with next B12 injection. Patient in for nurse visit for B-12 and had BP checked since starting Lisinopril 5mg daily. Manual Readin/72 Pulse: 68 BP Daniel average: 145/72 P: 73 Repeat BP Check: 154/70 P73 #1 150/73 P71 #2 145/72 P80 #3 146/73 P70 #4 143/71 P73 #5 132/71 P73 #6 Reason for blood pressure check - Medication adjustment Patient is: Taking medication as prescribed Yes Took medication today No If no, date medication last taken 04/05/24; states that he ran out of medication yesterday Experiencing side effects No Pt has been identified by name and birthdate: Yes Allergies reviewed: Yes Latex allergy: no. Medication - prescribed and OTC reviewed and updated: Yes Do you need any prescription refills prior to your next visit: No Health Maintenance: Reviewed and not up to date and provider notified Ramonita Trevino LPN documented in this encounter [facility] 04-07-2024 Telephone encounter Note 1) Blood chemistry within normal limits. 2) Increase Lisinopril to 10 mg daily. Rx sent. 3) Continue amlodipine. 4) BP true with next B12 injection. [facility] 04-07-2024 Telephone encounter Note Patient in for nurse visit for B-12 and had BP checked since starting Lisinopril 5mg daily. Manual Readin/72 Pulse: 68 BP Daniel average: 145/72 P: 73 Repeat BP Check: 154/70 P73 #1 150/73 P71 #2 145/72 P80 #3 146/73 P70 #4 143/71 P73 #5 132/71 P73 #6 Reason for blood pressure check - Medication adjustment Patient is: Taking medication as prescribed Yes Took medication today No If no, date medication last taken 04/05/24; states that he ran out of medication yesterday Experiencing side effects No Pt has been identified by name and birthdate: Yes Allergies reviewed: Yes Latex allergy: no. Medication - prescribed and OTC reviewed and updated: Yes Do you need any prescription refills prior to your next visit: No Health Maintenance: Reviewed and not up to date and provider notified Ramonita Trevino LPN [facility] 04-07-2024 Note HNO ID: [id number] Author: RAMONITA TREVINO LPN Service: ? Author Type: LICENSED NURSE Type: Progress Notes Filed: 04/07/2024 09:20 Note Text: Patient presents for B-12 injection. Denies any problems at this time. Patient instructed on any SE of medication, verbalized understanding and agreed to proceed with treatment. Tolerated injection well. Ramonita Trevino LPN [facility] 04-07-2024 History of Presen t illness Narrative Patient presents for B-12 injection. Denies any problems at this time. Patient instructed on any SE of medication, verbalized understanding and agreed to proceed with treatment. Tolerated injection well. Ramonita Trevino LPN documented in this encounter [facility] 03-03-2024 Telephone encounter Note Patient notified of below recommendation, verbalized understanding. BP daniel added to next B-12 injection. 08/28/2024 appt changed to inoffice. Fatou Rodriguez LPN [facility] 03-03-2024 Miscellaneous Notes Patient notified of below recommendation, verbalized understanding. BP daniel added to next B-12 injection. 08/28/2024 appt changed to inoffice. Fatou Rodriguez LPN Add LISINOPRIL 5 mg daily to amlodipine. BP true with next B12 shot. Non fasting BMP with next B12 shot to monitor electrolytes, kidney function on new medication. Make August 2024 follow up in person, not video. Patient was in office for B-12 administration. Did check BP before he left with reading of 146/73 d/t recent elevation in office. Patient requesting further instruction. Ramonita Trevino LPN documented in this encounter [facility] 03-03-2024 Telephone encounter Note Add LISINOPRIL 5 mg daily to amlodipine. BP true with next B12 shot. Non fasting BMP with next B12 shot to monitor electrolytes, kidney function on new medication. Make August 2024 follow up in person, not video. [facility] 03-03-2024 Telephone encounter Note Patient was in office for B-12 administration. Did check BP before he left with reading of 146/73 d/t recent elevation in office. Patient requesting further instruction. Ramonita Trevino LPN [facility] 03-03-2024 Note HNO ID: [id number] Author: RAMONITA TREVINO LPN Service: ? Author Type: LICENSED NURSE Type: Progress Notes Filed: 03/03/2024 09:33 Note Text: Patient presents for B-12 injection. Denies any problems at this time. Patient instructed on any SE of medication, verbalized understanding and agreed to proceed with treatment. Tolerated injection well. Ramonita Trevino LPN [facility] 03-03-2024 History of Presen t illness Narrative Patient presents for B-12 injection. Denies any problems at this time. Patient instructed on any SE of medication, verbalized understanding and agreed to proceed with treatment. Tolerated injection well. Ramonita Trevino LPN documented in this encounter [facility] 02-27-2024 Telephone encounter Note Spoke with PSS regarding appt and recommendation to get pt scheduled. Ramonita Trevino LPN [facility] 02-27-2024 Miscellaneous Notes Spoke with PSS regarding appt and recommendation to get pt scheduled. Ramonita Trevino LPN Patient called to arrange his B 12 shot with you at 9 am on Mondays I see you are blocked for a mtg. Please call patient back. documented in this encounter [facility] 02-26-2024 Telephone encounter Note Patient called to arrange his B 12 shot with you at 9 am on Mondays I see you are blocked for a mtg. Please call patient back. [facility] 02-25-2024 Note HNO ID: [id number] Author: PIYUSH RIVERA MD Service: ? Author Type: Physician Type: Progress Notes Filed: 02/25/2024 17:55 Note Text: This note was created using [employer]. Subjective Heriberto Peñaloza is a 73 year old male. He was dealing with some stressors, but overall felt well. His hypertension was elevated today. His labs were pending. Review of Systems Constitutional: Negative for fatigue and unexpected weight change. Respiratory: Negative for chest tightness and shortness of breath. Cardiovascular: Negative for chest pain, palpitations and leg swelling. Gastrointestinal: Negative for abdominal pain. Musculoskeletal: Left thumb normal. Neurological: Positive for numbness. Negative for dizziness and headaches. Numbness, tingling of left thumb. ACTIVE PROBLEM LIST Pernicious Anemia H/O MALIGNANT MELANOMA/PERS HX MALIG SKIN MELANOMA Essential Hypertension Other Seborrheic Keratoses Vitamin D Deficiency Bph (Benign Prostatic Hyperplasia) Elevated Psa Venous Insufficiency of Both Lower Extremities Left Leg Weakness Raynaud's Phenomenon Without Gangrene Current Outpatient Medications Medication Sig amLODIPine (NORVASC) 10 mg tablet Take 1 tablet by mouth once daily. ergocalciferol 50,000 unit capsule (VITAMIN D2, DRISDOL) Take 1 capsule by mouth one time a week. tamsulosin ER (FLOMAX) 0.4 mg cp24 Take 1 capsule by mouth daily at bedtime. folic acid 400 mcg tablet Take 1 tablet by mouth once daily. aspirin, enteric coated (ASPIR-81) 81 mg EC tablet Take 1 tablet by mouth once daily. CENTRUM SILVER TAB Take one(1) tablet daily. Current Facility-Administered Medications Medication Dose Route Frequency cyanocobalamin 1,000 mcg injection 1,000 mcg INTRAMUSCULAR q 1 MONTH Objective BP 156/74 (BP Site: Left Arm, BP Position: Sitting, BP Cuff Size: Large Adult) Pulse 69 Temp 36.7 ?C (98 ?F) (Temporal) Resp 20 Ht 178.4 cm (5' 10.25) Wt 74.8 kg (165 lb) BMI 23.51 kg/m? Physical Exam Constitutional: Appearance: He is not ill-appearing. Cardiovascular: Rate and Rhythm: Normal rate and regular rhythm. Heart sounds: No murmur heard. No gallop. Pulmonary: Effort: No respiratory distress. Breath sounds: No wheezing or rales. Abdominal: Palpations: Abdomen is soft. Tenderness: There is no abdominal tenderness. Musculoskeletal: Right lower leg: No edema. Left lower leg: No edema. Comments: Left leg in compression stocking. Neurological: Mental Status: He is alert. Gait: Gait normal. Latest Ref Rng 02/25/2024 Protein, Total 6.3 - 8.0 g/dL 6.5 Albumin 3.9 - 4.9 g/dL 3.9 Calcium 8.5 - 10.2 mg/dL 8.9 Bilirubin, Total 0.2 - 1.3 mg/dL 0.7 Alkaline Phosphatase 38 - 113 U/L 89 AST 14 - 40 U/L 15 ALT 10 - 54 U/L 10 Glucose 74 - 99 mg/dL 102 (H) BUN 9 - 24 mg/dL 22 Creatinine 0.73 - 1.22 mg/dL 0.97 Sodium 136 - 144 mmol/L 138 Potassium 3.7 - 5.1 mmol/L 3.8 Chloride 98 - 107 mmol/L 107 CO2 22 - 30 mmol/L 22 Anion Gap 8 - 15 mmol/L 9 eGFR >=60 mL/min/1.73m? 82 WBC 3.70 - 11.00 k/uL 5.83 RBC 4.20 - 6.00 m/uL 5.09 Hemoglobin 13.0 - 17.0 g/dL 14.3 Hematocrit 39.0 - 51.0 % 45.3 MCV 80.0 - 100.0 fL 89.0 MCH 26.0 - 34.0 pg 28.1 MCHC 30.5 - 36.0 g/dL 31.6 RDW-CV 11.5 - 15.0 % 14.5 Platelet Count 150 - 400 k/uL 157 MPV 9.0 - 12.7 fL 11.9 Absolute nRBC <0.01 k/uL <0.01 Legend: (H) High Assessment and Plan 1. Medicare annual wellness visit, subsequent - ICD9: V70.0, ICD10: Z00.00 (primary diagnosis) - See wellness note. 2. Essential hypertension - ICD9: 401.9, ICD10: I10 - Worsening control - Continue current medications - Encouraged sodium restriction, DASH or Mediterranean diet - Reviewed risks of hypertension and principles of treatment - Nurse BP recheck. 3. Pernicious anemia - ICD9: 281.0, ICD10: D51.0 Check level. 4. Venous insufficiency of both lower extremities - ICD9: 459.81, ICD10: I87.2 Controlled. 5. Need for COVID-19 vaccine - ICD9: V04.89, ICD10: Z23 - [employer] COVID-19 VACCINE (2022- SEASON) AGE 12+ YR 6. Vitamin D deficiency - ICD9: 268.9, ICD10: E55.9 Recheck level. Piyush Rivera MD [facility] 02-25-2024 History of Presen t illness Narrative This note was created using [employer]. Subjective Heriberto Peñaloza is a 73 year old male. He was dealing with some stressors, but overall felt well. His hypertension was elevated today. His labs were pending. Review of Systems Constitutional: Negative for fatigue and unexpected weight change. Respiratory: Negative for chest tightness and shortness of breath. Cardiovascular: Negative for chest pain, palpitations and leg swelling. Gastrointestinal: Negative for abdominal pain. Musculoskeletal: Left thumb normal. Neurological: Positive for numbness. Negative for dizziness and headaches. Numbness, tingling of left thumb. ACTIVE PROBLEM LIST Pernicious Anemia H/O MALIGNANT MELANOMA/PERS HX MALIG SKIN MELANOMA Essential Hypertension Other Seborrheic Keratoses Vitamin D Deficiency Bph (Benign Prostatic Hyperplasia) Elevated Psa Venous Insufficiency of Both Lower Extremities Left Leg Weakness Raynaud's Phenomenon Without Gangrene Current Outpatient Medications Medication Sig amLODIPine (NORVASC) 10 mg tablet Take 1 tablet by mouth once daily. ergocalciferol 50,000 unit capsule (VITAMIN D2, DRISDOL) Take 1 capsule by mouth one time a week. tamsulosin ER (FLOMAX) 0.4 mg cp24 Take 1 capsule by mouth daily at bedtime. folic acid 400 mcg tablet Take 1 tablet by mouth once daily. aspirin, enteric coated (ASPIR-81) 81 mg EC tablet Take 1 tablet by mouth once daily. CENTRUM SILVER TAB Take one(1) tablet daily. Current Facility-Administered Medications Medication Dose Route Frequency cyanocobalamin 1,000 mcg injection 1,000 mcg INTRAMUSCULAR q 1 MONTH Objective BP 156/74 (BP Site: Left Arm, BP Position: Sitting, BP Cuff Size: Large Adult) Pulse 69 Temp 36.7 C (98 F) (Temporal) Resp 20 Ht 178.4 cm (5' 10.25) Wt 74.8 kg (165 lb) BMI 23.51 kg/m Physical Exam Constitutional: Appearance: He is not ill-appearing. Cardiovascular: Rate and Rhythm: Normal rate and regular rhythm. Heart sounds: No murmur heard. No gallop. Pulmonary: Effort: No respiratory distress. Breath sounds: No wheezing or rales. Abdominal: Palpations: Abdomen is soft. Tenderness: There is no abdominal tenderness. Musculoskeletal: Right lower leg: No edema. Left lower leg: No edema. Comments: Left leg in compression stocking. Neurological: Mental Status: He is alert. Gait: Gait normal. Latest Ref Rng 02/25/2024 Protein, Total 6.3 - 8.0 g/dL 6.5 Albumin 3.9 - 4.9 g/dL 3.9 Calcium 8.5 - 10.2 mg/dL 8.9 Bilirubin, Total 0.2 - 1.3 mg/dL 0.7 Alkaline Phosphatase 38 - 113 U/L 89 AST 14 - 40 U/L 15 ALT 10 - 54 U/L 10 Glucose 74 - 99 mg/dL 102 (H) BUN 9 - 24 mg/dL 22 Creatinine 0.73 - 1.22 mg/dL 0.97 Sodium 136 - 144 mmol/L 138 Potassium 3.7 - 5.1 mmol/L 3.8 Chloride 98 - 107 mmol/L 107 CO2 22 - 30 mmol/L 22 Anion Gap 8 - 15 mmol/L 9 eGFR >=60 mL/min/1.73m 82 WBC 3.70 - 11.00 k/uL 5.83 RBC 4.20 - 6.00 m/uL 5.09 Hemoglobin 13.0 - 17.0 g/dL 14.3 Hematocrit 39.0 - 51.0 % 45.3 MCV 80.0 - 100.0 fL 89.0 MCH 26.0 - 34.0 pg 28.1 MCHC 30.5 - 36.0 g/dL 31.6 RDW-CV 11.5 - 15.0 % 14.5 Platelet Count 150 - 400 k/uL 157 MPV 9.0 - 12.7 fL 11.9 Absolute nRBC <0.01 k/uL <0.01 Legend: (H) High Assessment and Plan 1. Medicare annual wellness visit, subsequent - ICD9: V70.0, ICD10: Z00.00 (primary diagnosis) - See wellness note. 2. Essential hypertension - ICD9: 401.9, ICD10: I10 - Worsening control - Continue current medications - Encouraged sodium restriction, DASH or Mediterranean diet - Reviewed risks of hypertension and principles of treatment - Nurse BP recheck. 3. Pernicious anemia - ICD9: 281.0, ICD10: D51.0 Check level. 4. Venous insufficiency of both lower extremities - ICD9: 459.81, ICD10: I87.2 Controlled. 5. Need for COVID-19 vaccine - ICD9: V04.89, ICD10: Z23 - [employer] COVID-19 VACCINE (2022- [place]) AGE 12+ YR 6. Vitamin D deficiency - ICD9: 268.9, ICD10: E55.9 Recheck level. Piyush Rivera MD Images from the original note were not included. Heriberto Peñaloza is a 73 year old male here for a Medicare wellness visit. Medicare Health Risk Assessment General Health Very good Exercise: Minutes/Day 30 min Exercise: Days/Week 2 days Alcohol: Daily Use 4 or more times a week Alcohol: Drinks/Day 1 or 2 Alcohol: 6 or more drinks Never Feel off balance No Concerns: Teeth/Dentures No Concerns: Sexual function No Troubled by feelings Stressed Frequency: Eating healthy diet More than half the days ADLs requiring help None of the above Safety precautions in home/vehicle Yes Smoke, vape, chews tobacco No Difficulty hearing No Difficulty seeing No Current Providers Specialists: I have reviewed specialist-related care of the patient in the medical record. Current care team: Patient Care Team: Piyush Rivera MD as PCP - General (Internal Medicine) Outside specialists seen: Dr. Ermelinda Gregg, urology. Dr. Bob Campos, dermatology. Dr. Hurtado, ophthalmology. Medical/Family history review Reviewed and updated problem list, medical/surgical/family/social history, medications, and allergies. Opioid use review Opioid Medications (last 90 days) No data to display Anxiety/Depression screening Recommendation: no further intervention at this time Cognitive screening Mini Cog Score: 5 Cognitive screening reviewed and No further action needed (score 3-5). Functional Observation Was the patient's Timed Up & Go test unsteady or ? 12 seconds? No Advance Care Planning Patient did not wish or was not able to name a surrogate decision maker or provide an advance care plan Measurements BP 156/74 Pulse 69 Temp (Src) 98 (Temporal) Resp 20 Ht 5' 10.25 (1.78m) Wt 165 lb (74.8kg) BMI 23.52 kg/(m^2). Vision Screening: Follows with optometry/ophthalmology Right: 20/40 Left: 20/ 20 Both: 20/30 Assessment/Plan Medicare annual wellness visit, subsequent (Z00.00) - Counseled on healthy diet and regular exercise - Fall avoidance information provided - Personalized prevention plan provided - Covid booster recommended. documented in this encounter [facility] 02-25-2024 Note HNO ID: [id number] Author: PIYUSH RIVERA MD Service: ? Author Type: Physician Type: Progress Notes Filed: 02/25/2024 17:55 Note Text: Heriberto Peñaloza is a 73 year old male here for a Medicare wellness visit. Medicare Health Risk Assessment General Health Very good Exercise: Minutes/Day 30 min Exercise: Days/Week 2 days Alcohol: Daily Use 4 or more times a week Alcohol: Drinks/Day 1 or 2 Alcohol: 6 or more drinks Never Feel off balance No Concerns: Teeth/Dentures No Concerns: Sexual function No Troubled by feelings Stressed Frequency: Eating healthy diet More than half the days ADLs requiring help None of the above Safety precautions in home/vehicle Yes Smoke, vape, chews tobacco No Difficulty hearing No Difficulty seeing No Current Providers Specialists: I have reviewed specialist-related care of the patient in the medical record. Current care team: Patient Care Team: Piyush Rivera MD as PCP - General (Internal Medicine) Outside specialists seen: Dr. Ermelinda Gregg, urology. Dr. Bob Campos, dermatology. Dr. Hurtado, ophthalmology. Medical/Family history review Reviewed and updated problem list, medical/surgical/family/social history, medications, and allergies. Opioid use review Opioid Medications (last 90 days) No data to display Anxiety/Depression screening Recommendation: no further intervention at this time Cognitive screening Mini Cog Score: 5 Cognitive screening reviewed and No further action needed (score 3-5). Functional Observation Was the patient's Timed Up AND Go test unsteady or ? 12 seconds? No Advance Care Planning Patient did not wish or was not able to name a surrogate decision maker or provide an advance care plan Measurements BP 156/74 Pulse 69 Temp (Src) 98 (Temporal) Resp 20 Ht 5' 10.25 (1.78m) Wt 165 lb (74.8kg) BMI 23.52 kg/(m2). Vision Screening: Follows with optometry/ophthalmology Right: 2040 Left: 20/ 20 Both: Assessment/Plan Medicare annual wellness visit, subsequent (Z00.00) - Counseled on healthy diet and regular exercise - Fall avoidance information provided - Personalized prevention plan provided - Covid booster recommended. [facility] 02-20-2024 Telephone encounter Note Prescription Refill Information The patient has been identified by name and date of : Yes Caregiver verified no other encounters exist for this prescription request: Yes Caregiver confirmed with patient/requestor that no other refills are due, in the near future, with this provider at this time: Yes The last office visit in the department: 02/12/23 Does the patient have a future office visit with this provider/department: Yes Requested Prescriptions Pending Prescriptions Disp Refills amLODIPine (NORVASC) 10 mg tablet 90 tablet 3 Sig: Take 1 tablet by mouth once daily. Tami Vanegas February 20, 2024 9:15 AM [facility] 02-20-2024 Miscellaneous Notes Prescription Refill Information The patient has been identified by name and date of : Yes Caregiver verified no other encounters exist for this prescription request: Yes Caregiver confirmed with patient/requestor that no other refills are due, in the near future, with this provider at this time: Yes The last office visit in the department: 02/12/23 Does the patient have a future office visit with this provider/department: Yes Requested Prescriptions Pending Prescriptions Disp Refills amLODIPine (NORVASC) 10 mg tablet 90 tablet 3 Sig: Take 1 tablet by mouth once daily. Tami Vanegas February 20, 2024 9:15 AM documented in this encounter [facility] 02-04-2024 Note HNO ID: [id number] Author: RAMONITA TREVINO LPN Service: ? Author Type: LICENSED NURSE Type: Progress Notes Filed: 02/04/2024 11:26 Note Text: Patient presents for B-12 injection. Denies any problems at this time. Patient instructed on any SE of medication, verbalized understanding and agreed to proceed with treatment. Tolerated injection well. Ramonita Trevino LPN [facility] 02-04-2024 History of Presen t illness Narrative Patient presents for B-12 injection. Denies any problems at this time. Patient instructed on any SE of medication, verbalized understanding and agreed to proceed with treatment. Tolerated injection well. Ramonita Trevino LPN documented in this encounter [facility] 01-30-2024 Telephone encounter Note Called patient and scheduled on 02/25/24 and advised to get labs before appointment. [facility] 01-30-2024 Miscellaneous Notes Called patient and scheduled on 02/25/24 and advised to get labs before appointment. Please schedule Medicare wellness visit with fasting labs prior Negra Ugalde APRN.FILM CUTTER But in review pt would need new rx. Last seen pcp 02/12/23. Looks like 6 month follow up did not get arranged. Labs due? Arrange wellness for this month? Will request PA to complete. Pt came in to refill his D2. When I entered it, it gave me a warning that the formula that was prescribed was not the correct formulary for his insurance policy.. Please advise. documented in this encounter [facility] 01-30-2024 Telephone encounter Note Please schedule Medicare wellness visit with fasting labs prior Negra Ugalde APRN.FILM CUTTER [facility] 01-30-2024 Telephone encounter Note But in review pt would need new rx. Last seen pcp 02/12/23. Looks like 6 month follow up did not get arranged. Labs due? Arrange wellness for this month? [facility] 01-30-2024 Telephone encounter Note Will request PA to complete. [facility] 01-30-2024 Telephone encounter Note Pt came in to refill his D2. When I entered it, it gave me a warning that the formula that was prescribed was not the correct formulary for his insurance policy.. Please advise. [facility] 12-31-2023 History of Presen t illness Narrative Patient presents for B-12 injection. Denies any problems at this time. Patient instructed on any SE of medication, verbalized understanding and agreed to proceed with treatment. Tolerated injection well. Ramonita Trevino LPN documented in this encounter [facility] 11-26-2023 History of Presen t illness Narrative Patient presents for B-12 injection. Denies any problems at this time. Patient instructed on any SE of medication, verbalized understanding and agreed to proceed with treatment. Tolerated injection well. Ramonita Trevino LPN documented in this encounter [facility] 10-29-2023 History of Presen t illness Narrative Patient presents for B-12 injection. Denies any problems at this time. Patient instructed on any SE of medication, verbalized understanding and agreed to proceed with treatment. Tolerated injection well. Ramonita Trevino LPN documented in this encounter [facility] 10-01-2023 History of Presen t illness Narrative Patient presents for B-12 injection. Denies any problems at this time. Patient instructed on any SE of medication, verbalized understanding and agreed to proceed with treatment. Tolerated injection well. Ramonita Trevino LPN documented in this encounter [facility] 09-28-2023 Miscellaneous Notes Patient scheduled for nurse visit 10/01/23 to receive B-[address]. [address] new administration order at this time. Ramonita Trevino LPN documented in this encounter [facility] 07-02-2023 History of Presen t illness Narrative Patient presents for B-12 injection. Denies any problems at this time. Patient instructed on any SE of medication, verbalized understanding and agreed to proceed with treatment. Tolerated injection well. Ramonita Trevino LPN documented in this encounter [facility] 05-25-2023 History of Presen t illness Narrative Images from the original note were not included. This note was created using Peelter. Subjective Heriberto Peñaloza is a 72 year old male. HPI Patient presents with a open sore in his left lower leg. He noticed it on Sunday. He is not sure if he had bumped into something. He cut a little red today so came in for evaluation. No drainage. No history of MRSA or staph infection. Denies fever or chills. He is not diabetic. Review of Systems Constitutional: Negative. HENT: Negative. Respiratory: Negative. Cardiovascular: Negative. Gastrointestinal: Negative. Musculoskeletal: Wound left lower leg All other systems reviewed and are negative. 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 90 tablet 3 ergocalciferol 50,000 unit capsule (VITAMIN D2, DRISDOL) Take 1 capsule by mouth one time a week. 12 capsule 3 tamsulosin ER (FLOMAX) 0.4 mg cp24 Take 1 capsule by mouth daily at bedtime. 90 capsule 4 folic acid 400 mcg tablet Take 1 tablet by mouth once daily. 0 aspirin, enteric coated (ASPIR-81) 81 mg EC tablet Take 1 tablet by mouth once daily. 100 tablet 0 finasteride (PROSCAR) 5 mg tablet Take 1 tablet by mouth once daily. 90 tablet 4 CENTRUM SILVER TAB Take one(1) tablet daily. 0 mupirocin (BACTROBAN) 2 % ointment Apply to affected area three times a day for 5 days. 22 g 0 Current Facility-Administered Medications Medication Dose Route Frequency Provider Last Rate Last Admin cyanocobalamin 1,000 mcg injection 1,000 mcg INTRAMUSCULAR q 1 MONTH Older, Negra, DAMAGE PREVENTION COORDINATOR.FILM CUTTER 1,000 mcg at 04/02/23 0917 PAST SURGICAL HISTORY Procedure Laterality Date COLONOSCOPY FLX DX W/COLLJ SPEC WHEN PFRMD 11/27/2006 COLONOSCOPY FLX DX W/COLLJ SPEC WHEN PFRMD 12/25/2014 COLONOSCOPY FLX DX W/COLLJ SPEC WHEN PFRMD 04/21/2020 Colonoscopy CYSTOSCOPY,URETEROSCOPY,LITHOTR IPSY Right 01/10/2017 Stent placement, removal, 01/10/17; 01/03/17 ESOPHAGOGASTRODUODENOSCOPY TRANSORAL DIAGNOSTIC 11/27/2006 LAPS SURG CHOLECYSTECTOMY W/CHOLANGIOGRAPHY 08/16/2017 [facility] PAST SURGICAL HISTORY OF November Total gastrectomy- stomach CA, Trudi n Y jejunostomy PAST SURGICAL HISTORY OF Left 1989 left knee arthroscopy, PAST SURGICAL HISTORY OF Right 02/04/2015 Retroperitoneal cyst excision PROSTATE BIOPSY W/TRANSRECTAL US 04/29/2019 RPR 1ST INGUN HRNA AGE 5 YRS/> REDUCIBLE 10/03/2010 RIGHT SHOULDER SURGERY HX Right 2019 FAMILY HISTORY Problem Relation Age of Onset None Father failure to thrive None Mother failure to thrive Social History Tobacco Use Smoking status: Never Smokeless tobacco: Never Vaping Use Vaping Use: Never used Substance Use Topics Alcohol use: Yes Alcohol/week: 8.0 standard drinks of alcohol Types: 8 Glasses of Wine (5oz) per week Drug use: No Comment: not usually Objective BP 120/70 Pulse 80 Temp 36.2 C (97.1 F) (Tympanic) Resp 18 Wt 77.2 kg (170 lb 3.2 oz) SpO2 97% BMI 24.25 kg/m Physical Exam Vitals reviewed. Constitutional: Appearance: Normal appearance. HENT: Head: Normocephalic and atraumatic. Musculoskeletal: Legs: Comments: Patient has a small 2 cm scabbed area with some mild erythema on the wound edges on the left anterior lower leg. Does not appear to be infected. No sign of abscess. No significant warmth to the area. No drainage. Skin: General: Skin is warm and dry. Neurological: Mental Status: He is alert. Assessment and Plan ASSESSMENT/PLAN: 1. Leg wound, left, initial encounter - ICD9: 894.0, ICD10: S81.802A At this point, the erythema likely just from wound edge healing. I did not feel that this was infected right now. Discussed he could use mupirocin to prevent infection. If its significantly more red tomorrow discussed with him I could call in an oral antibiotic tomorrow however I do not think it is infected now. Patient was agreeable with plan. Karey Staton PA-C documented in this encounter [facility] 04-02-2023 History of Presen t illness Narrative Patient presents for B-12 injection. Denies any problems at this time. Patient instructed on any SE of medication, verbalized understanding and agreed to proceed with treatment. Tolerated injection well. Ramonita Trevino LPN documented in this encounter [facility] 02-12-2023 History of Presen t illness Narrative Ambulatory Ear Lavage Pre-treatment: Warm water Treatment: Left ear Equipment and Irrigation solution and Volume used: Single use syringe with single use irrigation tip Water Return flow appearance: Brown Patient tolerated procedure: yes Tympanic membrane assessment: Tympanic membrane assessed by LIP pre and post procedure This note was created using [employer]. Subjective Heriberto Peñaloza is a 72 year old male. He's noted numbness of the left thumb pad recently. There was no trauma, no impact on his activities of daily living. His glucose was elevated but was not fasting. Hypertension was controlled, and lipids were controlled. He noted some hearing loss of the left and suspected he had wax buildup. Review of Systems Constitutional: Negative for fatigue and unexpected weight change. HENT: Negative for ear discharge and ear pain. Respiratory: Negative for chest tightness and shortness of breath. Cardiovascular: Negative for chest pain, palpitations and leg swelling. Gastrointestinal: Negative. Genitourinary: Negative for difficulty urinating. Musculoskeletal: Negative. ACTIVE PROBLEM LIST Pernicious Anemia H/O MALIGNANT MELANOMA/PERS HX MALIG SKIN MELANOMA Essential Hypertension Other Seborrheic Keratoses Vitamin D Deficiency Bph (Benign Prostatic Hyperplasia) Elevated Psa Venous Insufficiency of Both Lower Extremities Left Leg Weakness Raynaud's Phenomenon Without Gangrene Current Outpatient Medications Medication Sig ergocalciferol 50,000 unit capsule (VITAMIN D2, DRISDOL) Take 1 capsule by mouth one time a week. tamsulosin ER (FLOMAX) 0.4 mg cp24 Take 1 capsule by mouth daily at bedtime. folic acid 400 mcg tablet Take 1 tablet by mouth once daily. aspirin, enteric coated (ASPIR-81) 81 mg EC tablet Take 1 tablet by mouth once daily. finasteride (PROSCAR) 5 mg tablet Take 1 tablet by mouth once daily. CENTRUM SILVER TAB Take one(1) tablet daily. amLODIPine (NORVASC) 10 mg tablet Take 1 tablet by mouth once daily. Current Facility-Administered Medications Medication Dose Route Frequency cyanocobalamin 1,000 mcg injection 1,000 mcg INTRAMUSCULAR q 1 MONTH Objective BP 130/68 (BP Site: Left Arm, BP Position: Sitting, BP Cuff Size: Large Adult) Pulse 80 Resp 16 Ht 178.4 cm (5' 10.25) Wt 76.2 kg (168 lb) BMI 23.93 kg/m Physical Exam Constitutional: General: He is not in acute distress. HENT: Right Ear: Tympanic membrane, ear canal and external ear normal. Left Ear: Ear canal and external ear normal. There is impacted cerumen. Cardiovascular: Rate and Rhythm: Normal rate and regular rhythm. Heart sounds: No murmur heard. No gallop. Pulmonary: Breath sounds: Normal breath sounds. Musculoskeletal: Right lower leg: No edema. Left lower leg: No edema. Comments: Left thumb normal. Neurological: General: No focal deficit present. Mental Status: He is alert and oriented to person, place, and time. Sensory: No sensory deficit. Motor: No weakness. Gait: Gait normal. Depression Screening 09/15/2019 01/03/2021 01/11/2022 02/12/2023 PHQ-2 Score 0 0 0 0 PHQ-9 Score - 0 2 - Depression screening tool completed and reviewed. Based on score and interview, patient is not at risk for depression. Screening tool discussed with patient, and I recommended no further intervention at this time. Assessment and Plan 1. Medicare annual wellness visit, subsequent - ICD9: V70.0, ICD10: Z00.00 (primary diagnosis) See wellness note. 2. Pernicious anemia - ICD9: 281.0, ICD10: D51.0 Stable. - CBC - VITAMIN B12 BLOOD 3. Essential hypertension - ICD9: 401.9, ICD10: I10 - Controlled - Continue current medications 4. Vitamin D deficiency - ICD9: 268.9, ICD10: E55.9 Level elevating. Recheck in 6 months. - VITAMIN D 25 HYDROXY 5. Numbness of left thumb - ICD9: 782.0, ICD10: R20.0 Localized. Observe only. 6. Impacted cerumen of left ear - ICD9: 380.4, ICD10: H61.22 Lavage successful. Left ear re examined. - AMBULATORY EAR LAVAGE/IRRIGATION 7. Hyperglycemia - ICD9: 790.29, ICD10: R73.9 Non fasting. - BASIC METABOLIC PNL - HGB A1C Piyush Rivera MD Heriberto Peñaloza is a 72 year old male here for a Medicare Subsequent Annual Wellness Visit Health Risk Assessment In general, health is: Very good Concerns with balance:Not at all Concerns with teeth or dentures:Not at all Concerns with sexual function:Not at all Pavo anxious, stressed, angry, irritable, lonely, isolated, or had thoughts of hurting themself: Not at all Has little interest or pleasure in doing things: Not at all Bothered by feeling down, depressed, or hopeless: Not at all Needs help with grocery shopping, cooking, housework, bathing, grooming, dressing, eating, sitting or standing, walking, using the toilet, handling finances, taking medications, using the telephone, or driving: No Following safety precautions in the home environment and vehicle: removed throw rugs from floors, installed grab bars in the bathroom, handrails in stairwells, having adequate lighting, wearing seatbelt at all times?: Yes Smokes cigarettes, vapes, or chew tobacco: No Eats healthy foods including fruits, vegetables, whole grains, and fiber-rich foods: Nearly every day Number of days per week engages in exercise: 5 days Average alcohol consumption: 4 or more times a week Current Providers Specialists: I have reviewed specialist-related care of the patient in the medical record. Outside specialists seen: Dr. Ermelinda Gregg, urology. Dr. Bob Campos, dermatology. Dr. Hurtado, ophthalmology. Medical/Family history review Reviewed and updated problem list, medical/surgical/family/social history, medications, and allergies. Opioid use review Patient is not currently using opioids. Depression screening Depression Screening PHQ-2 Score PHQ-9 Score 01/11/2022 0 2 Depression screening tool completed and reviewed. Based on score and interview, patient is not at risk for depression. Screening tool discussed with patient, and I recommended no further intervention at this time. Cognitive screening Mini Cog Score: 5 Cognitive screening reviewed and no further action needed (score 3-5) Functional Observation Was the patient's timed Up & Go test unsteady or ? 12 seconds? No Advance Care Planning End of Life planning discussed, including patient's advanced directive wishes: Yes Measurements BP 130/68 Pulse 80 Resp 16 Ht 5' 10.25 (1.78m) Wt 168 lb (76.2kg) BMI 23.94 kg/(m^2). Visual acuity (required for Welcome to Medicare): follows with optometry/ophthalmology and Right: 20/40 Left: 20/ 25 Both: 20/25 Hearing Evaluation: within normal limits Assessment/Plan - Counseled on healthy diet and regular exercise - Discussed need for and benefit of weight loss. BMI 23.93 kg/(m^2) - Fall avoidance documented in this encounter [facility] 02-12-2023 Instructions Piyush Rivera MD - 02/12/2023 2:04 PM EDT FASTING BLOOD WORK IN 6 MONTHS. documented in this encounter [facility] 02-09-2023 Miscellaneous Notes Lab notified. Leidy Granados MA Lab at [facility] contacted office and indicated that patient has an appointment on Sunday with Dr. Cheng and here is to get his labs completed. There are no orders. Please contact [phone] once orders have been entered. Leidy Granados MA documented in this encounter [facility] 01-29-2023 History of Presen t illness Narrative Patient presents for B-12 injection. Denies any problems at this time. Patient instructed on any SE of medication, verbalized understanding and agreed to proceed with treatment. Tolerated injection well. Ramonita Trevino LPN documented in this encounter [facility] 12-25-2022 History of Presen t illness Narrative Patient presents for B-12 injection. Denies any problems at this time. Patient instructed on any SE of medication, verbalized understanding and agreed to proceed with treatment. Tolerated injection well. Ramonita Trevino LPN documented in this encounter [facility] 11-27-2022 History of Presen t illness Narrative Patient presents for B-12 injection. Denies any problems at this time. Patient instructed on any SE of medication, verbalized understanding and agreed to proceed with treatment. Tolerated injection well. Ramonita Trevino LPN documented in this encounter [facility] 10-30-2022 History of Presen t illness Narrative Patient presents for B-12 injection. Denies any problems at this time. Patient instructed on any SE of medication, verbalized understanding and agreed to proceed with treatment. Tolerated injection well. Ramonita Trevino LPN documented in this encounter [facility] 10-02-2022 History of Presen t illness Narrative Patient presents for B-12 injection. Denies any problems at this time. Patient instructed on any SE of medication, verbalized understanding and agreed to proceed with treatment. Tolerated injection well. Ramonita Trevino LPN documented in this encounter [facility] 09-26-2022 Miscellaneous Notes Patient scheduled for nurse visit 10/02/22 to receive B-[address] new administration order at this time. Ramonita Trevino LPN documented in this encounter [facility] 09-04-2022 History of Presen t illness Narrative Patient presents for B-12 injection. Denies any problems at this time. Patient instructed on any SE of medication, verbalized understanding and agreed to proceed with treatment. Tolerated injection well. Ramonita Trevino LPN documented in this encounter [facility] 07-31-2022 History of Presen t illness Narrative Patient presents for B-12 injection. Denies any problems at this time. Patient instructed on any SE of medication, verbalized understanding and agreed to proceed with treatment. Tolerated injection well. Ramonita Trevino LPN documented in this encounter [facility] 07-14-2022 History of Presen t illness Narrative This note was created using [employer]. Subjective Heriberto Peñaloza is a 72 year old male. His hypertension was fair. He was taking his medications. Labs needed updating. He had chronic left leg weakness with some atrophy for more than 2 years. Nerve testing was normal. This was not worse, and did not impact on his activities of daily living. He also noted intermittent painful purple discoloration of his fingers this summer while golfing. Symptom lasted for seconds and resolved with no sequelae. No triggers were noted, no systemic symptoms, or skin breakdown was appreciated. Review of Systems Constitutional: Negative. Respiratory: Negative. Cardiovascular: Negative. Gastrointestinal: Negative. Skin: Positive for color change. Neurological: See HPI. ACTIVE PROBLEM LIST Pernicious Anemia H/O MALIGNANT MELANOMA/PERS HX MALIG SKIN MELANOMA Essential Hypertension Other Seborrheic Keratoses Vitamin D Deficiency Bph (Benign Prostatic Hyperplasia) Elevated Psa Venous Insufficiency of Both Lower Extremities Current Outpatient Medications Medication Sig ergocalciferol 50,000 unit capsule (VITAMIN D2, DRISDOL) Take 1 capsule by mouth one time a week. amLODIPine (NORVASC) 10 mg tablet Take 1 tablet by mouth once daily. tamsulosin ER (FLOMAX) 0.4 mg cp24 Take 1 capsule by mouth daily at bedtime. folic acid 400 mcg tablet Take 1 tablet by mouth once daily. aspirin, enteric coated (ASPIR-81) 81 mg EC tablet Take 1 tablet by mouth once daily. finasteride (PROSCAR) 5 mg tablet Take 1 tablet by mouth once daily. CENTRUM SILVER TAB Take one(1) tablet daily. Current Facility-Administered Medications Medication Dose Route Frequency cyanocobalamin 1,000 mcg injection 1,000 mcg INTRAMUSCULAR q 1 MONTH cyanocobalamin 1,000 mcg injection 1,000 mcg INTRAMUSCULAR q 1 MONTH Objective BP 132/66 (BP Site: Right Arm, BP Position: Sitting) Resp (P) 16 Wt (P) 78.5 kg (173 lb) BMI (P) 23.73 kg/m Physical Exam Constitutional: General: He is not in acute distress. Cardiovascular: Rate and Rhythm: Normal rate and regular rhythm. Pulses: Normal pulses. Heart sounds: No murmur heard. No gallop. Pulmonary: Effort: Pulmonary effort is normal. Breath sounds: Normal breath sounds. Musculoskeletal: General: No swelling, tenderness or deformity. Right lower leg: No edema. Left lower leg: No edema. Skin: Coloration: Skin is not pale. Findings: No bruising or erythema. Neurological: Mental Status: He is alert. Motor: Weakness present. Gait: Gait normal. Comments: Left leg 4/5 compared with 5/5 right leg. Upper extremities 5/5. Labs to be done. Assessment and Plan 1. Essential hypertension - ICD9: 401.9, ICD10: I10 (primary diagnosis) - fair control - Continue current medication(s) - Have BP checked with B12 injections for more data. - Goal of BP <130/80 2. Pernicious anemia - ICD9: 281.0, ICD10: D51.0 For recheck 3. Venous insufficiency of both lower extremities - ICD9: 459.81, ICD10: I87.2 Controlled. 4. Atrophy of muscle of left lower leg - ICD9: 728.2, ICD10: M62.562 We discussed NEUROLOGY consultation. He will call if symptoms are progressing. 5. Left leg weakness - ICD9: 729.89, ICD10: R29.898 See #4. 6. Raynaud's phenomenon without gangrene - ICD9: 443.0, ICD10: I73.00 Discussed. We agreed to observe for now. Piyush Rivera MD documented in this encounter [facility] 07-03-2022 History of Presen t illness Narrative Patient presents for B-12 injection. Denies any problems at this time. Patient instructed on any SE of medication, verbalized understanding and agreed to proceed with treatment. Tolerated injection well. Ramonita Trevino LPN documented in this encounter [facility] 06-05-2022 History of Presen t illness Narrative Patient presents for B-12 injection. Denies any problems at this time. Patient instructed on any SE of medication, verbalized understanding and agreed to proceed with treatment. Tolerated injection well. Pt also to receive COVID and flu vaccines. Ramonita Trevino LPN documented in this encounter [facility] 05-03-2022 History of Presen t illness Narrative Patient presents for B-12 injection. Denies any problems at this time. Patient instructed on any SE of medication, verbalized understanding and agreed to proceed with treatment. Tolerated injection well. Ramonita Trevino LPN documented in this encounter [facility] 04-03-2022 History of Presen t illness Narrative Patient presents for B-12 injection. Denies any problems at this time. Patient instructed on any SE of medication, verbalized understanding and agreed to proceed with treatment. Tolerated injection well. Ramonita Trevino LPN documented in this encounter [facility] 03-29-2022 Miscellaneous Notes Noted Negra Odonnell APRN.CNP Patient calling he did home COVID test today, was positive. Patient said began with symptoms yesterday (03/28)having sore throat. He has had sinus drainage for quite some time. Patient wanted to just have a PCR test done to make sure of the results. Advised he could go on his my chart and schedule COVID test or he could go into the [facility] care if his my chart is not functioning. Patient said he will go to his my chart. Patient did not give any interest in oral antiviral medication. documented in this encounter [facility] 03-06-2022 History of Presen t illness Narrative Patient presents for B-12 injection. Denies any problems at this time. Patient instructed on any SE of medication, verbalized understanding and agreed to proceed with treatment. Tolerated injection well. Ramonita Trevino LPN documented in this encounter [facility] 02-20-2022 Miscellaneous Notes JED: 01/11/2022 Last refill: 11/25/2021 QTY: 12 Refills: 0 Patient's request for medication is as follows: Pending Prescriptions Disp Refills ERGOCALCIFEROL (VITAMIN D2) 1,250 MCG (50,000 UNIT) CAPSULE 12 capsule 3 Sig: Take 1 capsule by mouth one time a week. NASIM: No Please approve the above prescription(s) to electronically send to pharmacy. Johnie Rosa Ma Patient has been identified by name and date of : Yes Pending Prescriptions Disp Refills ERGOCALCIFEROL (VITAMIN D2) 1,250 MCG (50,000 UNIT) CAPSULE 12 capsule 3 Sig: Take 1 capsule by mouth one time a week. NASIM: No RX INSTRUCTIONS: Patient requested 90 days and refills for one year. Patient aware RX will be sent to pharmacy. No need to notify patient. Ayah Ely Pss documented in this encounter [facility] 01-30-2022 History of Presen t illness Narrative Patient presents for B-12 injection. Denies any problems at this time. Patient instructed on any SE of medication, verbalized understanding and agreed to proceed with treatment. Tolerated injection well. Ramonita Trevino LPN documented in this encounter [facility] 01-11-2022 History of Presen t illness Narrative Radiology Service Progress Note PATIENT NAME: Heriberto Peñaloza DATE OF SERVICE: January 11, 2022 TIME: 9:41 AM PATIENT IDENTITY VERIFICATION COMPLETED USING TWO (2) IDENTIFIERS: Name and Date of confirmed by patient verbally. FALL SCREENING: Has the patient had 2 falls in the last year or 1 fall with injury or currently using an Ambulatory Assistive Device (Walker, Cane, Wheelchair, Crutches, etc.)? No PATIENT GENDER DATA: Male PATIENT RELEVANT IMPLANT DATA REVIEWED: Yes RADIOLOGY DEPARTMENT: General X-ray: Exam(s) Completed: Chest X-Ray PERIPHERAL IV DATA: Not applicable SIGNED BY: RT Alyce(R) January 11, 2022 9:41 AM documented in this encounter [facility] 01-11-2022 History of Presen t illness Narrative This note was created using [employer]. Subjective Heriberto Peñaloza is a 71 year old male. He was doing well and enjoying golfing. Dependent edema was mild and stable. Hypertension and lipids were controlled. Vitamin D was supplemented. We reviewed his lab results. Review of Systems Constitutional: Negative for chills, fever and unexpected weight change. HENT: Negative for congestion and sore throat. Eyes: Negative. Respiratory: Negative for cough, chest tightness, shortness of breath and wheezing. Cardiovascular: Positive for leg swelling. Negative for chest pain and palpitations. Gastrointestinal: Negative. Genitourinary: Negative. Musculoskeletal: Negative. Neurological: Negative for dizziness and headaches. Psychiatric/Behavioral: Negative. ACTIVE PROBLEM LIST Pernicious Anemia H/O MALIGNANT MELANOMA/PERS HX MALIG SKIN MELANOMA Essential Hypertension Other Seborrheic Keratoses Vitamin D Deficiency Bph (Benign Prostatic Hyperplasia) Elevated Psa Current Outpatient Medications Medication Sig amLODIPine (NORVASC) 10 mg tablet Take 1 tablet by mouth once daily. ergocalciferol 50,000 unit capsule (VITAMIN D2, DRISDOL) Take 1 capsule by mouth one time a week. tamsulosin ER (FLOMAX) 0.4 mg cp24 Take 1 capsule by mouth daily at bedtime. folic acid 400 mcg tablet Take 1 tablet by mouth once daily. aspirin, enteric coated (ASPIR-81) 81 mg EC tablet Take 1 tablet by mouth once daily. finasteride (PROSCAR) 5 mg tablet Take 1 tablet by mouth once daily. CENTRUM SILVER TAB Take one(1) tablet daily. Current Facility-Administered Medications Medication Dose Route Frequency cyanocobalamin 1,000 mcg injection 1,000 mcg INTRAMUSCULAR q 1 MONTH cyanocobalamin 1,000 mcg injection 1,000 mcg INTRAMUSCULAR q 1 MONTH Objective BP 130/68 (BP Site: Right Arm, BP Position: Sitting) Pulse 76 Temp 36.6 C (97.9 F) (Temporal Artery) Resp 12 Ht 181.9 cm (5' 11.6) Wt 78 kg (172 lb) BMI 23.59 kg/m Physical Exam Constitutional: General: He is not in acute distress. Appearance: He is not ill-appearing. Cardiovascular: Rate and Rhythm: Normal rate and regular rhythm. Heart sounds: No murmur heard. No gallop. Pulmonary: Effort: Pulmonary effort is normal. Breath sounds: Examination of the right-lower field reveals wheezing and rhonchi. Examination of the left-lower field reveals rhonchi. Wheezing and rhonchi present. Abdominal: General: There is no distension. Palpations: Abdomen is soft. Musculoskeletal: Right lower le+ Pitting Edema present. Left lower le+ Pitting Edema present. Neurological: General: No focal deficit present. Mental Status: He is alert. Gait: Gait normal. Component Latest Ref Rng & Units 12/26/2021 Protein, Total 6.3 - 8.0 g/dL 6.5 Albumin 3.9 - 4.9 g/dL 4.0 Calcium 8.5 - 10.2 mg/dL 9.1 Bilirubin, Total 0.2 - 1.3 mg/dL 0.6 Alkaline Phosphatase 38 - 113 U/L 87 AST 14 - 40 U/L 18 ALT 10 - 54 U/L 12 Glucose 74 - 99 mg/dL 103 (H) BUN 9 - 24 mg/dL 17 Creatinine 0.73 - 1.22 mg/dL 1.08 Sodium 136 - 144 mmol/L 139 Potassium 3.7 - 5.1 mmol/L 4.1 Chloride 97 - 105 mmol/L 104 CO2 22 - 30 mmol/L 29 Anion Gap 9 - 18 mmol/L 6 (L) eGFR >=60 mL/min/1.73m 73 Cholesterol, Total <200 mg/dL 159 Triglyceride <150 mg/dL 46 HDL Cholesterol >39 mg/dL 66 Non HDL Cholesterol <130 mg/dL 93 Fasting Time hrs 12 VLDL Cholesterol <30 mg/dL 9 TC:HDL Ratio <5.10 2.41 LDL Cholesterol <100 mg/dL 84 LDL:HDL Ratio <2.54 1.27 Vitamin D 25 Hydroxy 31.0 - 80.0 ng/mL 64.3 Assessment and Plan 1. Medicare annual wellness visit, subsequent - ICD9: V70.0, ICD10: Z00.00 (primary diagnosis) See wellness note. 2. Essential hypertension - ICD9: 401.9, ICD10: I10 - good control - Continue current medication(s) - Goal of BP <130/80 3. Wheezing - ICD9: 786.07, ICD10: R06.2 Allergies? - XR CHEST 2V FRONTAL/LAT 4. Need for COVID-19 vaccine - ICD9: V04.89, ICD10: Z23 - [employer] COVID-19 VACCINE, AGE 12+ YR (BUI TOP) 5. Pernicious anemia - ICD9: 281.0, ICD10: D51.0 Recheck. - CBC - BASIC METABOLIC PNL - VITAMIN B12 BLOOD 6. Venous insufficiency of both lower extremities - ICD9: 459.81, ICD10: I87.2 Try OTC compression stockings. Piyush Rivera MD Medicare Yearly Visit Medical B eligibilty date 05/27/2015 Date of last exam 01/03/2021 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 BPH (benign prostatic hyperplasia) 07/30/2014 Cholelithiasis and acute cholecystitis without obstruction 08/16/2017 Elevated PSA 07/30/2014 Essential hypertension 03/05/2009 H/O MALIGNANT MELANOMA/PERS HX MALIG SKIN MELANOMA 06/03/2007 HYPERTENSION NOS 03/05/2009 Hypertrophy of prostate with urinary obstruction and other lower urinary tract symptoms (LUTS) 08/15/2007 Internal hemorrhoids without mention of complication MALIG NEOPL STOMACH NOS 09/04/2007 Pernicious anemia 09/13/2005 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 Ureterolithiasis 01/02/2017 right PAST SURGICAL HISTORY Procedure Laterality Date COLONOSCOPY FLX DX W/COLLJ SPEC WHEN PFRMD 11/27/2006 COLONOSCOPY FLX DX W/COLLJ SPEC WHEN PFRMD 12/25/2014 COLONOSCOPY FLX DX W/COLLJ SPEC WHEN PFRMD 04/21/2020 Colonoscopy CYSTOSCOPY,URETEROSCOPY,LITHOTR IPSY Right 01/10/2017 Stent placement, removal, 01/10/17; 01/03/17 ESOPHAGOGASTRODUODENOSCOPY TRANSORAL DIAGNOSTIC 11/27/2006 LAPS SURG CHOLECYSTECTOMY W/CHOLANGIOGRAPHY 08/16/2017 [facility] PAST SURGICAL HISTORY OF November Total gastrectomy- stomach CA, Trdui n Y jejunostomy PAST SURGICAL HISTORY OF Left 1989 left knee arthroscopy, PAST SURGICAL HISTORY OF Right 02/04/2015 Retroperitoneal cyst excision PROSTATE BIOPSY W/TRANSRECTAL US 04/29/2019 [facility] 1ST INGUN HRNA AGE 5 YRS/> REDUCIBLE 10/03/2010 RIGHT SHOULDER SURGERY HX Right 2019 ALLERGIES: Polysporin [Bacitracin-Polymyxin B] Medications reviewed: Yes FAMILY HISTORY Problem Relation Age of Onset None Father failure to thrive None Mother failure to thrive SOCIAL HISTORY: Social History Tobacco Use Smoking status: Never Smoker Smokeless tobacco: Never Used Vaping Use Vaping Use: Never used Substance Use Topics Alcohol use: Yes Alcohol/week: 8.0 standard drinks Types: 8 Glasses of Wine (5oz) per week Drug use: No Comment: not usually Heriberto likes to exercise by aerobics class/tape 3-4 times per week plus golfing. He watches his diet for sodium, low fat and low cholesterol most of the time. List of current specialists seen: Dr. Ermelinda Gregg, urology. Dr. Bob Campos, dermatology. Dr. Hurtado, ophthalmology. End of Live Planning discussed including patients advanced directive wishes: Yes I am willing to follow Heriberto's advanced directives. PHQ-2 / Depression screen He in the past two weeks denies having felt down, depressed, hopeless or with little interest or pleasure in doing things. PHQ-2 Score: 0 PHQ-9 Score: 2 Functional Ability/Safety Screen 1. Was the patient's timed Up and Go test unsteady or longer than 30 seconds? No 2. Does the patient need help with the phone, transportation, shopping,preparing meals, housework, laundry, medications or managing money? No 3. Does your home have rugs in the hallway, lack of grab bars in the bathroom, lack of handrails on the stairs or have poor lighting? No Hearing Evaluation: normal PHYSICAL EXAM BP 136/68 (BP Site: Right Arm, BP Position: Sitting, BP Cuff Size: Large Adult) Pulse 76 Temp 36.6 C (97.9 F) (Temporal Artery) Resp 12 Ht 181.9 cm (5' 11.6) Wt 78 kg (172 lb) BMI 23.59 kg/m Alert and oriented X 3: YES Body mass index is 23.59 kg/m . Visual acuity: OD: 20/30 OS: 20/ 25 OU: 20/40 The Mini Cog(c): Word recall=3/3 + Clock drawing=2/2=5/5. (<3 is positive). ASSESSMENT/PLAN: 71 year old male The following prevention plan was discussed during the office visit and provided to the patient: - Fall avoidance - Vaccines recommended COVID-19 - ADVANCED CARE PLANNING discussion. Piyush Rivera MD documented in this encounter [facility] 01-11-2022 Instructions Piyush Rivera MD - 01/11/2022 9:32 AM EDT Try compression stockings. Copy of living will please. documented in this encounter [facility] 12-28-2021 Miscellaneous Notes Patient has been identified by name and date of : Yes Pharmacy phones for refill(s): Pending Prescriptions Disp Refills AMLODIPINE 10 MG TABLET 90 tablet 3 Sig: Take 1 tablet by mouth once daily. NASIM: No Date of last office visit in primary care: 04/13/21, NOV: 01/11/22 Last 2 Encounter Wt Readings: Date: Wt: 04/13/2021 77.1 kg (170 lb) 01/03/2021 78.9 kg (174 lb) Previous labs/tests for medication: Blood Pressure: BUN (mg/dL) Date Value 12/26/2021 17 12/30/2020 17 Sodium (mmol/L) Date Value 12/26/2021 139 12/30/2020 142 Last 1 Encounter BP Readings: Date: BP: 04/13/2021 130/68 Please advise. Thank you. Rosa Branch RN documented in this encounter [facility] 12-26-2021 History of Presen t illness Narrative Patient presents for B-12 injection. Denies any problems at this time. Patient instructed on any SE of medication, verbalized understanding and agreed to proceed with treatment. Tolerated injection well. Ramonita Trevino LPN documented in this encounter [facility] 11-28-2021 History of Presen t illness Narrative Patient presents for B-12 injection. Denies any problems at this time. Patient instructed on any SE of medication, verbalized understanding and agreed to proceed with treatment. Tolerated injection well. Ramonita Trevino LPN documented in this encounter [facility] 01-27-2021 Note Procedure (SUSANA) HERIBERTO PEÑALOZA ([id number]) 1950 M NFR Date Time Provider Department 01/27/21 10:45 AM NEUR LAB MAIN 2 SUSANA During your visit today, we recorded the following information about you: Referring Provider: PIYUSH RIVERA [[id number]] Allergies As of Date: 01/27/2021 Noted Allergy Reaction POLYSPORIN (BACITRACIN-POLYMYXIN *07/15/2007 2 - Rash Date Reviewed: 01/03/2021 Reviewed by: Fatou Rodriguez LPN - Fully Assessed Reason for Visit: Musculoskeletal Problem [69] Visit Diagnoses:Left leg weakness [R29.898] Atrophy of muscle of left lower leg [M62.562] Weakness [R53.1] Order(s):EMG(NEURO/NI) [[id number]] Order #: [id number]. #:[id number] 1 Prescriptions as of 01/27/2021 Sig: AMLODIPINE 10 MG TABLET Take 1 tablet by mouth once d* ERGOCALCIFEROL (VITAMIN D2) 1* Take 1 capsule by mouth one t* TAMSULOSIN 0.4 MG CAPSULE Take 1 capsule by mouth daily* FOLIC ACID 400 MCG TABLET Take 1 tablet by mouth once d* ASPIRIN 81 MG TABLET,DELAYED * Take 1 tablet by mouth once d* FINASTERIDE 5 MG TABLET Take 1 tablet by mouth once d* * CENTRUM SILVER TABLET Take one(1) tablet daily. Problem List As Of Date 01/27/2021 Noted Resolved PERNICIOUS ANEMIA [D51.0] 09/13/2005 Elevated prostate specific antigen (PSA) [R97.2*10/22/2006 04/04/2012 ANEMIA NOS [D64.9] 09/09/2007 H/O MALIGNANT MELANOMA/PERS HX MALIG SKIN MELAN*06/03/2007 BPH W URINARY OBS/LUTS [N40.1, N13.8] 08/15/2007 07/30/2014 Malignant neoplasm of stomach, unspecified site*09/04/2007 07/29/2012 Routine general medical examination at [facility]*02/01/2009 09/07/2015 Essential hypertension [I10] 03/05/2009 Melanocytic Nevi/ Benign Neoplasm of Skin of Tr*06/18/2009 01/12/2017 NEVI FACE///Benign Neoplasm of Skin [D23.30] 06/18/2009 01/12/2017 Other Seborrheic Keratoses [L82.1] 06/18/2009 Solar Lentigines [L81.4] 06/18/2009 09/07/2015 Actnic Damage//Sun-Damaged Skin [L57.8] 06/18/2009 09/07/2015 H/O BCC//// of Other Malignant Neoplasm [Z85.82*06/18/2009 01/12/2017 Scar condition and fibrosis of skin [L90.5] 06/18/2009 09/07/2015 Bladder neck obstruction [N32.0] 08/05/2009 07/30/2014 Inguinal hernia [K40.90] 10/13/2010 02/23/2014 Vitamin D deficiency [E55.9] 07/31/2011 Irritated//Inflamed Seborrheic Keratosis [L82.0]03/05/2012 09/07/2015 Melanocytic Nevi of trunk: Junctional and Intra*03/05/2012 01/12/2017 Atypical nevus of abdominal wall [D22.5] 12/31/2012 01/12/2017 Melanocytic nevi of upper extremity or shoulder*12/31/2012 01/12/2017 Dermatofibroma of shoulder [D23.60] 12/31/2012 09/07/2015 BPH (benign prostatic hyperplasia) [N40.0] 07/30/2014 Elevated PSA [R97.20] 07/30/2014 Retroperitoneal mass [R19.00] 02/04/2015 09/07/2015 Encounter Status:Closed by [facility]S on 01/28/21 [facility] 02-04-2015 History of Past i llness Narrative Problem Noted Date Resolved Date 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 09/07/2015 Atypical nevus of abdominal wall 12/31/2012 01/12/2017 Melanocytic nevi of upper extremity or shoulder 12/31/2012 01/12/2017 Dermatofibroma of shoulder 12/31/201209/07 Irritated//Inflamed Seborrheic Keratosis 012 09/07/2015 Melanocytic Nevi of trunk: J unctional and Intradermal Pigmented Nevi of lower chest, abdomen, and back 03/05/201201/12 Inguinal hernia 10/13/2010 02/23/2014 Bladder neck obstruction 08/05/2009 014 Melanocytic Nevi/ Benign Neoplasm of Skin of Daniel nk 06/18/2009 01/12/2017 NEVI FACE///Benign Neoplasm of Skin 06/18/2009 01/12/2017 Solar Lentigines 06/18/2009 09/07/2015 Actnic Damage//Sun-Damaged Skin 06/18/2009 09/07/2015 H/O BCC//// of Other Malignant Neoplasm 06/18/20 09 01/12/2017 Scar condition and fibrosis of skin 06/18/2009 09/07/2015 Routine general medical exam ination at a health care facility 02/01/2009 09/07/2015 Overview: Colon 12-01: internal hems with no polyps Malignant neoplasm of stomach, 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 07/29/2012 Overview: 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 Completed Chemo in 07-29 BPH W URINARY OBS/LUTS 08/15/2007 4 Elevated prostate specific antigen (PSA) 007 04/04/2012 Overview: PSA 10.8 in 07-04, 12 in 02-02: Malgieri rec repeat in 3 mo and consider Proscar Prostate in 01-31: bilateral biopsies with benign tissue Anemia, unspecified 09/09/2007 documented as of this encounter (statuses as of 11/28/2021) [facility] History of Past illness Narrative* Problem Noted Date Resolved Date 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 09/07/2015 Atypical nevus of abdominal wall 12/31/2012 01/12/2017 Melanocytic nevi of upper extremity or shoulder 12/31/2012 01/12/2017 Dermatofibroma of shoulder 12/31/201209/07 Irritated//Inflamed Seborrheic Keratosis 012 09/07/2015 Melanocytic Nevi of trunk: J unctional and Intradermal Pigmented Nevi of lower chest, abdomen, and back 03/05/201201/12 Inguinal hernia 10/13/2010 02/23/2014 Bladder neck obstruction 08/05/2009 014 Melanocytic Nevi/ Benign Neoplasm of Skin of Daniel nk 06/18/2009 01/12/2017 NEVI FACE///Benign Neoplasm of Skin 06/18/2009 01/12/2017 Solar Lentigines 06/18/2009 09/07/2015 Actnic Damage//Sun-Damaged Skin 06/18/2009 09/07/2015 H/O BCC//// of Other Malignant Neoplasm 06/18/20 09 01/12/2017 Scar condition and fibrosis of skin 06/18/2009 09/07/2015 Routine general medical exam ination at a health care facility 02/01/2009 09/07/2015 Overview: Colon 4-07: internal hems with no polyps Malignant neoplasm of stomach, 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 07/29/2012 Overview: 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 Completed Chemo in 07-29 BPH W URINARY OBS/LUTS 08/15/2007 4 Elevated prostate specific antigen (PSA) 007 04/04/2012 Overview: PSA 10.8 in 07-04, 12 in 02-02: Malgieri rec repeat in 3 mo and consider Proscar Prostate in 01-31: bilateral biopsies with benign tissue Anemia, unspecified 09/09/2007 documented as of this encounter (statuses as of 12/26/2021) [facility] of Past illness Narrative* Problem Noted Date Resolved Date 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 09/07/2015 Atypical nevus of abdominal wall 12/31/2012 01/12/2017 Melanocytic nevi of upper extremity or shoulder 12/31/2012 01/12/2017 Dermatofibroma of shoulder 12/31/201209/07 Irritated//Inflamed Seborrheic Keratosis 012 09/07/2015 Melanocytic Nevi of trunk: J unctional and Intradermal Pigmented Nevi of lower chest, abdomen, and back 03/05/201201/12 Inguinal hernia 10/13/2010 02/23/2014 Bladder neck obstruction 08/05/2009 014 Melanocytic Nevi/ Benign Neoplasm of Skin of Daniel nk 06/18/2009 01/12/2017 NEVI FACE///Benign Neoplasm of Skin 06/18/2009 01/12/2017 Solar Lentigines 06/18/2009 09/07/2015 Actnic Damage//Sun-Damaged Skin 06/18/2009 09/07/2015 H/O BCC//// of Other Malignant Neoplasm 06/18/20 09 01/12/2017 Scar condition and fibrosis of skin 06/18/2009 09/07/2015 Routine general medical exam ination at a health care facility 02/01/2009 09/07/2015 Overview: Colon 4-07: internal hems with no polyps Malignant neoplasm of stomach, 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 07/29/2012 Overview: 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 Completed Chemo in 07-29 BPH W URINARY OBS/LUTS 08/15/2007 4 Elevated prostate specific antigen (PSA) 007 04/04/2012 Overview: PSA 10.8 in 07-04, 12 in 02-02: Malgieri rec repeat in 3 mo and consider Proscar Prostate in 01-31: bilateral biopsies with benign tissue Anemia, unspecified 09/09/2007 documented as of this encounter (statuses as of 12/28/2021) [facility] of Past illness Narrative* Problem Noted Date Resolved Date 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 09/07/2015 Atypical nevus of abdominal wall 12/31/2012 01/12/2017 Melanocytic nevi of upper extremity or shoulder 12/31/2012 01/12/2017 Dermatofibroma of shoulder 12/31/201209/07 Irritated//Inflamed Seborrheic Keratosis 012 09/07/2015 Melanocytic Nevi of trunk: J unctional and Intradermal Pigmented Nevi of lower chest, abdomen, and back 03/05/201201/12 Inguinal hernia 10/13/2010 02/23/2014 Bladder neck obstruction 08/05/2009 014 Melanocytic Nevi/ Benign Neoplasm of Skin of Daniel nk 06/18/2009 01/12/2017 NEVI FACE///Benign Neoplasm of Skin 06/18/2009 01/12/2017 Solar Lentigines 06/18/2009 09/07/2015 Actnic Damage//Sun-Damaged Skin 06/18/2009 09/07/2015 H/O BCC//// of Other Malignant Neoplasm 06/18/20 09 01/12/2017 Scar condition and fibrosis of skin 06/18/2009 09/07/2015 Routine general medical exam ination at a health care facility 02/01/2009 09/07/2015 Overview: Colon 4-07: internal hems with no polyps Malignant neoplasm of stomach, 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 07/29/2012 Overview: 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 Completed Chemo in 07-29 BPH W URINARY OBS/LUTS 08/15/2007 4 Elevated prostate specific antigen (PSA) 007 04/04/2012 Overview: PSA 10.8 in 07-04, 12 in 02-02: Malgieri rec repeat in 3 mo and consider Proscar Prostate in 01-31: bilateral biopsies with benign tissue Anemia, unspecified 09/09/2007 documented as of this encounter (statuses as of 01/11/2022) [facility] of Past illness Narrative* Problem Noted Date Resolved Date 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 09/07/2015 Atypical nevus of abdominal wall 12/31/2012 01/12/2017 Melanocytic nevi of upper extremity or shoulder 12/31/2012 01/12/2017 Dermatofibroma of shoulder 12/31/201209/07 Irritated//Inflamed Seborrheic Keratosis 012 09/07/2015 Melanocytic Nevi of trunk: J unctional and Intradermal Pigmented Nevi of lower chest, abdomen, and back 03/05/201201/12 Inguinal hernia 10/13/2010 02/23/2014 Bladder neck obstruction 08/05/2009 014 Melanocytic Nevi/ Benign Neoplasm of Skin of Daniel nk 06/18/2009 01/12/2017 NEVI FACE///Benign Neoplasm of Skin 06/18/2009 01/12/2017 Solar Lentigines 06/18/2009 09/07/2015 Actnic Damage//Sun-Damaged Skin 06/18/2009 09/07/2015 H/O BCC//// of Other Malignant Neoplasm 06/18/20 09 01/12/2017 Scar condition and fibrosis of skin 06/18/2009 09/07/2015 Routine general medical exam ination at a health care facility 02/01/2009 09/07/2015 Overview: Colon 12-01: internal hems with no polyps Malignant neoplasm of stomach, 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 07/29/2012 Overview: 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 Completed Chemo in 07-29 BPH W URINARY OBS/LUTS 08/15/2007 4 Elevated prostate specific antigen (PSA) 007 04/04/2012 Overview: PSA 10.8 in 07-04, 12 in 02-02: Malgieri rec repeat in 3 mo and consider Proscar Prostate in 01-31: bilateral biopsies with benign tissue Anemia, unspecified 09/09/2007 documented as of this encounter (statuses as of 01/30/2022) [facility] of Past illness Narrative* Problem Noted Date Resolved Date 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 09/07/2015 Atypical nevus of abdominal wall 12/31/2012 01/12/2017 Melanocytic nevi of upper extremity or shoulder 12/31/2012 01/12/2017 Dermatofibroma of shoulder 12/31/201209/07 Irritated//Inflamed Seborrheic Keratosis 012 09/07/2015 Melanocytic Nevi of trunk: J unctional and Intradermal Pigmented Nevi of lower chest, abdomen, and back 03/05/201201/12 Inguinal hernia 10/13/2010 02/23/2014 Bladder neck obstruction 08/05/2009 014 Melanocytic Nevi/ Benign Neoplasm of Skin of Daniel nk 06/18/2009 01/12/2017 NEVI FACE///Benign Neoplasm of Skin 06/18/2009 01/12/2017 Solar Lentigines 06/18/2009 09/07/2015 Actnic Damage//Sun-Damaged Skin 06/18/2009 09/07/2015 H/O BCC//// of Other Malignant Neoplasm 06/18/20 09 01/12/2017 Scar condition and fibrosis of skin 06/18/2009 09/07/2015 Routine general medical exam ination at a health care facility 02/01/2009 09/07/2015 Overview: Colon 07: internal hems with no polyps Malignant neoplasm of stomach, 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 07/29/2012 Overview: 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 Completed Chemo in 07-29 BPH W URINARY OBS/LUTS 08/15/2007 4 Elevated prostate specific antigen (PSA) 007 04/04/2012 Overview: PSA 10.8 in 07-04, 12 in 02-02: Malgieri rec repeat in 3 mo and consider Proscar Prostate in 01-31: bilateral biopsies with benign tissue Anemia, unspecified 09/09/2007 documented as of this encounter (statuses as of 02/20/2022) [facility] illness Narrative* Problem Noted Date Resolved Date 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 09/07/2015 Atypical nevus of abdominal wall 12/31/2012 01/12/2017 Melanocytic nevi of upper extremity or shoulder 12/31/2012 01/12/2017 Dermatofibroma of shoulder 12/31/201209/07 Irritated//Inflamed Seborrheic Keratosis 012 09/07/2015 Melanocytic Nevi of trunk: J unctional and Intradermal Pigmented Nevi of lower chest, abdomen, and back 03/05/201201/12 Inguinal hernia 10/13/2010 02/23/2014 Bladder neck obstruction 08/05/2009 014 Melanocytic Nevi/ Benign Neoplasm of Skin of Daniel nk 06/18/2009 01/12/2017 NEVI FACE///Benign Neoplasm of Skin 06/18/2009 01/12/2017 Solar Lentigines 06/18/2009 09/07/2015 Actnic Damage//Sun-Damaged Skin 06/18/2009 09/07/2015 H/O BCC//// of Other Malignant Neoplasm 06/18/20 09 01/12/2017 Scar condition and fibrosis of skin 06/18/2009 09/07/2015 Routine general medical exam ination at a health care facility 02/01/2009 09/07/2015 Overview: Colon -07: internal hems with no polyps Malignant neoplasm of stomach, 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 07/29/2012 Overview: Gastrectomy in -: reportedly metastatic at this time Completed Chemo in 07-29 BPH W URINARY OBS/LUTS 08/15/2007 4 Elevated prostate specific antigen (PSA) 007 04/04/2012 Overview: PSA 10.8 in 07-04, 12 in 02-02: Malgieri rec repeat in 3 mo and consider Proscar Prostate in 01-31: bilateral biopsies with benign tissue Anemia, unspecified 09/09/2007 documented as of this encounter (statuses as of 03/06/2022) [facility] Narrative* Problem Noted Date Resolved Date 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 09/07/2015 Atypical nevus of abdominal wall 12/31/2012 01/12/2017 Melanocytic nevi of upper extremity or shoulder 12/31/2012 01/12/2017 Dermatofibroma of shoulder 12/31/201209/07 Irritated//Inflamed Seborrheic Keratosis 012 09/07/2015 Melanocytic Nevi of trunk: J unctional and Intradermal Pigmented Nevi of lower chest, abdomen, and back 03/05/201201/12 Inguinal hernia 10/13/2010 02/23/2014 Bladder neck obstruction 08/05/2009 014 Melanocytic Nevi/ Benign Neoplasm of Skin of Daniel nk 06/18/2009 01/12/2017 NEVI FACE///Benign Neoplasm of Skin 06/18/2009 01/12/2017 Solar Lentigines 06/18/2009 09/07/2015 Actnic Damage//Sun-Damaged Skin 06/18/2009 09/07/2015 H/O BCC//// of Other Malignant Neoplasm 06/18/20 09 01/12/2017 Scar condition and fibrosis of skin 06/18/2009 09/07/2015 Routine general medical exam ination at a health care facility 02/01/2009 09/07/2015 Overview: Colon 12-01: internal hems with no polyps Malignant neoplasm of stomach, 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 07/29/2012 Overview: 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 Completed Chemo in 07-29 BPH W URINARY OBS/LUTS 08/15/2007 4 Elevated prostate specific antigen (PSA) 007 04/04/2012 Overview: PSA 10.8 in 07-04, 12 in 02-02: Malgieri rec repeat in 3 mo and consider Proscar Prostate in 01-31: bilateral biopsies with benign tissue Anemia, unspecified 09/09/2007 documented as of this encounter (statuses as of 03/29/2022) [facility]arrative* Problem Noted Date Resolved Date 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 09/07/2015 Atypical nevus of abdominal wall 12/31/2012 01/12/2017 Melanocytic nevi of upper extremity or shoulder 12/31/2012 01/12/2017 Dermatofibroma of shoulder 12/31/201209/07 Irritated//Inflamed Seborrheic Keratosis 012 09/07/2015 Melanocytic Nevi of trunk: J unctional and Intradermal Pigmented Nevi of lower chest, abdomen, and back 03/05/201201/12 Inguinal hernia 10/13/2010 02/23/2014 Bladder neck obstruction 08/05/2009 014 Melanocytic Nevi/ Benign Neoplasm of Skin of Daniel nk 06/18/2009 01/12/2017 NEVI FACE///Benign Neoplasm of Skin 06/18/2009 01/12/2017 Solar Lentigines 06/18/2009 09/07/2015 Actnic Damage//Sun-Damaged Skin 06/18/2009 09/07/2015 H/O BCC//// of Other Malignant Neoplasm 06/18/20 09 01/12/2017 Scar condition and fibrosis of skin 06/18/2009 09/07/2015 Routine general medical exam ination at a health care facility 02/01/2009 09/07/2015 Overview: Colon 12-01: internal hems with no polyps Malignant neoplasm of stomach, 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 07/29/2012 Overview: 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 Completed Chemo in 07-29 BPH W URINARY OBS/LUTS 08/15/2007 4 Elevated prostate specific antigen (PSA) 007 04/04/2012 Overview: PSA 10.8 in 07-04, 12 in 02-02: Malgieri rec repeat in 3 mo and consider Proscar Prostate in 01-31: bilateral biopsies with benign tissue Anemia, unspecified 09/09/2007 documented as of this encounter (statuses as of 04/03/2022) [facility]arrative* Problem Noted Date Resolved Date 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 09/07/2015 Atypical nevus of abdominal wall 12/31/2012 01/12/2017 Melanocytic nevi of upper extremity or shoulder 12/31/2012 01/12/2017 Dermatofibroma of shoulder 12/31/201209/07 Irritated//Inflamed Seborrheic Keratosis 012 09/07/2015 Melanocytic Nevi of trunk: J unctional and Intradermal Pigmented Nevi of lower chest, abdomen, and back 03/05/201201/12 Inguinal hernia 10/13/2010 02/23/2014 Bladder neck obstruction 08/05/2009 014 Melanocytic Nevi/ Benign Neoplasm of Skin of Daniel nk 06/18/2009 01/12/2017 NEVI FACE///Benign Neoplasm of Skin 06/18/2009 01/12/2017 Solar Lentigines 06/18/2009 09/07/2015 Actnic Damage//Sun-Damaged Skin 06/18/2009 09/07/2015 H/O BCC//// of Other Malignant Neoplasm 06/18/20 09 01/12/2017 Scar condition and fibrosis of skin 06/18/2009 09/07/2015 Routine general medical exam ination at a health care facility 02/01/2009 09/07/2015 Overview: Colon 12-01: internal hems with no polyps Malignant neoplasm of stomach, 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 07/29/2012 Overview: 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 Completed Chemo in 07-29 BPH W URINARY OBS/LUTS 08/15/2007 4 Elevated prostate specific antigen (PSA) 007 04/04/2012 Overview: PSA 10.8 in 07-04, 12 in 02-02: Malgieri rec repeat in 3 mo and consider Proscar Prostate in 01-31: bilateral biopsies with benign tissue Anemia, unspecified 09/09/2007 documented as of this encounter (statuses as of 05/03/2022) [facility]arrative* Problem Noted Date Resolved Date 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 09/07/2015 Atypical nevus of abdominal wall 12/31/2012 01/12/2017 Melanocytic nevi of upper extremity or shoulder 12/31/2012 01/12/2017 Dermatofibroma of shoulder 12/31/201209/07 Irritated//Inflamed Seborrheic Keratosis 012 09/07/2015 Melanocytic Nevi of trunk: J unctional and Intradermal Pigmented Nevi of lower chest, abdomen, and back 03/05/201201/12 Inguinal hernia 10/13/2010 02/23/2014 Bladder neck obstruction 08/05/2009 014 Melanocytic Nevi/ Benign Neoplasm of Skin of Daniel nk 06/18/2009 01/12/2017 NEVI FACE///Benign Neoplasm of Skin 06/18/2009 01/12/2017 Solar Lentigines 06/18/2009 09/07/2015 Actnic Damage//Sun-Damaged Skin 06/18/2009 09/07/2015 H/O BCC//// of Other Malignant Neoplasm 06/18/20 09 01/12/2017 Scar condition and fibrosis of skin 06/18/2009 09/07/2015 Routine general medical exam ination at a health care facility 02/01/2009 09/07/2015 Overview: Colon 12-01: internal hems with no polyps Malignant neoplasm of stomach, 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 07/29/2012 Overview: 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 Completed Chemo in 07-29 BPH W URINARY OBS/LUTS 08/15/2007 4 Elevated prostate specific antigen (PSA) 007 04/04/2012 Overview: PSA 10.8 in 07-04, 12 in 02-02: Malgieri rec repeat in 3 mo and consider Proscar Prostate in 01-31: bilateral biopsies with benign tissue Anemia, unspecified 09/09/2007 documented as of this encounter (statuses as of 06/05/2022) [facility]* Problem Noted Date Resolved Date 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 09/07/2015 Atypical nevus of abdominal wall 12/31/2012 01/12/2017 Melanocytic nevi of upper extremity or shoulder 12/31/2012 01/12/2017 Dermatofibroma of shoulder 12/31/201209/07 Irritated//Inflamed Seborrheic Keratosis 012 09/07/2015 Melanocytic Nevi of trunk: J unctional and Intradermal Pigmented Nevi of lower chest, abdomen, and back 03/05/201201/12 Inguinal hernia 10/13/2010 02/23/2014 Bladder neck obstruction 08/05/2009 014 Melanocytic Nevi/ Benign Neoplasm of Skin of Daniel nk 06/18/2009 01/12/2017 NEVI FACE///Benign Neoplasm of Skin 06/18/2009 01/12/2017 Solar Lentigines 06/18/2009 09/07/2015 Actnic Damage//Sun-Damaged Skin 06/18/2009 09/07/2015 H/O BCC//// of Other Malignant Neoplasm 06/18/20 09 01/12/2017 Scar condition and fibrosis of skin 06/18/2009 09/07/2015 Routine general medical exam ination at a health care facility 02/01/2009 09/07/2015 Overview: Colon -: internal hems with no polyps Malignant neoplasm of stomach, 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 07/29/2012 Overview: 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 Completed Chemo in 07-29 BPH W URINARY OBS/LUTS 08/15/2007 4 Elevated prostate specific antigen (PSA) 007 04/04/2012 Overview: PSA 10.8 in 07-04, 12 in 02-02: Malgieri rec repeat in 3 mo and consider Proscar Prostate in 01-31: bilateral biopsies with benign tissue Anemia, unspecified 09/09/2007 documented as of this encounter (statuses as of 07/03/2022) [facility]arrative* Problem Noted Date Resolved Date 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 09/07/2015 Atypical nevus of abdominal wall 12/31/2012 01/12/2017 Melanocytic nevi of upper extremity or shoulder 12/31/2012 01/12/2017 Dermatofibroma of shoulder 12/31/201209/07 Irritated//Inflamed Seborrheic Keratosis 012 09/07/2015 Melanocytic Nevi of trunk: J unctional and Intradermal Pigmented Nevi of lower chest, abdomen, and back 03/05/201201/12 Inguinal hernia 10/13/2010 02/23/2014 Bladder neck obstruction 08/05/2009 014 Melanocytic Nevi/ Benign Neoplasm of Skin of Daniel nk 06/18/2009 01/12/2017 NEVI FACE///Benign Neoplasm of Skin 06/18/2009 01/12/2017 Solar Lentigines 06/18/2009 09/07/2015 Actnic Damage//Sun-Damaged Skin 06/18/2009 09/07/2015 H/O BCC//// of Other Malignant Neoplasm 06/18/20 09 01/12/2017 Scar condition and fibrosis of skin 06/18/2009 09/07/2015 Routine general medical exam ination at a health care facility 02/01/2009 09/07/2015 Overview: Colon -: internal hems with no polyps Malignant neoplasm of stomach, 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 07/29/2012 Overview: 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 Completed Chemo in 07-29 BPH W URINARY OBS/LUTS 08/15/2007 4 Elevated prostate specific antigen (PSA) 007 04/04/2012 Overview: PSA 10.8 in 07-04, 12 in 02-02: Malgieri rec repeat in 3 mo and consider Proscar Prostate in 01-31: bilateral biopsies with benign tissue Anemia, unspecified 09/09/2007 documented as of this encounter (statuses as of 07/14/2022) [facility] Narrative* Problem Noted Date Resolved Date 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 09/07/2015 Atypical nevus of abdominal wall 12/31/2012 01/12/2017 Melanocytic nevi of upper extremity or shoulder 12/31/2012 01/12/2017 Dermatofibroma of shoulder 12/31/201209/07 Irritated//Inflamed Seborrheic Keratosis 012 09/07/2015 Melanocytic Nevi of trunk: J unctional and Intradermal Pigmented Nevi of lower chest, abdomen, and back 03/05/201201/12 Inguinal hernia 10/13/2010 02/23/2014 Bladder neck obstruction 08/05/2009 014 Melanocytic Nevi/ Benign Neoplasm of Skin of Daniel nk 06/18/2009 01/12/2017 NEVI FACE///Benign Neoplasm of Skin 06/18/2009 01/12/2017 Solar Lentigines 06/18/2009 09/07/2015 Actnic Damage//Sun-Damaged Skin 06/18/2009 09/07/2015 H/O BCC//// of Other Malignant Neoplasm 06/18/20 09 01/12/2017 Scar condition and fibrosis of skin 06/18/2009 09/07/2015 Routine general medical exam ination at a health care facility 02/01/2009 09/07/2015 Overview: Colon 12-01: internal hems with no polyps Malignant neoplasm of stomach, 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 07/29/2012 Overview: 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 Completed Chemo in 07-29 BPH W URINARY OBS/LUTS 08/15/2007 4 Elevated prostate specific antigen (PSA) 007 04/04/2012 Overview: PSA 10.8 in 07-04, 12 in 02-02: Malgieri rec repeat in 3 mo and consider Proscar Prostate in 01-31: bilateral biopsies with benign tissue Anemia, unspecified 09/09/2007 documented as of this encounter (statuses as of 07/31/2022) [facility] History of Past illness Narrative* Problem Noted Date Resolved Date 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 09/07/2015 Atypical nevus of abdominal wall 12/31/2012 01/12/2017 Melanocytic nevi of upper extremity or shoulder 12/31/2012 01/12/2017 Dermatofibroma of shoulder 12/31/201209/07 Irritated//Inflamed Seborrheic Keratosis 012 09/07/2015 Melanocytic Nevi of trunk: J unctional and Intradermal Pigmented Nevi of lower chest, abdomen, and back 03/05/201201/12 Inguinal hernia 10/13/2010 02/23/2014 Bladder neck obstruction 08/05/2009 014 Melanocytic Nevi/ Benign Neoplasm of Skin of Daniel nk 06/18/2009 01/12/2017 NEVI FACE///Benign Neoplasm of Skin 06/18/2009 01/12/2017 Solar Lentigines 06/18/2009 09/07/2015 Actnic Damage//Sun-Damaged Skin 06/18/2009 09/07/2015 H/O BCC//// of Other Malignant Neoplasm 06/18/20 09 01/12/2017 Scar condition and fibrosis of skin 06/18/2009 09/07/2015 Routine general medical exam ination at a health care facility 02/01/2009 09/07/2015 Overview: Colon 12-01: internal hems with no polyps Malignant neoplasm of stomach, 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 07/29/2012 Overview: 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 Completed Chemo in 07-29 BPH W URINARY OBS/LUTS 08/15/2007 4 Elevated prostate specific antigen (PSA) 007 04/04/2012 Overview: PSA 10.8 in 07-04, 12 in 02-02: Malgieri rec repeat in 3 mo and consider Proscar Prostate in 01-31: bilateral biopsies with benign tissue Anemia, unspecified 09/09/2007 documented as of this encounter (statuses as of 09/04/2022) [facility] History of Past illness Narrative* Problem Noted Date Resolved Date 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 09/07/2015 Atypical nevus of abdominal wall 12/31/2012 01/12/2017 Melanocytic nevi of upper extremity or shoulder 12/31/2012 01/12/2017 Dermatofibroma of shoulder 12/31/201209/07 Irritated//Inflamed Seborrheic Keratosis 012 09/07/2015 Melanocytic Nevi of trunk: J unctional and Intradermal Pigmented Nevi of lower chest, abdomen, and back 03/05/201201/12 Inguinal hernia 10/13/2010 02/23/2014 Bladder neck obstruction 08/05/2009 014 Melanocytic Nevi/ Benign Neoplasm of Skin of Daniel nk 06/18/2009 01/12/2017 NEVI FACE///Benign Neoplasm of Skin 06/18/2009 01/12/2017 Solar Lentigines 06/18/2009 09/07/2015 Actnic Damage//Sun-Damaged Skin 06/18/2009 09/07/2015 H/O BCC//// of Other Malignant Neoplasm 06/18/20 09 01/12/2017 Scar condition and fibrosis of skin 06/18/2009 09/07/2015 Routine general medical exam ination at a health care facility 02/01/2009 09/07/2015 Overview: Colon 12-01: internal hems with no polyps Malignant neoplasm of stomach, 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 07/29/2012 Overview: 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 Completed Chemo in 07-29 BPH W URINARY OBS/LUTS 08/15/2007 4 Elevated prostate specific antigen (PSA) 007 04/04/2012 Overview: PSA 10.8 in 07-04, 12 in 02-02: Malgieri rec repeat in 3 mo and consider Proscar Prostate in 01-31: bilateral biopsies with benign tissue Anemia, unspecified 09/09/2007 documented as of this encounter (statuses as of 10/02/2022) [facility] History of Past illness Narrative* Problem Noted Date Resolved Date 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 09/07/2015 Atypical nevus of abdominal wall 12/31/2012 01/12/2017 Melanocytic nevi of upper extremity or shoulder 12/31/2012 01/12/2017 Dermatofibroma of shoulder 12/31/201209/07 Irritated//Inflamed Seborrheic Keratosis 012 09/07/2015 Melanocytic Nevi of trunk: J unctional and Intradermal Pigmented Nevi of lower chest, abdomen, and back 03/05/201201/12 Inguinal hernia 10/13/2010 02/23/2014 Bladder neck obstruction 08/05/2009 014 Melanocytic Nevi/ Benign Neoplasm of Skin of Daniel nk 06/18/2009 01/12/2017 NEVI FACE///Benign Neoplasm of Skin 06/18/2009 01/12/2017 Solar Lentigines 06/18/2009 09/07/2015 Actnic Damage//Sun-Damaged Skin 06/18/2009 09/07/2015 H/O BCC//// of Other Malignant Neoplasm 06/18/20 09 01/12/2017 Scar condition and fibrosis of skin 06/18/2009 09/07/2015 Routine general medical exam ination at a health care facility 02/01/2009 09/07/2015 Overview: Colon 12-01: internal hems with no polyps Malignant neoplasm of stomach, 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 07/29/2012 Overview: 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 Completed Chemo in 07-29 BPH W URINARY OBS/LUTS 08/15/2007 4 Elevated prostate specific antigen (PSA) 007 04/04/2012 Overview: PSA 10.8 in 07-04, 12 in 02-02: Malgieri rec repeat in 3 mo and consider Proscar Prostate in 01-31: bilateral biopsies with benign tissue Anemia, unspecified 09/09/2007 documented as of this encounter (statuses as of 10/19/2022) [facility] History of Past illness Narrative* Problem Noted Date Resolved Date 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 09/07/2015 Atypical nevus of abdominal wall 12/31/2012 01/12/2017 Melanocytic nevi of upper extremity or shoulder 12/31/2012 01/12/2017 Dermatofibroma of shoulder 12/31/201209/07 Irritated//Inflamed Seborrheic Keratosis 012 09/07/2015 Melanocytic Nevi of trunk: J unctional and Intradermal Pigmented Nevi of lower chest, abdomen, and back 03/05/201201/12 Inguinal hernia 10/13/2010 02/23/2014 Bladder neck obstruction 08/05/2009 014 Melanocytic Nevi/ Benign Neoplasm of Skin of Daniel nk 06/18/2009 01/12/2017 NEVI FACE///Benign Neoplasm of Skin 06/18/2009 01/12/2017 Solar Lentigines 06/18/2009 09/07/2015 Actnic Damage//Sun-Damaged Skin 06/18/2009 09/07/2015 H/O BCC//// of Other Malignant Neoplasm 06/18/20 09 01/12/2017 Scar condition and fibrosis of skin 06/18/2009 09/07/2015 Routine general medical exam ination at a health care facility 02/01/2009 09/07/2015 Overview: Colon 12-01: internal hems with no polyps Malignant neoplasm of stomach, 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 07/29/2012 Overview: 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 Completed Chemo in 07-29 BPH W URINARY OBS/LUTS 08/15/2007 4 Elevated prostate specific antigen (PSA) 007 04/04/2012 Overview: PSA 10.8 in 07-04, 12 in 02-02: Malgieri rec repeat in 3 mo and consider Proscar Prostate in 01-31: bilateral biopsies with benign tissue Anemia, unspecified 09/09/2007 documented as of this encounter (statuses as of 10/30/2022) [facility] History of Past illness Narrative* Problem Noted Date Resolved Date 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 09/07/2015 Atypical nevus of abdominal wall 12/31/2012 01/12/2017 Melanocytic nevi of upper extremity or shoulder 12/31/2012 01/12/2017 Dermatofibroma of shoulder 12/31/201209/07 Irritated//Inflamed Seborrheic Keratosis 012 09/07/2015 Melanocytic Nevi of trunk: J unctional and Intradermal Pigmented Nevi of lower chest, abdomen, and back 03/05/201201/12 Inguinal hernia 10/13/2010 02/23/2014 Bladder neck obstruction 08/05/2009 014 Melanocytic Nevi/ Benign Neoplasm of Skin of Daniel nk 06/18/2009 01/12/2017 NEVI FACE///Benign Neoplasm of Skin 06/18/2009 01/12/2017 Solar Lentigines 06/18/2009 09/07/2015 Actnic Damage//Sun-Damaged Skin 06/18/2009 09/07/2015 H/O BCC//// of Other Malignant Neoplasm 06/18/20 09 01/12/2017 Scar condition and fibrosis of skin 06/18/2009 09/07/2015 Routine general medical exam ination at a health care facility 02/01/2009 09/07/2015 Overview: Colon 07: internal hems with no polyps Malignant neoplasm of stomach, 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 07/29/2012 Overview: 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 Completed Chemo in 07-29 BPH W URINARY OBS/LUTS 08/15/2007 4 Elevated prostate specific antigen (PSA) 007 04/04/2012 Overview: PSA 10.8 in 07-04, 12 in 02-02: Malgieri rec repeat in 3 mo and consider Proscar Prostate in 01-31: bilateral biopsies with benign tissue Anemia, unspecified 09/09/2007 documented as of this encounter (statuses as of 11/27/2022) [facility] History of Past illness Narrative* Problem Noted Date Resolved Date 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 09/07/2015 Atypical nevus of abdominal wall 12/31/2012 01/12/2017 Melanocytic nevi of upper extremity or shoulder 12/31/2012 01/12/2017 Dermatofibroma of shoulder 12/31/201209/07 Irritated//Inflamed Seborrheic Keratosis 012 09/07/2015 Melanocytic Nevi of trunk: J unctional and Intradermal Pigmented Nevi of lower chest, abdomen, and back 03/05/201201/12 Inguinal hernia 10/13/2010 02/23/2014 Bladder neck obstruction 08/05/2009 014 Melanocytic Nevi/ Benign Neoplasm of Skin of Daniel nk 06/18/2009 01/12/2017 NEVI FACE///Benign Neoplasm of Skin 06/18/2009 01/12/2017 Solar Lentigines 06/18/2009 09/07/2015 Actnic Damage//Sun-Damaged Skin 06/18/2009 09/07/2015 H/O BCC//// of Other Malignant Neoplasm 06/18/20 09 01/12/2017 Scar condition and fibrosis of skin 06/18/2009 09/07/2015 Routine general medical exam ination at a health care facility 02/01/2009 09/07/2015 Overview: Colon 12-01: internal hems with no polyps Malignant neoplasm of stomach, 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 07/29/2012 Overview: 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 Completed Chemo in 07-29 BPH W URINARY OBS/LUTS 08/15/2007 4 Elevated prostate specific antigen (PSA) 007 04/04/2012 Overview: PSA 10.8 in 07-04, 12 in 02-02: Malgieri rec repeat in 3 mo and consider Proscar Prostate in 01-31: bilateral biopsies with benign tissue Anemia, unspecified 09/09/2007 documented as of this encounter (statuses as of 12/25/2022) [facility] History of Past illness Narrative* Problem Noted Date Resolved Date 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 09/07/2015 Atypical nevus of abdominal wall 12/31/2012 01/12/2017 Melanocytic nevi of upper extremity or shoulder 12/31/2012 01/12/2017 Dermatofibroma of shoulder 12/31/201209/07 Irritated//Inflamed Seborrheic Keratosis 012 09/07/2015 Melanocytic Nevi of trunk: J unctional and Intradermal Pigmented Nevi of lower chest, abdomen, and back 03/05/201201/12 Inguinal hernia 10/13/2010 02/23/2014 Bladder neck obstruction 08/05/2009 014 Melanocytic Nevi/ Benign Neoplasm of Skin of Daniel nk 06/18/2009 01/12/2017 NEVI FACE///Benign Neoplasm of Skin 06/18/2009 01/12/2017 Solar Lentigines 06/18/2009 09/07/2015 Actnic Damage//Sun-Damaged Skin 06/18/2009 09/07/2015 H/O BCC//// of Other Malignant Neoplasm 06/18/20 09 01/12/2017 Scar condition and fibrosis of skin 06/18/2009 09/07/2015 Routine general medical exam ination at a health care facility 02/01/2009 09/07/2015 Overview: Colon 12-01: internal hems with no polyps Malignant neoplasm of stomach, 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 07/29/2012 Overview: 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 Completed Chemo in 07-29 BPH W URINARY OBS/LUTS 08/15/2007 4 Elevated prostate specific antigen (PSA) 007 04/04/2012 Overview: PSA 10.8 in 07-04, 12 in 02-02: Malgieri rec repeat in 3 mo and consider Proscar Prostate in 01-31: bilateral biopsies with benign tissue Anemia, unspecified 09/09/2007 documented as of this encounter (statuses as of 01/29/2023) [facility] History of Past illness Narrative* Problem Noted Date Resolved Date 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 09/07/2015 Atypical nevus of abdominal wall 12/31/2012 01/12/2017 Melanocytic nevi of upper extremity or shoulder 12/31/2012 01/12/2017 Dermatofibroma of shoulder 12/31/201209/07 Irritated//Inflamed Seborrheic Keratosis 012 09/07/2015 Melanocytic Nevi of trunk: J unctional and Intradermal Pigmented Nevi of lower chest, abdomen, and back 03/05/201201/12 Inguinal hernia 10/13/2010 02/23/2014 Bladder neck obstruction 08/05/2009 014 Melanocytic Nevi/ Benign Neoplasm of Skin of Daniel nk 06/18/2009 01/12/2017 NEVI FACE///Benign Neoplasm of Skin 06/18/2009 01/12/2017 Solar Lentigines 06/18/2009 09/07/2015 Actnic Damage//Sun-Damaged Skin 06/18/2009 09/07/2015 H/O BCC//// of Other Malignant Neoplasm 06/18/20 09 01/12/2017 Scar condition and fibrosis of skin 06/18/2009 09/07/2015 Routine general medical exam ination at a health care facility 02/01/2009 09/07/2015 Overview: Colon 12-01: internal hems with no polyps Malignant neoplasm of stomach, 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 07/29/2012 Overview: 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 Completed Chemo in 07-29 BPH W URINARY OBS/LUTS 08/15/2007 4 Elevated prostate specific antigen (PSA) 007 04/04/2012 Overview: PSA 10.8 in 07-04, 12 in 02-02: Malgieri rec repeat in 3 mo and consider Proscar Prostate in 01-31: bilateral biopsies with benign tissue Anemia, unspecified 09/09/2007 documented as of this encounter (statuses as of 02/09/2023) [facility] History of Past illness Narrative* Problem Noted Date Resolved Date 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 09/07/2015 Atypical nevus of abdominal wall 12/31/2012 01/12/2017 Melanocytic nevi of upper extremity or shoulder 12/31/2012 01/12/2017 Dermatofibroma of shoulder 12/31/201209/07 Irritated//Inflamed Seborrheic Keratosis 012 09/07/2015 Melanocytic Nevi of trunk: J unctional and Intradermal Pigmented Nevi of lower chest, abdomen, and back 03/05/201201/12 Inguinal hernia 10/13/2010 02/23/2014 Bladder neck obstruction 08/05/2009 014 Melanocytic Nevi/ Benign Neoplasm of Skin of Daniel nk 06/18/2009 01/12/2017 NEVI FACE///Benign Neoplasm of Skin 06/18/2009 01/12/2017 Solar Lentigines 06/18/2009 09/07/2015 Actnic Damage//Sun-Damaged Skin 06/18/2009 09/07/2015 H/O BCC//// of Other Malignant Neoplasm 06/18/20 09 01/12/2017 Scar condition and fibrosis of skin 06/18/2009 09/07/2015 Routine general medical exam ination at a health care facility 02/01/2009 09/07/2015 Overview: Colon 12-01: internal hems with no polyps Malignant neoplasm of stomach, 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 07/29/2012 Overview: 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 Completed Chemo in 07-29 BPH W URINARY OBS/LUTS 08/15/2007 4 Elevated prostate specific antigen (PSA) 007 04/04/2012 Overview: PSA 10.8 in 07-04, 12 in 02-02: Malgieri rec repeat in 3 mo and consider Proscar Prostate in 01-31: bilateral biopsies with benign tissue Anemia, unspecified 09/09/2007 documented as of this encounter (statuses as of 02/13/2023) [facility] of Past illness Narrative* Problem Noted Date Diagnosed Date Resolved Date 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 016 Atypical nevus of abdominal wall 12/31/2012 01/12/2017 Melanocytic nevi of upper ex tremity or shoulder 12/31/2012 01/12/2017 Dermatofibroma of shoulder 12/31/2012 0 09/07/2015 Irritated//Inflamed Seborrheic Keratosis 03/05/2012 09/07/2015 Melanocytic Nevi of trunk: J unctional and Intradermal Pigmented Nevi of lower chest, abdomen, and back 03/05/2012 01/12/2017 Inguinal hernia 10/13/2010 02/23/2014 Bladder neck obstruction 08/05/200911/2013 Melanocytic Nevi/ Benign Manav plasm of Skin of Trunk 06/18/2009 01/12/2017 NEVI FACE///Benign Neoplasm of Skin 06/18/2009 01/12/2017 Solar Lentigines 06/18/2009 09/07/2015 Actnic Damage//Sun-Damaged Skin 06/18/2009 09/07/2015 H/O BCC//// of Other Malignant Neoplasm 06/18/2009 01/12/2017 Scar condition and fibrosis of skin 06/18/2009 09/07/2015 Routine general medical exam ination at a health care facility 02/01/2009 09/07/2015 Overview: Colon 12-01: internal hems with no polyps Malignant neoplasm of stomac h, 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 07/29/2012 Overview: 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 Completed Chemo in 07-29 BPH W URINARY OBS/LUTS 08/15/200707/30 Elevated prostate specific antigen (PSA) 10/22/2006 04/04/2012 Overview: PSA 10.8 in 07-04, 12 in 02-02: Malgieri rec repeat in 3 mo and consider Proscar Prostate in 01-31: bilateral biopsies with benign tissue Anemia, unspecified 09/09/19 08 documented as of this encounter (statuses as of 04/02/2023) [facility] Past illness Narrative* Problem Noted Date Diagnosed Date Resolved Date 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 016 Atypical nevus of abdominal wall 12/31/2012 01/12/2017 Melanocytic nevi of upper ex tremity or shoulder 12/31/2012 01/12/2017 Dermatofibroma of shoulder 12/31/2012 0 09/07/2015 Irritated//Inflamed Seborrheic Keratosis 03/05/2012 09/07/2015 Melanocytic Nevi of trunk: J unctional and Intradermal Pigmented Nevi of lower chest, abdomen, and back 03/05/2012 01/12/2017 Inguinal hernia 10/13/2010 02/23/2014 Bladder neck obstruction 08/05/200911/2013 Melanocytic Nevi/ Benign Manav plasm of Skin of Trunk 06/18/2009 01/12/2017 NEVI FACE///Benign Neoplasm of Skin 06/18/2009 01/12/2017 Solar Lentigines 06/18/2009 09/07/2015 Actnic Damage//Sun-Damaged Skin 06/18/2009 09/07/2015 H/O BCC//// of Other Malignant Neoplasm 06/18/2009 01/12/2017 Scar condition and fibrosis of skin 06/18/2009 09/07/2015 Routine general medical exam ination at a health care facility 02/01/2009 09/07/2015 Overview: Colon 12-01: internal hems with no polyps Malignant neoplasm of stomac h, 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 07/29/2012 Overview: 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 Completed Chemo in 07-29 BPH W URINARY OBS/LUTS 08/15/200707/30 Elevated prostate specific antigen (PSA) 10/22/2006 04/04/2012 Overview: PSA 10.8 in 07-04, 12 in 02-02: Malgieri rec repeat in 3 mo and consider Proscar Prostate in 01-31: bilateral biopsies with benign tissue Anemia, unspecified 09/09/19 08 documented as of this encounter (statuses as of 05/25/2023) [facility] Past illness Narrative* Problem Noted Date Diagnosed Date Resolved Date 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 016 Atypical nevus of abdominal wall 12/31/2012 01/12/2017 Melanocytic nevi of upper ex tremity or shoulder 12/31/2012 01/12/2017 Dermatofibroma of shoulder 12/31/2012 0 09/07/2015 Irritated//Inflamed Seborrheic Keratosis 03/05/2012 09/07/2015 Melanocytic Nevi of trunk: J unctional and Intradermal Pigmented Nevi of lower chest, abdomen, and back 03/05/2012 01/12/2017 Inguinal hernia 10/13/2010 02/23/2014 Bladder neck obstruction 08/05/200911/2013 Melanocytic Nevi/ Benign Manav plasm of Skin of Trunk 06/18/2009 01/12/2017 NEVI FACE///Benign Neoplasm of Skin 06/18/2009 01/12/2017 Solar Lentigines 06/18/2009 09/07/2015 Actnic Damage//Sun-Damaged Skin 06/18/2009 09/07/2015 H/O BCC//// of Other Malignant Neoplasm 06/18/2009 01/12/2017 Scar condition and fibrosis of skin 06/18/2009 09/07/2015 Routine general medical exam ination at a health care facility 02/01/2009 09/07/2015 Overview: Colon 12-01: internal hems with no polyps Malignant neoplasm of stomac h, 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 07/29/2012 Overview: 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 Completed Chemo in 07-29 BPH W URINARY OBS/LUTS 08/15/200707/30 Elevated prostate specific antigen (PSA) 10/22/2006 04/04/2012 Overview: PSA 10.8 in 07-04, 12 in 02-02: Malgieri rec repeat in 3 mo and consider Proscar Prostate in 01-31: bilateral biopsies with benign tissue Anemia, unspecified 09/09/19 08 documented as of this encounter (statuses as of 07/03/2023) [facility] Narrative* Problem Noted Date Diagnosed Date Resolved Date 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 016 Atypical nevus of abdominal wall 12/31/2012 01/12/2017 Melanocytic nevi of upper ex tremity or shoulder 12/31/2012 01/12/2017 Dermatofibroma of shoulder 12/31/2012 0 09/07/2015 Irritated//Inflamed Seborrheic Keratosis 03/05/2012 09/07/2015 Melanocytic Nevi of trunk: J unctional and Intradermal Pigmented Nevi of lower chest, abdomen, and back 03/05/2012 01/12/2017 Inguinal hernia 10/13/2010 02/23/2014 Bladder neck obstruction 08/05/200911/2013 Melanocytic Nevi/ Benign Manav plasm of Skin of Trunk 06/18/2009 01/12/2017 NEVI FACE///Benign Neoplasm of Skin 06/18/2009 01/12/2017 Solar Lentigines 06/18/2009 09/07/2015 Actnic Damage//Sun-Damaged Skin 06/18/2009 09/07/2015 H/O BCC//// of Other Malignant Neoplasm 06/18/2009 01/12/2017 Scar condition and fibrosis of skin 06/18/2009 09/07/2015 Routine general medical exam ination at a health care facility 02/01/2009 09/07/2015 Overview: Colon 12-01: internal hems with no polyps Malignant neoplasm of stomac h, 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 07/29/2012 Overview: 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 Completed Chemo in 07-29 BPH W URINARY OBS/LUTS 08/15/200707/30 Elevated prostate specific antigen (PSA) 10/22/2006 04/04/2012 Overview: PSA 10.8 in 07-04, 12 in 02-02: Malgieri rec repeat in 3 mo and consider Proscar Prostate in 01-31: bilateral biopsies with benign tissue Anemia, unspecified 09/09/19 08 documented as of this encounter (statuses as of 10/01/2023) [facility]ative* Problem Noted Date Diagnosed Date Resolved Date 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 016 Atypical nevus of abdominal wall 12/31/2012 01/12/2017 Melanocytic nevi of upper ex tremity or shoulder 12/31/2012 01/12/2017 Dermatofibroma of shoulder 12/31/2012 0 09/07/2015 Irritated//Inflamed Seborrheic Keratosis 03/05/2012 09/07/2015 Melanocytic Nevi of trunk: J unctional and Intradermal Pigmented Nevi of lower chest, abdomen, and back 03/05/2012 01/12/2017 Inguinal hernia 10/13/2010 02/23/2014 Bladder neck obstruction 08/05/200911/2013 Melanocytic Nevi/ Benign Manav plasm of Skin of Trunk 06/18/2009 01/12/2017 NEVI FACE///Benign Neoplasm of Skin 06/18/2009 01/12/2017 Solar Lentigines 06/18/2009 09/07/2015 Actnic Damage//Sun-Damaged Skin 06/18/2009 09/07/2015 H/O BCC//// of Other Malignant Neoplasm 06/18/2009 01/12/2017 Scar condition and fibrosis of skin 06/18/2009 09/07/2015 Routine general medical exam ination at a health care facility 02/01/2009 09/07/2015 Overview: Colon 12-01: internal hems with no polyps Malignant neoplasm of stomac h, 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 07/29/2012 Overview: 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 Completed Chemo in 07-29 BPH W URINARY OBS/LUTS 08/15/200707/30 Elevated prostate specific antigen (PSA) 10/22/2006 04/04/2012 Overview: PSA 10.8 in 07-04, 12 in 02-02: Malgieri rec repeat in 3 mo and consider Proscar Prostate in 01-31: bilateral biopsies with benign tissue Anemia, unspecified 09/09/19 08 documented as of this encounter (statuses as of 10/29/2023) [facility] Narrative* Problem Noted Date Diagnosed Date Resolved Date 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 016 Atypical nevus of abdominal wall 12/31/2012 01/12/2017 Melanocytic nevi of upper ex tremity or shoulder 12/31/2012 01/12/2017 Dermatofibroma of shoulder 12/31/2012 0 09/07/2015 Irritated//Inflamed Seborrheic Keratosis 03/05/2012 09/07/2015 Melanocytic Nevi of trunk: J unctional and Intradermal Pigmented Nevi of lower chest, abdomen, and back 03/05/2012 01/12/2017 Inguinal hernia 10/13/2010 02/23/2014 Bladder neck obstruction 08/05/200911/2013 Melanocytic Nevi/ Benign Manav plasm of Skin of Trunk 06/18/2009 01/12/2017 NEVI FACE///Benign Neoplasm of Skin 06/18/2009 01/12/2017 Solar Lentigines 06/18/2009 09/07/2015 Actnic Damage//Sun-Damaged Skin 06/18/2009 09/07/2015 H/O BCC//// of Other Malignant Neoplasm 06/18/2009 01/12/2017 Scar condition and fibrosis of skin 06/18/2009 09/07/2015 Routine general medical exam ination at a health care facility 02/01/2009 09/07/2015 Overview: Colon 12-01: internal hems with no polyps Malignant neoplasm of stomac h, 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 07/29/2012 Overview: 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 Completed Chemo in 07-29 BPH W URINARY OBS/LUTS 08/15/200707/30 Elevated prostate specific antigen (PSA) 10/22/2006 04/04/2012 Overview: PSA 10.8 in 07-04, 12 in 02-02: Malgieri rec repeat in 3 mo and consider Proscar Prostate in 01-31: bilateral biopsies with benign tissue Anemia, unspecified 09/09/19 08 documented as of this encounter (statuses as of 11/26/2023) [facility] History of Past illness Narrative* Problem Noted Date Diagnosed Date Resolved Date 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 016 Atypical nevus of abdominal wall 12/31/2012 01/12/2017 Melanocytic nevi of upper ex tremity or shoulder 12/31/2012 01/12/2017 Dermatofibroma of shoulder 12/31/2012 0 09/07/2015 Irritated//Inflamed Seborrheic Keratosis 03/05/2012 09/07/2015 Melanocytic Nevi of trunk: J unctional and Intradermal Pigmented Nevi of lower chest, abdomen, and back 03/05/2012 01/12/2017 Inguinal hernia 10/13/2010 02/23/2014 Bladder neck obstruction 08/05/200911/2013 Melanocytic Nevi/ Benign Manav plasm of Skin of Trunk 06/18/2009 01/12/2017 NEVI FACE///Benign Neoplasm of Skin 06/18/2009 01/12/2017 Solar Lentigines 06/18/2009 09/07/2015 Actnic Damage//Sun-Damaged Skin 06/18/2009 09/07/2015 H/O BCC//// of Other Malignant Neoplasm 06/18/2009 01/12/2017 Scar condition and fibrosis of skin 06/18/2009 09/07/2015 Routine general medical exam ination at a health care facility 02/01/2009 09/07/2015 Overview: Colon 12-01: internal hems with no polyps Malignant neoplasm of stomac h, 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 07/29/2012 Overview: 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 Completed Chemo in 07-29 BPH W URINARY OBS/LUTS 08/15/200707/30 Elevated prostate specific antigen (PSA) 10/22/2006 04/04/2012 Overview: PSA 10.8 in 07-04, 12 in 02-02: Malgieri rec repeat in 3 mo and consider Proscar Prostate in 01-31: bilateral biopsies with benign tissue Anemia, unspecified 09/09/19 08 documented as of this encounter (statuses as of 10/03/2023) [facility] Pernicious anemia- Primary [facility] Diagnosis Pernicious anemia- Primary [facility] Diagnosis Medicare annual wellness visit, subsequent- Primary Routine general medical examination at a health care facility Essential hypertension Unspecified essential hypertension Wheezing Need for COVID-19 vaccine Pernicious anemia Venous insufficiency of both lower extremities [facility] Pernicious anemia- Primary [facility] Diagnosis Pernicious anemia- Primary [facility] Diagnosis Pernicious anemia- Primary [facility] noteNo assessment information availableWooVeterans Health Administration Work Phone: Evaluation note* Diagnosis Pernicious anemia- Primary Need for vaccination Need for prophylactic vaccination and inoculation against unspecified single disease Need for influenza vaccination Need for prophylactic vaccination and inoculation against influenza [facility] Diagnosis Essential hypertension- Primary Unspecified essential hypertension Pernicious anemia Venous insufficiency of both lower extremities Atrophy of muscle of left lower leg Left leg weakness Other musculoskeletal symptoms referable to limbs Raynaud's phenomenon without gangrene [facility] Diagnosis Pernicious anemia- Primary [facility] Diagnosis Pernicious anemia- Primary [facility] Diagnosis Pernicious anemia- Primary [facility] Diagnosis Essential hypertension- Primary Unspecified essential hypertension Vitamin D deficiency Unspecified vitamin D deficiency [facility] Diagnosis Medicare annual wellness visit, subsequent- Primary Routine general medical examination at a health care facility Pernicious anemia Essential hypertension Unspecified essential hypertension Vitamin D deficiency Unspecified vitamin D deficiency Numbness of left thumb Impacted cerumen of left ear Impacted cerumen Hyperglycemia Other abnormal glucose [facility] Diagnosis Pernicious anemia- Primary [facility] Diagnosis Leg wound, left, initial encounter- Primary [facility] Diagnosis Pernicious anemia- Primary [facility] Diagnosis Pernicious anemia- Primary [facility] Diagnosis Pernicious anemia- Primary [facility] Diagnosis Pernicious anemia- Primary Essential hypertension Unspecified essential hypertension Vitamin D deficiency Unspecified vitamin D deficiency Hyperglycemia Other abnormal glucose [facility] Diagnosis Medicare annual wellness visit, subsequent- Primary Routine general medical examination at a health care facility Essential hypertension Unspecified essential hypertension Pernicious anemia Venous insufficiency of both lower extremities Need for COVID-19 vaccine Vitamin D deficiency Unspecified vitamin D deficiency [facility] [place] [facility] Diagnosis Pernicious anemia- Primary [facility] [place] [facility]* Diagnosis Essential hypertension- Primary Unspecified essential hypertension documented in this encounter [facility] note* Diagnosis Pernicious anemia- Primary documented in this encounter [facility] note* Diagnosis Essential hypertension- Primary Unspecified essential hypertension documented in this encounter [facility] note* Diagnosis Acute cough- Primary Pleural effusion Unspecified pleural effusion Acute cough documented in this encounter [facility] note* Diagnosis COVID-19- Primary Pleural effusion Unspecified pleural effusion Abnormal blood chemistry Other abnormal blood chemistry Essential hypertension Unspecified essential hypertension Abnormal EKG Nonspecific abnormal electrocardiogram (ECG) (EKG) documented in this encounter [facility] note* Diagnosis Acute cough documented in this encounter [facility] note* Diagnosis Pernicious anemia- Primary documented in this encounter [facility] note* Diagnosis Essential hypertension Unspecified essential hypertension documented in this encounter [facility] note* Diagnosis Pleural effusion Unspecified pleural effusion documented in this encounter [facility] note* Diagnosis Essential hypertension- Primary Unspecified essential hypertension Need for influenza vaccination Need for prophylactic vaccination and inoculation against influenza Aneurysm of ascending aorta without rupture (HCC) documented in this encounter [facility] note* Diagnosis Wheezing documented in this encounter [facility] note* Diagnosis Pernicious anemia- Primary documented in this encounter [facility] note* Diagnosis Pernicious anemia- Primary documented in this encounter [facility] note* Diagnosis Essential hypertension- Primary Unspecified essential hypertension Encounter for immunization Need for other specified prophylactic vaccination against single bacterial disease Pernicious anemia Vitamin D deficiency Unspecified vitamin D deficiency documented in this encounter [facility] note* Diagnosis Pernicious anemia- Primary documented in this encounter [facility] note* Diagnosis Pernicious anemia- Primary documented in this encounter [facility] note* Diagnosis Viral URI with cough- Primary Acute upper respiratory infections of unspecified site documented in this encounter [facility] note* Diagnosis Vitamin B12 deficiency- Primary Other B-complex deficiencies documented in this encounter [facility] note* Diagnosis Vitamin B12 deficiency- Primary Other B-complex deficiencies documented in this encounter [facility] for referral (narrative)* Outpatient Procedure (Routine) - Authorized Specialty Diagnoses / Procedures Referred By Contac t [facility] Diagnoses Abnormal EKG Procedures ECHO ECHO TTHRC R-T 2D W/WOM-MODE COMPL SPEC&COLR D Piyush Rivera MD [address] [place] [address] [facility] [address] [place] [address] Referral ID Status Reason Start Date Expiration Date Visits Requested Visits Authorized [id number] Authorized Auto-Generat ed Referral 04/16/2024 04/16/2025 1 1 * Outpatient Procedure (Routine) - New Request Specialty Diagnoses / Procedures Referred By Contac t Referred To [facility] Diagnoses Pleural effusion Procedures ECG COMPLETE ECG ROUTINE ECG W/LEAST 12 LDS W/I&R Piyush Rivera MD [address] [place] [address] [facility] [address] [place] [address] Referral ID Status Reason Start Date Expiration Date Visits Requested Visits Authorized [id number] New Request Auto-Generat ed Referral 04/16/2024 04/16/2025 1 1 [facility] for referral (narrative)No reason for referral information availableWThe [facility] Work Phone: Summary Purpose Family History No Family History Records Found Relationship Condition Age at Onset Recorded Date/T roshan Unknown Family History?No pe rtinent history Unknown January 02, 2017 5:07pm Family History?No pe rtinent history Unknown August 15, 2017 7:12pm Advance Directives No Advanced Directives Records FoundDocuments on File Type Date Recorded Patient Patient Admitting Representative Expl anation Advance Directive(s) 04/21/2020 7:33 AM Advance Directive(s) 04/07/2020 4:19 PM Advance Directive Response Recorded Date/ Time Living Will Yes April 21 8 3:31pm Power of Senior 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 Application Developer Yes April 21 018 3:31pm Medications Administered Section Active Administered Medications - up to 3 most recent administrations Medication Order MAR Action Action Date Dose Rate Site cyanocobalamin 1,000 mcg injection 1,000 mcg, INTRAMUSCULAR, EVERY 1 MONTH, 12 doses, First dose on Sun10/03/21 at 0000, Last dose on Sun08/29/22 at 0000 Given 11/28/2021 9:15 AM EDT 1,000 mcg Deltoid, Left Given 10/31/2021 9:04 AM EST 1,000 mcg De ltoid, Right Active Administered Medications - up to 3 most recent administrations Medication Order MAR Action Action Date Dose Rate Site cyanocobalamin 1,000 mcg injection 1,000 mcg, INTRAMUSCULAR, EVERY 1 MONTH, 12 doses, First dose on Sun10/03/21 at 0000, Last dose on Sun08/29/22 at 0000 Given 12/26/2021 9:18 AM EDT 1,000 mcg Deltoid, Right Given 11/28/2021 9:15 AM EDT 1,000 mcg De ltoid, Left Given 10/31/2021 9:04 AM EST 1,000 mcg De ltoid, Right Active Administered Medications - up to 3 most recent administrations Medication Order MAR Action Action Date Dose Rate Site cyanocobalamin 1,000 mcg injection 1,000 mcg, INTRAMUSCULAR, EVERY 1 MONTH, 12 doses, First dose on Sun10/03/21 at 0000, Last dose on Sun08/29/22 at 0000 Given 01/30/2022 9:08 AM EDT 1,000 mcg Deltoid, Left Given 12/26/2021 9:18 AM EDT 1,000 mcg De ltoid, Right Given 11/28/2021 9:15 AM EDT 1,000 mcg De ltoid, Left Active Administered Medications - up to 3 most recent administrations Medication Order MAR Action Action Date Dose Rate Site cyanocobalamin 1,000 mcg injection 1,000 mcg, INTRAMUSCULAR, EVERY 1 MONTH, 12 doses, First dose on Sun10/03/21 at 0000, Last dose on Sun08/29/22 at 0000 Given 03/06/2022 9:40 AM EDT 1,000 mcg Deltoid, Right Given 01/30/2022 9:08 AM EDT 1,000 mcg De ltoid, Left Given 12/26/2021 9:18 AM EDT 1,000 mcg De ltoid, Right Active Administered Medications - up to 3 most recent administrations Medication Order MAR Action Action Date Dose Rate Site cyanocobalamin 1,000 mcg injection 1,000 mcg, INTRAMUSCULAR, EVERY 1 MONTH, 12 doses, First dose on Sun10/03/21 at 0000, Last dose on Sun08/29/22 at 0000 Given 04/03/2022 9:03 AM EDT 1,000 mcg Deltoid, Left Given 03/06/2022 9:40 AM EDT 1,000 mcg De ltoid, Right Given 01/30/2022 9:08 AM EDT 1,000 mcg De ltoid, Left Active Administered Medications - up to 3 most recent administrations Medication Order MAR Action Action Date Dose Rate Site cyanocobalamin 1,000 mcg injection 1,000 mcg, INTRAMUSCULAR, EVERY 1 MONTH, 12 doses, First dose on Sun10/03/21 at 0000, Last dose on Sun08/29/22 at 0000 Given 05/03/2022 9:04 AM EDT 1,000 mcg Deltoid, Right Given 04/03/2022 9:03 AM EDT 1,000 mcg De ltoid, Left Given 03/06/2022 9:40 AM EDT 1,000 mcg De ltoid, Right Active Administered Medications - up to 3 most recent administrations Medication Order MAR Action Action Date Dose Rate Site cyanocobalamin 1,000 mcg injection 1,000 mcg, INTRAMUSCULAR, EVERY 1 MONTH, 12 doses, First dose on Sun10/03/21 at 0000, Last dose on Sun08/29/22 at 0000 Given 06/05/2022 9:21 AM EDT 1,000 mcg Deltoid, Left Given 05/03/2022 9:04 AM EDT 1,000 mcg De ltoid, Right Given 04/03/2022 9:03 AM EDT 1,000 mcg De ltoid, Left Active Administered Medications - up to 3 most recent administrations Medication Order MAR Action Action Date Dose Rate Site cyanocobalamin 1,000 mcg injection 1,000 mcg, INTRAMUSCULAR, EVERY 1 MONTH, 12 doses, First dose on Sun10/03/21 at 0000, Last dose on Sun08/29/22 at 0000 Given 07/03/2022 9:08 AM EST 1,000 mcg Deltoid, Right Given 06/05/2022 9:21 AM EDT 1,000 mcg De ltoid, Left Given 05/03/2022 9:04 AM EDT 1,000 mcg De ltoid, Right Active Administered Medications - up to 3 most recent administrations Medication Order MAR Action Action Date Dose Rate Site cyanocobalamin 1,000 mcg injection 1,000 mcg, INTRAMUSCULAR, EVERY 1 MONTH, 12 doses, First dose on Sun10/03/21 at 0000, Last dose on Sun08/29/22 at 0000 Given 07/31/2022 9:39 AM EST 1,000 mcg Deltoid, Left Given 07/03/2022 9:08 AM EST 1,000 mcg De ltoid, Right Given 06/05/2022 9:21 AM EDT 1,000 mcg De ltoid, Left Active Administered Medications - up to 3 most recent administrations Medication Order MAR Action Action Date Dose Rate Site cyanocobalamin 1,000 mcg injection 1,000 mcg, INTRAMUSCULAR, EVERY 1 MONTH, First dose on Sun02/25/19 at 1330, Until Discontinued Given 09/04/2022 10:09 AM EST 1,000 mcg Deltoid, Right Given 09/06/2020 9:09 AM EST 1,000 mcg De ltoid, Right Given 08/02/2020 9:04 AM EST 1,000 mcg De ltoid, Left Active Administered Medications - up to 3 most recent administrations Medication Order MAR Action Action Date Dose Rate Site cyanocobalamin 1,000 mcg injection 1,000 mcg, INTRAMUSCULAR, EVERY 1 MONTH, First dose on Sun02/25/19 at 1330, Until Discontinued Given 10/02/2022 9:13 AM EST 1,000 mcg Deltoid, Right Given 09/04/2022 10:09 AM EST 1,000 mcg D eltoid, Right Given 09/06/2020 9:09 AM EST 1,000 mcg De ltoid, Right Active Administered Medications - up to 3 most recent administrations Medication Order MAR Action Action Date Dose Rate Site cyanocobalamin 1,000 mcg injection 1,000 mcg, INTRAMUSCULAR, EVERY 1 MONTH, First dose on Sun02/25/19 at 1330, Until Discontinued Given 10/30/2022 9:13 AM EST 1,000 mcg Deltoid, Left Given 10/02/2022 9:13 AM EST 1,000 mcg De ltoid, Right Given 09/04/2022 10:09 AM EST 1,000 mcg D eltoid, Right Active Administered Medications - up to 3 most recent administrations Medication Order MAR Action Action Date Dose Rate Site cyanocobalamin 1,000 mcg injection 1,000 mcg, INTRAMUSCULAR, EVERY 1 MONTH, First dose on Sun02/25/19 at 1330, Until Discontinued Given 11/27/2022 9:44 AM EDT 1,000 mcg Deltoid, Right Given 10/30/2022 9:13 AM EST 1,000 mcg De ltoid, Left Given 10/02/2022 9:13 AM EST 1,000 mcg De ltoid, Right Active Administered Medications - up to 3 most recent administrations Medication Order MAR Action Action Date Dose Rate Site cyanocobalamin 1,000 mcg injection 1,000 mcg, INTRAMUSCULAR, EVERY 1 MONTH, First dose on Sun02/25/19 at 1330, Until Discontinued Given 12/25/2022 9:30 AM EDT 1,000 mcg Deltoid, Left Given 11/27/2022 9:44 AM EDT 1,000 mcg De ltoid, Right Given 10/30/2022 9:13 AM EST 1,000 mcg De ltoid, Left Active Administered Medications - up to 3 most recent administrations Medication Order MAR Action Action Date Dose Rate Site cyanocobalamin 1,000 mcg injection 1,000 mcg, INTRAMUSCULAR, EVERY 1 MONTH, 12 doses, First dose on Sun10/02/22 at 0000, Last dose on Sun08/28/23 at 0000 Given 01/29/2023 9:28 AM EDT 1,000 mcg Deltoid, Right Active Administered Medications - up to 3 most recent administrations Medication Order MAR Action Action Date Dose Rate Site cyanocobalamin 1,000 mcg injection 1,000 mcg, INTRAMUSCULAR, EVERY 1 MONTH, 12 doses, First dose on Sun10/02/22 at 0000, Last dose on Sun08/28/23 at 0000 Given 04/02/2023 9:17 AM EDT 1,000 mcg Deltoid, Left Given 01/29/2023 9:28 AM EDT 1,000 mcg De ltoid, Right Active Administered Medications - up to 3 most recent administrations Medication Order MAR Action Action Date Dose Rate Site cyanocobalamin 1,000 mcg injection 1,000 mcg, INTRAMUSCULAR, EVERY 1 MONTH, 12 doses, First dose on Sun10/02/22 at 0000, Last dose on Sun08/28/23 at 0000 Given 07/02/2023 9:23 AM EST 1,000 mcg Deltoid, Left Given 2023 9:32 AM EDT 1,000 mcg De ltoid, Right Given 04/02/2023 9:17 AM EDT 1,000 mcg De ltoid, Left Chief Complaint and Reason for Visit Chief Complaint PSA Chief Complaint Admit Date R97.20 Elevated prostate specific antige n [PSA] December 25, 2024 10:48am [id number] January 08, 2025 9:58a m Additional Source Comments (unrecognized sect ion and content) No Status Records FoundNo Status Records FoundNo Status Records Found INFORMATION SOURCE (unrecogn ized section and content) DATE CREATED AUTHOR 01/31/2021 [facility] DATE CREATED AUTHOR AUTHOR'S ORGANIZ ATION 01/22/2025 [facility] DATE CREATED AUTHOR AUTHOR'S ORGANIZ ATION 02/02/2025 [facility] Source Comments (unrecognize d section and content) In the event this informatio n is protected by the Federal Confidentiality of Alcohol and Drug Abuse Patient Records regulations: The Federal rules restrict any use of the information to criminally investigate or prosecute any alcohol or drug abuse patient.[facility] the event this information is protected by the Federal Confidentiality of Alcohol and Drug Abuse Patient Records regulations: The Federal rules restrict any use of the information to criminally investigate or prosecute any alcohol or drug abuse patient.[facility] the event this information is protected by the Federal Confidentiality of Alcohol and Drug Abuse Patient Records regulations: The Federal rules restrict any use of the information to criminally investigate or prosecute any alcohol or drug abuse patient.[facility] Center[facility] the event this information is protected by the Federal Confidentiality of Alcohol and Drug Abuse Patient Records regulations: The Federal rules restrict any use of the information to criminally investigate or prosecute any alcohol or drug abuse patient.[facility] the event this information is protected by the Federal Confidentiality of Alcohol and Drug Abuse Patient Records regulations: The Federal rules restrict any use of the information to criminally investigate or prosecute any alcohol or drug abuse patient.[facility] the event this information is protected by the Federal Confidentiality of Alcohol and Drug Abuse Patient Records regulations: The Federal rules restrict any use of the information to criminally investigate or prosecute any alcohol or drug abuse patient.[facility] the event this information is protected by the Federal Confidentiality of Alcohol and Drug Abuse Patient Records regulations: The Federal rules restrict any use of the information to criminally investigate or prosecute any alcohol or drug abuse patient.[facility] the event this information is protected by the Federal Confidentiality of Alcohol and Drug Abuse Patient Records regulations: The Federal rules restrict any use of the information to criminally investigate or prosecute any alcohol or drug abuse patient.[facility] the event this information is protected by the Federal Confidentiality of Alcohol and Drug Abuse Patient Records regulations: The Federal rules restrict any use of the information to criminally investigate or prosecute any alcohol or drug abuse patient.[facility] CenterIn the event this information is protected by the Federal Confidentiality of Alcohol and Drug Abuse Patient Records regulations: The Federal rules restrict any use of the information to criminally investigate or prosecute any alcohol or drug abuse patient.[facility] the event this information is protected by the Federal Confidentiality of Alcohol and Drug Abuse Patient Records regulations: The Federal rules restrict any use of the information to criminally investigate or prosecute any alcohol or drug abuse patient.[facility] Center[facility] the event this information is protected by the Federal Confidentiality of Alcohol and Drug Abuse Patient Records regulations: The Federal rules restrict any use of the information to criminally investigate or prosecute any alcohol or drug abuse patient.[facility] Center[facility] the event this information is protected by the Federal Confidentiality of Alcohol and Drug Abuse Patient Records regulations: The Federal rules restrict any use of the information to criminally investigate or prosecute any alcohol or drug abuse patient.[facility] the event this information is protected by the Federal Confidentiality of Alcohol and Drug Abuse Patient Records regulations: The Federal rules restrict any use of the information to criminally investigate or prosecute any alcohol or drug abuse patient.[facility] CenterIn the event this information is protected by the Federal Confidentiality of Alcohol and Drug Abuse Patient Records regulations: The Federal rules restrict any use of the information to criminally investigate or prosecute any alcohol or drug abuse patient.[facility] CenterIn the event this information is protected by the Federal Confidentiality of Alcohol and Drug Abuse Patient Records regulations: The Federal rules restrict any use of the information to criminally investigate or prosecute any alcohol or drug abuse patient.[facility] Center[facility] the event this information is protected by the Federal Confidentiality of Alcohol and Drug Abuse Patient Records regulations: The Federal rules restrict any use of the information to criminally investigate or prosecute any alcohol or drug abuse patient.[facility] CenterIn the event this information is protected by the Federal Confidentiality of Alcohol and Drug Abuse Patient Records regulations: The Federal rules restrict any use of the information to criminally investigate or prosecute any alcohol or drug abuse patient.[facility] CenterIn the event this information is protected by the Federal Confidentiality of Alcohol and Drug Abuse Patient Records regulations: The Federal rules restrict any use of the information to criminally investigate or prosecute any alcohol or drug abuse patient.[facility] CenterIn the event this information is protected by the Federal Confidentiality of Alcohol and Drug Abuse Patient Records regulations: The Federal rules restrict any use of the information to criminally investigate or prosecute any alcohol or drug abuse patient.[facility] CenterIn the event this information is protected by the Federal Confidentiality of Alcohol and Drug Abuse Patient Records regulations: The Federal rules restrict any use of the information to criminally investigate or prosecute any alcohol or drug abuse patient.[facility] CenterIn the event this information is protected by the Federal Confidentiality of Alcohol and Drug Abuse Patient Records regulations: The Federal rules restrict any use of the information to criminally investigate or prosecute any alcohol or drug abuse patient.[facility] CenterIn the event this information is protected by the Federal Confidentiality of Alcohol and Drug Abuse Patient Records regulations: The Federal rules restrict any use of the information to criminally investigate or prosecute any alcohol or drug abuse patient.[facility] CenterIn the event this information is protected by the Federal Confidentiality of Alcohol and Drug Abuse Patient Records regulations: The Federal rules restrict any use of the information to criminally investigate or prosecute any alcohol or drug abuse patient.[facility] CenterIn the event this information is protected by the Federal Confidentiality of Alcohol and Drug Abuse Patient Records regulations: The Federal rules restrict any use of the information to criminally investigate or prosecute any alcohol or drug abuse patient.[facility] CenterIn the event this information is protected by the Federal Confidentiality of Alcohol and Drug Abuse Patient Records regulations: The Federal rules restrict any use of the information to criminally investigate or prosecute any alcohol or drug abuse patient.[facility] CenterIn the event this information is protected by the Federal Confidentiality of Alcohol and Drug Abuse Patient Records regulations: The Federal rules restrict any use of the information to criminally investigate or prosecute any alcohol or drug abuse patient.[facility] CenterIn the event this information is protected by the Federal Confidentiality of Alcohol and Drug Abuse Patient Records regulations: The Federal rules restrict any use of the information to criminally investigate or prosecute any alcohol or drug abuse patient.[facility] CenterIn the event this information is protected by the Federal Confidentiality of Alcohol and Drug Abuse Patient Records regulations: The Federal rules restrict any use of the information to criminally investigate or prosecute any alcohol or drug abuse patient.[facility] CenterIn the event this information is protected by the Federal Confidentiality of Alcohol and Drug Abuse Patient Records regulations: The Federal rules restrict any use of the information to criminally investigate or prosecute any alcohol or drug abuse patient.[facility] CenterIn the event this information is protected by the Federal Confidentiality of Alcohol and Drug Abuse Patient Records regulations: The Federal rules restrict any use of the information to criminally investigate or prosecute any alcohol or drug abuse patient.[facility] CenterIn the event this information is protected by the Federal Confidentiality of Alcohol and Drug Abuse Patient Records regulations: The Federal rules restrict any use of the information to criminally investigate or prosecute any alcohol or drug abuse patient.[facility] CenterIn the event this information is protected by the Federal Confidentiality of Alcohol and Drug Abuse Patient Records regulations: The Federal rules restrict any use of the information to criminally investigate or prosecute any alcohol or drug abuse patient.[facility] CenterIn the event this information is protected by the Federal Confidentiality of Alcohol and Drug Abuse Patient Records regulations: The Federal rules restrict any use of the information to criminally investigate or prosecute any alcohol or drug abuse patient.[facility] CenterIn the event this information is protected by the Federal Confidentiality of Alcohol and Drug Abuse Patient Records regulations: The Federal rules restrict any use of the information to criminally investigate or prosecute any alcohol or drug abuse patient.[facility] CenterIn the event this information is protected by the Federal Confidentiality of Alcohol and Drug Abuse Patient Records regulations: The Federal rules restrict any use of the information to criminally investigate or prosecute any alcohol or drug abuse patient.[facility] CenterIn the event this information is protected by the Federal Confidentiality of Alcohol and Drug Abuse Patient Records regulations: The Federal rules restrict any use of the information to criminally investigate or prosecute any alcohol or drug abuse patient.[facility] CenterIn the event this information is protected by the Federal Confidentiality of Alcohol and Drug Abuse Patient Records regulations: The Federal rules restrict any use of the information to criminally investigate or prosecute any alcohol or drug abuse patient.[facility] CenterIn the event this information is protected by the Federal Confidentiality of Alcohol and Drug Abuse Patient Records regulations: The Federal rules restrict any use of the information to criminally investigate or prosecute any alcohol or drug abuse patient.[facility] CenterIn the event this information is protected by the Federal Confidentiality of Alcohol and Drug Abuse Patient Records regulations: The Federal rules restrict any use of the information to criminally investigate or prosecute any alcohol or drug abuse patient.[facility] CenterIn the event this information is protected by the Federal Confidentiality of Alcohol and Drug Abuse Patient Records regulations: The Federal rules restrict any use of the information to criminally investigate or prosecute any alcohol or drug abuse patient.[facility] CenterIn the event this information is protected by the Federal Confidentiality of Alcohol and Drug Abuse Patient Records regulations: The Federal rules restrict any use of the information to criminally investigate or prosecute any alcohol or drug abuse patient.[facility] CenterIn the event this information is protected by the Federal Confidentiality of Alcohol and Drug Abuse Patient Records regulations: The Federal rules restrict any use of the information to criminally investigate or prosecute any alcohol or drug abuse patient.[facility] CenterIn the event this information is protected by the Federal Confidentiality of Alcohol and Drug Abuse Patient Records regulations: The Federal rules restrict any use of the information to criminally investigate or prosecute any alcohol or drug abuse patient.[facility] CenterIn the event this information is protected by the Federal Confidentiality of Alcohol and Drug Abuse Patient Records regulations: The Federal rules restrict any use of the information to criminally investigate or prosecute any alcohol or drug abuse patient.[facility] CenterIn the event this information is protected by the Federal Confidentiality of Alcohol and Drug Abuse Patient Records regulations: The Federal rules restrict any use of the information to criminally investigate or prosecute any alcohol or drug abuse patient.[facility] CenterIn the event this information is protected by the Federal Confidentiality of Alcohol and Drug Abuse Patient Records regulations: The Federal rules restrict any use of the information to criminally investigate or prosecute any alcohol or drug abuse patient.[facility] CenterIn the event this information is protected by the Federal Confidentiality of Alcohol and Drug Abuse Patient Records regulations: The Federal rules restrict any use of the information to criminally investigate or prosecute any alcohol or drug abuse patient.[facility] CenterIn the event this information is protected by the Federal Confidentiality of Alcohol and Drug Abuse Patient Records regulations: The Federal rules restrict any use of the information to criminally investigate or prosecute any alcohol or drug abuse patient.[facility] CenterIn the event this information is protected by the Federal Confidentiality of Alcohol and Drug Abuse Patient Records regulations: The Federal rules restrict any use of the information to criminally investigate or prosecute any alcohol or drug abuse patient.[facility] CenterIn the event this information is protected by the Federal Confidentiality of Alcohol and Drug Abuse Patient Records regulations: The Federal rules restrict any use of the information to criminally investigate or prosecute any alcohol or drug abuse patient.[facility] CenterIn the event this information is protected by the Federal Confidentiality of Alcohol and Drug Abuse Patient Records regulations: The Federal rules restrict any use of the information to criminally investigate or prosecute any alcohol or drug abuse patient.[facility] CenterIn the event this information is protected by the Federal Confidentiality of Alcohol and Drug Abuse Patient Records regulations: The Federal rules restrict any use of the information to criminally investigate or prosecute any alcohol or drug abuse patient.[facility] CenterIn the event this information is protected by the Federal Confidentiality of Alcohol and Drug Abuse Patient Records regulations: The Federal rules restrict any use of the information to criminally investigate or prosecute any alcohol or drug abuse patient.[facility] CenterIn the event this information is protected by the Federal Confidentiality of Alcohol and Drug Abuse Patient Records regulations: The Federal rules restrict any use of the information to criminally investigate or prosecute any alcohol or drug abuse patient.[facility] CenterIn the event this information is protected by the Federal Confidentiality of Alcohol and Drug Abuse Patient Records regulations: The Federal rules restrict any use of the information to criminally investigate or prosecute any alcohol or drug abuse patient.[facility] CenterIn the event this information is protected by the Federal Confidentiality of Alcohol and Drug Abuse Patient Records regulations: The Federal rules restrict any use of the information to criminally investigate or prosecute any alcohol or drug abuse patient.[facility] CenterIn the event this information is protected by the Federal Confidentiality of Alcohol and Drug Abuse Patient Records regulations: The Federal rules restrict any use of the information to criminally investigate or prosecute any alcohol or drug abuse patient.[facility] CenterIn the event this information is protected by the Federal Confidentiality of Alcohol and Drug Abuse Patient Records regulations: The Federal rules restrict any use of the information to criminally investigate or prosecute any alcohol or drug abuse patient.[facility] CenterIn the event this information is protected by the Federal Confidentiality of Alcohol and Drug Abuse Patient Records regulations: The Federal rules restrict any use of the information to criminally investigate or prosecute any alcohol or drug abuse patient.[facility]In the event this information is protected by the Federal Confidentiality of Alcohol and Drug Abuse Patient Records regulations: The Federal rules restrict any use of the information to criminally investigate or prosecute any alcohol or drug abuse patient.[facility] CenterIn the event this information is protected by the Federal Confidentiality of Alcohol and Drug Abuse Patient Records regulations: The Federal rules restrict any use of the information to criminally investigate or prosecute any alcohol or drug abuse patient.[facility] CenterIn the event this information is protected by the Federal Confidentiality of Alcohol and Drug Abuse Patient Records regulations: The Federal rules restrict any use of the information to criminally investigate or prosecute any alcohol or drug abuse patient.[facility] CenterIn the event this information is protected by the Federal Confidentiality of Alcohol and Drug Abuse Patient Records regulations: The Federal rules restrict any use of the information to criminally investigate or prosecute any alcohol or drug abuse patient.[facility] CenterIn the event this information is protected by the Federal Confidentiality of Alcohol and Drug Abuse Patient Records regulations: The Federal rules restrict any use of the information to criminally investigate or prosecute any alcohol or drug abuse patient.[facility] CenterIn the event this information is protected by the Federal Confidentiality of Alcohol and Drug Abuse Patient Records regulations: The Federal rules restrict any use of the information to criminally investigate or prosecute any alcohol or drug abuse patient.[facility] Reason for Visit (unrecogniz ed section and content) Reason Comments B-12 Injection Reason Onset Date Comments Refill Request 12/28/2021 Reason Comments Medicare Wellness Exam Reason Onset Date Comments Refill Request 02/20/2022 Reason Comments Patient Update Reason Onset Date Comments B-12 Injection Imm/Inj Immunizations 06/05/2022 Flu vaccination Reason Comments F/U 6 months Reason Comments Orders Reason Comments open sore on left leg X 4 days Reason Onset Date Comments Refill Request 01/30/2024 Reason Comments Medication Problem Reason Onset Date Comments Refill Request 02/20/2024 Reason Comments Patient Question Reason Comments Cough Cough x 1 week Reason Comments Results Reason Comments Urgent Care Follow-up Reason Comments blood pressure update Reason Comments Results chest xray results Reason Onset Date Comments Urgent Care follow-up Immunizations 05/19/2024 Flu vaccination Reason Onset Date Comments Refill Request 06/09/2024 Reason Comments Chest Congestion Cough x 4 days Reason Onset Date Comments Refill Request 12/25/2024 Change to local [facility] Teams (unrecognized sec tion and content) Bus And Trolley Dispatcher Relationship Specialty Start Date End Date Piyush Rivera MD [address] [place] [address] PCP - General Internal Medicine 09/08/13 Bus And Trolley Dispatcher Relationship Specialty Start Date End Date Piyush Rivera MD [address] [place] [address] PCP - General Internal Medicine 09/08/13 Bus And Trolley Dispatcher Relationship Specialty Start Date End Date Piyush Rivera MD [address] [place] [address] PCP - General Internal Medicine 09/08/13 Bus And Trolley Dispatcher Relationship Specialty Start Date End Date Piyush Rivera MD [address] [place] [address] PCP - General Internal Medicine 09/08/13 Bus And Trolley Dispatcher Relationship Specialty Start Date End Date Piyush Rivera MD [address] [place] [address] PCP - General Internal Medicine 09/08/13 Bus And Trolley Dispatcher Relationship Specialty Start Date End Date Piyush Rivera MD [address] [place] [address] PCP - General Internal Medicine 09/08/13 Bus And Trolley Dispatcher Relationship Specialty Start Date End Date Piyush Rivera MD [address] [place] [address] PCP - General Internal Medicine 09/08/13 Bus And Trolley Dispatcher Relationship Specialty Start Date End Date Piyush Rivera MD [address] [place] [address] PCP - General Internal Medicine 09/08/13 Bus And Trolley Dispatcher Relationship Specialty Start Date End Date Piyush Rivera MD [address] [place] [address] PCP - General Internal Medicine 09/08/13 Bus And Trolley Dispatcher Relationship Specialty Start Date End Date Piyush Rivera MD [address] [place] [address] PCP - General Internal Medicine 09/08/13 Bus And Trolley Dispatcher Relationship Specialty Start Date End Date Piyush Rivera MD [address] [place] [address] PCP - General Internal Medicine 09/08/13 Bus And Trolley Dispatcher Relationship Specialty Start Date End Date Piyush Rivera MD [address] [place] [address] PCP - General Internal Medicine 09/08/13 Bus And Trolley Dispatcher Relationship Specialty Start Date End Date Piyush Rivera MD [address] [place] [address] PCP - General Internal Medicine 09/08/13 Team Status: Active Member Role Status Dates Dr. Piyush Rivera MD Family Provider Active Dr. Piyush Rivera MD Primary Care Provider Active Team Status: Inactive Member Role Status Dates Dr. Piyush Rivera MD Primary Care Provider Active Dr. Torsten Gregg MD Attending Provider, Referr ing Provider Active Bus And Trolley Dispatcher Relationship Specialty Start Date End Date Piyush Rivera MD [address] [place] [address] PCP - General Internal Medicine 09/08/13 Bus And Trolley Dispatcher Relationship Specialty Start Date End Date Piyush Rivera MD [address] [place] [address] PCP - General Internal Medicine 09/08/13 Bus And Trolley Dispatcher Relationship Specialty Start Date End Date Piyush Rivera MD [address] [place] [address] PCP - General Internal Medicine 09/08/13 Bus And Trolley Dispatcher Relationship Specialty Start Date End Date Piyush Rivera MD [address] [place] [address] PCP - General Internal Medicine 09/08/13 Bus And Trolley Dispatcher Relationship Specialty Start Date End Date Piyush Rivera MD [address] [place] [address] PCP - General Internal Medicine 09/08/13 Bus And Trolley Dispatcher Relationship Specialty Start Date End Date Piyush Rivera MD [address] [place] [address] PCP - General Internal Medicine 09/08/13 Bus And Trolley Dispatcher Relationship Specialty Start Date End Date Piyush Rivera MD [address] [place] [address] PCP - General Internal Medicine 09/08/13 Bus And Trolley Dispatcher Relationship Specialty Start Date End Date Piyush Rivera MD [address] [place] [address] PCP - General Internal Medicine 09/08/13 Bus And Trolley Dispatcher Relationship Specialty Start Date End Date Piyush Rivera MD [address] [place] [address] PCP - General Internal Medicine 09/08/13 Bus And Trolley Dispatcher Relationship Specialty Start Date End Date Piyush Rivera MD [address] [place] [address] PCP - General Internal Medicine 09/08/13 Bus And Trolley Dispatcher Relationship Specialty Start Date End Date Piyush Rivera MD [address] [place] [address] PCP - General Internal Medicine 09/08/13 Bus And Trolley Dispatcher Relationship Specialty Start Date End Date Piyush Rivera MD [address] [place] [address] PCP - General Internal Medicine 09/08/13 Bus And Trolley Dispatcher Relationship Specialty Start Date End Date Piyush Rivera MD [address] [place] [address] PCP - General Internal Medicine 09/08/13 Bus And Trolley Dispatcher Relationship Specialty Start Date End Date Piyush Rivera MD [address] [place] [address] PCP - General Internal Medicine 09/08/13 Bus And Trolley Dispatcher Relationship Specialty Start Date End Date Piyush Rivera MD [address] [place] [address] PCP - General Internal Medicine 09/08/13 Bus And Trolley Dispatcher Relationship Specialty Start Date End Date Piyush Rivera MD [address] [place] [address] PCP - General Internal Medicine 09/08/13 [place], DAMAGE PREVENTION COORDINATOR.FILM CUTTER [address] [place] [address] Diagrammer Internal Medicine 08/04/24 Bus And Trolley Dispatcher Relationship Specialty Start Date End Date Piyush Rivera MD [address] [place] [address] PCP - General Internal Medicine 09/08/13 [place], DAMAGE PREVENTION COORDINATOR.FILM CUTTER [address] [place] [address] Diagrammer Internal Medicine 08/04/24 Bus And Trolley Dispatcher Relationship Specialty Start Date End Date Piyush Rivera MD [address] [place] [address] PCP - General Internal Medicine 09/08/13 [place], DAMAGE PREVENTION COORDINATOR.FILM CUTTER [address] [place] [address] Diagrammer Internal Medicine 08/04/24 Bus And Trolley Dispatcher Relationship Specialty Start Date End Date Piyush Rivera MD [address] [place] [address] PCP - General Internal Medicine 09/08/13 [place], DAMAGE PREVENTION COORDINATOR.FILM CUTTER [address] [facility] [place] [address] Diagrammer Internal Medicine 08/04/24 Bus And Trolley Dispatcher Relationship Specialty Start Date End Date Piyush Rivera MD [address] [place] [address] PCP - General Internal Medicine 09/08/13 [place]gal[place], DAMAGE PREVENTION COORDINATOR.FILM CUTTER [address] [place] [address] Diagrammer Internal Medicine 08/04/24 Team Status: Active Member Role Status Dates Dr. Piyush Rivera MD Primary Care Provider Active Team Status: Inactive Member Role Status Dates Dr. Piyush Rivera MD Primary Care Provider Active Start: October 28, 2024 End: October 28, 2024 Michelle Ely Attending Provider Active Start : October 28, 2024 End: October 28, 2024 Michelle Ely Referring Provider Active Start : October 28, 2024 End: October 28, 2024 Team Status: Active Member Role Status Dates Dr. Piyush Rivera MD Primary Care Provider Active Start: November 06, 2024 Dr. Torsten Gregg MD Attending Provider Active Start: November 06, 2024 Dr. Torsten Gregg MD Referring Provider Active Start: November 06, 2024 Team Status: Inactive Member Role Status Dates Dr. Piyush Rivera MD Primary Care Provider Active Start: November 06, 2024 End: November 06, 2024 Dr. Torsten Gregg MD Attending Provider Active Start: November 06, 2024 End: November 06, 2024 Dr. Torsten Gregg MD Referring Provider Active Start: November 06, 2024 End: November 06, 2024 Bus And Trolley Dispatcher Relationship Specialty Start Date End Date Piyush Rivera MD [address] [place] [address] PCP - General Internal Medicine 09/08/13 [place]gal[place], DAMAGE PREVENTION COORDINATOR.FILM CUTTER [address] [place] [address] Diagrammer Internal Medicine 08/04/24 Bus And Trolley Dispatcher Relationship Specialty Start Date End Date Piyush Rivera MD [address] [place] [address] PCP - General Internal Medicine 09/08/13 Negra Ugalde, DAMAGE PREVENTION COORDINATOR.FILM CUTTER [address] [place] [address] Diagrammer Internal Medicine 08/04/24 Bus And Trolley Dispatcher Relationship Specialty Start Date End Date Piyush Rivera MD [address] [place] [address] PCP - General Internal Medicine 09/08/13 Negra Ugal[place], DAMAGE PREVENTION COORDINATOR.FILM CUTTER [address] [place] [address] Diagrammer Internal Medicine 08/04/24 Team Status: Inactive Member Role Status Dates Dr. Piyush Rivera MD Primary Care Provider Active Start: December 25, 2024 End: December 25, 2024 Dr. Torsten Gregg MD Attending Provider Active Start: December 25, 2024 End: December 25, 2024 Dr. Torsten Gregg MD Referring Provider Active Start: December 25, 2024 End: December 25, 2024 Team Status: Inactive Member Role Status Dates Dr. Piyush Rivera MD Primary Care Provider Active Start: January 05, 2025 End: January 05, 2025 Dr. Torsten Gregg MD Attending Provider Active Start: January 05, 2025 End: January 05, 2025 Dr. Torsten Gregg MD Referring Provider Active Start: January 05, 2025 End: January 05, 2025 Team Status: Active Member Role Status Dates Dr. Piyush Rivera MD Primary Care Provider Active Start: January 08, 2025 Dr. Torsten Gregg MD Attending Provider Active Start: January 08, 2025 Dr. 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 [address] [place] [address] Diagrammer Internal Medicine 08/04/24 Goals (unrecognized section and content) Goals may be documented in a n alternate sectionGoals may be documented in an alternate sectionGoals may be documented in an alternate sectionGoals may be documented in an alternate sectionGoals may be documented in an alternate section Active Administered Medications - up to 3 most recent administrations Administered Medications (un recognized section and content) Medication Order MAR Action Action Date Dose Rate Site cyanocobalamin 1,000 mcg injection 1,000 mcg, INTRAMUSCULAR, EVERY 1 MONTH, 12 doses, First dose on Sun10/01/23 at 0000, Last dose on Sun08/26/24 at 0000 Given 10/01/2023 9:13 AM EST 1,000 mcg Deltoid, Right Active Administered Medications - up to 3 most recent administrations Medication Order MAR Action Action Date Dose Rate Site cyanocobalamin 1,000 mcg injection 1,000 mcg, INTRAMUSCULAR, EVERY 1 MONTH, 12 doses, First dose on Sun10/01/23 at 0000, Last dose on Sun08/26/24 at 0000 Given 10/29/2023 9:10 AM EST 1,000 mcg Deltoid, Left Given 10/01/2023 9:13 AM EST 1,000 mcg De ltoid, Right Active Administered Medications - up to 3 most recent administrations Medication Order MAR Action Action Date Dose Rate Site cyanocobalamin 1,000 mcg injection 1,000 mcg, INTRAMUSCULAR, EVERY 1 MONTH, 12 doses, First dose on Sun10/01/23 at 0000, Last dose on Sun08/26/24 at 0000 Given 11/26/2023 9:17 AM EDT 1,000 mcg Deltoid, Right Given 10/29/2023 9:10 AM EST 1,000 mcg De ltoid, Left Given 10/01/2023 9:13 AM EST 1,000 mcg De ltoid, Right FOR RECORDS PERTAINING TO PATIENTS WHO ARE OR HAVE BEEN ENROLLED IN A CHEMICAL DEPENDENCY/SUBSTANCEABUSE PROGRAM, SOME INFORMATION MAY BE OMITTED. This clinical summary was aggregated from multiple sources. Caution should be exercised in using it in the provision of clinical care. This summary normalizes information from multiple sources, and as a consequence, information in this document may materially change the coding, format and clinical context of patient data. In addition, data may be omitted in some cases. CLINICAL DECISIONS SHOULD BE BASED ON THE PRIMARY CLINICAL RECORDS. [facility] [employer] [facility]. provides no warranty or guarantee of the accuracy or completeness of information in this document.
[2025-02-15] MEDS: Lidocaine Jelly 2% 20 ML Syringe (URO-JET) 1 APPLIC TOPICAL (08:52)
[2025-02-15 09:05] LABS: Absolute Lymphocyte Count 1.09 X10^3/uL (0.83-4.51); Absolute Neutrophil Count 7.7 X10^3/uL (2.0-7.7); Basophil# 0.03 X10^3/uL; Basophil% 0.3 % (0-1); Eosinophil# 0.02 X10^3/uL; Eosinophils% 0.2 % (0-5); Hemoglobin 13.2 g/dL (13.0-16.5); Lymphocyte # 1.09 X10^3/ul (0.83-4.51); Lymphocyte % 11.3 % (19-41); Mean Corpuscular Hgb 28.9 pg (27.0-32.0); Mean Corpuscular Volume 87.5 fL (80-94); Mean Platelet Vol. 11.1 fl (6.2-12.0); Monocyte% 8.3 % (0-10); NRBC Flagged by Analyzer 0 % (0-5); Neutrophil # 7.69 X10^3/uL (2.7-7.7); Neutrophil % 79.4 % (47-70); Platelet Count 183 K/mm3 (150-450); RBC Distribution Width CV 14.4 % (11.6-14.6); RBC Distribution Width SD 45.8 fl (35.1-43.9); Red Blood Count 4.57 M/mm3 (4.6-6.2); White Blood Count 9.7 K/mm3 (4.4-11.0)
[2025-02-15] MEDS: 0.9% Normal Saline (500mL Bag) 500 ML 999 ML IV (09:20)
[2025-02-15 09:43] LABS: Anion Gap 11 (5-15); BUN 17 mg/dL (4-19); BUN/Creat Ratio 14.7 RATIO (10-20); Calcium,Total 9.1 mg/dL (7.6-11.0); Carbon Dioxide 25.1 mmol/L (21.0-32.0); Chloride 104 mmol/L (98-108); Creatinine, Serum 1.16 mg/dL (0.70-1.20); EST Glomerular Filtration Rate 66 (>60); Glucose 123 mg/dL (70-99); Potassium 3.9 mmol/L (3.3-5.1); Sodium Level 140 mmol/L (133-145)
[2025-02-15 10:12] VITALS: BP 146/78; PULSE 78; RESP 16; TEMP 37.1; O2SAT 99
[2025-02-15 10:17] LABS: Bacteria 0 SEEN /hpf (None Seen); Mucous, Urine 0 SEEN /hpf (<or=2+); Squamous Epithelial Cells - UA 0 SEEN /hpf (0-5)
[2025-02-15 10:18] LABS: Color, Urine Yellow (Yellow); Glucose, Dipstick Normal (Normal); Ketone-Dipstick 5 mg/dl (Negative); Leukocyte Esterase-Dipstick 25 /ul (Negative); Nitrite-Dipstick Negative (Negative); Occult Blood-Urine 250 /ul (Negative); Protein-Dipstick 15 mg/dl (Negative); Specific Gravity, Urine 1.015 (1.002-1.030); Urine Bilirubin Dipstick Negative (Negative); Urine Clarity Sl. Cloudy (Clear); Urine Urobilinogen Normal (Normal)
[2025-02-15 10:25] LABS: Red Blood Cells-Urine > 100 SEEN /hpf (0-5); White Blood Cells 0-5 SEEN /hpf (0-5)
== END 2025-02-15 10:14 | disposition home or self-care (01) ==
PROVIDERS: Emergency Provider Emergency Medicine; PCP Internal Medicine; Visit Provider Emergency Medicine
DX: N40.1 Benign prostatic hyperplasia with lower urinary tract symptoms (principal); R33.8 Other retention of urine; I10 Essential (primary) hypertension; Z79.82 Long term (current) use of aspirin; Z79.899 Other long term (current) drug therapy; Z87.891 Personal history of nicotine dependence
CPT/HCPCS: 51702; 80048; 81001; 85025; 87086; 96360; 99285; A4216

== ENCOUNTER 2025-02-25 07:19 | Observation (INO) | payer MEDICARE, SELFPAY ==
--- NOTE | 2025-02-19 18:44 | PAT.ANE_ITS ---
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 When Was Last Pacemaker Check QUESTION #4 FULL TEXT: You/Your Family Experience fever (hyperthermia) with Anesthesia Last Oral Intake Last Oral intake: Last Oral Intake NPO since Meds taken in AM with sips of water? 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 Female No 02/18/25 09:07 HX of Motion Sickness No 02/18/25 09:07 HX of N/V After Surgery No 02/18/25 09:07 Non-Smoker Yes 02/18/25 09:07 Duration of Surgery greater Yes 02/18/25 09:07 than 60 minutes Number of Risk Factors 2 02/18/25 09:07 PONV Score Moderate Risk 02/18/25 09:07 Height & Weight Height & Weight: Anesthesia: Height & Weight Height 5 ft 11 in 02/15/25 08:23 Respiratory Assessment Respiratory Assessment - cracking machine operator: Respiratory Tract Infection Hx - cracking machine operator Hx Respiratory Tract Infection No 02/18/25 09:07 STOP Sleep Apnea STOP Sleep Apnea - cracking machine operator: STOP Sleep Apnea - cracking machine operator Hx Hypertension Yes: CONTROLLED WITH MED 02/18/25 09:07 Hx Sleep Apnea No 02/18/25 09:07 CPAP No 08/16/17 04:35 BIPAP No 08/16/17 04:35 Do you snore loudly (louder Yes 02/18/25 09:07 than talking or can be heard Do you often feel tired/ No 02/18/25 09:07 fatigued/ sleepy during daytime? Has anyone observed you stop No 02/18/25 09:07 breathing during sleep? STOP Results Positive 02/18/25 09:07 QUESTION #5 FULL TEXT : Do you snore loudly (louder than talking or can be heard through closed doors)? 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 Specify any problems Hx of Preganancy in last 3 N/A 02/18/25 09:07 Months Nurse Filling Out Transfusion DSCHRIBER 02/18/25 09:07 & Questions: Date: 02/18/25 02/18/25 09:07 Time: 09:08 02/18/25 09:07 Patient unable to answer at this time (ie. confused, unrespo /Reproduction History /Reproductive History - cracking machine operator: /Reproductive Hx- cracking machine operator Hx Now No 02/18/25 09:07 Gestational Age (in weeks): EDC: Hx Hx Para Hx Section SAB No 02/18/25 09:07 [facility] Medical History (Updated 02/18/25 @ 09:17 by Yue Gilbert) Wears glasses Cancer Alcohol use Indwelling urethral catheter present Prostate disease Non-smoker Leg cramps History of edema History of echocardiogram History of stress test History of gastric cancer Hypertension Home Medications Medication Instructions Recorded Last Taken Type amlodipine 10 mg tablet 10 mg PO DAILY blood pressur e 12/15/16 08/15/17 History aspirin 81 mg chewable tablet 81 mg PO QHS heart 12/1502/14/25 History finasteride 5 mg tablet 5 mg PO DAILY prostate 12/1508/14/17 History folic acid 400 mcg tablet 0.4 mg PO DAILY supplement 0 12/15/16 08/14/17 History [id number] acid 0.4 1 ea PO DAILY supplement 0 12/15/16 08/14/17 History mg-lycopene 300 mcg-lutein 250 mcg tablet tamsulosin 0.4 mg capsule 0.4 mg PO QHS prostate 12/1508/14/17 History ergocalciferol (vitamin D2) 1,250 50,000 units PO MO s upplement 08/15/17 08/13/17 History mcg (50,000 unit) capsule ciprofloxacin HCl 500 mg tablet 500 mg PO BID #14 TABL ETS 02/15/25 Unknown Rx lisinopril 40 mg tablet 40 mg PO DAILY 02/15/25 Unkn own History mecobalamin (vitamin B12) 10,000 10,000 mcg IM QMONTH 02/18/25 Unknown History mcg solution for injection Allergy/AdvReac Type Severity Reaction Status Date / Time No Known Allergies Allergy Verified 02/18/25 09:03 Surgical History (Updated 02/18/25 @ 09:17 by Yue Gilbert) Hx of right cataract extraction Hx of left cataract extraction History of esophagogastroduodenoscopy (EGD) Hx of colonoscopy History of cystoscopy S/P laparoscopic cholecystectomy (~08/16/17) Social History (Updated 08/28/17 @ 13:[address] Ruperto Berrios MD) Smoking Status: Never smoker Audit: Pertinent Findings Pertinent Findings EKG Perinent findings: January 29, 2019. Normal sinus rhythm. Right bundle branch block. Left anterior fascicular block. No change from at least January 03, 2017. Recommendation Anesthesia Recommendation Anesthesia recommendation: OPTIMIZED for anesthesia
[2025-02-25] VITALS (16 sets, daily range): BP systolic 100–139; BP diastolic 60–78; PULSE 75–84; RESP 12–18; TEMP 36.2–37.2; O2SAT 92–100; BMI 22.6
--- OUTSIDE RECORDS SUMMARY | 2025-02-25 06:13 | XMS RPT_ITS | CCD ---
Author Organization [facility] Care Team Providers Care Delivery Professional Name Role Phone Miguel EDWARDS, Piyush Naidu Primary Care Provider Miguel EDWARDS, Piyush Naidu Primary Care Provider Negra Ugalde APRN.CNP Unavailable Miguel EDWARDS, Dr. Pickett Primary Care Provider Early[place]Michelle Attending Provider [phone] Michelle Ely Referring Provider Cristino EDWARDS, Dr. Torsten Mccord Attending Provider [phone] Cristino EDWARDS, Dr. Torsten Mccord Referring Provider [phone]( [phone] NEGRA UGALDE Referring Unavailable MIGUEL, PIYUSH Naidu Primary Care Unavailable MIGUEL, PIYUSH Naidu Attending Unavailable MIGUEL, PIYUSH Naidu Primary Care Unavailable MIGUEL, PIYUSH Naidu Referring Unavailable RIVERA, PIYUSH Naidu Primary Care Unavailable MIGUEL, PIYUSH Naidu Primary Care Unavailable RIVERA, PIYUSH Naidu Primary Care Unavailable RIVERA, PIYUSH Naidu Primary Care Unavailable RIVERA, PIYUSH Naidu Referring Unavailable RIVERA, PIYUSH Naidu Primary Care Unavailable RIVERA, PIYUSH Naidu Attending Unavailable MIGUEL, PIYUSH Naidu Primary Care Unavailable RIVERA, PIYUSH Naidu Primary Care Unavailable RIVERA, PIYUSH Naidu Primary Care Unavailable AMEYA AGUDELO Referring Unavailable RIVERA, PIYUSH Naidu Primary Care Unavailable RIVERA, PIYUSH Naidu Attending Unavailable RIVERA, PIYUSH Naidu Primary Care Unavailable RIVERA, PIYUSH Naidu Primary Care Unavailable NEGRA UGALDE Attending Unavailable MIGUEL, PIYUSH Naidu Primary Care Unavailable RIVERA, PIYUSH Naidu Primary Care Unavailable RIVERA, PIYUSH Naidu Referring Unavailable RIVERA, PYIUSH Naidu Primary Care Unavailable RIVERA, PIYUSH Naidu Primary Care Unavailable RIVERA, PIYUSH Naidu Primary Care Unavailable RIVERA, FROILAN Primary Care Unavailable RIVERA, FROILAN Referring Unavailable RIVERA, PIYUSH Naidu Primary Care Unavailable RIVERA, FROILAN Referring Unavailable RIVERA, PIYUSH Naidu Primary Care Unavailable RIVERA, PIYUSH Naidu Primary Care Unavailable AMEYA AGUDELO Referring Unavailable RIVERA, PIYUSH Naidu Primary Care Unavailable RIVERA, FROILAN Attending Unavailable RIVERA, FROILAN Primary Care Unavailable RIVERA, FROILAN Primary Care Unavailable Dr. Deshawn Mendez DO Emergency Provider Rivera, Piyush Primary Care Unavailable Cristino, Torsten Mccord Referring Unavailable Cristino, Torsten Mccord Attending Unavailable Rivera, Piyush Primary Care Unavailable Cristino, Torsten Mccord Referring Unavailable Cristino, Torsten Mccord Attending Unavailable Cristino, Torsten Mccord Referring Unavailable Rivera, Piyush Primary Care Unavailable Karly Castro Attending Unavailable Cristino, Torsten Mccord Referring Unavailable Cristino, Torsten Mccord Attending Unavailable Rivera, Piyush Primary Care Unavailable Deshawn Mendez Attending Unavailable Rivera, Piyush Primary Care Unavailable Cristino, Torsten Mccord Referring Unavailable Cristino, Torsten Mccord Attending Unavailable Rivera, Piyush Primary Care Unavailable [place], Michelle Referring Unavailable Rivera, Piyush Primary Care Unavailable [place], Michelle Attending Unavailable Cristino, Torsten Mccord Attending Unavailable Rivera, Piyush Primary Care Unavailable Cristino, Torsten Mccord Referring Unavailable Allergies Allergy Classification Reported Allergen(s) Allergy Type Date of Onset Reaction(s) Facility Bacitracin / Polymyxin B (1 source) Bacitracin / Polymyxin B Drug Allergy 07-15-2007 [facility] Work Phone: (20 sources) Bacitracin / Polymyxin B; Translations: [BACITRACIN-POLYM YXIN B] Drug Allergy 07-15-2007 [facility] Work Phone: Medications Current Medications Medication Drug Class(es) Dates Sig (Normalized) Sig (Original) amLODIPine 10 mg oral tablet (20 sources) Dihydropyridine Calcium Channel Paulina Start: 12-15-2016 End: 02-19-2025 take 1 tablet by mouth once daily amLODIPine (NORVASC) 10 mg tablet Take 1 tablet by mouth once daily. 90 tablet 3 02/19/2025 Active Comment on above: Take 1 tablet [...] on above: Take one(1) tablet d aily. ciprofloxacin 500 mg oral tablet (1 source) Quinolone Antimicrobial Start: take 1 tablet by mouth twice daily Ciprofloxacin Hcl 500 mg tablet Active 500 mg PO TWICE A DAY February 15, 2025 12:00am dextromethorphan hydrobromide 30 mg / pyrilamine maleate 30 mg oral tablet (7 sources) Uncompetitive T-jkfnlm-A-aspartate Receptor Antagonist, Sigma-1 Agonist Start: take 1 tablet by mouth every six hours as needed pyrilamine-dextrometh orphan (CAPRON DMT) 30-30 mg tab Take 1 tablet by mouth every 6 hours as needed. 30 tablet 11/25/2024 Active ergocalciferol 1.25 mg oral capsule (20 sources) Provitamin D2 Compound Start: End: take 1 capsule by mouth every week [...] 02/20/2022 Discontinued Start: 08-15-2017 Ergocalciferol (Vitamin D2) 84765 U capsule Active 92997 U PO MO August 15, 2017 1:00am Comment on above: Take 1 capsule by mo [facility] one time a week. finasteride 5 mg oral tablet (20 sources) 5-alpha Reductase Inhibitor Start: 07-30-2014 End: 02-25-2024 take 1 tablet by mouth once daily Finasteride 5 MG tablet Active 5 mg PO DAILY December 15, 2016 12:00am Comment on above: Take 1 tablet by jammie th once daily. folic acid 0.4 mg oral [...] 1 tablet by jammie th once daily. lisinopril 40 mg oral tablet [...] tablet 5 03/03/2024 04/07/2024 Discontinued (Dosage adjustment) Xrefuelz-Tpd-Vh-Lycopen-Lute in (2 sources) Start: 12-15-2016 Cwkoafha-Otj-Ij-Lycopen-Lute in Active 1 EACH PO DAILY December 15, 2016 12:00am Akxuffvr-Rml-Ir-Lycopen-Lute in 1 EACH tablet (4 sources) Start: 12-15-2016 Awzotgwp-Mcp-La-Lycopen-Lute in 1 EACH tablet Active 1 NMA [...] mg oral capsule (20 sources) alpha- Adrene marek valdez Start: 06-05-2016 End: 06-09-2024 take 1 capsul e by mouth once daily at bedtim e tamsulosin (FLOMAX) 0.4 mg Take 1 capsule by mouth daily at bedtime. 90 capsule 4 06/10/2024 Active Comment on above: Take 1 capsule by mo uth daily at bedtime. Vitamin B Complex (2 sources) Start: 12-15-2016 Vitamin B Complex Active 1 E ACH PO EVERY MONTH December 15, 2016 12:00am Vitamin B Complex 1 EACH capsule (4 sources) Start: 12-15-2016 Vitamin B Complex 1 EACH capsule Active 1 NMA PO EVERY MONTH December 15, 2016 12:00am vitamin b12 1 mg/ml injectab le solution (20 sources) Vitami n B12 Start: 10-13-2024 End: 09-13-2025 cyanocobalamin 1,000 mcg injection Start: 10-13-2024 End: 09-13-2025 1,000 mcg, INTRAMUSCULAR, EV PEDRO 4 WEEKS, 12 doses, First dose on Sun10/13/24 at 0000, Last dose on Sun08/17/25 at 0000 Start: 10-01-2023 End: 09-24-2024 1,000 mcg, INTRAMUSCULAR, EV PEDRO 1 MONTH, 12 doses, First dose on Sun10/01/23 at 0000, Last dose on Sun08/26/24 at 0000 Start: 10-01-2023 End: 09-24-2024 cyanocobalamin 1,000 mcg inj ection Start: 02-25-2019 End: 09-26-2023 cyanocobalamin 1,000 mcg inj ection Completed/Discontinued Medications Medication Drug Class(es) Dates Sig (Normalized) Sig (Original) acetaminophen 325 mg / oxyCODONE hydrochloride 5 mg oral tablet (6 sources) Opioid Agonist Start: 04-21-2018 End: 02-15-2025 Oxycodone-Acetamino phen 1 TABLET tablet Discontinued 1 {tbl} PO EVERY 6 HOURS NEEDED as needed for Pain 07 29April 21, 2018 12:00am February 15, 2025 8:58am Start: 04-21-2018 take 1 tablet by jammie th every six hours as needed Oxycodone-Acetaminophen Active 1 TABLET PO EVERY 6 HOURS NEEDED 07 29April 21, 2018 12:00am Problems Active Problems Problem Classification Problem Date Documented Date Episodic/Chronic Aortic; peripheral; and visceral artery aneurysms (20 sources) Aneurysm of ascending aorta; Translations: [Aneurysm of ascending aorta without rupture] Onset: 04-30-2024 04-30-2024 Chronic Biliary tract disease (6 sources) Acute cholecystitis due to biliary calculus; Translations: [Calculus of gallbladder with acute cholecystitis without obstruction] 08-24-2017 Episodic Calculus of urinary tract (6 sources) History of calculus of kidney; Translations: [Personal history of urinary calculi] 08-24-2017 Episodic Cancer of stomach (6 sources) History of malignant neoplasm of stomach; Translations: [Personal history of other malignant neoplasm of stomach] 08-24-2017 Episodic Comment on above: Status post total ga strectomy. Essential hypertension (20 sources) Essential hypertension; Translations: [Essential (primary) hypertension] Onset: 03-05-2009 09-07-2015 Chronic Genitourinary symptoms and ill-defined conditions (2 sources) Retention of urine; Translations: [Retention of urine, unspecified] Onset: 02-20-2025 02-15-2025 Episodic Hyperplasia of prostate (20 sources) Benign prostatic [...] Test Name Value Interpretation Reference Range Facility MR/PAT.CLEO 02-19-2025 /PAT.[facility] Medical Records Department [address] [place] [address] PAT - Anesthesia 02/19/25 1844 MR#: [id number] Acct: [id number] Name: HERIBERTO PEÑALOZA Rep #: [id number] : 1950 74 From: Facundo Ortez MD PCP: Dr. 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 When Was Last Pacemaker Check QUESTION #4 FULL TEXT: You/Your Family Experience fever (hyperthermia) with Anesthesia Last Oral Intake Last Oral intake: Last Oral Intake NPO since Meds taken in AM with sips of water? Meds patient instructed to take am of surgery PONV PONV - senior sales consultant: PONV - senior sales consultant Female No 02/18/25 09:07 HX of Motion Sickness No 02/18/25 09:07 HX of N/V After Surgery No 02/18/25 09:07 Non-Smoker Yes 02/18/25 09:07 Duration of Surgery greater Yes 02/18/25 09:07 than 60 minutes Number of Risk Factors 2 02/18/25 09:07 PONV Score Moderate Risk 02/18/25 09:07 Height Weight Height Weight: Anesthesia: Height Weight Height 5 ft 11 in 02/15/25 08:23 Respiratory Assessment Respiratory Assessment - senior sales consultant: Respiratory Tract Infection Hx - senior sales consultant Hx Respiratory Tract Infection No 02/18/25 09:07 STOP Sleep Apnea STOP Sleep Apnea - senior sales consultant: STOP Sleep Apnea - senior sales consultant Hx Hypertension Yes: CONTROLLED WITH MED 02/18/25 09:07 Hx Sleep Apnea No 02/18/25 09:07 CPAP No 08/16/17 04:35 BIPAP No 08/16/17 04:35 Do you snore loudly (louder Yes 02/18/25 09:07 than talking or can be heard Do you often feel tired/ No 02/18/25 09:07 fatigued/ sleepy during daytime? Has anyone observed you stop No 02/18/25 09:07 breathing during sleep? STOP Results Positive 02/18/25 09:07 QUESTION #5 FULL TEXT : Do you snore loudly (louder than talking or can be heard through closed doors)? 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 Specify any problems Hx of Preganancy in last 3 N/A 02/18/25 09:07 Months Nurse Filling Out Transfusion DSCHRIBER 02/18/25 09:07 Questions: Date: 02/18/25 02/18/25 09:07 Time: 09:08 02/18/25 09:07 Patient unable to answer at this time (ie. confused, unrespo /Reproduction History /Reproductive History - senior sales consultant: /Reproductive Hx- senior sales consultant Hx Now No 02/18/25 09:07 Gestational Age (in weeks): EDC: Hx Hx Para Hx Section SAB No 02/18/25 09:07 [facility] Medical History (Updated 02/18/25 @ 09:17 by Yue Gilbert) Wears glasses Cancer Alcohol use Indwelling urethral catheter present Prostate disease Non-smoker Leg cramps History of edema History of echocardiogram History of stress test History of gastric cancer Hypertension Home Medications ???Medication ???Instructions ???Recorded ???Last Taken ???Type amlodipine 10 mg tablet 10 mg PO DAILY blood pressure 11/2608/15/17 History aspirin 81 mg chewable tablet 81 mg PO QHS heart 12/15/16 History finasteride 5 mg tablet 5 mg PO DAILY prostate 12/15/16 History folic acid 400 mcg tablet 0.4 mg PO DAILY supplement 7 08/14/17 History kyvnnzfc-ced-nuvhs acid 0.4 1 ea PO DAILY supplement 12/15/16 08/14/17 History mg-lycopene 300 mcg-lutein 250 mcg tablet tamsulosin 0.4 mg capsule 0.4 mg PO QHS prostate 04 (more content not included)... Normal [facility] Urine Cultureon 02-16-2025 U[facility] Culture exhibits no growth. Normal [facility] Comment on above: Performed By: #### L 400.0001, M100.2200 #### [facility] Laboratory [place], [address] Absolute lymphocyte countOrd ered By: Deshawn Mendez on 02-15-2025 Lymphocytes Auto (Unsp spec) [#/Vol] 1.09 10*3/uL 0.83-4.51 [facility] Absolute neutrophil countOrd ered By: Deshawn Mendez on 02-15-2025 Neutrophils (Bld) [#/Vol] 7.7 10*3/uL 2.0-7.7 [facility] Anion gap in Serum or Plasma Ordered By: Deshawn Mendez on 02-15-2025 Anion gap [Moles/Vol] 11 mmol/L 5-15 [facility] Automated lymphocyte count a s percentage of total leukocytesOrdered By: Deshawn Mendez on 02-15-2025 Lymphocytes/100 WBC Auto (Unsp spec) 11.3 % Low - [facility] BUN/creatinine ratioOrdered By: Deshawn Mendez on 02-15-2025 Urea nitrogen/Creatinine [Mass ratio] 14.7 mg/mg - [facility] Basic Metabolic Profile (BMP )on 02-15-2025 BUN/CRE 14.7 RATIO Normal 06-15 [facility] Comment on above: Performed By: #### L 500.2500, L100.0100 ####[facility] [address] [place], [address] Calcium [Mass/Vol] 9.1 mg/dL Normal 7.6-11.0 [facility] Comment on above: Performed By: #### L 500.2500, L100.0100 ####[facility] [address] [place], [address] Chloride [Moles/Vol] 104 mmol/L Normal 98-108 [facility] Comment on above: Performed By: #### L 500.2500, L100.0100 ####[facility] [address] [place], [address] CO2 [Moles/Vol] 25.1 mmol/L Normal 21.0-32.0 [facility] Comment on above: Performed By: #### L 500.2500, L100.0100 ####[facility] [address] [place], [address] Creatinine [Mass/Vol] 1.16 mg/dL Normal 0.70-1.20 [facility] Comment on above: Performed By: #### L 500.2500, L100.0100 ####[facility] [address] [place], [address] ECRCL 59.50 ml/min Normal 50-250 [facility] Comment on above: Performed By: #### L 500.2500, L100.0100 ####[facility] [address] [place], [address] GAP 11 Normal 5-15 [facility] Comment on above: Performed By: #### L 500.2500, L100.0100 ####[facility] [address] [place], [address] GFR/1.73 sq M.predicted among non-blacks MDRD (S/P/Bld) [Vol rate/Area] 66 mL/min/{1.73_m2} Normal >60 [facility] Comment on above: Result Comment: mL/m in/1.73m2 CKD-EPI Creatinine Equation (2020) Performed By: #### L 500.2500, L100.0100 ####[facility] [address] [place], [address] Glucose [Mass/Vol] 123 mg/dL High 70-99 [facility] Comment on above: Performed By: #### L 500.2500, L100.0100 ####[facility] [address] [place], [address] Potassium [Moles/Vol] 3.9 mmol/L Normal 3.3-5.1 [facility] Comment on above: Performed By: #### L 500.2500, L100.0100 ####[facility] [address] [place], [address] Sodium [Moles/Vol] 140 mmol/L Normal 133-145 [facility] Comment on above: Performed By: #### L 500.2500, L100.0100 ####[facility] [address] [place], [address] Urea nitrogen [Mass/Vol] 17 mg/dL Normal 4-19 [facility] Comment on above: Performed By: #### L 500.2500, L100.0100 ####[facility] [address] [place], [address] Basophil percentageOrdered B y: Deshawn Vanessa on 02-15-2024 Basophils/100 WBC (Bld) 0.3 % 0-1 [facility] CBC W/Diff, Automatedon 01-26 Absolute Lymph 1.09 X10 3/uL Normal 0.83-4.51 [facility] Comment on above: Performed By: #### L 500.2500, L100.0100 #### [facility] Laboratory [address] [place], [address] Absolute Neut 7.7 X10 3/uL Normal 2.0-7.7 [facility] Comment on above: Performed By: #### L 500.2500, L100.0100 #### [facility] [address] [place], [address] Basophils/100 WBC (Bld) 0.3 % Normal 0-1 [facility] Comment on above: Performed By: #### L 500.2500, L100.0100 #### [facility] [address] [place], [address] Eosinophils/100 WBC (Bld) 0.2 % Normal 0-5 [facility] Comment on above: Performed By: #### L 500.2500, L100.0100 #### [facility] [address] [place], [address] Erythrocyte distribution width (RBC) [Ratio] 14.4 % Normal 11.6-14.6 [facility] Comment on above: Performed By: #### L 500.2500, L100.0100 #### [facility] [address] [place], [address] Hematocrit (Bld) [Volume fraction] 40.0 % Normal 40-54 [facility] Comment on above: Performed By: #### L 500.2500, L100.0100 #### [facility] [address] [place], [address] Hemoglobin (Bld) [Mass/Vol] 13.2 g/dL Normal 13.0-16.5 [facility] Comment on above: Performed By: #### L 500.2500, L100.0100 #### [facility] [address] [place], [address] IG% 0.500 Normal 0.0-0.9 [facility] Comment on above: Result Comment: IG% - Immature Granulocytes (promyelocytes, myelocytes and metamyelocytes) > 1% indicates that a LEFT SHIFT is Present. Performed By: #### L 500.2500, L100.0100 #### [facility] [address] [place], [address] Lymphocytes/100 WBC (Bld) 11.3 % Low 19-41 [facility] Comment on above: Performed By: #### L 500.2500, L100.0100 #### [facility] [address] [place], [address] MCH (RBC) [Entitic mass] 28.9 pg Normal 27.0-32.0 [facility] Comment on above: Performed By: #### L 500.2500, L100.0100 #### [facility] [address] [place], [address] MCHC (RBC) [Mass/Vol] 33.0 g/dL Normal 32-36 [facility] Comment on above: Performed By: #### L 500.2500, L100.0100 #### [facility] [address] [place], [address] MCV (RBC) [Entitic vol] 87.5 fL Normal 80-94 [facility] Comment on above: Performed By: #### L 500.2500, L100.0100 #### [facility] [address] [place], [address] Monocytes/100 WBC (Bld) 8.3 % Normal 0-10 [facility] Comment on above: Performed By: #### L 500.2500, L100.0100 #### [facility] [address] [place], [address] Neutrophils/100 WBC (Bld) 79.4 % High 47-70 [facility] Comment on above: Performed By: #### L 500.2500, L100.0100 #### [facility] [address] [place], [address] Nucleated RBC (Bld) [#/Vol] 0 10*3/uL Normal 0-5 [facility] Comment on above: Performed By: #### L 500.2500, L100.0100 #### [facility] [address] [place], [address] Platelet mean volume (Bld) [Entitic vol] 11.1 fL Normal 6.2-12.0 [facility] Comment on above: Performed By: #### L 500.2500, L100.0100 #### [facility] [address] [place], [address] Platelets (Bld) [#/Vol] 183 10*3/uL Normal 150-450 [facility] Comment on above: Performed By: #### L 500.2500, L100.0100 #### [facility] [address] [place], [address] RBC (Bld) [#/Vol] 4.57 10*6/uL Low 4.6-6.2 [facility] Comment on above: Performed By: #### L 500.2500, L100.0100 #### [facility] [address] [place], [address] RDW SD 45.8 fl High 35.1-43.9 [facility] Comment on above: Performed By: #### L 500.2500, L100.0100 #### [facility] [address] [place], [address] WBC (Bld) [#/Vol] 9.7 10*3/uL Normal 4.4-11.0 [facility] Comment on above: Performed By: #### L 500.2500, L100.0100 #### [facility] [address] [place], [address] Carbon dioxide, total [Moles /volume] in Central venous bloodOrdered By: Deshawn Mendez on 02-15-2025 CO2 [Moles/Vol] 25.1 mmol/L 21.0-32.0 [facility] Chloride assayOrdered By: Asif Mendez on 02-15-2025 Chloride [Moles/Vol] 104 mmol/L 98-108 [facility] Emergency Department Summary on 02-15-2025 Emergency Department Summary [facility] Medical Records Department [address] [place] [address] Emergency Department Summary 02/15/25 MR#: [id number] Acct: [id number] Name: HERIBERTO PEÑALOZA Ynes Hurtado Rep #: [id number] : 1950 74 From: Deshawn Mendez DO PCP: Dr. Piyush Rivera MD Status:REG ER Location: ED HPI History of Present Illness Chief Complaint: Complaint [facility] Medical History (Updated 02/15/25 @ 09:[address] Deshawn Mendez DO) History of gastric cancer History of kidney stones Hypertension Acute calculous cholecystitis Home Medications ???Medication ???Instructions ???Recorded ???Last Taken ???Type amlodipine 10 mg tablet 10 mg PO DAILY blood pressure 11/2608/15/17 History aspirin 81 mg chewable tablet 81 mg PO QHS heart 12/15/16 History finasteride 5 mg tablet 5 mg PO DAILY prostate 12/15/16 History folic acid 400 mcg tablet 0.4 mg PO DAILY supplement 7 08/14/17 History clyawfdu-pep-auteu acid 0.4 1 ea PO DAILY supplement 12/15/16 08/14/17 History mg-lycopene 300 mcg-lutein 250 mcg tablet tamsulosin 0.4 mg capsule 0.4 mg PO QHS prostate 12/15/16 History vitamin B complex 1 ea PO QMONTH 12/15/16 07/13/17 H istory ergocalciferol (vitamin D2) 1,250 50,000 units PO MO supplement 08/13/17 History mcg (50,000 unit) capsule ciprofloxacin HCl 500 mg tablet 500 mg PO BID #14 TABLETS 02/15/25 Unknown Rx lisinopril 40 mg tablet 40 mg PO DAILY 02/15/25 Unknown Hi story Allergy/AdvReac Type Severity Reaction Status Date / Time No Known Allergies Allergy Verified 02/15/25 08:23 Surgical History (Updated 08/24/17 @ 08:48 by Luna Conde) S/P laparoscopic cholecystectomy ( 08/16/17) Social History (Updated 08/28/17 @ 13:[address] Ruperto Berrios MD) Smoking Status: Former smoker EXAM Physical Exam Const Vital Signs: 02/15/25 08:23 Temperature 97.8 F Temperature Source Oral Pulse Rate 88 Respiratory Rate 16 Blood Pressure 154/81 H Blood Pressure Mean 105 Pulse Ox 99 Oxygen Delivery Method Room Air MDM MDM MDM Narrative Medical decision making narrative: HISTORY OF PRESENT ILLNESS: Chief complaint: Urinary retention 74-year-old male history of hypertension, BPH on tamsulosin and finasteride presents with inability urinate. He states this began []. He endorses dribbling a few drops. Endorses constant pressure and urge to urinate. Notes lower abdominal pain as well. REVIEW OF SYSTEMS: Pertinent positives: Urinary retention Pertinent negatives: As per HPI PHYSICAL EXAM: Nursing triage notes reviewed, Vital signs reviewed Constitutional: please see [facility] HENT: MMM Eyes: Pupils equal round and reactive to light, Extraocular muscles intact Neck: No stridor, no JVD, full neck ROM Lungs: Clear to auscultation, No wheezing or rales. No increased work of breathing, no conversational dyspnea, no accessory muscle use, no nasal flaring. No respiratory distress noted Heart: Regular rate and rhythm, No murmurs, No rubs and No gallops, 2+ distal pulses (radial, femoral, posterior tibial) in all extremities Abdomen: Soft, there is no tenderness, obvious distention to lower abdomen over bladder, no rigidity, rebound or guarding, no obvious peritoneal signs, no palpable pulsatile abdominal masses, no auscultated abdominal bruit : No CVAT Extremities: No edema Neuro: No new focal neurological deficits, cranial nerves II through XII intact, 5/5 strength in all present extremities. Intact sensation to light touch in all present extremities, 2+ reflexes bilateral patella tendons. Skin: No rash or lesions noted MEDICAL DECISION MAKING: Chief Complaint: please see [facility] External records reviewed: Reviewed prior imaging studies, reviewed current medications Factors affecting care: history of nephrolithiasis, BPH Social determinants of health: none History obtained from others: none Consults: none [facility] Narrative: The patient was initially hemodynamically stable, afebrile and nontoxic-appearing. Exam consistent with urinary tension. Bedside bladder scan showed bladder volume approximate 850 cc I considered the following differential diagnosis: Urinary retention, ALICIA, UTI I obtained labs including BMP and urinalysis to assess if there is any sign of ALICIA or UTI. Mcmahon catheter was placed with return of approximately 1 L of clear urine. Patient noted immediate relief. ALL IMAGES (IF OBTAINED) HAVE BEEN PERSONALLY REVIEWED AND INTERPRETED BY MYSELF. CBC without leukocytosis, severe anemia, no thrombocytopenia. CMP without evidence of acute kidney injury, significant electrolyte abnormality, anion gap to suggest end organ hypo-perfusion, no evidence of metabolic acidosis with a normal bicarb (more content not included)... Normal [facility] Eosinophil percentageOrdered By: Deshawn Mendez on 02-15-2025 Eosinophils/100 WBC (Bld) 0.2 % 0-5 [facility] Erythrocyte distribution wid th ratioOrdered By: Deshawn Mendez on 02-15-2025 Erythrocyte distribution width (RBC) [Ratio] 14.4 % 11.6-14.6 [facility] Erythrocyte distribution wid th standard deviationOrdered By: Deshawn Mendez on 02-15-2025 Erythrocyte distribution width (RBC) [Ratio] 45.8 fl High 35.1-43.9 [facility] Glomerular filtration rate ( GFR) estimation/1.73 sq m using serum, plasma, or whole bOrdered By: Deshawn Mendez on 02-15-2025 GFR/1.73 sq M.predicted among non-blacks MDRD (S/P/Bld) [Vol rate/Area] 66 mL/min/{1.73_m2} >60 [facility] Comment on above: mL/min/1.73m2 CKD-EP I Creatinine Equation (2020) Hematocrit Auto (Bld) [Volum e fraction]Ordered By: Deshawn Mendez on 02-15-2025 Hematocrit (Bld) [Volume fraction] 40.0 % 40-54 [facility] Hemoglobin measurementOrdere d By: Deshawn Mendez on 02-15-2025 Hemoglobin (Bld) [Mass/Vol] 13.2 g/dL 13.0-16.5 [facility] Immature granulocytes/100 WB C Auto (Bld)Ordered By: Deshawn Mendez on 02-15-2025 Immature granulocytes/100 WBC (Bld) 0.500 % 0.0-0.9 [facility] Comment on above: IG% - Immature Granu locytes (promyelocytes, myelocytes and metamyelocytes) > 1% indicates that a LEFT SHIFT is Present. MCV (mean corpuscular volume ) determinationOrdered By: Deshawn Mendez on 02-15-2025 MCV (RBC) [Entitic vol] 87.5 fL 80-94 [facility] Mean corpuscular hemoglobin (MCH) determinationOrdered By: Deshawn Mendez on 02-15-2025 MCH (RBC) [Entitic mass] 28.9 pg 27.0-32.0 [facility] Mean corpuscular hemoglobin concentration (MCHC) determinationOrdered By: Deshawn Mendez on 02-15-2025 MCHC (RBC) [Mass/Vol] 33.0 g/dL 32-36 [facility] Mean platelet volume determi nationOrdered By: Deshawn Mendez on 02-15-2025 Platelet mean volume (Bld) [Entitic vol] 11.1 fL 6.2-12.0 [facility] Monocyte percentageOrdered B y: Deshawn Mendez on 02-15-2025 Monocytes/100 WBC (Bld) 8.3 % 0-10 [facility] Neutrophil percentageOrdered By: Deshawn Mendez on 02-15-2025 Neutrophils/100 WBC (Bld) 79.4 % High 47-70 [facility] Nucleated red blood cell per centageOrdered By: Deshawn Mendez on 02-15-2025 Nucleated RBC/100 WBC (Bld) [Ratio] 0 % 0-5 [facility] Platelet countOrdered By: sAif Mendez on 02-15-2025 Platelets (Bld) [#/Vol] 183 10*3/uL 150-450 [facility] Potassium measurement (mass/ volume)Ordered By: Deshawn Mendez on 02-15-2025 Potassium (Unsp spec) [Mass/Vol] 3.9 mmol/L 3.3-5.1 [facility] RBC Auto (Bld) [#/Vol]Ordere d By: Deshawn Mendez on 02-15-2025 RBC (Bld) [#/Vol] 4.57 10*6/uL Low 4.6-6.2 [facility] Serum creatinine measurement (mass/volume)Ordered By: Deshawn Mendez on 02-15-2025 Creatinine [Mass/Vol] 1.16 mg/dL 0.70-1.20 [facility] Serum glucose measurement (m ass/volume)Ordered By: Deshawn Mendez on 02-15-2025 Glucose [Mass/Vol] 123 mg/dL High 70-99 [facility] Serum or plasma calcium adolfo urement (mass/volume)Ordered By: Deshawn Mendez on 02-15-2025 Calcium [Mass/Vol] 9.1 mg/dL 7.6-11.0 [facility] Serum or plasma urea nitroge n measurement (mass/volume)Ordered By: Deshawn Mendez on 02-15-2025 Urea nitrogen [Mass/Vol] 17 mg/dL 4-19 [facility] Sodium levelOrdered By: Anoop Mendez on 02-15-2025 Sodium [Moles/Vol] 140 mmol/L 133-145 [facility] Urinalysis, Completeon 02-15 RBC > 100 SEEN Normal 0-5 [facility] Comment on above: Order Comment: SUE TER SPECIMEN Performed By: #### L 400.0001, M100.2200 #### [facility] Laboratory [address] [place], [address] WBC 0-5 SEEN Normal 0-5 [facility] Comment on above: Order Comment: SUE TER SPECIMEN Performed By: #### L 400.0001, M100.2200 #### [facility] [address] [place], [address] BACTERIA 0 SEEN Normal None Seen [facility] Comment on above: Order Comment: SUE TER SPECIMEN Performed By: #### L 400.0001, M100.0 #### [facility] [address] [place], [address] EPI,SQUAMOUS 0 SEEN Normal 0-5 [facility] Comment on above: Order Comment: SUE TER SPECIMEN Performed By: #### L 400.0001, M100.2200 #### [facility] [address] [place], [address] Mucus Ql (Urine sed) 0 SEEN Normal [facility] Comment on above: Order Comment: USE TER SPECIMEN Performed By: #### L 400.0001, M100.2200 #### [facility] [address] [place], [address] White blood cell (WBC) count Ordered By: Deshawn Mendez on 02-15-2025 WBC (Bld) [#/Vol] 9.7 10*3/uL 4.4-11.0 [facility] CNNURSEon 02-02-2025 CNNURSE Nurse Visit (FAMPWS) -------- HERIBERTO PEÑALOZA ([id number]) 1950 M NFR Date Time Provider Department 02/02/25 9:15 AM [place] NURSE BLU During your visit today, we [...] Date Reviewed: 11/25/2024 Reviewed by: Negra Ugalde, CCNP.CHILD WELFARE SOCIAL WORKER - Fully Assessed Reason for Visit: B-12 [...] site*09/04/2007 07/29/2012 Routine general medical examination at [facility]*02/01/2009 09/07/2015 Essential hypertension [I10] 03/05/2009 Melanocytic [...] Status:Closed by RAMONITA TREVINO on 02/02/25 Normal [facility] Bone Scan Whole Bodyon 01-08 Bone Scan Whole Body [facility] Imaging Services [address] [place] [address] Bone Scan Whole Body MR#: [id number] Acct: [id number] Name: HERIBERTO PEÑALOZA Jr. Rep #: [id number] : 1950 M 74 From: Sumeet Strong PCP: Dr. Piyush Rivera MD Status: REG CLI Study: Bone Scan Whole Body Date of Exam: 01/08/25 Exam# [id number] Ordering Dr: Torsten Gregg MD PROCEDURE: BONE [...] evidence of osseous metastatic disease Reading Location: [place] [address] CC: Dr. Torsten Gregg MD; Dr. Piyush Rivera MD Aerial Applicator Pilot: Signed Normal [facility] Surgical pathology reportOrd ered By: Monserrat Manzano on 01-07-2025 Surgical pathology study [facility] CNNURSEon 01-05-2025 [facility] (F[facility]WS) -------- HERIBERTO PEÑALOZA ([id number]) 1950 M NFR Date Time Provider Department 01/05/25 9:15 AM [place] NURSE FAMPWS During your visit today, we [...] Date Reviewed: 11/25/2024 Reviewed by: Negra Ugalde, CCNP.CHILD WELFARE SOCIAL WORKER - Fully Assessed Reason for Visit: B-12 [...] site*09/04/2007 07/29/2012 Routine general medical examination at [facility]*02/01/2009 09/07/2015 Essential hypertension [I10] 03/05/2009 Melanocytic [...] Encounter Status:Closed by RAMONITA TREVINO on 01/05/25 [facility] PROSTATE BXon 01-05-2025 PROSTATE BX ---- Patient Age/Sex Location Account Attending Physician HERIBERTO PEÑALOZA Jr. 74/M LABSPEC [id number] Dr. Torsten Gregg MD Specimen: [id number] Received: 01/05/25-1299 Status: JOSELO [place] Num: [id number] Spec Type: PROST BX Subm Dr: Dr. [...] the patient's name, date of , and "RA" is a 0.8 x 0.1 cm thin and wispy core biopsy of soft tissue. Submitted in toto in A1. B. Received in formalin in a container labeled with the patient's name, date of , and "RM" is a 1.0 x 0.1 cm white and wispy core biopsy of soft tissue. Submitted in toto in B1. C. Received in formalin in a container labeled with the patient's name, date of , and "RB" is a 1.3 x 0.1 cm core biopsy of white and wispy soft tissue. Submitted in toto in C1. D. Received in formalin in a container labeled with the patient's name, date of , and "LA" is a 1.4 x 0.1 cm thin and wispy core biopsy of soft tissue. Submitted in toto in D1. E. Received in formalin in a container labeled with the patient's name, date of , and Patient Age/Sex Location Account Attending Physician HERIBERTO PEÑALOZA Jr. 74/M LABSPEC [id number] Dr. Torsten Gregg MD "LM" is a 1.0 x 0.1 cm white and wispy core biopsy of soft tissue. Submitted in toto in E1. F. Received in formalin in a container labeled with the patient's name, date of , and "LB" is a 1.3 x 0.1 cm white and wispy core biopsy of soft tissue. Submitted in toto in F1. [facility] 01-06-2025 CPT: G0146 Patient Age/Sex Location Account Attending Physician HERIBERTO PEÑALOZA Jr. 74/M LABSPEC [id number] Dr. Torsten Gregg MD Signed (signature on file) Dr. Monserrat Manzano DO 01/07/25 1041 Normal [facility] Comment on above: Performed By: #### P PROSB #### [facility] Laboratory [address] [place], [address] Pelvis W/WO Contraston 12-25 Pelvis W/WO Contrast [facility] Imaging Services [address] [place], [place] [id number] Pelvis W/WO Contrast MR#: [id number] Acct: [id number] Name: HERIBERTO PEÑALOZA Jr. Rep #: [id number] : 1950 M 74 From: Aries Tomas MD PCP: Dr. Piyush Rivera MD Status: REG CLI Study: Pelvis W/WO Contrast Date of Exam: 12/25/24 Exam# [id number] Ordering Dr: Torsten Gregg MD PROCEDURE: PELVIS [...] 5. Additional description as above. Reading Location: [id number] CC: Dr. Torsten Gregg MD; Dr. Piyush Rivera MD Aerial Applicator Pilot: Signed [facility] CNNURSEon 12-02-2024 [facility] Nurse Visit (FAMPWS) -------- HERIBERTO PEÑALOZA ([id number]) 1950 M NFR Date Time Provider Department 12/02/24 11:15 AM [place] [facility] During your visit today, we recorded the [...] Date Reviewed: 11/25/2024 Reviewed by: Negra Ugalde, CCNP.CHILD WELFARE SOCIAL WORKER - Fully Assessed Primary Visit Diagnosis:Vitamin B12 [...] site*09/04/2007 07/29/2012 Routine general medical examination at [facility]*02/01/2009 09/07/2015 Essential hypertension [I10] 03/05/2009 Melanocytic [...] Encounter Status:Closed by USHA ALEXANDER on 12/02/24 [facility] CNOVon 11-25-2024 CNOV Office Visit (INTMWS ) -------- HERIBERTO PEÑALOZA ([id number]) 1950 M NFR Date Time Provider Department 11/25/24 8:20 AM NEGRA UGALDE INTMWS During your visit today, we recorded the following information about you: Temperature Pulse Respiration Blood pressure 98.7 degrees 74/minute 14/minute 132/80 Weight 74.8 kg Nerga Ugalde, BLANCO.CHILD WELFARE SOCIAL WORKER 11/25/2024 8:35 AM Signed - Prescription for a combination medication with a cough suppressant and antihistamine sent to [facility] pharmacy. - Drink plenty of fluids to help break up thick drainage. - Use a humidifier at night to alleviate coughing. - Let me know on Sunday if you are not feeling any better Negra Ugalde, CCNP.CHILD WELFARE SOCIAL WORKER 11/25/2024 8:38 AM Signed CC: Patient presents with: Chest Congestion: Cough x 4 days HPI The patient consented to the use of SmartCare system software for draft documentation of the visit consistent with [facility]?s Notice of Privacy Practices. Cough: - Onset: Sunday, four days ago. - Described as "horrible" during coughing fits, with sensation deep in [...] DIAGNOSTIC 11/27/2006 LAPS SURG CHOLECYSTECTOMY W/CHOLANGIOGRAPHY 08/16/2017 [facility] PAST SURGICAL HISTORY OF November Total [...] (5oz) per week Drug use: No Comment: "not usually" BP 132/80 Pulse 74 Temp 37.1 ?C [...] regular rhythm. (more content not included)... [facility] Nurse [facility] (FAMPWS[facility] -------- HERIBERTO PEÑALOZA ([id number]) 1950 M NFR Date Time Provider Department 11/10/24 9:15 AM [place] [facility] During your visit today, we recorded the [...] site*09/04/2007 07/29/2012 Routine general medical examination at [facility]*02/01/2009 09/07/2015 Essential hypertension [I10] 03/05/2009 Melanocytic [...] Status:Closed by RAMONITA TREVINO on 11/10/24 Normal [facility] PSA Total+%Freeon 11-09-2024 PSA, FREE 3.97 ng/mL Normal N/A [facility] Comment on above: Result Comment: Roch nik ECLIA methodology. Performed By: #### L 3110.0500 #### [facility] Laboratory [address] [place], [address] PSA, FREE % 23.2 Normal . [facility] Comment on above: Result Comment: [...] any other population of men. Performed at: [facility] [address] [place], [place] [id number] Monkey Keeper: Jimmy Kelly PhD, Phone: [phone] Performed By: #### L 3110.0500 #### [facility] [address] [place], [address] PSA, TOTAL ULTR 17.100 ng/mL Abnormal 0.000-4.000 [facility] Comment on above: Result Comment: Roch e ECLIA methodology. According to the [employer], Serum PSA should decrease and [...] By: #### L 3110.0500 #### [facility] [address] [place], [address] Free PSA/Total PSA [Mass fra ction]Ordered By: Torsten Gregg on 11-06-2024 % Free Prostate Specific Ag Calc 23.2 % . [facility] Comment on above: The table [...] for any other population of men.Performed at: [facility] [id number] Director: Jimmy Kelly PhD, Phone: [phone] Free prostate specific antig en (PSA) measurementOrdered By: Torsten Gregg on 11-06-2024 Free Prostate Specific Antigen 3.97 ng/mL N/A [facility] Comment on above: Raven ECLIA methodol ogy. PSA, totalOrdered By: Torsten rivas on 11-06-2024 Prostate Specific Ag, Ultra-Sensitv 17.100 ng/mL High 0.000-4.000 [facility] Comment on above: Raven ECLIA methodol ogy.According to the [place] [employer], Serum PSAshould decrease and remain [...] [Mass fraction] 23.2 % . [facility] Comment on above: The table [...] for any other population of men.Performed at: [facility] [id number] Director: Jimmy Kelly PhD, Phone: [phone] Diagnostic total prostate sp ecific antigen (PSA) measurementOrdered By: Michelle Ely on 10-28-2024 Prostate Specific Antigen Total 17.70 ng/mL High 0.00-4.00 [facility] Comment on above: This test [...] DIAGNOSTIC 17.70 ng/mL High 0.00-4.00 [facility] Comment on above: Result Comment: [...] confirm baseline values. Performed By: #### L 209.7156 #### [facility] [place], [address] CNNURSEon 10-13-2024 [facility] Nurse Visit (FAMPWS) -------- HERIBERTO PEÑALOZA ([id number]) 1950 M NFR Date Time Provider Department 10/13/24 9:15 AM [place] [facility] During your visit today, we recorded the [...] site*09/04/2007 07/29/2012 Routine general medical examination at [facility]*02/01/2009 09/07/2015 Essential hypertension [I10] 03/05/2009 Melanocytic [...] Encounter Status:Closed by RAMONITA TREVINO on 10/13/24 [facility] CNPNon 09-24-2024 CNPN Telephone (INTMWS) -------- HERIBERTO PEÑALOZA ([id number]) 1950 M NFR Date Time Provider Department [...] site*09/04/2007 07/29/2012 Routine general medical examination at [facility]*02/01/2009 09/07/2015 Essential hypertension [I10] 03/05/2009 Melanocytic [...] Encounter Status:Closed by RAMONITA TREVINO on 09/25/24 [facility] Nurse Visit (BLU) -------- HERIBERTO PEÑALOZA ([id number]) 1950 M NFR Date Time Provider Department 09/08/24 8:45 AM [place] NURSE BLU During your visit today, we [...] site*09/04/2007 07/29/2012 Routine general medical examination at [facility]*02/01/2009 09/07/2015 Essential hypertension [I10] 03/05/2009 Melanocytic [...] Status:Closed by RAMONITA TREVINO on 09/08/24 Normal [facility] CNOVon 08-28-2024 CNOV Office Visit (INTMWS ) -------- HERIBERTO PEÑALOZA ([id number]) 1950 M NFR Date Time Provider Department 08/28/24 1:40 PM PIYUSH RIVERA INTYnesWS During your visit today, we recorded the following information about you: Temperature Pulse Respiration Blood pressure 98.2 degrees 72/minute 18/minute 118/68 Weight 75.7 kg Piyush Rivera MD 08/28/2024 2:17 PM Signed This note was created using Funky Movesriter. Subjective Heriberto Peñaloza is a 74 year [...] (5oz) per week Drug use: No Comment: "not usually" Current Outpatient Medications Medication Sig tamsulosin (FLOMAX) [...] - PFIZER-BIONTECH COVID-19 VACCINE AGE 12+ YR (COMNAT) 3. Pernicious anemia - ICD9: 281.0, ICD10: [...] Pernicious anemia [D51.0] Vitamin D deficiency [E55.9] Order(s):PFIZER-BIONTECH COVID-19 VACCINE AGE 12+ YR (COMIRNATY) [[id number]] Order #: [id number] COMPLETE BLOOD COUNT [SQCBC] Order #: [id number] FUTURE VITAMIN B12 [SQB12] Order #: [id number] FUTURE LIPID PANEL BASIC [SQLIPB] Order #: [id number] FUTURE COMPREHENSIVE METABOLIC PANEL [SQCMP] Order #: [id number] FUTURE Prescriptions as of 08/28/2024 - tamsulosin [...] daily. Facility-Adm (more content not included)... [facility] Nurse Visit (FAMPWS) -------- HERIBERTO PEÑALOZA ([id number]) 1950 M NFR Date Time Provider Department 08/11/24 9:15 AM [place] [facility] During your visit today, we recorded the following information about you: Ramonita Trevino LPN 08/11/2024 9:43 AM Signed Patient presents for B-12 injection. Denies any problems at this time. Patient instructed on any SE of medication, verbalized understanding and agreed to proceed with treatment. Tolerated injection well. Ramointa Trevino LPN Allergies As of Date: 08/11/2024 [...] site*09/04/2007 07/29/2012 Routine general medical examination at [facility]*02/01/2009 09/07/2015 Essential hypertension [I10] 03/05/2009 Melanocytic [...] Encounter Status:Closed by RAMONITA TREVINO on 08/11/24 [facility] 07-07-2024 [facility] (FAMPWS[facility] -------- HERIBERTO PEÑALOZA ([id number]) 1950 M NFR Date Time Provider Department 07/07/24 9:15 AM [place] NURSE FAMPWS During your visit today, we [...] site*09/04/2007 07/29/2012 Routine general medical examination at [facility]*02/01/2009 09/07/2015 Essential hypertension [I10] 03/05/2009 Melanocytic [...] Encounter Status:Closed by RAMONITA TREVINO on 07/07/24 Normal [facility] CNNURSEon 06-09-2024 [facility] Nurse Visit (FAMPWS) -------- HERIBERTO PEÑALOZA ([id number]) 1950 M NFR Date Time Provider Department 06/09/24 9:45 AM [place] [facility] During your visit today, we recorded the [...] site*09/04/2007 07/29/2012 Routine general medical examination at [facility]*02/01/2009 09/07/2015 Essential hypertension [I10] 03/05/2009 Melanocytic [...] Encounter Status:Closed by RAMONITA TREVINO on 06/09/24 [facility] CNOVon 05-19-2024 CNOV Office Visit (INTMWS ) -------- HERIBERTO PEÑALOZA ([id number]) 1950 M NFR Date Time Provider Department 05/19/24 3:00 PM PIYUSH RIVERA INTMWS During your visit today, we recorded the following information about you: Temperature Pulse Blood pressure Weight 97 degrees 71/minute 135/72 75.1 kg Piyush Rivera MD 05/19/2024 3:30 PM Signed This note was created using Funky Movesriter. Subjective Heriberto Peñaloza is a 73 year [...] (5oz) per week Drug use: No Comment: "not usually" Current Outpatient Medications Medication Sig lisinopril (ZESTRIL) [...] 65+ YR, HIGH DOSE, TRIVALENT (FLUZONE HIGH-DOSE) [13362EKV] Order #: [id number] lisinopril (ZESTRIL) 40 mg tabletTake 1 tablet [...] NOS [D64.9] (more content not included)... Normal [facility] [facility] Rikki 05-19-2024 MICHAELA Telephone (INTMWS) -------- HERIBERTO PEÑALOZA ([id number]) 1950 M NFR Date Time Provider Department 05/19/24 PIYUSH RIVERA During your visit today, we recorded the following information about you: Ruth De León LPN 05/19/2024 9:37 AM Signed ----- Message from Piyush Rivera MD sent at 05/17/2024 3:57 PM EDT ----- chest X-ray within normal limits. Ruth De León LPN 05/19/2024 9:39 AM Signed [...] 07/29/2012 Routine general medical examination at [facility]*02/01/2009 09/07/2015 Essential hypertension [I10] 03/05/2009 Melanocytic Nevi/ [...] Status:Closed by FATOU RODRIGUEZ on 05/19/24 Normal [facility] XR CHEST 2V FRONTAL/LATon XR CHEST 2V FRONTAL/LAT * * *Final Repor t* * * DATE OF EXAM: May 14 [...] and osteophytosis. IMPRESSION: No acute radiographic abnormality. Aerial Applicator Pilot: JOVITA Transcribe Date/Time: May 14 2024 4:17P Dictated by : CORNELL JAMISON MD This examination was interpreted and the report reviewed and electronically signed by: CORNELL JAMISON MD on May 14 2024 4:19PM EST [id number] Normal [facility] XR Chest PA and Lateralon IMPRESSION: No acute radiographic abnormality. Aerial Applicator Pilot: PSCB Transcribe Date/Time: May 14 2024 4:17P [...] osteophytosis. IMPRESSION IMPRESSION: No acute radiographic abnormality. Aerial Applicator Pilot: JOVITA Transcribe Date/Time: May 14 2024 4:17P Dictated by : CORNELL JAMISON MD This examination was interpreted and the report reviewed and electronically signed by: CORNELL JAMISON MD on May 14 2024 4:19PM [facility] Radiology Study observation (narrative) Alanis strong [facility] XR Chest PA and LateralOrder ed By: Ccf Provider on 05-14-2024 [facility] CNNURSEon 05-12-2024 CNNURSE Nurse Visit (FAMPWS) -------- HERIBERTO PEÑALOZA ([id number]) 1950 M NFR Date Time Provider Department 05/12/24 9:15 AM [place] NURSE BLU During your visit today, we [...] site*09/04/2007 07/29/2012 Routine general medical examination at [facility]*02/01/2009 09/07/2015 Essential hypertension [I10] 03/05/2009 Melanocytic [...] Status:Closed by RAMONITA TREVINO on 05/12/24 Normal [facility] HERIBERTO PEÑALOZA ([id number]) 1950 M NFR Date Time Provider Department 05/12/24 PIYUSH RIVERA During your visit today, we [...] site*09/04/2007 07/29/2012 Routine general medical examination at [facility]*02/01/2009 09/07/2015 Essential hypertension [I10] 03/05/2009 Melanocytic [...] [R29.898] 06/27 (more content not included)... Normal [facility] ECHOon 04-24-2024 Echocardiography Echocardiography Rep ort: Transthoracic Echo [facility] Date of service: 04/24/2024 3:16:22 PM ASSISTANT Ordering physician: PIYSUH RIVERA Indication: Abnormal ECG Technologist: Ana Scales [facility] Interpreting physician: Kartik Sanchez MD PATIENT: Name: [...] * * Final (Updated) * * * [employer] Medical Image : [id number] ID Normal [facility] CNOVon 04-16-2024 CNOV Office Visit (INTMWS ) -------- HERIBERTO PEÑALOZA ([id number]) 1950 M NFR Date Time Provider Department 04/16/24 8:20 AM PIYUSH RIVERA INTMWS During your visit today, we recorded the following information about you: Temperature Pulse Respiration Blood pressure 97.5 degrees 69/minute 20/minute 146/78 Weight 73.6 kg Piyush Rivera MD 04/16/2024 9:10 AM Signed This note was created using Needly. Subjective Heriberto Peñaloza is a 73 year [...] Mental Status: He is alert. Latest Ref Rn 04/14/2024 WBC 3.70 - 11.00 k/uL 6.06 [...] Abs Lymph 1.00 - 4.00 k/uL 2.01 Burnet% % 11.1 Abs Burnet <0.87 k/uL 0.67 Eosin% % 2.0 Abs [...] (2 tablets) (more content not included)... Normal [facility] ECG COMPLETEon 04-16-2024 ECG COMPLETE Ventricular Rate : 6 4 BPM Atrial Rate : 64 BPM P-R Interval : 154 ms QRS Duration : 130 ms Q-T Interval : 450 ms QTC Calculation(Bazett) : 464 ms Calculated P [place] : 57 degrees Calculated R [place] : -60 degrees Calculated T [place] : -36 degrees NORMAL SINUS RHYTHM COMPLETE RIGHT BUNDLE BRANCH BLOCK LEFT ANTERIOR FASCICULAR BLOCK BIFASCICULAR BLOCK LATERAL T WAVE ABNORMALITY ABNORMAL ECG Confirmed by ILA SANTIZO DO ([id number]) on 04/17/2024 1:01:24 PM NAME : HERIBERTO PEÑALOZA PID : [id number] : 1950 Gender : Male Race : ORD : [id number] Procedure Date : Apr 16 2024 08:43:30 Edit Date : Apr 17 2024 13:55:35 Diagnosis: NORMAL SINUS RHYTHM COMPLETE RIGHT BUNDLE BRANCH BLOCK LEFT ANTERIOR FASCICULAR BLOCK BIFASCICULAR BLOCK LATERAL T WAVE ABNORMALITY ABNORMAL ECG Confirmed by ILA SANTIZO DO ([id number]) on 04/17/2024 1:01:24 PM Test Reason : J90 Pleural effusion Location : 185 : [facility] Overread By : ILA SANTIZO DO Edited By : ILA SANTIZO DO Referred By : PIYUSH RIVERA Acquired by : Armando MAHARAJ [facility] Rikki [facility]-15-20[facility] -------- HERIBERTO PEÑALOZA ([id number]) 1950 M NFR Date Time Provider Department 04/15/24 SUZANNE TSANG [facility] During your visit today, we recorded the [...] site*09/04/2007 07/29/2012 Routine general medical examination at [facility]*02/01/2009 09/07/2015 Essential hypertension [I10] 03/05/2009 Melanocytic [...] Encounter Status:Closed by SUZANNE TSANG on 04/15/24 [facility] HERIBERTO PEÑALOZA ([id number]) 1950 M NFR Date Time Provider Department 04/15/24 [facility] During your visit today, we recorded the [...] site*09/04/2007 07/29/2012 Routine general medical examination at [facility]*02/01/2009 09/07/2015 Essential hypertension [I10] 03/05/2009 Melanocytic [...] Status:Closed by SADIE TOSCANO on 04/15/24 Normal [facility] CBC W Auto Differential pane l (Bld)on 04-14-2024 Basophils (Bld) [#/Vol] 10*3/uL Normal <0.11 C [facility] Comment on above: Order Comment: Speci men Type: BLOOD SPECIMENOrdering Facility: [facility] Address: [address] [place] [address] Performed By: #### 5 7021-8 ####[facility] LABCLIA [id number] [place] [address] [place] Basophils/100 WBC (Bld) 0.3 % Normal C [facility] Comment on above: Order Comment: Speci men Type: BLOOD SPECIMENOrdering Facility: [facility] Address: [address] [place] [address] Performed By: #### 5 7021-8 ####[facility] LABCLIA [id number] [place] [address] [place] Differential cell count method Nom (Bld) Auto Normal [facility] Comment on above: Order Comment: Speci men Type: BLOOD SPECIMENOrdering Facility: [facility] Address: [address] [place] [address] Performed By: #### 5 7021-8 ####[facility] LABCLIA [id number] [place] [address] [place] Eosinophils (Bld) [#/Vol] 0.12 10*3/uL Normal <0.46 [facility] Comment on above: Order Comment: Speci men Type: BLOOD SPECIMENOrdering Facility: [facility] Address: [address] [place] [address] Performed By: #### 5 7021-8 ####[facility] LABCLIA [id number] [place] [address] [place] Eosinophils/100 WBC (Bld) 2.0 % Normal [facility] Comment on above: Order Comment: Speci men Type: BLOOD SPECIMENOrdering Facility: [facility] Address: [address] [place] [address] Performed By: #### 5 7021-8 ####[facility] LABCLIA [id number] [place] [address] [place] Erythrocyte distribution width (RBC) [Ratio] 14.9 % Normal 11.5-15.0 [facility] Comment on above: Order Comment: Speci men Type: BLOOD SPECIMENOrdering Facility: [facility] Address: [address] [place] [address] Performed By: #### 5 7021-8 ####[facility] LABCLIA [id number] [place] [address] [place] Hematocrit (Bld) [Volume fraction] 41.2 % Normal 39.0-51.0 [facility] Comment on above: Order Comment: Speci men Type: BLOOD SPECIMENOrdering Facility: [facility] Address: [address] [place] [address] Performed By: #### 5 7021-8 ####[facility] LABCLIA [id number] [place] [address] [place] Hemoglobin (Bld) [Mass/Vol] 13.1 g/dL Normal 13.0-17.0 [facility] Comment on above: Order Comment: Speci men Type: BLOOD SPECIMENOrdering Facility: [facility] Address: [address] [place] [address] Performed By: #### 5 7021-8 ####[facility] LABCLIA [id number] [place] [address] [place] Immature granulocytes (Bld) [#/Vol] 10*3/uL Normal <0.10 [facility] Comment on above: Order Comment: Speci men Type: BLOOD SPECIMENOrdering Facility: [facility] Address: [address] [place] [address] Performed By: #### 5 7021-8 ####[facility] LABCLIA [id number] [place] [address] [place] Immature granulocytes/100 WBC (Bld) 0.3 % Normal [facility] Comment on above: Order Comment: Speci men Type: BLOOD SPECIMENOrdering Facility: [facility] Address: [address] [place] [address] Performed By: #### 5 7021-8 ####[facility] LABCLIA [id number] [place] [address] [place] Lymphocytes (Bld) [#/Vol] 2.01 10*3/uL Normal 1.00-4.00 [facility] Comment on above: Order Comment: Speci men Type: BLOOD SPECIMENOrdering Facility: [facility] Address: [address] [place] [address] Performed By: #### 5 7021-8 ####[facility] LABCLIA [id number] [place] [address] [place] Lymphocytes/100 WBC (Bld) 33.2 % Normal [facility] Comment on above: Order Comment: Speci men Type: BLOOD SPECIMENOrdering Facility: [facility] Address: [address] [place] [address] Performed By: #### 5 7021-8 ####[facility] LABIA [id number] [place] [address] [place] MCH (RBC) [Entitic mass] 28.1 pg Normal 26.0-34.0 [facility] Comment on above: Order Comment: Speci men Type: BLOOD SPECIMENOrdering Facility: [facility] Address: [address] [place] [address] Performed By: #### 5 7021-8 ####[facility] LABIA [id number] [place] [address] [place] MCHC (RBC) [Mass/Vol] 31.8 g/dL Normal 30.5-36.0 [facility] Comment on above: Order Comment: Speci men Type: BLOOD SPECIMENOrdering Facility: [facility] Address: [address] [place] [address] Performed By: #### 5 7021-8 ####[facility] LABCLIA [id number] [place] [address] [place] MCV (RBC) [Entitic vol] 88.4 fL Normal 80.0-100.0 C [facility] Comment on above: Order Comment: Speci men Type: BLOOD SPECIMENOrdering Facility: [facility] Address: [address] [place] [address] Performed By: #### 5 7021-8 ####[facility] LABCLIA [id number] [place] [address] [place] Monocytes (Bld) [#/Vol] 0.67 10*3/uL Normal <0.87 [facility] Comment on above: Order Comment: Speci men Type: BLOOD SPECIMENOrdering Facility: [facility] Address: [address] [place] [address] Performed By: #### 5 7021-8 ####[facility] LABCLIA [id number] [place] [address] [place] Monocytes/100 WBC (Bld) 11.1 % Normal C [facility] Comment on above: Order Comment: Speci men Type: BLOOD SPECIMENOrdering Facility: [facility] Address: [address] [place] [address] Performed By: #### 5 7021-8 ####[facility] LABCLIA [id number] [place] [address] [place] Neutrophils (Bld) [#/Vol] 3.22 10*3/uL Normal 1.45-7.50 [facility] Comment on above: Order Comment: Speci men Type: BLOOD SPECIMENOrdering Facility: [facility] Address: [address] [place] [address] Performed By: #### 5 7021-8 ####[facility] LABCLIA [id number] [place] [address] [place] Neutrophils/100 WBC (Bld) 53.1 % Normal [facility] Comment on above: Order Comment: Speci men Type: BLOOD SPECIMENOrdering Facility: [facility] Address: [address] [place] [address] Performed By: #### 5 7021-8 ####[facility] LABCLIA [id number] [place] [address] [place] Nucleated RBC (Bld) [#/Vol] 10*3/uL Normal <0.01 [facility] Comment on above: Order Comment: Speci men Type: BLOOD SPECIMENOrdering Facility: [facility] Address: [address] [place] [address] Performed By: #### 5 7021-8 ####[facility] LABCLIA [id number] [place] [address] [place] Nucleated RBC/100 WBC (Bld) [Ratio] 0.0 /100 WBC Normal [facility] Comment on above: Order Comment: Speci men Type: BLOOD SPECIMENOrdering Facility: [facility] Address: [address] [place] [address] Performed By: #### 5 7021-8 ####[facility] LABIA [id number] [place] [address] [place] Platelet mean volume (Bld) [Entitic vol] 11.9 fL Normal 9.0-12.7 [facility] Comment on above: Order Comment: Speci men Type: BLOOD SPECIMENOrdering Facility: [facility] Address: [address] [place] [address] Performed By: #### 5 7021-8 ####[facility] LABIA [id number] [place] [address] [place] Platelets (Bld) [#/Vol] 202 10*3/uL Normal 150-400 [facility] Comment on above: Order Comment: Speci men Type: BLOOD SPECIMENOrdering Facility: [facility] Address: [address] [place] [address] Performed By: #### 5 7021-8 ####[facility] LABCLIA [id number] [place] [address] [place] RBC (Bld) [#/Vol] 4.66 10*6/uL Normal 4.20-6.00 [facility] Comment on above: Order Comment: Speci men Type: BLOOD SPECIMENOrdering Facility: [facility] Address: [address] [place] [address] Performed By: #### 5 7021-8 ####[facility] LABCLIA [id number] [place] [address] [place] WBC (Bld) [#/Vol] 6.06 10*3/uL Normal 3.70-11.00 [facility] Comment on above: Order Comment: Speci men Type: BLOOD SPECIMENOrdering Facility: [facility] Address: [address] [place] [address] Performed By: #### 5 7021-8 ####[facility] LABCLIA [id number] [address] [place] CNOVon 04-14-2024 [facility]OV [facility] -------- MONI PEÑALOZABERT Ynes ([id number]) 1950 M NFR Date Time Provider Department 04/14/24 3:00 PM AMEYA AGUDELO [facility] During your visit today, we recorded the [...] Diagnosis:Pleural effusion [J90] Order(s):XR CHEST 2V FRONTAL/LAT [4823971] Order #: [id number] FUTURE COVID NAAT, UPPER RESPIRATORY, ROUTINE [SQCOVID] Order #: [id number]. #:[id number] COMPREHENSIVE METABOLIC PANEL [SQCMP] Order #: [id number] FUTURE NT PRO BNP [SQNTBNP] Order #: [id number] FUTURE COMPLETE BLOOD COUNT AND DIFFERENTIAL [SQCBCDIF] Order #: [id number] FUTURE D-DIMER [SQDDMER] Order #: [id number] FUTURE Prescriptions as of 04/14/2024 - lisinopril [...] site*09/04/2007 07/29/2012 Routine general medical examination at [facility]*02/01/2009 09/07/2015 Essential hypertension [I10] (more content not included)... Normal [facility] Comprehensive metabolic 2000 panelon 04-14-2024 Albumin [Mass/Vol] 4.0 g/dL Normal 3.9-4.9 [facility] Comment on above: Order Comment: Speci men Type: BLOOD SPECIMENOrdering Facility: [facility] Address: [address] [place] [address] Performed By: #### 3 3762-6, ####[facility] LABCLIA [id number] [place] [address] [place] ALP [Catalytic activity/Vol] 86 U/L Normal 38-113 [facility] Comment on above: Order Comment: Speci men Type: BLOOD SPECIMENOrdering Facility: [facility] Address: [address] [place] [address] Performed By: #### 3 3762-6, ####[facility] LABCLIA [id number] [place] [address] [place] ALT [Catalytic activity/Vol] 14 U/L Normal 10-54 [facility] Comment on above: Order Comment: Speci men Type: BLOOD SPECIMENOrdering Facility: [facility] Address: [address] [place] [address] Performed By: #### 3 3762-6, ####[facility] LABCLIA [id number] [place] [address] [place] Anion gap [Moles/Vol] 12 mmol/L Normal 8-15 [facility] Comment on above: Order Comment: Speci men Type: BLOOD SPECIMENOrdering Facility: [facility] Address: [address] [place] [address] Performed By: #### 3 3762-6, ####[facility] LABIA [id number] [place] [address] [place] AST [Catalytic activity/Vol] 17 U/L Normal 14-40 [facility] Comment on above: Order Comment: Speci men Type: BLOOD SPECIMENOrdering Facility: [facility] Address: [address] [place] [address] Performed By: #### 3 3762-6, ####[facility] LABIA [id number] [place] [address] [place] Bilirubin [Mass/Vol] 0.4 mg/dL Normal 0.2-1.3 [facility] Comment on above: Order Comment: Speci men Type: BLOOD SPECIMENOrdering Facility: [facility] Address: [address] [place] [address] Performed By: #### 3 3762-6, ####[facility] LABIA [id number] [place] [address] [place] Calcium [Mass/Vol] 8.9 mg/dL Normal 8.5-10.2 [facility] Comment on above: Order Comment: Speci men Type: BLOOD SPECIMENOrdering Facility: [facility] Address: [address] [place] [address] Performed By: #### 3 3762-6, ####[facility] LABIA [id number] [place] [address] [place] Chloride [Moles/Vol] 106 mmol/L Normal 98-107 [facility] Comment on above: Order Comment: Speci men Type: BLOOD SPECIMENOrdering Facility: [facility] Address: [address] [place] [address] Performed By: #### 3 3762, ####[facility] LABCLIA [id number] [place] [id number] [place] CO2 [Moles/Vol] 24 mmol/L Normal 22-30 [facility] Comment on above: Order Comment: Speci men Type: BLOOD SPECIMENOrdering Facility: [facility] Address: [address] [place] [address] Performed By: #### 3 376-6, ####[facility] LABIA [id number] [place] [address] [place] Creatinine [Mass/Vol] 1.18 mg/dL Normal 0.73-1.22 [facility] Comment on above: Order Comment: Speci men Type: BLOOD SPECIMENOrdering Facility: [facility] Address: [address] [place] [address] Performed By: #### 3 3766, ####[facility] [id number] [place] [address] [place] Creatinine and Glomerular filtration rate.predicted panel (S/P/Bld) 65 mL/min/1.73m??? Normal >=60 [facility] Comment on above: Order Comment: Speci men Type: BLOOD SPECIMENOrdering Facility: [facility] Address: [address] [place] [address] Result Comment: Yaa mated Glomerular Filtration Rate [...] actual GFR. Performed By: #### 3 3762-6, ####[facility] LABIA [id number] [place] [id number] [place] Glucose [Mass/Vol] 79 mg/dL Normal 74-99 [facility] Comment on above: Order Comment: Richard bruno Type: BLOOD SPECIMENOrdering Facility: [facility] Address: [address] [place] [address] Result Comment: The [place] Diabetes Association (ADA) provides guidance for cutoff [...] Standards of Medical Care in Diabetes 2016, [place] [employer] Association. Diabetes Care. 2016.39(Suppl 1). Performed By: #### 3 3762-6, 74407-0 ####[facility] LABCLIA [id number] [place] [address] [place] Potassium [Moles/Vol] 4.5 mmol/L Normal 3.7-5.1 [facility] Comment on above: Order Comment: Richard bruno Type: BLOOD SPECIMENOrdering Facility: [facility] Address: [address] [place] [address] Performed By: #### 3 3762-6, 24153-2 ####[facility] LABCLIA [id number] [facility] [place] [address] [place] Protein [Mass/Vol] 6.9 g/dL Normal 6.3-8.0 [facility] Comment on above: Order Comment: Richard bruno Type: BLOOD SPECIMENOrdering Facility: [facility] Address: [address] [place] [address] Performed By: #### 3 3762-6, 23626-3 ####[facility] LABCLIA [id number] [facility] [place] [address] [place] Sodium [Moles/Vol] 142 mmol/L Normal 136-144 [facility] Comment on above: Order Comment: Speci men Type: BLOOD SPECIMENOrdering Facility: [facility] Address: [address] [place] [address] Performed By: #### 3 3762-6, 53062-8 ####[facility] LABIA [id number] [place] [address] [place] Urea nitrogen [Mass/Vol] 18 mg/dL Normal 9-24 [facility] Comment on above: Order Comment: Speci men Type: BLOOD SPECIMENOrdering Facility: [facility] Address: [address] [place] [address] Performed By: #### 3 3762-6, 51024-9 ####[facility] LABIA [id number] [place] [address] [place] D dimer FEU PPP-mCncon 04-14 Fibrin D-dimer FEU (PPP) [Mass/Vol] 740 ng/mL FEU High <500 [facility] Comment on above: Order Comment: Speci men Type: BLOOD SPECIMENOrdering Facility: [facility] Address: [address] [place] [address] Result Comment: Efraz en Plasma Aliquot Performed By: #### 4 8065-7 ####[facility] [id number] [place] [address] [place] Fibrin D-dimer FEU (PPP) [Ma ss/Vol]on 04-14-2024 D DIMER AGE-RELATED CUTOFF 730 ng/mL FEU Normal [facility] Comment on above: Order Comment: Speci men Type: BLOOD SPECIMENOrdering Facility: [facility] Address: [address] [place] [address] Performed By: #### 4 8065-7 ####[facility] LABIA [id number] [place] [address] [place] NT-proBNP SerPl-mCncon 04-14 Natriuretic peptide.B prohormone N-Terminal [Mass/Vol] 218 pg/mL High <125 [facility] Comment on above: Order Comment: Speci men Type: BLOOD SPECIMENOrdering Facility: [facility] Address: [address] [place] [address] Performed By: #### 3 3762-6, 05443-5 ####[facility] LABIA [id number] [address] [place] SARS-CoV-2 RNA Resp Ql CORAL+p robeon 04-14-2024 SARS-CoV-2 (COVID-19) RNA CORAL+probe Ql (Resp) COVID 19 RESULT: Detected The method used is RT-PCR or an equivalent NAAT method. Reference Range (the expected result in uninfected individuals): Not detected Normal [facility] Comment on above: Performed By: #### 9 4500-6 ####[facility] LABIA [id number] [address] [place] XR CHEST 2V FRONTAL/LATon XR CHEST 2V FRONTAL/LAT * * *Final Repor t* * * DATE OF EXAM: Apr 14 [...] tissues: Unremarkable. IMPRESSION: Bilateral small pleural effusions. Aerial Applicator Pilot: JOVITA Transcribe Date/Time: Apr 14 2024 3:58P Dictated by : AZ MEDINA MD This examination was interpreted and the report reviewed and electronically signed by: AZ MEDINA MD on Apr 14 2024 3:58PM EST [id number] Normal [facility] XR Chest PA and Lateralon IMPRESSION: Bilateral small pleural effusions. Aerial Applicator Pilot: [email or web address] Transcribe Date/Time: Apr 14 2024 3:58P [...] soft tissues: Unremarkable. DIVISION OF RADIOLOGY Provider, [facility]ron[facility] - 04/14/2024 * * *Final Report* [...] Unremarkable. IMPRESSION IMPRESSION: Bilateral small pleural effusions. Aerial Applicator Pilot: JOVITA Transcribe Date/Time: Apr 14 2024 3:58P Dictated by : AZ MEDINA MD This examination was interpreted and the report reviewed and electronically signed by: AZ MEDINA MD on Apr 14 2024 3:58PM EST [facility] Radiology Study observation (narrative) [facility] XR Chest PA and LateralOrder ed By: Ccf Provider on 04-14-2024 [facility] Basic metabolic 2000 panelon 04-07-2024 Anion gap [Moles/Vol] 9 mmol/L Normal 8-15 [facility] Comment on above: Order Comment: Speci men Type: BLOOD SPECIMENOrdering Facility: [facility] Address: [address] [place] [address] Performed By: #### 2 4321-2 ####[facility] [id number] [place] [address] [place] Calcium [Mass/Vol] 8.9 mg/dL Normal 8.5-10.2 [facility] Comment on above: Order Comment: Speci men Type: BLOOD SPECIMENOrdering Facility: [facility] Address: [address] [place] [address] Performed By: #### 2 4321-2 ####[facility] [id number] [place] [address] [place] Chloride [Moles/Vol] 106 mmol/L Normal 98-107 [facility] Comment on above: Order Comment: Speci men Type: BLOOD SPECIMENOrdering Facility: [facility] Address: [address] [place] [address] Performed By: #### 2 4321-2 ####[facility]ITAL[facility]CLIA [id number] [place] [address] [place] CO2 [Moles/Vol] 25 mmol/L Normal 22-30 [facility] Comment on above: Order Comment: Speci men Type: BLOOD SPECIMENOrdering Facility: [facility] Address: [address] [place] [address] Performed By: #### 2 4321-2 ####[facility]ITALNCLI [id number] [place] [address] [place] Creatinine [Mass/Vol] 0.90 mg/dL Normal 0.73-1.22 [facility] Comment on above: Order Comment: Richard bruno Type: BLOOD SPECIMENOrdering Facility: [facility] Address: [address] [place] [address] Performed By: #### 2 4321-2 ####[facility] [id number] [place] [address] [place] Creatinine and Glomerular filtration rate.predicted panel (S/P/Bld) 90 mL/min/1.73m??? Normal >=60 [facility] Comment on above: Order Comment: Richard bruno Type: BLOOD SPECIMENOrdering Facility: [facility] Address: [address] [place] [address] Result Comment: Yaa mated Glomerular Filtration Rate [...] actual GFR. Performed By: #### 2 4321-2 ####[facility] [id number] [place] [address] [place] Glucose [Mass/Vol] 103 mg/dL High 74-99 [facility] Comment on above: Order Comment: Richard bruno Type: BLOOD SPECIMENOrdering Facility: [facility] Address: [address] [place] [address] Result Comment: The [place] Diabetes Association (ADA) provides guidance for cutoff [...] Standards of Medical Care in Diabetes 2016, Mexican Diabetes Association. Diabetes Care. 2016.39(Suppl 1). Performed By: #### 2 4321-2 ####[facility] CENTERDilia [id number] [place] [address] [place] Potassium [Moles/Vol] 3.7 mmol/L Normal 3.7-5.1 [facility] Comment on above: Order Comment: Richard bruno Type: BLOOD SPECIMENOrdering Facility: [facility] Address: [address] [place] [address] Performed By: #### 2 4321-2 ####[facility] [id number] [place] [address] [place] Sodium [Moles/Vol] 140 mmol/L Normal 136-144 [facility] Comment on above: Order Comment: Richard bruno Type: BLOOD SPECIMENOrdering Facility: [facility] Address: [address] [place] [address] Performed By: #### 2 4321-2 ####[facility] [id number] [place] [address] [place] Urea nitrogen [Mass/Vol] 16 mg/dL Normal 9-24 [facility] Comment on above: Order Comment: Richard bruno Type: BLOOD SPECIMENOrdering Facility: [facility] Address: [address] [place] [address] Performed By: #### 2 4321-2 ####[facility]ITALLI [id number] [place] [address] [place] CNNURSEon 04-07-2024 [facility] Nurse [facility] (FAMPWS) -------- HERIBERTO PEÑALOZA ([id number]) 1950 M NFR Date Time Provider Department 04/07/24 9:45 AM [place] NURSE [facility]WS During your visit today, we recorded the following information about you: Ramonita Trevino LPN 04/07/2024 9:20 AM Signed Patient presents for B-12 injection. Denies any problems at this time. Patient instructed on any SE of medication, verbalized understanding and agreed to proceed with treatment. Tolerated injection well. Ramonita Trevino LPN Referring Provider: PIYUSH RIVERA [[id number]] Allergies As of Date: 04/07/2024 Noted Allergy [...] site*09/04/2007 07/29/2012 Routine general medical examination at [facility]*02/01/2009 09/07/2015 Essential hypertension [I10] 03/05/2009 Melanocytic [...] Encounter Status:Closed by RAMONITA TREVINO on 04/07/24 [facility] CNPN Telephone (INTMWS) -------- HERIBERTO PEÑALOZA ([id number]) 1950 M NFR Date Time Provider Department [...] up to date and provider notified ZHANNA Fuller Victor H, MD 04/07/2024 1:48 PM Signed 1) Blood [...] 07/29/2012 [facility]ine [facility] at [facility]*02/01/2009 09/07/2015 Essential hypertension [I10] 03/05/2009 Melanocytic Nevi/ [...] Encounter Status:Closed by FATOU RODRIGUEZ on 04/07/24 [facility] Nurse Visit (FAMPWS) -------- HERIBERTO PEÑALOZA ([id number]) 1950 M NF Date Time Provider Department 03/03/24 9:15 AM [place] [facility] During your visit today, we recorded the following information about you: Ramonita Trevino LPN 03/03/2024 9:33 AM Signed Patient presents for B-12 injection. Denies any problems at this time. Patient instructed on any SE of medication, verbalized understanding and agreed to proceed with treatment. Tolerated injection well. Ramonita Trevino LPN Referring Provider: PIYUSH RIVERA [[id number]] Allergies As of Date: 03/03/2024 Noted Allergy [...] site*09/04/2007 07/29/2012 Routine general medical examination at [facility]*02/01/2009 09/07/2015 Essential hypertension [I10] 03/05/2009 Melanocytic [...] Status:Closed by RAMONITA TREVINO on 03/03/24 [facility] 03-03-2024 CNP Telephone (INTMWS) -------- HERIBERTO PEÑALOZA ([id number]) 1950 M NFR Date Time Provider Department 03/03/24 PIYUSH RIVERA INTGONZALO During your visit today, we recorded the [...] appt changed to inoffice. Fatou Rodriguez LPN Allergies As of Date: 03/03/2024 Noted Allergy Reaction POLYSPORIN (BACITRACIN-POLYMYXIN *07/15/2007 2 - Rash Date Reviewed: 02/25/2024 Reviewed by: Fatou Rodriguez LPN - Fully Assessed Reason for Visit: Patient Update [1234] Primary Visit Diagnosis:Essential hypertension [I10] Order(s):lisinopril (ZESTRIL) 5 mg tabletTake 1 tablet by mouth once daily.Disp: 30 tabletRfl: 5 BASIC METABOLIC PANEL [SQBMP] Order #: [id number] FUTURE Prescriptions as of 03/03/2024 - lisinopril [...] site*09/04/2007 07/29/2012 Routine general medical examination at [facility]*02/01/2009 09/07/2015 Essential hypertension [I10] 03/05/2009 Melanocytic [...] Encounter Status:Closed by FATOU RODRIGUEZ on 03/03/24 Normal [facility] 02-[facility]-2024 CNPN Telephone (4CQ) -------- HERIBERTO PEÑALOZA ([id number]) 1950 M NFR Date Time Provider Department [...] Fully Assessed Reason for Visit: Patient Question [1407] Prescriptions as of 02/27/2024 - amLODIPine (NORVASC) [...] 07/29/2012 [facility] at [facility]*02/01/2009 09/07/2015 Essential hypertension [I10] 03/05/2009 Melanocytic Nevi/ [...] Status:Closed by RAMONITA TREVINO on 02/27/24 Normal [facility] 25(OH)D3 SerPl-ncon 2023 25-hydroxyvitamin D3 [Mass/Vol] 71.2 ng/mL Normal 31.0-80.0 [facility] Comment on above: Order Comment: Speci men Type: BLOOD SPECIMENOrdering Facility: [facility] Address: [address] [place] [address] Performed By: #### 1 989-3 ####[facility] LABCLIA [id number] [place] [address] [place] CBC panel Auto (Bld)on 02-24 Erythrocyte distribution width (RBC) [Ratio] 14.5 % Normal 11.5-15.0 [facility] Comment on above: Order Comment: Speci men Type: BLOOD SPECIMENOrdering Facility: [facility] Address: [address] [place] [address] Performed By: #### 5 8410-2 ####[facility] [id number] [address] [place] Hematocrit (Bld) [Volume fraction] 45.3 % Normal 39.0-51.0 [facility] Comment on above: Order Comment: Speci men Type: BLOOD SPECIMENOrdering Facility: [facility] Address: [address] [place] [address] Performed By: #### 5 8410-2 ####[facility] [id number] [place] [address] [place] Hemoglobin (Bld) [Mass/Vol] 14.3 g/dL Normal 13.0-17.0 [facility] Comment on above: Order Comment: Speci men Type: BLOOD SPECIMENOrdering Facility: [facility] Address: [address] [place] [address] Performed By: #### 5 8410-2 ####[facility] HOS[facility]ITALGERARDO [id number] [address] MCH (RBC) [Entitic mass] 28.1 pg Normal 26.0-34.0 [facility] Comment on above: Order Comment: Speci men Type: BLOOD SPECIMENOrdering Facility: [facility] Address: [address] [place] [address] Performed By: #### 5 8410-2 ####[facility] [id number] [address] [place] MCHC (RBC) [Mass/Vol] 31.6 g/dL Normal 30.5-36.0 [facility] Comment on above: Order Comment: Speci men Type: BLOOD SPECIMENOrdering Facility: [facility] Address: [address] [place] [address] Performed By: #### 5 8410-2 ####[facility] [id number] [address] [place] MCV (RBC) [Entitic vol] 89.0 fL Normal 80.0-100.0 [facility] Comment on above: Order Comment: Speci men Type: BLOOD SPECIMENOrdering Facility: [facility] Address: [address] [place] [address] Performed By: #### 5 8410-2 ####[facility]ITALNCLI [id number] [address] [place] [facility] Nucleated RBC (Bld) [#/Vol] 10*3/uL Normal <0.01 [facility] Comment on above: Order Comment: Speci men Type: BLOOD SPECIMENOrdering Facility: [facility] Address: [address] [place] [address] Performed By: #### 5 8410-2 ####[facility] MERCEDESLIA [id number] [place] [address] [place] Platelet mean volume (Bld) [Entitic vol] 11.9 fL Normal 9.0-12.7 [facility] Comment on above: Order Comment: Speci men Type: BLOOD SPECIMENOrdering Facility: [facility] Address: [address] [place] [address] Performed By: #### 5 8410-2 ####[facility] KAILASHSUZIELIA [id number] [place] [address] [place] Platelets (Bld) [#/Vol] 157 10*3/uL Normal 150-400 [facility] Comment on above: Order Comment: Speci men Type: BLOOD SPECIMENOrdering Facility: [facility] Address: [address] [place] [address] Performed By: #### 5 8410-2 ####[facility] HOSPITALBILLYA [id number] [place] [address] [place] RBC (Bld) [#/Vol] 5.09 10*6/uL Normal 4.20-6.00 [facility] Comment on above: Order Comment: Speci men Type: BLOOD SPECIMENOrdering Facility: [facility] Address: [address] [place] [address] Performed By: #### 5 8410-2 ####[facility] KAILASHHARDWICKMANISHLIA [id number] [place] [address] [place] WBC (Bld) [#/Vol] 5.83 10*3/uL Normal 3.70-11.00 [facility] Comment on above: Order Comment: Speci men Type: BLOOD SPECIMENOrdering Facility: [facility] Address: [address] [place] [address] Performed By: #### 5 8410-2 ####[facility]ITALNCLIA [id number] [place] [id number] [facility] CNOVon 02-25-2024 CNOV Office Visit (INTMWS ) -------- HERIBERTO PEÑALOZA ([id number]) 1950 M NFR Date Time Provider Department [...] (Src) 98 (Temporal) Resp 20 Ht 5' 10.25" (1.78m) Wt 165 lb (74.8kg) BMI 23.52 kg/(m2). Vision Screening: Follows with optometry/ophthalmology Right: 20/40 Left: 20/ 20 Both: 20/30 Assessment/Plan Medicare annual wellness visit, subsequent (Z00.00) - Counseled on healthy diet and regular exercise - Fall avoidance information provided - Personalized prevention plan provided - Covid booster recommended. Piyush Rivera MD 02/25/2024 5:55 PM Signed This note was created using Needly. Subjective Heriberto Peñaloza is a 73 year [...] (Temporal) Resp 20 Ht 178.4 cm (5' 10.25") Wt 74.8 kg (165 lb) BMI 23.51 [...] is alert. (more content not included)... Normal [facility] Comprehensive metabolic 2000 panelon 02-25-2024 Albumin [Mass/Vol] 3.9 g/dL Normal 3.9-4.9 [facility] Comment on above: Order Comment: Speci men Type: BLOOD SPECIMENOrdering Facility: [facility] Address: [address] [place] [address] Performed By: #### 2 4323-8 ####[facility] [id number] [place] [address] [place] ALP [Catalytic activity/Vol] 89 U/L Normal 38-113 [facility] Comment on above: Order Comment: Speci men Type: BLOOD SPECIMENOrdering Facility: [facility] Address: [address] [place] [address] Performed By: #### 2 4323-8 ####[facility] [id number] [place] [address] [place] ALT [Catalytic activity/Vol] 10 U/L Normal 10-54 [facility] Comment on above: Order Comment: Speci men Type: BLOOD SPECIMENOrdering Facility: [facility] Address: [address] [place] [address] Performed By: #### 2 4323-8 ####[facility] WESTWNCLIA [id number] [place] [address] [place] Anion gap [Moles/Vol] 9 mmol/L Normal 8-15 [facility] Comment on above: Order Comment: Speci men Type: BLOOD SPECIMENOrdering Facility: [facility] Address: [address] [place] [address] Performed By: #### 2 4323-8 ####[facility] MILLROCIOWMANISHLIA [id number] [place] [address] [place] AST [Catalytic activity/Vol] 15 U/L Normal 14-40 [facility] Comment on above: Order Comment: Speci men Type: BLOOD SPECIMENOrdering Facility: [facility] Address: [address] [place] [address] Performed By: #### 2 4323-8 ####[facility]OSPITALMANISHLIA [id number] [place] [address] [place] Bilirubin [Mass/Vol] 0.7 mg/dL Normal 0.2-1.3 [facility] Comment on above: Order Comment: Speci men Type: BLOOD SPECIMENOrdering Facility: [facility] Address: [address] [place] [address] Performed By: #### 2 4323-8 ####[facility] KAILASHWNCLIA [id number] [place] [address] [place] Calcium [Mass/Vol] 8.9 mg/dL Normal 8.5-10.2 [facility] Comment on above: Order Comment: Speci men Type: BLOOD SPECIMENOrdering Facility: [facility] Address: [address] [place] [address] Performed By: #### 2 4323-8 ####[facility] WESTWNCLIA [id number] [place] [address] [place] Chloride [Moles/Vol] 107 mmol/L Normal 98-107 [facility] Comment on above: Order Comment: Speci men Type: BLOOD SPECIMENOrdering Facility: [facility] Address: [address] [place] [address] Performed By: #### 2 4323-8 ####[facility] [id number] [place] [address] [place] CO2 [Moles/Vol] 22 mmol/L Normal 22-30 [facility] Comment on above: Order Comment: Speci men Type: BLOOD SPECIMENOrdering Facility: [facility] Address: [address] [place] [address] Performed By: #### 2 4323-8 ####[facility] [id number] [place] [address] [place] Creatinine [Mass/Vol] 0.97 mg/dL Normal 0.73-1.22 [facility] Comment on above: Order Comment: Speci men Type: BLOOD SPECIMENOrdering Facility: [facility] Address: [address] [place] [address] Performed By: #### 2 4323-8 ####[facility] [id number] [address] [place] Creatinine and Glomerular filtration rate.predicted panel (S/P/Bld) 82 mL/min/1.73m??? Normal >=60 [facility] Comment on above: Order Comment: Speci men Type: BLOOD SPECIMENOrdering Facility: [facility] Address: [address] [place] [address] Result Comment: Yaa mated Glomerular Filtration Rate [...] GFR. Performed By: #### 2 4323-8 ####[facility] WESTWNCLIA [id number] [place] [address] [place] Glucose [Mass/Vol] 102 mg/dL High 74-99 [facility] Comment on above: Order Comment: Speci men Type: BLOOD SPECIMENOrdering Facility: [facility] Address: [address] [place], [place] [address] Result Comment: The [place] Diabetes Association (ADA) provides guidance for cutoff [...] Standards of Medical Care in Diabetes 2016, [place] Diabetes Association. Diabetes Care. 2016.39(Suppl 1). Performed By: #### 2 4323-8 ####[facility]ITALNCLIA [id number] [place] [address] [place] Potassium [Moles/Vol] 3.8 mmol/L Normal 3.7-5.1 [facility] Comment on above: Order Comment: Speci men Type: BLOOD SPECIMENOrdering Facility: [facility] Address: [address] [place] [address] Performed By: #### 2 4323-8 ####[facility]ITALNCLIA [id number] [place] [address] [place] Protein [Mass/Vol] 6.5 g/dL Normal 6.3-8.0 [facility] Comment on above: Order Comment: Speci men Type: BLOOD SPECIMENOrdering Facility: [facility] Address: [address] [place] [address] Performed By: #### 2 4323-8 ####[facility] [id number] [place] [address] [place] Sodium [Moles/Vol] 138 mmol/L Normal 136-144 [facility] Comment on above: Order Comment: Speci men Type: BLOOD SPECIMENOrdering Facility: [facility] Address: [address] [place] [address] Performed By: #### 2 4323-8 ####[facility] [id number] [place] [address] [place] Urea nitrogen [Mass/Vol] 22 mg/dL Normal 9-24 [facility] Comment on above: Order Comment: Speci men Type: BLOOD SPECIMENOrdering Facility: [facility] Address: [address] [place] [address] Performed By: #### 2 4323-8 ####[facility] [id number] [place] [address] [place] HbA1c (Bld)on 02-25-2024 Average glucose Estimated from glycated hemoglobin (Bld) [Mass/Vol] 114 mg/dL Normal [facility] Comment on above: Order Comment: Speci men Type: BLOOD SPECIMENOrdering Facility: [facility] Address: [address] [place] [address] Result Comment: eAG: (Estimated average glucose) is a calculated value from HgbA1c and is players club representative of the average blood glucose level in the last 2-3 month period. Performed By: #### 5 5454-3 ####[facility] LABCLIA [id number] [place] [address] [place] HbA1c (Bld) [Mass fraction] 5.6 % Normal 4.3-5.6 [facility] Comment on above: Order Comment: Speci men Type: BLOOD SPECIMENOrdering Facility: [facility] Address: [address] [place] [address] Result Comment: Amer ican Diabetes Association guidelines indicate that patients with HgbA1c in the range 5.7-6.4% are at increased risk for development of diabetes, and intervention by lifestyle modification may be beneficial. HgbA1c greater or equal to 6.5% is considered diagnostic of diabetes. Performed By: #### 5 5454-3 ####[facility] LABCLIA [id number] [place] [address] [place] Lipid 1996 panelon 4 Cholesterol [Mass/Vol] 155 mg/dL Normal <200 [facility] Comment on above: Order Comment: Speci men Type: BLOOD SPECIMENOrdering Facility: [facility] Address: [address] [place] [address] Result Comment: <200 mg/dL, Desirable 200-239 mg/dL, Borderline high >239 mg/dL, High Performed By: #### 2 132-9 ####[facility] LABCLIA [id number] [address] [place]#### [address]-5 ####[facility] LABCLIA [id number] [address] [facility] [id number] [address] [place] Cholesterol in HDL [Mass/Vol] 64 mg/dL Normal >39 [facility] Comment on above: Order Comment: Lioni men Type: BLOOD SPECIMENOrdering Facility: [facility] Address: [address] [place] [address] Result Comment: 40-5 9 mg/dL, Acceptable >59 mg/dL, High: Negative risk factor for coronary heart disease <40 mg/dL, Low: Positive risk factor for coronary heart disease Performed By: #### 2 132-9 ####[facility] [id number] [place] [address] [place]#### 52622-4 ####[facility] [id number] [address] [id number] [address] STATES [facility] Cholesterol in LDL [Mass/Vol] 79 mg/dL Normal <100 [facility] Comment on above: Order Comment: Speci men Type: BLOOD SPECIMENOrdering Facility: [facility] Address: [address] [place] [address] Result Comment: <100 mg/dL, Optimal 100-129 mg/dL, Near optimal/above optimal 130-159 mg/dL, Borderline high 160-189 mg/dL, High >189 mg/dL, Very high Secondary prevention optimal LDL Cholesterol levels are recommended to be < 70 mg/dL Performed By: #### 2 132-9 ####[facility] [id number] [address] STATES [place]#### 89535-4 ####[facility] [id number] [address] [id number] [place] [address] [place] Cholesterol in LDL/Cholesterol in HDL [Mass ratio] 1.23 {ratio} Normal <2.54 [facility] Comment on above: Order Comment: Speci men Type: BLOOD SPECIMENOrdering Facility: [facility] Address: [address] [place] [address] Result Comment: Refnik bills: 1. National Cholesterol Education Program ATP III Guideline At-A-Glance Quick Desk Reference: National Heart, Lung, and Blood [place]. National Institutes of Health. 2001: NIH Publication No. 01-3305. 2. An International Atherosclerosis Society position paper: global recommendations for the management of dyslipidemia: executive summary, Atherosclerosis. 2014: 232(2):410-413. Performed By: #### 2 132-9 ####[facility] [id number] [address] STATES [place]#### 07763-4 ####[facility] [id number] [address] [id number] [address] [place] Cholesterol in VLDL [Mass/Vol] 12 mg/dL Normal <30 [facility] Comment on above: Order Comment: Speci men Type: BLOOD SPECIMENOrdering Facility: [facility] Address: [address] [place] [address] Performed By: #### 2 132-9 ####[facility] [id number] [place] [address] [place]#### 76686-3 ####[facility] [id number] [place] [address] [place] [facility] [id number] [place] [address] [place] Cholesterol non HDL [Mass/Vol] 91 mg/dL Normal <130 [facility] Comment on above: Order Comment: Speci men Type: BLOOD SPECIMENOrdering Facility: [facility] Address: [address] [place] [address] Result Comment: <130 mg/dL, Optimal 130-159 mg/dL, Near optimal/above optimal 160-189 mg/dL, Borderline high 190-219 mg/dL, High >219 mg/dL, Very high Secondary prevention optimal non HDL Cholesterol levels are recommended to be <100 mg/dL Performed By: #### 2 132-9 ####[facility] [id number] [place] [address] [place]#### 83475-7 ####[facility] [id number] [place] [address] [place] [facility] [id number] [place] [id number] [place] Cholesterol.total/Frieda sterol in HDL [Mass ratio] 2.42 {ratio} Normal <5.10 [facility] Comment on above: Order Comment: Speci men Type: BLOOD SPECIMENOrdering Facility: [facility] Address: [address] [place] [address] Performed By: #### 2 132-9 ####[facility] [id number] [place] [address] [place]#### 88666-6 ####[facility] [id number] [address] STATES OF [facility] [id number] [address] STATES [place] FASTING TIME 12 hrs Normal [facility] Comment on above: Order Comment: Speci men Type: BLOOD SPECIMENOrdering Facility: [facility] Address: [address] [place] [address] Performed By: #### 2 132-9 ####[facility] [id number] [place] [address] [place]#### 39414-2 ####[facility] [id number] [address] STATES OF [facility] [id number] [address] [place] Triglyceride [Mass/Vol] 61 mg/dL Normal <150 [facility] Comment on above: Order Comment: Speci men Type: BLOOD SPECIMENOrdering Facility: [facility] Address: [address] [place], [place] [id number] Result Comment: <150 mg/dL, Normal 150-199 mg/dL, Borderline high 200-499 mg/dL, High >499 mg/dL, Very high Performed By: #### 2 132-9 ####[facility] [id number] [address] OF [place]#### 71683-7 ####[facility] LABIA [id number] [address] [id number] [place] [address] [place] Vit B12 [facility] 02-24- 024 Cobalamin (Vitamin B12) [Mass/Vol] 378 pg/mL Normal 232-1245 [facility] Comment on above: Order Comment: Speci men Type: BLOOD SPECIMENOrdering Facility: [facility] Address: [address] [place] [address] Performed By: #### 2 132-9 ####[facility] [id number] [address] STATES [place]#### 63641-4 ####[facility] [id number] [address] [id number] [address] STATES OF [facility] 02-04-2024 [facility] Nurse Visit (FAMPWS) -------- HERIBERTO PEÑALOZA ([id number]) 1950 M NFR Date Time Provider Department 02/04/24 9:15 AM [place] NURSE BRENNONPWS During your visit today, we recorded the [...] site*09/04/2007 07/29/2012 Routine general medical examination at [facility]*02/01/2009 09/07/2015 Essential hypertension [I10] 03/05/2009 Melanocytic [...] Status:Closed by RAMONITA TREVINO on 02/04/24 Normal [facility] No Panel InformationOrdered By: Torsten Gregg on 05-07-2023 Prostate Specific Antigen Total 6.23 ng/mL 0.0-4.0 [facility] Comment on above: This test was perfor med using the TPSA assay method for theDimension chemistry system. Values obtained with differentassay methods cannot be used interchangably.When changing PSA assays in the course of monitoring apatient, additional sequential testing should be carriedout to confirm baseline values. Comprehensive metabolic 2000 panelon 02-09-2023 Albumin [Mass/Vol] 4.1 g/dL 3.9 - 4.9 g/dL [facility] ALP [Catalytic activity/Vol] 91 U/L 38 - 113 U/L [facility] ALT [Catalytic activity/Vol] 9 U/L Low 10 - 54 U/L [facility] Anion gap [Moles/Vol] 8 mmol/L Low 9 - 18 mmol/L [facility] AST [Catalytic activity/Vol] 13 U/L Low 14 - 40 U/L [facility] Bilirubin [Mass/Vol] 0.7 mg/dL 0.2 - 1 .3 mg/dL [facility] Calcium [Mass/Vol] 9.0 mg/dL 8.5 - 10. 2 mg/dL [facility] Chloride [Moles/Vol] 105 mmol/L 97 - 10 5 mmol/L [facility] CO2 [Moles/Vol] 27 mmol/L 22 - 30 mmol/L [facility] Creatinine [Mass/Vol] 1.06 mg/dL 0.73 - 1.22 mg/dL [facility] Estimated Glomerular Filtration Rate 75 mL/min/1.73m >=60 mL/min/1.73m [facility] Glucose [Mass/Vol] 166 mg/dL High 74 - 99 mg/dL [facility] Potassium [Moles/Vol] 3.8 mmol/L 3.7 - 5.1 mmol/L [facility] Protein [Mass/Vol] 6.3 g/dL 6.3 - 8.0 g/dL [facility] Sodium [Moles/Vol] 140 mmol/L 136 - 144 mmol/L [facility] Urea nitrogen [Mass/Vol] 20 mg/dL 9 - 24 mg/dL [facility] No Panel Informationon 04-20 Prostate Specific Antigen Total 6.14 ng/mL 0.0-4.0 [facility] Work Phone: Comment on above: This test was perfor med using the TPSA assay method for the[employer] chemistry system. Values obtained with differentassay methods cannot be used interchangably.When changing PSA assays in the course of monitoring apatient, additional sequential testing should be carriedout to confirm baseline values. XR CHEST 2V FRONTAL/LATon [facility] XR Chest PA and Lateralon IMPRESSION: No acute radiographic abnormality. Aerial Applicator Pilot: JOVITA Transcribe Date/Time: Jan 11 2022 9:50A Dictated by : CORNELL JAMISON MD This examination was interpreted and the report reviewed and electronically signed by: CORNELL JAMISON MD on Jan 11 2022 9:51AM EST ZZZ_DO_NOT_ USE_DIVISIO N OF RADIOLOGY * * *Final Report* * [...] cardiomediastinal silhouette. Bones and soft tissues: Unremarkable. ZZZ_DO_NOT_ USE_DIVISIO N OF RADIOLOGY Provider, [facility] - 01/11/2022 * * *Final Report* [...] Unremarkable. IMPRESSION IMPRESSION: No acute radiographic abnormality. Aerial Applicator Pilot: JOVITA Transcribe Date/Time: Jan 11 2022 9:50A Dictated by : CORNELL JAMISON MD This examination was interpreted and the report reviewed and electronically signed by: CORNELL JAMISON MD on Jan 11 2022 9:51AM EST [facility] Radiology Study observation (narrative) Alanis strong [facility] XR Chest PA and LateralOrder ed By: [facility] Provider on 01-11-2022 [facility] Vital Signs Date Time Vital Sign Value Performing Clinician Facility 02-15-2025 10:12-0400 Body temperature 98.7 [degF] Dr. Piyush Rivera MD Work Phone: 1(527)[phone] [place] [address] 02-15-2025 10:12-0400 Diastolic blood pressure 78 mm[Hg] Dr. Piyush Rivera MD Work Phone: 5(642)528-695150 [place] [address] 02-15-2025 10:12-0400 Heart rate 78 /min Dr. Piyush Rivera MD Work Phone: 0(064)043-810450 [place] [address] 02-15-2025 10:12-0400 Respiratory rate 16 /min Dr. Piyush Rivera MD Work Phone: 8(921)447-853050 [place] [address] 02-15-2025 10:12-0400 SaO2% (BldA) [Mass fraction] 99 % Dr. Piyush Rivera MD Work Phone: 4(375)519-212650 [place] [address] 02-15-2025 10:12-0400 Systolic blood pressure 146 mm[Hg] Dr. Piyush Rivera MD Work Phone: 8(440)153-251301 [place] [address] 02-15-2025 08:23-0400 Body height 180.[address] Piyush Rivera MD Work Phone: 3(271)678-005150 [place] [address] 02-15-2025 08:23-0400 Body mass index (BMI) [Ratio] 23.3 kg/m2 Dr. Piyush Rivera MD Work Phone: 6(803)509-474150 [place] [address] 02-15-2025 08:23-0400 Body weight 75.[address] Piyush Rivera MD Work Phone: 0(571)074-335550 [place] [address] 11-25-2024 08:18-0400 Body mass index (BMI) [Ratio] 23.51 kg/m2 Negra Ugalde APRN.CNP Work Phone: [facility] 11-25-2024 08:18-0400 Body temperature 98.71 [degF] Negra gUalde CCNP.CHILD WELFARE SOCIAL WORKER Work Phone: [facility] 11-25-2024 08:18-0400 Body weight 74.84 kg Negra Ugalde CCNP.CHILD WELFARE SOCIAL WORKER Work Phone: [facility] 11-25-2024 08:18-0400 Diastolic blood pressure 80 mm[Hg] Negra Ugalde CCNP.CHILD WELFARE SOCIAL WORKER Work Phone: [facility] 11-25-2024 08:18-0400 Heart rate 74 /min Negra Ugalde CCNP.CHILD WELFARE SOCIAL WORKER Work Phone: [facility] 11-25-2024 08:18-0400 Respiratory rate 14 /min Negra Ugalde CCNP.CHILD WELFARE SOCIAL WORKER Work Phone: [facility] 11-25-2024 08:18-0400 SaO2% (BldA) [Mass fraction] 98 % Negra Ugalde CCNP.CHILD WELFARE SOCIAL WORKER Work Phone: [facility] 11-25-2024 08:18-0400 Systolic blood pressure 132 mm[Hg] Negra Ugalde CCNP.CHILD WELFARE SOCIAL WORKER Work Phone: [facility] 08-28-2024 13:33-0500 Body mass index (BMI) [Ratio] 23.78 kg/m2 Piyush Rivera MD Work Phone: [facility] 08-28-2024 13:33-0500 Body temperature 98.2 [degF] Piyush Rivera MD Work Phone: [facility] 08-28-2024 13:33-0500 Body weight 75.7 kg Piyush Rivera MD Work Phone: [facility] 08-28-2024 13:33-0500 Diastolic blood pressure 68 mm[Hg] Piyush Rivera MD Work Phone: [facility] 08-28-2024 13:33-0500 Heart rate 72 /min Piyush Rivera MD Work Phone: [facility] 08-28-2024 13:33-0500 Respiratory rate 18 /min Piyush Rivera MD Work Phone: [facility] 08-28-2024 13:33-0500 Systolic blood pressure 118 mm[Hg] Piyush Rivera MD Work Phone: [facility] 07-07-2024 09:05-0500 Diastolic blood pressure 70 mm[Hg] Mi Nurse Work Phone: [facility] 07-07-2024 09:05-0500 Heart rate 83 /min Mi Nurse Work Phone: [facility] 07-07-2024 09:05-0500 Systolic blood pressure 135 mm[Hg] Mi Nurse Work Phone: [facility] 05-19-2024 15:00-0400 Diastolic blood pressure 72 mm[Hg] Piyush Rivera MD Work Phone: [facility] 05-19-2024 15:00-0400 Heart rate 71 /min Piyush Rivera MD Work Phone: [facility] 05-19-2024 15:00-0400 Systolic blood pressure 135 mm[Hg] Piyush Rivera MD Work Phone: [facility] 05-19-2024 14:56-0400 Body mass index (BMI) [Ratio] 23.59 kg/m2 Piyush Rivera MD Work Phone: [facility] 05-19-2024 14:56-0400 Body temperature 97 [degF] Piyush Rivera MD Work Phone: [facility] 05-19-2024 14:56-0400 Body weight 75.1 kg Piyush Rivera MD Work Phone: [facility] 05-19-2024 14:56-0400 SaO2% (BldA) [Mass fraction] 98 % Piyush Rivera MD Work Phone: [facility] 04-16-2024 08:30-0400 Diastolic blood pressure 78 mm[Hg] Piyush Rivera MD Work Phone: [facility] 04-16-2024 08:30-0400 Heart rate 69 /min Piyush Rivera MD Work Phone: [facility] 04-16-2024 08:30-0400 Systolic blood pressure 146 mm[Hg] Piyush Rivera MD Work Phone: [facility] 04-16-2024 08:29-0400 Body mass index (BMI) [Ratio] 23.12 kg/m2 Piyush Rivera MD Work Phone: [facility] 04-16-2024 08:29-0400 Body temperature 97.5 [degF] Piyush Rivera MD Work Phone: [facility] 04-16-2024 08:29-0400 Body weight 73.6 kg Piyush Rivera MD Work Phone: [facility] 04-16-2024 08:29-0400 Respiratory rate 20 /min Piyush Rivera MD Work Phone: [facility] 04-14-2024 14:54-0400 Body mass index (BMI) [Ratio] 23.78 kg/m2 Ameya Agudelo MD Work Phone: [facility] 04-14-2024 14:54-0400 Body temperature 98.2 [degF] Ameya Agudelo MD Work Phone: [facility] 04-14-2024 14:54-0400 Body weight 75.7 kg Ameya Agudelo MD Work Phone: [facility] 04-14-2024 14:54-0400 Diastolic blood pressure 80 mm[Hg] Ameya Agudelo MD Work Phone: [facility] 04-14-2024 14:54-0400 Heart rate 97 /min Ameya Agudelo MD Work Phone: [facility] 04-14-2024 14:54-0400 Respiratory rate 18 /min Ameya Agudelo MD Work Phone: [facility] 04-14-2024 14:54-0400 SaO2% (BldA) [Mass fraction] 97 % Ameya Agudelo MD Work Phone: [facility] 04-14-2024 14:54-0400 Systolic blood pressure 140 mm[Hg] Ameya Agudelo MD Work Phone: [facility] 04-07-2024 09:26-0400 Diastolic blood pressure 72 mm[Hg] Piyush Rivera MD Work Phone: [facility] Comment on above: BP Daniel average 04-07-2024 09:26-0400 Heart rate 73 /min Piyush Rivera MD Work Phone: [facility] 04-07-2024 09:26-0400 Systolic blood pressure 145 mm[Hg] Piyush Rivera MD Work Phone: [facility] Comment on above: BP Daniel average 03-03-2024 10:28-0400 Diastolic blood pressure 73 mm[Hg] Piyush Rivera MD Work Phone: [facility] 03-03-2024 10:28-0400 Systolic blood pressure 146 mm[Hg] Piyush Rivera MD Work Phone: [facility] 02-25-2024 16:46-0400 Diastolic blood pressure 74 mm[Hg] Piyush Rivera MD Work Phone: [facility] 02-25-2024 16:46-0400 Heart rate 69 /min Piyush Rievra MD Work Phone: [facility] 02-25-2024 16:46-0400 Systolic blood pressure 156 mm[Hg] Piyush Rivera MD Work Phone: [facility] 02-25-2024 16:35-0400 Body height 178.4 cm Piyush Rivera MD Work Phone: [facility] 02-25-2024 16:35-0400 Body mass index (BMI) [Ratio] 23.51 kg/m2 Piyush Rivera MD Work Phone: [facility] 02-25-2024 16:35-0400 Body temperature 98.01 [degF] Piyush Rivera MD Work Phone: [facility] 02-25-2024 16:35-0400 Body weight 74.84 kg Piyush Rivera MD Work Phone: [facility] 02-25-2024 16:35-0400 Respiratory rate 20 /min Piyush Rivera MD Work Phone: [facility] 05-25-2023 09:51-0400 Body temperature 97.11 [degF] Karey Athy PA-C Work Phone: [facility] 05-25-2023 09:51-0400 Body weight 77.2 kg Karey Athy PA-C Work Phone: [facility] 05-25-2023 09:51-0400 Diastolic blood pressure 70 mm[Hg] Karey Athy PA-C Work Phone: [facility] 05-25-2023 09:51-0400 Heart rate 80 /min Karey Athy PA-C Work Phone: [facility] 05-25-2023 09:51-0400 Respiratory rate 18 /min Karey Athy PA-C Work Phone: [facility] 05-25-2023 09:51-0400 SaO2% (BldA) [Mass fraction] 97 % Karey Athy PA-C Work Phone: [facility] 05-25-2023 09:51-0400 Systolic blood pressure 120 mm[Hg] Karey Athy PA-C Work Phone: [facility] 02-12-2023 13:25-0400 Body height 178.4 cm Piyush Rivera MD Work Phone: [facility] 02-12-2023 13:25-0400 Body weight 76.2 kg Piyush Rivera MD Work Phone: [facility] 02-12-2023 13:25-0400 Diastolic blood pressure 68 mm[Hg] Piyush Rivera MD Work Phone: [facility] 02-12-2023 13:25-0400 Heart rate 80 /min Piyush Rivera MD Work Phone: [facility] 02-12-2023 13:25-0400 Respiratory rate 16 /min Piyush Rivera MD Work Phone: [facility] 02-12-2023 13:25-0400 Systolic blood pressure 130 mm[Hg] Piyush Rivera MD Work Phone: [facility] 07-14-2022 10:19-0500 Diastolic blood pressure 66 mm[Hg] Piyush Rivera MD Work Phone: [facility] 07-14-2022 10:19-0500 Systolic blood pressure 132 mm[Hg] Piyush Rivera MD Work Phone: [facility] 01-11-2022 09:28-0400 Diastolic blood pressure 68 mm[Hg] Piyush Rivera MD Work Phone: [facility] 01-11-2022 09:28-0400 Systolic blood pressure 130 mm[Hg] Piyush Rivera MD Work Phone: [facility] 01-11-2022 08:50-0400 Body height 181.9 cm Piyush Rivera MD Work Phone: [facility] 01-11-2022 08:50-0400 Body temperature 97.9 [degF] Piyush Rivera MD Work Phone: [facility] 01-11-2022 08:50-0400 Body weight 78.02 kg Piyush Rivera MD Work Phone: [facility] 01-11-2022 08:50-0400 Heart rate 76 /min Piyush Rivera MD Work Phone: [facility] 01-11-2022 08:50-0400 Respiratory rate 12 /min Piyush Rivera MD Work Phone: [facility] Encounters Encounter Date Encounter Type Care Provider Facility Start: 02-25-2025 ambulatory Torsten gongora:[facility] Start: 02-24-2025 End: 02-24-2025 ambulatory Nikki Couch MA [facility] Start: 02-24-2025 End: 02-24-2025 Patient encounter procedure Nikki Couch MA [facility] Comment on above: Population Health Na [facility] Out[facility] Start: 02-23-2025 Encounter for preprocedural cardiovascular examination Torsten Gregg [facility] Start: 02-19-2025 End: 02-19-2025 Refill Piyush Rivera MD Work Phone: [facility] Comment on above: Refill Request Start: 02-15-2025 End: 02-15-2025 Emergency department patient visit Dr. Piyush Rivera MD Work Phone: -Emergency Department Work Phone: Start: 02-02-2025 End: 02-02-2025 Nursing evaluation of patient and report Mi Nurse Work Phone: [facility] Comment on above: Vitamin B12 deficien cy (Primary Dx) Start: 02-02-2025 End: 02-02-2025 ambulatory PIYUSH RIVERA Facility:[facility] Start: 01-08-2025 End: 01-08-[address] Torsten Gregg MD -Nuclear Medicine [facility] Work Phone: Start: 01-08-2025 End: 01-08-2025 ambulatory Piyush Rivera Facility:[facility] Start: 01-05-2025 End: 01-05-[address] Piyush Rivera MD Work Phone: [facility] Work Phone: Start: 01-05-2025 End: 01-05-[address] Torsten Gregg MD -Laboratory Specimen Work Phone: Start: 01-05-2025 End: 01-05-2025 ambulatory PIYUSH RIVERA Facility:[facility] Start: 01-05-2025 End: 01-05-2025 Nursing evaluation of patient and report Mi Nurse Work Phone: [facility] Comment on above: Pernicious anemia (P rimary Dx) Start: 01-05-2025 End: 01-05-2025 ambulatory Torsten Gregg Facility:[facility] Start: 12-25-2024 End: 12-26-2024 Refill Piyush Rivera MD Work Phone: [facility] Comment on above: Refill Request ([place] [facility] to local [facility]) Start: 12-25-2024 End: 12-25-[address] Torsten Gregg MD [facility] Work Phone: Start: 12-25-2024 End: 12-25-2024 ambulatory Piyush Rivera Facility:[facility] Start: 12-02-2024 End: 12-02-2024 Nursing evaluation of patient and report Mi Nurse Work Phone: [facility] Comment on above: Vitamin B12 deficien cy (Primary Dx) Start: 12-02-2024 End: 12-02-2024 ambulatory PIYUSH RIVERA Facility:[facility] Start: 11-25-2024 End: 11-25-2024 ambulatory NEGRA UGALDE Facility:[facility] Start: 11-25-2024 End: 11-25-2024 Patient encounter procedure Negra Ugalde CCNP.CHILD WELFARE SOCIAL WORKER Work Phone: Internal [facility] Comment on above: Viral URI with cough (Primary Dx) Start: 11-10-2024 End: 11-10-2024 ambulatory PIYUSH RIVERA Facility:[facility] Start: 11-06-2024 End: 11-06-[address] Piyush Rivera MD Work Phone: [facility] Work Phone: Start: 11-06-2024 End: 11-06-[address] Torsten Gregg MD -Laboratory Work Phone: Start: 11-06-2024 End: 11-06-2024 ambulatory Torsten Gregg [facility] [facility] Start: 10-28-2024 End: 10-28-[address] Piyush Rivera MD Work Phone: [facility] Work Phone: Start: 10-28-2024 End: 10-28-2024 Patient encounter procedure [facility] [place] [facility] Work Phone: Start: 10-28-2024 End: 10-28-2024 ambulatory [place] Facility:[facility] Start: 10-13-2024 End: 10-13-2024 ambulatory PIYUSH RIVERA Facility:[facility] Start: 10-13-2024 End: 10-13-2024 Nursing evaluation of patient and report Mi Nurse Work Phone: [facility] [place] Comment on above: Pernicious anemia (P rimary Dx) Start: 09-24-2024 End: 09-25-2024 Telephone encounter Piyush Rivera MD Work Phone: Internal Medicine [place] Comment on above: Orders Start: 09-08-2024 End: 09-08-2024 ambulatory PIYUSH RIVERA Facility:[facility] Start: 09-08-2024 End: 09-08-2024 Nursing evaluation of patient and report Mi Nurse Work Phone: [facility] [place] Comment on above: Pernicious anemia (P rimary Dx) Start: 08-28-2024 End: 08-28-2024 ambulatory PIYUSH RIVERA Facility:[facility] Start: 08-28-2024 End: 08-28-2024 Office outpatient visit 15 minutes Piuysh Rivera MD Work Phone: Internal Medicine [place] Comment on above: Essential hypertensi on (Primary Dx); Encounter for immunization; Pernicious anemia; Vitamin D deficiency Start: 08-11-2024 End: 08-11-2024 ambulatory PIYUSH RIVERA Facility:[facility] Start: 08-11-2024 End: 08-11-2024 Nursing evaluation of patient and report Mi Nurse Work Phone: Family [facility] [place] Comment on above: Pernicious anemia (P rimary Dx) Start: 07-07-2024 End: 07-07-2024 Nursing evaluation of patient and report Mi Nurse Work Phone: Family Medicine [place] Comment on above: Pernicious anemia (P rimary Dx) Start: 07-07-2024 End: 07-07-2024 ambulatory PIYUSH RIVERA Facility:[facility] Start: 06-09-2024 End: 06-09-2024 ambulatory PIYUSH RIVERA Facility:[facility] Start: 06-09-2024 End: 06-10-2024 Nursing evaluation of patient and report Mi Nurse Work Phone: [facility] [place] Comment on above: Pernicious anemia (P rimary Dx) Refill Request Start: 05-19-2024 End: 05-19-2024 ambulatory PIYUSH RIVERA Facility:[facility] Start: 05-19-2024 End: 05-19-2024 Office outpatient visit 15 minutes Piyush Rivera MD Work Phone: Internal Medicine [place] Comment on above: Essential hypertensi on (Primary Dx); Need for influenza vaccination; Aneurysm of ascending aorta without rupture (HCC) Start: 05-19-2024 End: 05-19-2024 Telephone encounter Piyush Rivera MD Work Phone: Internal Medicine [place] Comment on above: Results; chest xray results Start: 05-14-2024 End: 05-14-2024 ambulatory PIYUSH RIVERA Facility:[facility] Start: 05-14-2024 End: 05-14-2024 Subsequent hospital visit by physician Xr [facility] Work Phone: Radiology Comment on above: Pleural effusion [J9 0] Start: 05-12-2024 End: 05-14-2024 Telephone encounter Piyush Rivera MD Work Phone: Internal Medicine [place] Comment on above: blood pressure updat e Start: 05-12-2024 End: 05-12-2024 ambulatory PIYUSH RIVERA Facility:[facility] Start: 05-12-2024 End: 05-12-2024 Nursing evaluation of patient and report Mi Nurse Work Phone: Family Medicine [place] Comment on above: Pernicious anemia (P rimary Dx) Start: 04-24-2024 End: 04-24-2024 ambulatory PIYUSH RIVERA Facility:[facility] Start: 04-16-2024 End: 04-16-2024 ambulatory PIYUSH RIVERA Facility:[facility] Start: 04-16-2024 End: 04-16-2024 Office outpatient visit 25 minutes Piyush Rivera MD Work Phone: Internal Medicine [place] Comment on above: COVID-19 (Primary Dx ); Pleural effusion; Abnormal blood chemistry; Essential hypertension; Abnormal EKG Start: 04-15-2024 End: 04-15-2024 Telephone encounter Suzanne GOULD Work Phone: [facility] Comment on above: Results Start: 04-14-2024 End: 04-14-2024 Subsequent hospital visit by physician Xr [facility] Work Phone: Radiology Comment on above: Acute cough [R05.1] Start: 04-14-2024 End: 04-14-2024 ambulatory AMEYA AGUDELO Facility:[facility] Start: 04-14-2024 End: 04-14-2024 Office outpatient visit [...] Start: 04-07-2024 End: 04-07-2024 ambulatory PIYUSH RIVERA Facility:[facility] Start: 03-03-2024 Telephone encounter Piyush rudd MD Work Phone: Internal Medicine [place] Comment on above: Patient Update Start: 03-03-2024 End: 03-03-2024 ambulatory PIYUSH RIVERA Facility:[facility] Start: 03-03-2024 End: 03-03-2024 Nursing evaluation of patient and report Mi Nurse Work Phone: Family Medicine [place] Comment on above: Pernicious anemia (P rimary Dx) Start: 02-26-2024 Telephone encounter Piyush rudd MD Work Phone: [address] [place] [address] Comment on above: Patient Question Start: 02-25-2024 End: 02-25-2024 ambulatory PIYUSH RIVERA Facility:[facility] Start: 02-25-2024 End: 02-25-2024 Patient encounter procedure Piyush Rivera MD Work Phone: Internal Medicine [place] Comment on above: Medicare annual well ness visit, subsequent (Primary Dx); Essential hypertension; Pernicious anemia; Venous insufficiency of both lower extremities; Need for COVID-19 vaccine; Vitamin D deficiency Start: 02-25-2024 End: 02-25-2024 ambulatory NEGRA UGALDE Facility:[facility] Start: 02-20-2024 Refill Piyush boss MD Work Phone: Internal Medicine [place] Comment on above: Refill Request Start: 02-04-2024 End: 02-04-2024 ambulatory PIYUSH RIVERA Facility:[facility] Start: 02-04-2024 End: 02-04-2024 Nursing evaluation of patient and report Mi Nurse Work Phone: Family Medicine [place] Comment on above: Pernicious anemia (P rimary Dx) Start: 01-30-2024 Refill Piyush boss MD Work Phone: [facility] [place] Comment on above: Refill Request Medication Problem Start: 12-31-2023 End: 12-31-2023 Nursing evaluation of patient and report Mi Nurse Work Phone: Family Medicine [place] Comment on above: Pernicious anemia (P rimary Dx) Start: 11-26-2023 End: 11-26-2023 Nursing evaluation of patient and report Mi Nurse Work Phone: [facility] Comment on above: Pernicious anemia (P rimary Dx) Start: 10-29-2023 End: 10-29-2023 Nursing evaluation of patient and report Mi Nurse Work Phone: [facility] [place] Comment on above: Pernicious anemia (P rimary Dx) Start: 10-01-2023 End: 10-01-2023 Nursing evaluation of patient and report Mi Nurse Work Phone: [facility] Comment on above: Pernicious anemia (P rimary Dx) Start: 09-28-2023 Telephone encounter Piyush rudd MD Work Phone: Internal [facility] Comment on above: Orders Start: 07-02-2023 End: 07-02-2023 Nursing evaluation of patient and report Mi Nurse Work Phone: [facility] Comment on above: Pernicious anemia (P rimary Dx) Start: 05-25-2023 End: 05-25-2023 Patient encounter procedure Karey Staton PA-C Work Phone: [facility] Comment on above: Leg wound, left, ini tial encounter (Primary Dx) Start: 05-07-2023 End: 05-07-2023 ambulatory [facility] Work Phone: Start: 05-07-2023 End: 05-07-2023 Patient encounter procedure [facility] Work Phone: Start: 04-02-2023 End: 04-02-2023 Nursing evaluation of patient and report Mi Nurse Work Phone: [facility] Comment on above: Pernicious anemia (P rimary Dx) Start: 02-12-2023 End: 02-12-2023 Patient encounter procedure Piyush Rivera MD Work Phone: [facility] Comment on above: Medicare annual well ness visit, subsequent (Primary Dx); Pernicious anemia; Essential hypertension; Vitamin D deficiency; Numbness of left thumb; Impacted cerumen of left ear; Hyperglycemia Start: 02-09-2023 Telephone encounter Leidy Granados MA Internal Medicine [place] Comment on above: Orders Start: 01-29-2023 End: 01-29-2023 Nursing evaluation of patient and report Mi Nurse Work Phone: [facility] [place] Comment on above: Pernicious anemia (P rimary Dx) Start: 12-25-2022 End: 12-25-2022 Nursing evaluation of patient and report Mi Nurse Work Phone: [facility] [place] Comment on above: Pernicious anemia (P rimary Dx) Start: 11-27-2022 End: 11-27-2022 Nursing evaluation of patient and report Mi Nurse Work Phone: [facility] [place] Comment on above: Pernicious anemia (P rimary Dx) Start: 10-30-2022 End: 10-30-2022 Nursing evaluation of patient and report Mi Nurse Work Phone: [facility] [place] Comment on above: Pernicious anemia (P rimary Dx) Start: 10-02-2022 End: 10-02-2022 Nursing evaluation of patient and report Mi Nurse Work Phone: [facility] [place] Comment on above: Pernicious anemia (P rimary Dx) Start: 09-26-2022 Telephone encounter Piyush rudd MD Work Phone: Internal [facility] [place] Comment on above: Orders Start: 09-04-2022 End: 09-04-2022 Nursing evaluation of patient and report Mi Nurse Work Phone: [facility] [place] Comment on above: Pernicious anemia (P rimary Dx) Start: 07-31-2022 End: 07-31-2022 Nursing evaluation of patient and report Mi Nurse Work Phone: [facility] [place] Comment on above: Pernicious anemia (P rimary Dx) Start: 07-14-2022 End: 07-14-2022 Patient encounter procedure Piyush Rivera MD Work Phone: Internal [facility] [place] Comment on above: Essential hypertensi on (Primary Dx); Pernicious anemia; Venous insufficiency of both lower extremities; Atrophy of muscle of left lower leg; Left leg weakness; Raynaud's phenomenon without gangrene Start: 07-03-2022 End: 07-03-2022 Nursing evaluation of patient and report Mi Nurse Work Phone: [facility] Comment on above: Pernicious anemia (P rimary Dx) Start: 06-05-2022 End: 06-05-2022 Nursing evaluation of patient and report Mi Nurse Work Phone: [facility] Comment on above: Pernicious anemia (P rimary Dx); Need for vaccination; Need for influenza vaccination Start: 05-03-2022 End: 05-03-2022 Nursing evaluation of patient and report Mi Nurse Work Phone: [facility] Comment on above: Pernicious anemia (P rimary Dx) Start: 04-20-2022 End: 04-20-2022 ambulatory [facility] Work Phone: Start: 04-20-2022 End: 04-20-2022 Patient encounter procedure [facility] Start: 04-03-2022 End: 04-03-2022 Nursing evaluation of patient and report Mi Nurse Work Phone: [facility] Comment on above: Pernicious anemia (P rimary Dx) Start: 03-29-2022 Telephone encounter Piyush rudd MD Work Phone: [facility] Comment on above: Patient Update Start: 03-06-2022 End: 03-06-2022 Nursing evaluation of patient and report Mi Nurse Work Phone: [facility] Comment on above: Pernicious anemia (P rimary Dx) Start: 02-20-2022 Refill Piyush boss MD Work Phone: [facility] Comment on above: Refill Request Start: 01-30-2022 End: 01-30-2022 Nursing evaluation of patient and report Mi Nurse Work Phone: [facility] Comment on above: Pernicious anemia (P rimary Dx) Start: 01-11-2022 End: 01-11-2022 Subsequent hospital visit by physician Xr [facility] [place] Work Phone: Radiology Comment on above: [...] Patient encounter status Mi Nurse Work Phone: [facility] Procedures Date Procedure Procedure Detail Performing Clinician Start: 02-15-[address] Piyush Rivera MD Work Phone: Start: 01-08-2025 Radionuclide whole b benita bone [...] above: Raven ECLIA methodol ogy.According to the [employer], Serum PSAshould decrease and remain [...] PFIZER-BIONTECH COVI D-19 VACCINE AGE 12+ YR ([facility] Piyush Rivera MD Work Phone: Start: 05-14-2024 Radiologic exam chest 2 views Piyush Rivera MD Work Phone: Start: 04-16-2024 Ecg routine ecg w/le ast 12 lds i&r only [facility] Provider Start: 04-14-2024 Radiologic exam chest 2 views Ameya Agudelo MD Work Phone: Start: 02-25-2024 PFIZER-BIONTECH COVI D-19 VACCINE () AGE 12+ YR Pyiush Rivera MD Work Phone: Start: 02-25-2024 Adult depression scr eening assessment Mi Nurse Work Phone: Start: 02-25-2024 Lipid 1996 panel - S sofía or Plasma Piyush Rivera MD Work Phone: Start: 02-09-2023 Lipid 1996 panel - S sofía or Plasma Karey Staton PA-C Work Phone: Start: 06-05-2022 INFLUENZA SEASONAL Q UADRIVALENT HIGH DOSE AGE 65+ Negra Older CCNP.CHILD WELFARE SOCIAL WORKER Work Phone: Start: 06-05-2022 PFIZER-BIONTECH COVI D-19 BIVALENT BOOSTER VACCINE, AGE 12+ YR Negra Older CCNP.CHILD WELFARE SOCIAL WORKER Work Phone: Start: 01-11-2022 Radiologic exam chest 2 views Piyush Rivera MD Work Phone: Start: 01-11-2022 PFIZER-BIONTECH COVI D-19 VACCINE, AGE 12+ YR ([facility]) Piyush Rivera MD Work Phone: Start: 01-11-2022 Adult depression scr eening assessment Piyush Rivera MD Work Phone: Start: 01-03-2021 Adult depression scr eening assessment Mi Nurse Work Phone: Start: 04-21-2020 Colonoscopy Mi Nurse Work Phone: Plan of Treatment Date Care Activity Detail Author Start: 04-21-2030 Colonoscopy COLONOSCOPY [facility] Start: 04-21-2030 COLORECTAL CANCER SCREENING COLORECTAL CANCER SCREENING [facility] Start: 04-21-2030 Screening for malign ant neoplasm of colon [facility] Start: 02-24-2029 Lipid panel Lipid Screening [facility] Start: 01-27-2029 Urine microalbumin profile [facility] Start: 02-10-2028 Lipid 1996 panel - S sofía or Plasma Lipid Screening [facility] Start: 02-10-2028 Lipid panel Lipid Screening [facility] Start: 02-10-2028 LIPID SCREEN LIPID SCREEN [facility] Start: 04-14-2027 Diabetes Screening Diabetes Screenin g [facility] Start: 04-07-2027 Diabetes Screening Diabetes Screenin g [facility] Start: 02-24-2027 Diabetes Screening Diabetes Screenin g [facility] Start: 12-26-2026 LIPID SCREEN LIPID SCREEN [facility] Start: 02-09-2026 DIABETES SCREEN DIABETES SCREEN [facility] Start: 02-09-2026 Diabetes Screening Diabetes Screenin g [facility] Start: 12-30-2025 LIPID SCREEN LIPID SCREEN [facility] Start: 11-25-2025 Annual PCP Team Manager [employer] joseph Disease Visit Annual PCP Team Chronic Disease Visit [facility] Start: 08-28-2025 Annual PCP Team Manager [employer] joseph Disease Visit Annual PCP Team Chronic Disease Visit [facility] Start: 08-28-2025 BP Controlled (<130/80) BP Controlle d (<130/80) [facility] Start: 08-10-2025 End: 08-10-2025 Nursing evaluation of patient and report 08/10/2025 9:00 AM EST Nurse Visit [facility] [place] [address] [place] [address] [place] [address] [place] [address] B-12 injection [facility] [place] Comment on above: B-12 injection Start: 07-14-2025 DIABETES SCREEN DIABETES SCREEN [facility] Start: 07-06-2025 End: 07-06-2025 Nursing evaluation of patient and report 07/06/2025 9:00 AM EST Nurse Visit [facility] [place] [address] [place] [address] Nurse[place] [address] [place] [address] B-12 injection [facility] [place] Comment on above: B-12 injection Start: 06-08-2025 End: 06-08-2025 Nursing evaluation of patient and report 06/08/2025 9:00 AM EDT Nurse Visit [facility] [address] [place] [address] Nurse, [place] [address] [place] [address] B-12 injection [facility] Comment on above: B-12 injection Start: 05-19-2025 Annual PCP Team Manager [employer] joseph Disease Visit Annual PCP Team Chronic Disease Visit [facility] Start: 05-11-2025 End: 05-11-2025 Nursing evaluation of patient and report 05/11/2025 9:00 AM EDT Nurse Visit [facility] [place] [address] [place] [address] Nurse, [place] [address] [place] [address] B-12 injection [facility] [place] Comment on above: B-12 injection Start: 04-27-2025 Influenza vaccination Influenza Vacc ine (#1) [facility] Start: 04-16-2025 Annual PCP Team Manager [employer] joseph Disease Visit Annual PCP Team Chronic Disease Visit [facility] Start: 04-06-2025 End: 04-06-2025 Nursing evaluation of patient and report 04/06/2025 9:00 AM EDT Nurse Visit [facility] [place] [address] [place] [address] Nurse, [place] [address] [place] [address] B-12 injection [facility] [place] Comment on above: B-12 injection Start: 03-02-2025 End: 03-02-2025 Nursing evaluation of patient and report 03/02/2025 11:15 AM EDT Nurse Visit [facility] [address] [place] [address] Nurse[place] [address] [place] [address] B-12 injection [facility] [place] Comment on above: B-12 injection Start: 02-26-2025 End: 02-26-2025 Patient encounter procedure 02/26/2025 1:00 PM EDT Office Visit Internal Medicine [place] [address] [place] [address] Piyush Rivera MD [address] [place] [address] Medicare Annual Wellness w/6 month follow-up Internal Medicine [facility] Comment on above: Medicare Annual Well ness w/6 month follow-up Start: 02-25-2025 Covid-19 Vaccine ( season) Covid-19 Vaccine ( season) [facility] Start: 02-24-2025 Annual PCP Team Manager [employer] joseph Disease Visit Annual PCP Team Chronic Disease Visit [facility] Start: 02-24-2025 Anxiety Screening Anxiety Screening [facility] Start: 02-24-2025 Depression Screening Depression Scre ening [facility] Start: 02-23-2025 End: 05-25-2025 CBC panel - Blood by Automated count COMPLETE BLOOD COUNT Lab Routine Pernicious anemia Expected: 02/23/2025, Expires: 05/25/2025 [facility] Work Phone: Comment on above: Expected: 02/23/2025 , Expires: 05/25/2025 Start: 02-23-2025 End: 05-25-2025 Cobalamin (Vitamin B12) [Mass/volume] in Serum or Plasma VITAMIN B12 Lab Routine Pernicious anemia Expected: 02/23/2025, Expires: 05/25/2025 [facility] Comment on above: Expected: 02/23/2025 , Expires: 05/25/2025 Start: 02-23-2025 End: 05-25-2025 Comprehensive metabolic 2000 panel - Serum or Plasma COMPREHENSIVE METABOLIC PANEL Lab Routine Essential hypertension Expected: 02/23/2025, Expires: 05/25/2025 [facility] Comment on above: Expected: 02/23/2025 , Expires: 05/25/2025 Start: 02-23-2025 End: 05-25-2025 Lipid 1996 panel - Serum or Plasma LIPID PANEL BASIC Lab Routine Essential hypertension Expected: 02/23/2025, Expires: 05/25/2025 [facility] Comment on above: Expected: 02/23/2025 , Expires: 05/25/2025 Start: 02-15-2025 [facility] Start: 02-02-2025 End: 02-02-2025 Nursing evaluation of patient and report 02/02/2025 9:15 AM EDT Nurse Visit Family Medicine [facility] [address] [place] [address] Nurse, [place] [address] [place] [address] B-12 injection [facility] [place] Comment on above: B-12 injection Start: 01-05-2025 End: 01-05-2025 Nursing evaluation of patient and report 01/05/2025 9:15 AM EDT Nurse Visit [facility] [place] [address] [place] [address] Nurse, [place] [address] [place] [address] B-12 injection [facility] Comment on above: B-12 injection Start: 12-26-2024 DIABETES SCREEN DIABETES SCREEN [facility] Start: 12-08-2024 End: 12-08-2024 Nursing evaluation of patient and report 12/08/2024 9:15 AM EDT Nurse Visit [facility] [address] [place] [address] Nurse, [place] [address] [place] [address] B-12 injection [facility] Comment on above: B-12 injection Start: 11-10-2024 End: 11-10-2024 Nursing evaluation of patient and report 11/10/2024 9:15 AM EDT Nurse Visit [facility] [address] [place] [address] Nurse, [place] [address] [place] [address] B-12 injection [facility] Comment on above: B-12 injection Start: 10-13-2024 End: 10-13-2024 Nursing evaluation of patient and report 10/13/2024 9:15 AM EST Nurse Visit [facility] [place] [address] [place] [address] Nurse, [place] [address] [place] [address] B-12 injection [facility] Comment on above: B-12 injection Start: 09-08-2024 End: 09-08-2024 Nursing evaluation of patient and report 09/08/2024 8:45 AM EST Nurse Visit [facility] [address] [place] [address] Nurse, [place] [address] [place] [address] B-12 injection [facility] Comment on above: B-12 injection Start: 08-28-2024 End: 08-28-2024 Follow-up encounter 08/28/2024 1:40 PM EST [facility] [address] [place] [address] Piyush Rivera MD [address] [place] [address] 6 month follow-up Internal Medicine [facility] Comment on above: 6 month follow-up Start: 08-28-2024 End: 08-28-2024 Patient encounter procedure 08/28/2024 1:40 PM EST Office Visit Internal Medicine [place] [address] [place] [address] Piyush Rivera MD [address] [place] [address] 6 month follow-up [facility] [place] Comment on above: 6 month follow-up Start: 08-27-2024 Advance Directive Discussion Advance Directive Discussion [facility] Start: 08-27-2024 Medicare Advantage A nnual Wellness Visit Medicare Advantage Annual Wellness Visit [facility] Start: 08-11-2024 End: 08-11-2024 Nursing evaluation of patient and report 08/11/2024 9:15 AM EST Nurse Visit [facility] [address] [place] [address] Nurse, [place] [address] [place] [address] B-12 injection [facility] Comment on above: B-12 injection Start: 07-07-2024 End: 07-07-2024 Nursing evaluation of patient and report 07/07/2024 9:15 AM EST Nurse Visit Family [facility] [address] [place] [address] Nurse, [place] [address] [place] [address] B-12 injection [facility] [place] Comment on above: B-12 injection Start: 06-09-2024 End: 06-09-2024 Nursing evaluation of patient and report 06/09/2024 9:45 AM EDT Nurse Visit [facility] [address] [place] [address] Nurse, [place] [address] [place] [address] B-12 injection [facility] Comment on above: B-12 injection Start: 05-25-2024 BP Controlled (<130/80) BP Controlle d (<130/80) [facility] Start: 05-19-2024 End: 05-19-2024 Patient encounter procedure 05/19/2024 3:00 PM EDT Office Visit Internal Medicine [place] [address] [facility] [place] [address] Piyush Rivera MD [address] [facility] [address] urg care f/u Internal Medicine [facility] Comment on above: urg care f/u Start: 05-12-2024 End: 05-12-2024 Nursing evaluation of patient and report 05/12/2024 9:15 AM EDT Nurse Visit [facility] [place] [address] [place] [address] Nurse, [place] [address] [facility] [place], [place] [address] B-12 injection Family [facility] Comment on above: B-12 injection Start: 05-07-2024 End: 05-16-2025 XR Chest PA and Lateral XR CHEST 2V FRONTAL/LAT Radiology Routine Pleural effusion Expected: 05/07/2024, Expires: 05/16/2025 [facility] Comment on above: Expected: 05/07/2024 , Expires: 05/16/2025 Start: 04-27-2024 Covid-19 Vaccine ( season) Covid-19 Vaccine () [facility] Start: 04-27-2024 Influenza vaccination Influenza Vacc ine (#1) [facility] Start: 04-24-2024 End: 04-24-2024 Patient encounter procedure 04/24/2024 3:30 PM EDT Office Visit Cardiology [address] [place] [address] Abnormal EKG [R94.31] Cardiology Comment on above: Abnormal EKG [R94.31 ] Start: 04-16-2024 End: 04-16-2024 Patient encounter procedure 04/16/2024 8:20 AM EDT Office Visit Internal Medicine [place] [address] [facility] [place], [place] [id number] Piyush Rivera MD [address] [facility] [place] [address] urg care f/u Internal Medicine [facility] Comment on above: urg care f/u Start: 04-14-2024 End: 07-14-2024 CBC W Auto Differential panel - Blood [facility] Comment on above: Expected: 04/14/2024 , Expires: 07/14/2024 Start: 04-14-2024 End: 07-14-2024 Comprehensive metabolic 2000 panel - Serum or Plasma [facility] Comment on above: Expected: 04/14/2024 , Expires: 07/14/2024 Start: 04-14-2024 End: 07-14-2024 Fibrin D-dimer FEU [Mass/volume] in Platelet poor plasma [facility] Comment on above: Expected: 04/14/2024 , Expires: 07/14/2024 Start: 04-14-2024 End: 07-14-2024 Natriuretic peptide.B prohormone N-Terminal [Mass/volume] in Serum or Plasma [facility] Comment on above: Expected: 04/14/2024 , Expires: 07/14/2024 Start: 04-07-2024 End: 04-07-2024 Nursing evaluation of patient and report 04/07/2024 9:45 AM EDT Nurse Visit [facility] [address] [place] [address] Nurse, Swathi [address] [place] [address] [address] [place] [address] [place] Comment on above: b-12 Start: 03-24-2024 End: 06-23-2024 Basic metabolic 2000 panel - Serum or Plasma BASIC METABOLIC PANEL Lab Routine Essential hypertension Expected: 03/24/2024, Expires: 06/23/2024 [facility] Work Phone: Comment on above: Expected: 03/24/2024 , Expires: 06/23/2024 Start: 03-03-2024 End: 03-03-2024 Nursing evaluation of patient and report 03/03/2024 9:15 AM EDT Nurse Visit [facility] [address] [place] [address] Nurse, Ks [address] [place], [place] [address] B-12 injection- ok to arrive early per [facility] [place] Comment on above: B-12 injection- ok t o arrive early per [facility] Start: 02-25-2024 End: 02-25-2024 Patient encounter procedure 02/25/2024 4:40 PM EDT Office Visit Internal Medicine [place] [address] [place] [address] Piyush Rivera MD [address] [place] [address] medicare wellness Internal Medicine [place] Comment on above: medicare wellness Start: 02-13-2024 ANNUAL PCP TEAM BACKER UP JOSEPH DISEASE VISIT ANNUAL PCP TEAM CHRONIC DISEASE VISIT [facility] Start: 02-04-2024 End: 02-04-2024 Nursing evaluation of patient and report [facility] Medicine [place] Comment on above: B-12 injection B-12 injection- ok t o arrive late per [facility] Start: 01-30-2024 End: 04-30-2024 25-hydroxyvitamin D3 [Mass/volume] in Serum or Plasma VITAMIN D 25 HYDROXY Lab Routine Vitamin D deficiency Expected: 01/30/2024, Expires: 04/30/2024 [facility] Comment on above: Expected: 01/30/2024 , Expires: 04/30/2024 Start: 01-30-2024 End: 04-30-2024 CBC panel - Blood by Automated count COMPLETE BLOOD COUNT Lab Routine Pernicious anemia Essential hypertension Expected: 01/30/2024, Expires: 04/30/2024 [facility] Work Phone: Comment on above: Expected: 01/30/2024 , Expires: 04/30/2024 Start: 01-30-2024 End: 04-30-2024 Cobalamin (Vitamin B12) [Mass/volume] in Serum or Plasma VITAMIN B12 Lab Routine Pernicious anemia Expected: 01/30/2024, Expires: 04/30/2024 [facility] Comment on above: Expected: 01/30/2024 , Expires: 04/30/2024 Start: 01-30-2024 End: 04-30-2024 Comprehensive metabolic 2000 panel - Serum or Plasma COMPREHENSIVE METABOLIC PANEL Lab Routine Essential hypertension Expected: 01/30/2024, Expires: 04/30/2024 [facility] Comment on above: Expected: 01/30/2024 , Expires: 04/30/2024 Start: 01-30-2024 End: 04-30-2024 Hemoglobin A1c in Blood HEMOGLOBIN A1C Lab Routine Hyperglycemia Expected: 01/30/2024, Expires: 04/30/2024 [facility] Comment on above: Expected: 01/30/2024 , Expires: 04/30/2024 Start: 01-30-2024 End: 04-30-2024 Lipid 1996 panel - Serum or Plasma LIPID PANEL BASIC Lab Routine Essential hypertension Expected: 01/30/2024, Expires: 04/30/2024 [facility] Comment on above: Expected: 01/30/2024 , Expires: 04/30/2024 Start: 12-31-2023 DIABETES SCREEN DIABETES SCREEN [facility] Start: 09-28-2023 Covid-19 Vaccine () Covid-19 Vaccine () [facility] Start: 08-27-2023 Advance Directive Discussion Advance Directive Discussion [facility] Start: 08-27-2023 Behavioral Health Screening Behavioral Health Screening [facility] Start: 08-27-2023 Depression Assessment Depression Ass essment [facility] Start: 08-14-2023 End: 10-14-2023 25-hydroxyvitamin D3 [Mass/volume] in Serum or Plasma VITAMIN D 25 HYDROXY Lab Routine Vitamin D deficiency Expected: 08/14/2023, Expires: 10/14/2023 [facility] Work Phone: Comment on above: Expected: 08/14/2023 , Expires: 10/14/2023 Start: 08-14-2023 End: 10-14-2023 Basic metabolic 2000 panel - Serum or Plasma BASIC METABOLIC PNL Lab Routine Hyperglycemia Expected: 08/14/2023, Expires: 10/14/2023 [facility] Work Phone: Comment on above: Expected: 08/14/2023 , Expires: 10/14/2023 Start: 08-14-2023 End: 10-14-2023 CBC panel - Blood by Automated count CBC Lab Routine Pernicious anemia Expected: 08/14/2023, Expires: 10/14/2023 [facility] Work Phone: Comment on above: Expected: 08/14/2023 , Expires: 10/14/2023 Start: 08-14-2023 End: 10-14-2023 Cobalamin (Vitamin B12) [Mass/volume] in Serum or Plasma VITAMIN B12 BLOOD Lab Routine Pernicious anemia Expected: 08/14/2023, Expires: 10/14/2023 [facility] Work Phone: Comment on above: Expected: 08/14/2023 , Expires: 10/14/2023 Start: 08-14-2023 End: 10-14-2023 Hemoglobin A1c in Blood HGB A1C Lab Routine Hyperglycemia Expected: 08/14/2023, Expires: 10/14/2023 [facility] Work Phone: Comment on above: Expected: 08/14/2023 , Expires: 10/14/2023 Start: 07-14-2023 ANNUAL PCP TEAM BACKER UP JOSEPH DISEASE VISIT ANNUAL PCP TEAM CHRONIC DISEASE VISIT [facility] Start: 04-27-2023 Influenza vaccination [facility] Start: 02-09-2023 End: 04-11-2023 25-hydroxyvitamin D3 [Mass/volume] in Serum or Plasma [facility] Work Phone: Comment on above: Expected: 02/09/2023 , Expires: 04/11/2023 Start: 02-09-2023 End: 04-11-2023 Lipid 1996 panel - Serum or Plasma [facility] Work Phone: Comment on above: Expected: 02/09/2023 , Expires: 04/11/2023 Start: 01-11-2023 Adult depression scr eening assessment DEPRESSION SCREENING [facility] Start: 01-11-2023 ANNUAL PCP TEAM BACKER UP JOSEPH DISEASE VISIT ANNUAL PCP TEAM CHRONIC DISEASE VISIT [facility] Start: 10-06-2022 COVID-19 VACCINE (6 - Pfizer series) COVID-19 VACCINE (6 - Pfizer series) [facility] Start: 08-27-2022 ADVANCE DIRECTIVE DISCUSSION ADVANCE DIRECTIVE DISCUSSION [facility] Start: 08-27-2022 DEPRESSION ASSESSMENT DEPRESSION ASS ESSMENT [facility] Start: 07-14-2022 End: 09-13-2022 Basic metabolic 2000 panel - Serum or Plasma BASIC METABOLIC PNL Lab Routine Pernicious anemia Expected: 07/14/2022, Expires: 09/13/2022 [facility] Work Phone: Comment on above: Expected: 07/14/2022 , Expires: 09/13/2022 Start: 07-14-2022 End: 09-13-2022 CBC panel - Blood by Automated count CBC Lab Routine Pernicious anemia Expected: 07/14/2022, Expires: 09/13/2022 [facility] Work Phone: Comment on above: Expected: 07/14/2022 , Expires: 09/13/2022 Start: 07-14-2022 End: 09-13-2022 VITAMIN B12 BLOOD VITAMIN B12 BLOOD Lab Routine Pernicious anemia Expected: 07/14/2022, Expires: 09/13/2022 [facility] Work Phone: Comment on above: Expected: 07/14/2022 , Expires: 09/13/2022 Start: 04-27-2022 Influenza vaccination INFLUENZA (#1) [facility] Start: 04-13-2022 ANNUAL PCP TEAM BACKER UP JOSEPH DISEASE VISIT ANNUAL PCP TEAM CHRONIC DISEASE VISIT [facility] Start: 01-03-2022 Adult depression scr eening assessment DEPRESSION SCREENING [facility] Start: 08-27-2021 ADVANCE DIRECTIVE DISCUSSION ADVANCE DIRECTIVE DISCUSSION [facility] Start: 08-27-2021 DEPRESSION ASSESSMENT DEPRESSION ASS ESSMENT [facility] Start: 05-31-2021 BP CONTROLLED (<130/80) BP CONTROLLE D (<130/80) [facility] Start: 02-25-2015 FECAL OCCULT BLOOD FECAL OCCULT BLOO D [facility] Start: 02-25-2015 Screening for malign ant neoplasm of colon Fecal Occult Blood [facility] Start: 2010 RSV Vaccine (1 - 1-d ose 60+ series) RSV Vaccine (1 - 1-dose 60+ series) [facility] Start: 1995 COLOGUARD (FIT-DNA) COLOGUARD (FIT-D NA) [facility] Start: [address] COLONOGRAPHY [facility] Start: 1995 Screening for malign ant neoplasm of colon [facility] Start: 1995 [facility]OSCOPY [facility] Bilirubin measuremen t, urine [facility] ECG COMPLETE [facility] Work Phone: Comment on above: Ordered: 04/16/2024 End: 04-16-2025 Echocardiography ECHO Cardiology Routine Abnormal EKG 1 Occurrences starting 04/16/2024 until 04/16/2025 [facility] Comment on above: 1 Occurrences starti ng 04/16/2024 until 04/16/2025 Hemoglobin [Presence ] in Urine [facility] Measurement of keton es in urine using dipstick [facility] Microscopic urinalysis [facility] Patient Education ED [place] Sue ter, Care ED Urinary Retention, Male [facility] Work Phone: Patient referral [facility] Work Phone: pH of Urine [facility] Removal impacted cer umen irrigation/lvg unilat AMBULATORY EAR LAVAGE/IRRIGATION Procedures Routine Impacted cerumen of left ear Ordered: 02/12/2023 [facility] Work Phone: Comment on above: Ordered: 02/12/2023 SARS-CoV-2 (COVID-19 ) RNA [Presence] in Respiratory specimen by CORAL with probe detection COVID NAAT, UPPER RESPIRATORY, ROUTINE Microbiology Routine Acute cough Ordered: 04/14/2024 [facility] Work Phone: Comment on above: Ordered: 04/14/2024 Specific gravity of Urine [facility] Urine blood test [facility] Urine culture [facility] Urine dipstick for glucose [facility] Urine dipstick for leukocyte esterase [facility] Urine dipstick for nitrite [facility] Urine dipstick for protein [facility] Urine examination [facility] Urine microscopy: epithelial cells [facility] Urine Microscopy: wh ite cells [facility] Urobilinogen [Presen ce] in Urine [facility] Immunizations Immunization Date Immunization Notes Care Provider [employer] 08-28-2024 COVID-19 vaccine, ag e 12+ yr (PFIZER-BIONTECH COMIRNATY) Piyush Rivera MD Work Phone: [facility] 05-19-2024 influenza, high dose seasonal, preservative-free Piyush Rivera MD Work Phone: [facility] 05-19-2024 influenza virus vacc ine, unspecified formulation Nikki Couch MA [facility] 02-25-2024 COVID-19 vaccine, ag e 12+ yr, season (PFIZER-BIONTECH) Piyush Rivera MD Work Phone: [facility] 10-03-2023 respiratory syncytia l virus (RSV) vaccine, bivalent (ABRYSVO) Piyush Rivera MD Work Phone: [facility] 2023 COVID-19 vaccine, ag e 12+ yr, season (PFIZER-BIONTECH) Ks Nurse Work Phone: [facility] Work Phone: 2023 influenza (HD-IIV4) vaccine, age 65+ yr, high dose, quadrivalent, PF (FLUZONE HIGH-DOSE) Ks Nurse Work Phone: [facility] Work Phone: 2023 influenza virus vacc ine, unspecified formulation Piyush Rivera MD Work Phone: [facility] 06-05-2022 COVID-19 booster vaccine, age 12+ yr, bivalent (PFIZER-BIONTECH) Ks Nurse Work Phone: [facility] Work Phone: 06-05-2022 influenza, high-dose , quadrivalent vaccine (FLUZONE HIGH DOSE QUADRIVALENT) Ks Nurse Work Phone: [facility] Work Phone: 06-05-2022 influenza virus vacc ine, unspecified formulation Karey Staton PA-C Work Phone: [facility] 01-11-2022 COVID-19 vaccine, ag e 12+ yr (PFIZER-BIONTECH - BUI TOP) Piyush Rivera MD Work Phone: [facility] Work Phone: 05-30-2021 influenza, high-dose , quadrivalent vaccine (FLUZONE HIGH DOSE QUADRIVALENT) Ks Nurse Work Phone: [facility] Work Phone: 10-21-2020 COVID-19 vaccine, ag e 12+ yr (PFIZER-BIONTECH - PURPLE TOP) Ks Nurse Work Phone: [facility] Work Phone: 09-30-2020 COVID-19 vaccine, ag e 12+ yr (PFIZER-BIONTECH - PURPLE TOP) Ks Nurse Work Phone: [facility] Work Phone: 08-24-2020 zoster vaccine recombinant Ks Nurse Work Phone: [facility] Work Phone: 06-02-2020 zoster vaccine recombinant Ks Nurse Work Phone: [facility] Work Phone: 05-31-2020 influenza, high-dose , quadrivalent vaccine (FLUZONE HIGH DOSE QUADRIVALENT) Ks Nurse Work Phone: [facility] Work Phone: 05-29-2019 influenza, high dose seasonal, preservative-free Ks Nurse Work Phone: [facility] Work Phone: 01-27-2019 tetanus and diphther ia toxoids, adsorbed, preservative free, for adult use (5 Lf of tetanus toxoid and 2 Lf of diphtheria toxoid) Ks Nurse Work Phone: [facility] Work Phone: 05-13-2018 influenza, high dose seasonal, preservative-free Ks Nurse Work Phone: [facility] Work Phone: 06-19-2017 influenza, injectabl e, quadrivalent, preservative free [facility] 06-19-2017 influenza, seasonal, injectable [facility] Work Phone: 06-18-2017 influenza, high dose seasonal, preservative-free Ks Nurse Work Phone: [facility] Work Phone: 01-12-2017 pneumococcal polysaccharide vaccine, 23 valent Ks Nurse Work Phone: [facility] 06-19-2016 influenza, high dose seasonal, preservative-free Ks Nurse Work Phone: [facility] Work Phone: 09-07-2015 pneumococcal conjuga te vaccine, 13 valent Ks Nurse Work Phone: [facility] 06-07-2015 influenza, high dose seasonal, preservative-free Ks Nurse Work Phone: [facility] Work Phone: 07-20-2014 influenza, seasonal, injectable Ks Nurse Work Phone: [facility] Work Phone: 07-03-2012 influenza virus vacc ine, unspecified formulation Mi Nurse Work Phone: [facility] 07-03-2012 zoster vaccine, live Mi Nurs e Work Phone: [facility] 07-31-2011 influenza virus vacc ine, unspecified formulation Mi Nurse Work Phone: [facility] 06-13-2010 influenza virus vacc ine, unspecified formulation Mi Nurse Work Phone: [facility] 06-14-2009 influenza virus vacc ine, unspecified formulation Mi Nurse Work Phone: [facility] Work Phone: 02-01-2009 tetanus toxoid, redu raven diphtheria toxoid, and acellular pertussis vaccine, adsorbed Mi Nurse Work Phone: [facility] 08-10-2008 influenza virus vacc ine, unspecified formulation Mi Nurse Work Phone: [facility] Work Phone: 07-15-2007 influenza virus vacc ine, unspecified formulation Ks Nurse Work Phone: [facility] 06-25-2006 influenza virus vacc ine, unspecified formulation Ks Nurse Work Phone: [facility] Work Phone: Payers Date Payer Category Payer Self-pay [id number] 2021 Medicare [employer] MEDICARE A ETNA MEDICARE PPO [id number] 2021-Present [phone] [address] [place] [address] PPO [id number] 2021 Medicare [employer] MEDICARE A ETNA MEDICARE PPO [id number] 2021-Present [phone] [address] [place] [address] PP [id number] 2021 Medicare (Managed Care) [employer] [place] [facility] [id number] 2010 Private Health Insurance 101 [id number] Unknown [id number] Unknown [id number] Unknown [id number] Unknown [id number] Unknown [id number] Unknown [id number] Unknown [id number] Unknown [id number] Social History Date Type Detail Facility Start: 07-31-2011 End: 02-12-2023 Tobacco smoking status NHIS Never smoked tobacco [facility] Work Phone: Start: 04-13-2021 End: 11-25-2024 Alcohol intake Current drinker of alcohol (finding) [facility] Start: 04-13-2021 End: 01-29-2023 Alcohol intake [facility] Start: 04-21-2020 End: 05-31-2020 History SDOH Alcohol Frequency 5 [facility] Start: 04-21-2020 End: 05-31-2020 History SDOH Alcohol Std Drinks 1 [facility] Start: 09-16-2019 End: 12-27-2019 History SDOH Social Connections Phone 3 [facility] Start: 09-16-2019 End: 05-31-2020 History SDOH Social Connections Get Together 2 [facility] Start: 09-15-2019 Education 18 [facility] Start: 1950 Sex Assigned At Male [facility] Start: 11-25-2021 End: 01-11-2022 Exposure to SARS-CoV-2 (event) Not sure [facility] Start: 07-31-2011 End: 02-12-2023 Tobacco use and exposure Smokeless tobacco non-user [facility] Start: 04-21-2018 Tobacco smoking status NHIS Unknown if ever smoked [facility] Start: 08-15-2017 None [facility] Start: 12-20-2017 Spouse/ Significant Other [facility] Start: 01-02-2017 Non-smoker [facility] Start: 12-27-2019 End: 01-29-2023 Social connection and isolation panel [facility] Do you belong to any clubs or organizations such as adventist groups, unions, fraternal or athletic groups, or school groups? Yes [facility] Are you now , , , , never or living with a partner? [facility] How often to you hav e a drink containing alcohol? 4 or more times a week [facility] How many standard dr inks containing alcohol do you have on a typical day? 1 or 2 [facility] How often do you hav e 6 or more drinks on 1 occasion? Never [facility] How hard is it for y ou to pay for the very basics like food, housing, medical care, and heating Not hard at all [facility] Work Phone: Do you feel stress - tense, restless, nervous, or anxious, or unable to sleep at night because your mind is troubled all the time - these days [OSQ] Only a little [facility] (I/We) worried cassandra er (my/our) food would run out before (I/we) got money to buy more. Never true [facility] Work Phone: Start: 12-29-2019 Gender identity Identifies as male gender (finding) [facility] Start: 04-21-2018 End: 02-15-2025 Tobacco smoking status NHIS Ex-smoker (finding) [facility] Start: 11-09-2024 End: 11-16-2024 Sex Male (finding) [facility] Functional Status Date Assessment Result Facility 03-08-2015 Are you deaf, or do you have serious difficulty hearing No 03/08/2015 9:29 AM Tami Magdaleno LPN No [facility] Work Phone: 03-08-2015 Are you blind, or do you have serious difficulty seeing, even when wearing glasses No 03/08/2015 9:29 AM Tami Magdaleno LPN No [facility] 03-08-2015 Do you have serious difficulty walking or climbing stairs No 03/08/2015 9:29 AM EDT Tami Mejia LPN No [facility] 03-08-2015 Do you have difficul ty dressing or bathing No 03/08/2015 9:29 AM EDT Tami Mejia LPN No [facility] 03-08-2015 Because of a physica l, mental, or emotional condition, do you have difficulty doing errands alone such as visiting a physician's office or shopping No 03/08/2015 9:29 AM EDT Tami Mejia LPN No [facility] Mental Status Date Assessment Result Facility 03-08-2015 Because of a physica l, mental, or emotional condition, do you have serious difficulty concentrating, remembering, or making decisions No 03/08/2015 9:29 AM EDT Tami Mejia LPN No [facility] Clinical Notes 02-04-2015 to 02-24-2025 Nikki Couch MA - 02/24/2025 8:17 AM EDTTelephone Encounter - Cira Granados RN - 02/19/2025 8:12 AM EDTTelephone Encounter - Cira Granados RN - 02/19/2025 8:12 AM EDT Note Date & Type Note Facility 02-24-2025 History of Presen t illness Narrative POPULATION HEALTH NAVIGATION OUTREACH Action/I Patient is on [employer] Work[employer] list for below and needs appointment to address: Advance Directive Discussion Medicare Advantage Annual Wellness Visit Depression Screening Anxiety Screening Covid-19 Vaccine() Hemoglobin A1C (%) Date Value 02/25/2024 5.6 07/06/2004 5.3 Last 1 Encounter BP Readings: Date: BP: 11/25/2024 132/80 Patient due for: Medicare Annual Wellness Visit - cancelled 02/2025 appointment Jessica Active: Yes Spoke to patient. Declined to schedule. Patient states that he is going to have surgery tomorrow and doesn't know what is going to happen. Will call back to schedule when he is ready to schedule. HCC: No Reason for Outreach Care Gap/HCC or Scheduling Wellness Visits Care Gaps due: Medicare Annual Wellness Visit Patient Contacted: Spoke to patient/parent/or legal guardian Patient identified by name and : Yes Care Gap/HCC/Scheduling Wellness actions taken: Patient declined: Patient requested call back from navigator/ will call navigator back Navigation Signature: Nikki Couch MA February 24, 2025 8:17 AM documented in this encounter [facility] 02-19-2025 Telephone encount er Note The patient has been identified by name and date of : Yes Caregiver verified no other encounters exist for this prescription request: Yes Caregiver confirmed with patient/requestor that no other refills are due, in the near future, with this provider at this time: Yes The last office visit in the department: 11/25/2024 Does the patient have a future office visit with this provider/department: Patient calls to cancel next appt d/t upcoming surgery. Offered to schedule before surgery. Declined. Offered to reschedule after surgery. Declined. Reports that he will reschedule once he feels well enough after surgery. Requested Prescriptions Pending Prescriptions Disp Refills amLODIPine (NORVASC) 10 mg tablet 90 tablet 3 Sig: Take 1 tablet by mouth once daily. Cira Granados RN February 19, 2025 8:12 AM [facility] 02-19-2025 Miscellaneous Notes Formattin g of this note is different from the original. The patient has been identified by name and date of : Yes Caregiver verified no other encounters exist for this prescription request: Yes Caregiver confirmed with patient/requestor that no other refills are due, in the near future, with this provider at this time: Yes The last office visit in the department: 11/25/2024 Does the patient have a future office visit with this provider/department: Patient calls to cancel next appt d/t upcoming surgery. Offered to schedule before surgery. Declined. Offered to reschedule after surgery. Declined. Reports that he will reschedule once he feels well enough after surgery. Requested Prescriptions Pending Prescriptions Disp Refills amLODIPine (NORVASC) 10 mg tablet 90 tablet 3 Sig: Take 1 tablet by mouth once daily. Cira Granados RN February 19, 2025 8:12 AM documented in this encounter [facility] 02-15-2025 Discharge summary [facility] 02-02-2025 Note HNO ID: [id number] Author: ?, ?, ? Service: ? Author Type: LICENSED NURSE Type: Progress Notes Filed: 02/02/2025 09:18 Note Text: Patient presents for B-12 injection. Denies any problems at this time. Patient instructed on any SE of medication, verbalized understanding and agreed to proceed with treatment. Tolerated injection well. Ramonita Trevino LPN [facility] 02-02-2025 History of Presen t illness Narrative Patient presents for B-12 injection. Denies any problems at this time. Patient instructed on any SE of medication, verbalized understanding and agreed to proceed with treatment. Tolerated injection well. Ramonita Trevino LPN documented in this encounter [facility] 01-05-2025 Note HNO ID: [id number] Author: ?, ?, ? Service: ? Author Type: LICENSED NURSE Type: Progress Notes Filed: 01/05/2025 09:28 Note Text: Patient presents for B-12 injection. Denies any problems at this time. Patient instructed on any SE of medication, verbalized understanding and agreed to proceed with treatment. Tolerated injection well. Ramonita Trevino LPN [facility] 01-05-2025 History of Presen t illness Narrative Patient presents for B-12 injection. Denies any problems at this time. Patient instructed on any SE of medication, verbalized understanding and agreed to proceed with treatment. Tolerated injection well. Ramonita Trevino LPN documented in this encounter [facility] 12-25-2024 Telephone encounter Note Prescription Refill Information [...] mouth one time a week. Per Patient, [facility] will not mail the Vitamin D2. Please send to [facility] [place]. Ayah Ely [facility] December 25, 2024 2:53 PM [facility] 12-25-2024 Miscellaneous Notes Prescription Refill Information The [...] mouth one time a week. Per Patient, [facility] will not mail the Vitamin D2. Please send to [facility] [place]. [facility], [facility] 2:53 PM documented in this encounter [facility] 12-02-2024 History of Presen t illness Narrative Patient presents for B-12 injection. Denies any problems at this time. Patient instructed on any SE of medication, verbalized understanding and agreed to proceed with treatment. Tolerated injection well. Usha Alexander LPN documented in this encounter [facility] 12-02-2024 Note HNO ID: [id number] Author: USHA ALEXANDER LPN Service: ? Author Type: LICENSED NURSE Type: Progress Notes Filed: 12/02/2024 10:58 Note Text: Patient presents for B-12 injection. Denies any problems at this time. Patient instructed on any SE of medication, verbalized understanding and agreed to proceed with treatment. Tolerated injection well. Usha Alexander LPN [facility] 11-25-2024 Note HNO ID: [id number] Author: NEGRA UGALDE APRN.CHILD WELFARE SOCIAL WORKER Service: ? Author Type: Nurse Practitioner Type: Progress Notes Filed: 11/25/2024 08:38 Note Text: CC: Patient presents with: Chest Congestion: Cough x 4 days HPI The patient consented to the use of SmartCare system software for draft documentation of the visit consistent with [facility]?s Notice of Privacy Practices. Cough: - Onset: Sunday, four days ago. - Described as "horrible" during coughing fits, with sensation deep in [...] DIAGNOSTIC 11/27/2006 LAPS SURG CHOLECYSTECTOMY W/CHOLANGIOGRAPHY 08/16/2017 [facility] PAST SURGICAL HISTORY OF November Total [...] (5oz) per week Drug use: No Comment: "not usually" BP 132/80 Pulse 74 Temp 37.1 ?C [...] - Physical examination (more content not included)... [facility] 11-25-2024 History of Presen t illness Narrative CC: Patient presents with: Chest Congestion: Cough x 4 days HPI The patient consented to the use of ambient [employer] software for draft documentation of the visit consistent with [facility] s Notice of Privacy Practices. Cough: - Onset: Sunday, four days ago. - Described as "horrible" during coughing fits, with sensation deep in [...] Essential hypertension 03/05/2009 H/O MALIGNANT MELANOMA/PERS HX MOISES SKIN MELANOMA 06/03/2007 HYPERTENSION NOS 03/05/2009 Hypertrophy of prostate with urinary obstruction and other lower urinary tract symptoms (LUTS) 08/15/2007 Internal hemorrhoids without mention of complication MOISES NEOPL STOMACH NOS 09/04/2007 Pernicious anemia 09/13/2005 [...] DIAGNOSTIC 11/27/2006 LAPS SURG CHOLECYSTECTOMY W/CHOLANGIOGRAPHY 08/16/2017 [facility] PAST SURGICAL HISTORY OF November Total [...] (5oz) per week Drug use: No Comment: "not usually" BP 132/80 Pulse 74 Temp 37.1 C [...] cough and postnasal drainage; prescription sent to [facility] pharmacy. - Advised increased fluid intake and [...] 3 - Low documented in this encounter [facility] 11-25-2024 Instructions Negra Ugalde APRN.CNP - 11/25/2024 8:35 AM EDT - Prescription for a combination medication with a cough suppressant and antihistamine sent to [facility] pharmacy. - Drink plenty of fluids to help break up thick drainage. - Use a humidifier at night to alleviate coughing. - Let me know on Sunday if you are not feeling any better documented in this encounter [facility] 11-10-2024 Note HNO ID: [id number] Author: ?, ?, ? Service: ? Author Type: LICENSED NURSE Type: Progress Notes Filed: 11/10/2024 09:18 Note Text: Patient presents for B-12 injection. Denies any problems at this time. Patient instructed on any SE of medication, verbalized understanding and agreed to proceed with treatment. Tolerated injection well. Ramonita Trevino LPN [facility] 10-13-2024 Note HNO ID: [id number] Author: ?, ?, ? Service: ? Author Type: LICENSED NURSE Type: Progress Notes Filed: 10/13/2024 09:18 Note Text: Patient presents for B-12 injection. Denies any problems at this time. Patient instructed on any SE of medication, verbalized understanding and agreed to proceed with treatment. Tolerated injection well. Ramonita Trevino LPN [facility] 10-13-2024 History of Presen t illness Narrative Patient presents for B-12 injection. Denies any problems at this time. Patient instructed on any SE of medication, verbalized understanding and agreed to proceed with treatment. Tolerated injection well. Ramonita Trevino LPN documented in this encounter [facility] 09-24-2024 Telephone encounter Note Patient scheduled for nurse visit 10/13/24 to receive B-[address]. [address] order at this time. Ramonita Trevino LPN [facility] 09-24-2024 Miscellaneous Notes Patient scheduled for nurse visit 10/13/24 to receive B-[address] order at this time. Ramonita Trevino LPN documented in this encounter [facility] 09-08-2024 Note HNO ID: [id number] Author: RAMONITA TREVINO LPN Service: ? Author Type: LICENSED NURSE Type: Progress Notes Filed: 09/08/2024 08:47 Note Text: Patient presents for B-12 injection. Denies any problems at this time. Patient instructed on any SE of medication, verbalized understanding and agreed to proceed with treatment. Tolerated injection well. Ramonita Trevino LPN [facility] 09-08-2024 History of Presen t illness Narrative Patient presents for B-12 injection. Denies any problems at this time. Patient instructed on any SE of medication, verbalized understanding and agreed to proceed with treatment. Tolerated injection well. Ramonita Trevino LPN documented in this encounter [facility] 08-28-2024 Note HNO ID: [id number] Author: PIYUSH RIVERA MD Service: ? Author Type: Physician Type: Progress Notes Filed: 08/28/2024 14:17 Note Text: This note was created using [employer]. Subjective Heriberto Peñaloza is a 74 year [...] (5oz) per week Drug use: No Comment: "not usually" Current Outpatient Medications Medication Sig tamsulosin (FLOMAX) [...] ICD10: E55.9 - supplemented. Piyush Rivera MD [facility] 08-28-2024 History of Presen t illness Narrative This note was created using [employer]. Subjective Heriberto Peñaloza is a 74 year [...] (5oz) per week Drug use: No Comment: "not usually" Current Outpatient Medications Medication Sig tamsulosin (FLOMAX) [...] Piyush Rivera MD documented in this encounter [facility] 08-11-2024 Note HNO ID: [id number] Author: RAMONITA TREVINO LPN Service: ? Author Type: LICENSED NURSE Type: Progress Notes Filed: 08/11/2024 09:43 Note Text: Patient presents for B-12 injection. Denies any problems at this time. Patient instructed on any SE of medication, verbalized understanding and agreed to proceed with treatment. Tolerated injection well. Ramonita Trevino LPN [facility] 08-11-2024 History of Presen t illness Narrative Patient presents for B-12 injection. Denies any problems at this time. Patient instructed on any SE of medication, verbalized understanding and agreed to proceed with treatment. Tolerated injection well. Ramonita Trevino LPN documented in this encounter [facility] 07-07-2024 Note HNO ID: [id number] Author: RAMONITA TREVINO LPN Service: ? Author Type: LICENSED NURSE Type: Progress Notes Filed: 07/07/2024 09:05 Note Text: Patient presents for B-12 injection. Denies any problems at this time. Patient instructed on any SE of medication, verbalized understanding and agreed to proceed with treatment. Tolerated injection well. Ramonita Trevino LPN [facility] 07-07-2024 History of Presen t illness Narrative Patient presents for B-12 injection. Denies any problems at this time. Patient instructed on any SE of medication, verbalized understanding and agreed to proceed with treatment. Tolerated injection well. Ramonita Trevino LPN documented in this encounter [facility] 06-09-2024 Telephone encounter Note Prescription Refill Information [...] Bright LPN June 09, 2024 3:44 PM [facility] 06-09-2024 Miscellaneous Notes Prescription Refill Information The [...] local pharmacy while they prepare mail order Rahda Garcias June 09, 2024 11:13 AM documented in this encounter [facility] 06-09-2024 Telephone encounter Note Prescription Refill Information [...] Radha Garcias June 09, 2024 11:13 AM [facility] 06-09-2024 Telephone encounter Note Patient unable to get mail order until 06/13. Is currently out, asking for short term supply be sent to [facility]. [facility] 06-09-2024 Miscellaneous Notes Patient unable to get mail order until 06/13. Is currently out, asking for short term supply be sent to [facility]. documented in this encounter [facility] 06-09-2024 Note HNO ID: [id number] Author: RAMONITA TREVINO LPN Service: ? Author Type: LICENSED NURSE Type: Progress Notes Filed: 06/09/2024 09:45 Note Text: Patient presents for B-12 injection. Denies any problems at this time. Patient instructed on any SE of medication, verbalized understanding and agreed to proceed with treatment. Tolerated injection well. Ramonita Trevino LPN [facility] 06-09-2024 History of Presen t illness Narrative Patient presents for B-12 injection. Denies any problems at this time. Patient instructed on any SE of medication, verbalized understanding and agreed to proceed with treatment. Tolerated injection well. Ramonita Trevino LPN documented in this encounter [facility] 05-19-2024 Note HNO ID: [id number] Author: PIYUSH RIVERA MD Service: ? Author Type: Physician Type: Progress Notes Filed: 05/19/2024 15:30 Note Text: This note was created using [employer]. Subjective Heriberto Peñaloza is a 73 year [...] (5oz) per week Drug use: No Comment: "not usually" Current Outpatient Medications Medication Sig lisinopril (ZESTRIL) [...] 441.2, ICD10: I71.21 Stable. Piyush Rivera MD [facility] 05-19-2024 History of Presen t illness Narrative This note was created using [employer]. Subjective Heriberto Peñaloza is a 73 year [...] (5oz) per week Drug use: No Comment: "not usually" Current Outpatient Medications Medication Sig lisinopril (ZESTRIL) [...] Piyush Rivera MD documented in this encounter [facility] 05-19-2024 Telephone encounter Note Patient notified. Fatou Rodriguez LPN [facility] 05-19-2024 Miscellaneous Notes Patient notified. Fatou Rodriguez LPN Phoned patient left message to return call and ask to speak to a nurse. ----- Message from Piyush Rivera MD sent at 05/17/2024 3:57 PM EDT ----- chest X-ray within normal limits. documented in this encounter [facility] 05-19-2024 Telephone encounter Note Phoned patient left message to return call and ask to speak to a nurse. [facility] 05-19-2024 Telephone encounter Note ----- Message from Piyush Rivear MD sent at 05/17/2024 3:57 PM EDT ----- chest X-ray within normal limits. [facility] 05-14-2024 History of Presen t illness Narrative [...] PATIENT PRESENTS WITH AN IMPLANTABLE OR ATTACHED PRESSING DEPARTMENT SUPERVISOR: No RADIOLOGY DEPARTMENT: General X-ray: Exam(s) Completed: Chest X-Ray PERIPHERAL IV DATA: Not applicable SIGNED BY: RT Ruslan(Lindsey) May 14, 2024 8:26 AM documented in this encounter [facility] 05-14-2024 Note HNO ID: [id number] Author: ARAM PINA RT(R) Service: Radiology Author [...] PATIENT PRESENTS WITH AN IMPLANTABLE OR ATTACHED PRESSING DEPARTMENT SUPERVISOR: No RADIOLOGY DEPARTMENT: General X-ray: Exam(s) Completed: Chest X-Ray PERIPHERAL IV DATA: Not applicable SIGNED BY: RT Ruslan(R) May 14, 2024 8:26 AM [facility] 05-14-2024 Telephone encounter Note Improved BP. The following approved medication requests have been transmitted electronically. Requested Prescriptions Signed Prescriptions Disp Refills lisinopril (ZESTRIL) 20 mg tablet 30 tablet 5 Sig: Take 1 tablet by mouth once daily. Authorizing Provider: PIYUSH RIVERA MD [facility] 05-14-2024 Miscellaneous Notes Improved BP. The following [...] Ramonita Trevino LPN documented in this encounter [facility] 05-12-2024 Telephone encounter Note Patient here for [...] of higher Lisinopril dosing. Ramonita Trevino LPN [facility] 05-12-2024 Note HNO ID: [id number] Author: RAMONITA TREVINO LPN Service: ? Author Type: LICENSED NURSE Type: Progress Notes Filed: 05/12/2024 09:14 Note Text: Patient presents for B-12 injection. Denies any problems at this time. Patient instructed on any SE of medication, verbalized understanding and agreed to proceed with treatment. Tolerated injection well. Ramonita Trevino LPN [facility] 05-12-2024 History of Presen t illness Narrative Patient presents for B-12 injection. Denies any problems at this time. Patient instructed on any SE of medication, verbalized understanding and agreed to proceed with treatment. Tolerated injection well. Ramonita Trevino LPN documented in this encounter [facility] 04-16-2024 Instructions Piyush Rivera MD - 04/16/2024 9:01 AM EDT Increase lisinopril to 20 mg daily. Chest xray in 3 weeks. documented in this encounter [facility] 04-16-2024 Note HNO ID: [id number] Author: PIYUSH RIVERA MD Service: ? Author Type: Physician Type: Progress Notes Filed: 04/16/2024 09:10 Note Text: This note was created using [employer]. Subjective Heriberto Peñaloza is a 73 year [...] Mental Status: He is alert. Latest Ref Rn 04/14/2024 WBC 3.70 - 11.00 k/uL 6.06 [...] Abs Lymph 1.00 - 4.00 k/uL 2.01 Burnet% % 11.1 Abs Burnet <0.87 k/uL 0.67 Eosin% % 2.0 Abs [...] % (FLUSH) INJECTION SYRINGE Piyush Rivera MD [facility] 04-16-2024 History of Presen t illness Narrative This note was created using [employer]. Subjective Heriberto Peñaloza is a 73 year [...] Mental Status: He is alert. Latest Ref Rn 04/14/2024 WBC 3.70 - 11.00 k/uL 6.06 [...] Abs Lymph 1.00 - 4.00 k/uL 2.01 Burnet% % 11.1 Abs Burnet <0.87 k/uL 0.67 Eosin% % 2.0 Abs [...] Piyush Rivera MD documented in this encounter [facility] 04-15-2024 Telephone encounter Note I spoke with Negra Odonnell CNP in Dr. Rivera's office. She will make Dr. Rivera aware of the mildly elevated D-dimer. Patient is COVID-positive. He has a follow-up with PCP tomorrow. PCPs office is aware of the result. [facility] Work Phone: 04-15-2024 Miscellaneous Notes I spoke with Negra Odonnell CNP in Dr. Rivera's office. She will make Dr. Rivera aware of the mildly elevated D-dimer. Patient is COVID-positive. He has a follow-up with PCP tomorrow. PCPs office is aware of the result. documented in this encounter [facility] 04-15-2024 Telephone encounter Note Patient notified.Sadie Toscano LPN [facility] 04-15-2024 Miscellaneous Notes Patient notified.Sadie Toscano LPN Please contact patient and let him know he tested positive for COVID-19. He is out of the window for treatment with antiviral. Keep appointment with PCP follow-up tomorrow. documented in this encounter [facility] 04-15-2024 Telephone encounter Note Please contact patient and let him know he tested positive for COVID-19. He is out of the window for treatment with antiviral. Keep appointment with PCP follow-up tomorrow. [facility] Work Phone: 04-14-2024 History of Presen t [...] PATIENT PRESENTS WITH AN IMPLANTABLE OR ATTACHED PRESSING DEPARTMENT SUPERVISOR: No RADIOLOGY DEPARTMENT: General X-ray: Exam(s) Completed: Chest X-Ray PERIPHERAL IV DATA: Not applicable SIGNED BY: RT Ruslan(R) April 14, 2024 3:22 PM documented in this encounter [facility] 04-14-2024 Note HNO ID: [id number] Author: ARAM PINA RT(Lindsey) Service: Radiology Author Type: Technologist Type: Progress [...] PATIENT PRESENTS WITH AN IMPLANTABLE OR ATTACHED PRESSING DEPARTMENT SUPERVISOR: No RADIOLOGY DEPARTMENT: General X-ray: Exam(s) Completed: Chest X-Ray PERIPHERAL IV DATA: Not applicable SIGNED BY: RT Ruslan(Lindsey) April 14, 2024 3:22 PM [facility] 04-14-2024 Note HNO ID: [id number] Author: AMEYA AGUDELO MD Service: ? Author [...] or late onset fever. Ameya Agudelo MD [facility] 04-14-2024 History of Presen t illness Narrative [...] Ameya Agudelo MD documented in this encounter [facility] 04-07-2024 Telephone encounter Note Patient notified of below results/recommendations, verbalized understanding. Added BP daniel to next B-12 injection. Fatou Rodriguez LPN [facility] 04-07-2024 Miscellaneous Notes Patient notified of below [...] Ramonita Trevino LPN documented in this encounter [facility] 04-07-2024 Telephone encounter Note 1) Blood chemistry within normal limits. 2) Increase Lisinopril to 10 mg daily. Rx sent. 3) Continue amlodipine. 4) BP true with next B12 injection. [facility] 04-07-2024 Telephone encounter Note Patient in for [...] date and provider notified Ramonita Trevino LPN [facility] 04-07-2024 Note HNO ID: [id number] Author: RAMONITA TREVINO LPN Service: ? Author Type: LICENSED NURSE Type: Progress Notes Filed: 04/07/2024 09:20 Note Text: Patient presents for B-12 injection. Denies any problems at this time. Patient instructed on any SE of medication, verbalized understanding and agreed to proceed with treatment. Tolerated injection well. Ramonita Trevino LPN [facility] 04-07-2024 History of Presen t illness Narrative Patient presents for B-12 injection. Denies any problems at this time. Patient instructed on any SE of medication, verbalized understanding and agreed to proceed with treatment. Tolerated injection well. Ramonita Trevino LPN documented in this encounter [facility] 03-03-2024 Telephone encounter Note Patient notified of below recommendation, verbalized understanding. BP daniel added to next B-12 injection. 08/28/2024 appt changed to inoffice. Fatou Rodriguez LPN [facility] 03-03-2024 Miscellaneous Notes Patient notified of below [...] Ramonita Trevino LPN documented in this encounter [facility] 03-03-2024 Telephone encounter Note Add LISINOPRIL 5 mg daily to amlodipine. BP true with next B12 shot. Non fasting BMP with next B12 shot to monitor electrolytes, kidney function on new medication. Make August 2024 follow up in person, not video. [facility] 03-03-2024 Telephone encounter Note Patient was in office for B-12 administration. Did check BP before he left with reading of 146/73 d/t recent elevation in office. Patient requesting further instruction. Ramonita Trevino LPN [facility] 03-03-2024 Note HNO ID: [id number] Author: RAMONITA TREVINO LPN Service: ? Author Type: LICENSED NURSE Type: Progress Notes Filed: 03/03/2024 09:33 Note Text: Patient presents for B-12 injection. Denies any problems at this time. Patient instructed on any SE of medication, verbalized understanding and agreed to proceed with treatment. Tolerated injection well. Ramonita Trevino LPN [facility] 03-03-2024 History of Presen t illness Narrative Patient presents for B-12 injection. Denies any problems at this time. Patient instructed on any SE of medication, verbalized understanding and agreed to proceed with treatment. Tolerated injection well. Ramonita Trevino LPN documented in this encounter [facility] 02-27-2024 Telephone encounter Note Spoke with PSS regarding appt and recommendation to get pt scheduled. Ramonita Trevino LPN [facility] 02-27-2024 Miscellaneous Notes Spoke with PSS regarding appt and recommendation to get pt scheduled. Ramonita Trevino LPN Patient called to arrange his B 12 shot with you at 9 am on Mondays I see you are blocked for a mtg. Please call patient back. documented in this encounter [facility] 02-26-2024 Telephone encounter Note Patient called to arrange his B 12 shot with you at 9 am on Mondays I see you are blocked for a mtg. Please call patient back. [facility] 02-25-2024 Note HNO ID: [id number] Author: PIYUSH RIVERA MD Service: ? Author Type: Physician Type: Progress Notes Filed: 02/25/2024 17:55 Note Text: This note was created using Funky Movesriter. Subjective Heriberto Peñaloza is a 73 year [...] (Temporal) Resp 20 Ht 178.4 cm (5' 10.25") Wt 74.8 kg (165 lb) BMI 23.51 [...] vaccine - ICD9: V04.89, ICD10: Z23 - [email or web address] COVID-19 VACCINE (2022- SEASON) AGE 12+ YR 6. Vitamin D deficiency - ICD9: 268.9, ICD10: E55.9 Recheck level. Piyush Rivera MD [facility] 02-25-2024 History of Presen t illness Narrative [...] (Temporal) Resp 20 Ht 178.4 cm (5' 10.25") Wt 74.8 kg (165 lb) BMI 23.51 [...] vaccine - ICD9: V04.89, ICD10: Z23 - [email or web address] COVID-19 VACCINE (2022- SEASON) AGE 12+ YR [...] (Src) 98 (Temporal) Resp 20 Ht 5' 10.25" (1.78m) Wt 165 lb (74.8kg) BMI 23.52 kg/(m^2). Vision Screening: Follows with optometry/ophthalmology Right: 20/40 Left: 20/ 20 Both: 20/30 Assessment/Plan Medicare annual wellness visit, subsequent (Z00.00) - Counseled on healthy diet and regular exercise - Fall avoidance information provided - Personalized prevention plan provided - Covid booster recommended. documented in this encounter [facility] 02-25-2024 Note HNO ID: [id number] Author: PIYUSH RIVERA MD Service: ? Author [...] (Src) 98 (Temporal) Resp 20 Ht 5' 10.25" (1.78m) Wt 165 lb (74.8kg) BMI 23.52 kg/(m2). Vision Screening: Follows with optometry/ophthalmology Right: 20/40 Left: 20/ 20 Both: 20/30 Assessment/Plan Medicare annual wellness visit, subsequent (Z00.00) - Counseled on healthy diet and regular exercise - Fall avoidance information provided - Personalized prevention plan provided - Covid booster recommended. [facility] 02-20-2024 Telephone encounter Note Prescription Refill Information [...] Tami Vanegas February 20, 2024 9:15 AM [facility] 02-20-2024 Miscellaneous Notes Prescription Refill Information The [...] 2024 9:15 AM documented in this encounter [facility] 02-04-2024 Note HNO ID: [id number] Author: RAMONITA TREVINO LPN Service: ? Author Type: LICENSED NURSE Type: Progress Notes Filed: 02/04/2024 11:26 Note Text: Patient presents for B-12 injection. Denies any problems at this time. Patient instructed on any SE of medication, verbalized understanding and agreed to proceed with treatment. Tolerated injection well. Ramonita Trevino LPN [facility] 02-04-2024 History of Presen t illness Narrative Patient presents for B-12 injection. Denies any problems at this time. Patient instructed on any SE of medication, verbalized understanding and agreed to proceed with treatment. Tolerated injection well. Ramonita Trevino LPN documented in this encounter [facility] 01-30-2024 Telephone encounter Note Called patient and scheduled on 02/25/24 and advised to get labs before appointment. [facility] 01-30-2024 Miscellaneous Notes Called patient and scheduled on 02/25/24 and advised to get labs before appointment. Please schedule Medicare wellness visit with fasting labs prior Negra Ugalde APRN.CHILD WELFARE SOCIAL WORKER But in review pt would need new [...] policy.. Please advise. documented in this encounter [facility] 01-30-2024 Telephone encounter Note Please schedule Medicare wellness visit with fasting labs prior Negra Ugalde APRN.CHILD WELFARE SOCIAL WORKER [facility] 01-30-2024 Telephone encounter Note But in review pt would need new rx. Last seen pcp 02/12/23. Looks like 6 month follow up did not get arranged. Labs due? Arrange wellness for this month? [facility] 01-30-2024 Telephone encounter Note Will request PA to complete. [facility] 01-30-2024 Telephone encounter Note Pt came in to refill his D2. When I entered it, it gave me a warning that the formula that was prescribed was not the correct formulary for his insurance policy.. Please advise. [facility] 12-31-2023 History of Presen t illness Narrative Patient presents for B-12 injection. Denies any problems at this time. Patient instructed on any SE of medication, verbalized understanding and agreed to proceed with treatment. Tolerated injection well. Ramonita Trevino LPN documented in this encounter [facility] 11-26-2023 History of Presen t illness Narrative Patient presents for B-12 injection. Denies any problems at this time. Patient instructed on any SE of medication, verbalized understanding and agreed to proceed with treatment. Tolerated injection well. Ramonita Trevino LPN documented in this encounter [facility] 10-29-2023 History of Presen t illness Narrative Patient presents for B-12 injection. Denies any problems at this time. Patient instructed on any SE of medication, verbalized understanding and agreed to proceed with treatment. Tolerated injection well. Ramonita Trevino LPN documented in this encounter [facility] 10-01-2023 History of Presen t illness Narrative Patient presents for B-12 injection. Denies any problems at this time. Patient instructed on any SE of medication, verbalized understanding and agreed to proceed with treatment. Tolerated injection well. Ramonita Trevino LPN documented in this encounter [facility] 09-28-2023 Miscellaneous Notes Patient scheduled for nurse visit 10/01/23 to receive B-[address] new administration order at this time. Ramonita Trevino LPN documented in this encounter [facility] 07-02-2023 History of Presen t illness Narrative Patient presents for B-12 injection. Denies any problems at this time. Patient instructed on any SE of medication, verbalized understanding and agreed to proceed with treatment. Tolerated injection well. Ramonita Trevino LPN documented in this encounter [facility] 05-25-2023 History of Presen t illness Narrative Images from the original note were not included. This note was created using Needly. Subjective Heriberto Peñaloza is a 72 year [...] mcg INTRAMUSCULAR q 1 MONTH Older, Negra, CCNP.CHILD WELFARE SOCIAL WORKER 1,000 mcg at 04/02/23 0917 PAST SURGICAL HISTORY Procedure Laterality Date COLONOSCOPY FLX DX W/COLLJ SPEC WHEN PFRMD 11/27/2006 COLONOSCOPY FLX DX W/COLLJ SPEC WHEN PFRMD 12/25/2014 COLONOSCOPY FLX DX W/COLLJ SPEC WHEN PFRMD 04/21/2020 Colonoscopy CYSTOSCOPY,URETEROSCOPY,LITHOTR IPSY Right 01/10/2017 Stent placement, removal, 5/17/17; 01/03/17 ESOPHAGOGASTRODUODENOSCOPY TRANSORAL DIAGNOSTIC 11/27/2006 LAPS SURG CHOLECYSTECTOMY W/CHOLANGIOGRAPHY 08/16/2017 [facility] PAST SURGICAL HISTORY OF November Total [...] (5oz) per week Drug use: No Comment: "not usually" Objective BP 120/70 Pulse 80 Temp 36.2 [...] Karey Staton PA-C documented in this encounter [facility] 04-02-2023 History of Presen t illness Narrative Patient presents for B-12 injection. Denies any problems at this time. Patient instructed on any SE of medication, verbalized understanding and agreed to proceed with treatment. Tolerated injection well. Ramonita Trevino LPN documented in this encounter [facility] 02-12-2023 History of Presen t illness Narrative Ambulatory Ear Lavage Pre-treatment: Warm water Treatment: Left ear Equipment and Irrigation solution and Volume used: Single use syringe with single use irrigation tip Water Return flow appearance: Brown Patient tolerated procedure: yes Tympanic membrane assessment: Tympanic membrane assessed by LIP pre and post procedure This note was created using Needly. Subjective Heriberto Peñaloza is a 72 year [...] 80 Resp 16 Ht 178.4 cm (5' 10.25") Wt 76.2 kg (168 lb) BMI 23.93 [...] all Concerns with sexual function:Not at all [place] anxious, stressed, angry, irritable, lonely, isolated, or [...] 130/68 Pulse 80 Resp 16 Ht 5' 10.25" (1.78m) Wt 168 lb (76.2kg) BMI 23.94 kg/(m^2). Visual acuity (required for Welcome to Medicare): follows with optometry/ophthalmology and Right: 20/40 Left: 20/ 25 Both: 20/25 Hearing Evaluation: within normal limits Assessment/Plan - Counseled on healthy diet and regular exercise - Discussed need for and benefit of weight loss. BMI 23.93 kg/(m^2) - Fall avoidance documented in this encounter [facility] 02-12-2023 Instructions Piyush Rivera MD - 02/12/2023 2:04 PM EDT FASTING BLOOD WORK IN 6 MONTHS. documented in this encounter [facility] 02-09-2023 Miscellaneous Notes Lab notified. Leidy Granados MA [facility] [place] contacted office and indicated that patient has an appointment on Sunday with Dr. Cheng and here is to get his labs completed. There are no orders. Please contact [phone] once orders have been entered. Leidy Granados MA documented in this encounter [facility] 01-29-2023 History of Presen t illness Narrative Patient presents for B-12 injection. Denies any problems at this time. Patient instructed on any SE of medication, verbalized understanding and agreed to proceed with treatment. Tolerated injection well. Ramonita Trevino LPN documented in this encounter [facility] 12-25-2022 History of Presen t illness Narrative Patient presents for B-12 injection. Denies any problems at this time. Patient instructed on any SE of medication, verbalized understanding and agreed to proceed with treatment. Tolerated injection well. Ramonita Trevino LPN documented in this encounter [facility] 11-27-2022 History of Presen t illness Narrative Patient presents for B-12 injection. Denies any problems at this time. Patient instructed on any SE of medication, verbalized understanding and agreed to proceed with treatment. Tolerated injection well. Ramonita Trevino LPN documented in this encounter [facility] 10-30-2022 History of Presen t illness Narrative Patient presents for B-12 injection. Denies any problems at this time. Patient instructed on any SE of medication, verbalized understanding and agreed to proceed with treatment. Tolerated injection well. Ramonita Trevino LPN documented in this encounter [facility] 10-02-2022 History of Presen t illness Narrative Patient presents for B-12 injection. Denies any problems at this time. Patient instructed on any SE of medication, verbalized understanding and agreed to proceed with treatment. Tolerated injection well. Ramonita Trevino LPN documented in this encounter [facility] 09-26-2022 Miscellaneous Notes Patient scheduled for nurse visit 10/02/22 to receive B-[address] new administration order at this time. Ramonita Trevino LPN documented in this encounter [facility] 09-04-2022 History of Presen t illness Narrative Patient presents for B-12 injection. Denies any problems at this time. Patient instructed on any SE of medication, verbalized understanding and agreed to proceed with treatment. Tolerated injection well. Ramonita Trevino LPN documented in this encounter [facility] 07-31-2022 History of Presen t illness Narrative Patient presents for B-12 injection. Denies any problems at this time. Patient instructed on any SE of medication, verbalized understanding and agreed to proceed with treatment. Tolerated injection well. Ramonita Trevino LPN documented in this encounter [facility] 07-14-2022 History of Presen t illness Narrative This note was created using Bizwareter. Subjective Heriberto Peñaloza is a 72 year [...] Piyush Rivera MD documented in this encounter [facility] 07-03-2022 History of Presen t illness Narrative Patient presents for B-12 injection. Denies any problems at this time. Patient instructed on any SE of medication, verbalized understanding and agreed to proceed with treatment. Tolerated injection well. Ramonita Trevino LPN documented in this encounter [facility] 06-05-2022 History of Presen t illness Narrative Patient presents for B-12 injection. Denies any problems at this time. Patient instructed on any SE of medication, verbalized understanding and agreed to proceed with treatment. Tolerated injection well. Pt also to receive COVID and flu vaccines. Ramonita Trevino LPN documented in this encounter [facility] 05-03-2022 History of Presen t illness Narrative Patient presents for B-12 injection. Denies any problems at this time. Patient instructed on any SE of medication, verbalized understanding and agreed to proceed with treatment. Tolerated injection well. Ramonita Trevino LPN documented in this encounter [facility] 04-03-2022 History of Presen t illness Narrative Patient presents for B-12 injection. Denies any problems at this time. Patient instructed on any SE of medication, verbalized understanding and agreed to proceed with treatment. Tolerated injection well. Ramonita Trevino LPN documented in this encounter [facility] 03-29-2022 Miscellaneous Notes Noted Negra Odonnell APRN.CNP [...] test or he could go into the [facility] care if his my chart is not functioning. Patient said he will go to his my chart. Patient did not give any interest in oral antiviral medication. documented in this encounter [facility] 03-06-2022 History of Presen t illness Narrative Patient presents for B-12 injection. Denies any problems at this time. Patient instructed on any SE of medication, verbalized understanding and agreed to proceed with treatment. Tolerated injection well. Ramonita Trevino LPN documented in this encounter [facility] 02-20-2022 Miscellaneous Notes JED: 01/11/2022 Last refill: [...] Ayah Ely Pss documented in this encounter [facility] 01-30-2022 History of Presen t illness Narrative Patient presents for B-12 injection. Denies any problems at this time. Patient instructed on any SE of medication, verbalized understanding and agreed to proceed with treatment. Tolerated injection well. Ramonita Trevino LPN documented in this encounter [facility] 01-11-2022 History of Presen t illness Narrative [...] 2022 9:41 AM documented in this encounter [facility] 01-11-2022 History of Presen t illness Narrative This note was created using NoteWriter. Subjective Heriberto Peñalzoa is a 71 year old male. He [...] Artery) Resp 12 Ht 181.9 cm (5' 11.6") Wt 78 kg (172 lb) BMI 23.59 [...] vaccine - ICD9: V04.89, ICD10: Z23 - [employer] COVID-19 VACCINE, AGE 12+ YR (BUI TOP) [...] DIAGNOSTIC 11/27/2006 LAPS SURG CHOLECYSTECTOMY W/CHOLANGIOGRAPHY 08/16/2017 [facility] PAST SURGICAL HISTORY OF November Total [...] (5oz) per week Drug use: No Comment: "not usually" Heriberto likes to exercise by aerobics class/tape [...] Artery) Resp 12 Ht 181.9 cm (5' 11.6") Wt 78 kg (172 lb) BMI 23.59 [...] Piyush Rivera MD documented in this encounter [facility] 01-11-2022 Instructions Piyush Rivera MD - 01/11/2022 9:32 AM EDT Try compression stockings. Copy of living will please. documented in this encounter [facility] 12-28-2021 Miscellaneous Notes Patient has been identified [...] Rosa Branch RN documented in this encounter [facility] 12-26-2021 History of Presen t illness Narrative Patient presents for B-12 injection. Denies any problems at this time. Patient instructed on any SE of medication, verbalized understanding and agreed to proceed with treatment. Tolerated injection well. Ramonita Trevino LPN documented in this encounter [facility] 11-28-2021 History of Presen t illness Narrative Patient presents for B-12 injection. Denies any problems at this time. Patient instructed on any SE of medication, verbalized understanding and agreed to proceed with treatment. Tolerated injection well. Ramonita Trevino LPN documented in this encounter [facility] 01-27-2021 Note Procedure (SUSANA) HERIBERTO PÑEALOZA ([id number]) 1950 M NFR Date Time Provider Department 01/27/21 10:45 AM NEUR LAB MAIN 2 SUSANA During your visit today, we recorded the following information about you: Referring Provider: PIYUSH RIVERA [[id number]] Allergies As of Date: 01/27/2021 Noted Allergy Reaction POLYSPORIN (BACITRACIN-POLYMYXIN *07/15/2007 2 - Rash Date Reviewed: 01/03/2021 Reviewed by: Fatou Rodriguez LPN - Fully Assessed Reason for Visit: Musculoskeletal Problem [69] Visit Diagnoses:Left leg weakness [R29.898] Atrophy of muscle of left lower leg [M62.562] Weakness [R53.1] Order(s):EMG(NEURO/NI) [20101125] Order #: [id number]. #[id number]: [id number] Prescriptions as of 01/27/2021 Sig: AMLODIPINE [...] Routine general medical examination at a [facility]*02/01/2009 09/07/2015 Essential hypertension [I10] 03/05/2009 Melanocytic [...] of this encounter (statuses as of 11/28/2021) [place] [address]-11-2015 History of Past illness Narrative* Problem Noted [...] of this encounter (statuses as of 12/26/2021) [facility] of Past illness Narrative* Problem Noted [...] of this encounter (statuses as of 12/28/2021) [facility] History of Past illness Narrative* Problem Noted [...] of this encounter (statuses as of 01/11/2022) [facility] History of Past illness Narrative* Problem Noted [...] of this encounter (statuses as of 01/30/2022) [facility] of Past illness Narrative* Problem Noted [...] of this encounter (statuses as of 02/20/2022) [facility] of Past illness Narrative* Problem Noted [...] of this encounter (statuses as of 03/06/2022) [facility] of Past illness Narrative* Problem Noted [...] of this encounter (statuses as of 03/29/2022) [facility] of Past illness Narrative* Problem Noted [...] of this encounter (statuses as of 04/03/2022) [facility] of Past illness Narrative* Problem Noted [...] of this encounter (statuses as of 05/03/2022) [facility] of Past illness Narrative* Problem Noted [...] of this encounter (statuses as of 06/05/2022) [facility] of Past illness Narrative* Problem Noted [...] of this encounter (statuses as of 07/03/2022) [facility] of Past illness Narrative* Problem Noted [...] of this encounter (statuses as of 07/14/2022) [facility] of [facility] illness Narrative* Problem Noted [...] of this encounter (statuses as of 07/31/2022) [facility] Narrative* Problem Noted [...] of this encounter (statuses as of 09/04/2022) [facility] Narrative* Problem Noted [...] of this encounter (statuses as of 10/02/2022) [facility] Narrative* Problem Noted [...] of this encounter (statuses as of 10/19/2022) [facility] Narrative* Problem Noted [...] of this encounter (statuses as of 10/30/2022) [facility] of [facility] Narrative* Problem Noted [...] of this encounter (statuses as of 11/27/2022) [facility] of [facility] Narrative* Problem Noted [...] of this encounter (statuses as of 12/25/2022) [facility] Narrative* Problem Noted [...] of this encounter (statuses as of 01/29/2023) [facility] of Past [facility] Narrative* Problem Noted [...] 09/07/2015 H/O BCC//// of Other Malignant Neoplasm 10/2301/12/2017 Scar condition and fibrosis of skin 06/18/2009 [...] of this encounter (statuses as of 02/09/2023) [facility] of Past illness Narrative* Problem Noted [...] of this encounter (statuses as of 02/13/2023) [facility] of [facility] illness Narrative* Problem Noted [...] of this encounter (statuses as of 04/02/2023) [facility] Narrative* Problem Noted [...] of this encounter (statuses as of 05/25/2023) [facility] Narrative* Problem Noted [...] of this encounter (statuses as of 07/03/2023) [facility] Narrative* Problem Noted [...] of this encounter (statuses as of 10/01/2023) [facility] Narrative* Problem Noted [...] of this encounter (statuses as of 10/29/2023) [facility] Narrative* Problem Noted [...] of this encounter (statuses as of 11/26/2023) [facility] of Past illness Narrative* Problem Noted [...] of this encounter (statuses as of 10/03/2023) [facility] Deshawn Mendez [facility] Note Date/Time February 15, 2025 9:51 am [facility] Medical Records Department [address] [place] [address] Emergency Department Summary 02/15/25 MR#: [id number] Acct: [id number] Name: HERIBERTO PEÑALOZA Jr. Rep #:[id number] : 1950 74 From: Deshawn Juan PCP: Dr. Piyush Rivera MD Status:R EG ER Location: ED HPI History of Present Illness Chief Complaint: Complaint [facility] Medical History (Updated 02/15/25 @ 09:[address] Deshawn Mendez, DO) History of gastric cancer History of kidney stones Hypertension Acute calculous cholecystitis Home Medications ?Medication ?Instructions ?Recorded ?Last Taken ?Type amlodipine 10 mg tablet 10 mg PO DAILY blood pressur e 12/15/16 08/15/17 History aspirin 81 mg chewable tablet 81 mg PO QHS heart 12/1508/14/17 History finasteride 5 mg tablet 5 mg PO DAILY prostate 12/1508/14/17 History folic acid 400 mcg tablet 0.4 mg PO DAILY supplement 0 12/15/16 08/14/17 History xkalwnnu-ico-gpigv acid 0.4 1 ea PO DAILY supplement 0 12/15/16 08/14/17 History mg-lycopene 300 mcg-lutein 250 mcg tablet tamsulosin 0.4 mg capsule 0.4 mg PO QHS prostate 12/1508/14/17 History vitamin B complex 1 ea PO QMONTH 12/15/1606/27 History ergocalciferol (vitamin D2) 1,250 50,000 units PO MO s upplement 08/15/17 08/13/17 History mcg (50,000 unit) capsule ciprofloxacin HCl 500 mg tablet 500 mg PO BID #14 TABL ETS 02/15/25 Unknown Rx lisinopril 40 mg tablet 40 mg PO DAILY 02/15/25 Unkn own History Allergy/AdvReac Type Severity Reaction Status Date / Time No Known Allergies Allergy Verified 02/15/25 08:23 Surgical History (Updated 08/24/17 @ 08:48 by Luna Conde) S/P laparoscopic cholecystectomy (~08/16/17) Social History (Updated 08/28/17 @ 13:[address] Ruperto Berrios MD) Smoking Status: Former smoker EXAM Physical Exam Const Vital Signs: 02/15/25 08:23 Temperature 97.8 F Temperature Source Oral Pulse Rate 88 Respiratory Rate 16 Blood Pressure 154/81 H Blood Pressure Mean 105 Pulse Ox 99 Oxygen Delivery Method Room Air [facility] MDM Narrative Medical decision making narrative: HISTORY OF PRESENT ILLNESS: Chief complaint: Urinary retention 74-year-old male history of hypertension, BPH on tamsulosin and finasteride presents with inability urinate. He states this began []. He endorses dribbling a few drops. Endorses constant pressure and urge to urinate. Notes lower abdominal pain as well. REVIEW OF SYSTEMS: Pertinent positives: Urinary retention Pertinent negatives: As per HPI PHYSICAL EXAM: Nursing triage notes reviewed, Vital signs reviewed Constitutional: please see mdm HENT: MMM Eyes: Pupils equal round and reactive to light, Extraocular muscles intact Neck: No stridor, no JVD, full neck ROM Lungs: Clear to auscultation, No wheezing or rales. No increased work of breathing, no conversational dyspnea, no accessory muscle use, no nasal flaring. No respiratory distress noted Heart: Regular rate and rhythm, No murmurs, No rubs and No gallops, 2+ distal pulses (radial, femoral, posterior tibial) in all extremities Abdomen: Soft, there is no tenderness, obvious distention to lower abdomen over bladder, no rigidity, rebound or guarding, no obvious peritoneal signs, no palpable pulsatile abdominal masses, no auscultated abdominal bruit : No CVAT Extremities: No edema Neuro: No new focal neurological deficits, cranial nerves II through XII intact, 5/5 strength in all present extremities. Intact sensation to light touch in all present extremities, 2+ reflexes bilateral patella tendons. Skin: No rash or lesions noted MEDICAL DECISION MAKING: Chief Complaint: please see HPI External records reviewed: Reviewed prior imaging studies, reviewed current medications Factors affecting care: history of nephrolithiasis, BPH Social determinants of health: none History obtained from others: none Consults: none [facility] Narrative: The patient was initially hemodynamically stable, afebrile and nontoxic- appearing. Exam consistent with urinary tension. Bedside bladder scan showed bladder volume approximate 850 cc I considered the following differential diagnosis: Urinary retention, ALICIA, UTI I obtained labs including BMP and urinalysis to assess if there is any sign of ALICIA or UTI. Mcmahon catheter was placed with return of approximately 1 L of clear urine. Patient noted immediate relief. ALL IMAGES (IF OBTAINED) HAVE BEEN PERSONALLY REVIEWED AND INTERPRETED BY MYSELF. CBC without leukocytosis, severe anemia, no thrombocytopenia. CMP without evidence of acute kidney injury, significant electrolyte abnormality, anion gap to suggest end organ hypo-perfusion, no evidence of metabolic acidosis with a normal bicarbonate, no evidence of hepatobiliary obstructive pathology Urinalysis, urine culture pending. Will prophylactically treat with antibiotics given urinary retention and recent urethral manipulation with Mcmahon catheter placement. Will give instructions on Mcmahon catheter management, return precautions, follow-up instructions with urology. The patient and/or family, caregivers express understanding. The patient and/or family, caregivers agrees with the plan. Shared decision making: I will have a discussion with the patient and or visitors regarding risk/benefits of further testing or admission. They will be made aware of of the risk/benefits inherent in this decision they will be given the opportunity to voice understanding. Total critical care time today provided was at least 0 minutes. This excludes separately billable procedures. Critical care time (if documented) is secondary to the patient having high probability of clinically significant/life threatening deterioration in the patient's condition which required my urgent intervention. Impression: 1. Urinary tension 2. History of BPH Dispo: Discharge home This note was generated with [employer] dictation software. It may contain incorrect words, spelling, and punctuation that were not noted in review of the chart prior to signing. Lab Data Labs: Laboratory Results - last 24 hr 02/15/25 08:55 WBC 9.7 RBC 4.57 L Hgb 13.2 Hct 40.0 MCV 87.5 MCH 28.9 MCHC 33.0 RDW Std Deviation 45.8 H RDW Coeff of Gogo 14.4 Plt Count 183 MPV 11.1 Immature Gran % (Auto) 0.500 Neut % (Auto) 79.4 H Lymph % (Auto) 11.3 L Burnet % (Auto) 8.3 Eos % (Auto) 0.2 Baso % (Auto) 0.3 Absolute Neuts (auto) 7.7 Absolute Lymphs (auto) 1.09 Nucleated RBC % 0 Sodium 140 Potassium 3.9 Chloride 104 Carbon Dioxide 25.1 Anion Gap 11 BUN 17 Creatinine 1.16 Estim Creat Clear Calc 59.50 Est GFR (MDRD) Non-Af 66 BUN/Creatinine Ratio 14.7 Glucose 123 H Calcium 9.1 Discharge Plan Triage Chief Complaint: Complaint ED Provider: Deshawn Mendez Dx/Rx/DC Orders Clinical Impression: Urinary retention Instructions: ED Mcmahon Catheter, Care, ED Urinary Retention, Male Prescriptions: New ciprofloxacin HCl 500 mg tablet 500 mg PO BID Qty: 14 0RF No Action folic acid 0.4 MG tablet 0.4 mg PO DAILY Patient Comments: supplement tamsulosin 0.4 MG capsule 0.4 mg PO QHS Patient Comments: prostate amlodipine 10 MG tablet 10 mg PO DAILY Patient Comments: blood pressure aspirin 81 MG tablet,chewable 81 mg PO QHS Patient Comments: health maintenance finasteride 5 MG tablet 5 mg PO DAILY Patient Comments: prostate vitamin B complex 1 EACH capsule 1 ea PO QMONTH Patient Comments: supplement mropbyfc-oyq-RQ-lycopen-lutein 1 EACH tablet 1 ea PO DAILY Patient Comments: supplement ergocalciferol (vitamin D2) 50,000 U capsule 50,000 units PO MO Patient Comments: lisinopril 40 mg tablet 40 mg PO DAILY Primary Care Provider: Piyush Rivera Referrals: Torsten Gregg MD [Med Staff - Active Staff] - Activity Restrictions/Additional Instructions: Thank you for trusting us with your care today! Your history, physical exam and labs were most consistent with urinary retention. Please keep Mcmahon in place until you follow-up with urology as an outpatient. You have been prescribed antibiotics given Mcmahon catheter increased risk of infection please take antibiotics as prescribed. Please take Tylenol (2 pills, 650 mg), ibuprofen (2 pills, 400 mg) every 6 hoursas needed for pain and fever control. Please return to the emergency department if your symptoms change or worsen. Please follow with your primary care physician for further outpatient evaluationand management. Print Language: Barbadian Disposition Disposition: Home, Self Care What to do if you have Problems For any increased pain, shortness of breath, bleeding, nausea or vomiting, chestpain, or any unexpected problems, contact your Primary Care Provider. Call [facility] ([phone]) or report to the closest Emergency Room. Call 911 if necessary. 02/15/25 0983 <Electronically signed by Deshawn Mendez DO> Cosigner Signature (if applicable): CC: Dr. Piyush Rivera MD ~ Signed [facility] Work Phone: Evaluation note* Diagnosis Pernicious anemia- Primary documented in this encounter [facility] note* Diagnosis Pernicious anemia- Primary documented in this encounter [facility] note* Diagnosis Medicare annual wellness visit, subsequent- Primary Routine general medical examination at a health care facility Essential hypertension Unspecified essential hypertension Wheezing Need for COVID-19 vaccine Pernicious anemia Venous insufficiency of both lower extremities documented in this encounter [facility] note* Diagnosis Pernicious anemia- Primary documented in this encounter [facility] note* Diagnosis Pernicious anemia- Primary documented in this encounter [facility] note* Diagnosis Pernicious anemia- Primary documented in this encounter [facility] noteNo assessment information availableWAshtab[facility] Work Phone: Evaluation note* Diagnosis Pernicious anemia- Primary Need for vaccination Need for prophylactic vaccination and inoculation against unspecified single disease Need for influenza vaccination Need for prophylactic vaccination and inoculation against influenza documented in this encounter [facility] note* Diagnosis Essential hypertension- Primary Unspecified essential hypertension Pernicious anemia Venous insufficiency of both lower extremities Atrophy of muscle of left lower leg Left leg weakness Other musculoskeletal symptoms referable to limbs Raynaud's phenomenon without gangrene documented in this encounter [facility] note* Diagnosis Pernicious anemia- Primary documented in this encounter [facility] note* Diagnosis Pernicious anemia- Primary [facility] Diagnosis Pernicious anemia- Primary [facility]* Diagnosis Essential hypertension- Primary Unspecified essential hypertension Vitamin D deficiency Unspecified vitamin D deficiency [facility]* Diagnosis Medicare annual wellness visit, subsequent- Primary Routine general medical examination at a health care facility Pernicious anemia Essential hypertension Unspecified essential hypertension Vitamin D deficiency Unspecified vitamin D deficiency Numbness of left thumb Impacted cerumen of left ear Impacted cerumen Hyperglycemia Other abnormal glucose [facility]* Diagnosis Pernicious anemia- Primary [facility]* Diagnosis Leg wound, left, initial encounter- Primary [facility] Diagnosis Pernicious anemia- Primary [facility]* Diagnosis Pernicious anemia- Primary [facility]* Diagnosis Pernicious anemia- Primary [facility]* Diagnosis Pernicious anemia- Primary Essential hypertension Unspecified essential hypertension Vitamin D deficiency Unspecified vitamin D deficiency Hyperglycemia Other abnormal glucose [facility]* Diagnosis Medicare annual wellness visit, subsequent- Primary Routine general medical examination at a health care facility Essential hypertension Unspecified essential hypertension Pernicious anemia Venous insufficiency of both lower extremities Need for COVID-19 vaccine Vitamin D deficiency Unspecified vitamin D deficiency [facility]* Diagnosis Pernicious anemia- Primary [facility]* Diagnosis Essential hypertension- Primary Unspecified essential hypertension documented [facility]* Diagnosis Pernicious anemia- Primary documented [facility]* Diagnosis Essential hypertension- Primary Unspecified essential hypertension [facility]* Diagnosis Acute cough- Primary Pleural effusion Unspecified pleural effusion Acute cough [facility]* Diagnosis COVID-19- Primary Pleural effusion Unspecified pleural effusion Abnormal blood chemistry Other abnormal blood chemistry Essential hypertension Unspecified essential hypertension Abnormal EKG Nonspecific abnormal electrocardiogram (ECG) (EKG) documented [facility] Diagnosis [facility] Diagnosis Pernicious anemia- Primary [facility]* Diagnosis Essential hypertension Unspecified essential hypertension [facility] Diagnosis Pleural effusion Unspecified pleural effusion [facility]* Diagnosis Essential hypertension- Primary Unspecified essential hypertension Need for influenza vaccination Need for prophylactic vaccination and inoculation against influenza Aneurysm of ascending aorta without rupture (HCC) documented [facility]* Diagnosis Wheezing [facility]* Diagnosis Pernicious anemia- Primary [facility]* Diagnosis Pernicious anemia- Primary [facility]* Diagnosis Essential hypertension- Primary Unspecified essential hypertension Encounter for immunization Need for other specified prophylactic vaccination against single bacterial disease Pernicious anemia Vitamin D deficiency Unspecified vitamin D deficiency documented [facility]* Diagnosis Pernicious anemia- Primary [facility]* Diagnosis Pernicious anemia- Primary [facility]* Diagnosis Viral URI with cough- Primary Acute upper respiratory infections of unspecified site documented [facility]* Diagnosis Vitamin B12 deficiency- Primary Other B-complex deficiencies documented in this encounter [facility] note* Diagnosis Vitamin B12 deficiency- Primary Other B-complex deficiencies [facility] Additional Instructions Thank you for trusting us with your care today! Your history, physical exam and labs were most consistent with urinary retention. Please keep Mcmahon in place until you follow-up with urology as an outpatient. You have been prescribed antibiotics given Mcmahon catheter increased risk of infection please take antibiotics as prescribed. Please take Tylenol (2 pills, 650 mg), ibuprofen (2 pills, 400 mg) every 6 hours as needed for pain and fever control. Please return to the emergency department if your symptoms change or worsen. Please follow with your primary care physician for further outpatient evaluation and management.[facility] Work Phone: Reason for referral (narrative)* Outpatient Procedure (Routine) - Authorized Specialty Diagnoses / Procedures Referred By Contac t Ref[facility] To [facility] Diagnoses Abnormal EKG Procedures ECHO ECHO TTC R-T 2D W/WOM-MODE COMPL SPEC&COLR D Piyush Rivera MD [address] [place] [address] [facility] [address] [place] [address] Referral ID Status Reason Start Date Expiration Date Visits Requested Visits Authorized [id number] Authorized Auto-Generat ed Referral 04/16/2024 04/16/2025 1 1 * Outpatient Procedure (Routine) - New Request Specialty Diagnoses / Procedures Referred By Contac t Referred To Contact [facility] Diagnoses Pleural effusion Procedures ECG COMPLETE ECG ROUTINE ECG W/LEAST 12 LDS W/I&R Piyush Rivera MD [address] [place] [address] [facility] [address] [place] [address] Referral ID Status Reason Start Date Expiration Date Visits Requested Visits Authorized [id number] New Request Auto-Generat ed Referral 04/16/2024 04/16/2025 1 1 [facility] for referral (narrative)No reason for referral information availableWAshtabula [facility] Work Phone: Summary Purpose Family History Relationship Condition Age at Onset Recorded Date/T roshan Unknown Family History?No pe rtinent history Unknown January 02, 2017 5:07pm Family History?No pe rtinent history Unknown August 15, 2017 7:12pm Advance Directives Documents on File Type Date Recorded Patient Hearings Reporter Expl anation Advance Directive(s) 04/21/2020 7:33 AM Advance Directive(s) 04/07/2020 4:19 PM Advance Directive Response Recorded Date/ Time Living Will Yes April 21 8 3:31pm Power of Middleware Architect Yes April 21 018 3:31pm Advance Directive Response Recorded Date/ Time Do you have a Healthcare Power of Middleware Architect? No February 15, 2025 8:23am Medications Administered Section Active Administered Medications - [...] on Sun10/02/22 at 0000, Last dose on 1/2/24 at 0000 Given 07/02/2023 9:23 AM EST 1,000 mcg Deltoid, Left Given 2023 9:32 AM EDT 1,000 mcg De ltoid, Right Given 04/02/2023 9:17 AM EDT 1,000 mcg De ltoid, Left Chief Complaint and Reason for Visit Chief Complaint PSA Chief Complaint Admit Date R97.20 Elevated prostate specific antige n [PSA] December 25, 2024 10:48am [id number] January 08, 2025 9:58a m Chief Complaint Admit Date R97.20 Elevated prostate specific antige n [PSA] December 25, 2024 10:48am [id number] January 08, 2025 9:58a m unable to urinate February 15, 2025 8:23 am Additional Source Comments (unrecognized sect ion and content) No Status Records FoundNo Status Records FoundNo Status Records Found INFORMATION SOURCE (unrecogn ized section and content) DATE CREATED AUTHOR 01/31/2021 [facility] DATE CREATED AUTHOR AUTHOR'S ORGANIZ ATION 02/02/2025 [facility] DATE CREATED AUTHOR AUTHOR'S ORGANIZ ATION 02/24/2025 [facility] Source Comments (unrecognize d section and content) In the event this informatio n is protected by the Federal Confidentiality of Alcohol and Drug Abuse Patient Records regulations: The Federal rules restrict any use of the information to criminally investigate or prosecute any alcohol or drug abuse patient.[facility] the event this information is protected by the Federal Confidentiality of Alcohol and Drug Abuse Patient Records regulations: The Federal rules restrict any use of the information to criminally investigate or prosecute any alcohol or drug abuse patient.[facility] HospitalIn the event this information is protected by the Federal Confidentiality of Alcohol and Drug Abuse Patient Records regulations: The Federal rules restrict any use of the information to criminally investigate or prosecute any alcohol or drug abuse patient.[facility] HospitalIn the event this information is protected by the Federal Confidentiality of Alcohol and Drug Abuse Patient Records regulations: The Federal rules restrict any use of the information to criminally investigate or prosecute any alcohol or drug abuse patient.[facility] HospitalIn the event this information is protected by the Federal Confidentiality of Alcohol and Drug Abuse Patient Records regulations: The Federal rules restrict any use of the information to criminally investigate or prosecute any alcohol or drug abuse patient.[facility] HospitalIn the event this information is protected by the Federal Confidentiality of Alcohol and Drug Abuse Patient Records regulations: The Federal rules restrict any use of the information to criminally investigate or prosecute any alcohol or drug abuse patient.[facility] HospitalIn the event this information is protected by the Federal Confidentiality of Alcohol and Drug Abuse Patient Records regulations: The Federal rules restrict any use of the information to criminally investigate or prosecute any alcohol or drug abuse patient.[facility] HospitalIn the event this information is protected by the Federal Confidentiality of Alcohol and Drug Abuse Patient Records regulations: The Federal rules restrict any use of the information to criminally investigate or prosecute any alcohol or drug abuse patient.[facility] HospitalIn the event this information is protected by the Federal Confidentiality of Alcohol and Drug Abuse Patient Records regulations: The Federal rules restrict any use of the information to criminally investigate or prosecute any alcohol or drug abuse patient.[facility] HospitalIn the event this information is protected by the Federal Confidentiality of Alcohol and Drug Abuse Patient Records regulations: The Federal rules restrict any use of the information to criminally investigate or prosecute any alcohol or drug abuse patient.[facility] HospitalIn the event this information is protected by the Federal Confidentiality of Alcohol and Drug Abuse Patient Records regulations: The Federal rules restrict any use of the information to criminally investigate or prosecute any alcohol or drug abuse patient.[facility] HospitalIn the event this information is protected by the Federal Confidentiality of Alcohol and Drug Abuse Patient Records regulations: The Federal rules restrict any use of the information to criminally investigate or prosecute any alcohol or drug abuse patient.[facility] HospitalIn the event this information is protected by the Federal Confidentiality of Alcohol and Drug Abuse Patient Records regulations: The Federal rules restrict any use of the information to criminally investigate or prosecute any alcohol or drug abuse patient.[facility] HospitalIn the event this information is protected by the Federal Confidentiality of Alcohol and Drug Abuse Patient Records regulations: The Federal rules restrict any use of the information to criminally investigate or prosecute any alcohol or drug abuse patient.[facility] HospitalIn the event this information is protected by the Federal Confidentiality of Alcohol and Drug Abuse Patient Records regulations: The Federal rules restrict any use of the information to criminally investigate or prosecute any alcohol or drug abuse patient.[facility] HospitalIn the event this information is protected by the Federal Confidentiality of Alcohol and Drug Abuse Patient Records regulations: The Federal rules restrict any use of the information to criminally investigate or prosecute any alcohol or drug abuse patient.[facility] HospitalIn the event this information is protected by the Federal Confidentiality of Alcohol and Drug Abuse Patient Records regulations: The Federal rules restrict any use of the information to criminally investigate or prosecute any alcohol or drug abuse patient.[facility] HospitalIn the event this information is protected by the Federal Confidentiality of Alcohol and Drug Abuse Patient Records regulations: The Federal rules restrict any use of the information to criminally investigate or prosecute any alcohol or drug abuse patient.[facility] HospitalIn the event this information is protected by the Federal Confidentiality of Alcohol and Drug Abuse Patient Records regulations: The Federal rules restrict any use of the information to criminally investigate or prosecute any alcohol or drug abuse patient.[facility] HospitalIn the event this information is protected by the Federal Confidentiality of Alcohol and Drug Abuse Patient Records regulations: The Federal rules restrict any use of the information to criminally investigate or prosecute any alcohol or drug abuse patient.[facility] HospitalIn the event this information is protected by the Federal Confidentiality of Alcohol and Drug Abuse Patient Records regulations: The Federal rules restrict any use of the information to criminally investigate or prosecute any alcohol or drug abuse patient.[facility] HospitalIn the event this information is protected by the Federal Confidentiality of Alcohol and Drug Abuse Patient Records regulations: The Federal rules restrict any use of the information to criminally investigate or prosecute any alcohol or drug abuse patient.[facility] HospitalIn the event this information is protected by the Federal Confidentiality of Alcohol and Drug Abuse Patient Records regulations: The Federal rules restrict any use of the information to criminally investigate or prosecute any alcohol or drug abuse patient.[facility] HospitalIn the event this information is protected by the Federal Confidentiality of Alcohol and Drug Abuse Patient Records regulations: The Federal rules restrict any use of the information to criminally investigate or prosecute any alcohol or drug abuse patient.[facility] HospitalIn the event this information is protected by the Federal Confidentiality of Alcohol and Drug Abuse Patient Records regulations: The Federal rules restrict any use of the information to criminally investigate or prosecute any alcohol or drug abuse patient.[facility] HospitalIn the event this information is protected by the Federal Confidentiality of Alcohol and Drug Abuse Patient Records regulations: The Federal rules restrict any use of the information to criminally investigate or prosecute any alcohol or drug abuse patient.[facility] HospitalIn the event this information is protected by the Federal Confidentiality of Alcohol and Drug Abuse Patient Records regulations: The Federal rules restrict any use of the information to criminally investigate or prosecute any alcohol or drug abuse patient.[facility] HospitalIn the event this information is protected by the Federal Confidentiality of Alcohol and Drug Abuse Patient Records regulations: The Federal rules restrict any use of the information to criminally investigate or prosecute any alcohol or drug abuse patient.[facility] HospitalIn the event this information is protected by the Federal Confidentiality of Alcohol and Drug Abuse Patient Records regulations: The Federal rules restrict any use of the information to criminally investigate or prosecute any alcohol or drug abuse patient.[facility] HospitalIn the event this information is protected by the Federal Confidentiality of Alcohol and Drug Abuse Patient Records regulations: The Federal rules restrict any use of the information to criminally investigate or prosecute any alcohol or drug abuse patient.[facility] HospitalIn the event this information is protected by the Federal Confidentiality of Alcohol and Drug Abuse Patient Records regulations: The Federal rules restrict any use of the information to criminally investigate or prosecute any alcohol or drug abuse patient.[facility] HospitalIn the event this information is protected by the Federal Confidentiality of Alcohol and Drug Abuse Patient Records regulations: The Federal rules restrict any use of the information to criminally investigate or prosecute any alcohol or drug abuse patient.[facility] HospitalIn the event this information is protected by the Federal Confidentiality of Alcohol and Drug Abuse Patient Records regulations: The Federal rules restrict any use of the information to criminally investigate or prosecute any alcohol or drug abuse patient.[facility] HospitalIn the event this information is protected by the Federal Confidentiality of Alcohol and Drug Abuse Patient Records regulations: The Federal rules restrict any use of the information to criminally investigate or prosecute any alcohol or drug abuse patient.[facility] HospitalIn the event this information is protected by the Federal Confidentiality of Alcohol and Drug Abuse Patient Records regulations: The Federal rules restrict any use of the information to criminally investigate or prosecute any alcohol or drug abuse patient.[facility] HospitalIn the event this information is protected by the Federal Confidentiality of Alcohol and Drug Abuse Patient Records regulations: The Federal rules restrict any use of the information to criminally investigate or prosecute any alcohol or drug abuse patient.[facility] HospitalIn the event this information is protected by the Federal Confidentiality of Alcohol and Drug Abuse Patient Records regulations: The Federal rules restrict any use of the information to criminally investigate or prosecute any alcohol or drug abuse patient.[facility] HospitalIn the event this information is protected by the Federal Confidentiality of Alcohol and Drug Abuse Patient Records regulations: The Federal rules restrict any use of the information to criminally investigate or prosecute any alcohol or drug abuse patient.[facility] HospitalIn the event this information is protected by the Federal Confidentiality of Alcohol and Drug Abuse Patient Records regulations: The Federal rules restrict any use of the information to criminally investigate or prosecute any alcohol or drug abuse patient.[facility] HospitalIn the event this information is protected by the Federal Confidentiality of Alcohol and Drug Abuse Patient Records regulations: The Federal rules restrict any use of the information to criminally investigate or prosecute any alcohol or drug abuse patient.[facility] HospitalIn the event this information is protected by the Federal Confidentiality of Alcohol and Drug Abuse Patient Records regulations: The Federal rules restrict any use of the information to criminally investigate or prosecute any alcohol or drug abuse patient.[facility] HospitalIn the event this information is protected by the Federal Confidentiality of Alcohol and Drug Abuse Patient Records regulations: The Federal rules restrict any use of the information to criminally investigate or prosecute any alcohol or drug abuse patient.[facility] HospitalIn the event this information is protected by the Federal Confidentiality of Alcohol and Drug Abuse Patient Records regulations: The Federal rules restrict any use of the information to criminally investigate or prosecute any alcohol or drug abuse patient.[facility] HospitalIn the event this information is protected by the Federal Confidentiality of Alcohol and Drug Abuse Patient Records regulations: The Federal rules restrict any use of the information to criminally investigate or prosecute any alcohol or drug abuse patient.[facility] HospitalIn the event this information is protected by the Federal Confidentiality of Alcohol and Drug Abuse Patient Records regulations: The Federal rules restrict any use of the information to criminally investigate or prosecute any alcohol or drug abuse patient.[facility] HospitalIn the event this information is protected by the Federal Confidentiality of Alcohol and Drug Abuse Patient Records regulations: The Federal rules restrict any use of the information to criminally investigate or prosecute any alcohol or drug abuse patient.[facility] HospitalIn the event this information is protected by the Federal Confidentiality of Alcohol and Drug Abuse Patient Records regulations: The Federal rules restrict any use of the information to criminally investigate or prosecute any alcohol or drug abuse patient.[facility] HospitalIn the event this information is protected by the Federal Confidentiality of Alcohol and Drug Abuse Patient Records regulations: The Federal rules restrict any use of the information to criminally investigate or prosecute any alcohol or drug abuse patient.[facility] HospitalIn the event this information is protected by the Federal Confidentiality of Alcohol and Drug Abuse Patient Records regulations: The Federal rules restrict any use of the information to criminally investigate or prosecute any alcohol or drug abuse patient.[facility] HospitalIn the event this information is protected by the Federal Confidentiality of Alcohol and Drug Abuse Patient Records regulations: The Federal rules restrict any use of the information to criminally investigate or prosecute any alcohol or drug abuse patient.[facility] HospitalIn the event this information is protected by the Federal Confidentiality of Alcohol and Drug Abuse Patient Records regulations: The Federal rules restrict any use of the information to criminally investigate or prosecute any alcohol or drug abuse patient.[facility] HospitalIn the event this information is protected by the Federal Confidentiality of Alcohol and Drug Abuse Patient Records regulations: The Federal rules restrict any use of the information to criminally investigate or prosecute any alcohol or drug abuse patient.[facility] HospitalIn the event this information is protected by the Federal Confidentiality of Alcohol and Drug Abuse Patient Records regulations: The Federal rules restrict any use of the information to criminally investigate or prosecute any alcohol or drug abuse patient.[facility] HospitalIn the event this information is protected by the Federal Confidentiality of Alcohol and Drug Abuse Patient Records regulations: The Federal rules restrict any use of the information to criminally investigate or prosecute any alcohol or drug abuse patient.[facility] HospitalIn the event this information is protected by the Federal Confidentiality of Alcohol and Drug Abuse Patient Records regulations: The Federal rules restrict any use of the information to criminally investigate or prosecute any alcohol or drug abuse patient.[facility] HospitalIn the event this information is protected by the Federal Confidentiality of Alcohol and Drug Abuse Patient Records regulations: The Federal rules restrict any use of the information to criminally investigate or prosecute any alcohol or drug abuse patient.[facility] HospitalIn the event this information is protected by the Federal Confidentiality of Alcohol and Drug Abuse Patient Records regulations: The Federal rules restrict any use of the information to criminally investigate or prosecute any alcohol or drug abuse patient.[facility] HospitalIn the event this information is protected by the Federal Confidentiality of Alcohol and Drug Abuse Patient Records regulations: The Federal rules restrict any use of the information to criminally investigate or prosecute any alcohol or drug abuse patient.[facility] HospitalIn the event this information is protected by the Federal Confidentiality of Alcohol and Drug Abuse Patient Records regulations: The Federal rules restrict any use of the information to criminally investigate or prosecute any alcohol or drug abuse patient.[facility] HospitalIn the event this information is protected by the Federal Confidentiality of Alcohol and Drug Abuse Patient Records regulations: The Federal rules restrict any use of the information to criminally investigate or prosecute any alcohol or drug abuse patient.[facility] HospitalIn the event this information is protected by the Federal Confidentiality of Alcohol and Drug Abuse Patient Records regulations: The Federal rules restrict any use of the information to criminally investigate or prosecute any alcohol or drug abuse patient.[facility] HospitalIn the event this information is protected by the Federal Confidentiality of Alcohol and Drug Abuse Patient Records regulations: The Federal rules restrict any use of the information to criminally investigate or prosecute any alcohol or drug abuse patient.[facility] HospitalIn the event this information is protected by the Federal Confidentiality of Alcohol and Drug Abuse Patient Records regulations: The Federal rules restrict any use of the information to criminally investigate or prosecute any alcohol or drug abuse patient.[facility] HospitalIn the event this information is protected by the Federal Confidentiality of Alcohol and Drug Abuse Patient Records regulations: The Federal rules restrict any use of the information to criminally investigate or prosecute any alcohol or drug abuse patient.[facility] HospitalIn the event this information is protected by the Federal Confidentiality of Alcohol and Drug Abuse Patient Records regulations: The Federal rules restrict any use of the information to criminally investigate or prosecute any alcohol or drug abuse patient.[facility] HospitalIn the event this information is protected by the Federal Confidentiality of Alcohol and Drug Abuse Patient Records regulations: The Federal rules restrict any use of the information to criminally investigate or prosecute any alcohol or drug abuse patient.[facility] HospitalIn the event this information is protected by the Federal Confidentiality of Alcohol and Drug Abuse Patient Records regulations: The Federal rules restrict any use of the information to criminally investigate or prosecute any alcohol or drug abuse patient.[facility] HospitalIn the event this information is protected by the Federal Confidentiality of Alcohol and Drug Abuse Patient Records regulations: The Federal rules restrict any use of the information to criminally investigate or prosecute any alcohol or drug abuse patient.[facility] Reason for Visit (unrecogniz ed section and [...] Refill Request 12/25/2024 Change to local [facility] Reason Onset Date Comments Refill Request 02/19/2025 Reason Onset Date Comments Population Health Navigation Outreach 02/24/2025 [employer] [facility] Care Teams (unrecognized sec tion and content) Delivery Professional Relationship Specialty Start Date End Date Piyush Rivera MD [address] [place], [place] [id number] PCP - General Internal Medicine 09/08/13 Delivery Professional Relationship Specialty Start Date End Date Piyush Rivera MD [address] [place], [place] [id number] PCP - General Internal Medicine 09/08/13 Delivery Professional Relationship Specialty Start Date End Date Piyush Rivera MD [address] [place] [address] PCP - General Internal Medicine 09/08/13 Delivery Professional Relationship Specialty Start Date End Date Piyush Rivera MD [address] [place] [address] PCP - General Internal Medicine 09/08/13 Delivery Professional Relationship Specialty Start Date End Date Piyush Rivera MD [address] [place] [address] PCP - General Internal Medicine 09/08/13 Delivery Professional Relationship Specialty Start Date End Date Piyush Rivera MD [address] [place] [address] PCP - General Internal Medicine 09/08/13 Delivery Professional Relationship Specialty Start Date End Date Piyush Rivera MD [address] [place] [address] PCP - General Internal Medicine 09/08/13 Delivery Professional Relationship Specialty Start Date End Date Piyush Rivera MD [address] [place] [address] PCP - General Internal Medicine 09/08/13 Delivery Professional Relationship Specialty Start Date End Date Piyush Rivera MD [address] [place] [address] PCP - General Internal Medicine 09/08/13 Delivery Professional Relationship Specialty Start Date End Date Piyush Rivera MD [address] [place] [address] PCP - General Internal Medicine 09/08/13 Delivery Professional Relationship Specialty Start Date End Date Piyush Rivera MD [address] [place] [address] PCP - General Internal Medicine 09/08/13 Delivery Professional Relationship Specialty Start Date End Date Piyush Rivera MD [address] [place] [address] PCP - General Internal Medicine 09/08/13 Delivery Professional Relationship Specialty Start Date End Date Piyush Rivera MD [address] [place] [address] PCP - General Internal Medicine 09/08/13 Team Status: Active Member Role Status Dates Dr. Piyush Rivera MD Family Provider Active Dr. Piyush Rivera MD Primary Care Provider Active Team Status: Inactive Member Role Status Dates Dr. Piyush Rivera MD Primary Care Provider Active Dr. Torsten Gregg MD Attending Provider, Referr ing Provider Active Delivery Professional Relationship Specialty Start Date End Date Piyush Rivera MD [address] [place] [address] PCP - General Internal Medicine 09/08/13 Delivery Professional Relationship Specialty Start Date End Date Piyush Rivera MD [address] [place] [address] PCP - General Internal Medicine 09/08/13 Delivery Professional Relationship Specialty Start Date End Date Piyush Rivera MD [address] [place] [address] PCP - General Internal Medicine 09/08/13 Delivery Professional Relationship Specialty Start Date End Date Piyush Rivera MD [address] [place] [address] PCP - General Internal Medicine 09/08/13 Delivery Professional Relationship Specialty Start Date End Date Piyush Rivera MD [address] [place] [address] PCP - General Internal Medicine 09/08/13 Delivery Professional Relationship Specialty Start Date End Date Piyush Rivera MD [address] [facility] [address] PCP - General Internal Medicine 09/08/13 Delivery Professional Relationship Specialty Start Date End Date Piyush Rivera MD [address] [place] [address] PCP - General Internal Medicine 09/08/13 Delivery Professional Relationship Specialty Start Date End Date Piyush Rivera MD [address] [place] [address] PCP - General Internal Medicine 09/08/13 Delivery Professional Relationship Specialty Start Date End Date Piyush Rivera MD [address] [place] [address] PCP - General Internal Medicine 09/08/13 Delivery Professional Relationship Specialty Start Date End Date Piyush Rivera MD [address] [place] [address] PCP - General Internal Medicine 09/08/13 Delivery Professional Relationship Specialty Start Date End Date Piyush Rivera MD [address] [place] [address] PCP - General Internal Medicine 09/08/13 Delivery Professional Relationship Specialty Start Date End Date Piyush Rivera MD [address] [place] [address] PCP - General Internal Medicine 09/08/13 Delivery Professional Relationship Specialty Start Date End Date Piyush Rivera MD [address] [place] [address] PCP - General Internal Medicine 09/08/13 Delivery Professional Relationship Specialty Start Date End Date Piyush Rivera MD [address] [place] [address] PCP - General Internal Medicine 09/08/13 Delivery Professional Relationship Specialty Start Date End Date Piyush Rivera MD [address] [place] [address] PCP - General Internal Medicine 09/08/13 Delivery Professional Relationship Specialty Start Date End Date Piyush Rivera MD [address] [place] [address] PCP - General Internal Medicine 09/08/13 Negra Ugalde, CCNP.CHILD WELFARE SOCIAL WORKER [address] [place] [address] [employer] Internal Medicine 08/04/24 Delivery Professional Relationship Specialty Start Date End Date Piyush Rivera MD [address] [place] [address] PCP - General Internal Medicine 09/08/13 Negra Ugalde, CCNP.CHILD WELFARE SOCIAL WORKER [address] [place] [address] [employer] Internal Medicine 08/04/24 Delivery Professional Relationship Specialty Start Date End Date Piyush Rivera MD [address] [place] [address] PCP - General Internal Medicine 09/08/13 Negra Ugalde, CCNP.CHILD WELFARE SOCIAL WORKER [address] [place] [address] Master [employer] Internal Medicine 08/04/24 Delivery Professional Relationship Specialty Start Date End Date Piyush Rivera MD [address] [place] [address] PCP - General Internal Medicine 09/08/13 Negra Ugalde, CCNP.CHILD WELFARE SOCIAL WORKER [address] [place] [address] Master [employer] Internal Medicine 08/04/24 Delivery Professional Relationship Specialty Start Date End Date Piyush Rivera MD [address] [place] [address] PCP - General Internal Medicine 09/08/13 Negra Ugalde, CCNP.CHILD WELFARE SOCIAL WORKER [address] [place] [address] [employer] Internal Medicine 08/04/24 Team Status: Active Member [...] November 06, 2024 End: November 06, 2024 Delivery Professional Relationship Specialty Start Date End Date Piyush Rivera MD [address] [place] [address] PCP - General Internal Medicine 09/08/13 Negra Ugalde, CCNP.CHILD WELFARE SOCIAL WORKER [address] [place] [address] Master [employer] Internal Medicine 08/04/24 Delivery Professional Relationship Specialty Start Date End Date Piyush Rivera MD [address] [place] [address] PCP - General Internal Medicine 09/08/13 Negra Ugalde, CCNP.CHILD WELFARE SOCIAL WORKER [address] [place] [address] Master [employer]ist Internal Medicine 08/04/24 Delivery Professional Relationship Specialty Start Date End Date Piyush Rivera MD [address] [place] [address] PCP - General Internal Medicine 09/08/13 Negra Ugalde, CCNP.CHILD WELFARE SOCIAL WORKER [address] [place] [address] Master [employer] Internal Medicine 08/04/24 Team Status: Inactive Member [...] Referring Provider Active Start: January 08, 2025 Delivery Professional Relationship Specialty Start Date End Date Piyush Rivera MD [address] [place] [address] PCP - General Internal Medicine 09/08/13 Negra Ugalde, CCNP.CHILD WELFARE SOCIAL WORKER [address] [place] [address] [employer] Internal Medicine 08/04/24 Team Status: Inactive Member Role Status Dates Dr. Piyush Rivera MD Primary Care Provider Active Start: January 08, 2025 End: January 08, 2025 Dr. Torsten Gregg MD Attending Provider Active Start: January 08, 2025 End: January 08, 2025 Dr. Torsten Gregg MD Referring Provider Active Start: January 08, 2025 End: January 08, 2025 Team Status: Inactive Member Role Status Dates Dr. Piyush Rivera MD Primary Care Provider Active Start: February 15, 2025 End: February 15, 2025 Dr. Deshawn Mendez DO Emergency Provider Active Start: February 15, 2025 End: February 15, 2025 Goals (unrecognized section and content) Goals may [...] BE BASED ON THE PRIMARY CLINICAL RECORDS. [facility]. provides no warranty or guarantee of the accuracy or completeness of information in this document.
[2025-02-25] MEDS: Lactated Ringers 1,000 ML 15 ML IV (06:30)
--- NOTE | 2025-02-25 07:17 | PCM.PRE.AN2 ---
ASA Classification* ASA Classification ASA Classification: 2 Assessment & Plan Anesthesia* Anesthesia Assessment Anesthesia Assessment: Discussed sedation and/or anesthesia options, risks, benefits, and alternatives with patient/parents/legal guardian/POA. Questions invited. The patient/parents/legal guardian/POA seems to understand and agrees to proceed with anesthesia plan. Reviewed the physical assessment, medical history, allergy history and patient home medications list prior to surgery/procedure/anesthetic and documented any changes. Performed airway and anesthesia risk assessments. Anesthesia Type Anesthesia Type: General History Source History Obtained from:: Patient and Chart Anesthesia Focused Assessment* Temperature: 98.2 F Pulse Rate: 76 Blood Pressure: 135/70 Respiratory Rate: 16 Pulse Ox: 96 Oxygen Delivery Method: Room Air Airway Assessment Mouth opens: >3 cm Mallampati Score: I Teeth Condition: Caps/Crowns (Patient has several crowns. They are all tight.) Neck Range of motion (ROM): Full ROM Labs Anesthesia Preop lab: CBC WBC 9.7 K/mm3 (4.4-11.0) 02/15/25 08:55 02/15/25 RBC 4.57 M/mm3 (4.6-6.2) L 02/15/25 08:55 02/15/25 Hgb 13.2 g/dL (13.0-16.5) 02/15/25 08:55 02/15/25 Hct 40.0 % (40-54) 02/15/25 08:55 02/15/25 Plt Count 183 K/mm3 (150-450) 02/15/25 08:55 02/15/25 CHEMISTRY Potassium 3.9 mmol/L (3.3-5.1) 02/15/25 08:55 02/15/25 Sodium 140 mmol/L (133-145) 02/15/25 08:55 02/15/25 Magnesium 1.7 mg/dL (1.8-2.4) L 08/17/17 05:28 08/17/17 BUN 17 mg/dL (4-19) 02/15/25 08:55 02/15/25 Creatinine 1.16 mg/dL (0.70-1.20) 02/15/25 08:55 02/15/25 Glucose 123 mg/dL (70-99) H 02/15/25 08:55 02/15/25 COAG Pre-Assessment Diagnosis/Proposed Procedure Planned Operative Procedure(s): LAP ROBOTIC SIMPLE PROSTATECTOMY Anesthesia History Anesthesia History - commercial counsel: Anesthesia History - commercial counsel Hx Hospitalization No 02/18/25 09:07 Any Problems With Anesthesia No 02/18/25 09:07 Cholinesterase deficiency No 02/18/25 09:07 You/Your Family Experience No 02/18/25 09:07 fever (hyperthermia) with Relationship Recent Exposure to Contagious No 02/25/25 06:46 Disease Does patient have nerve No 02/18/25 09:07 stimulator Patient instructed to have device shut off --Does patient have Pacemaker No 02/25/25 06:46 or ICD? When Was Last Pacemaker Check QUESTION #4 FULL TEXT: You/Your Family Experience fever (hyperthermia) with Anesthesia Last Oral Intake Last Oral intake: Last Oral Intake NPO since 00:00 02/25/25 06:46 Meds taken in AM with sips of No 02/25/25 06:46 water? Meds patient instructed to take am of surgery Any additional information?: Yes Meds taken in AM with sips of water?: Yes PONV PONV - commercial counsel: PONV - commercial counsel Female No 02/18/25 09:07 HX of Motion Sickness No 02/18/25 09:07 HX of N/V After Surgery No 02/18/25 09:07 Non-Smoker Yes 02/18/25 09:07 Duration of Surgery greater Yes 02/18/25 09:07 than 60 minutes Number of Risk Factors 2 02/18/25 09:07 PONV Score Moderate Risk 02/18/25 09:07 Height & Weight Height & Weight: Anesthesia: Height & Weight Height 5 ft 11 in 02/25/25 06:46 Weight: 73.6 kg 02/25/25 06:46 Body Mass Index (BMI) 22.6 02/25/25 06:46 Respiratory Assessment Respiratory Assessment - commercial counsel: Respiratory Tract Infection Hx - commercial counsel Hx Respiratory Tract Infection No 02/18/25 09:07 STOP Sleep Apnea STOP Sleep Apnea - commercial counsel: STOP Sleep Apnea - commercial counsel Hx Hypertension Yes: CONTROLLED WITH MED 02/18/25 09:07 Hx Sleep Apnea No 02/18/25 09:07 CPAP No 08/16/17 04:35 BIPAP No 08/16/17 04:35 Do you snore loudly (louder Yes 02/18/25 09:07 than talking or can be heard Do you often feel tired/ No 02/18/25 09:07 fatigued/ sleepy during daytime? Has anyone observed you stop No 02/18/25 09:07 breathing during sleep? STOP Results Positive 02/18/25 09:07 QUESTION #5 FULL TEXT : Do you snore loudly (louder than talking or can be heard through closed doors)? 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 Specify any problems Hx of Preganancy in last 3 N/A 02/18/25 09:07 Months Nurse Filling Out Transfusion DSCHRIBER 02/18/25 09:07 & Questions: Date: 02/18/25 02/18/25 09:07 Time: 09:08 02/18/25 09:07 Patient unable to answer at this time (ie. confused, unrespo /Reproduction History /Reproductive History - commercial counsel: /Reproductive Hx- commercial counsel Hx Now No 02/18/25 09:07 Gestational Age (in weeks): EDC: Hx Hx Para Hx Section SAB No 02/18/25 09:07 Active Medications Active Medications: Current Medications Generic Name Dose Route Start Last Admin Trade Name Freq PRN Reason Stop Dose Admin Cefazolin Sodium 2 gm/ Sodium 110 mls @ 200 mls/hr 02/25/25 07:30 Chloride IV 02/25/25 08:02 INTRAOP ONE Lactated Ringer's 1,000 mls @ 15 mls/hr 02/25/25 06:30 02/25/25 06:30 IV 15 mls/hr .Q48H CHELSEA Administration PFSH Medical History Wears glasses Cancer Alcohol use Indwelling urethral catheter present Prostate disease Non-smoker Leg cramps History of edema History of echocardiogram History of stress test History of gastric cancer Hypertension Home Medications Medication Instructions Recorded Last Taken Type amlodipine 10 mg tablet 10 mg PO DAILY blood pressure 12/15/16 02/25/25 History aspirin 81 mg chewable tablet 81 mg PO QHS heart 12/15/16 02/14/25 History Held on 02/25/25. Instructions: Resume on 02/25/25. finasteride 5 mg tablet 5 mg PO DAILY prostate 12/15/16 02/24/25 History folic acid 400 mcg tablet 0.4 mg PO DAILY supplement 12/15/16 02/24/25 History svryivyp-rba-uygxo acid 0.4 1 ea PO DAILY supplement 12/15/16 02/24/25 History mg-lycopene 300 mcg-lutein 250 mcg tablet tamsulosin 0.4 mg capsule 0.4 mg PO QHS prostate 12/15/16 02/24/25 History ergocalciferol (vitamin D2) 1,250 50,000 units PO .weekly supplement 08/15/17 02/23/25 History mcg (50,000 unit) capsule lisinopril 40 mg tablet 40 mg PO DAILY 02/15/25 02/24/25 History mecobalamin (vitamin B12) 10,000 10,000 mcg IM QMONTH 02/18/25 02/02/25 History mcg solution for injection ciprofloxacin HCl 500 mg tablet 500 mg PO BID #10 tabs 02/25/25 Unknown Rx (Cipro) Allergy/AdvReac Type Severity Reaction Status Date / Time No Known Allergies Allergy Verified 02/25/25 06:40 Surgical History Hx of right cataract extraction Hx of left cataract extraction History of esophagogastroduodenoscopy (EGD) Hx of colonoscopy History of cystoscopy S/P laparoscopic cholecystectomy (~08/16/17) Social History Smoking Status: Never smoker Review of Systems (Anesthesia) ROS Narrative System reviewed and no additional complaints, except as documented.
--- NOTE | 2025-02-25 07:22 | DCINST_ITS ---
Discharge Instructions Diet Discharge Diet: No restrictions and Light diet - advance as tolerated DC O2, CPAP, BIPAP needs Home O2 Discharge instructions: No Dressing / Incision Discharge Activity: Return to Normal Activity and May Not Drive (while taking narcotic pain medications.) Dressing / Incision Call your doctor if you observe: Fever of 101 or Higher and Uncontrolled pain Suture Line Care: Avoid Pulling/Pushing and Avoid Pinching/Bending Follow Up Care Please Follow Up With: Torsten Gregg MD When: Call [phone] for an appointment Test Results: Test results from this visit will be discussed in further detail at your follow- up appointment, if applicable. Discharge Plan Admission Primary Reason for Your Visit: TURP Attending Provider: Torsten Gregg Primary Care Provider: Piyush Rivera Instructions Print Language: Palestinian Discharge Orders/Prescriptions Prescriptions: New ciprofloxacin HCl [Cipro] 500 mg tablet 500 mg PO BID Qty: 10 0RF Continued folic acid 0.4 MG tablet 0.4 mg PO DAILY Patient Comments: supplement tamsulosin 0.4 MG capsule 0.4 mg PO QHS Patient Comments: prostate amlodipine 10 MG tablet 10 mg PO DAILY Patient Comments: blood pressure finasteride 5 MG tablet 5 mg PO DAILY Patient Comments: prostate kvikemka-weo-BB-lycopen-lutein 1 EACH tablet 1 ea PO DAILY Patient Comments: supplement ergocalciferol (vitamin D2) 50,000 U capsule 50,000 units PO .weekly Patient Comments: lisinopril 40 mg tablet 40 mg PO DAILY mecobalamin (vitamin B12) 10,000 mcg recon soln 10,000 mcg IM QMONTH Held aspirin 81 MG tablet,chewable 81 mg PO QHS Hold Instructions: Resume on 02/25/25. Patient Comments: health maintenance Referrals / Follow Up: Torsten Gregg MD [Med Staff - Active Staff] - Piyush Rivera MD [Primary Care Provider] - Disposition Disposition (needs filled in before D/C Order can be placed): Home, Self Care
[2025-02-25] MEDS: Cefazolin 2 GM in 0.9% Normal Saline (100mL Bag) 100 ML IV (07:27)
--- NOTE | 2025-02-25 07:27 | PCM.HP.STD ---
HPI - General General Date of Admission: 02/25/25 Date of Service: 02/25/25 Chief Complaint: BPH with obstruction retention of urine HPI Narrative SARAH HARDIN, is a 74 M who presents for resection of the prostate organ to do a staged resection plan to do for stage now and then he will to do a staged second resection later on this was explained to the patient he has a very large prostate will not be able to complete resection in 1 surgery [facility] Medical History Wears glasses Cancer Alcohol use Indwelling urethral catheter present Prostate disease Non-smoker Leg cramps History of edema History of echocardiogram History of stress test History of gastric cancer Hypertension Home Medications Medication Instructions Recorded Last Taken Type amlodipine 10 mg tablet 10 mg PO DAILY blood pressure 12/15/16 02/25/25 History aspirin 81 mg chewable tablet 81 mg PO QHS heart 12/15/16 02/14/25 History Held on 02/25/25. Instructions: Resume on 02/25/25. finasteride 5 mg tablet 5 mg PO DAILY prostate 12/15/16 02/24/25 History folic acid 400 mcg tablet 0.4 mg PO DAILY supplement 12/15/16 02/24/25 History dyypudrk-hiy-rbdxs acid 0.4 1 ea PO DAILY supplement 12/15/16 02/24/25 History mg-lycopene 300 mcg-lutein 250 mcg tablet tamsulosin 0.4 mg capsule 0.4 mg PO QHS prostate 12/15/16 02/24/25 History ergocalciferol (vitamin D2) 1,250 50,000 units PO .weekly supplement 08/15/17 02/23/25 History mcg (50,000 unit) capsule lisinopril 40 mg tablet 40 mg PO DAILY 02/15/25 02/24/25 History mecobalamin (vitamin B12) 10,000 10,000 mcg IM QMONTH 02/18/25 02/02/25 History mcg solution for injection ciprofloxacin HCl 500 mg tablet 500 mg PO BID #10 tabs 02/25/25 Unknown Rx (Cipro) Allergy/AdvReac Type Severity Reaction Status Date / Time No Known Allergies Allergy Verified 02/25/25 06:40 Surgical History Hx of right cataract extraction Hx of left cataract extraction History of esophagogastroduodenoscopy (EGD) Hx of colonoscopy History of cystoscopy S/P laparoscopic cholecystectomy (~08/16/17) Social History Smoking Status: Never smoker Vital Signs Vital Signs Vital Signs: 02/25/25 06:46 02/25/25 06:46 02/25/25 07:22 Temperature 98.2 F 98.2 F Temperature Source Temporal Pulse Rate 76 76 Respiratory Rate 16 16 Respiratory Pattern Normal Blood Pressure 135/70 H 135/70 H Blood Pressure Mean 91 Blood Pressure Source Monitor Blood Pressure Position Semi-Fowlers Blood Pressure Location Left Arm Pulse Ox 96 96 Oxygen Delivery Method Room Air Room Air Weight Weight: 73.6 kg Body Mass Index (BMI) 22.6
--- NOTE | 2025-02-25 07:30 | PROS_PTH ---
PATIENT: SARAH HARDIN Jr. LOC: MS3 U#:[id number] AGE/SX: 74/M ROOM: [facility] [place]02[place]25/[address]: Dr. Torsten Gregg MD : 1950 BED: 1 DIS: 02/26/2025 SPEC #: [id number] RECD: 02/25/25 10:05 STATUS: JOSELO PHILIPPE #: [id number] OSMEL: 02/25/25 07:[address]: Torsten Gregg DEPT: SURGICAL PATHOLOGY RECD BY: Doroteo Vital ENTERED: 02/25/25 10:44 SP TYPE: TURP OTHR DR: Dr. Piyush Rivera MD Tissues: A - Prostate, NOS Procedures: Surgery Specimen Level IV HEADER OPERATION: TUR, prostate, Olympus PRE-OP DIAGNOSIS: BPH TISSUE SUBMITTED: Prostate tissue MICROSCOPIC DIAGNOSIS A. Prostate tissue, "BPH", transurethral resection: - Benign prostate with stromal and glandular hyperplasia. MICROSCOPIC DESCRIPTION Slides are reviewed. GROSS DESCRIPTION A. Received in formalin labeled with the patient's name and date of . Designated as " prostate tissue" is a 13 g, 6.8 x 3.9 x 1.0 cm aggregate of irregular, sanders, rubbery and cauterized tissue fragments. Entirely submitted in 10 cassettes. [facility] 02/25/2025 CPT:70383
--- NOTE | 2025-02-25 08:39 | PCM.OPRPT ---
Operative Report (Standard) Operative Information Date of Procedure: 02/25/25 Pre-Operative Diagnosis: BPH with urinary retention Post-Operative Diagnosis: The same Surgery/Procedure Performed: Transurethral resection of the prostate, planned 1st staged procedure licensed architect: No Type of Anesthesia: General RN Documented Start/Stop Times: Operation Date: 02/25/25 07:30 Case Time Into Pre-Op 02/25/25 06:20 Anesthesia Start 02/25/25 07:27 Into Room 02/25/25 07:27 Out of Pre-Op 02/25/25 07:27 Procedure Start 02/25/25 07:40 Procedure End 02/25/25 08:38 Procedure Start Time: 07:40 Procedure Stop Time: 08:40 Select all DRAINS/GRAFTS/IMPLANTS that apply: Drains Drain details: 22 Beninese three-way Mcmahon Estimated Blood Loss: Minimal Specimen collected: Yes Description of specimen(s) removed: Prostate tissue Description of surgery: This is a 74-year-old gentleman who has a 200 g prostate cancer developed retention of urine talked about possibly doing a simple prostatectomy either open or laparoscopic robotic but he has had prior abdominal surgery midline incision from exploratory surgery and stomach surgery that was done by general surgeon long time ago probably has extensive amount of adhesions so I recommended against going off intra-abdominal procedure so organ to do a transurethral resection of the prostate but with such a large prostate and a plan to do a staged planned procedure today went resect just the left side of the prostate to get the entire left adenoma resected and then will plan for a second stage procedure in a few weeks to resect the right side of the prostate. Patient was taken back to the operating room after induction of anesthesia he was placed in dorsolithotomy position the catheter was removed and went into the bladder with a 26 Beninese continuous-flow resectoscope I used a large loop with a continuous-flow identified small median lobe this was brought down to the bladder neck fibers I then resected back to the verumontanum I then started resecting the left lobe of the prostate very carefully and also systematically resected the left lobe of the prostate to resect that completely back to the verumontanum I was there was had a lot of anterior tissue that had to be resected I then switched over to the button to smooth out the resection also obtain hemostasis cauterized all the obvious bleeders and then smooth out the resection all the chips were Ellik out of the bladder after an hour and a half of resecting the side of the stop as we complete the resection of just half the prostate, Mcmahon catheter was placed I did do a flow test he had good flow so very likely he should be able to urinate after this but he will need a second stage resection down the road with the patient's wishes to desire to have a complete resection. A Mcmahon catheter was placed and continuous irrigation and anesthesia is being reversed Surgical Findings: Very large prostate over 200 g only resected the left side of the prostate as a planned staged procedure Complications Complications: No Admit VTE Documentation VTE Present on Admission: No VTE Mechan Device Prophylaxis: SCD's VTE Pharm Prophylaxis ordered?: No
--- NOTE | 2025-02-25 08:55 | PCM.POST.ANE ---
Anesthesia: Postop Eval I Current Vital Signs Temperature: 97.4 F Pulse Rate: 80 Blood Pressure: 100/73 Respiratory Rate: 12 Pulse Ox: 95 Oxygen Delivery Method: Nasal Cannula Oxygen Flow Rate (L/min): 3 Assessment Airway patent: Yes Spontaneous unlabored respirations: Yes Mental status: Awake and Calm nausea: No Vomiting: No Anesthesia Complication: No Fluid Hydration Crystalloid volume administer (ml): 800 Total IV fluid infused: 800 Progress Note Anesthesia document: Postop Eval 1 completed: Yes
[2025-02-25] MEDS: 0.9% Normal Saline (1000mL) 1,000 ML 125 ML IV ×2 (10:55→20:27)
--- NOTE | 2025-02-25 14:54 | POSTOPAN2_ITS ---
Anesthesia Postop Eval I Sum Postop Eval Completion status Anesthesia document: Postop Eval 1 completed: Yes Anesthesia Postop Eval I Summary Anesthesia Postop Eval I Summary: Anesthesia Postop Eval I: Assessment Summary Airway patent Yes 02/25/25 08:56 FISHER [email or web address] [email or web address] Spontaneous unlabored Yes 02/25/25 08:56 FISHER TRAMMEL [email or web address] respirations Mental status Awake,Calm 02/25/25 08:56 FISHER [email or web address] [email or web address] nausea No 02/25/25 08:56 FISHER TRAMMEL [email or web address] Vomiting No 02/25/25 08:56 FISHER [email or web address] [email or web address] Anesthesia Postop Eval I: Fluid Summary Crystalloid volume administer 800 02/25/25 08:56 FISHER [email or web address] [email or web address] (ml) Colloids volume administered ( ml) Blood Product volume administered (ml) Total IV fluid infused 800 02/25/25 08:56 FISHER [email or web address] [email or web address] Anesthesia Postop Eval I: Summary Notes Anesthesia Complication No 02/25/25 08:56 FISHER [email or web address] [email or web address] Anesthesia Complication Comment: Post-operative progress note Anesthesia: Postop Eval II Evaluation Mental status: Awake Pain Level: 2 nausea: No Vomiting: No
--- NOTE | 2025-02-25 14:54 | PCM.POSTANE2 ---
Anesthesia Postop Eval I Sum Postop Eval Completion status Anesthesia document: Postop Eval 1 completed: Yes Anesthesia Postop Eval I Summary Anesthesia Postop Eval I Summary: Anesthesia Postop Eval I: Assessment Summary Airway patent Yes 02/25/25 08:56 [email or web address] [email or web address] Spontaneous unlabored Yes 02/25/25 08:56 CARGO [email or web address] respirations Mental status Awake,Calm 02/25/25 08:56 CARGO [email or web address] nausea No 02/25/25 08:56 CARGO AGENT.SHOF Vomiting No 02/25/25 08:56 CARGO [email or web address] Anesthesia Postop Eval I: Fluid Summary Crystalloid volume administer 800 02/25/25 08:56 CARGO [email or web address] (ml) Colloids volume administered ( ml) Blood Product volume administered (ml) Total IV fluid infused 800 02/25/25 08:56 CARGO AGENT.SHOF Anesthesia Postop Eval I: Summary Notes Anesthesia Complication No 02/25/25 08:56 CARGO [email or web address].SHOF Anesthesia Complication Comment: Post-operative progress note Anesthesia: Postop Eval II Evaluation Mental status: Awake Pain Level: 2 nausea: No Vomiting: No
[2025-02-26 02:24] VITALS: BP 133/70; PULSE 72; RESP 18; TEMP 36.9; O2SAT 94
[2025-02-26 04:11] VITALS: BP 138/79; PULSE 75; RESP 18; TEMP 36.9; O2SAT 98
[2025-02-26] MEDS: 0.9% Normal Saline (1000mL) 1,000 ML 125 ML IV (04:13)
[2025-02-26 05:35] LABS: Hematocrit 34.7 % (40-54); Hemoglobin 11.1 g/dL (13.0-16.5); Immature Granulocytes Count 0.070 X10^3/uL (0.0-0.0); Mean Corp Hgb Conc 32.0 g/dL (32-36); Mean Corpuscular Volume 89.0 fL (80-94); Mean Platelet Vol. 10.6 fl (6.2-12.0); NRBC Flagged by Analyzer 0 % (0-5); Platelet Count 232 K/mm3 (150-450); RBC Distribution Width CV 14.4 % (11.6-14.6); RBC Distribution Width SD 46.3 fl (35.1-43.9); Red Blood Count 3.90 M/mm3 (4.6-6.2); White Blood Count 14.5 K/mm3 (4.4-11.0)
[2025-02-26 06:07] LABS: Anion Gap 9 (5-15); BUN 19 mg/dL (4-19); BUN/Creat Ratio 18.6 RATIO (10-20); Calcium,Total 8.3 mg/dL (7.6-11.0); Carbon Dioxide 23.9 mmol/L (21.0-32.0); Chloride 108 mmol/L (98-108); Estimated Creatinine Clearance 66.80 ml/min (50-250); Glucose 113 mg/dL (70-99); Potassium 4.2 mmol/L (3.3-5.1)
--- NOTE | 2025-02-26 07:11 | PCM.DC.SUM ---
Providers Date of Admission: 02/25/25 Date of Discharge: 02/26/25 Primary Care Physician: Dr. Piyush Rivera MD Reason For Visit: TURP OLYMPUS Medications at Discharge Home Medications amlodipine 10 mg tablet 10 mg PO DAILY blood pressure 12/15/16 aspirin 81 mg chewable tablet 81 mg PO QHS heart 12/15/16 Held on 02/25/25. Instructions: Resume on 02/25/25. finasteride 5 mg tablet 5 mg PO DAILY prostate 12/15/16 folic acid 400 mcg tablet 0.4 mg PO DAILY supplement 12/15/16 ojejtqdq-bpf-qufqu acid 0.4 mg-lycopene 300 mcg-lutein 250 mcg tablet 1 ea PO DAILY supplement 12/15/16 tamsulosin 0.4 mg capsule 0.4 mg PO QHS prostate 12/15/16 ergocalciferol (vitamin D2) 1,250 mcg (50,000 unit) capsule 50,000 units PO .weekly supplement 08/15/17 lisinopril 40 mg tablet 40 mg PO DAILY 02/15/25 mecobalamin (vitamin B12) 10,000 mcg solution for injection 10,000 mcg IM QMONTH 02/18/25 ciprofloxacin HCl 500 mg tablet (Cipro) 500 mg PO BID #10 tabs 02/25/25 Hospital Course Operations TURP Physical Exam Const alert and oriented x3 General Appearance: cooperative HEENT normocephalic and head/scalp atraumatic Eyes PERRL and EOMs intact bilaterally Neck supple, no JVD and no carotid bruits Resp normal respiratory effort, normal air movement and clear to auscultation bilaterally Cardio regular rate and no murmurs GI normal to inspection, nondistended, normoactive bowel sounds and soft to palpation Extremity normal capillary refill General Extremity: no tenderness to palpation of joints or extremities; Negative for edema Skin no rashes or lesions noted and no wounds General Skin Exam: no breakdown Neuro CN's II-XII intact bilaterally Psych affect normal Appearance: appropriate Weight / BMI Weight Weight: 73.6 kg Body Mass Index (BMI) 22.6 ABG / Lab / Microbiology Data 02/26/25 04:43 02/26/25 04:43 Laboratory: Laboratory Results - last 24 hr 02/26/25 04:43: WBC 14.5 H, RBC 3.90 L, Hgb 11.1 L, Hct 34.7 L, MCV 89.0, MCH 28.5, MCHC 32.0, RDW Std Deviation 46.3 H, RDW Coeff of Gogo 14.4, Plt Count 232, MPV 10.6, Immature Gran % (Auto) 0.500, Neut % (Auto) 80.9 H, Lymph % (Auto) 10.6 L, [place] % (Auto) 7.8, Eos % (Auto) 0.1, Baso % (Auto) 0.1, Absolute Neuts (auto) 11.8 H, Absolute Lymphs (auto) 1.54, Nucleated RBC % 0, Sodium 140, Potassium 4.2, Chloride 108, Carbon Dioxide 23.9, Anion Gap 9, BUN 19, Creatinine 1.01, Estim Creat Clear Calc 66.80, Est GFR (MDRD) Non-Af 78, BUN/Creatinine Ratio 18.6, Glucose 113 H, Calcium 8.3 D/C Instructions Discharge Diet: No restrictions and Light diet - advance as tolerated Call your doctor if you observe: Fever of 101 or Higher and Uncontrolled pain Suture Line Care: Avoid Pulling/Pushing and Avoid Pinching/Bending DC O2, CPAP, BIPAP Needs Home O2 Discharge instructions: No Please Follow Up With: Torsten Gregg MD When: Call [phone] for an appointment Meaningful Use Info Meaningful Use Meaningful Use Diagnoses (Choose all that apply): None applicable Ischemic Stroke Statin Dosing Therapy Reference: STATIN DOSE THERAPY REFERENCE: * Patients > 75 years receive moderate or high dose statin therapy. * Patients 75 years or YOUNGER should receive HIGH intensity statin dose unless contraindicated. You will be required to document reason for non-treatment if statin daily dose does not meet guidelines. HIGH DOSE STATIN THERAPY DAILY Atorvastatin > than or = to 40 mg Rosuvastatin > than or = to 20 mg Amlodipine + Atorvastatin > than or = to 2.5/40 mg Ezetimibe + Simvastatin 10/80 mg Simvastatin 80mg Discharge Plan Admission Admit Date/Time: 02/25/25 07:19 Primary Reason for Your Visit: SOFYA Attending Provider: Torsten Gregg Primary Care Provider: Piyush Rivera Discharge Orders/Prescriptions Prescriptions: New ciprofloxacin HCl [Cipro] 500 mg tablet 500 mg PO BID Qty: 10 0RF Continued folic acid 0.4 MG tablet 0.4 mg PO DAILY Patient Comments: supplement tamsulosin 0.4 MG capsule 0.4 mg PO QHS Patient Comments: prostate amlodipine 10 MG tablet 10 mg PO DAILY Patient Comments: blood pressure finasteride 5 MG tablet 5 mg PO DAILY Patient Comments: prostate pjwmfxkg-wak-CQ-lycopen-lutein 1 EACH tablet 1 ea PO DAILY Patient Comments: supplement ergocalciferol (vitamin D2) 50,000 U capsule 50,000 units PO .weekly Patient Comments: lisinopril 40 mg tablet 40 mg PO DAILY mecobalamin (vitamin B12) 10,000 mcg recon soln 10,000 mcg IM QMONTH Held aspirin 81 MG tablet,chewable 81 mg PO QHS Hold Instructions: Resume on 02/25/25. Patient Comments: health maintenance Referrals / Follow Up: Torsten Gregg MD [Med Staff - Active Staff] - Piyush Rivera MD [Primary Care Provider] - Disposition Discharge Orders: Discharge Patient (Routine); Ordered 02/26/25 Ordered By: Dr. Torsten Gregg
[2025-02-26 08:56] VITALS: BP 146/68; PULSE 78; RESP 18; TEMP 36.7; O2SAT 95
== END 2025-02-26 10:55 | disposition home or self-care (01) ==
LOC: SDC 09:59 → MS3 09:59
PROVIDERS: Admitting Provider Urology; PCP Internal Medicine; Referring Provider Urology; Visit Provider Urology
PROC: (CPT 52601; principal; 2025-02-25 07:20)
DX: N40.1 Benign prostatic hyperplasia with lower urinary tract symptoms (principal); I10 Essential (primary) hypertension; R33.8 Other retention of urine; Z79.82 Long term (current) use of aspirin; Z79.899 Other long term (current) drug therapy
CPT/HCPCS: 52601; 00914; 36415; 80048; 85025; 88305; 93005; 94762; 96361; 96365; 96366; 99221; G0378; J0744; J2405

== ENCOUNTER → 2025-07-21 | Outpatient (CLI) | payer MEDICARE, SELFPAY ==
[2025-07-21 11:09] LABS: PSA,Total- Diagnostic 13.10 ng/mL (0.00-4.00)
== END | disposition home or self-care (01) ==
PROVIDERS: PCP Internal Medicine; Referring Provider Urology; Visit Provider Urology
DX: R97.20 Elevated prostate specific antigen [PSA] (principal)
CPT/HCPCS: 36415; 84153